=== PATIENT | male | born 1995 | race Caucasian/White ===

== ENCOUNTER 2017-12-15 09:16 | Emergency (ER) | payer OTHER ==
[~2017-12-15] VITALS: Ht 175.3 cm; Wt 61.5 kg
[~2017-12-15 09:16] MED LIST: ACETAMINOPHEN-1 EAC1 PO; ACETAMINOPHEN500 MG PO; CEPHALEXIN500 MG PO; CIPRO500 MG PO; CLINDAMYCIN HC150 MG PO; CLINDAMYCIN HC300 MG PO; IBUPROFEN200 M1 PO; IBUPROFEN400 MG PO; KEFLEX500 MG PO; LEVAQUIN500 MG PO; LEVAQUIN750 MG PO; NAPROSYN500 MG PO; NORCO 5-325 TA1 EACH PO; ONDANSETRON ODT4 MG PO; OXYCODONE-ACET1 EAC1 PO; PERCOCET 5-3251 EACH PO; TYLENOL325 MG PO; ZOFRAN ODT8 MG PO
--- OUTSIDE RECORDS SUMMARY | 2017-12-15 10:17 | XMS | Clinical Summary ---
Demographics + + + | Address | [address] | | | [place] [address] | + + + | Home Phone | | + + + | Preferred Language | Unknown | + + + | Marital Status | Single | + + + | Shinto Affiliation | CHR | + + + | Race | White | + + + | Ethnic Group | Not or | + + + Author + + + | Author | [facility] | + + + | Organization | [facility] | + + + | Address | Unknown | + + + | Phone | Unavailable | + + + Support +------+ + + + +-------+ | Name | Relationship | Address | Phone | +------+ + + + +-------+ ECON | [address] | | [place] | [address] | +------+ + + + +-------+ Care Team Providers + +------+ + | Care Pediatric Immunologist Name | Role | Phone | + +------+ + | No Pcp Per Patient | PP | Unavailable | + +------+ + Source Comments KELSEY is fully live on both [facility] Ambulatory and [facility] InPatient.[facility] Allergies + + + + + + | Active Allergy | Reactions | Severity | Noted | Comments | | | | | Date | | + + + + + + | Amoxicillin | Rash | | 12/18/19 | | | | | | 05 | | + + + + + + | Latex | Hives, Pruritus | | 04/07/20 | | | | | | 11 | | + + + + + + | Morphine | Hives, Edema | | 04/07/20 | | | | | | 11 | | + + + + + + Current Medications + + + +---------+------+------+-------+ | Prescription | Sig. | Disp. | Refills | Star | End | Statu | | | | | | t | Date | s | | | | | | Date | | | + + + +---------+------+------+-------+ | ibuprofen 200 mg | Take 1 Tab by mouth | | | 05/3 | | Activ | | Oral Tablet | every six hours as | | | 020 | | e | | | needed. | | | 12 | | | + + + +---------+------+------+-------+ | ibuprofen 600 mg | Take 1 Tab by mouth | 30 Tab | 0 | 05/3 | | Activ | | Oral Tablet | every eight hours as | | | 0/20 | | e | | | needed for moderate | | | 12 | | | | | pain. Take with | | | | | | | | food and a full | | | | | | | | glass of water. | | | | | | + + + +---------+------+------+-------+ | oxyCODONE, | Take 1 Tab by mouth | 14 Tab | 0 | 05/3 | | Activ | | immediate release, 5 | every six hours as | | | 0/20 | | e | | mg Oral Tablet | needed for severe | | | 12 | | | | | pain. | | | | | | + + + +---------+------+------+-------+ | | Take 1 Tab by mouth | 10 Tab | 0 | 05/3 | | Activ | | trimethoprim-sulfame | two times daily. | | | 0/20 | | e | | thoxazole 160-800 mg | | | | 12 | | | | Oral Tablet | | | | | | | + + + +---------+------+------+-------+ | DIAPER,BRIEF, | 1 Units by Does not | 192 | 11 | 02/2 | | Activ | | ADULT,DISPOSABLE | apply route. Please | Units | | 8/20 | | e | | MiscIndications: | provide pull-up | | | 13 | | | | Spina bifida without | continence diaper, | | | | | | | mention of | small men's size for | | | | | | | hydrocephalus, | management of | | | | | | | lumbar region, | neurogenic bladder, | | | | | | | Neurogenic bladder, | bowel (596.54, | | | | | | | NOS, Neurogenic | 564.81). | | | | | | | bowel | | | | | | | + + + +---------+------+------+-------+ | CATHETER | | 150 | 11 | 12/18 | | Activ | | MiscIndications: | | Each | | 07/05 | | e | | Spina bifida without | | | | 13 | | | | mention of | | | | | | | | hydrocephalus, | | | | | | | | lumbar region, | | | | | | | | Neurogenic bladder, | | | | | | | | NOS | | | | | | | + + + +---------+------+------+-------+ | DIAPER,BRIEF, | 1 Units by Does not | 192 | 11 | 12/18 | | Activ | | ADULT,DISPOSABLE | apply route. Please | Units | | 07/05 | | e | | MiscIndications: | provide pull-up | | | 13 | | | | Spina bifida without | continence diaper, | | | | | | | mention of | small men's size for | | | | | | | hydrocephalus, | management of | | | | | | | lumbar region, | neurogenic bladder, | | | | | | | Neurogenic bladder, | bowel (596.54, | | | | | | | NOS, Neurogenic | 564.81). | | | | | | | bowel | | | | | | | + + + +---------+------+------+-------+ | cephALEXin | Take 2 capsules by | 84 | 0 | 04/0 | | Activ | | (KEFLEX) 500 mg oral | mouth every eight | capsule | | 9/20 | | e | | capsule | hours for 14 days. | | | 14 | | | | | Take all pills. | | | | | | + + + +---------+------+------+-------+ Active Problems + + + | Problem | Noted Date | + + + | History of migraine headaches | 04/07/2011 | + + + | Abnormal gait | 10/09/2010 | + + + | Tethering of spinal cord (HCC) | 10/02/2010 | + + + | Menopausal syndrome | 01/23/2010 | + + + + + | Overview: Parents | | from sibling | | ICD10 | + + + + + | Leg Length Discrepancy, right | 09/12/2009 | + + + | Pes Cavus, right | 06/06/2009 | + + + | Decubitus ulcer of heel | 06/06/2009 | + + + | Contracture of ankle and foot joint | 05/05/2008 | + + + | Monoparesis (HCC) | 05/05/2008 | + + + | Scoliosis | 05/03/2008 | + + + + + | Overview: dextrosc | + + + + + | Visual impairment | 05/03/2008 | + + + + + | Overview: Difficulty tracking upward and to the right noted | | on exam-07-20 | + + + + + | Spina bifida of lumbar region (HCC) | 1995 | + + + + + | Overview: Lipomyelomeningocele- repaired 3-, 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 | + + + + + | Delayed milestones | 1995 | + + + + + | Overview: Slow academic process. - well below grade level in | | all areas. | + + + + + | Lipoma of other specified sites | 1995 | + + + Resolved Problems + + + + | Problem | Noted | Resolved | | | Date | Date | + + + + | Paraparesis (HCC) | 05/05/20 | | | | 08 | 8 | + + + + | Equinus deformity of foot, acquired | 04/21/20 | | | | 07 | 9 | + + + + Family History + + +------+ + | Medical History | Relation | Name | Comments | + + +------+ + | Non-contributory | | | No other known family history of NTD | + + +------+ + + +------+--------+ + | Relation | Name | Status | Comments | + +------+--------+ + Social History + +-------+ +--------+------+ | Tobacco Use | Types | Packs/Day | Years | Date | | | | | Used | | + +-------+ +--------+------+ | Passive Smoke | | | | | | Exposure - Never | | | | | | Smoker | | | | | + +-------+ +--------+------+ + +---+---+---+ | Smokeless Tobacco: | | | | | Current User | | | | + +---+---+---+ + + | Comments: parents smoke outside the house. | + + + + +---------+ + | Alcohol Use | Drinks/We | oz/Week | Comments | | | ek | | | + + +---------+ + | No | | | | + + +---------+ + + + + | Sex Assigned at | Date Recorded | | | | + + + | Not on file | | + + + Last Filed Vital Signs + + + + | Vital Sign | Reading | Time Taken | + + + + | Blood Pressure | 136/72 | 06/03/2012 3:54 PM PDT | + + + + | Pulse | 58 | 06/03/2012 3:54 PM PDT | + + + + | Temperature | 36.3 C (97.4 F) | 06/03/2012 3:54 PM PDT | + + + + | Respiratory Rate | 20 | 04/14/2012 8:00 PM PDT | + + + + | Oxygen Saturation | 97% | 04/14/2012 8:00 PM PDT | + + + + | Inhaled Oxygen | - | - | | Concentration | | | + + + + | Weight | 54.3 kg (119 lb 11.4 | 06/03/2012 3:54 PM PDT | | | oz) | | + + + + | Height | 171.1 cm (5' 7.36") | 06/03/2012 3:54 PM PDT | + + + + | Body Mass Index | 18.55 | 06/03/2012 3:54 PM PDT | + + + + Plan of Treatment + + + + + | Health Maintenance | Due Date | Last Done | Comments | + + + + + | INFLUENZA VACCINE | | | | | (FLU SHOT) | 7 | | | + + + + + Results Not on filefrom Last 3 Months
--- OUTSIDE RECORDS SUMMARY | 2017-12-15 10:17 | XMS | Clinical Summary ---
Demographics + + + | Address | [address] | | | [place] [address] | + + + | Home Phone | | + + + | Preferred Language | Unknown | + + + | Marital Status | Single | + + + | Taoism Affiliation | CHR | + + + [...] [address] | | [place] | [address] | +------+ + + + +-------+ Care Team Providers + +------+ + | Care Director Medical Writing Name | Role | Phone | + +------+ + | No Pcp Per Patient | PP | Unavailable | + +------+ + Source Comments KELSEY is fully live on both [facility] Amb[facility] and [facility] InPatient.[facility] Allergies + + + + + + [...] Lipomyelomeningocele- repaired 3-, 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
[2017-12-15] MEDS ORDERED: MACROBID 100 M100 MG PO (11:01)
[2018-01-05] MEDS ORDERED: CEPHALEXIN500 MG PO (23:25)
[2018-01-05] MEDS ORDERED: TRAMADOL HCL50 MG PO (23:25)
== END 2017-12-15 11:12 | disposition home or self-care (01) ==
LOC: ED 09:16
DX: R45.851 Suicidal ideations (principal); N39.0 Urinary tract infection, site not specified; F17.200 Nicotine dependence, unspecified, uncomplicated
CPT/HCPCS: 80053; 80176; 81001; 84443; 85025; 87077; 87088; 87186; 99284; G0480

== ENCOUNTER 2018-05-04 19:11 | Emergency (ER) | payer OTHER ==
[~2018-05-04] VITALS: Ht 180.3 cm; Wt 61.2 kg
[~2018-05-04 19:11] MED LIST changes: +MACROBID 100 M100 MG PO; +TRAMADOL HCL50 MG PO
[2018-05-04] MEDS ORDERED: KEFLEX500 MG PO (23:11)
== END 2018-05-04 23:40 | disposition home or self-care (01) ==
LOC: ED 19:11
DX: N39.0 Urinary tract infection, site not specified (principal); F17.200 Nicotine dependence, unspecified, uncomplicated; Z88.0 Allergy status to penicillin; Z88.5 Allergy status to narcotic agent; Z91.040 Latex allergy status; Z88.1 Allergy status to other antibiotic agents
CPT/HCPCS: 74177; 80053; 81001; 83690; 85025; 85610; 85730; 96361; 96374; 96375; 99284; J1170; J2405; J7030; Q9967

== ENCOUNTER 2019-10-26 16:30 | Emergency (ER) | payer OTHER ==
[~2019-10-26] VITALS: Ht 180.3 cm; Wt 65.8 kg
--- OUTSIDE RECORDS SUMMARY | ~2019-10-26 | XMS | Encounter Summary ---
Demographics + + + | Address | [address] | | | [place] [address] | + + + | Home Phone | | + + + | Preferred Language | Unknown | + + + | Marital Status | Single | + + + | Baptist Affiliation | CHR | + + + | Race | White | + + + | Ethnic Group | Not or | + + + Author + + + | Author | [facility] | + + + | Organization | [facility] | + + + | Address | Unknown | + + + | Phone | Unavailable | + + + Support + + + + + | Name | Relationship | Address | Phone | + + + + + | Sarahi Orozco | ECON | [address] | | | | | [place] | | | | | [address] | | + + + + + Care Team Providers + +------+ + | Care Flume Tender Name | Role | Phone | + +------+ + | Dajuan Jerome MD | PCP | | + +------+ + Reason for Visit + + + | Reason | Comments | + + + | Spina bifida | | + + + Encounter Details +--------+---------+ + + + | Date | Type | Department | Care Team | Description | +--------+---------+ + + + | 05/03/ | Office | [facility] at [facility] 7th | [place], | Spina Bifida without | | 2007 | Visit | Floor [address] | Neli, EXTRUSION UTILITY WORKER [address] | Mention of | | | | St Mailcode: [facility] | [address] [facility] | Hydrocephalus, | | | | [facility] [place], [place] | [address] [place], [place] | Lumbar Region; | | | | [address] | [address] | Delayed Milestones | | | | [phone] | | | +--------+---------+ + + + Social History + +-------+ +--------+------+ | Tobacco Use | Types | Packs/Day | Years | Date | | | | | Used | | + +-------+ +--------+------+ | Never Assessed | | | | | + +-------+ +--------+------+ + + + | Sex Assigned at | Date Recorded | | | | + + + | Not on file | | + + + + + + + | Job Start Date | Occupation | Industry | + + + + | Not on file | Not on file | Not on file | + + + + + + + + | Travel History | Travel Start | Travel End | + + + + + + | No recent travel history available. | + + documented as of this encounter Progress Neli Kumar - 05/03/2008 10:31 AM [facility] Social Work Note - [facility] Pete, 12 years of age, comes [facility] with his father Yamil and his broth fish Coleman. This is a return visit for Pete, he has a diagnostic list that includes a repair ed lipomyelomeningocele, neurogenic bowel and bladder. Pete lives in [place] with his parents and 10 year old brother Jared. Pete's dad works outside of the family home driving a milk truck, mother (Nicky) works for [employer] . Pete reports that his favorite leisure activities involve playing baseball and soccer w ith his brother. He reports that he has a dirt bike that he enjoys riding and working on. When weather allows, he prefers to be outside and physically active. He is currently on a b aseball team and in a [employer] troop. He has some nice responsibilities at home that includ es washing dishes, taking garbage out and doing some laundry chores. Pete is a 6th grader at [employer] where he is on an IEP and receives academic support in a learning center in math, social studies, science, writing and reading. He is in the resource room m ost of each day, he is mainstreamed for PE, music, library and reading time. He has a bathr oom to use and to store his incontinence supplies. Next fall he will transition to a mid e school, Yamil reports that there has already been an IEP meeting held for transition plann ing. A further review of community resources reveals that Gabriel receives primary health care at the [facility], medical insurance is through [employer] through Nicky's employer. Yamil was candid in his discussion of family finances, insurance does not cover pull ups and the expense is hard for this family to meet. I will look into the Family Suppo rt Program for funding for pull ups for Pete, he is currently using 2 to 4 of the GoodNig ht style (extra large) each day. Raising gas & food prices is also hitting this family hard , Yamil reports that they do have free food pantries in [facility] and Nicky uses them regularly. Family income is too high for food stamp eligibility. These are issues that so cia work might monitor during future visits to clinic for Pete. NELI ROBISON [facility] Social Work Department [facility] phone: [phone] Addendum: 05/05/08, I called [employer] and described what Pete currently using for incontinen ce wear, they will send 3 samples of 2 different sizes of puul up for him to try. I called mom and told her they were coming & asked he to call me back oif one worked for them, I can then place a request in the Family Support Program to pay for the pull ups. documented in this enc ounter Plan of Treatment Not on filedocumented as of this encounter Visit Diagnoses + + | Diagnosis | + + | Spina bifida without mention of hydrocephalus, lumbar region | + + | Delayed milestones | + + documented in this encounter"
--- OUTSIDE RECORDS SUMMARY | ~2019-10-26 | XMS | Encounter Summary ---
Demographics + + + | Address | [address] | | | [place] [address] | + + + | Home Phone | | + + + | Preferred Language | Unknown | + + + | Marital Status | Single | + + + | Jew Affiliation | CHR | + + + | Race | White | + + + | Ethnic Group | Not or | + + + Author + + + | Author | [facility] | + + + | Organization | [facility] | + + + | Address | Unknown | + + + | Phone | Unavailable | + + + Support + + + + + | Name | Relationship | Address | Phone | + + + + + | Sarahi Orozco | ECON | [address] | | | | | [place] | | | | | [address] | | + + + + + Care Team Providers + +------+ + | Care Fuel Cell Battery Technician Name | Role | Phone | + +------+ + | Dajuan Jerome MD | PCP | | + +------+ + Encounter Details +--------+ + + + + | Date | Type | Department | Care Team | Description | +--------+ + + + + | 02/03/ | Procedure - | Digestive Health | Record, Operation | Operative Report | | 1996 | | [place] [facility] [address] | | | | | Transcribed | Nasir Tineo | | | | | | Mailcode: Center | | | | | | [facility] | | | | | | [facility]aling, [address] | | | | | | [place], [place] | | | | | | [address] | | | | | | [phone] | | | +--------+ + + + + Social History + +-------+ [...] + + documented as of this encounter Plan of Treatment Not on filedocumented as of this encounter Procedures + +--------+ + + + | Procedure Name | Priori | Date/Time | Associated Diagnosis | Comments | | | ty | | | | + +--------+ + + + | OPERATION RECORD | | 02/03/1997 | | Results for this | | | | 12:00 AM | | procedure are in the | | | | [facility] | | results section. | + +--------+ + + + documented in this encounter Results OPERATION RECORD (02/03/1997 12:00 AM [facility]) + + | Procedure Note | + + | 02/03/1997 12:00 AM [facility] | | [facility] | | [address], [place] [address] | | [facility] | | | | OPERATION RECORD | | | | Med Rec No.: [id number] Date: 02/03/97 | | | | Name: Pete Orozco Luz | | | | | | ATTENDING SURGEON: Dave Malik M.D. | | Roofing Laborer, | | Urology | | | | CROWNING INSPECTOR(S): Ba Dixon M.D. | | Resident, Urology | | | | PREOPERATIVE DIAGNOSIS(ES): History of urinary tract infection; | | uncircumcised. | | | | POSTOPERATIVE DIAGNOSIS(ES): Same. | | | | OPERATION(S) PERFORMED: Circumcision. | | | | ANESTHESIA: General with penile block at conclusion of | | procedure. 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 He had it closed | | and has | | had no difficulties associated with that. He has, however, had a urinary | | tract infection. He carries no postvoid residual. He has had a normal | | voiding cystourethrogram and a normal ultrasound. Because of his urinary | | tract infection and the fact that he still has his foreskin, he is now taken | | to the Operating Room for circumcision. | | | | FINDINGS: Non-phimotic foreskin, excised without | | difficulty. | | | | SPECIMEN(S) REMOVED: None. | | | | PROCEDURE: The patient was taken to the Operating Room, | | identified, and general anesthesia was | | administered. He was placed | | in a supine position, and his abdomen and genitalia were prepped and draped | | in the usual sterile fashion. | | A circumferential incision was made in the shaft skin at the level of the | | tidwell. The foreskin was then retracted, and another circumferential | | incision was made just proximal to the coronal sulcus. The ring of foreskin | | was then excised. Electrocautery was used to achieve hemostasis, and the | | two skin edges were approximated with interrupted 5-0 chromic sutures. The | | two edges of the frenulum were closed with a pair of interrupted 5-0 | | chromics. 0.5% plain Marcaine was used to perform a penile block at the | | base of the penis. 1 cc was infiltrated at the 10 o'clock and 2 o'clock | | positions. Bacitracin ointment was applied to the incision line. | | | | The patient tolerated the procedure well, and after being extubated he was | | returned to the Post Anesthesia Care Unit in stable condition. The | | estimated blood loss was less than 20 cc. No complications were noted. | | King was present and actively participated in the procedure. | | | | | | | | | | Ba Dixon M.D. | | Resident, Urology | | Dave Malik M.D. | | Roofing Laborer, | | Urology | | | | | | | | W/cjs | | | | A | | | | cc: | | | + + documented in this encounter Visit Diagnoses Not on filedocumented in this encounter"
--- OUTSIDE RECORDS SUMMARY | ~2019-10-26 | XMS | Encounter Summary ---
Demographics + + + | Address | [address] | | | [place] [address] | + + + | Home Phone | | + + + | Preferred Language | Unknown | + + + | Marital Status | Single | + + + | Congregation Affiliation | CHR | + + + | Race | White | + + + | Ethnic Group | Not or | + + + Author + + + | Author | [facility] | + + + | Organization | [facility] | + + + | Address | Unknown | + + + | Phone | Unavailable | + + + Support + + + + + | Name | Relationship | Address | Phone | + + + + + | Sarahi Orozco | ECON | [address] | | | | | [place] | | | | | [address] | | + + + + + Care Team Providers + +------+ + | [facility] [employer] Specialist Name | Role | Phone | + +------+ + PCP | Unavailable | + +------+ + Encounter Details +--------+ + + + + | Date | Type | Department | Care Team | Description | +--------+ + + + + | 02/15/ | Results | [facility] | Dave Malik MD | | | 1995 | Only | Floor [address] | [address] | | | | | [address] Mailcode: [facility] | Marit[facility] Fer[facility] [place], | | | | | [facility] [place], [place] | [place] [address] | | | | | [address] | [phone] | | | | | [phone] | | | +--------+ + + + [...] | + +--------+ + + + | US BLADDER | Routin | 05/02/1996 | | Results for this | | | e | 2:50 PM | | procedure are in the | | | | PDT | | results section. | + +--------+ + + + | CYSTOGRAM, VOIDING | Routin | 02/16/1996 | | Results for this | | | e | 9:30 AM | | procedure are in the | | | | PST | | results section. | + +--------+ + + + | US KIDNEY BILATERAL | Routin | 02/16/1996 | | Results for this | | | e | 8:42 AM | | procedure are in the | | | | PST | | results section. | + +--------+ + + + | US BLADDER | Routin | 02/16/1996 | | Results for this | | | e | 8:42 AM | | procedure are in the | | | | PST | | results section. | + +--------+ + + + documented in this encounter Results US BLADDER (05/02/1996 2:50 PM PDT) + + + + + + | Component | Value | Ref Range | Performed | Pathologist | | | | | At | Signature | + + + + + + | US BLADDER | Radiologist 1: | | | | | | MIGUEL KONG, | | | | | | ADAMA RAMIREZ. | | | | | | | | | | | | | | | | | | [birth year] | | | | | | ULTRASOUND OF THE | | | | | | BLADDER: 05-02-96. | | | | | | DICTATED: 05-02-96. | | | | | | Comparison is made with | | | | | | 02-16-96. FINDINGS: | | | | | | Both kidneys are | | | | | | normal in echotexture. | | | | | | The right | | | | | | measures5.2x3.0x3.0 cm | | | | | | with a volume of 24.4 cc | | | | | | and left 5.1x3.2x2.7 cm | | | | | | with avolume of 23 cc. | | | | | | These volumes are | | | | | | close to the 50th | | | | | | percentile forthe | | | | | | patient's weight. | | | | | | There is no | | | | | | hydronephrosis or | | | | | | hydroureter oneither | | | | | | side. The bladder was | | | | | | incompletely distended | | | | | | with a volume of 11 | | | | | | cc.Considering the | | | | | | degree of bladder | | | | | | distension, the bladder | | | | | | wall appearswithin | | | | | | normal limits. | | | | | | IMPRESSION: 1. Normal | | | | | | renal and bladder | | | | | | ultrasounds. 2. The | | | | | | minimal dilatation of | | | | | | the left renal pelvis | | | | | | seen on theprevious of | | | | | | 02-16-96 is no longer | | | | | | appreciated. END OF | | | | | | IMPRESSION: | | | | + + + + + + + + | Specimen | + + | | + + + +---------+ + + | Performing | Address | City/State/Zipcode | Phone Number | | Organization | | | | + +---------+ + + | [place] [facility] | | | | | [facility] | | | | + +---------+ + + CYSTOGRAM, VOIDING (02/16/1996 9:30 AM PST) + + + + + + | Component | Value | Ref Range | Performed | Pathologist | | | | | At | Signature | + + + + + + | CYSTOGRAM, | Radiologist 1: | | | | | VOIDING | MIGUEL KONG, | | | | | | M.DIon-Radiologist 2: | | | | | | ANTIONETTE RPINCE, | | | | | | ADAMA RAMIREZ | | | | | | | | | | | | 01 | | | | | | 27 60 32 CYSTOGRAM, | | | | | | VOIDIN02-16-96 AT | | | | | | 0850 HOURS | | | | | | | | | | | | Dictated: | | | | | | 02-16-96 PROCEDURE: | | | | | | The patient was | | | | | | catheterized in the | | | | | | [facility]. | | | | | | Thebladder was filled | | | | | | with 50 cc of Renografin | | | | | | retrograde. FINDINGS: | | | | | | There is no | | | | | | ureterocele or other | | | | | | filling defect in | | | | | | thebladder. The | | | | | | bladder is of normal | | | | | | configuration. With | | | | | | filling andvoiding, | | | | | | there is no evidence of | | | | | | reflux. The posterior | | | | | | urethra isnormal. | | | | | | There is mild | | | | | | prominence to the | | | | | | bulbous portion of the | | | | | | urethrawhich may | | | | | | represent a diverticulum | | | | | | or normal variant. | | | | | | The patientemptied | | | | | | incompletely with a | | | | | | moderate sized postvoid | | | | | | residual. IMPRESSION: | | | | | | 1. No evidence of | | | | | | reflux. 2. Moderate | | | | | | sized postvoid residual. | | | | | | 3. Prominent bulbous | | | | | | urethra representing | | | | | | either a normal variant | | | | | | ormild dilatation. END | | | | | | OF IMPRESSION: | | | | + + + + + + + + | Specimen | + + | | + + + +---------+ + + | Performing | Address | City/State/Zipcode | Phone Number | | Organization | | | | + +---------+ + + | [facility] DEPARTMENT OF | | | | | RADIOLOGY | | | | + +---------+ + + US BLADDER (02/16/1996 8:42 AM PST) + + + + + + | Component | Value | Ref Range | Performed | Pathologist | | | | | At | Signature | + + + + + + | US BLADDER | Radiologist 1: | | | | | | MIGUEL KONG, | | | | | | M.DIon-Radiologist 2: | | | | | | ANTIONETTE PRINCE, | | | | | | ADAMA RAMIREZ | | | | | | | | | | | | | | | | | | [birth year] KIDNEY | | | | | | AND BLADDER ULTRASOUND: | | | | | | 02-16-96 at 0842 hours | | | | | | Dictated: 02-16-96 | | | | | | PARENCHYMAL | | | | | | CHARACTERISTICS | | | | | | RIGHT | | | | | | | | | | | | LEFT | | | | | | | | | | | | | | | | | | _ Echo texture | | | | | | Normal | | | | | | | | | | | | Normal | | | | | | Configuration | | | | | | Normal | | | | | | Normal | | | | | | Dimension (cm) | | | | | | 4.8 x 2.7 | | | | | | x 2.4 5.0 x | | | | | | 2.6 x 2.2 Volume (cc) | | | | | | | | | | | | 16 | | | | | | 14 COLLECTING | | | | | | SYSTEMS: | | | | | | RIGHT | | | | | | | | | | | | LEFT | | | | | | | | | | | | | | | | | | ___ Grade | | | | | | | | | | | | Normal | | | | | | Normal PELVIS | | | | | | Dimension | | | | | | Normal | | | | | | Normal | | | | | | Intra/Extra Renal | | | | | | Normal | | | | | | Normal | | | | | | URETER | | | | | | Dimension | | | | | | Normal | | | | | | Normal | | | | | | Cortical Thickness | | | | | | Upper/Mid/Lower | | | | | | Normal | | | | | | Normal | | | | | | BLADDER: | | | | | | | | | | | | | | | | | | Volume: | | | | | | | | | | | | 3.2 x 3.1 x 2.9 equals | | | | | | 15 cc. Post Void | | | | | | Volume (cc): Shape: | | | | | | | | | | | | Normal Wall | | | | | | Thickness: | | | | | | Normal Wall | | | | | | Character: | | | | | | Normal | | | | | | Ureterocele: | | | | | | None COMMENTS: | | | | | | Minimal dilatation of | | | | | | left renal pelvis. | | | | | | IMPRESSION: There is | | | | | | minimal dilatation of | | | | | | the left renal | | | | | | collecting system | | | | | | oninitial evaluation. | | | | | | This is not present on | | | | | | examination 20 | | | | | | minuteslater. At the | | | | | | time of the second | | | | | | examination the bladder | | | | | | volume wasslightly | | | | | | smaller. This | | | | | | dilatation is from | | | | | | either a full bladder | | | | | | orperhaps intermittent | | | | | | reflux. The renal echo | | | | | | texture is isoechoic | | | | | | withthe liver | | | | | | bilaterally which is | | | | | | normal for age. END OF | | | | | | IMPRESSION: | | | | + + + + + + + + | Specimen | + + | | + + + +---------+ + + | Performing | Address | City/State/Zipcode | Phone Number | | Organization | | | | + +---------+ + + | [facility] DEPARTMENT OF | | | | | RADIOLOGY | | | | + +---------+ + + US KIDNEY BILATERAL (02/16/1996 8:42 AM PST) + + + + + + | Component | Value | Ref Range | Performed | Pathologist | | | | | At | Signature | + + + + + + | US KIDNEY | Radiologist 1: | | | | | BILATERAL | MIGUEL KONG, | | | | | | Morris-Radiologist 2: | | | | | | ANTIONETTE PRINCE, | | | | | | ADAMA RAMIREZ | | | | | | | | | | | | | | | | | | [id number] KIDNEY | | | | | | AND BLADDER ULTRASOUND: | | | | | | 4-2-96 at 0842 hours | | | | | | Dictated: 4-2-96 | | | | | | PARENCHYMAL | | | | | | CHARACTERISTICS | | | | | | RIGHT | | | | | | | | | | | | LEFT | | | | | | | | | | | | | | | | | | _ Echo texture | | | | | | Normal | | | | | | | | | | | | Normal | | | | | | Configuration | | | | | | Normal | | | | | | Normal | | | | | | Dimension (cm) | | | | | | 4.8 x 2.7 | | | | | | x 2.4 5.0 x | | | | | | 2.6 x 2.2 Volume (cc) | | | | | | | | | | | | 16 | | | | | | 14 COLLECTING | | | | | | SYSTEMS: | | | | | | RIGHT | | | | | | | | | | | | LEFT | | | | | | | | | | | | | | | | | | ___ Grade | | | | | | | | | | | | Normal | | | | | | Normal PELVIS | | | | | | Dimension | | | | | | Normal | | | | | | Normal | | | | | | Intra/Extra Renal | | | | | | Normal | | | | | | Normal | | | | | | URETER | | | | | | Dimension | | | | | | Normal | | | | | | Normal | | | | | | Cortical Thickness | | | | | | Upper/Mid/Lower | | | | | | Normal | | | | | | Normal | | | | | | BLADDER: | | | | | | | | | | | | | | | | | | Volume: | | | | | | | | | | | | 3.2 x 3.1 x 2.9 equals | | | | | | 15 cc. Post Void | | | | | | Volume (cc): Shape: | | | | | | | | | | | | Normal Wall | | | | | | Thickness: | | | | | | Normal Wall | | | | | | Character: | | | | | | Normal | | | | | | Ureterocele: | | | | | | None COMMENTS: | | | | | | Minimal dilatation of | | | | | | left renal pelvis. | | | | | | IMPRESSION: There is | | | | | | minimal dilatation of | | | | | | the left renal | | | | | | collecting system | | | | | | oninitial evaluation. | | | | | | This is not present on | | | | | | examination 20 | | | | | | minuteslater. At the | | | | | | time of the second | | | | | | examination the bladder | | | | | | volume wasslightly | | | | | | smaller. This | | | | | | dilatation is from | | | | | | either a full bladder | | | | | | orperhaps intermittent | | | | | | reflux. The renal echo | | | | | | texture is isoechoic | | | | | | withthe liver | | | | | | bilaterally which is | | | | | | normal for age. END OF | | | | | | IMPRESSION: | | | | + + + + + + + + | Specimen | + + | | + + + +---------+ + + | Performing | Address | City/State/Zipcode | Phone Number | | Organization | | | | + +---------+ + + | [facility] | | | | | RADIOLOGY | | | | + +---------+ + + documented in this encounter Visit Diagnoses Not on filedocumented in this encounter"
--- OUTSIDE RECORDS SUMMARY | ~2019-10-26 | XMS | Encounter Summary ---
Demographics + + + | Address | [address] | | | [place] [address] | + + + | Home Phone | | + + + | Preferred Language | Unknown | + + + | Marital Status | Single | + + + | Confucianism Affiliation | CHR | + + + | Race | White | + + + | Ethnic Group | Not or | + + + Author + + + | Author | [facility] | + + + | Organization | [facility] | + + + | Address | Unknown | + + + | Phone | Unavailable | + + + Support + + + + + | Name | Relationship | Address | Phone | + + + + + | Sarahi Orozco | ECON | [address] | | | | | [place] | | | | | [phone] | | + + + + + Care Team Providers + +------+ + | Care Respiratory Care Program Director Name | Role | Phone | + +------+ + PCP | Unavailable | + +------+ + Encounter Details +--------+ + + + + | Date | Type | Department | Care Team | Description | +--------+ + + + + | 01/04/ | Office | [facility] | Consult, Cd[facility] | Progress Note | | 2002 | Visit-Trans | | | | | | cribed | | | | +--------+ + + + [...] + documented as of this encounter Progress Notes Fredo, Garment Form Assembler In - 05/26/2006 1:08 AM PDTCLINIC DATE: 01/04/2003 CLINIC: [facility] DISCIPLINE: ORTHOPEDICS ADDENDUM: Pete did have spine films done. These reveal an eight-degree right curve between T3 and L1. He is Risser 0. There are abnormalities in the lumbosacral spine, with what appears to be partial sacralization of the right side of L4 to S1, which is probably the cause for the mild pelvic obliquity seen on the films and on clinical examination. Reyna Buckley M.D. 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 He returns for a full team evaluation in the company of his mother, Nicky Duron, and a family friend. CHIEF CONCERN: Over the last year, there have been intermittent concerns about Pete's lower extremities and whether or not he is developing signs and symptoms of spinal cord tethering. His mother continues to have some concerns about his right lower extremity. DATABASE REVIEW/HEALTH CARE MAINTENANCE: Primary care continues with Dr. Umm Kaufman in [place], [place]. General health is reported to have been good throughout the last year. He has not been hospitalized for any reason overnight. He has had two minor accidents: one a fall backwards from the toilet on which he was standing. For some time after he complained of pain with walking, but this did resolve entirely. A second incident was a fall from a trampoline. At that time, he bruised the fatty portion in the area of his repaired lipomyelomeningocele. This has also healed. Pete is RAST negative and has never had a reaction to exposure to Latex. He does have a history of a rash reaction to amoxicillin and should be considered allergic to amoxicillin. Immunizations are up-to-date and he receives routine dental care from Dr. Mcgee. MEDICATIONS: Ditropan only at 5 mg b.i.d. REVIEW OF SYSTEMS: Except as pertains to the neurological and neuromuscular consequences of his congenital lipomyelomeningocele, this review is negative. NUTRITION: There is a history of consistent growth and good nutritional status. No concerns are identified with regard to Pete and food at today's visit. SOCIAL: Pete lives at home with his parents and two brothers in [place], [place]. He attends first grade and reports that school is difficult for him. PHYSICAL EXAMINATION: Today's weight is 22.2 kg (50th percentile). Standing height is 120 cm (just less than the 50th percentile). Head circumference is 51.5 cm (at the 50th percentile). Blood pressure is 105/56 and heart rate is 107. GENERAL: Pete is alert and active and fully cooperative with today's examination. His head is normocephalic. There is no shunt and no history of hydrocephalus. His eyes are clear. Pupils are equal, round, and reactive to light and accommodation. Red reflexes are bilaterally symmetric. Fundal exam reveals crisp vasculature. Ears, nose, and throat are normal in appearance. Nares are patent. Palate is intact and elevates symmetrically. Teeth and gums are clean and in good condition. Tympanic membranes are both pearly michaud. There is no lymphadenopathy. LUNGS: Clear to auscultation in all sorensen. CARDIAC: Regular rate and rhythm without murmur. ABDOMEN: Soft without distension. There are no masses and no hepatosplenomegaly. There may be a moderate amount of stool palpable in the left lower quadrant. There are well-healed surgical scars. There is a fatty lipoma to the right of his lower lumbar surgical repair. There is only a small amount of residual bruising from the fall from the trampoline. His diaper is well soaked with urine. UROGENITAL: Deferred today. NEUROMUSCULOSKELETAL: Pete sits without outside support and with good balance. His back appears clinically straight. On closer inspection, there is noted a mild dextroscoliosis in the lumbar region. Upper extremity range of motion is full without spasticity and without asymmetry. Cranial nerves III-XII are grossly intact. Deep tendon reflexes are 2+ and symmetrical including patellar, Achilles responses are equivocal. Examination of lower extremities finds hip and knee range of motion to be intact without flexion contractures. There is some asymmetry in the pelvis with pelvic obliquity. Muscle mass in lower extremities appears to be symmetric with moderate bulk. What is remarkable on examination is the arch of the right foot is more marked than the left foot. In addition, the right foot positioned in varus and is quite stiff when attempting to manipulate to neutral. He is fully sensate throughout his lower extremities. He is able to walk on his toes and heels, to jump, to balance on each foot for several seconds. In gait, he does continue to demonstrate malpositioning of the right foot with the lateral border in turning in varus. Strength overall is good. He completed [id number], rapid alternating movement, and sequential finger touching quite well today. NEUROSURGICAL: Pete has had periodic complaints of leg and back pain over the last several years. Generally these complaints resolved spontaneously. There have been increasing concerns during the last year and he underwent a spinal MRI in May of last year. Results were reassuring. IMPRESSION: Today there are signs of increasing right lower extremity deformity and additional concerns about spinal cord tethering are raised. It is recommended that Pete obtain another spinal MRI and spinal x-ray as soon as possible. The spinal x-ray was obtained this afternoon and degree of scoliosis has actually lessened by the radiologist's report from 12 degrees to 8 degrees. There was not time for MRI imaging today. Pete will return in the near future for consideration of untethering surgery should signs and symptoms continue to progress. NEUROGENIC BLADDER: Pete's early urological profile was excellent. He did not require catheterization and had had only one urinary tract infection in his lifetime, which was attributed to the presence of his foreskin. He underwent a circumcision shortly thereafter, in 1996. It was not until May 2000 that Pete's bladder began to demonstrate signs of neurogenic complications. A clean intermittent catheterization program was initiated at that time. There have been questions about compliance with the four hour schedule of catheterization and also some concern that Pete was expected to be independent with this program at an early age. Urology recommendations in May 2002 included the family being involved with Pete's program, making certain that his timing was accurate and that he was performing the procedure itself appropriately. In November 2001, he had been noted to have a new mild grade 2 hydronephrosis and was begun on Ditropan 5 cc twice daily. He continues on this dose today. Follow-up ultrasounds have been normal without evidence of hydronephrosis. Today's renal ultrasound is normal as well. RECOMMENDATIONS: Pete is to continue with his current regimen. Please refer to report of Dr. Danny Dhaliwal for additional information. NEUROGENIC BOWEL: Ptee does indeed have a neurogenic bowel without warning sensation of impending bowel movement. His typical pattern is to have 2-3 stools in his diaper each day. The stool volume is often small, although he will have more bulky stools at least once daily. There are some incidents of constipation at which time an enema is given. His mother believes the last time he needed an enema was three months ago. Pete takes no supplemental fiber and gets fiber only from the foods that he eats. There is no one time each day when he is most likely to have a bowel movement. RECOMMENDATIONS: I believe Pete would benefit from a habit-training program. It is suggested that the family select the time of day that works best for Pete and the family. Pete will have a time reserved for sitting on the toilet, a Dulcolax suppository will be administered each day at that time or a half-hour prior to that time in the hope that a more full, complete bowel emptying will occur. It is hoped that this more complete emptying will diminish the number of interval small stools that go to his diaper. Planning for continence for Pete as he progresses through the school years is an important part of his social integration and this is stressed to Nicky today. It is recommended that she use a Dulcolax suppository (5 mg) each day for at least two weeks in an effort to establish a daily bowel habit. ORTHOPEDICS: Pete has historically been stable in this area with full function and only minor deformity in the right lower extremity. Today's exam is alarming due to a measurable change in his right foot and ankle in the last three months. Today's recommendations are for additional workup to rule out spinal cord tethering and surgery should tethering be diagnosed. Please refer to report of Dr. Reyna Buckley for additional findings and recommendations. PSYCHOEDUCATIONAL: Pete has participated in Early Intervention services. He did attend [employer] and has special education evaluations. He was evaluated in February 2001, and overall findings were a low average range of function. His Full Scale score was 89. There was no significant discrepancy between his Verbal and Performance. He does have some difficulty with first grade by report. Reading, language, alphabet and numbers are the topics he identified as part of his curriculum. It is recommended that school reports be requested for review at the time of his next [facility]. SUPPLIES/MEDICATIONS: On interview with Nicky today, it is learned that Pete's prescription for Ditropan ran out last October. Nicky did not contact either Dr. Kaufman or this clinic for an updated prescription. She is encouraged today to contact her primary health care physician for any updated prescriptions that are needed. The same is true for any catheterization supplies that she needs. PLAN FOR FOLLOW-UP: Pete is now on the schedule for return as soon as possible for an MRI of his spine to rule out spinal cord tethering. Any additional comparison studies will be obtained at that time. His next full [facility] date will be determined after results of this current assessment are known. Nicky is encouraged to contact the clinic for any questions or concerns that arise in the interim. Dennise Solares, RN, MS, CPNP Pediatric Nurse Practitioner CA:[id number] C: 01/17/2003 rac cc: Primary care physician Family [id number] signed by Fredo, Garment Form Assembler In at 05/26/2006 1:08 AM Barak huddleston, Garment Form Assembler In - 05/21/2006 3:11 AM PDTCLINIC DATE: 01/04/2003 CLINIC NAME: [facility] DISCIPLINE: SOCIAL WORK Pete, 7 years of age, comes to clinic today with his mother, Nicky. This is a return visit for Pete. He has been followed in our clinic for his needs related to a repaired lumbosacral lipomyelomeningocele and has had some very mild orthopedic needs, as well as neurogenic bowel and bladder issues. He continues to live in [place] with his parents and two brothers. Brother Jared is 5 years of age, and brother Dave is 11 (Dave is on medication for Attention-Deficit/Hyperactivity Disorder). This is a family that struggles financially and Pete's mother may have some cognitive and memory challenges. It appears that there has been some poor follow-up regarding medication and this psychosocial rehabilitation counselor is very available to help monitor these issues. Currently, Pete's father is working outside the home as a cable maintainer and Nicky is home multimedia designer but reports she is looking for work. 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 Nicky reports that teachers are reporting that he is making little progress learning to read, has some language delays, and they are doing some academic testing of him at this time. He does do his own catheterization, although an aide watches and makes sure that he is thorough. He keeps supplies in a bathroom at the school that is available only for Pete as well as another student that has incontinence supplies. He was able to identify a number of play activities that he enjoys, most all of those are out-of-door activities such as soccer and football. The reader is referred to Pediatrics and Neurosurgery reports for concerns regarding possible spinal cord tethering. Further review of community resources reveals that Pete's family has reapplied for Supplemental Security income on his behalf (this was denied in the past). Dr. Umm Kaufman is his primary health care provider and medical coverage is through the [facility] is the managed care organization. This psychosocial rehabilitation counselor remains very available if needed. Neli Robison LCSW Social Work [id number] signed by Fredo, Garment Form Assembler In at 05/21/2006 3:11 AM Barak huddleston, Garment Form Assembler In - 05/21/2006 3:11 AM PDTCLINIC DATE: 01/04/2003 CLINIC NAME: [facility] DISCIPLINE: PEDIATRIC NEUROSURGERY Pete and his mother return to clinic today for their follow-up. This young child has a history of lipomyelomeningocele that was repaired in 1995 shortly after . He had some complaints of low back pain in January of 2002 and has been watched since that time for evidence of tethered cord. According to mother, he does have problems with leg pain, especially across the lower legs bilaterally. She noticed that he is not running and playing as much as he has in the past because of the pain. He also can describe his legs falling asleep or a needles and pins sensation in his legs periodically. She has not noted any change in bowel or bladder function. Finally, Dr. 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 He has increased toe-curling on the right as well as increased arching on the right. Today in the office, Pete is awake, alert, appropriate, and not cooperative. His pupils are equal, round, and reactive to light and his extraocular movements appear intact. His face is symmetrical and his tongue protrudes in the midline. Motor strength in the upper extremities is 5/5 throughout. Motor strength in the lower extremities appears to be 5/5 and he is able to perform heel and toe walking well, although he does exhibit curling toes with an inward rotation of his right lower extremity and rising up on his ankle is not as easily done as it is on the left. I was unable to elicit deep tendon reflexes in the lower extremities. A young child with history of lipomyelomeningocele and complaints and findings suggestive of possible tethered cord. Dr. Soha Nettles reviewed the magnetic resonance imaging (MRI) scan and since it was done in May of 2002 she feels that a new scan is warranted. We will schedule him into [facility] in the near future with a MRI scan of the lumbar spine to evaluate for possible tethered cord. This was discussed with mother and she wishes to proceed. Brooke Soto R.N., M.S.N., A.R.N.P. Nurse Practitioner SL/x36 [id number] signed by Fredo, Garment Form Assembler In at 05/21/2006 3:11 AM Barak huddleston, Garment Form Assembler In - 05/21/2006 3:11 AM GLADYS DATE: 01/04/2003 CLINIC NAME: [facility] DISCIPLINE: ORTHOPEDICS DIAGNOSES: 1. Lumbosacral lipomyelomeningocele. 2. Scoliosis. 3. Right cavovarus foot deformity. HISTORY: This is a 7-year-old male here for routine full clinic follow-up. His mother is concerned about the increasing right foot deformity, which she says she noticed has worsened over the past month. Pete complains of tingling feelings in his right foot. He occasionally has bilateral lower leg pain, which seems to be more frequent than it was when he was last seen here last summer. He occasionally has back pain, but this has not changed. With activity, he also has right foot pain, which he indicates is on the medial aspect of his foot. PHYSICAL EXAMINATION: Standing, he has slight pelvic obliquity. Right lower extremity appears to be smaller circumference than the left. Right foot has the appearance of being smaller than the left. Gait is remarkable now for fixed hindfoot varus on the right, fixed clawing of the toes on the right foot, and supinated forefoot. In the past, this was primarily dynamic, but today, it is fixed. Sitting, he has rigid cavovarus on the right, and contractures of the toe flexors. I cannot detect any isolated weakness or change in his strength of his right foot, compared to last summer, but the rigid appearance of his foot has certainly worsened. Left lower extremity appears normal. Standing AP x-rays of his spine are ordered today, but have not been done, and will be deferred until the same time as obtaining the MRI of the spine. IMPRESSION: Pete appears to have worsening of contractures on his right lower extremity, with some mild increased symptoms, which may be attributed to tethered cord. PLAN: Discussed my concerns with neurosurgery, with recommendation for evaluation for tethering, while at the same time obtaining a standing x-ray of his spine for follow-up of scoliosis. He has had a 12-degree curve in the past. I would like to see him back in approximately three months, to reevaluate his foot. We may need to order an AFO, or possibly be able to get by with a supramalleolar AFO for his right foot alignment. Reyna Buckley M.D. RM:[id number] signed by Fredo, Garment Form Assembler In at 05/21/2006 3:11 AM PDTInt flaquito, Garment Form Assembler In - 05/21/2006 3:11 AM PDTCLINIC DATE: 01/04/2003 CLINIC: [facility] DISCIPLINE: PEDIATRIC UROLOGY SUBJECTIVE: Pete is a 7-year-old male with history of neurogenic bladder secondary to lumbosacral lipomyelomeningocele. This was repaired in January of 1996. He has a neurogenic bladder and has had only a single urinary tract infection in his life which occurred as an infant. He is supposed to be catheterizing every four hours with an #8 Jordanian catheter and in the past has done this without parents' involvement. His mother reports that recently they ran out of catheters and have not been catheterizing for several days now. Also they ran out of Ditropan so he has not been receiving that medication either. The family reports that he is minimally damp between catheterizations when catheterizing appropriately and taking his Ditropan. He does have fecal accidents once or twice a day. On a visit a year ago he was noted to have new mild grade II hydronephrosis and was started on Ditropan at 5 cc twice a day. Follow-up ultrasound at the visit six months later showed no evidence of hydronephrosis. At his visit last April there was concern about a possible tethered cord due to lower extremity weakness and gait abnormality; however, he then underwent a magnetic resonance imaging scan, and reconsultation with pediatric neurosurgery found no concerns for tethered cord. OBJECTIVE: A healthy, happy appearing young boy in no acute distress. He is not obese. Weight is 22.2 kg. Blood pressure 105/56. Heart rate 107. Abdomen was soft, non-tender, no masses or organomegaly. Bladder was not palpable. Genitourinary examination revealed Masoud stage I circumcised phallus without lesions, normal meatus. Both testicles are descended and normal to palpation without hernia, hydrocele, varicocele or tumor. Anus had decreased tone. He was catheterized today with a #10 Jordanian catheter without difficulty. This obtained approximately 100 cc of urine. No skin breakdown, lesions or rash on his bottom. Ultrasound today shows normal kidneys. The right 7.2, left 7.1 cm in length, with symmetric volumes at 57 cc each. No evidence of hydronephrosis, no hydroureter. Bladder was trabeculated with 100 cc of pre-catheterization volume. ASSESSMENT: 1. Neurogenic bladder. 2. Neurogenic bowel. 3. Resolution of previously noted left hydronephrosis. 4. Problems with catheterization compliance. PLAN: 1. Increase catheter size to #10 Jordanian and catheterize every four hours. 2. Restart Ditropan at 5 mg twice a day. 3. I again instructed the family about the importance of being involved with Pete's catheterization to make sure that it is being done appropriately and on a timely fashion. We discussed the potential side effects of renal function deterioration and end-stage renal disease if catheterization is neglected. We again went over not treating asymptomatic urinary tract colonizations as outlined in the previous note from June 01, 2002. 4. He is otherwise doing well. I plan to see him back in six months with a follow-up ultrasound. Danny Dhaliwal M.D. Clinical Chemical Instrumentation Officer, Pediatric Urology [id number] CC: [facility]MM KAUFMAN MD [address] [facility] [place] [address] [id number] signed by Interface, Garment Form Assembler In at 05/21/2006 3:11 AM PDTBalta huddleston, Garment Form Assembler In - 05/21/2006 3:11 AM PDTCLINIC DATE: 01/04/2003 CLINIC NAME: [facility] DISCIPLINE: PHYSICAL THERAPY Pete attended clinic today accompanied by his mother. He is a boy of 7-years 1-month of age who has lumbosacral lipomyelomeningocele. He has long had asymmetry with weakness in his anterior compartment muscles on the right. Today his mother reports that he has further in-turning of his right foot. Pete was awake, alert, and responsive for me. He has trouble participating for valid formal manual muscle testing, but he did comply with all my requests for functional demonstration of strength. Musculoskeletal examination reveals that he now has a rigid caval varus foot. He has long had postural attitude of caval varus, but it has been correctable to and beyond neutral, and even in a fashion that was normally supple. Today he is reducible to and beyond neutral for his varus components, but I could not reduce his cavus foot. He also is displaying clawing of all of his toes. Functionally, he was able to walk, run, hop on both feet, and hop on each foot sequentially. However, he was only willing to do this three times on the right foot, whereas a year ago he was able to do it almost indefinitely. He did skip, but did not ever do the skipping maneuver on the right foot. He was able to walk on his heels and on his tiptoes, and on the lateral borders of his feet, but was unable to walk on the medial borders of his feet. He indicated subjective perception of instability at the right foot when he tried to walk on the lateral borders of his feet. Neuromotor exam was benign for any changes in his resting muscle tone. In fact, I felt his resting muscle tone to be normal to passive movement throughout and equivalent and symmetric in all of his limbs. His toes were unequivocally down going on the left, but showed very little movement, although it was down going on the right. I could not detect any sensory loss whether to light touch, deep pressure, proprioception, or kinesthesia. He did not display any adventitious movements with the right lower limb. Pete did give me the visual impression of having a leg length discrepancy, which I have never appreciated before. I measured and found equal leg length measurements and then determined that he is subtly hiking his pelvis on the right side. The reader is referred to a report from Orthopedics and Neurosurgery from the same date for further discussion about possibility of tethering with Pete. I discussed my findings with them and with mother. My assessment was that I could not detect any neurologic signs underlying the progression and was inclined to consider this a progression of long-standing muscle imbalance. However, in either case, I will plan to reevaluate Pete upon request or at his next scheduled full team appointment with the [facility]. Raul Zamora Physical Therapist [id number] signed by Interface, Garment Form Assembler In at 05/21/2006 3:11 AM [facility] umented in this encounter Plan of Treatment Not on filedocumented as of this encounter Visit Diagnoses Not on filedocumented in this encounter"
--- OUTSIDE RECORDS SUMMARY | ~2019-10-26 | XMS | Encounter Summary ---
Demographics + + + | Address | [address] | | | [place] [address] | + + + | Home Phone | | + + + | Preferred Language | Unknown | + + + | Marital Status | Single | + + + | Hindu Affiliation | CHR | + + + | Race | White | + + + | Ethnic Group | Not or | + + + Author + + + | Author | [facility] | + + + | Organization | [facility] | + + + | Address | Unknown | + + + | Phone | Unavailable | + + + Support + + + + + | Name | Relationship | Address | Phone | + + + + + | Sarahi Orozco | ECON | [address] | | | | | [place] | | | | | [address] | | + + + + + Care Team Providers + +------+ + | Care Occupational Hygienist Name | Role | Phone | + +------+ + | Umm Kaufman MD | PCP | | + +------+ + Encounter Details +--------+ + + + + | Date | Type | Department | Care Team | Description | +--------+ + + + + | 01/13/ | Math And Science Division Chair | [facility] | Shiraz Segal, | Lipomyelomeningocele | | 2012 | | Floor [address] | [address] | (Primary Dx); | | | | St Mailcode: [facility] | [place], [place] | Neurogenic bladder, | | | | [facility] [place] | [address] | NOS; Neurogenic | | | | [address] | [phone] | bowel | | | | [phone] | | | +--------+ + + + [...] + +---------+ + | Alcohol Use | Drinks/Week | oz/Week | Comments | + + +---------+ + | No [...] + | Diagnosis | + + | Lipomyelomeningocele - Primary Spina bifida without mention of hydrocephalus, lumbar | | region | + + | Neurogenic bladder, NOS | + + | Neurogenic bowel | + + documented in this encounter"
--- OUTSIDE RECORDS SUMMARY | ~2019-10-26 | XMS | Encounter Summary ---
Demographics + + + | Address | [address] | | | [place] [address] | + + + | Home Phone | | + + + | Preferred Language | Unknown | + + + | Marital Status | Single | + + + | Mormonism Affiliation | CHR | + + + | Race | White | + + + | Ethnic Group | Not or | + + + Author + + + | Author | [facility] | + + + | Organization | [facility] | + + + | Address | Unknown | + + + | Phone | Unavailable | + + + Support + + + + + | Name | Relationship | Address | Phone | + + + + + | Sarahi Orozco | ECON | [address] | | | | | [place] | | | | | [address] | | + + + + + Care Team Providers + +------+ + | Care Children'S Tutor Nursery Name | Role | Phone | + +------+ + PCP | Unavailable | + +------+ + Encounter Details +--------+ + + + + | Date | Type | Department | Care Team | Description | +--------+ + + + + | 07/02/ | Office | [facility] | Consult, [facility] | Progress Note | | 2005 | Visit-Trans | | | | | [...] documented as of this encounter Progress Notes Interface, Reed Dipper In - 07/16/2005 5:02 AM PDT [id number] [facility] Date: 07/02/2005 Clinic Name: [facility] Diagnosis: Lumbosacral lipomyelomeningocele. History: This is a 9-year-old male here today with his father for routine full clinic followup. 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 In February 2004, he was noted to have an increase in right foot deformity, with fixed hindfoot varus, clawing of the toes, supinated forefoot and ankle equinus. He was not braceable at that point. Therefore, he was referred to Dr. Cobb for surgical correction. In December 2004, Dr. Cobb performed right plantar fasciotomy, intrinsic muscle stripping, anterior tibialis tendon transfer to the dorsum of the midfoot and lengthening of the flexor hallucis longus and flexor digitorum longus tendons. Since the cast was removed, he has been in a new solid ankle AFO which he wears virtually learning designer. Father reports that Pete is very happy with this brace, and both Pete and his father are happy with the appearance of his foot. Pete also has had scoliosis noted on previous x-rays, maximum of 12 degrees in 2001 and down to 8 degrees in 2002. He reports occasional discomfort in his back when he lies on something too hard. He has, what he states is, growing pains in his left calf, and pain in the right lower leg which father reports seems to be a complaint after he has been very active. Father says that Pete complains of this pain a couple of times a week, starting after he got out of the cast following his foot and ankle surgery. Father is especially concerned, but things seem to be from muscle. Physical Examination: On exam, Pete indicates the area of the anterior tibialis muscle, and I suspect it is related to the tendon transfer. On exam, right lower extremity is visibly smaller than the left. There is very slight leg length difference. There is slight rotation of the pelvis, with posterior rotation on the right side. Hips have full unrestricted range of motion. Sitting, he appears to have right lumbar lordosis, but this is not borne out on imaging studies. He has full flexion and extension of both knees. Left lower extremity appears normal in all respects. On the right, he still has fixed clawing of his toes and ankle dorsiflexion to neutral. However, the severe cavus which was present a year ago is much less. He was able to stand with both heels down, although he cannot really walk well on his right heel elevating all of his toes. He runs fairly well. There is still a mild component of supination, but overall, he looks much much better. The brace fits well, although there is a bit of lateral bulging at the ankle, but he seems to be comfortable in it, and it is giving him good support. Diagnostic Data: He had a standing AP x-ray of the spine today which shows a completely straight spine with no evidence of scoliosis. Impression: He is doing much better. I think his right leg pain is muscular in origin. If it worsens, then I recommend getting x-rays of his lower leg to rule out stress fracture, but his clinical symptoms are inconsistent with that diagnosis. Plan: Follow up next routine full clinic appointment. Reyna Buckley M.D. / SAL[facility]OR [id number] / [id number] / [id number] / Electronically signed by Reyna Buckley 07-15-2005 11:48:42 AM documented i n this encounter Plan of Treatment Not on filedocumented as of this encounter Visit Diagnoses Not on filedocumented in this encounter"
--- OUTSIDE RECORDS SUMMARY | ~2019-10-26 | XMS | Encounter Summary ---
Demographics + + + | Address | [address] | | | [place] [address] | + + + | Home Phone | | + + + | Preferred Language | Unknown | + + + | Marital Status | Single | + + + | Spiritism Affiliation | CHR | + + + | Race | White | + + + | Ethnic Group | Not or | + + + Author + + + | Author | [facility] | + + + | Organization | [facility] | + + + | Address | Unknown | + + + | Phone | Unavailable | + + + Support + + + + + | Name | Relationship | Address | Phone | + + + + + | Sarahi Orozco | ECON | [address] | | | | | [place] | | | | | [address] | | + + + + + Care Team Providers + +------+ + | Care Comfort Station Supervisor Name | Role | Phone | + +------+ + | Dajuan Jerome MD | PCP | | + +------+ + Encounter Details +--------+---------+ + + + | Date | Type | Department | Care Team | Description | +--------+---------+ + + + | 11/15/ | Office | [facility] | Bhavna Verduzco, | Neurogenic bladder, | | 2008 | Visit | Urology [address] | PNP [address] | NOS; | | | | [place] | [address] | Lipomyelomeningocele | | | | [place] | [place], [place] | ; Unspecified | | | | [place], [place] | [address] | urinary incontinence | | | | [address] | [phone] | | | | | [phone] | | | +--------+---------+ + + + Social History + +-------+ +--------+------+ | Tobacco Use | Types | Packs/Day | Years | Date | | | | | Used | | + +-------+ +--------+------+ | Never Smoker | | | | | + +-------+ +--------+------+ + + +---------+ + | Alcohol Use [...] documented as of this encounter Progress Notes Bhavna Verduzco PNP - 11/29/2009 9:26 AM PST Addended by: BHAVNA VERDUZCO NP on: 0 Modules accepted: Orders Bhavna Murphy PNP - 11/15/2009 8:49 AM PSTUrodynamics Examination Indications: Pete Orozco is a 13 y.o. male with a history of ge: 13 years old lumbosacral lipomyelomeningocele with neurogenic bladder. He is on CIC with 10 fr catheter 1-2 times pe r day as he refuses to cath more often. He has tried anticholinergics in the past including Oxytrol patch but was not successful. MILTON demonstrated mild left pelvocaliectasis that resol vivienne with cathing. He leaks intermittently through the day. He presents today for UDS. Procedures: 1. Complex cystometrogram 2. Electromyography of urethral sphincter 3. Voiding pressure study 4. Intraabdominal pressure monitoring 5. Voiding cystourethrogram 6. Injection of contrast for cystogram Procedure: At 1435 (time), prior to the beginning of the procedure, the team paused to verify the jalen ent s identity, the procedure to be performed (in accordance with the consent,) and the co rrect side/site. The patient was positioned appropriately. All relevant images and results w ere properly labeled and displayed. We addressed antibiotic prophylaxis and fluids for irrig ation as applicable to this patient. Any safety precautions were addressed. The following te am members were present during the team pause ALE Smith and RAKAN Black. Following informed consent, the patient's urethral meatus was prepped with Betadine and the lubricated urodynamics catheter was inserted. The post-void residual was measured. The EMG pads were placed appropriately, and the rectal pressure transducer was inserted into the rec desi. Infusion of dilute contrast was begun and infused at a rate of 5-20 ml/min per protocol . Continuous calibrated electronic pressure monitoring of the bladder, abdomen, and detrusor were recorded. The electromyography activity of the pelvic floor musculature was also cont inuously recorded. Fluoroscopy was used to image the bladder throughout the procedure. Once the filling phas e was completed and leak point pressures determined, the catheters and EMG pads were removed . The patient tolerated the procedure well, and there were no complications. Results: 1. Bladder capacity 450 ml 2. Trabeculated oblong bladder wall 3. Bladder neck slightly peaked open at rest 4. No VUR 5. No post cath residual 6. Areflexic bladder 7. Poor compliance 8. No DLPP 9. VLPP 55 cm of H2O at end filling Okay bladder capacity with poor compliance, highly trabeculated, does not leak until <40 cm of H2O Recommendations: CIC at least 5 times per day Anticholinergic Dr. Douglas was available, if needed, for the above mentioned procedure. documented in this encounter Plan of Treatment Not on filedocumented as of this encounter Procedures + +--------+ + + + | Procedure Name | Priori | Date/Time | Associated Diagnosis | Comments | | | ty | | | | + +--------+ + + + | DC | Routin | 11/15/2009 | Neurogenic | Results for this | | URETHROCYSTOGRAM+VOI | e | | bladder, NOS | procedure are in the | | DING | | | Lipomyelomeningocele | results section. | | | | | Unspecified | | | | | | urinary incontinence | | + +--------+ + + + | DC INTRAABDOMINAL | Routin | 11/15/2009 | Neurogenic | Results for this | | PRESSURE TEST | e | | bladder, NOS | procedure are in the | | | | | Lipomyelomeningocele | results section. | | | | | Unspecified | | | | | | urinary incontinence | | + +--------+ + + + | DC URINE VOIDING | Routin | 11/15/2009 | Neurogenic | Results for this | | PRESSURE STUDY | e | | bladder, NOS | procedure are in the | | | | | Lipomyelomeningocele | results section. | | | | | Unspecified | | | | | | urinary incontinence | | + +--------+ + + + | DC ANAL/URINARY | Routin | 11/15/2009 | Neurogenic | Results for this | | MUSCLE STUDY | e | | bladder, NOS | procedure are in the | | | | | Lipomyelomeningocele | results section. | | | | | Unspecified | | | | | | urinary incontinence | | + +--------+ + + + | DC COMPLEX | Routin | 11/15/2009 | Neurogenic | Results for this | | CYSTOMETROGRAM | e | | bladder, NOS | procedure are in the | | | | | Lipomyelomeningocele | results section. | | | | | Unspecified | | | | | | urinary incontinence | | + +--------+ + + + | DC INJECTION FOR | Routin | 11/15/2009 | Neurogenic | Results for this | | BLADDER X-RAY | e | | bladder, NOS | procedure are in the | | | | | Lipomyelomeningocele | results section. | | | | | Unspecified | | | | | | urinary incontinence | | + +--------+ + + + documented in this encounter Results DC INJECTION FOR BLADDER X-RAY (11/15/2009) + + + | Narrative | Performed At | + + + | See progress note | | + + + DC ANAL/URINARY MUSCLE STUDY (11/15/2009) + + + | Narrative | Performed At | + + + | See progress note | | + + + DC URINE VOIDING PRESSURE STUDY (11/15/2009) + + + | Narrative | Performed At | + + + | See progress note | | + + + DC INTRAABDOMINAL PRESSURE TEST (11/15/2009) + + + | Narrative | Performed At | + + + | See progress note | | + + + DC COMPLEX CYSTOMETROGRAM (11/15/2009) + + + | Narrative | Performed At | + + + | See progress note | | + + + DC URETHROCYSTOGRAM+VOIDING (11/15/2009) + + + | Narrative | Performed At | + + + | See progress note | | + + + documented in this encounter Visit Diagnoses + + | Diagnosis | + + | Neurogenic bladder, NOS | + + | Lipomyelomeningocele Spina bifida without mention of hydrocephalus, lumbar region | + + | Unspecified urinary incontinence | + + documented in this encounter"
--- OUTSIDE RECORDS SUMMARY | ~2019-10-26 | XMS | Encounter Summary ---
Demographics + + + | Address | [address] | | | [place] [address] | + + + | Home Phone | | + + + | Preferred Language | Unknown | + + + | Marital Status | Single | + + + | Mosque Affiliation | CHR | + + + | Race | White | + + + | Ethnic Group | Not or | + + + Author + + + | Author | [facility] | + + + | Organization | [facility] | + + + | Address | Unknown | + + + | Phone | Unavailable | + + + Support + + + + + | Name | Relationship | Address | Phone | + + + + + | Sarahi Orozco | ECON | [address] | | | | | [place] | | | | | [address] | | + + + + + Care Team Providers + +------+ + | Care Clinical Trial Associate Name | Role | Phone | + +------+ + | Dajuan Jerome MD | PCP | | + +------+ + Reason for Visit Consultation (Routine) +--------+--------+ + + + + | Status | Reason | Specialty | Diagnoses / | Referred By | Referred To | | | | | Procedures | Contact | Contact | +--------+--------+ + + + + | Closed | | [facility] Spina | Diagnoses | [place] | Spina | | | | Bifida | Spina | Dajuan Arguelles MD | Bifida [address] | | | | | bifida | [place] | [facility] | | | | | without | COUNTY | Mailcode: | | | | | mention of | HEALTH DEPT | [facility] | | | | | hydrocephalu | [address] [place] [address] | [place], [place] | | | | | s, lumbar | [place], | [address] | | | | | region | [place] [address] | Phone: | | | | | Neurogenic | Phone: | [phone] | | | | | bladder, NOS | [phone] | Fax: | | | | | Procedures | Fax: | [phone] | | | | | SB SPECIAL | [phone] | | | | | | MM, EA | | | +--------+--------+ + + + + Encounter Details +--------+---------+ + + + | Date | Type | Department | Care Team | Description | +--------+---------+ + + + | 01/16/ | Office | [facility] | Justice Douglas, | Spina bifida without | | 2009 | Visit | Urology [address] | [address] | mention of | | | | [place] | [address] | hydrocephalus, | | | | [place] | [place], [place] | lumbar region; | | | | [place], [place] | [address] | Neurogenic bladder, | | | | [address] | [phone] | NOS | | | | [phone] | | | +--------+---------+ + + + [...] documented as of this encounter Progress Notes Justice Douglas MD - 01/16/2010 8:25 PM PSTFormatting of this note might be different fro m the original. Pediatric Urology Clinic Note Patient: Pete Rendon Pam [id number] Date of Visit: 01/16/2010 Attending Provider: Naty Douglas MD History of Present Illness: 14 yo with MMC and NGB and bowel. He comes in today for f/u. He had a nl u/s in May 2009 but was not cathing regularly. He had a UDS study showing trab elculated bladder with compliance changes. He had increased his cathing scheduled. He stat es that he is cathing 5 times a day (am, 2 times at school, dinnertime, and before bed) but his mother indicates that he is only using 2 boxes of catheters. He denies problems cathing (with the exception of the "homemade" cath he tried earlier this year). No UTIs. He state s that he rarely leaks urine between caths but he wears diaper for bowel and bladder acciden ts. He has been taking 5 mg of ditropan xl and states that this has helped him a little. Vikki arguelles has frequent bowel accidents. Past Medical History: Past Medical History Diagnosis Date Neurogenic bladder Neurogenic bowel Spina bifida without mention of hydrocephalus, lumbar region 1995 Lipomyelomeningocele- repaired , second untethering 02-16 Neurogenic bladder, NOS 1995 Inconsistent CIC Neurogenic bowel 1995 Chronic constipation, incontinent in past. Delayed milestones 1995 Slow academic process. - well below grade level in all areas. Visual impairment 05/03/2008 Difficulty tracking upward and to the right noted on exam-9-04 Past Surgical History: Past Surgical History Procedure Date Pr release tethered spinal cord,lumbr 02/20/2003 First repair, release of lipomyelomeningocele 01/1996 Right ankle/foot orthopedic surgery 12/2004 DR. LUNA COTTRELL Right ankle/foot complex orthopedic surgery 10/26/07 DR. MERARY AYALA ([facility]) Right ankle/foot orthopedic surgery 06/2009 DR. MERARY AYALA ([facility]) Family History Problem Relation Non-contributory No other known family history of NTD Current Medication List Name Sig [place] [facility] [place]Non-Drug; Combo Route) route. OXYBUTYNIN CHLORIDE SR 10 MG 24 HR TAB Take 1 Tab by mouth once daily. OXYBUTYNIN CHLORIDE SR 5 MG 24 HR TAB Take 1 Tab by mouth once daily. Allergies: Allergies Allergen Reactions Amoxicillin Rash Social History: History Social History Narrative Pete lives with his family (parents Yamil and Nicky and younger brother, Jared). Pete 's older brother, Dave, lives with his aunt in [place], [place]. Pete is the middle child. Nathan paul live in [place], [place] where he attends school. Review of Systems: General: negative. Respiratory: negative. Gastrointestinal: constipation and fecal incontinence. Genitourinary: As above. Physical Exam: General: Well developed, well nourished. There were no vitals taken for this visit. Abdomen: Soft, Non-distended, Non-tender. Normal bowel sounds. No palpable masses or stoo l. Liver and Spleen not palpable. No costovertebral angle tenderness. No inguinal hernias . Ext: Rt AFO Results Reviewed: Impression: MMC with NBG Persistent incontinence on CIC Bowel incontinence Encounter Diagnoses Code Name Primary? Qualifier 741.93 Spina bifida without mention of hydrocephalus, lumbar region Comment: Lipomyelomeningocele- repaired , second untethering 02-16 Plan: CATHETER 596.54 Neurogenic bladder, NOS Comment: Inconsistent CIC Plan: CATHETER Plan: Discussed the importance of CIC. He was given a script for catheters to use 5 times a day (150 total). I increased his Ditropan to 10 mg. He will f/u in 6 months with a renal u/s J. Christos Douglas MD, FAAP, FACS talent sourcer Pediatric Urology docume nted in this encounter Plan of Treatment Not on filedocumented as of this encounter Visit Diagnoses + + | Diagnosis | + + | Spina bifida without mention of hydrocephalus, lumbar region | + + | Neurogenic bladder, NOS | + + documented in this encounter
--- OUTSIDE RECORDS SUMMARY | ~2019-10-26 | XMS | Encounter Summary ---
Demographics + + + | Address | [address] | | | [place] [address] | + + + | Home Phone | | + + + | Preferred Language | Unknown | + + + | Marital Status | Single | + + + | Caodaism Affiliation | CHR | + + + | Race | White | + + + | Ethnic Group | Not or | + + + Author + + + | Author | [facility] | + + + | Organization | [facility] | + + + | Address | Unknown | + + + | Phone | Unavailable | + + + Support + + + + + | Name | Relationship | Address | Phone | + + + + + | Sarahi Orozco | ECON | [address] | | | | | [place] | | | | | [address] | | + + + + + Care Team Providers + +------+ + | Care Pin Machine Tender Name | Role | Phone | + +------+ + PCP | Unavailable | + +------+ + Encounter Details +--------+ + + + + | Date | Type | Department | Care Team | Description | +--------+ + + + + | 01/14/ | Office | [facility] | Note, Orthopedics | Progress Note | | 2005 | Visit-Trans | | Clinic | | | | cribed | | [...] as of this encounter Progress Notes Interface, Wood Mechanist In - 06/15/2005 1:30 AM PDT [id number] [facility] Date: 01/14/2005 [facility] The patient is an 8-year-old male, who is approximately 1 month out for soft tissue lesions, pretty extensive of the right foot. He has an overall diagnosis of lipomeningocele and came in with an equinus-type deformity of his right foot. Mother had apparently called the clinic several weeks ago to tell us there was a problem with his cast, but we had a very difficult time getting a hold of her to have them bring Pete in early. They did come for the scheduled followup today, and it appears as if Pete's cast has been very wet, probably for sometime and had a fair bit of mud and other stuff. It looks like overall he has not been watched very carefully to keep this dry. The fortunate and good news is that he does not appear to have any skin infection or wound infection at this point in time. His skin across the bottom of his foot is pretty macerated and it has obviously been wet for sometime. We were able to get him out of his current cast, which had a pretty strong odor with it and get him cleaned up a little bit. The plan was to mold him for AFOs and then put him back into a cast for a couple of weeks but due to the condition of the skin, it would be pretty impossible at this point to do safely. Instead, we are going to leave Pete out of his cast today. Theresa was able to mold him, and he will come back I believe on January 31, 2005, for setting of his AFOs. We did ask mother keep an eye on the skin condition pretty carefully and let us know if there are any problems with any of his wounds. As stated above, they are pretty dry and intact anywhere right now, but due to the fact that it looks like this cast and his foot had been wet for sometime, we want to make sure that he continues to heal well. They seemed to have an understanding of the plan, and we will see them back in a couple of weeks to fit Pete with his AFO. They were carefully instructed to call the clinic with any problems or complications. Queta Lebron P.A.-C. / SALVADOR [id number] / [id number] / [id number] / Electronically signed by Queta Lebron 02-07-2005 01:59:40 PM documented i n this encounter Plan of Treatment Not on filedocumented as of this encounter Visit Diagnoses Not on filedocumented in this encounter"
--- OUTSIDE RECORDS SUMMARY | ~2019-10-26 | XMS | Encounter Summary ---
Demographics + + + | Address | [address] | | | [place] [address] | + + + | Home Phone | | + + + | Preferred Language | Unknown | + + + | Marital Status | Single | + + + | Temple Affiliation | CHR | + + + | Race | White | + + + | Ethnic Group | Not or | + + + Author + + + | Author | [facility] | + + + | Organization | [facility] | + + + | Address | Unknown | + + + | Phone | Unavailable | + + + Support + + + + + | Name | Relationship | Address | Phone | + + + + + | Sarahi Orozco | ECON | [address] | | | | | [place] | | | | | [address] | | + + + + + Care Team Providers + +------+ + | Care University Intern Name | Role | Phone | + +------+ + | No Pcp Per Patient | PCP | Unavailable | + +------+ + Encounter Details +--------+ + + + + | Date | Type | Department | Care Team | Description | +--------+ + + + + | 12/09/ | Ancillary | Registration [address] | | | | 2007 | Registratio | [facility] | | | | | n | [address] Mailcode: [id number] | | | | | | [place], [place] | | | | | | [address] | | | | | | [phone] | | | +--------+ + + + [...]
--- OUTSIDE RECORDS SUMMARY | ~2019-10-26 | XMS | Encounter Summary ---
Demographics + + + | Address | [address] | | | [place] [address] | + + + | Home Phone [...] Author + + + | Author | [facility] | + + + | Organization | [facility] | + + + | Address | Unknown | + + + | Phone | Unavailable | + + + Support + + + + + | Name | Relationship | Address | Phone | + + + + + | Sarahi Orozco | ECON | [address] | | | | | [place] | | | | | [address] | | + + + + + Care Team Providers + +------+ + | Care Client Representative Name | Role | Phone | + +------+ + | No Pcp Per Patient | PCP | Unavailable | + +------+ + Encounter Details +--------+ + + + + | Date | Type | Department | Care Team | Description | +--------+ + + + + | 10/05/ | Ancillary | Registration [address] | | | | 2006 | Registratio | [facility] | | | | | n | Rd Mailcode: [id number] | | | | | | [place], [place] | | | | | | [address] | | | | | | [phone] | | | +--------+ + + + [...]
--- OUTSIDE RECORDS SUMMARY | ~2019-10-26 | XMS | Encounter Summary ---
Demographics + + + | Address | [address] | | | [place] [address] | + + + | Home Phone | | + + + | Preferred Language | Unknown | + + + | Marital Status | Single | + + + | Presybeterian Affiliation | CHR | + + + | Race | White | + + + | Ethnic Group | Not or | + + + Author + + + | Author | [facility] | + + + | Organization | [facility] | + + + | Address | Unknown | + + + | Phone | Unavailable | + + + Support + + + + + | Name | Relationship | Address | Phone | + + + + + | Sarahi Orozco | ECON | [address] | | | | | [place] | | | | | [address] | | + + + + + Care Team Providers + +------+ + | Care Shape Hand Name | Role | Phone | + +------+ + | Dajuan Jerome MD | PCP | | + +------+ + Reason for Visit + + + | Reason | Comments | + + + | Social work | | | consultation | | + + + Encounter Details +--------+ + + + + | Date | Type | Department | Care Team | Description | +--------+ + + + + | 01/10/ | Telephone | [facility] | [place], | Social work | | 2008 | | [address] | Neli, RAILWAY YARD ASSISTANT [address] | consultation | | | | St Mailcode: [facility] | [address] | | | | | [place], [place] | [address] [employer], [place] | | | | | [address] | [address] | | | | | [phone] | | | +--------+ + + + [...]
--- OUTSIDE RECORDS SUMMARY | ~2019-10-26 | XMS | Encounter Summary ---
Demographics + + + | Address | [address] | | | [place] [address] | + + + | Home Phone | | + + + | Preferred Language | Unknown | + + + | Marital Status | Single | + + + | Sikh Affiliation | CHR | + + + [...] [place] | | | | | [address] | | + + + + + Care Team Providers + +------+ + | Care Film Tests Checker Name | Role | Phone | + +------+ + | Dajuan Jerome MD | PCP | | + +------+ + Encounter Details +--------+ + + + + | Date | Type | Department | Care Team | Description | +--------+ + + + + | 02/07/ | Office | General Internal | Note, Outpatient | Progress Note | | 1995 | Visit-Trans | Medicine 5 | Clinic | | | | victor hugo | Ashley Acevedo | | | | | | Mailcode: [id number] | | | | | | Outpatient Clinic | | | | | | [facility], [address] | | | | | | [place], [place] | | | | | | [address] | | | | | | [phone] | | | +--------+ + + + [...] as of this encounter Progress Notes Interface, Charge Histotechnologist In - 02/15/2007 8:49 AM PDT CLINIC DATE: 02/08/96 NEUROSURGERY CLINIC SUBJECTIVE: 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 OBJECTIVE: Examination today is notable for diminished toe flexion on the right as compared to the left, particularly with plantar stimulation. The left Achilles reflex is present, the right I was not so sure about. An MR scan of the spine today confirms the clinical diagnosis of lipomyelomeningocele. Pete's lesion is terminal in type. It is more developed on the right side than the left side, and one of the lumbosacral nerve roots on the right side seems to be involved with the lipoma. IMPRESSION: Lipomyelomeningocele. PLAN: Pete is booked for surgery tomorrow. I counselled his parents today. I showed them the MR scan. We discussed the rationale for surgery. I described the operation, and we discussed the risks of surgery, including anesthetic problems, wound infection, wound dehiscence, nerve injury and . Questions were solicited and answered. No guarantees were extended. Pete's parents have signed a permit. Shiraz Vance Jr., M.D. Hand Crown Pouncer, Neurosurgery P/constantino cc: GEOFF NG MD [address] [place] [address] [place] [phone] documented in this encounter Plan of Treatment Not on filedocumented as of this encounter Visit Diagnoses Not on filedocumented in this encounter"
--- OUTSIDE RECORDS SUMMARY | ~2019-10-26 | XMS | Encounter Summary ---
Demographics + + + | Address | [address] | | | [place] [address] | + + + | Home Phone | | + + + | Preferred Language | Unknown | + + + | Marital Status | Single | + + + | Amish Affiliation | CHR | + + + | Race | White | + + + | Ethnic Group | Not or | + + + Author + + + | Author | [facility] | + + + | Organization | [facility] | + + + | Address | Unknown | + + + | Phone | Unavailable | + + + Support + + + + + | Name | Relationship | Address | Phone | + + + + + | Sarahi Orozco | ECON | [address] | | | | | [place] | | | | | [address] | | + + + + + Care Team Providers + +------+ + | Care Chip Applying Machine Tender Name | Role | Phone | + +------+ + | Dajuan Jerome MD | PCP | | + +------+ + Reason for Visit + + + | Reason | Comments | + + + | Refill Request | | + + + | Erroneous Encounter | | | - Disregard | | + + + Encounter Details +--------+--------+ + + + | Date | Type | Department | Care Team | Description | +--------+--------+ + + + | 05/03/ | Refill | [facility] | Robert Johnson MD | Refill Request; | | 2009 | | Floor [address] | [address] | Erroneous Encounter | | | | St Mailcode: [facility] | [place], [place] | - Disregard | | | | [facility] [place], [place] | [address] | | | | | [address] | [phone] | | | | | [phone] | | | +--------+--------+ + + + Social History + +-------+ [...] Neurogenic bladder, NOS | + + | ERRONEOUS ENCOUNTER - NO DIAGNOSIS | + + documented in this encounter"
--- OUTSIDE RECORDS SUMMARY | ~2019-10-26 | XMS | Encounter Summary ---
Demographics + + + | Address | [address] | | | [place] [address] | + + + | Home Phone | | + + + | Preferred Language | Unknown | + + + | Marital Status | Single | + + + | Evangelical Affiliation | CHR | + + + | Race | White | + + + | Ethnic Group | Not or | + + + Author + + + | Author | [facility] | + + + | Organization | [facility] | + + + | Address | Unknown | + + + | Phone | Unavailable | + + + Support + + + + + | Name | Relationship | Address | Phone | + + + + + | Sarahi Orozco | ECON | [address] | | | | | [place] | | | | | [address] | | + + + + + Care Team Providers + +------+ + | Care Fly Setter Name | Role | Phone | + +------+ + | Dajuan Jerome MD | PCP | | + +------+ + Encounter Details +--------+ + + + + | Date | Type | Department | Care Team | Description | +--------+ + + + + | 04/19/ | Office | [facility] | Report, Outpatient | Progress Note | | 1996 | Visit-Trans | & Rehabilitation | Consultation | | | | cribed | [address] | | | | | | [address] Mailcode: | | | | | | [id number] | | | | | | [place], | | | | | | [place] [address] | | | | | | [phone] | | | +--------+ + + + [...] as of this encounter Progress Notes Interface, Regulator Assembler In - 01/11/2007 2:25 AM PST CLINIC DATE: 04/19/97 CLINIC NAME: [facility] DISCIPLINE: OCCUPATIONAL THERAPY Pete is a 16-month 1-day-old male seen by Occupational Therapy for a baseline assessment of his cognitive development using the Heriberto Scales of Infant Development, second edition, mental scale. Pete is followed in the [facility] for a diagnosis of lumbosacral lipomyelomeningocele. He is followed in [place] in the Early Intervention Program by Nellie Gibson, physical therapist. BEHAVIORAL OBSERVATIONS AND TEST RESULTS: Pete sat at a table with his mother for most test items. He was observed to make very few verbalizations, and his mother reports that he will say "mama" and "daddy" fairly consistently. He was able to build a two-cube tower and place pegs into a pegboard. He demonstrated an interest in coloring, primarily holding a crayon in his hand and scribbling. He was able to place a nome into a formboard. He did not imitate any words and did not point to pictures in a book. Pete is able to sit independently and is able to walk independently. During this assessment, no significant asymmetry was observed in his upper extremities. During this evaluation, he appeared to reach and grasp toys with his right hand more than his left. On the mental scale of the Heriberto Scales of Infant Development, second edition, Pete obtained a raw score of 102 which translates into a mental development index of 98 9 and an age equivalency of 16 months. As previously mentioned, he showed a preference for more manipulative types of activities rather than activities that required looking at pictures and talking. His current cognitive development appears to be within the average range for his age. Pete's fine motor development was found to be at the 16-month level, as tested by the [facility] Developmental Fine Motor Evaluation. He uses a neat pincer grasp in order to pepper picker small pellet-sized objects and was able to place them into a bottle upon command. He grasps blocks using a radiodigital grasp and was able to tower three. He is able to throw a ball from a standing position and maintain his balance. He demonstrates an interest in books and will turn several pages at a time. IMPRESSION: Pete demonstrates fine motor and early cognitive skills that are within normal limits. He should be seen by Occupational Therapy in this clinic according to clinic protocol. If there are any questions or concerns regarding this report, please feel free to contact this therapist at [phone]. John Sierra Occupational Therapist DAMIAN/nicol A nterface, Regulator Assembler In - 01/11/2007 2:25 AM PST CLINIC DATE: 04/19/97 CLINIC: [facility] DISCIPLINE: SOCIAL WORK Pete, 1 year, 4 months of age, comes to clinic today with his mom, Oliverio Saunders, as well as maternal. This is a return visit for Pete. He has been followed here during his young life for his needs related to his repaired lumbosacral lipomeningocele, neurogenic bowel and bladder issues, as well as very mild motor issues. He is ambulating independently and certainly eagerly exploring the clinic environment. His mom serves as a fairly good loom fixer apprentice on his behalf. It is nice that her mom is here for her support. Pete lives in [place] with his mom and his 6-year-old half-brother, Dave. Nicky reports that she is currently in very early . This child she is carrying will be a full sibling to Pete. She reports that she and Pete's father are currently and he is living in [place]. She is unsure what the future holds for their marriage. She is currently home full-time with the kids and looking for work. She receives some financial assistance through [facility] and has [facility] coverage for herself and her children. She reports she also receives some child support. She has applied for SSI on Pete's behalf in the past and, thus far, has been denied but plans to appeal. Managed care for [facility] provides medical coverage and the managed care program is called the [facility]. Dr. Umm aKufman continues as Pete's primary care physician. Pete is being monitored to some degree through the local Early Intervention office. Nicky reports that there was a recent [employer] meeting held, but she was not clear if there was any ongoing service plan. Our reports will go to that agency. There are no social work activities planned, although social work remains available as needed. Neli Robison LCSW Winding Operator Vitor nterface, Regulator Assembler In - 01/11/2007 2:[address] [facility] CLINIC DATE: 04/19/97 CLINIC NAME: [facility] DISCIPLINE: PEDIATRIC UROLOGY Pete is a 89-vacon-uye boy with a lumbosacral lipomyelomeningocele. He has had renal ultrasound and voiding cystourethrograms performed in the past. These demonstrated that he has decent bladder emptying and no vesicoureteral reflux. He had a urinary tract infection in , and because he was uncircumcised this prompted circumcision which was performed in . He is due for a repeat ultrasound but this has not been performed. OBJECTIVE: Pete is ambulating around the room and is quite happy. The abdomen is soft and nontender. There are no palpable masses and the bladder is not palpably distended. GENITOURINARY: He has a normal-appearing circumcised phallus which has healed nicely. His testicles are palpable and present within the scrotum bilaterally. He has good anal sphincter tone and an intact bulbocavernosus reflex. Urinalysis today is biochemically and microscopically normal. IMPRESSION: Lumbosacral lipomyelomeningocele with no evidence of significant bladder involvement. PLAN: Follow up in six months with renal and bladder ultrasound at that time. It is not inconceivable that Pete could develop voiding dysfunction in the future. At this time, however, there is no evidence of significant bladder dysfunction. The patient was seen and examined with Dr. Malik today. Ba Dixon M.D. Resident, Urology Dave Malik M.D. Director Of Personnel, Urology TMW:vitaliy nterface, Regulator Assembler In - 01/11/2007 2:25 AM PST CLINIC DATE: 04/19/97 CLINIC NAME: [facility] DISCIPLINE: PHYSICAL THERAPY Pete attended clinic today accompanied by his mother and his grandmother. He is a boy of 16 months of age who has a diagnosis of lumbosacral myelomeningocele with essentially intact neuromotor functioning. There have been equivocal observations about right-sided weakness, but to date asymmetry has been subtle. He came to clinic today due for a full team reevaluation, but prompted in particular by observation of his Early Intervention physical therapist that he is tending to show more lateral curvature of his spine with convexity to the right. The mother reports that she has also observed this once it was pointed out by Krista Gibson P.T., who is the providing Early Intervention Physical Therapist. She and the grandmother also observe that he tends to walk on the lateral borders of his feet with intoeing. They observe that he appears to have better use with his left upper extremity, but that he spontaneously uses both upper extremities equivalently and does not ever appear to neglect to use his right upper extremity. Pete was awake, alert, spontaneously active and interactive throughout my evaluative session with him. Musculoskeletal exam was significant for bilateral mild metatarsus adductus that bilaterally is correctable to and beyond neutral. His range of motion, alignment and joint integrity elsewhere in both lower extremities and both upper extremities are intact and appropriate for age. Most significantly, in his spine he displays a straight spine clinically with full excursions for spinal flexion, extension, lateral curvature left and right, and rotation left and right. There is no evidence of structural asymmetry. He does not display any paravertebral prominence or rib humping anteriorly or posteriorly. I did observe him displaying a tendency to trunk shortening on the left side, but this is not obligatory and both spontaneously and with facilitation he displays active trunk shortening to the right. He does display a slight tendency to plantar flex his toes more readily and in more sustained fashion on the right, but active dorsiflexion is readily available spontaneously and with facilitation. His mother and his grandmother report that he does display better organized responses with the left upper extremity than the right upper extremity, although I observed equivalent spontaneous use with each upper extremity today. I do refer the reader to Occupational Therapy report from the same date for further details of upper extremity organized function and symmetry in particular. In the course of this evaluation, there were no clinical signs indicative of motor involvement revealing spinal cord tethering. That is, he did not display any long track signs, exaggeration of deep tendon reflexes, or exaggerated resting muscle tone, and he continues to display essentially normal movement patterns and no verifiable focal strength deficits affecting either lower extremity. Pete is walking independently, and the family reports that he began doing so at 15 months of age. He is a fluent, independent and safe walker. He is also able to squat and rise and move through the gross motor developmental sequence from recumbency up through standing and walking. He also displays spontaneous stair walking, as well as backwards crawling. I also incidentally observed him participating in dressing and undressing, and in imitating a variety of play behaviors. Pete is continuing to display only mild asymmetry in the use of his extremities, none of which appears to be obligatory. It is not clear whether, or to what extent, this represents threat to him structurally, but I discussed with the mother and grandmother my findings and the need to monitor his status carefully and to raise questions with the [facility] so that they can be addressed thoroughly. I will plan to reevaluate Pete at his next scheduled full team clinic appointment, and will address his functional neuromotor, as well as musculoskeletal status with continued close attention to the subtle asymmetry that he has been showing. He appears to be well-served with regard to his developmental and physical therapy needs by his inclusion on the Early Intervention program. I will be available to address questions related to this report at . Raul Zamora Physical Therapist WF:vitaliy nterface, Regulator Assembler In - 01/11/2007 2:25 AM PST CLINIC DATE: 04/19/97 CLINIC NAME: [facility] DISCIPLINE: PEDIATRIC NEUROSURGERY Pete has lipomyelomeningocele. He is now 16 months of age. He has been walking for at least a month. The mother has no particular concerns for me today. EXAMINATION: Pete looks well. The left foot is slightly smaller than the right foot. The left lower limb is about 15 mm shorter than the right. The leg circumference is equal. Gross and fine movements seem normal. Deep tendon reflexes are present in the lower limbs. Pete's gait looks fairly normal to me. IMPRESSION: Lipomyelomeningocele. Pete seems stable from a neurosurgical standpoint. PLAN: Routine follow up through this clinic. Shiraz Vance Jr. M.D.,F.A.A.P. Director Of Personnel, Neurosurgery and Pediatrics CULLENP:vitaliy nterface, Regulator Assembler In - 01/11/2007 2:25 AM PST CLINIC DATE: 04/19/97 CLINIC NAME: [facility] DISCIPLINE: ORTHOPEDICS Pete returns for long-term follow-up care on his lipomeningocele. Parents have not particularly noticed any major problems. There has been some question about his spine recently. PHYSICAL EXAMINATION: Physical exam shows that he is now walking fairly normally. He is motoring about the room without any difficulty today. He is able to heel and toe walk without any difficulties. His spine is straight but flexible. IMPRESSION: I think Pete is generally getting along well. I am encouraged that he is gaining more and more motor ability to get around. I do not have any concern about his spine at present. We will plan on recheck at the next full evaluation. Gilbert Romero M.D. Speech Language Pathology Assistant, Orthopedics and Rehabilitation ANAMARIA:julius nterface, Regulator Assembler In - 01/11/2007 2:25 AM PST CLINIC DATE: 04/19/97 CLINIC NAME: [facility] DISCIPLINE: PEDIATRIC AUDIOLOGY GENERAL COMMENTS: This [id number] infant is seen today through [facility]. A request was made for auditory assessment. His mother reports that he has been pulling at his ears recently. In general, however, she believes Pete to be relatively responsive to auditory stimuli; albeit, occasionally she has to raise her voice to get his attention. CONDITION OF HEARING: Pete was tested initially using informal pediatric screening methods. For narrow band high frequency signals centered between 3,000 and 6,000 hertz, his responses at around 30 decibels SPL were consistent across several trials with good sound localization on the horizontal plane. More formally using visually reinforced audiometrics, he was evaluated with the assistance of his mother and grandmother. He conditioned well. For speech stimuli, his responses were 15 decibels HL with good sound source localization. Finally, for narrow band of energy centered at 6,000 hertz, he responded well down to a level of 30 decibels HL, again with good localization. Middle ears were assessed using both otoscopy and tympanometry. Under otoscopic exam, there was considerable waxy debris in the canals. Canals are patent. Eardrums were observed. They have normal color and landmarks with no evidence of drainage or infection. Tympanometrics confirm normal middle ear pressure bilaterally with intact eardrums and hence good eustachian tube function. Finally, the ipsilateral reflex was elicited bilaterally at 2,000 and 4,000 hertz at a presentation level of 90 decibels HL. DIAGNOSTIC IMPRESSION: Normal hearing in both ears based upon minimum response levels and localization behaviors; normal middle ear function. COMMENTS AND RECOMMENDATIONS: It appears that Pete presently has hearing levels quite adequate for communicative and cognitive needs. These findings were shared both with the child's family and with the clinic team. Presently there are no specific ear or hearing related concerns and no specific recommendations for follow-up. We can provide future audiologically related services on a request basis. Sami Francois, Ph.D. Law Firm Consultant ROP:julius documented in this encounter Plan of Treatment Not on filedocumented as of this encounter Visit Diagnoses Not on filedocumented in this encounter
--- OUTSIDE RECORDS SUMMARY | ~2019-10-26 | XMS | Encounter Summary ---
Demographics + + + | Address | [address] | | | [place] [address] | + + + | Home Phone | | + + + | Preferred Language | Unknown | + + + | Marital Status | Single | + + + | Yazdanism Affiliation | CHR | + + + | Race | White | + + + | Ethnic Group | Not or | + + + Author + + + | Organization | Unknown | + + + | Address | Unknown | + + + | Phone | Unavailable | + + + Support + + + + + | Name | Relationship | Address | Phone | + + + + + | Sarahi Orozco | ECON | [address] | | | | | [place] | | | | | [address] | | + + + + + Care Team Providers + +------+ + | Care Manager Electronic Name | Role | Phone | + +------+ + PCP | Unavailable | + +------+ + Encounter Details +--------+ + + + + | Date | Type | Department | Care Team | Description | +--------+ + + + + | 02/20/ | Procedure - | | Record, Operation | Operative Report | | 2003 | | | | | | | Transcribed | | | | +--------+ + + [...] + + | OPERATION RECORD | | 02/20/2003 | | Results for this | | | | | | procedure are in the | | | | | | results section. | + +--------+ + + + documented in this encounter Results OPERATION RECORD (02/20/2003) + + | Transcriptions | + + | Interface, Property Management Assistant In - 05/30/2006 3:07 AM PDT | | [facility] [address] | | [place], [place] [address] | | [facility] RECORDMed Rec No.: | | [id number] Date: 02/20/2003Name: Pete Orozco SURGEON: | | Soha Nettles M.D.TERRITORY SALES REPRESENTATIVE: Luis Klein | | MorrisPREOPERATIVE DIAGNOSIS:Tethered cord and lipomyelomeningocele.POSTOPERATIVE | | DIAGNOSIS:Tethered cord and lipomyelomeningocele.OPERATIONS PERFORMED:1. Complex cord | | untethering.2. Microdissection under microscope.3. 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 Hepresents with rest of right leg weakness. He is therefore taken back | | for aredo complex spinal cord untethering.PROCEDURE:The patient was properly identified | | and brought to the operating room. Heunderwent general endotracheal anesthesia without | | difficulty. He wasturned prone on jelly rolls. EMG and SSEP electrodes were attached | | andmonitored by Dr. Lazo of neurology.The patient's back was prepped and draped in a | | sterile fashion. Anincision was made midline. Dissection was taken down with | | monopolarelectrocautery. At the brazilin of the incision, the most inferior | | spinousprocess and lamina were palpated. Monopolar subperiosteal dissection wastaken | | down along the spinous process and lamina. The underlying ligamentwas intact and was | | elevated and removed with curved curettes and twoKerrison punch. The underlying dura | | was intact and appeared normal, butmore distally filleted out into a large homogenous | | scarred region.Next, the microscope was brought into the field and microdissection | | began.The dura was opened with a 15 blade. A Bancroft was passed over the dura.The dural | | opening was extended inferiorly. It ran to a thick region ofarachnoid granulation and | | scar. Using a Rhoton 6 and 8, as well asmicroscissors, the arachnoid adhesions were | | removed at the most serratialend. This revealed a significant amount of scarring of the | | dorsal andventral nerve roots.The left dorsal roots were somewhat more superior than | | the patient's rightdorsal roots. Using monopolar electrical stimulation, the ventral | | rootswere identified with motor response, both by EMG and by movement of theleg. The | | dorsal roots were quite scarred into the lipomyelomeningocele.Next, very careful | | dissection was conducted on both sides in an attempt topreserve as much of the dorsal | | roots as possible. These were severelyadhered into the scar. Dissection was conducted | | with microscissors, Mayos,and 6 and 8 Rhotons.Hemostasis was obtained with bipolar | | electrocautery. Nearly all of thedorsal roots were preserved. We believe that a left | | and right upper lumbardorsal root was partially transected in the process of dissection. | | All ofthe ventral roots appeared intact with the arachnoid adhesions and theventral | | roots were released.After an extensive amount of dissection we reached the caudal | | portion ofthe conus. We were able to circumscribe the scarred conus. The | | underlyingsacral roots were easily identified as they exited the foramina. | | Monopolarstimulation was used to identify the sphincter roots. These werestimulated | | bilaterally and appeared intact. Once this dissection wascomplete, the area was | | irrigated with saline and hemostasis was obtainedwith bipolar.There was a nice membrane | | of leonora on the inferior and lateral surface of thelipomyelomeningocele. More dorsally | | there was much scarring. A 6-0 suturewas used to reapproximate the leonora to reduce the | | chance of scarring over thescar bed. Next, a Duragen piece was cut to the size of the | | dural opening.The dura was closed with 5-0 suture. There was excellent | | watertightclosure. Fibrin glue was then injected over the dura. The lumbar fasciawas | | closed with 0 Vicryl. The skin was closed in inverted interrupted 3-0Vicryl in a | | running 5-0 Monocryl. Dressing was applied after the skin wasglued. The patient was | | extubated and taken to the Postanesthesia Care Unitin good condition. SSEPs were done | | at the end of the case, which werereportedly unchanged.ATTENDING SURGEON | | ATTESTATION:Pursuant to Federal Medicare requirements, I certify that Dr. Nettles | | waspresent for the entire case.Luis Klein M.D. Soha Nettles, | | MorrisNEREIDA:[id number]: 02/20/2003T: 02/21/[id number] | | | |Next, the microscope was brought into the field and microdissection began. | |The dura was opened with a 15 blade. A Bancroft was passed over the dura. | |The dural opening was extended inferiorly. It ran to a thick region of | |arachnoid granulation and scar. Using a Rhoton 6 and 8, as well as | |microscissors, the arachnoid adhesions were removed at the most serratial | |end. This revealed a significant amount of scarring of the dorsal and | |ventral nerve roots. | | | |The left dorsal roots were somewhat more superior than the patient's right | |dorsal roots. Using monopolar electrical stimulation, the ventral roots | |were identified with motor response, both by EMG and by movement of the | |leg. The dorsal roots were quite scarred into the lipomyelomeningocele. | |Next, very careful dissection was conducted on both sides in an attempt to | |preserve as much of the dorsal roots as possible. These were severely | |adhered into the scar. Dissection was conducted with microscissors, Josh, | |and 6 and 8 Rhotons. | | | |Hemostasis was obtained with bipolar electrocautery. Nearly all of the | |dorsal roots were preserved. We believe that a left and right upper lumbar | |dorsal root was partially transected in the process of dissection. All of | |the ventral roots appeared intact with the arachnoid adhesions and the | |ventral roots were released. | | | |After an extensive amount of dissection we reached the caudal portion of | |the conus. We were able to circumscribe the scarred conus. The underlying | |sacral roots were easily identified as they exited the foramina. Monopolar | |stimulation was used to identify the sphincter roots. These were | |stimulated bilaterally and appeared intact. Once this dissection was | |complete, the area was irrigated with saline and hemostasis was obtained | |with bipolar. | | | |There was a nice membrane of leonora on the inferior and lateral surface of the | |lipomyelomeningocele. More dorsally there was much scarring. A 6-0 suture | |was used to reapproximate the leonora to reduce the chance of scarring over the | |scar bed. Next, a Duragen piece was cut to the size of the dural opening. | |The dura was closed with 5-0 suture. There was excellent watertight | |closure. Fibrin glue was then injected over the dura. The lumbar fascia | |was closed with 0 Vicryl. The skin was closed in inverted interrupted 3-0 | |Vicryl in a running 5-0 Monocryl. Dressing was applied after the skin was | |glued. The patient was extubated and taken to the Postanesthesia Care Unit | |in good condition. SSEPs were done at the end of the case, which were | |reportedly unchanged. | | | |ATTENDING SURGEON ATTESTATION: | |Pursuant to Federal Medicare requirements, I certify that Dr. Nettles was | |present for the entire case. | | | | | | | |Luis Klein M.D. Soha Nettles M.D. | | | |NEREIDA:[id number] | | | | | |[phone] | + + documented in this encounter Visit Diagnoses Not on filedocumented in this encounter"
--- OUTSIDE RECORDS SUMMARY | ~2019-10-26 | XMS | Encounter Summary ---
Demographics + + + | Address | [address] | | | [place] [address] | + + + | Home Phone | | + + + | Preferred Language | Unknown | + + + | Marital Status | Unknown | + + + | Sikhism Affiliation | Unknown | + + + | Race | Unknown | + + + | Ethnic Group | Unknown | + + + Author + + + | Author | [facility] | | | and [place] | + + + | Organization | [facility] | | | and [place] | + + + | Address | Unknown | + + + | Phone | Unavailable | + + + Support + + +---------+ + | Name | Relationship | Address | Phone | + + +---------+ + | Andressa Cosme | ECON | Unknown | | + + +---------+ + | Yamil Orozco | ECON | Unknown | | + + +---------+ + Care Team Providers + +------+ + | Care Electrical And Instrument Technician Name | Role | Phone | + +------+ + PCP | Unavailable | + +------+ + Encounter Details +--------+ + + + + | Date | Type | Department | Care Team | Description | +--------+ + + + + | 12/19/ | Hospital | [facility] | Earl Chaney MD | | | 2019 - | Encounter | [facility] | [address] | | | | | CARE FLOOR [address] | [place] [address] | | | 12/20/ | | [address] | [phone] | | | 2018 | | [place], [place] | | | | | | [address] | | | | | | [phone] | | | +--------+ + + + + Social History + +-------+ +--------+------+ | Tobacco Use | Types | Packs/Day | Years | Date | | | | | Used | | + +-------+ +--------+------+ | Current Every Day | | 0.5 | | | | Smoker | | [...] + + documented as of this encounter Last Filed Vital Signs + + + + + | Vital Sign | Reading | Time Taken | Comments | + + + + + | Blood Pressure | 149/70 | 12/20/2018 11:28 AM | | | | | PST | | + + + + + | Pulse | 92 | 12/20/2018 11:28 AM | | | | | PST | | + + + + + | Temperature | 36.7 C (98 F) | 12/20/2018 11:28 AM | | | | | PST | | + + + + + | Respiratory Rate | 16 | 12/20/2018 11:28 AM | | | | | PST | | + + + + + | Oxygen Saturation | - | - | | + + + + + | Inhaled Oxygen | - | - | | | Concentration | | | | + + + + + | Weight | 66.1 kg (145 lb 12.8 | 12/20/2018 11:28 AM | | | | oz) | PST | | + + + + + | Height | 172.7 cm (5' 8") | 12/20/2018 11:28 AM | | | | | PST | | + + + + + | Body Mass Index | 22.17 | 12/20/2018 11:28 AM | | | | | PST | | + + + + + documented in this encounter Discharge Summaries Ijeoma Gallardo MD - 12/20/2018 11:16 AM PSTFormatting of this note might be different f rom the original. Discharge Summaries by Ijeoma Gallardo MD at 12/20/18 1116 Author: Ijeoma Gallardo MD Service: Hospitalist Author Type: Physician Filed: 12/20/181118 Date of Service: 12/20/181115 Status: Signed Merchandise Collector: Ijeoma Gallardo MD (Physician) [facility] Service: Hospitalist Physician Discharge Summary Pt: Pete Orozco AGE/SEX: 23 y.o. male ROOM: [address] [place] [address] PCP: Brooke Dickson : 1995 Admit date: 2018 Discharge date and time: 12/20/2018 11:17 AM Admitting Physician: Earl Chaney MD Discharge Physician: Ijeoma Gallardo MD Consults: Dr. Carvajal Primary Discharge Diagnoses: Principal Problem: Dental abscess Active Problems: Sepsis (HCC) Resolved Problems: * No resolved hospital problems. * Secondary Discharge Diagnoses: NIll Discharged Condition: stable Significant Diagnostic Studies/Procedures: Procedure(s) (LRB): INCISION & DRAINAGE (Right) DENTAL - EXTRACTIONS - TEETH (Bilateral) Procedure(s): Removal teeth #'s 1(si), 6(si), 8(si), 15 (sx), 16(si), 17(si), 18(si), 19 r oot tips (sx), incision and drainage of right canine space abscess HPI and Hospital Course: 23 y.o. male with no significant past medial history who presented with right facial pain f or [address] finding consistent with facial cellulitis and dental abscess with sepsis. H e was started on clindamycin.he is SP Removal teeth #'s 1(si), 6(si), 8(si), 15 (sx), 16(si), 17(si), 18(si), 19 root tips (sx), incision and drainage of right canine space abscess. On antibiotics and will follow up with oral surgery.I DEON Carvajal on the day of dischar ge. Follow Up Labs/Imaging and Monitoring: PCP Discharge Vitals: Vitals: 12/19/18 2326 12/20/18 0340 12/20/18 0533 12/20/18 0917 BP: 99/52 108/59 123/69 BP Location: Left upper arm Left upper arm Left upper arm Pulse: 68 91 92 Resp: 16 16 16 Temp: 96.9 F (36.1 C) 96.8 F (36 C) 98 F (36.7 C) TempSrc: Axillary Axillary Axillary SpO2: 97% 96% 98% Weight: 66.1 kg (145 lb 12.8 oz) Height: Discharge Exam: Constitutional: Alert and oriented to person, place, and time. Slight right-sided facial sw elling Cardiovascular: Normal rate, regular rhythm, normal heart sounds with S1 and S2 and intact distal pulses. Exam reveals no gallop and no friction rub. No murmur heard. Pulmonary/Chest: Effort normal and breath sounds normal. No stridor. No respiratory distres s. no wheezes. no rales. exhibits no tenderness. Abdominal: Soft. Bowel sounds are normal. exhibits no distension and no mass. There is no t enderness. There is no rebound and no guarding. Musculoskeletal: Normal range of motion.exhibits no tenderness. exhibits no edema. Neurological: Alert and oriented to person, place, and time. Skin: Skin is warm and dry. No rash noted. No erythema. No pallor. Psychiatric: Has a normal mood and affect. Behavior is normal. Judgment normal. Not suicida l LABS: Recent Labs Lab 12/20/18 0425 12/19/18 0200 WBC 13.27* 14.17* HGB 12.0* 13.3 HCT 35.4* 39.1 PLT 203 208 NEUTOPHILPCT 75.94 75.16 MONOPCT 7.47 9.01 Recent Labs Lab 12/20/18 0425 12/19/18 0200 NA 140 143 K 4.1 4.0 CL 107 109 CO2 25 26 BUN 11 11 CREATININE 0.5* 0.72 PROT -- 6.6 BILITOT -- 0.6 ALT -- 14 AST -- 14 Recent Labs Lab 12/20/18 0425 12/19/18 0200 MG 2.0 1.7 Results Procedure Component Value Units Date/Time Fungus culture [[id number]] Collected: 12/19/18 133 Specimen: Body Fluid from Body Fluid Updated: 12/19/18 1743 Anaerobic Culture W/Gram Stain [[id number]] Collected: 12/19/18 133 Specimen: Body Fluid from Body Fluid Updated: 12/19/18 140 Specimen Description OTHER GRAM STAIN 1+ GRAM STAIN WBC'S SEEN CULTURE PENDING Disposition: Home Patient Instructions: Medication List START taking these medications clindamycin 300 MG capsule QTY: 20 capsule Refills: 0 Commonly known as: CLEOCIN Take 1 capsule by mouth every 6 (six) hours for 5 days. oxyCODONE-acetaminophen 5-325 MG per tablet QTY: 30 tablet Refills: 0 Commonly known as: PERCOCET Take 1 tablet by mouth every 6 (six) hours as needed for Pain. Where to Get Your Medications You can get these medications from any pharmacy Bring a paper prescription for each of these medications clindamycin 300 MG capsule oxyCODONE-acetaminophen 5-325 MG per tablet Activity: activity as tolerated Diet: soft diet Wound Care: as directed Discharge medications reconciliation was completed by myself. I carefully reviewed all the medications with the patient. All the dosages was confirmed with the patient to the best o f patient's knowledge. I resumed most of his home medication after talking to the patient. I informed the patien t that, If you are not taking any of those medicines or if you think that dose is not righ t please talk to the primary care doctor for adjustment of doses and medications. Please jimenez e all the medication to your PCP and show him what medication you are taking so that he can adjust your medications if needed. Follow-Up: [facility] [address] [address] In 1 week Cory Tamayo DDS [address] [facility] [address] In 1 week Discharge took more than 35 minutes, to include final examination, discussion of admission, and preparation of prescriptions, instructions for ongoing care, follow up and dictation of summary. Signed: IJEOMA GALLARDO MD 12/20/2018 11:17 AM Dictation software, Certain, used which may contain error for similar sounding words even af ter review. Personal communication requested for any clarification. Portions of this chart may have been copied from previous notes for continuity of care purp ose documented in this encounter Medications at Time of Discharge + + + +---------+ + + | Medication | Sig | Dispensed | Refills | Start | End Date | | | | | | Date | | + + + +---------+ + + | | Take 1 tablet by | 30 | 0 | 12/20/19 | | | oxyCODONE-acetaminop | mouth every 6 (six) | tablet | | 19 | | | hen (PERCOCET) 5-325 | hours as needed for | | | | | | mg per tablet | Pain. | | | | | + + + +---------+ + + documented as of this encounter Progress Notes Conversion Transaction, Provider Unknown - 12/20/2018 11:50 AM PSTFormatting of this note m ight be different from the original. Case Management by Porsha Barker RN at 12/20/18 1150 Author: Porsha Barker RN Service: (none) Author Type: Registered Nurse Filed: 12/20/18 1201 Date of Service: 12/20/181149 Status: Signed Merchandise Collector: Porsha Barker RN (Registered Nurse) Pt has no CM needs at time of discharge. Disposition: home Transportation: family to transport via private vehicle Patient and family in agreement with discharge plan Medicare important message (Given or N/A): N/A Porsha Barker RN onver diaz Transaction, Provider Unknown - 12/20/2018 11:49 AM PST Nurse Progress Note by Janine Kolb RN at 12/20/18 114 Author: Janine Kolb RN Service: (none) Author Type: Registered Nurse Filed: 12/20/18 114 Date of Service: 12/20/181148 Status: Signed Merchandise Collector: Janine Kolb RN (Registered Nurse) Reviewed discharge information with pt. Iv was discontinued. Paper prescriptions given. No questions or concerns voiced at this time. Significant other will be driving pt home. onver diaz Transaction, Provider Unknown - 12/20/2018 7:11 AM PST Nurse Progress Note by Abdulkadir Tolentino RN at 12/20/18710 Author: Abdulkadir Tolentino RN Service: (none) Author Type: Registered Nurse Filed: 12/20/18713 Date of Service: 12/20/18710 Status: Signed Merchandise Collector: Abdulkadir Tolentino RN (Registered Nurse) End of shift note VSS. Hourly rounding remained uneventful thru the day. No other acute changes from previous assessment. 24 hour chart check complete onver diaz Transaction, Provider Unknown - 2018 5:42 PM PST Nurse Progress Note by Pablo Ta at 12/19/181741 Author: Pablo Ta Service: (none) Author Type: Law Enforcement Director Filed: 12/19/181744 Date of Service: 12/19/181741 Status: Signed Merchandise Collector: Pablo Ta (Law Enforcement Director) Surgical I&D this afternoon with KENY BOOTH. Post op vital signs stable. Pain controlled wit h IV Toradol and Dilaudid. IV abx continued. No current needs. Will continue to monitor. End of shift review complete. Pablo Ta RN onver diaz Transaction, Provider Unknown - 2018 8:02 AM PST Case Management by ALFRED Guadalupe at 12/19/18801 Author: ALFRED Guadalupe Service: (none) Author Type: Acrylic Fabricator Filed: 12/19/18802 Date of Service: 12/19/18801 Status: Signed Merchandise Collector: ALFRED Guadalupe (Acrylic Fabricator) CM met with pt for discharge planning. Pt is 23 years old and lives with his significant ot her in a 1-level home. Pt is independent with his mobility. Pt denied any difficulty obtaini ng his medications and had no resource concerns at this time. CM will continue to follow as needed. 12/19/18800 Discharge Planning Evaluation Admitting Diagnosis Facial Cellulitis Readmission No Living Arrangements Spouse/significant other Support Systems Spouse/significant other Type of Residence Private residence Bathrooms on 1st Floor 1-Full Independent with ADL's Yes Independent with Mobility Yes Home Care Services No Caregiver after Discharge Yes Caregiver Name Andressa Cosme Relationship to Patient significant other Phone number [phone] Mental Status Oriented Anticipated Discharge Plan Post Acute Care Needs None at this time Resources Financial concerns No Transportation issues No Patient/Family concerns No Prescription Plan Yes Anticipated Disposition Facility Type Home Medicare Important Message (ESTUARDO) Not applicable Met with: Patient and discussed discharge planning, Pt is a 23 y.o., male Patient's PCP is: Brooke Dickson Patient's insurance: Medicaid Coverage concerns: None Medication coverage/concerns: None Community resources utilized / needed: None Assistance in transportation: Not needed. Identification of any specific education / training: None Barriers to Discharge / Alternative housing needed: None Anticipated DCP: Home onver diaz Transaction, Provider Unknown - 2018 5:20 AM PST Nurse Progress Note by Abdulkadir Tolentino RN at 12/19/18 70 Author: Abdulkadir Tolentino RN Service: (none) Author Type: Registered Nurse Filed: 1826 Date of Service: 12/19/18519 Status: Signed Merchandise Collector: Abdulkadir Tolentino RN (Registered Nurse) End of shift note Pt admitted in AM from [facility]. S. 24 hour chart check complete onver diaz Transaction, Provider Unknown - 2018 4:31 AM PST Pharmacy Note by Julianna Faustin RPH at 12/19/18430 Author: Julianna Faustin RPH Service: Pharmacy Author Type: Pharmacist Filed: 12/19/18430 Date of Service: 12/19/18430 Status: Signed Merchandise Collector: Julianna Faustin RPH (Pharmacist) Clinical Pharmacy Note: Renal Monitoring Height: 172.7 cm Weight: 65.8 kg Serum creatinine: 0.72 mg/dL 12/19/18199 Estimated creatinine clearance: 148.5 mL/min Pharmacy dosing for renal function per Dr. Chaney. Currently there are no medications needing to be adjusted. Pharmacy will continue to monito r for changes in medication orders and in renal function and adjust accordingly. Flor LORA 2018 4:31 AM docume nted in this encounter Plan of Treatment Not on filedocumented as of this encounter Procedures + +--------+ + + + | Procedure Name | Priori | Date/Time | Associated Diagnosis | Comments | | | ty | | | | + +--------+ + + + | EXTERNAL LAB: CBC | Routin | 12/20/2018 | | Results for this | | | e | 4:25 AM | | procedure are in the | | | | PST | | results section. | + +--------+ + + + | MAGNESIUM | Routin | 12/20/2018 | | Results for this | | | e | 4:25 AM | | procedure are in the | | | | PST | | results section. | + +--------+ + + + | BASIC METABOLIC | Routin | 12/20/2018 | | Results for this | | PANEL | e | 4:25 AM | | procedure are in the | | | | PST | | results section. | + +--------+ + + + | CULTURE, FUNGUS | Timed | 2018 | | Results for this | | | | 1:33 PM | | procedure are in the | | | | PST | | results section. | + +--------+ + + + | CULTURE, ANAEROBIC | Timed | 2018 | | Results for this | | | | 1:33 PM | | procedure are in the | | | | PST | | results section. | + +--------+ + + + | EXTERNAL LAB: CBC | Routin | 2018 | | Results for this | | | e | 2:00 AM | | procedure are in the | | | | PST | | results section. | + +--------+ + + + | PHOSPHORUS | Routin | 2018 | | Results for this | | | e | 2:00 AM | | procedure are in the | | | | PST | | results section. | + +--------+ + + + | MAGNESIUM | Routin | 2018 | | Results for this | | | e | 2:00 AM | | procedure are in the | | | | PST | | results section. | + +--------+ + + + | LACTIC ACID | Routin | 2018 | | Results for this | | | e | 2:00 AM | | procedure are in the | | | | PST | | results section. | + +--------+ + + + | COMPREHENSIVE | Routin | 2018 | | Results for this | | METABOLIC PANEL | e | 2:00 AM | | procedure are in the | | | | PST | | results section. | + +--------+ + + + documented in this encounter Results External Lab: CBC (12/20/2018 4:25 AM PST) + + + + + + | Component | Value | Ref Range | Performed | Pathologist | | | | | At | Signature | + + + + + + | WBC | 13.27 (H) | 3.80 - 11.00 | EXTERNAL | | | | | K/uL | LAB | | + + + + + + | RED CELL | 3.89 (L) | 4.20 - 5.70 | EXTERNAL | | | COUNT | | M/uL | LAB | | + + + + + + | Hgb | 12.0 (L) | 13.2 - 17.0 | EXTERNAL | | | | | g/dL | LAB | | + + + + + + | Hematocrit, | 35.4 (L) | 39.0 - 50.0 % | EXTERNAL | | | POC | | | LAB | | + + + + + + | MCV | 90.9 | 80.0 - 100.0 fl | EXTERNAL | | | | | | LAB | | + + + + + + | MCH | 30.8 | 27.0 - 34.0 pg | EXTERNAL | | | | | | LAB | | + + + + + + | MCHC | 34.0 | 32.0 - 35.5 | EXTERNAL | | | | | g/dL | LAB | | + + + + + + | RDW-CV | 38.1 | 37 - 53 fl | EXTERNAL | | | | | | LAB | | + + + + + + | Platelet | 203 | 150 - 400 K/uL | EXTERNAL | | | Count | | | LAB | | | Plasma | | | | | + + + + + + | MPV | 10.0 | fl | EXTERNAL | | | | | | LAB | | + + + + + + | Differentia | AUTOMATED | | EXTERNAL | | | l Type | | | LAB | | + + + + + + | % Segmented | 75.94 | % | EXTERNAL | | | | | | LAB | | | Neutrophils | | | | | + + + + + + | % | 16.07 | % | EXTERNAL | | | Lymphocytes | | | LAB | | + + + + + + | % Monocytes | 7.47 | % | EXTERNAL | | | | | | LAB | | + + + + + + | % | 0.09 | % | EXTERNAL | | | Eosinophils | | | LAB | | + + + + + + | % Basophils | 0.43 | % | EXTERNAL | | | | | | LAB | | + + + + + + | Absolute | 10.07 (H) | 1.90 - 7.40 | EXTERNAL | | | Segmented | | K/uL | LAB | | | Neutrophils | | | | | + + + + + + | Absolute | 2.13 | 1.00 - 3.90 | EXTERNAL | | | Lymphocytes | | K/uL | LAB | | + + + + + + | Absolute | 0.99 (H) | 0.00 - 0.80 | EXTERNAL | | | Monocytes | | K/uL | LAB | | + + + + + + | Absolute | 0.01 | 0.00 - 0.50 | EXTERNAL | | | Eosinophils | | K/uL | LAB | | + + + + + + | Absolute | 0.06Comment: Testing | 0.00 - 0.10 | EXTERNAL | | | Basophils | performed at [facility], [address] | LAB | | | | [address], | | | | | | [place] [address] | | | | + + + + + + + + | Specimen | + + | Blood specimen | | (specimen) | + + + +---------+ + + | Performing | Address | City/State/Zipcode | Phone Number | | Organization | | | | + +---------+ + + | EXTERNAL LAB | | | | + +---------+ + + Magnesium (12/20/2018 4:25 AM PST) + + + + + + | Component | Value | Ref Range | Performed | Pathologist | | | | | At | Signature | + + + + + + | Magnesium | 2.0Comment: Testing | 1.7 - 2.4 mg/dL | EXTERNAL | | | | performed at [facility], [address] | | LAB | | | | [address], | | | | | | [place] [address] | | | | + + + + + + + + | Specimen | + + | Blood specimen | | (specimen) | + + + +---------+ + + | Performing | Address | City/State/Zipcode | Phone Number | | Organization | | | | + +---------+ + + | EXTERNAL LAB | | | | + +---------+ + + Basic Metabolic Panel (12/20/2018 4:25 AM PST) + + + + + + | Component | Value | Ref Range | Performed | Pathologist | | | | | At | Signature | + + + + + + | Na | 140 | 135 - 145 | EXTERNAL | | | | | mmol/L | LAB | | + + + + + + | K | 4.1 | 3.5 - 4.9 | EXTERNAL | | | | | mmol/L | LAB | | + + + + + + | Cl | 107 | 99 - 109 mmol/L | EXTERNAL | | | | | | LAB | | + + + + + + | CO2 | 25 | 23 - 32 mmol/L | EXTERNAL | | | | | | LAB | | + + + + + + | Anion Gap | 12 | 5 - 20 mmol/L | EXTERNAL | | | | | | LAB | | + + + + + + | Glucose, | 93 | 65 - 99 mg/dL | EXTERNAL | | | Fasting | | | LAB | | + + + + + + | BUN | 11 | 8 - 25 mg/dL | EXTERNAL | | | | | | LAB | | + + + + + + | Creatinine | 0.5 (L) | 0.70 - 1.30 | EXTERNAL | | | | | mg/dL | LAB | | + + + + + + | BUN/Creatin | 22 | | EXTERNAL | | | ine Ratio | | | LAB | | + + + + + + | Calcium | 8.3 (L) | 8.5 - 10.5 | EXTERNAL | | | | | mg/dL | LAB | | + + + + + + | Estimated | >60Comment: GFR <60: | mL/min/1.73m2 | EXTERNAL | | | GFR | CHRONIC KIDNEY DISEASE, | | LAB | | | | IF FOUND OVER A 3 MONTH | | | | | | PERIOD.GFR <15: KIDNEY | | | | | | FAILURE.FOR | | | | | | AMERICANS, MULTIPLY THE | | | | | | CALCULATED GFR BY | | | | | | 1.210.This eGFR is | | | | | | calculated using the | | | | | | MDRD IDMS traceable | | | | | | equation.Testing | | | | | | performed at [facility], [address] | | | | | | [facility], | | | | | | [place] [address] | | | | + + + + + + + + | Specimen | + + | Blood specimen | | (specimen) | + + + +---------+ + + | Performing | Address | City/State/Zipcode | Phone Number | | Organization | | | | + +---------+ + + | EXTERNAL LAB | | | | + +---------+ + + Culture, Fungus (2018 1:33 PM PST) + + | Specimen | + + | Body fluid sample | | (specimen) | + + + + + | Narrative | Performed At | + + + | Specimen Description OTHER CULTURE | EXTERNAL LAB | | NO FUNGUS ISOLATED | | + + + + +---------+ + + | Performing | Address | City/State/Zipcode | Phone Number | | Organization | | | | + +---------+ + + | EXTERNAL LAB | | | | + +---------+ + + Culture, Anaerobic (2018 1:33 PM PST) + + | Specimen | + + | Body fluid sample | | (specimen) | + + + + + | Narrative | Performed At | + + + | Specimen Description OTHER GRAM STAIN | EXTERNAL LAB | | 1+ | | | WBC'S SEEN | | | NO ORGANISMS SEEN CULTURE | | | 2+ | | | NORMAL UPPER RESPIRATORY DANIELLE | | | NO FURTHER WORKUP | | + + + + +---------+ + + | Performing | Address | City/State/Zipcode | Phone Number | | Organization | | | | + +---------+ + + | EXTERNAL LAB | | | | + +---------+ + + External Lab: CBC (2018 2:00 AM PST) + + + + + + | Component | Value | Ref Range | Performed | Pathologist | | | | | At | Signature | + + + + + + | WBC | 14.17 (H) | 3.80 - 11.00 | EXTERNAL | | | | | K/uL | LAB | | + + + + + + | RED CELL | 4.32 | 4.20 - 5.70 | EXTERNAL | | | COUNT | | M/uL | LAB | | + + + + + + | Hgb | 13.3 | 13.2 - 17.0 | EXTERNAL | | | | | g/dL | LAB | | + + + + + + | Hematocrit, | 39.1 | 39.0 - 50.0 % | EXTERNAL | | | POC | | | LAB | | + + + + + + | MCV | 90.5 | 80.0 - 100.0 fl | EXTERNAL | | | | | | LAB | | + + + + + + | MCH | 30.8 | 27.0 - 34.0 pg | EXTERNAL | | | | | | LAB | | + + + + + + | MCHC | 34.0 | 32.0 - 35.5 | EXTERNAL | | | | | g/dL | LAB | | + + + + + + | RDW-CV | 39.4 | 37 - 53 fl | EXTERNAL | | | | | | LAB | | + + + + + + | Platelet | 208 | 150 - 400 K/uL | EXTERNAL | | | Count | | | LAB | | | Plasma | | | | | + + + + + + | MPV | 9.6 | fl | EXTERNAL | | | | | | LAB | | + + + + + + | Differentia | AUTOMATED | | EXTERNAL | | | l Type | | | LAB | | + + + + + + | % Segmented | 75.16 | % | EXTERNAL | | | | | | LAB | | | Neutrophils | | | | | + + + + + + | % | 15.12 | % | EXTERNAL | | | Lymphocytes | | | LAB | | + + + + + + | % Monocytes | 9.01 | % | EXTERNAL | | | | | | LAB | | + + + + + + | % | 0.21 | % | EXTERNAL | | | Eosinophils | | | LAB | | + + + + + + | % Basophils | 0.50 | % | EXTERNAL | | | | | | LAB | | + + + + + + | Absolute | 10.66 (H) | 1.90 - 7.40 | EXTERNAL | | | Segmented | | K/uL | LAB | | | Neutrophils | | | | | + + + + + + | Absolute | 2.14 | 1.00 - 3.90 | EXTERNAL | | | Lymphocytes | | K/uL | LAB | | + + + + + + | Absolute | 1.28 (H) | 0.00 - 0.80 | EXTERNAL | | | Monocytes | | K/uL | LAB | | + + + + + + | Absolute | 0.03 | 0.00 - 0.50 | EXTERNAL | | | Eosinophils | | K/uL | LAB | | + + + + + + | Absolute | 0.07Comment: Testing | 0.00 - 0.10 | EXTERNAL | | | Basophils | performed at [facility];[address] | [address] | LAB | | | | [address];[place] | | | | | | [address] | | | | + + + + + + + + | Specimen | + + | Blood specimen | | (specimen) | + + + +---------+ + + | Performing | Address | City/State/Zipcode | Phone Number | | Organization | | | | + +---------+ + + | EXTERNAL LAB | | | | + +---------+ + + Phosphorus (2018 2:00 AM PST) + + + + + + | Component | Value | Ref Range | Performed | Pathologist | | | | | At | Signature | + + + + + + | PHOSPHORUS | 3.2Comment: Testing | 2.3 - 4.8 mg/dL | EXTERNAL | | | | performed at [facility];[address] | | LAB | | | | [address];[place], [place] | | | | | | [address] | | | | + + + + + + + + | Specimen | + + | Blood specimen | | (specimen) | + + + +---------+ + + | Performing | Address | City/State/Zipcode | Phone Number | | Organization | | | | + +---------+ + + | EXTERNAL LAB | | | | + +---------+ + + Magnesium (2018 2:00 AM PST) + + + + + + | Component | Value | Ref Range | Performed | Pathologist | | | | | At | Signature | + + + + + + | Magnesium | 1.7Comment: Testing | 1.7 - 2.4 mg/dL | EXTERNAL | | | | performed at [facility];[address] | | LAB | | | | [address];[place] | | | | | | [address] | | | | + + + + + + + + | Specimen | + + | Blood specimen | | (specimen) | + + + +---------+ + + | Performing | Address | City/State/Zipcode | Phone Number | | Organization | | | | + +---------+ + + | EXTERNAL LAB | | | | + +---------+ + + Lactic Acid (2018 2:00 AM PST) + + + + + + | Component | Value | Ref Range | Performed | Pathologist | | | | | At | Signature | + + + + + + | Lactate | 1.0Comment: Testing | 0.4 - 2.0 | EXTERNAL | | | | performed at [facility];888 | mmol/L | LAB | | | | [address];[place], [place] | | | | | | [address] | | | | + + + + + + + + | Specimen | + + | Blood specimen | | (specimen) | + + + +---------+ + + | Performing | Address | City/State/Zipcode | Phone Number | | Organization | | | | + +---------+ + + | EXTERNAL LAB | | | | + +---------+ + + Comprehensive Metabolic Panel (2018 2:00 AM PST) + + + + + + | Component | Value | Ref Range | Performed | Pathologist | | | | | At | Signature | + + + + + + | Na | 143 | 135 - 145 | EXTERNAL | | | | | mmol/L | LAB | | + + + + + + | K | 4.0 | 3.5 - 4.9 | EXTERNAL | | | | | mmol/L | LAB | | + + + + + + | Cl | 109 | 99 - 109 mmol/L | EXTERNAL | | | | | | LAB | | + + + + + + | CO2 | 26 | 23 - 32 mmol/L | EXTERNAL | | | | | | LAB | | + + + + + + | Anion Gap | 12 | 5 - 20 mmol/L | EXTERNAL | | | | | | LAB | | + + + + + + | Glucose, | 109 (H) | 65 - 99 mg/dL | EXTERNAL | | | Fasting | | | LAB | | + + + + + + | BUN | 11 | 8 - 25 mg/dL | EXTERNAL | | | | | | LAB | | + + + + + + | Creatinine | 0.72 | 0.70 - 1.30 | EXTERNAL | | | | | mg/dL | LAB | | + + + + + + | BUN/Creatin | 15 | | EXTERNAL | | | ine Ratio | | | LAB | | + + + + + + | Calcium | 8.2 (L) | 8.5 - 10.5 | EXTERNAL | | | | | mg/dL | LAB | | + + + + + + | Protein, | 6.6 | 6.3 - 8.2 g/dL | EXTERNAL | | | Total | | | LAB | | + + + + + + | Albumin | 4.4 | 3.6 - 5.0 g/dL | EXTERNAL | | | | | | LAB | | + + + + + + | Globulin | 2.2 | 1.3 - 4.9 g/dL | EXTERNAL | | | | | | LAB | | + + + + + + | A/G Ratio | 2.0 | 1.0 - 2.4 | EXTERNAL | | | | | | LAB | | + + + + + + | Bilirubin | 0.6 | 0.1 - 1.5 mg/dL | EXTERNAL | | | Total | | | LAB | | + + + + + + | ALP, | 65 | 35 - 115 U/L | EXTERNAL | | | External | | | LAB | | + + + + + + | AST | 14 | 10 - 45 U/L | EXTERNAL | | | | | | LAB | | + + + + + + | ALT | 14 | 10 - 65 U/L | EXTERNAL | | | | | | LAB | | + + + + + + | Estimated | >60Comment: GFR <60: | mL/min/1.73m2 | EXTERNAL | | | GFR | CHRONIC KIDNEY DISEASE, | | LAB | | | | IF FOUND OVER A 3 MONTH | | | | | | PERIOD.GFR <15: KIDNEY | | | | | | FAILURE.FOR | | | | | | AMERICANS, MULTIPLY THE | | | | | | CALCULATED GFR BY | | | | | | 1.210.This eGFR is | | | | | | calculated using the | | | | | | MDRD IDMS traceable | | | | | | equation.Testing | | | | | | performed at [facility];88 | | | | | | [facility];[place], [place] | | | | | | [address] | | | | + + + + + + + + | Specimen | + + | Blood specimen | | (specimen) | + + + +---------+ + + | Performing | Address | City/State/Zipcode | Phone Number | | Organization | | | | + +---------+ + + | EXTERNAL LAB | | | | + +---------+ + + documented in this encounter Visit Diagnoses Not on filedocumented in this encounter
--- OUTSIDE RECORDS SUMMARY | ~2019-10-26 | XMS | Encounter Summary ---
Demographics + + + | Address | [address] | | | [place] [address] | + + + | Home Phone | | + + + | Preferred Language | Unknown | + + + | Marital Status | Single | + + + | Sabianism Affiliation | CHR | + + + | Race | White | + + + | Ethnic Group | Not or | + + + Author + + + | Author | [facility] | + + + | Organization | [facility] | + + + | Address | Unknown | + + + | Phone | Unavailable | + + + Support + + + + + | Name | Relationship | Address | Phone | + + + + + | Sarahi Orozco | ECON | [address] | | | | | [place] | | | | | [address] | | + + + + + Care Team Providers + +------+ + | Care Stave Log Ripsaw Operator Name | Role | Phone | + +------+ + | Dajuan Jerome MD | PCP | | + +------+ + Encounter Details +--------+ + + + + | Date | Type | Department | Care Team | Description | +--------+ + + + + | 04/08/ | Load Mixer | [facility] | Sergo Valenzuela | Neurogenic Bladder, | | 2006 | | Floor [address] | MD Jos [address] | NOS; Spina Bifida | | | | St Mailcode: [facility] | Nasir Tineo [place], | without Mention of | | | | [facility] [place], [place] | [place] [address] | Hydrocephalus, | | | | [address] | [phone] | Lumbar Region | | | | [phone] | | | +--------+ + + + [...] Neurogenic bladder, NOS | + + | 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
--- OUTSIDE RECORDS SUMMARY | ~2019-10-26 | XMS | Encounter Summary ---
Demographics + + + | Address | [address] | | | [place] [address] | + + + | Home Phone | | + + + | Preferred Language | Unknown | + + + | Marital Status | Single | + + + | Holiness Affiliation | CHR | + + + | Race | White | + + + | Ethnic Group | Not or | + + + Author + + + | Author | [facility] | + + + | Organization | [facility] | + + + | Address | Unknown | + + + | Phone | Unavailable | + + + Support + + + + + | Name | Relationship | Address | Phone | + + + + + | Sarahi Orozco | ECON | [address] | | | | | [place] | | | | | [address] | | + + + + + Care Team Providers + +------+ + | Care Clinical Pharmacy Specialist Name | Role | Phone | + +------+ + | No Pcp Per Patient | PCP | Unavailable | + +------+ + Encounter Details +--------+ + + + + | Date | Type | Department | Care Team | Description | +--------+ + + + + | 08/10/ | Ancillary | Registration [id number] | Robert Johnson MD | | | 2005 | Registratio | [facility] | [address] | | | | [address] | [address] Mailcode: [id number] | [place], [place] | | | | | [place], [place] | [address] | | | | | [address] | [phone] | | | | | [phone] | | | +--------+ + + + [...]
--- OUTSIDE RECORDS SUMMARY | ~2019-10-26 | XMS | Encounter Summary ---
Demographics + + + | Address | [address] | | | [place] [address] | + + + | Home Phone | | + + + | Preferred Language | Unknown | + + + | Marital Status | Single | + + + | Latter-Day Affiliation | CHR | + + + | Race | White | + + + | Ethnic Group | Not or | + + + Author + + + | Author | [facility] | + + + | Organization | [facility] | + + + | Address | Unknown | + + + | Phone | Unavailable | + + + Support + + + + + | Name | Relationship | Address | Phone | + + + + + | Sarahi Orozco | ECON | [address] | | | | | [place] | | | | | [address] | | + + + + + Care Team Providers + +------+ + | Care Supervisor Ovens Name | Role | Phone | + +------+ + | Dajuan Jerome MD | PCP | | + +------+ + Encounter Details +--------+ + + + + | Date | Type | Department | Care Team | Description | +--------+ + + + + | 01/16/ | Hospital | Radiology at [facility] | | | | 2009 | Encounter | [address] [facility] | | | | | | Mailcode: [address] | | | | | | [place] | | | | | | [place], [place] | | | | | | [address] | | | | | | [phone] | | | +--------+ + + + [...] | + +--------+ + + + | X-RAY SCOLI SPINE | Routin | 01/16/2010 | | Results for this | | ENTIRE 36 1 VIEW | e | 3:45 PM | Lipomyelomeningocele | procedure are in the | | | | PST | Leg Length | results section. | | | | | Discrepancy, right | | | | | | Scoliosis | | + +--------+ + + + documented in this encounter Results X-RAY SCOLI SPINE ENTIRE 36 1 VIEW (01/16/2010 3:45 PM PST) + + + + + + | Component | Value | Ref Range | Performed | Pathologist | | | | | At | Signature | + + + + + + | SCOLI SPINE | AP spine radiograph: | | | | | ENTIRE 36 | 01/16/10. Comparison: | | | | | 1 VIEW | 07/02/05. History: | | | | | | Scoliosis. Impression: | | | | | | Lumbosacral | | | | | | dysraphism again noted. | | | | | | Upper | | | | | | thoraciclevocurvature | | | | | | measures 6.6 degrees. | | | | | | Thoracolumbar | | | | | | dextrocurvaturemeasures | | | | | | 7.2 degrees. Mild | | | | | | cephalad tilt of left | | | | | | hemipelvis.Femoral heads | | | | | | well contained by | | | | | | acetabula. Risser | | | | | | stage 2. I have | | | | | | personally viewed this | | | | | | procedure/exam and | | | | | | reviewed this report. | | | | | | Author: IVÁN Chris | | | | | | Morris KOVACSReviewer: | | | | | | IVÁN KOVACS, | | | | | | Morris STATUS FINAL / Dr. 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
--- OUTSIDE RECORDS SUMMARY | ~2019-10-26 | XMS | Encounter Summary ---
Demographics + + + | Address | [address] | | | [place] [address] | + + + | Home Phone | | + + + | Preferred Language | Unknown | + + + | Marital Status | Single | + + + | Church Affiliation | CHR | + + + | Race | White | + + + | Ethnic Group | Not or | + + + Author + + + | Author | [facility] | + + + | Organization | [facility] | + + + | Address | Unknown | + + + | Phone | Unavailable | + + + Support + + + + + | Name | Relationship | Address | Phone | + + + + + | Sarahi Orozco | ECON | [address] | | | | | [place] | | | | | [address] | | + + + + + Care Team Providers + +------+ + | Care Home Performance Consultant Name | Role | Phone | + [...] Description | +--------+---------+ + + + | 12/18/ | Office | [facility] 7[facility] | Robert Johnson MD | Lipomyelomeningocele | | 2010 | Visit | Floor [address] | [address] | ; Neurogenic | | | | St Mailcode: [facility] | [place], [place] | bladder, NOS; | | | | [facility] [place], [place] | [address] | Neurogenic bowel; | | | | [address] | [phone] | Scoliosis; Leg | | | | [phone] | | Length Discrepancy, | | | | | | right; Abnormal | | | | | | gait; Tethering of | | | | | | spinal cord (HCC); | | | | | | Pes Cavus, right; | | | | | | Monoparesis (HCC); | | | | | | Migraine headache | +--------+---------+ + + + Social History [...] + + + | Blood Pressure | 120/76 | 12/18/2010 10:07 AM | | | | | PST | | + + + + + | Pulse | 84 | 12/18/2010 10:07 AM | | | | | PST | | + + + + + | Temperature | - | - | | + + + + + | Respiratory Rate | - | - | | + + + + + | Oxygen Saturation | - | - | | + + + + + | Inhaled Oxygen | - | - | | | Concentration | | | | + + + + + | Weight | 56.6 kg (124 lb 12.5 | 12/18/2010 10:07 AM | | | | oz) | PST | | + + + + + | Height | 170 cm (5' 6.93") | 12/18/2010 10:07 AM | | | | | PST | | + + + + + | Body Mass Index | 19.58 | 12/18/2010 10:07 AM | | | | | PST | | + + + + + documented in this encounter Progress Notes Robert Johnson MD - 12/18/2010 11:34 AM BARRYI saw this patient with Dr. Burgos. I was pres ent for history, physical exam, planning and decision making as well as coordinating of care . I agree with Dr. Burgos's note, impressions and recommendations. 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 RECOMMENDATIONS: -We will obtain Urodynamics before Neurosurgery apt. -Referral to Neurosurgery pending results of Urodynamics. -Today to be seen by PT & Urology. -When this is all resolved he will be requesting referral back to Dr. Loera for placement of cecostomy for bowel continence. -For the Migraine headaches we Rx Topamax, as per the Neurologist. This can be assumed by his PCP hereafter. -Continue Orthopedics as per Dr. Canterll at [facility]. Foot surgery pending. -If nothing is needed at this time regarding tethering of the spinal cord, we will have him back in 3-6 months for Pediatrics & PT to monitor signs of spinal cord tethering. -We will schedule him back in one year for full team evaluation of this complex condition f or potential complications. -I spent 60 minutes in direct encounter with this patient, >50% counseling and/or coordinat ion of care. Robert Johnson MD Lj Souza Md - 12/18/2010 10:44 AM SAHIL JOHNSON MD 12/17/10 [facility] Developmental Pediatric[facility] Chief Complaint: A 14-year-old with headaches, progressive scoliosis, and progressive clums iness; rule out spinal cord tethering. Primary Provider: Umm Kaufman ([place], [place]) History of Present Illness: Pete still is having back pain, which is exacerbated by walking and skateboarding. He p oints to right paracentral lumbar spine. He states it has a needle-like quality, lasting for minutes at a time. He tries to adjust position until it stops. With regard to gait, he has more difficulty with stairs, but usually catches himself (no re ported falls). He has to walk more this year and this is more difficult. He states that he can run, and he states his sense of balance has improved since his last visit. His father notes that his posture is different (trunk tilted towards right). It is stable since his September 2010 appointment. He is still having migraines about 2 times weekly that resolve with sleep. He has missed " quite a few" days of school (~10 times). School absence has limited academic performance. 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 No specific new symptoms except as above. Orthopedics: He is in the midst of puberty growth spurt. Scoliosis x-ray, as above, did nacho w upper thoracic levoscoliosis 6 degrees, and thoracolumbar dextro curvature 7 degrees with tilt of the left hemipelvis. Repeated x-rays in 09/25 showed "thoracic levocurvature and lum bar dextrocurvature are unchanged and measure 6 and 7 degrees, respectively." He does have a right leg length discrepancy, shorter in the tibial segment by 2.5 cm. He wears an AFO, new ly constructed at [employer]. Anticipated right foot surgery with Dr. Cantrell to help alleviate pressure sores on plantar surface of right foot under 1st metatarsal head. Neurogenic Bladder: Urodynamics last October. Showed poor bladder compliance, highly trabe culated, did not leak until greater than 40 cm water pressure. He does his own clean intermi ttent catheterizations 5 times per day (has been in charge of self-catheterization since [facility] ). Anticholinergic was prescribed and now he is taking Ditropan XL 5 mg once daily. Currently being treated for a UTI (10 day course). This was his first ever infection. It w as heralded by "kidney pain" but no dysuria. Symptoms for 6 days before went to PCP. He javier f caths every 4 hours and has some leakage. He usually does not have a urinary urge. Family Situation: The parents are and . He has now been living with his b rother and father in [place], [place] for approximately 1 year. School: He is a freshman. Although he does have an IEP, he is not getting good grades, and the biggest barrier is frequent school absences (secondary to migraine, and more recently fr om UTI-related pain). Formal cognitive evaluation was in 2000, showed full-scale IQ of 89 wi thout a significant split; repeated in second grade showing executive function, spatial and memory scores ranging from 72 to 86, W[employer]MO in 2005 at school showed processing speed 80, full -scale IQ 70. Now participates in support in the learning center for some subjects. Physical Examination: Ht 170 cm (5' 6.93") (50 %ile), Wt 56.6 kg (124 lbs 12.5 oz) (51 %ile), Weight for age(%) 51.28%, BMI for age(%) 46.33%, Length for age(%) 50.37%, Head circumference 57 cm (22.44") , BP 120/76, Pulse 84, BMI 19.58 kg/(m^2). General Appearance: A well adolescent male with only somatic variation being a shortened ri ght distal lower extremity with diminished calf musculature and a smaller right foot. Alert, oriented, appropriate, cooperative, and conversant. HEENT: Normocephalic. Neck: Supple. Shanti st and Back: There is a well-healed midline surgical scar over the lumbosacral region withou t hirsutism, drainage, discoloration, or paresthesia; mild scoliosis when he bends forward, with a slight hump in the right lumbar region. Lungs: Clear to auscultation. Heart: Regular rhythm and physiologic sounds. Abdomen: No organomegaly, masses, tenderness, or guarding. Ge nital and Rectal: Deferred, and he is wearing continence devices. Skin: No lower extremity d iscoloration, edema, or temperature abnormality. Single healing abrasion over head of R firs t metatarsal. Orthopedics: The right calf and foot are obviously hypoplastic (from knee dist ally), and the right distal lower extremity tibial segment is 2.5 cm shorter; the pelvis is tilted down on the right. Decreased range of motion right ankle (~20-30 degrees, secondary t o prior fixation?) Neurological: MS: alert, oriented, normal speech, registration/recall 3/3, follows commands easily Cranial nerves: 2 through 12 are intact. Bilateral sharp optic discs and visual acuity 20/2 0 OU. Motor: Decreased bulk especially in right calf and right gluteals. Normal tone. 5/5 stren gth in bilateral upper extremities and left lower extremity. 4+ strength in right hip exten diaz. DTR: 2+ in biceps, BR, and patella. Areflexic in right Achilles, trace to 1+ in left Achil les; mute plantar reflex on right and flexor on left. Sensory:Vibratory sensation is intact, but slightly diminished at the right great toe. Loree larly, position sense is intact at both great toes. General light sensation and cold temp is spotty to absent distal to right ankle. Light and cold sensation preserved in other distal extremities Coordination: no dysmetria or ataxia, normal fine finger movements; reaches for support with toe stand and heel stand. Can balance on left foot but not on right Gait: casual gait is independent. Cannot toe or heel walk. (Please see separate PT note from today which shows improved proprioceptive and coordinatio n skills relative to examination 3 months ago). ULTRASOUND OF THE KIDNEYS AND BLADDER, 10/02/10 COMPARISON: 06/06/2008 The bladder wall is trabeculated, with debris seen in the bladder lumen. The estimated bladder volume at the beginning of the examination was 117 cc. The patient did void at the conclusion of the study. The postvoid volume measures approximately 3 cc. There is a possible posterolateral left bladder diverticulum, measuring up to 8 mm in diameter. No distal ureterectasis. The right kidney is normal in size, cortical echogenicity, and corticomedullary differentiation. The right kidney measures 9.1 x 4.2 x 5.2 cm, 104 cc in volume. There is no focal abnormality or pelvocaliectasis. The left kidney is normal in size, cortical echogenicity, and corticomedullary differentiation. The left kidney measures 9.7 x 3.7 x 5.1 cm, 95 cc in volume. There is mild left pelvocaliectasis, with the left renal pelvis measuring up to 6 mm in diameter; the left renal pelvis decreases to 3 mm in diameter after voiding. IMPRESSION: 1. Sonographically normal right kidney. 2. Mild left renal pelvocaliectasis, which resolves on voiding. 3. Trabeculated, neurogenic bladder with debris. Recommend correlation with urinalysis. SCOLI SPINE ENTIRE 36 1 VIEW: Exam: SPINE, ENTIRE 36" AP, 1 VIEW 10/03/10 09:26:00 Comparison: 01/16/2010 Impression: Thoracic levocurvature and lumbar dextrocurvature are unchanged and measure 6 and 7 degrees, respectively. There is cephalad tilt of the left hemipelvis. 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 5) Migraine Headaches [346.90] 6) Leg Length Discrepancy, right [736.81E] 7) Pes Cavus, right [754.71B] 8) Urinary tract infection The culmination of findings of urinary tract infection, back pain, mild monoparesis, and qu estion of proprioception/gait changes has raised the concern for a tethered cord. Given the findings on our examination as well as those of the physical therapists, we will proceed wi urodynamic studies with a plan to pursue neuroimaging if these indicate progressive bladd er dysfunction. RECOMMENDATIONS: 1) urodynamic studies 2) consider MRI total spine and brain if urodynamic studies indicate progressive dysfunctio n; subsequent referral to Dr. Deng 3) initiate topiramate 15 mg qhs for migraine prophylaxis; if inadequate response after 1 m onth, would increase dose to 30 mg qhs; will defer ongoing med management to PCP (could alte rnatively be seen by pediatric neurology for refractory migraine. 4) f/u with Dr. Cantrell for further orthopedic care to prevent ongoing pressure sores of righ t plantar surface 5) discussed routine foot inspections with family to prevent infections in presence of decr eased sensation -I spent 45 minutes in direct encounter with this patient, >50% counseling and/or coordinat ion of care. This patient was seen by and reviewed with Dr. Robert Johnson, Developmental Metal Template Maker, wh o agrees with the above assessment and plan. 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
--- OUTSIDE RECORDS SUMMARY | ~2019-10-26 | XMS | Encounter Summary ---
Demographics + + + | Address | [address] | | | [place] [address] | + + + | Home Phone | | + + + | Preferred Language | Unknown | + + + | Marital Status | Single | + + + | Bahai Affiliation | CHR | + + + | Race | White | + + + | Ethnic Group | Not or | + + + Author + + + | Author | [facility] | + + + | Organization | [facility] | + + + | Address | Unknown | + + + | Phone | Unavailable | + + + Support + + + + + | Name | Relationship | Address | Phone | + + + + + | Sarahi Orozco | ECON | [address] | | | | | [place] | | | | | [address] | | + + + + + Care Team Providers + +------+ + | Care Regulatory Leader Name | Role | Phone | + +------+ + | Dajuan Jerome MD | PCP | | + +------+ + Encounter Details +--------+ + + + + | Date | Type | Department | Care Team | Description | +--------+ + + + + | 07/30/ | Results | [facility]rology [facility]idents | Sergo Valenzuela | | | 2005 | Only | [address] | MD Jos [address] | | | | | [address] Mailcode: [address] | Nasir Tineo [place], | | | | | Physician's | [place] [address] | | | | | [address] | [phone] | | | | | [place], [place] | | | | | | [address] | | | | | | [phone] | | | +--------+ + + + [...]
--- OUTSIDE RECORDS SUMMARY | ~2019-10-26 | XMS | Encounter Summary ---
Demographics + + + | Address | [address] | | | [place] [address] | + + + | Home Phone | | + + + | Preferred Language | Unknown | + + + | Marital Status | Single | + + + | Voodoo Affiliation | CHR | + + + | Race | White | + + + | Ethnic Group | Not or | + + + Author + + + | Author | [facility] | + + + | Organization | [facility] | + + + | Address | Unknown | + + + | Phone | Unavailable | + + + Support + + + + + | Name | Relationship | Address | Phone | + + + + + | Sarahi Orozco | ECON | [address] | | | | | [place] | | | | | [address] | | + + + + + Care Team Providers + +------+ + | Care Lost Charge Card Clerk Name | Role | Phone | + +------+ + PCP | Unavailable | + +------+ + Encounter Details +--------+ + + + + | Date | Type | Department | Care Team | Description | +--------+ + + + + | 01/04/ | Results | [facility] 7th | Dave Malik MD | | | 2002 | Only | Floor [address] | [address] | | | | | St Mailcode: [facility] | Maritza Ferreira [place], | | | | | [facility] [place], [place] | [place] [address] | | | | | [address] | [phone] | | | | | [phone] | | | +--------+ + + + [...] | US KIDNEY BILATERAL | Routin | 01/04/2003 | | Results for this | | LTD | e | 11:56 AM | | procedure are in the | | | | PST | | results section. | + +--------+ + + + documented in this encounter Results US KIDNEY BILATERAL (01/04/2003 11:56 AM PST) + + + + + + | Component | Value | Ref Range | Performed | Pathologist | | | | | At | Signature | + + + + + + | US KIDNEY | Radiologist 1: FERMÍN, | | | | | COMPLETE | IVÁN ChrisRENAL | | | | | | ULTRASOUND: 01/04/2003 | | | | | | Dictated: | | | | | | 01/04/2003 COMPARISON: | | | | | | 05/04/2002. CLINICAL | | | | | | HISTORY: Neurogenic | | | | | | bladder. Spina bifida. | | | | | | FINDINGS: Multiple | | | | | | sonographic images of | | | | | | the kidneys and bladder | | | | | | weregenerated. The | | | | | | right kidney measures | | | | | | 7.2 cm x 4.4 x 3.5 cm | | | | | | and has avolume of 57 cc | | | | | | which is normal for the | | | | | | patient's weight of | | | | | | 23kilograms. The left | | | | | | kidney measures 7.1 cm x | | | | | | 4.1 cm x 3.8 cm and | | | | | | alsohas a volume of 57 | | | | | | cc, normal for the | | | | | | patient's weight. | | | | | | Parenchymalechogenicit | | | | | | y is normal. No | | | | | | stones, cysts, or masses | | | | | | are seen. | | | | | | Nohydronephrosis or | | | | | | hydroureter is | | | | | | identified. The bladder | | | | | | is trabeculated with an | | | | | | irregular margin. It | | | | | | cc prior to | | | | | | voiding and 92 cc after | | | | | | voiding with a large | | | | | | postvoidresidual. | | | | | | Debris is present | | | | | | within the urine. | | | | | | IMPRESSION: Normal | | | | | | sonographic appearance | | | | | | of kidneys without | | | | | | hydronephrosis | | | | | | orhydroureter. | | | | | | Trabeculated bladder | | | | | | with large postvoid | | | | | | residual anddebris. | | | | | | Findings were sent in | | | | | | writing to Dr. Malik at | | | | | | the time of thestudy. | | | | | | END OF IMPRESSION: | | | | + [...]
--- OUTSIDE RECORDS SUMMARY | ~2019-10-26 | XMS | Encounter Summary ---
Demographics + + + | Address | [address] | | | [place] [address] | + + + | Home Phone | | + + + | Preferred Language | Unknown | + + + | Marital Status | Single | + + + | Orthodox Affiliation | CHR | + + + [...] [place] | | | | | [address] | | + + + + + Care Team Providers + +------+ + | Care Garbage Worker Name | Role | Phone | + +------+ + PCP | Unavailable | + +------+ + Encounter Details +--------+ + + + + | Date | Type | Department | Care Team | Description | +--------+ + + + + | 04/10/ | Discharge | | Summary, Discharge | D/C Summary ODDS | | 2003 | Summary-Tra | | | | | | nscribed | | | | +--------+ + + [...] + + documented as of this encounter Discharge Summaries Interface, Instrumentation Engineer In - 05/30/2006 3:07 AM PDT [place] [address] [address] [facility] MEDICAL SUMMARY OF HOSPITALIZATION Med Rec No: [id number] Admission Date: 02/20/2003 Name: Pete Orozco Discharge Date: 02/23/2003 ATTENDING PHYSICIAN: Soha Nettles M.D. REFERRING PHYSICIAN: Marlyn Ng M.D. PRINCIPAL FINAL DIAGNOSIS: Tethered spinal cord. PRINCIPAL PROCEDURE: Complex untethering of spinal cord. ADDITIONAL PROCEDURES: 1. Child life. 2. Physical therapy and occupational therapy. REASON FOR ADMISSION AND HOSPITAL COURSE: The patient was having lower extremity weakness and difficulty weightbearing from a symptomatic spinal cord tethering. The patient was taken to the operating room on February 20, 2003 for complex untethering of his spinal cord. The patient's postoperative course was uncomplicated. CONDITION ON DISCHARGE: Good. PATIENT TO BE READMITTED: The patient is not to be readmitted. DISPOSITION: Home with outpatient physical therapy. MEDICATIONS: 1. Tylenol with codeine. 2. Ditropan 5 mg p.o. b.i.d. 3. Colace. DISCHARGE INSTRUCTIONS: DIET: Normal diet. ACTIVITY: Limited with no lifting and per physical therapy recommendations. FOLLOWUP: The patient is to follow up with the neurosurgery clinic in one week with Dr. Nettles. Morris Clifton M.D. RS:[id number] cc: GEOFF NG MD [address] [place] [address] [address] [place] [address] [id number] signed by Interface, Instrumentation Engineer In at 05/30/2006 3:07 AM PDTdoc umented in this encounter Plan of Treatment Not on filedocumented as of this encounter Visit Diagnoses Not on filedocumented in this encounter"
--- OUTSIDE RECORDS SUMMARY | ~2019-10-26 | XMS | Encounter Summary ---
Demographics + + + | Address | [address] | | | [place] [address] | + + + | Home Phone | | + + + | Preferred Language | Unknown | + + + | Marital Status | Single | + + + | Yazidi Affiliation | CHR | + + + | Race | White | + + + | Ethnic Group | Not or | + + + Author + + + | Author | [facility] | + + + | Organization | [facility] | + + + | Address | Unknown | + + + | Phone | Unavailable | + + + Support + + + + + | Name | Relationship | Address | Phone | + + + + + | Sarahi Orozco | ECON | [address] | | | | | [place] | | | | | [address] | | + + + + + Care Team Providers + +------+ + | Care Production Worker Name | Role | Phone | + +------+ + | Dajuan Jerome MD | PCP | | + +------+ + Encounter Details +--------+ + + + + | Date | Type | Department | Care Team | Description | +--------+ + + + + | 04/08/ | Supervisor [employer] | [facility] 7th | Sergo Valenzuela | Neurogenic Bladder, | | 2006 | | [address] | MD Jos [address] | NOS; Spina Bifida | | | | St Mailcode: [facility] | Nasir Tineo [place], | without Mention of | | | | [facility] [place], [place] | [place] [address] | Hydrocephalus, | | | | [address] | [phone] | Lumbar Region | | | | [phone] | | | +--------+ + + + [...]
--- OUTSIDE RECORDS SUMMARY | ~2019-10-26 | XMS | Encounter Summary ---
Demographics + + + | Address | [address] | | | [place] [address] | + + + | Home Phone | | + + + | Preferred Language | Unknown | + + + | Marital Status | Single | + + + | Mormon Affiliation | CHR | + + + [...] [place] | | | | | [address] | | + + + + + Care Team Providers + +------+ + | Care Cash Processor Name | Role | Phone | + +------+ + PCP | Unavailable | + +------+ + Encounter Details +--------+ + + + + | Date | Type | Department | Care Team | Description | +--------+ + + + + | 06/21/ | Office | [facility] | Consult, [...] as of this encounter Progress Notes Interface, Narrative Writer In - 05/09/2006 1:03 AM PDTCLINIC DATE: 06/21/2003 CLINIC NAME: [facility] DISCIPLINE: PEDIATRIC NURSE PRACTITIONER BACKGROUND: Pete is a [id number] male with 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 He attends [employer] [facility] in the company his mother, Nicky Duron. Chief concern: Pete is scheduled today for urology and orthotics follow-up. It became evident that review of his current bowel program was indicated. Nicky and Pete were both present for review and bowel program planning. Time of encounter with this recorder was 15 to 20 minutes. RECENT DATABASE REVIEW: Pete was last here for a full team spina bifida clinic in December 2002. Since that time he has undergone spinal cord untethering surgery and has returned for several neurosurgical postoperative follow-ups. General health has been otherwise good. NEUROGENIC BOWEL: Gabriel has a long history of problems with neurogenic bowel habits. He continues to have a pattern of two to three stools to a diaper on a daily basis. Stool volume is generally small, although there may be one larger, more bulky, stool each day. He takes no supplemental fiber and gets whatever fiber is in the food that he eats. There has been no change to his bowel program since he was here in December and Nicky does not recall the recommendations made at that time. Pete reports that he does have a sensation of needing to have a bowel movement but, immediately after that, the stool is in his diaper. RECOMMENDATIONS: Today's recommendations are essentially unchanged from those made in December. Pete would benefit from a habit training program. It is stressed to Nicky today that a certain time each day be set aside for purposes of Pete's bowel training program. It is suggested that magazines, coloring books, other entertaining items be available for Pete during the 20 minutes or so that he will be seated at the toilet. In addition, it is essential that he have a foot stool so that there is foot support. It is also to his benefit to plan the time for one-half hour or so after a meal, either breakfast or dinner, each day for a minimum of two weeks. Pete is to have administered or learn to administer to himself a Doculax suppository (5 mg). This can be done 20 or 30 minutes after a meal. 15 or 20 minutes after that, Pete is to sit on the toilet, occupy himself blowing bubbles, reading, or coloring. The purpose of the suppository is to promote full evacuation of his colon and it is hoped that this will prevent the series of smaller stools that do occur into his diaper throughout the rest of the day. In addition, it is recommended that daily Daquan-Fiber be added to his food intake. This can be dissolved in water or juice. It is suggested that he take lta-qui-r-half teaspoons in the morning and again in the evening. Nicky is given an instructive handout to take home, which specifically explains the process of a habit-training program. Nicky and Pete both expressed an understanding of the current plan. PLAN FOR FOLLOW-UP: Nicky is encouraged to call me with questions or concerns that arise during the course of this training program. The frequency of Doculax suppository use can be gradually decreased after the two week to four week training period. It is hoped that this program will allow Pete to attend school this fall and be continent of stool. Dennise Solares, RN, MS, CPNP. 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 He was last seen here in December. At that time, he was restarted on oxybutynin 5 mg twice a day and re-taught intermittent catheterization. The patient returns today for further evaluation. Since last seen, he has been participating in his own cath program particularly at school. He is cathed by his mother on three to four other occasions during the day. He is largely dry between catheterizations. His mother did have some questions about his bowel program. On physical examination today, his abdomen is soft and nontender. I had him catheterize himself in front of me. He easily inserted the catheter and obtained 100 cc of urine. A urinalysis demonstrated it to be positive for leukocyte esterase and nitrite, but he is asymptomatic. ASSESSMENT: The patient is doing well on his present CIC program. I reviewed it again with the family. They will return to see us on a routine basis. I refilled their prescriptions. Dave Malik M.D., F.A.A.P. [id number] signed by Interface, Narrative Writer In at 05/09/2006 1:03 AM [facility] umented in this encounter Plan of Treatment Not on filedocumented as of this encounter Visit Diagnoses Not on filedocumented in this encounter"
--- OUTSIDE RECORDS SUMMARY | ~2019-10-26 | XMS | Encounter Summary ---
Demographics + + + | Address | [address] | | | [place] [address] | + + + | Home Phone [...] [place] | | | | | [address] | | + + + + + Care Team Providers + +------+ + | Care Endo Tech Name | Role | Phone | + +------+ + | No Pcp Per Patient | PCP | Unavailable | + +------+ + Encounter Details +--------+ + + + + | Date | Type | Department | Care Team | Description | +--------+ + + + + | 03/06/ | Ancillary | LAB CORE [address] | | | | 2014 | Orders | [address] | | | | | | [place], [place] | | | | | | [address] | | | | | | [phone] | | | +--------+ + + + [...] | + +--------+ + + + | CBC AND AUTO DIFF | Routin | 03/06/2015 | Other | Results for this | | | e | 8:20 AM | postoperative | procedure are in the | | | | PDT | infection [ICD-9-CM] | results section. | + +--------+ + + + | CBC, WITH | Routin | 03/06/2015 | Other | Results for this | | DIFFERENTIAL | e | 8:20 AM | postoperative | procedure are in the | | | | PDT | infection [ICD-9-CM] | results section. | + +--------+ + + + | C-REACTIVE PROTEIN | Routin | 03/06/2015 | Other | Results for this | | | e | 8:20 AM | postoperative | procedure are in the | | | | PDT | infection [ICD-9-CM] | results section. | + +--------+ + + + | SEDIMENTATION RATE | Routin | 03/06/2015 | Other | Results for this | | | e | 8:20 AM | postoperative | procedure are in the | | | | PDT | infection [ICD-9-CM] | results section. | + +--------+ + + + documented in this encounter Results CBC AND AUTO DIFF (03/06/2015 8:20 AM PDT) + + + + + + | Component | Value | Ref Range | Performed | Pathologist | | | | | At | Signature | + + + + + + | WHITE CELL | 17.75 (H) | 4.40 - 11.00 | [facility] | | | COUNT | | K/cu mm | LABORATORY | | | | | | SERVICES, | | | | | | CORE | | + + + + + + | RED CELL | 4.03 (L) | 4.50 - 6.00 | [facility] | | | COUNT | | M/cu mm | LABORATORY | | | | | | SERVICES, | | | | | | CORE | | + + + + + + | HEMOGLOBIN | 12.1 (L) | 13.5 - 17.5 | [facility] | | | | | g/dL | LABORATORY | | | | | | SERVICES, | | | | | | CORE | | + + + + + + | HEMATOCRIT | 35.7 (L) | 41.0 - 53.0 % | [facility] | | | | | | LABORATORY | | | | | | SERVICES, | | | | | | CORE | | + + + + + + | MCV | 88.6 | 80.0 - 96.0 fL | [facility] | | | | | | LABORATORY | | | | | | SERVICES, | | | | | | CORE | | + + + + + + | MCHC | 33.9 | 33.0 - 35.5 | [facility] | | | | | g/dL | LABORATORY | | | | | | SERVICES, | | | | | | CORE | | + + + + + + | RDW SD | 36.7 | 35.1 - 46.3 fL | [facility] | | | | | | LABORATORY | | | | | | SERVICES, | | | | | | CORE | | + + + + + + | PLATELET | 238 | 150 - 400 K/cu | [facility] | | | COUNT | | mm | LABORATORY | | | | | | SERVICES, | | | | | | CORE | | + + + + + + | MPV | 11.7 | 9.7 - 12.3 fL | [facility] | | | | | | LABORATORY | | | | | | SERVICES, | | | | | | CORE | | + + + + + + | NRBC% | 0.0 | 0.0 - 0.3 % | [facility] | | | | | | LABORATORY | | | | | | SERVICES, | | | | | | CORE | | + + + + + + | NRBC# | 0.00 | 0.00 - 0.02 | [facility] | | | | | K/cu mm | LABORATORY | | | | | | SERVICES, | | | | | | CORE | | + + + + + + | NEUTROPHIL | 86.3 (H) | 50.0 - 70.0 % | [facility] | | | % | | | LABORATORY | | | | | | SERVICES, | | | | | | CORE | | + + + + + + | LYMPHOCYTE | 6.7 (L) | 18.0 - 42.0 % | [facility] | | | % | | | LABORATORY | | | | | | SERVICES, | | | | | | CORE | | + + + + + + | MONOCYTE % | 6.2 | 3.5 - 9.0 % | [facility] | | | | | | LABORATORY | | | | | | SERVICES, | | | | | | CORE | | + + + + + + | EOS % | 0.1 (L) | 1.0 - 3.0 % | [facility] | | | | | | LABORATORY | | | | | | SERVICES, | | | | | | CORE | | + + + + + + | BASO % | 0.1 | 0.0 - 2.0 % | [facility] | | | | | | LABORATORY | | | | | | SERVICES, | | | | | | CORE | | + + + + + + | IG% | 0.6Comment: Immature | 0.0 - 0.6 % | [facility] | | | | Granulocytes (IG) | | LABORATORY | | | | include metamyelocytes, | | SERVICES, | | | | myelocytes and | | CORE | | | | promyelocytes. Bands | | | | | | are not included in the | | | | | | IG count. Bands are | | | | | | included in the | | | | | | neutrophil count. | | | | + + + + + + | NEUTROPHIL | 15.34 (H) | 1.80 - 7.70 | [facility] | | | # | | K/cu mm | LABORATORY | | | | | | SERVICES, | | | | | | CORE | | + + + + + + | LYMPHOCYTE | 1.19 | 1.00 - 4.80 | [facility] | | | # | | K/cu mm | LABORATORY | | | | | | SERVICES, | | | | | | CORE | | + + + + + + | MONOCYTE # | 1.10 (H) | 0.10 - 0.90 | [facility] | | | | | K/cu mm | LABORATORY | | | | | | SERVICES, | | | | | | CORE | | + + + + + + | EOS # | 0.01 | 0.00 - 0.50 | [facility] | | | | | K/cu mm | LABORATORY | | | | | | SERVICES, | | | | | | CORE | | + + + + + + | BASO # | 0.01 | 0.00 - 0.10 | [facility] | | | | | K/cu mm | LABORATORY | | | | | | SERVICES, | | | | | | CORE | | + + + + + + | IG# | 0.10 (H) | 0.00 - 0.03 | [facility] | | | | | K/cu mm | LABORATORY | | | | | | SERVICES, | | | | | | CORE | | + + + + + + + + | Specimen | + + | Blood - Blood | + + + + + | Narrative | Performed At | + + + | Immature Granulocytes (IG) include metamyelocytes, myelocytes | [facility] | | and promyelocytes. Bands are not included in the IG count. Bands are | LABORATORY | | included in the neutrophil count. | SERVICES, CORE | + + + + + + + + | Performing | Address | City/State/Zipcode | Phone Number | | Organization | | | | + + + + + | [facility] | [address] | [place] [address] | | | SERVICES, CORE | [address] | | | + + + + + SEDIMENTATION RATE (03/06/2015 8:20 AM PDT) + +--------+ + + + | Component | Value | Ref Range | Performed | Pathologist | | | | | At | Signature | + +--------+ + + + | SEDIMENTATI | 28 (H) | 0 - 15 mm/hr | [facility] | | | ON RATE | | | LABORATORY | | | | | | SERVICES, | | | | | | CORE | | + +--------+ + + + + + | Specimen | + + | Blood - Blood | + + + + + + + | Performing | Address | City/State/Zipcode | Phone Number | | Organization | | | | + + + + + | [facility] | [address] | [place] [address] | | | SERVICES, CORE | [address] | | | + + + + + C-REACTIVE PROTEIN (03/06/2015 8:20 AM PDT) + + + + + + | Component | Value | Ref Range | Performed | Pathologist | | | | | At | Signature | + + + + + + | C-REACTIVE | 94.0 (H) | <10.0 mg/L | [facility] | | | PROTEIN | | | LABORATORY | | | | | | SERVICES, | | | | | | CORE | | + + + + + + + + | Specimen | + + | Blood - Blood | + + + + + | Narrative | Performed At | + + + | New method, new reference range and new reporting units as of | [facility] | | 04/19/2014. | LABORATORY | | | [facility] | + + + + + + + + | Performing | Address | City/State/Zipcode | Phone Number | | Organization | | | | + + + + + | [facility] | [address] | [place] [address] | | | [facility] | [address] | | | + + + + + documented in this encounter Visit Diagnoses + + | Diagnosis | + + | Other postoperative infection | + + documented in this encounter"
--- OUTSIDE RECORDS SUMMARY | ~2019-10-26 | XMS | Encounter Summary ---
Demographics + + + | Address | [address] | | | [place] [address] | + + + | Home Phone | | + + + | Preferred Language | Unknown | + + + | Marital Status | Single | + + + | Muslim Affiliation | CHR | + + + | Race | White | + + + | Ethnic Group | Not or | + + + Author + + + | Author | [facility] | + + + | Organization | [facility] | + + + | Address | Unknown | + + + | Phone | Unavailable | + + + Support + + + + + | Name | Relationship | Address | Phone | + + + + + | Sarahi Orozco | ECON | [address] | | | | | [place] | | | | | [address] | | + + + + + Care Team Providers + +------+ + | Care Asbestos Textile Supervisor Name | Role | Phone | + +------+ + PCP | Unavailable | + +------+ + Encounter Details +--------+ + + + + | Date | Type | Department | Care Team | Description | +--------+ + + + + | 03/06/ | Office | [facility] | Consult, [facility] | Progress Note | | 2003 | Visit-Trans | | | | | [...] as of this encounter Progress Notes Interface, Nailing Machine Feeder In - 06/14/2005 7:10 PM PDTClinic Date: 03/06/2004 Clinic Name [facility] Discipline Physical Therapy Pete attended the clinic today accompanied by his father and his grandmother. He is a boy of [age] years of ago who has lumbosacral lipomyelomeningocele with essentially intact neuromotor functioning except that pertaining to his right foot. That is, he has weakness of his anterior and lateral compartment muscles on the right foot. Pete had progression of deformity with the right foot and had spinal cord untethering done in February 2003. This resulted in improved alignment and reduction of the progressive cloacal deformity but did not address the progressive equinovarus deformity. He was thereafter fitted with supramalleolar orthoses (SMOs) but has not continued to wear these because of difficulty with skin tolerance. Pete also revealed a healing wound on the dorsal aspect of the fifth toe on the left foot that resulted from blistering with shoe wear but its depth was so remarkable as to underline the role of his impaired sensation on that side. He does have sensation but is impaired so that skin impingement is not painful enough for him to take note of and remove the impingement. I tried to impress upon him the importance of monitoring his skin. 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 He has at best passive reduction to neutral dorsiflexion but is in varus orientation with his calcaneus and has varus inversion through the length of his foot. He has diminished callus formation at his heel and markedly enhanced callus formation under his metatarsal heads laterally. This does reveal his pattern of weightbearing where he is primarily on the anterior aspect of the sole and laterally at that. This does appear to be simple progression of his muscle imbalance rather than new evidence of neurogenic deformity. That is, this deformity was preexisting but is progressing. I understood that Dr. Buckley of orthopedics referred him to Dr. Cobb for consideration for orthopedic intervention. I applauded this. Otherwise Pete displays normal activation of his musculature throughout both lower limbs and with good functional performance. He was understandably reluctant to perform some dynamic upright activities in the gym but showed apparently good organization to do so. He reported that he was unable to skip but cited the mechanical difficulty of his right foot as the reason for this. I will plan to evaluate Pete anew at his next scheduled full team appointment at the clinic. Raul Zamora Physical Therapist [id number] signed by Interface, Nailing Machine Feeder In at 06/14/2005 7:10 PM PDTdoc umented in this encounter Plan of Treatment Not on filedocumented as of this encounter Visit Diagnoses Not on filedocumented in this encounter"
--- OUTSIDE RECORDS SUMMARY | ~2019-10-26 | XMS | Encounter Summary ---
Demographics + + + | Address | [address] | | | [place] [address] | + + + | Home Phone [...] [place] | | | | | [address] | | + + + + + Care Team Providers + +------+ + | Care Heater Planer Operator Name | Role | Phone | + +------+ + PCP | Unavailable | + +------+ + Encounter Details +--------+ + + + + | Date | Type | Department | Care Team | Description | +--------+ + + + + | 12/03/ | Results | [facility] | Madhav Cobb MD | | | 2004 | Only | & Rehabilitation | [address] | | | | | [address] | [address] | | | | | Loop Mailcode: | [place], [place] | | | | | [id number] Physician's | [phone] | | | | | [place], | [phone] | | | | | [place] [address] | | | | | | [phone] | | | +--------+ + + + [...] + +--------+ + + + | X-RAY FOOT 2 VIEWS | Routin | 12/03/2004 | | Results for this | | RIGHT | e | 9:24 AM | | procedure are in the | | | | PST | | results section. | + +--------+ + + + documented in this encounter Results FOOT 2 VIEWS RIGHT (12/03/2004 9:24 AM PST) + + + + + + | Component | Value | Ref Range | Performed | Pathologist | | | | | At | Signature | + + + + + + | FOOT 2 | Radiologist 1: FERMÍN, | | | | | VIEWS RIGHT | IVÁN ChrisAP and | | | | | | lateral radiographs of | | | | | | the right foot: 12/03/04. | | | | | | Comparison: None. 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 Findings: On | | | | | | these standing | | | | | | radiographs, the heal is | | | | | | elevated offof the | | | | | | floor, and there is | | | | | | plantar flexion of the | | | | | | ankle. Hindfootvarus | | | | | | and calcaneal equinus | | | | | | are present. 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 | | | | | | Hammertoe deformityis | | | | | | also present. | | | | + + + + + + + + | Specimen | + + | | + + + +---------+ + + | Performing | Address | City/State/Zipcode | Phone Number | | Organization | | | | + +---------+ + + | [facility] DEPARTMENT OF | | | | | RADIOLOGY | | | | + +---------+ + + documented in this encounter Visit Diagnoses Not on filedocumented in this encounter"
--- OUTSIDE RECORDS SUMMARY | ~2019-10-26 | XMS | Encounter Summary ---
Demographics + + + | Address | [address] | | | [place] [address] | + + + | Home Phone [...] Author + + + | Author | [facility] | + + + | Organization | [facility] | + + + | Address | Unknown | + + + | Phone | Unavailable | + + + Support + + + + + | Name | Relationship | Address | Phone | + + + + + | Sarahi Orozco | ECON | [address] | | | | | [place] | | | | | [address] | | + + + + + Care Team Providers + +------+ + | Care Front Desk Worker Name | Role | Phone | + +------+ + | Umm Kaufman MD | PCP | | + +------+ + Encounter Details +--------+ + + + + | Date | Type | Department | Care Team | Description | +--------+ + + + + | 04/14/ | Hospital | Radiology at [facility] | | | | 2011 | Encounter | [address] [facility] [facility] | | | | | | Mailcode: [address] | | | | | | [place] | | | | | | [place] | | | | | | [address] | | | | | | [phone] | | | +--------+ + + + [...] + + documented as of this encounter Medications at Time of Discharge + + + +---------+ + + | Medication | Sig | Dispensed | Refills | Start | End Date | | | | | | Date | | + + + +---------+ + + | ibuprofen 200 mg | Take 1 Tab by mouth | | 0 | 05/30/20 | | | Oral Tablet | every six hours as | | | 12 | | | | needed. | | | | | + + + +---------+ + + documented as of this encounter Plan of Treatment Not on filedocumented as of this encounter Procedures + +--------+ + + + | Procedure Name | Priori | Date/Time | Associated Diagnosis | Comments | | | ty | | | | + +--------+ + + + | US KIDNEY & BLADDER | Routin | 04/14/2012 | Neurogenic | Results for this | | | e | 2:43 PM | bladder, NOS | procedure are in the | | | | PDT | Lipomyelomeningocele | results section. | | | | | Neurogenic bowel | | + +--------+ + + + documented in this encounter Results KIDNEY & BLADDER (04/14/2012 2:43 PM PDT) + + + + + + | Component | Value | Ref Range | Performed | Pathologist | | | | | At | Signature | + + + + + + | US KIDNEY & | ULTRASOUND OF THE | | | | | BLADDER | KIDNEYS AND | | | | | | BLADDER,04/14/12HISTORY: | | | | | | Rule out hydronephrosis; | | | | | | status post bladder | | | | | | augmentation inAugust | | | | | | 2010 COMPARISON: | | | | | | 10/02/10 | | | | | | TECHNIQUE:Real-time | | | | | | ultrasound of the | | | | | | kidneys and bladder was | | | | | | performed. FINDINGS:The | | | | | | bladder wall is lobular | | | | | | in contour consistent | | | | | | with prioraugmentation, | | | | | | with debris seen in the | | | | | | bladder lumen. The | | | | | | estimatedbladder volume | | | | | | at the beginning of the | | | | | | examination was 120 cc. | | | | | | Thepatient did | | | | | | catheterize at the | | | | | | conclusion of the study. | | | | | | The postcatheterization | | | | | | volume measures | | | | | | approximately 4 cc. The | | | | | | right kidney is normal | | | | | | in size, cortical | | | | | | echogenicity, | | | | | | andcorticomedullary | | | | | | differentiation. The | | | | | | right kidney measures | | | | | | 9.4 x4.3 x 5.1 cm, 109 | | | | | | cc in volume. There is | | | | | | no focal abnormality | | | | | | orpelvocaliectasis. The | | | | | | left kidney is normal in | | | | | | size, cortical | | | | | | echogenicity, | | | | | | andcorticomedullary | | | | | | differentiation. The | | | | | | left kidney measures 9.3 | | | | | | x 4.4x 4.6 cm,100 cc in | | | | | | volume. There is no | | | | | | left pelviectasis. | | | | | | Bilateral renal lengths | | | | | | measure between the | | | | | | fifth and | | | | | | 50thpercentiles for age. | | | | | | IMPRESSION: 1. Normal | | | | | | kidneys.2. Status | | | | | | post bladder | | | | | | augmentation. | | | | | | Persistent bladder | | | | | | debris. Attending | | | | | | Radiologists: Arline | | | | | | Morris CarAuthor: | | | | | | Arline Car M.D. I | | | | | | have personally viewed | | | | | | this procedure/exam, | | | | | | reviewed this report,and | | | | | | made changes to it | | | | | | where appropriate. 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
--- OUTSIDE RECORDS SUMMARY | ~2019-10-26 | XMS | Encounter Summary ---
Demographics + + + | Address | [address] | | | [place] [address] | + + + | Home Phone | | + + + | Preferred Language | Unknown | + + + | Marital Status | Single | + + + | Pentec[employer]al Affiliation | CHR | + + + [...] [place] | | | | | [address] | | + + + + + Care Team Providers + +------+ + | Care Mash Grinder Name | Role | Phone | + +------+ + | Dajuan Jerome MD | PCP | | + +------+ + Encounter Details +--------+ + + + + | Date | Type | Department | Care Team | Description | +--------+ + + + + | 05/21/ | Transcribed | | Dictation, Other | Transcribed | | 2000 | | | | | +--------+ + + [...] as of this encounter Progress Notes Interface, Tire Builder Operator In - 01/01/2007 6:[address] [facility] [address], [place], [place] [address] May 20, 2000 [facility] [address] [facility] [place] [address] RE: Pete Orozco MR# [id number] Dear Umm: We saw [age]- [age]-old Pete Orozco [facility] for a routine visit. I last saw him in January,. Things have apparently been medically stable, except for recurrence of complaints about back or leg discomfort. LIPOMYELOMENINGOCELE: He still has full function. The parents report asymmetry in his gait, limb size, and sensation. However, on examination today, he has the ability to run quite well. Muscle mass is symmetrical. Foot size is symmetrical. In fact, today I find that his Babinski signs are symmetrical, as are the deep tendon reflexes (in the past I have reported slightly better on the left, and magnetic resonance imaging apparently reports diminished routes on the right). As before, the lipomatous mass is slightly to the midline on the right; there is a well-healed, midline surgical scar from the upper lumbar through the sacral region. There is no paresthesia, discoloration, or drainage; there is a "step" sign in the mid lumbar region. ORTHOPEDICS: The parents have reported asymmetry in muscle mass and limb size, but these are not confirmed on measurements today. Specifically, leg length is identical (51 cm), and calf at the widest circumference and thigh 7 cm above the knee cap are identical measurements; also foot size. A week ago he had an episode in which he awakened at night with pain and was unable to walk. This persisted for about a day and then resolved spontaneously. There was a similar history about a year ago. However, since function looks perfectly normal today, we will just observe. NEUROGENIC BLADDER: Toilet training has been attempted now for about two years without success. Today, his renal ultrasound is quite normal. It is, therefore, time to provide a continence mechanism for this boy. Clean, intermittent catheterization is, therefore, taught and commenced. NEUROGENIC BOWEL: As above, continence has been unsuccessful. We will therefore give him a schedule program. We will sit him on the commode every evening after supper for a maximum of twenty minutes. He is wearing Pull-Ups, and our goal is to change him over to regular underwear. We will have him back in three months to evaluate bowel and bladder programming. We will probably have to add additional medication to stimulate bowel movements at the scheduled time. DEVELOPMENT: He is evaluated today by the physical therapist. He has been riding a bicycle without training wheels since approximately [age] years of age! Formal testing today places his landmarks at over [age] years age, so he is actually advanced in gross motor function. FAMILY SITUATION: Essentially unchanged. Intact. One older and one younger brother. The family relocated back to the [facility] from [place] last year. PHYSICAL EXAMINATION: VITAL SIGNS: Weight 16.2 kg (50th percentile and parallel). Length 102.3 cm (25th percentile and parallel). Head circumference 50.0 cm (25th percentile and parallel). Blood pressure 104/51. Pulse 111. GENERAL: Totally well-appearing, male with no somatic anomalies. Upon examination, the lipomatous mass over the back is visible. HEENT: He is normocephalic. Extraocular movements are full. Pupils are equal, round, and reactive to light and accommodation, and red reflexes are symmetrical. There is no nystagmus or strabismus; fundi are benign bilaterally. Tympanic membranes, normal landmarks and mobility bilaterally. No significant oral lesions. CHEST/BACK: Chest and back are without deformity except for the "step" sign and lipoma, as described above. LUNGS: Lungs are clear. HEART: Regular rhythm and physiologic sounds. ABDOMEN: No organomegaly or mass. GENITALIA: Normal male, testes distended bilaterally. No hernia or hydrocele; uncircumcised. Pulses are normal. Lymphatics are normal. SKIN: No significant lesions. ORTHOPEDICS: No contractures or deformities. NEUROLOGIC: Cranial nerves III, IV, , VII, IX through XII are intact. Deep tendon reflexes are 2+ and symmetrical throughout, though I am unable to elicit them at the ankles (normal finding). Babinski signs are down-turning bilaterally. Normal gait, strength, tone. DISCUSSION: Things are medically stable. His renal ultrasound also remains stable. He has had another episode of leg and back pain and apparent weakness, but it resolved within 24 hours. Our only option is to monitor these and to refer for further evaluation if an episode is persistent or confirmed severe. It is time to start continence programs. Clean, intermittent catheterization is taught today. Bowel timing evacuation is commenced. We should see them in three months to see how things are going. I hope this is helpful to you, Umm, in your care of this child and family. Please call if we can offer any additional clarification, liaison, or coordination. Robert Johnson M.D. Developmental Physician Credentialing Specialist [id number] C: 05/26/2000/rafael documented in this encounter Plan of Treatment Not on filedocumented as of this encounter Visit Diagnoses Not on filedocumented in this encounter
--- OUTSIDE RECORDS SUMMARY | ~2019-10-26 | XMS | Encounter Summary ---
Demographics + + + | Address | [address] | | | [place] [address] | + + + | Home Phone | | + + + | Preferred Language | Unknown | + + + | Marital Status | Single | + + + | Oriental Orthodox Affiliation | CHR | + + [...] [place] | | | | | [address] | | + + + + + Care Team Providers + +------+ + | Care Dynamiter Name | Role | Phone | + +------+ + | Umm Kaufman MD | PCP | | + +------+ + Reason for Visit + + + | Reason | Comments | + + + | Infection Of Skin | R toe infection | + + + Encounter Details +--------+ + + + + | Date | Type | Department | Care Team | Description | +--------+ + + + + | 04/14/ | Emergency | [facility] Emergency | [place], | | | 2011 | | Department [address] | [address] [facility] | | | | | [address] | [address] | | | | | [facility] | [place], [place] | | | | | [place], [place] | [address] | | | | | [address] | [phone] | | | | | [phone] | | | +--------+ + + + [...] + + + | Blood Pressure | 92/51 | 04/14/2012 8:00 PM | | | | | PDT | | + + + + + | Pulse | 68 | 04/14/2012 8:00 PM | | | | | PDT | | + + + + + | Temperature | 36.4 C (97.5 F) | 04/14/2012 4:39 PM | | | | | PDT | | + + + + + | Respiratory Rate | 20 | 04/14/2012 8:00 PM | | | | | PDT | | + + + + + | Oxygen Saturation | 97% | 04/14/2012 8:00 PM | | | | | PDT | | + + + + + | Inhaled Oxygen | - | - | | | Concentration | | | | + + + + + | Weight | 55 kg (121 lb 4.1 | 04/14/2012 4:39 PM | | | | oz) | PDT | | + + + + + | Height | 173.5 cm (5' 8.31") | 04/14/2012 4:39 PM | | | | | PDT | | + + + + + | Body Mass Index | 18.27 | 04/14/2012 4:39 PM | | | | | PDT | | + + + + + documented in this encounter Discharge Instructions Instructions Trixie Velez MD - 04/14/2012Formatting of this note might be different fro m the original. Thank you for coming to the Emergency Department today. Please read the attached informatio n about your condition and instructions regarding follow-up. It is important to follow up wi th a primary care provider in order to review how you are doing after today's visit as well as to review any tests that were done or medications that were started in the emergency depa rtment. Please go to the nearest ED immediately if you develop any of the symptoms listed be low or for any other symptoms that concern you. Please do not hesitate to ask if you do not understand these instructions or need any more information. We hope you feel better soon! Cellulitis: After Your Visit to the Emergency Room Your Care Instructions Cellulitis is a skin infection that can spread to other tissues in the body. It can lead to a serious infection of the blood. It is important to follow instructions for home treatment and follow-up care so that you recover completely. Even though you have been released from the emergency room, you still need to watch for any problems. The doctor carefully checked you. But sometimes problems can develop later. If yo u have new symptoms, or if your symptoms do not get better, return to the emergency room or call your doctor right away. A visit to the emergency room is only one step in your treatment. Even if you feel better, you still need to do what your doctor recommends, such as going to all suggested follow-up a ppointments and taking medicines exactly as directed. This will help you recover and help pr event future problems. How can you care for yourself at home? You may need antibiotics that you take through a tube in your arm (IV) at home. Your doc tor will tell you how to use this medicine. If you are taking antibiotic pills, take them as directed. Do not stop taking them just because you feel better. You need to take the full course of antibiotics. Prop up the infected area on pillows to reduce pain and swelling. Try to keep the area a melissa the level of your heart as much as you can. Keep the skin clean and dry. Change your bandages as your doctor has told you. Take pain medicines exactly as directed. If the doctor gave you a prescription medicine for pain, take it as prescribed. If you are not taking a prescription pain medicine, ask your doctor if you can take an o [id number] medicine. If your doctor told you to use support stockings, wear them as directed. This will help prevent swelling. Get plenty of rest. Follow up with your doctor to make sure that the infection is gone. When should you call for help? Call 911 if: You passed out (lost consciousness). You have other symptoms that you think are a medical emergency. Return to the emergency room now if: You are dizzy or lightheaded, or you feel like you may faint. You have signs that the infection is getting worse, such as: Increased pain, swelling, warmth, or redness. New or increasing red streaks leading from the skin infection. New or increasing pus draining from the skin infection. A new or higher fever. Call your doctor today if: You have problems with your medicine. Where can you learn more? To learn more about "Cellulitis: After Your Visit to the Emergency Room", log into your [employer] account at [email or web address]. You can enter E813 in the [employer]" se arch box. Not on [employer]? Review the [employer] section of your After Visit Summary for directions on ho w to sign up. [id number] [employer]2. Care instructions adapted under license by [facility]. This care instruction is for use with your licensed healthWheego Electric Cars e professional. If you have questions about a medical condition or this instruction, always ask your healthcare professional. [employer] disclaims any warranty or liabili ty for your use of this information. Content Version: 9.3.29324; Last Revised: September 08, 2011 documented in this encounter Medications at Time [...] + + +---------+ + + | ibuprofen 600 mg | Take 1 Tab by mouth | 30 Tab | 0 | 05/30/20 | | | Oral Tablet | every eight hours as | | | 12 | | | | needed for moderate | | | | | | | pain. Take with | | | | | | | food and a full | | | | | | | glass of water. | | | | | + + + +---------+ + + | oxyCODONE, | Take 1 Tab by mouth | 14 Tab | 0 | /30/20 | | | immediate release, 5 | every six hours as | | | 12 | | | mg Oral Tablet | needed for severe | | | | | | | pain. | | | | | + + + +---------+ + + | | Take 1 Tab by mouth | 10 Tab | 0 | 05/30/20 | | | trimethoprim-sulfame | two times daily. | | | 12 | | | thoxazole 160-800 mg | | | | | | | Oral Tablet | | | | | | + + + +---------+ + + documented as of this encounter Plan of Treatment Not on filedocumented as of this encounter Procedures + +--------+ + + + | Procedure Name | Priori | Date/Time | Associated Diagnosis | Comments | | | ty | | | | + +--------+ + + + | X-RAY FOOT 3 VIEWS | Urgent | 04/14/2012 | | Results for this | | RIGHT | | 5:47 PM | | procedure are in the | | | | PDT | | results section. | + +--------+ + + + | DIFFERENTIAL | Urgent | 04/14/2012 | | Results for this | | | | 4:56 PM | | procedure are in the | | | | PDT | | results section. | + +--------+ + + + | CBC, WITH | Urgent | 04/14/2012 | | Results for this | | DIFFERENTIAL | | 4:56 PM | | procedure are in the | | | | PDT | | results section. | + +--------+ + + + | COMPLETE METABOLIC | Urgent | 04/14/2012 | | Results for this | | SET | | 4:56 PM | | procedure are in the | | (NA,K,CL,CO2,BUN,CRE | | PDT | | results section. | | AT,GLUC,CA,AST,ALT,B | | | | | | GLENYS TOTAL,ALK | | | | | | PHOS,ALB,PROT TOTAL) | | | | | + +--------+ + + + | C-REACTIVE PROTEIN | Urgent | 04/14/2012 | | Results for this | | | | 4:56 PM | | procedure are in the | | | | PDT | | results section. | + +--------+ + + + | SEDIMENTATION RATE | Urgent | 04/14/2012 | | Results for this | | | | 4:56 PM | | procedure are in the | | | | PDT | | results section. | + +--------+ + + + documented in this encounter Results X-RAY FOOT 3 VIEWS RIGHT (04/14/2012 5:47 PM PDT) + + + + + + | Component | Value | Ref Range | Performed | Pathologist | | | | | At | Signature | + + + + + + | FOOT 3 | EXAM: Three views right | | | | | VIEWS RIGHT | foot HISTORY: | | | | | | 16-year-old patient with | | | | | | spina bifida and acute | | | | | | footswelling. History | | | | | | of L4 to L5 diminished | | | | | | sensory level | | | | | | andnonambulatory. | | | | | | COMPARISON: None | | | | | | FINDINGS: There is soft | | | | | | tissue swelling | | | | | | involving the region of | | | | | | themetatarsal phalangeal | | | | | | portion of the foot, | | | | | | particularly at the | | | | | | baseof the thumb. No | | | | | | subcutaneous air seen. | | | | | | No radiopaque foreign | | | | | | body. There is chronic | | | | | | subluxation of the fifth | | | | | | metatarsal | | | | | | phalangealjoint. | | | | | | Medial to the first | | | | | | MTP joint, there is a | | | | | | 3-mm density | | | | | | whichappears well | | | | | | corticated and a chronic | | | | | | finding. There is | | | | | | sclerosisand cortical | | | | | | collapse of the | | | | | | navicular bone which is | | | | | | also most likelya | | | | | | chronic finding. | | | | | | Diffuse and | | | | | | periarticular osteopenia | | | | | | as well asthe first MCP | | | | | | joint hallux valgus | | | | | | deformity noted. | | | | | | IMPRESSION:1. Severe | | | | | | soft tissue swelling as | | | | | | described above. No | | | | | | echographicevidence for | | | | | | gas in the soft tissues | | | | | | over radiopaque foreign | | | | | | body. 2. Chronic fifth | | | | | | MTP subluxation. 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 Fusion of | | | | | | proximal and | | | | | | midphalangeal joints are | | | | | | also chronic finding. | | | | | | Attending Radiologists: | | | | | | CHELSI TERRY M.D.Author: | | | | | | CHELSI TERRY M.D. I | | | | | | have personally viewed | | | | | | this procedure/exam, | | | | | | reviewed this report,and | | | | | | made changes to it | | | | | | where appropriate. | | | | | | Final/Electronically | | | | | | lester / CHELSI BANDARJEFF | | | | | | 04/14/2012 20:16 PM | | | | + + + + + + + + | Specimen | + + | | + + + +---------+ + + | Performing | Address | City/State/Zipcode | Phone Number | | Organization | | | | + +---------+ + + | [facility] DEPARTMENT OF | | | | | RADIOLOGY | | | | + +---------+ + + DIFFERENTIAL (04/14/2012 4:56 PM PDT) + +-------+ + + + | Component | Value | Ref Range | Performed | Pathologist | | | | | At | Signature | + +-------+ + + + | NEUTROPHIL | 62 | 41 - 76 % | [facility] | | | % | | | DEPARTMENT | | | | | | OF | | | | | | PATHOLOGY | | + +-------+ + + + | LYMPHOCYTE | 29 | 7 - 41 % | [facility] | | | % | | | DEPARTMENT | | | | | | OF | | | | | | PATHOLOGY | | + +-------+ + + + | MONOCYTE % | 7 | 3 - 13 % | [facility] | | | | | | DEPARTMENT | | | | | | OF | | | | | | PATHOLOGY | | + +-------+ + + + | EOS % | 2 | <7 % | [facility] | | | | | | DEPARTMENT | | | | | | OF | | | | | | PATHOLOGY | | + +-------+ + + + | BASO % | 0 | <3 % | [facility] | | | | | | DEPARTMENT | | | | | | OF | | | | | | PATHOLOGY | | + +-------+ + + + | NEUTROPHIL | 5.1 | 2.8 - 11.1 K/cu | [facility] | | | # | | mm | DEPARTMENT | | | | | | OF | | | | | | PATHOLOGY | | + +-------+ + + + | LYMPHOCYTE | 2.4 | 0.4 - 3.2 K/cu | [facility] | | | # | | mm | DEPARTMENT | | | | | | OF | | | | | | PATHOLOGY | | + +-------+ + + + | MONOCYTE # | 0.6 | 0.3 - 1.3 K/cu | [facility] | | | | | mm | DEPARTMENT | | | | | | OF | | | | | | PATHOLOGY | | + +-------+ + + + | EOS # | 0.2 | <0.4 K/cu mm | [facility] | | | | | | DEPARTMENT | | | | | | OF | | | | | | PATHOLOGY | | + +-------+ + + + | BASO # | 0.0 | <0.3 | [facility] | | | | | | DEPARTMENT | | | | | | OF | | | | | | PATHOLOGY | | + +-------+ + + + + + | Specimen | + + | | + + + + + + + | Performing | Address | City/State/Zipcode | Phone Number | | Organization | | | | + + + + + | [facility] DEPARTMENT [facility] | [address] | [place] [address] | | | PATHOLOGY | [address] | | | + + + + + COMPLETE METABOLIC SET (NA,K,CL,CO2,BUN,CREAT,GLUC,CA,AST,ALT,BILI TOTAL,ALK PHOS,ALB,PROT TOTAL) (04/14/2012 4:56 PM PDT) + +-------+ + + + | Component | Value | Ref Range | Performed | Pathologist | | | | | At | Signature | + +-------+ + + + | GLUCOSE, | 92 | 60 - 99 mg/dL | [facility] | | | PLASMA | | | DEPARTMENT | | | (LAB) | | | OF | | | | | | PATHOLOGY | | + +-------+ + + + | BUN, PLASMA | 16 | 6 - 20 mg/dL | [facility] | | | (LAB) | | | DEPARTMENT | | | | | | OF | | | | | | PATHOLOGY | | + +-------+ + + + | CREATININE | 0.60 | 0.46 - 0.81 | [facility] | | | PLASMA | | mg/dL | DEPARTMENT | | | (LAB) | | | OF | | | | | | PATHOLOGY | | + +-------+ + + + | TOTAL | 6.7 | 6.1 - 7.9 g/dL | [facility] | | | PROTEIN, | | | DEPARTMENT | | | PLASMA | | | OF | | | (LAB) | | | PATHOLOGY | | + +-------+ + + + | ALBUMIN, | 3.6 | 3.5 - 4.7 g/dL | [facility] | | | PLASMA | | | DEPARTMENT | | | (LAB) | | | OF | | | | | | PATHOLOGY | | + +-------+ + + + | CALCIUM, | 9.1 | 8.6 - 10.2 | [facility] | | | PLASMA | | mg/dL | DEPARTMENT | | | (LAB) | | | OF | | | | | | PATHOLOGY | | + +-------+ + + + | BILIRUBIN | 0.4 | 0.3 - 1.2 mg/dL | [facility] | | | TOTAL | | | DEPARTMENT | | | | | | OF | | | | | | PATHOLOGY | | + +-------+ + + + | ALK PHOS | 119 | 55 - 220 U/L | [facility] | | | | | | DEPARTMENT | | | | | | OF | | | | | | PATHOLOGY | | + +-------+ + + + | AST(SGOT) | 16 | 15 - 41 U/L | [facility] | | | | | | DEPARTMENT | | | | | | OF | | | | | | PATHOLOGY | | + +-------+ + + + | SODIUM, | 139 | 134 - 143 | [facility] | | | PLASMA | | mmol/L | DEPARTMENT | | | (LAB) | | | OF | | | | | | PATHOLOGY | | + +-------+ + + + | POTASSIUM, | 3.8 | 3.4 - 5.0 | [facility] | | | PLASMA | | mmol/L | DEPARTMENT | | | (LAB) | | | OF | | | | | | PATHOLOGY | | + +-------+ + + + | CHLORIDE, | 104 | 97 - 108 mmol/L | [facility] | | | PLASMA | | | DEPARTMENT | | | (LAB) | | | OF | | | | | | PATHOLOGY | | + +-------+ + + + | TOTAL CO2, | 29 | 22 - 29 mmol/L | [facility] | | | PLASMA | | | DEPARTMENT | | | (LAB) | | | OF | | | | | | PATHOLOGY | | + +-------+ + + + | ALT (SGPT) | 13 | 13 - 48 U/L | [facility] | | | | | | DEPARTMENT | | | | | | OF | | | | | | PATHOLOGY | | + +-------+ + + + | ANION GAP | 6 | 4 - 11 mmol/L | [facility] | | | | | | DEPARTMENT | | | | | | OF | | | | | | PATHOLOGY | | + +-------+ + + + | ANION | 7 | 4 - 11 mmol/L | [facility] | | | GAP(ALB | | | DEPARTMENT | | | CORRECTED) | | | OF | | | | | | PATHOLOGY | | + +-------+ + + + + + | Specimen | + + | Blood - Blood | + + + + + + + | Performing | Address | City/State/Zipcode | Phone Number | | Organization | | | | + + + + + | [facility] | [address] | [place] [address] | | | PATHOLOGY | [address] | | | + + + + + C-REACT PRTN (FOR INFLAMMATION) (04/14/2012 4:56 PM PDT) + +---------+ + + + | Component | Value | Ref Range | Performed | Pathologist | | | | | At | Signature | + +---------+ + + + | C-REACTIVE | 1.3 (H) | <0.6 mg/dl | [facility] | | | PROTEIN | | | REGIONAL | | | | | | LABORATORY | | + +---------+ + + + + + | Specimen | + + | Blood - Blood | + + + + + | Narrative | Performed At | + + + | [facility]) | [facility] | | [facility] [address] | REGIONAL | | [place] [address] | LABORATORY | + + + + + + + + | Performing | Address | City/State/Zipcode | Phone Number | | Organization | | | | + + + + + | [facility] | [address] | [place] [address] | | | LABORATORY | | | | + + + + + SEDIMENTATION RATE (04/14/2012 4:56 PM PDT) + +-------+ + + + | Component | Value | Ref Range | Performed | Pathologist | | | | | At | Signature | + +-------+ + + + | SEDIMENTATI | 11 | <16 mm/hr | [facility] | | | ON RATE | | | DEPARTMENT | | | | | | OF | | | | | | PATHOLOGY | | + +-------+ + + + + + | Specimen | + + | Blood - Blood | + + + + + + + | Performing | Address | City/State/Zipcode | Phone Number | | Organization | | | | + + + + + | [facility] DEPARTMENT OF | [address] | [place] [address] | | | PATHOLOGY | [address] | | | + + + + + CBC, WITH DIFFERENTIAL (04/14/2012 4:56 PM PDT) + + + + + + | Component | Value | Ref Range | Performed | Pathologist | | | | | At | Signature | + + + + + + | WHITE CELL | 8.2 | 4.9 - 15.5 K/cu | [facility] | | | COUNT | | mm | DEPARTMENT | | | | | | OF | | | | | | PATHOLOGY | | + + + + + + | RED CELL | 4.49 (L) | 4.50 - 5.30 | [facility] | | | COUNT | | M/cu mm | DEPARTMENT | | | | | | OF | | | | | | PATHOLOGY | | + + + + + + | HEMOGLOBIN | 13.6 | 13.0 - 16.0 | [facility] | | | | | g/dL | DEPARTMENT | | | | | | OF | | | | | | PATHOLOGY | | + + + + + + | HEMATOCRIT | 40.1 | 37.0 - 49.0 % | [facility] | | | | | | DEPARTMENT | | | | | | OF | | | | | | PATHOLOGY | | + + + + + + | MCV | 89.4 | 80.0 - 96.0 fL | [facility] | | | | | | DEPARTMENT | | | | | | OF | | | | | | PATHOLOGY | | + + + + + + | MCHC | 33.8 | 33.4 - 35.5 | [facility] | | | | | g/dL | DEPARTMENT | | | | | | OF | | | | | | PATHOLOGY | | + + + + + + | RDW | 12.9 | 11.5 - 15.0 % | [facility] | | | | | | DEPARTMENT | | | | | | OF | | | | | | PATHOLOGY | | + + + + + + | PLATELET | 280 | 150 - 400 K/cu | [facility] | | | COUNT | | mm | DEPARTMENT | | | | | | OF | | | | | | PATHOLOGY | | + + + + + + + + | Specimen | + + | Blood - Blood | + + + + + + + | Performing | Address | City/State/Zipcode | Phone Number | | Organization | | | | + + + + + | [facility] DEPARTMENT | [address] | [place] [address] | | | PATHOLOGY | [address] | | | + + + + + documented in this encounter Visit Diagnoses + + | Diagnosis | + + | Cellulitis of foot Cellulitis and abscess of foot, except toes | + + documented in this encounter Administered Medications + +---------+ +------+--------+------+ | Medication Order | MAR | Action | Dose | Rate | Site | | | Action | Date | | | | + +---------+ +------+--------+------+ | HYDROmorphone (aka DILAUDID) | New Bag | 04/14/20 | 1 mg | mL/hr | | | injection 0.5-1 mg 0.5-1 mg, | | 12 8:02 | | | | | intravenous, EVERY 30 MINUTES | | PM PDT | | | | | NEEDED, 3 doses, Starting Wed | | | | | | | 04/14/12 at 1752, Until Wed | | | | | | | 04/14/12 at 2002, moderate pain | | | | | | + +---------+ +------+--------+------+ +---------+ +------+--------+---+ | New Bag | 04/14/20 | 1 mg | mL/hr | | | | 12 6:55 | | | | | | PM PDT | | | | +---------+ +------+--------+---+ | New Bag | 04/14/20 | 1 mg | mL/hr | | | | 12 6:12 | | | | | | PM PDT | | | | +---------+ +------+--------+---+ +---+---+ | | | +---+---+ + +-------+ +------+---+---+ | ondansetron ODT (aka ZOFRAN | Given | 04/14/20 | 4 mg | | | | ODT) tablet 4 mg 4 mg, oral, | | 12 5:18 | | | | | ONCE, 1 dose, 04/14/12 at 1730 | | PM PDT | | | | + +-------+ +------+---+---+ +---+---+ | | | +---+---+ + +-------+ +------+---+---+ | ondansetron ODT (aka ZOFRAN | Given | 04/14/20 | 4 mg | | | | ODT) tablet 4 mg 4 mg, oral, | | 12 6:36 | | | | | ONCE, 1 dose, 04/14/12 at 1900 | | PM PDT | | | | + +-------+ +------+---+---+ +---+---+ | | | +---+---+ + +-------+ +-------+---+---+ | oxyCODONE immediate release | Given | 04/14/20 | 10 mg | | | | (aka ROXICODONE) tablet 10 mg 10 | | 12 5:19 | | | | | mg, oral, ONCE, 1 dose, Wed | | PM PDT | | | | | 04/14/12 at 1730 | | | | | | + +-------+ +-------+---+---+ +---+---+ | | | +---+---+ documented in this encounter
--- OUTSIDE RECORDS SUMMARY | ~2019-10-26 | XMS | Encounter Summary ---
Demographics + + + | Address | [address] | | | [place] [address] | + + + | Home Phone | | + + + | Preferred Language | Unknown | + + + | Marital Status | Single | + + + | Quaker Affiliation | CHR | + + + [...] [place] | | | | | [address] | | + + + + + Care Team Providers + +------+ + | Care Photo Retoucher Name | Role | Phone | + [...] | 05/03/ | Refill | [facility] | Robert Johnson MD | Refill Request; | | 2009 | | Floor [address] | [address] | Erroneous Encounter | | | | St Mailcode: [facility] | [place], [place] | - Disregard | | | | [facility] [place], [place] | [address] | | | | | [address] | [phone] | | | | | [phone] | | | +--------+--------+ + + + [...]
--- OUTSIDE RECORDS SUMMARY | ~2019-10-26 | XMS | Encounter Summary ---
Demographics + + + | Address | [address] | | | [place] [address] | + + + | Home Phone | | + + + | Preferred Language | Unknown | + + + | Marital Status | Single | + + + | Confucianist Affiliation | CHR | + + + | Race | White | + + + | Ethnic Group | Not or | + + + Author + + + | Author | [facility] | + + + | Organization | [facility] | + + + | Address | Unknown | + + + | Phone | Unavailable | + + + Support + + + + + | Name | Relationship | Address | Phone | + + + + + | Sarahi Orozco | ECON | [address] | | | | | [place] | | | | | [address] | | + + + + + Care Team Providers + +------+ + | Care Casting Carrier Name | Role | Phone | + +------+ + | Dajuan [place] MD | PCP | | + +------+ + Reason for Visit + + + | Reason | Comments | + + + | Follow-up visit | | + + + Encounter Details +--------+---------+ + + + | Date | Type | Department | Care Team | Description | +--------+---------+ + + + | 04/21/ | Office | [facility] at [facility] 7th | [place], | Spina Bifida without | | 2006 | Visit | Floor [address] | Neli, [employer] [address] | Mention of | | | | St Mailcode: [facility] | [address] | Hydrocephalus, | | | | [facility] [place] | Rd [place], [place] | Lumbar Region | | | | [address] | [address] | (Primary Dx) | | | | [phone] | | | +--------+---------+ + + + [...] documented as of this encounter Progress Notes Neli Robison - 04/21/2007 3:43 PM [facility] Social Work Note Pete, 11 years of age, [facility] with his mother, brother Jared and fr iend of mother. This is a return visit for Pete, but he has not been seen for nearly 2 y ears because of loss of health insurance. He has a diagnostic list that includes a repaired lipomyelomeningocele, neurogenic bowel and bladder. He has had headaches for the past severa l months and I had been working with this family during that time trying to help them identi fy alternative coverage. Pete's mother Nicky now has health insurance through her employ er ([email or web address] ). Nicky hasn't inquired whether the insurance will cover the cos t of catheters, I suggested that she do so. Nicky is not sure how well this new insurance p casey will cover specialty medical care, she has a $40 co-pay for today's visit. It will be i mportant for social work to monitor this issue with this family. Pete lives in [place] (15 miles outside of [place]) with his parents and 9 year old brother Jared. Pete has a 16 year old brother Dave who is currently living with an aunt in [place]. Pete's dad works outside of the family home driving a milk truck, Nicky works for [employer]. Pete reports that his favorite leisure activities involves playing w ith friends and riding bikes. 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 He reports that his favorite subject is PE, easiest subject is PE and hardest subject i s math. He is able to store his incontinence supplies in a staff bathroom. Next fall he wi ll transition to a middle school (Nicky thinks that name of the school is [employer] and Nicky reports that there has been a transition meeting, plans for academic support a s well as a location for storage for incontinence supplies have been made. There are no recommendations beyond the above suggestions about health insurance. Social w ork remains available as needed. Neli Robison [facility] Ph. [phone] signed by Neli Robison at 04/21/2007 3:43 PM PDTdocume nted in this encounter Plan of Treatment Not on filedocumented as of this encounter Visit Diagnoses + + | Diagnosis | + + | Spina bifida without mention of hydrocephalus, lumbar region - Primary | + + documented in this encounter"
--- OUTSIDE RECORDS SUMMARY | ~2019-10-26 | XMS | Encounter Summary ---
Demographics + + + | Address | [address] | | | [place] [address] | + + + | Home Phone | | + + + | Preferred Language | Unknown | + + + | Marital Status | Single | + + + | Religion Affiliation | CHR | + + + | Race | White | + + + | Ethnic Group | Not or | + + + Author + + + | Author | [facility] | + + + | Organization | [facility] | + + + | Address | Unknown | + + + | Phone | Unavailable | + + + Support + + + + + | Name | Relationship | Address | Phone | + + + + + | Sarahi Orozco | ECON | [address] | | | | | [place] | | | | | [address] | | + + + + + Care Team Providers + +------+ + | Care Manager Financial Name | Role | Phone | + [...] [address] | | | | | | [place], [place] | | | | | | [address] | | | | | | [phone] | | | +--------+ + + + [...] + +--------+ + + + | CULTURE, TISSUE | Routin | 03/06/2015 | Pressure ulcer, | Results for this | | | e | 1:42 PM | other site(097.) | procedure are in the | | | | PDT | [ICD-9-CM] | results section. | + +--------+ + + + | CULTURE, TISSUE | Routin | 03/06/2015 | Pressure ulcer, | Results for this | | | e | 1:42 PM | other site(707.75) | procedure are in the | | | | PDT | [ICD-9-CM] | results section. | + +--------+ + + + documented in this encounter Results CULTURE, TISSUE (03/06/2015 1:42 PM PDT) + + + + + + | Component | Value | Ref Range | Performed | Pathologist | | | | | At | Signature | + + + + + + | CULTURE | Streptococcus pyogenes | | [facility] | | | RESULT | (group a) (A) | | [facility] | | | | | | [place] | | + + + + + + | CULTURE | Fusobacterium | | [facility] - | | | RESULT | necrophorum (A) | | [facility] | | | | | | [place] | | + + + + + + | CULTURE | Prevotella species (A) | | [facility] - | | | RESULT | | | [facility] | | | | | | [place] | | + + + + + + | CULTURE | Prevotella bivia (A) | | [facility] - | | | RESULT | | | [facility] | | | | | | [place] | | + + + + + + + + | Specimen | + + | Tissue | + + + + + | Narrative | Performed At | + + + | Culture Report: Rare Streptococcus pyogenes, Group A Refer to | [facility] - | | culture collected 03/06/2015 1:42 PM site #1 for susceptibilities 1+ | [facility] - | | Fusobacterium necrophorum 1+ Prevotella species 1+ Prevotella | [place] | | bivia Gram Stain: No squamous epithelial cells No | | | polymorphonuclear cells No organisms seen | | + + + + + + + + | Performing | Address | City/State/Zipcode | Phone Number | | Organization | | | | + + + + + | [facility] | [address] | [place] [address] | | | [place] | | | | + + + + + CULTURE, TISSUE (03/06/2015 1:42 PM PDT) + + + + + + | Component | Value | Ref Range | Performed | Pathologist | | | | | At | Signature | + + + + + + | CULTURE | Streptococcus pyogenes | | [facility] - | | | RESULT | (group a) (A) | | [facility] | | | | | | [place] | | + + + + + + + + | Specimen | + + | Tissue | + + + + + | Narrative | Performed At | + + + | Culture Report: 1+ Streptococcus pyogenes, Group A No anaerobic | [facility] - | | organisms isolated. Gram Stain: No squamous epithelial cells | [facility] - | | Many polymorphonuclear cells Moderate Gram positive cocci . | [place] | + + + + + +--------+ + | Organism | Antibiotic | Method | Susceptibility | + + +--------+ + | Streptococcus | Clindamycin | | Sensitive | | pyogenes (Group A) | | | | + + +--------+ + | Streptococcus | Erythromycin | | Sensitive | | pyogenes (Group A) | | | | + + +--------+ + + + | Comment: These | | organisms are | | routinely | | susceptible to | | penicillins and | | cephalosporins. | + + + + + + + | Performing | Address | City/State/Zipcode | Phone Number | | Organization | | | | + + + + + | [facility] | [address] | [place] [address] | | | [place] | | | | + + + + + documented in this encounter Visit Diagnoses + + | Diagnosis | + + | Pressure ulcer, other site(707.09) Pressure ulcer, other site | + + documented in this encounter"
--- OUTSIDE RECORDS SUMMARY | ~2019-10-26 | XMS | Encounter Summary ---
Demographics + + + | Address | [address] | | | [place] [address] | + + + | Home Phone | | + + + | Preferred Language | Unknown | + + + | Marital Status | Single | + + + | Sikhism Affiliation | CHR | + + + [...] [address] | | | | | [place] | | | | | [address] | | + + + + + Care Team Providers + +------+ + | Care Pacu Nurse Name | Role | Phone | + [...] | | Bifida | Spina | Dajuan Hinson MD | Bifida 707 | | | | | bifida | [place] | [facility] | | | | | without | [place] | Mailcode: | | | | | mention of | HEALTH DEPT | [facility] | | | | | hydrocephalu | [address] [place] [address] | [place], [place] | | | | | s, lumbar | [place], | [address] | | | | | region | [place] [address] | Phone: | | | | | Neurogenic | Phone: | [phone] | | | | | bladder, [facility] | [phone] | Fax: | | | | | Procedures | Fax: | [phone] | | | | | [place] | [phone] | | | | | | US,RETROPERI | | | | | | | T, | | | | | | | B-SCAN/REAL | | | | | | | TIME,COMPLET | | | | | | | E annual sb | | | | | | | team eval | | | | | | | CA,WF,LY,EA | | | | | | | (W/[place]) | | | +--------+--------+ + + + + Encounter Details +--------+---------+ + + + | Date | Type | Department | Care Team | Description | +--------+---------+ + + + | 05/03/ | Office | [facility] at [facility] 7th | Liliane Aldana, | Spina Bifida without | | 2007 | Visit | Floor [address] | PNP [address] | Mention of | | | | St Mailcode: [facility] | [address] | Hydrocephalus, | | | | [facility] [place] | [place], [place] | Lumbar Region | | | | [address] | [address] | (Primary Dx) | | | | [phone] | [phone] | | | | | | | | +--------+---------+ + + + [...] documented as of this encounter Progress Notes Liliane Aldana - 05/03/2008 9:10 AM Taylor was seen for a neurosurgical evaluation i n the [facility] on May 03, 2008. He was accompanied to the visit by his father. SUBJECTIVE: Pete is a 12-year-old boy with a lumbosacral level lipomyelomeningocele. He had his init ial repair in January 1996, and a tether release in February 2003. He has a deformity of his right lower extremity a nd foot and has undergone tendon transfer and flexor releases in December 2004. Pete continues to have headaches approximately once every 2 weeks. They typically occur at the end of the day. They are "behind his eyes"(unchanged), and they can be bilateral or u nilateral. They come on suddenly with no aura. He has vomited a few times over the years wit h "really bad ones", but if he takes ibuprofen early and sleeps they go away. He is sensitiv e to light and noise with the headaches. Mother and her 2 sisters suffer from migraines. Father states that Pete had his eyes checked at [facility] about 2 years ago, and does n ot need glasses. There has not been an opthalmology exam. Headaches are not related to position of his neck or body. He does not wake with them. He d enies any difficulty with swallowing, choking, or gagging. He does not snore. There has been no change is position or strength of extremities. He denies any neck, back, or extremity pain. He reports no changes in bowel or bladder function. Continues to [facility] q4hr during the day/le aking. No UTI's. Bowel, he denies accidents. OBJECTIVE: Pt. is alert, oriented and in NAD. He makes eye contact and answers questions appropriately . PERRL, Full EOMI with good upgaze and no nystagmus. Facial features and movements are symmetrical. Tongue is midline, Palate rises with phonati on. Neck is supple, Full ROM. Bilateral full strength symmetrical shoulder shrug. No pronator drift. No dysmetria. Finger to nose is intact. Abdomen is soft and non-tender, non-distended. UE 5/5, DTR 2+, negative Terry. LE 5/5 hip flex/extension. Patellar DTR 1+ , Able to plantar 1/5, dorsi 1/5 Able to wiggle toes well. RLE 5/5 flex/extension. There is decreased muscle tone and bulk to the calf. Patellar DTR 1 /4. Foot is with deformity and claw toes. No dorsiflex/plantar flex. ASSESSMENT/PLAN: Pete's headaches continue to sound migrainous on history. He is not complaining of symto matic chiari currently. I reccommended follow up with PCP for headache evaluation and manage ment. Opthalomolgy is strongly encouraged as well to assess for papilledama. Pete is currently showing no sign of spinal cord retethering. He is followed at [facility] orthopedics.I reviewed the signs and symptoms with his father and asked her to call up if they should occur. Otherwise, Pete will be seen routinely in the [facility]. Liliane VINSON documented in this encou nter Plan of Treatment Not on filedocumented as of this encounter Visit Diagnoses + + | Diagnosis | + + | Spina bifida without mention of hydrocephalus, lumbar region - Primary | + + documented in this encounter
--- OUTSIDE RECORDS SUMMARY | ~2019-10-26 | XMS | Encounter Summary ---
Demographics + + + | Address | [address] | | | [place] [address] | + + + | Home Phone | | + + + | Preferred Language | Unknown | + + + | Marital Status | Single | + + + | Protestant Affiliation | CHR | + + + | Race | White | + + + | Ethnic Group | Not or | + + + Author + + + | Author | [facility] | + + + | Organization | [facility] | + + + | Address | Unknown | + + + | Phone | Unavailable | + + + Support + + + + + | Name | Relationship | Address | Phone | + + + + + | Sarahi Orozco | ECON | [address] | | | | | [place] | | | | | [address] | | + + + + + Care Team Providers + +------+ + | Care Analytical Laboratory Technician Name | Role | Phone | + +------+ + | Dajuan Jerome MD | PCP | | + +------+ + Reason for Visit + + + | Reason | Comments | + + + | Evaluation AND/OR | | | management - new | | | patient | | + + + Consultation (Routine) +--------+--------+ + + + + | Status | Reason | Specialty | Diagnoses / | Referred By | Referred To | | | | | Procedures | Contact | Contact | +--------+--------+ + + + + | Closed | | [facility] Spina | Diagnoses | Betelmaskmarielos, | Cdr Spina | | | | Bifida | Spina | Dajuan Hinson MD | Bifida [address] | | | | | bifida | [place] | [address] [facility] | | | | | without | COUNTY | Mailcode: | | | | | mention of | HEALTH DEPT | [facility] | | | | | hydrocephalu | [address] | [place], [place] | | | | | s, lumbar | [place], | [address] | | | | | region | [place] [address] | Phone: | | | | | Neurogenic | Phone: | [phone] | | | | | bladder, NOS | [phone] | Fax: | | | | | Procedures | Fax: | [phone] | | | | | [place] | [phone] | | | | | | [place],RETROPERI [...] + + | 05/03/ | Office | [facility] at [facility] 7th | Cy Hutson | Spina Bifida without | | 2007 | Visit | Floor [address] | Jr., PT [address] | Mention of | | | | St Mailcode: [facility] | [facility] | Hydrocephalus, | | | | [place], [place] | [place] [address] | Lumbar Region; | | | | [address] | | Equinus Deformity of | | | | [phone] | | Foot, Acquired; | | | | | | Contracture of Ankle | | | | | | and Foot Joint; | | | | | | Monoparesis (HCC) | +--------+---------+ + + + Social History [...] documented as of this encounter Progress Notes Cy Hutson Jr. - 05/08/2008 12:22 PM PDTPHYSICAL THERAPY ADDENDUM [facility] SPINA BIFIDA PROGRAM DATE: 95 PRIMARY CARE PHYSICIAN: Dajuan Jerome MD In my Physical Therapy (PT) report of 05/03/08 I stated that Pete, in ... "December 2004 , ... underwent a right plantar fasciotomy with stripping of the intrinsic musculature and a n anterior tibialis tendon transferred to the dorsum of the midfoot along with lengthening o f flexor hallucis longus and the flexor digitorum longus." Actually Gabriel had complex surgery in December of 2004, but the foot continued to show pro gressive deformity of the right foot. Therefore in 10/22 he had surgery at [facility] with Yehuda Cantrell MD, [facility] Orthopedist, performing the surgery. This consisted of: osteot rose of the medial cuneiform and first metatarsal, with iliac bone grafting; extensor halluci s longus (EHL) tenotomy and tenodesis of the EHL to the Extensor Hallucis Brevis (ECB); ten otomy of the fifth extensor tendon; fusion of the interphalangeal (IP) joint of the great to e; and, release of the plantar fascia. IDALMIS HUTSON, PT, PCS Physical Therapist [facility] Cy Bach Jr. - 05/03/2008 8:47 AM PDTPHYSICAL THERAPY EVALUATION [facility] SPINA BIFIDA PROGRAM DATE: 95 PRIMARY CARE PHYSICIAN: Dajuan Jerome MD REASON FOR VISIT: Annual evaluation for management consultation, per guidelines for care a ccording to the Spina Bifida Association. BACKGROUND AND DIAGNOSES: Pete attended clinic today, accompanied by his father Pete is [age] years of age and has lumbosacral lipomyelomeningocele with isolated subtle motor deficits affecting the right foot. At his right foot Pete had developed fixed hindfoot varus deformity with forefoot supin ation and clawing of his toes. In December 2004, he underwent a right plantar fasciotomy wit h stripping of the intrinsic musculature and an anterior tibialis tendon transferred to the dorsum of the midfoot along with lengthening of flexor hallucis longus and the flexor digito rum longus. FAMILY AND PATIENT CONCERNS: Pete and his father reported that they are quite pleased wi th the surgical outcome at his right foot. They both reported no adverse interval changes. Nathan paul report that the right foot wounds are much improved, though they had been present for a very long time. They report that the dorsal strap of his Ankle Foot Orthosis (AFO) is frayin g; father indicated that he would try to go [facility] today to have this fixed. 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 Otherwise, upon further inquiry there was no pain reported and none eviden t. The soreness at the shoulder is focal, limited to the muscle belly of the pectoralis major muscle and not involving the glenohumeral joint or any other associated tissue in any marin r. SERVICES: Gabriel attends [facility] in [place] for orthopedic and orthotic manageme nt. He is not enrolled in any other services. GENERAL OBSERVATIONS AND BEHAVIOR: Pete was awake alert and pleasantly responsive. He to lerates physical examination quite well and complies with requests for activity such as gait and advanced dynamic upright activities. I was able to make an accurate assessment of his s tatus. MUSCULOSKELETAL EXAMINATION: Gabriel has a very nicely aligned right foot though there is st ill diminished ankle flexibility. I measured less than 5 of movement past neutral into eit her plantarflexion and into dorsiflexion, but is foot is in very good position for orthotic management and good control in gait on flat and level surfaces. The metatarsal pad area is h ypertrophic across the plantar surface of the whole foot, and this is where he has two heali ng wounds, under the first and fifth metatarsal heads. They are both almost fully healed. B oth he and his father allege that they were much more significant earlier. I measured a 2 cm leg length discrepancy: ASIS to heel (1 cm., ASIS to medial malleolus) w ith the right leg being shorter. The discrepancy appears to be in the tibial component. His spine is straight in the frontal plane, and showed normal curves and contours in the sagitta l plane. His spine was fully flexible for all excursions, in all segments.And elsewhere Neelam solorio's musculoskeletal examination was entirely benign and normal for age. His range of motio n, alignment and joint integrity were all intact and normal for age. Aside from his midline surgical repair scar there were no anomalous structures. NEUROMOTOR EXAMINATION: Pete has monoparesis in the form of distal weakness in his right lower limb. I did not repeat manual muscle testing. Otherwise his neuromotor examination too was essentially benign and normal for age. His re sting muscle tone is normal throughout, symmetrically and equivalently so in his trunk and a ll four limbs. His reflex integration is complete. There were no long tract signs. He displa ys no abnormal posturing, or any abnormal or adventitious movements. His muscle activation i n his preserved musculature was normal with isolated movement control appropriate for age. A side form the ankle and foot weakness I did not discern any other focal or generalized weakn ess. Instead strength seemed normal in his execution of functionally in his gait and in his performance of advanced dynamic upright activities. There was no tremor or dysmetria or any other cerebellar signs. POSTURAL CONTROL: All of Pete's postural control mechanisms were intact and his balance was functionally effective and appropriate for age. His head righting and accompanying trunc al responses were normal in appearance. Balancing, equilibrium and protective propping were all intact, normal in expression and timing, and functionally effective. Falling was not rep orted as a significant concern. SKIN INTEGRITY: Kandaces skin integrity is intact throughout. His sensation is impaired by his own telling in his right foot but is intact elsewhere. He reports that the mybtoy-wh-f- shoe sensation is much worse (and typically so) with the left foot, suggesting sensory impai rment and consequent skin risk with the right foot. I emphasized this to Pete and his fat her. EQUIPMENT: Pete has a Solid Ankle AFO that fits him well. It is structurally intact and in good repair except for the fraying of the dorsal strap across his ankle. He has been inst ructed to wear the AFO for all of his waking hours. He cannot fit his baseball cleats over t he devices GAIT: Kandaces gait is essentially normal, except for subtle drop-off at end-stance on the right. He runs fast and well, and can perform all manner of advanced dynamic upright activi ties except for those requiring the strong activation of his right ankle-foot musculature. Vikki hinson plays sports competitively. INSTRUCTION: I emphasized that careful and frequent skin inspection is necessary. He has a baseball double header tomorrow and I emphasized the need to check his skin at least between games. ASSESSMENT: Pete is stable with respect to his musculoskeletal system and neuromotor fun ctioning. He has a much better aligned foot, and a well-fitting AFO, though it is in need of some minor strap repair. Pete has significant risk for right foot skin breakdown, given his impaired sensation a nd his activity level. RECOMMENDATIONS: I did not make specific recommendations for PT or related referral. I did recommend return PT Evaluation in this clinic. Because of Pete's status and the risk for adverse change related to the underlying diagnoses I will plan to evaluate him again at the next scheduled full team appointment with the Spina Bifida Program. At that visit I will mart n to repeat manual muscle testing (MMT) for his entire right lower limb. Pete and his father appeared to appreciate these assessments and recommendations. It was a pleasure seeing Pete and his father again today. I will be available to address questions related to this report at [phone]. IDALMIS HUTSON PT, PCS Physical Therapist [facility] documented in this e ncounter Plan of Treatment + + +--------+ + + | Name | Type | Priori | Associated Diagnoses | Order Schedule | | | | ty | | | + + +--------+ + + | [place] [facility] | Procedures | Routin | Spina Bifida | Ordered: 05/05/2008 | | EVALUATION | | e | without Mention of | | | | | | Hydrocephalus, | | | | | | Lumbar Region | | | | | | Equinus Deformity of | | | | | | Foot, Acquired | | | | | | Contracture of Ankle | | | | | | and Foot Joint | | | | | | Monoparesis (HCC) | | + + +--------+ + + documented as of this encounter Visit Diagnoses + + | Diagnosis | + + | Spina bifida without mention of hydrocephalus, lumbar region | + + | Equinus deformity of foot, acquired | + + | Contracture of ankle and foot joint | + + | Monoparesis (HCC) Unspecified monoplegia | + + documented in this encounter
--- OUTSIDE RECORDS SUMMARY | ~2019-10-26 | XMS | Encounter Summary ---
Demographics + + + | Address | [address] | | | [place] [address] | + + + | Home Phone [...] + + + | Author | [facility] | + + + | Organization | [facility] | + + + | Address | Unknown | + + + | Phone | Unavailable | + + + Support + + + + + | Name | Relationship | Address | Phone | + + + + + | Sarahi Orozco | ECON | [address] | | | | | [place] | | | | | [address] | | + + + + + Care Team Providers + +------+ + | Care Moisture Conditioner Operator Name | Role | Phone | + +------+ + PCP | Unavailable | + +------+ + Encounter Details +--------+ + + + + | Date | Type | Department | Care Team | Description | +--------+ + + + + | 07/02/ | Office | [facility] 7th | Marcio, | | | 2004 | Visit-ECX | Floor [address] | MD Reyna [address] | | | | | St Mailcode: [facility] | [facility] | | | | | [facility] [place], [place] | [place], [place] | | | | | [address] | [id number] | | | | | [phone] | | | +--------+ + + + [...] + + + | Blood Pressure | 113/69 | 07/02/2005 1:18 PM | | | | | PDT | | + + + + + | Pulse | 109 | 07/02/2005 1:18 PM | | | | | PDT [...] + + + + | Weight | 28.5 kg (62 lb 13.3 | 07/02/2005 1:18 PM | | | | oz) | PDT | | + + + + + | Height | 134.3 cm (4' 4.87") | 07/02/2005 1:18 PM | | | | | PDT | | + + + + + | Body Mass Index | 15.8 | 07/02/2005 1:18 PM | | | | | PDT | | + + + + + documented in this encounter Plan of Treatment Not on filedocumented as of this encounter Visit Diagnoses Not on filedocumented in this encounter
--- OUTSIDE RECORDS SUMMARY | ~2019-10-26 | XMS | Encounter Summary ---
Demographics + + + | Address | [address] | | | [place] [address] | + + + | Home Phone [...] + + + | Author | [facility] | + + + | Organization | [facility] | + + + | Address | Unknown | + + + | Phone | Unavailable | + + + Support + + + + + | Name | Relationship | Address | Phone | + + + + + | Sarahi Orozco | ECON | [address] | | | | | [place] | | | | | [address] | | + + + + + Care Team Providers + +------+ + | Care Classifications Officer Cc/Cm Name | Role | Phone | + [...] as of this encounter Progress Notes Interface, Site Leasing Agent In - 06/15/2005 1:30 AM PDT [id number] PAM GALAN [facility] Date: 01/14/2005 Pediatric [...] or complications. Queta Lebron P.A.-C. / SALV[place]OR [id number] / [id number] / [id number] / Electronically signed by Queta Lebron 02-07-2005 01:59:40 PM documented i n this encounter Plan of Treatment Not on filedocumented as of this encounter Visit Diagnoses Not on filedocumented in this encounter"
--- OUTSIDE RECORDS SUMMARY | ~2019-10-26 | XMS | Encounter Summary ---
Demographics + + + | Address | [address] | | | [place] [address] | + + + | Home Phone | | + + + | Preferred Language | Unknown | + + + | Marital Status | Single | + + + | Christian Affiliation | CHR | + + + | Race | White | + + + | Ethnic Group | Not or | + + + Author + + + | Author | [facility] | + + + | Organization | [facility] | + + + | Address | Unknown | + + + | Phone | Unavailable | + + + Support + + + + + | Name | Relationship | Address | Phone | + + + + + | Sarahi Orozco | ECON | [address] | | | | | [place] | | | | | [address] | | + + + + + Care Team Providers + +------+ + | Care Proof Inspector Name | Role | Phone | + +------+ + | Dajuan Jerome MD | PCP | | + +------+ + Encounter Details +--------+ + + + + | Date | Type | Department | Care Team | Description | +--------+ + + + + | 08/18/ | Office | [facility] | Report, Outpatient | Progress Note | | 1995 | Visit-Trans | & Rehabilitation | Consultation | | | | cribed | [address] | | | | | | [address] Mailcode: | | | | | | [id number] | | | | | | [place], | | | | | | [place] [address] | | | | | | [phone] | | | +--------+ + + + [...] as of this encounter Progress Notes Interface, Air Hose Coupler In - 01/31/2007 2:48 PM PDT CLINIC DATE: 08/18/96 CLINIC NAME: [facility] BIFIDA [facility] DISCIPLINE: PHYSICAL THERAPY Pete attended clinic today accompanied by both of his parents. 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 At earlier clinic visits there were also descriptions of asymmetry of use with relatively more active use of the left side than the right side, even in the upper extremities. I evaluated Pete today in the company of Nellie Gibson P.T., who is the providing physical therapist through the Early Intervention system. The frequency and intensity of EI service with Pete has not yet been determined as the IFSP is still pending. Pete was awake, alert, and interactive throughout the course of this morning's evaluation. He nicely and readily from his parents for purposes of evaluation. I believe I was able to make an accurate assessment of his status. Musculoskeletal exam of Pete was unremarkable. His range of motion, alignment, and joint integrity are all intact and appropriate for age. Neuromotor exam of Pete was also essentially normal. His resting muscle tone is normal to passive movement and notably symmetric and equivalent throughout. There was no asymmetry of reflex integration, which appears to be normal for his age. There is no evidence of focal weakness in either lower extremity; previously there had been equivocal description of weakness at his right ankle. Indeed today he displayed ready and symmetric postural strategies at his ankles and feet in supported standing. That included dorsiflexion, dorsiflexion with eversion, and vigorous plantar flexion in response to postural disruptions. Pete tends to use a creeping pattern for forward locomotion, and when he does so he always leads with his left lower extremity; that is, he does not readily use a pattern of flexion and extension with the right lower extremity. However, this movement pattern can be facilitated, and when it is the pattern of movement appears normal both in excursion and display of strength. Evoked postural control responses including hip abduction with knee extension can be done in suspending sitting, and these appear to be symmetric when evoked. He sits well when placed, but is not yet fluently able to control transition into and out of sitting. However, he participates normally when facilitated through the movement up to sitting and back to recumbency or into 4-point. He also pulls to stand and when standing at furniture can "cruise". I did not assess him developmentally with a standardized instrument, but from his wide repertoire of spontaneously displayed movement he appears to be functioning at age with respect both to his gross motor and his fine motor development. He reaches for, grasps, manipulates, and releases toys; and exchanges them from one hand to the other. He displays vigorous visual regard of objects in his hands and also displays appropriate mouthing of some of them. Pete then is a boy of 8 months of age who appears to be developing normally with respect to gross motor, fine motor, and postural control development. He does still display very mild suggestion of asymmetry, but this appears to be more of a vestige of earlier asymmetry and possibly the persistence of motor habit than an obligatory neuromotor response. He appears to be appropriately served with respect to his potential therapy and developmental needs by his inclusion in the Early Intervention program. I did not make any specific recommendations regarding additional or different therapeutic services. I will plan to re-evaluate Pete at his next scheduled appointment at the [facility] in [place]. At that time I will review his developmental motor progress and attend again in particular to his history of the mild asymmetry. Raul Zamora Physical Therapist LUC/jose a P nterface, Air Hose Coupler In - 01/31/2007 2:48 PM PDT CLINIC DATE: 08/18/96 CLINIC NAME: [facility] BIFIDA CLINIC [facility] DISCIPLINE: SOCIAL WORK Pete is seven months old, and he is seen for the first time in our [facility] in [place]. The spina bifida was totally unexpected prior to , and the parents have been dealing with the diagnosis, asking questions, getting information, etc. They have also been able to meet another set of parents who have a child with spina bifida. Dr. Umm Shaikh is the child's care mgr. Pete has actually been making some nice progress in his development. The parents still have many questions for the team regarding prognosis; and during the clinic evaluation today, they were able to get some questions answered. They found the team approach to the clinic today to be very helpful. The parents are 25 and 24 years old. This is the first child for them together, but Mother has a child from a previous marriage, age five. The family do have some support in the [place] area, although neither of them grew up in [place]. They are not sure whether they will remain living in [facility] or return to the [facility]. They like the services in [place] and are very appreciative of the help given from the Early Intervention program. We will continue to follow this youngster for evaluations in our clinic, both [facility] and in [place]. Mariposa Kitchen L.C.S.W. Lottery Clerk NELLIE/minnie documented in this encounter Plan of Treatment Not on filedocumented as of this encounter Visit Diagnoses Not on filedocumented in this encounter
--- OUTSIDE RECORDS SUMMARY | ~2019-10-26 | XMS | Encounter Summary ---
Demographics + + + | Address | [address] | | | [place] [address] | + + + | Home Phone | | + + + | Preferred Language | Unknown | + + + | Marital Status | Single | + + + | Tenriism Affiliation | CHR | + + + | Race | White | + + + | Ethnic Group | Not or | + + + Author + + + | Author | [facility] | + + + | Organization | [facility] | + + + | Address | Unknown | + + + | Phone | Unavailable | + + + Support + + + + + | Name | Relationship | Address | Phone | + + + + + | Sarahi Orozco | ECON | [address] | | | | | [place] | | | | | [address] | | + + + + + Care Team Providers + +------+ + | Care Recording Studio Set Up Worker Name | Role | Phone | + +------+ + | No Pcp Per Patient | PCP | Unavailable | + +------+ + Encounter Details +--------+ + + + + | Date | Type | Department | Care Team | Description | +--------+ + + + + | 04/21/ | Ancillary | Registration [id number] | Robert Johnson MD | | | 2006 | Registratio | [facility] | [address] | | | | [address] | [address] Mailcode: [id number] | [place], [place] | | | | | [place], [place] | [address] | | | | | [address] | [phone] | | | | | [phone] | | | +--------+ + + + [...] US KIDNEY & BLADDER | Routin | 04/21/2007 | | Results for this | | | e | 10:22 AM | | procedure are in the | | | | PDT | | results section. | + +--------+ + + + documented in this encounter Results US KIDNEY & BLADDER (04/21/2007 10:22 AM PDT) + + + + + + | Component | Value | Ref Range | Performed | Pathologist | | | | | At | Signature | + + + + + + | US KIDNEY & | Radiologist 1: THOM, | | | | | BLADDER | Morris MARTINULTRASOUND OF | | | | | | THE KIDNEYS AND | | | | | | BLADDER: HISTORY: | | | | | | Neurogenic bladder | | | | | | COMPARISON: 07/02/05 | | | | | | TECHNIQUE:Real-time | | | | | | ultrasound of the | | | | | | kidneys and bladder was | | | | | | performed. | | | | | | FINDINGS:Views of the | | | | | | pelvis demonstrate a | | | | | | normal urinary bladder. | | | | | | Thebladder wall | | | | | | thickness is normal | | | | | | without focal | | | | | | abnormality. | | | | | | Theestimated bladder | | | | | | volume at the beginning | | | | | | of the examination | | | | | | dqb391.7 cc. The | | | | | | patient catheterized the | | | | | | bladder at the | | | | | | conclusionof the study. | | | | | | The postvoid volume | | | | | | measures approximately | | | | | | 5.5 cc.There is no | | | | | | distal ureterectasis. | | | | | | The right kidney is | | | | | | normal in size, cortical | | | | | | echogenicity, | | | | | | andcorticomedullary | | | | | | differentiation. The | | | | | | right kidney measures 8 | | | | | | x4.5 x 4.5 cm, 84.5 cc | | | | | | in volume. There is no | | | | | | focal abnormality | | | | | | orhydronephrosis. The | | | | | | left kidney is normal in | | | | | | size, cortical | | | | | | echogenicity, | | | | | | andcorticomedullary | | | | | | differentiation. The | | | | | | left kidney measures 8.7 | | | | | | x3.8 x 4.5 cm, 77.7 cc | | | | | | in volume. There is no | | | | | | focal abnormality | | | | | | orhydronephrosis. Mild | | | | | | pre-catheterization | | | | | | pelviectasis noted onthe | | | | | | prior study is not seen | | | | | | currently.IMPRESSION: | | | | | | Normal ultrasound of the | | | | | | kidneys and bladder. A | | | | | | written report of the | | | | | | findings was sent with | | | | | | the patient tourology | | | | | | clinic immediately | | | | | | following the study. | | | | + + + + + + + + | Specimen | + + | | + + + +---------+ + + | Performing | Address | City/State/Zipcode | Phone Number | | Organization | | | | + +---------+ + + | [facility] DEPARTMENT OF | | | | | RADIOLOGY | | | | + +---------+ + + documented in this encounter Visit Diagnoses Not on filedocumented in this encounter"
--- OUTSIDE RECORDS SUMMARY | ~2019-10-26 | XMS | Encounter Summary ---
Demographics + + + | Address | [address] | | | [place] [address] | + + + | Home Phone [...] Author + + + | Author | [facility] | + + + | Organization | [facility] | + + + | Address | Unknown | + + + | Phone | Unavailable | + + + Support + + + + + | Name | Relationship | Address | Phone | + + + + + | Sarahi Orozco | ECON | [address] | | | | | [place] | | | | | [address] | | + + + + + Care Team Providers + +------+ + | Care Defence Force Senior Officer Name | Role | Phone | + [...] + + + | Closed | | Pediatric | Diagnoses | Alex, | Luz Maria, | | | | Surgery | Spina | MD Robert | Gabriel Love MD | | | | | bifida | [address] | | | | | | without | [address] | | | | | | mention of | [place], [place] | | | | | | hydrocephalu | [address] | | | | | | s, lumbar | Phone: | | | | | | region | [phone] | | | | | | Neurogenic | Fax: | | | | | | bladder, NOS | [phone] | | | | | | Neurogenic | | | | | | | bowel | | | | | | | Procedures | | | | | | | CONSULT TO | | | | | | | SURGERY - | | | | | | | PEDS | | | +--------+--------+ + + + + Encounter Details +--------+ + + + + | Date | Type | Department | Care Team | Description | +--------+ + + + + | 07/28/ | Hospital | Radiology at [facility] | | | | 2010 | Encounter | [address] | | | | | | Mailcode: [id number] | | | | | | [place] | | | | | | [place], [place] | | | | | | [address] | | | | | | [phone] | | | +--------+ + + + [...] | + +--------+ + + + | DIAGNOSTIC STUDIES | | 07/28/2011 | | Results for this | | | | 12:00 AM | | procedure are in the | | | | PDT | | results section. | + +--------+ + + + documented in this encounter Results DIAGNOSTIC STUDIES (07/28/2011 12:00 AM PDT) + + + | Narrative | Performed At | + + + | | | + + + + + | Transcriptions | + + | Dario Medina - 10/13/2011 11:25 AM PST | + + documented in this encounter Visit Diagnoses + + | Diagnosis | + + | Neurogenic bowel | + + documented in this encounter"
--- OUTSIDE RECORDS SUMMARY | ~2019-10-26 | XMS | Encounter Summary ---
Demographics + + + | Address | [address] | | | [place] [address] | + + + | Home Phone | | + + + | Preferred Language | Unknown | + + + | Marital Status | Single | + + + | Zoroastrian Affiliation | CHR | + + + | Race | White | + + + | Ethnic Group | Not or | + + + Author + + + | Author | [facility] | + + + | Organization | [facility] | + + + | Address | Unknown | + + + | Phone | Unavailable | + + + Support + + + + + | Name | Relationship | Address | Phone | + + + + + | Sarahi Orozco | ECON | [address] | | | | | [place] | | | | | [address] | | + + + + + Care Team Providers + +------+ + | Care Rn Perioperative Name | Role | Phone | + +------+ + PCP | Unavailable | + +------+ + Encounter Details +--------+ + + + + | Date | Type | Department | Care Team | Description | +--------+ + + + + | 03/06/ | Results | [facility] at [facility] | Dave Malik MD | | | 2003 | Only | Floor [address] | [address] | | | | | [address] Mailcode: [facility] | Maritza Ferreira [place], | | | | | [facility] [place], [place] | [place] [address] | | | | | [address] | [phone] | | | | | [phone] | | | +--------+ + + + [...] | US KIDNEY BILATERAL | Routin | 03/06/2004 | | Results for this | | LTD | e | 11:00 AM | | procedure are in the | | | | PDT | | results section. | + +--------+ + + + documented in this encounter Results US KIDNEY BILATERAL (03/06/2004 11:00 AM PDT) + + + + + + | Component | Value | Ref Range | Performed | Pathologist | | | | | At | Signature | + + + + + + | US KIDNEY | Radiologist 1: FERMÍN | | | | | COMPLETE | IVÁN Chris-Radiologist | | | | | | 2: IVÁN KOVACS | | | | | | Matias.RENAL ULTRASOUND: | | | | | | 03/06/2004 Dictated | | | | | | 03/06/2004 COMPARISON: | | | | | | 01/04/2003. | | | | | | INDICATION: Patient | | | | | | with spina bifida and | | | | | | neurogenic bladder. | | | | | | FINDINGS: The kidneys | | | | | | are normal in size, | | | | | | shape, and | | | | | | echogenicity.The right | | | | | | kidney measures 7.6 x | | | | | | 3.5 x 3.4 cm with a | | | | | | volume of 48 cc.The left | | | | | | kidney measures 7.5 x | | | | | | 3.3 x 3.8 cm, with a | | | | | | volume of 49 cc.There | | | | | | are no masses or calculi | | | | | | in either kidney. | | | | | | There is | | | | | | nohydronephrosis. The | | | | | | kidneys are normal in | | | | | | size for the | | | | | | patient'sweight of 24 | | | | | | kg. The bladder appears | | | | | | trabeculated. The | | | | | | prevoid volume is 65 cc. | | | | | | Thepost cath volume | | | | | | is less than 1 cc. | | | | | | IMPRESSION: 1. | | | | | | Trabeculated bladder, | | | | | | consistent with | | | | | | neurogenic bladder. 2. | | | | | | Otherwise normal renal | | | | | | ultrasound. END OF | | | | | | IMPRESSION: | | | | + + + + + + + + | Specimen | + + | | + + + +---------+ + + | Performing | Address | City/State[facility] | Phone Number | | Organization | | | | + +---------+ + + | [facility] DEPARTMENT | | | | | RADIOLOGY | | | | + +---------+ + + documented in this encounter Visit Diagnoses Not on filedocumented in this encounter"
--- OUTSIDE RECORDS SUMMARY | ~2019-10-26 | XMS | Encounter Summary ---
Demographics + + + | Address | [address] | | | [place] [address] | + + + | Home Phone | | + + + | Preferred Language | Unknown | + + + | Marital Status | Single | + + + | Episcopal Affiliation | CHR | + + + [...] [place] | | | | | [address] | | + + + + + Care Team Providers + +------+ + | Care Director Of Advertising Sales Name | Role | Phone | + +------+ + PCP | Unavailable | + +------+ + Encounter Details +--------+ + + + + | Date | Type | Department | Care Team | Description | +--------+ + + + + | 06/01/ | Office | [facility] | Consult, [facility] | Progress Note | | 2001 | Visit-Trans | | | | | [...] as of this encounter Progress Notes Interface, Website Developer In - 07/10/2006 3:09 AM PDTCLINIC DATE: 06/01/2002 CLINIC NAME: [facility] DISCIPLINE: NEUROSURGERY SUBJECTIVE: Pete is a 6-year-old male with a 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 He has been followed routinely in the [facility] since that time. Recently, Pete has been having complaints of low back pain and also pain in the lateral aspect of the left leg just below the fibular head. He describes this pain as occurring occasionally and also associated with numbness over the left lateral thigh. This has been ongoing for the past several months. In addition, he also had a recent urinary tract infection but has had no changes in his urologic function. He continues to be self-catheterized. He has had no evidence of increased frequency. His lower extremity function has also remained stable. He has excellent use of his legs, and he does not require any particular orthosis for ambulation. PHYSICAL EXAMINATION GENERAL: Pete is awake, alert, and appropriately interactive. He readily follows commands. EXTREMITIES: In the lower extremities, he has no discrepancy in leg length, foot length, or calf circumference. He is able to toe walk without difficulty and heel walk without difficulty. There is no significant lateralizing signs notable. DIAGNOSTIC DATA: He underwent an MRI scan at [facility] on May 31, 2002. This reveals the expected postoperative changes associated with the lipomyelomeningocele with tethering at the surgical site. There is a small amount of fat seen dorsally along the cord. There appears to be a very small terminal syrinx as well. In summary, Pete has been complaining of back and leg pain; however, upon questioning today, he denies any back or leg pain at present. He was also fully evaluated by Physical Therapy today who feel that his function of the lower extremities has not changed at all since his last examination 3 months ago. We will be setting Pete for some urologic testing and assuming that that remains normal. I would continue to follow him conservatively. I would like to see him again in 6 months. Certainly, should he have any further complaints of back pain or any changes his neurologic function, then we would see him sooner and consider a spinal cord untethering. Soha Nettles M.D. Police Lieutenant Patrol of Pediatric Neurosurgery [place] [id number] / [id number] / [id number] / Tdocumented in this encounter Plan of Treatment Not on filedocumented as of this encounter Visit Diagnoses Not on filedocumented in this encounter"
--- OUTSIDE RECORDS SUMMARY | ~2019-10-26 | XMS | Encounter Summary ---
Demographics + + + | Address | [address] | | | [place] [address] | + + + | Home Phone [...] Author + + + | Author | [facility] | + + + | Organization | [facility] | + + + | Address | Unknown | + + + | Phone | Unavailable | + + + Support + + + + + | Name | Relationship | Address | Phone | + + + + + | Sarahi Orozco | ECON | [address] | | | | | [place] | | | | | [address] | | + + + + + Care Team Providers + +------+ + | Care Cardiopulmonary Technician Name | Role | Phone | + +------+ + | Dajuan Jerome MD | PCP | | + +------+ + Encounter Details +--------+ + + + + | Date | Type | Department | Care Team | Description | +--------+ + + + + | 12/19/ | DELETED | Preoperative | Consult, | ANESTHESIA/SEDATION | | 2004 | TRANSCRIPTI | Medicine Clinic at | Anesthesia [address] | | | | ON | [facility] 4th Floor [address] [facility] | | | | | [facility] | [place], [place] | | | | | Mailcode: [facility] | [address] | | | | | [facility] | | | | | | and Healing, | | | | | | [facility] 1,4th Floor | | | | | | [place], [place] | | | | | | [address] | | | | | | [phone] | | | +--------+ + + + [...] | + +--------+ + + + | ANESTHESIA/SEDATION | | 2004 | | Results for this | | | | 10:07 AM | | procedure are in the | | | | PST | | results section. | + +--------+ + + + documented in this encounter Visit Diagnoses Not on filedocumented in this encounter"
--- OUTSIDE RECORDS SUMMARY | ~2019-10-26 | XMS | Encounter Summary ---
Demographics + + + | Address | [address] | | | [place] [address] | + + + | Home Phone | | + + + | Preferred Language | Unknown | + + + | Marital Status | Single | + + + | Methodist Affiliation | CHR | + + + [...] [place] | | | | | [address] | | + + + + + Care Team Providers + +------+ + | Care Metal Alloy Scientist Name | Role | Phone | + +------+ + | No Pcp Per Patient | PCP | Unavailable | + +------+ + Encounter Details +--------+ + + + + | Date | Type | Department | Care Team | Description | +--------+ + + + + | 03/09/ | Ancillary | LAB CORE [address] | | | | 2014 | Orders | [address] | | | | | | [place], [place] | | | | | | [address] | | | | | | [phone] | | | +--------+ + + + [...] | + +--------+ + + + | RAINBOW HOLD TUBE - | Routin | 03/09/2015 | Pressure ulcer, | | | RED TOP | e | 2:20 PM | unspecified | | | | | PDT | site(707.00) | | | | | | [ICD-9-CM] | | + +--------+ + + + | CBC AND AUTO DIFF | Routin | 03/09/2015 | Pressure ulcer, | Results for this | | | e | 2:20 PM | unspecified | procedure are in the | | | | PDT | site(707.00) | results section. | | | | | [ICD-9-CM] | | + +--------+ + + + | CBC, WITH | Routin | 03/09/2015 | Pressure ulcer, | Results for this | | DIFFERENTIAL | e | 2:20 PM | unspecified | procedure are in the | | | | PDT | site(707.00) | results section. | | | | | [ICD-9-CM] | | + +--------+ + + + | COMPLETE METABOLIC | Routin | 03/09/2015 | Pressure ulcer, | Results for this | | SET | e | 2:20 PM | unspecified | procedure are in the | | (NA,K,CL,CO2,BUN,CRE | | PDT | site(707.00) | results section. | | AT,GLUC,CA,AST,ALT,B | | | [ICD-9-CM] | | | GLENYS TOTAL,ALK | | | | | | PHOS,ALB,PROT TOTAL) | | | | | + +--------+ + + + | C-REACTIVE PROTEIN | Routin | 03/09/2015 | Pressure ulcer, | Results for this | | | e | 2:20 PM | unspecified | procedure are in the | | | | PDT | site(707.00) | results section. | | | | | [ICD-9-CM] | | + +--------+ + + + | SEDIMENTATION RATE | Routin | 03/09/2015 | Pressure ulcer, | Results for this | | | e | 2:20 PM | unspecified | procedure are in the | | | | PDT | site(707.00) | results section. | | | | | [ICD-9-CM] | | + +--------+ + + + documented in this encounter Results CBC AND AUTO DIFF (03/09/2015 2:20 PM PDT) + + + + + + | Component | Value | Ref Range | Performed | Pathologist | | | | | At | Signature | + + + + + + | WHITE CELL | 7.31 | 4.40 - 11.00 | [facility] | | | COUNT | | K/cu mm | LABORATORY | | | | | | SERVICES, | | | | | | CORE | | + + + + + + | RED CELL | 4.22 (L) | 4.50 - 6.00 | [facility] | | | COUNT | | M/cu mm | LABORATORY | | | | | | SERVICES, | | | | | | CORE | | + + + + + + | HEMOGLOBIN | 12.8 (L) | 13.5 - 17.5 | [facility] | | | | | g/dL | LABORATORY | | | | | | SERVICES, | | | | | | CORE | | + + + + + + | HEMATOCRIT | 37.3 (L) | 41.0 - 53.0 % | [facility] | | | | | | LABORATORY | | | | | | SERVICES, | | | | | | CORE | | + + + + + + | MCV | 88.4 | 80.0 - 96.0 fL | [facility] | | | | | | LABORATORY | | | | | | SERVICES, | | | | | | CORE | | + + + + + + | MCHC | 34.3 | 33.0 - 35.5 | [facility] | | | | | g/dL | LABORATORY | | | | | | SERVICES, | | | | | | CORE | | + + + + + + | RDW SD | 36.2 | 35.1 - 46.3 fL | [facility] | | | | | | LABORATORY | | | | | | SERVICES, | | | | | | CORE | | + + + + + + | PLATELET | 326 | 150 - 400 K/cu | [facility] | | | COUNT | | mm | LABORATORY | | | | | | SERVICES, | | | | | | CORE | | + + + + + + | MPV | 11.0 | 9.7 - 12.3 fL | [facility] [...] + + + + | NEUTROPHIL | 46.4 (L) | 50.0 - 70.0 % | [facility] | | | % | | | LABORATORY | | | | | | SERVICES, | | | | | | CORE | | + + + + + + | LYMPHOCYTE | 41.6 | 18.0 - 42.0 % | [facility] | | | % | | | LABORATORY | | | | | | SERVICES, | | | | | | CORE | | + + + + + + | MONOCYTE % | 9.0 | 3.5 - 9.0 % | [facility] | | | | | | LABORATORY | | | | | | SERVICES, | | | | | | CORE | | + + + + + + | EOS % | 2.2 | 1.0 - 3.0 % | [facility] | | | | | | LABORATORY | | | | | | SERVICES, | | | | | | CORE | | + + + + + + | BASO % | 0.3 | 0.0 - 2.0 % | [facility] | | | | | | LABORATORY | | | | | | SERVICES, | | | | | | CORE | | + + + + + + | IG% | 0.5Comment: Immature | 0.0 - 0.6 % | [...] + + + + | NEUTROPHIL | 3.39 | 1.80 - 7.70 | [facility] | | | # | | K/cu mm | LABORATORY | | | | | | SERVICES, | | | | | | CORE | | + + + + + + | LYMPHOCYTE | 3.04 | 1.00 - 4.80 | [facility] | | | # | | K/cu mm | LABORATORY | | | | | | SERVICES, | | | | | | CORE | | + + + + + + | MONOCYTE # | 0.66 | 0.10 - 0.90 | [facility] | | | | | K/cu mm | LABORATORY | | | | | | SERVICES, | | | | | | CORE | | + + + + + + | EOS # | 0.16 | 0.00 - 0.50 | [facility] | | | | | K/cu mm | LABORATORY | | | | | | SERVICES, | | | | | | CORE | | + + + + + + | BASO # | 0.02 | 0.00 - 0.10 | [facility] | | | | | K/cu mm | LABORATORY | | | | | | SERVICES, | | | | | | CORE | | + + + + + + | IG# | 0.04 (H) | 0.00 - 0.03 | [facility] [...] | + + + + + | [facility] | [address] | [place] [address] | | | SERVICES, CORE | [address] | | | + + + + + RAINBOW HOLD TUBE - RED TOP (03/09/2015 2:20 PM PDT) + + | Specimen | + + | Blood - Blood | + + + + + + + | Performing | Address | City/State/Zipcode | Phone Number | | Organization | | | | + + + + + | [facility] | [address] | [place] [address] | | | SERVICES, CORE | [address] | | | + + + + + C-REACTIVE PROTEIN (03/09/2015 2:20 PM PDT) + + + + + + | Component | Value | Ref Range | Performed | Pathologist | | | | | At | Signature | + + + + + + | C-REACTIVE | 12.4 (H) | <10.0 mg/L | [facility] | [...] and new reporting units as of | [facility] | | 04/19/2014. | LABORATORY | | | SERVICES, CORE | + + + + + + + + | Performing | Address | City/State/Zipcode | Phone Number | | Organization | | | | + + + + + | [facility] | [address] | [place] [address] | | | SERVICES, CORE | [address] | | | + + + + + SEDIMENTATION RATE (03/09/2015 2:20 PM PDT) + +--------+ + + + | Component | Value | Ref Range | Performed | Pathologist | | | | | At | Signature | + +--------+ + + + | SEDIMENTATI | 26 (H) | 0 - 15 mm/hr | [...] | + + + + + | [facility] | [address] | [place] [address] | | | SERVICES, CORE | [address] | | | + + + + + COMPLETE METABOLIC SET (NA,K,CL,CO2,BUN,CREAT,GLUC,CA,AST,ALT,BILI TOTAL,ALK PHOS,ALB,PROT TOTAL) (03/09/2015 2:20 PM PDT) + +---------+ + + + | Component | Value | Ref Range | Performed | Pathologist | | | | | At | Signature | + +---------+ + + + | GLUCOSE, | 91 | 60 - 99 mg/dL | [facility] | | | PLASMA | | | LABORATORY | | | (LAB) | | | SERVICES, | | | | | | CORE | | + +---------+ + + + | BUN, PLASMA | 16 | 6 - 20 mg/dL | [facility] | | | (LAB) | | | LABORATORY | | | | | | SERVICES, | | | | | | CORE | | + +---------+ + + + | CREATININE | 0.71 | 0.70 - 1.30 | [facility] | | | PLASMA | | mg/dL | LABORATORY | | | (LAB) | | | SERVICES, | | | | | | CORE | | + +---------+ + + + | EGFR | >60 | >60 mL/min | [facility] | | | - | | | LABORATORY | | | [place] | | | SERVICES, | | | | | | CORE | | + +---------+ + + + | EGFR NON | >60 | >60 mL/min | [facility] | | | -EDGARDO | | | LABORATORY | | | RICAN | | | SERVICES, | | | | | | CORE | | + +---------+ + + + | SODIUM, | 141 | 136 - 145 | [facility] | | | PLASMA | | mmol/L | LABORATORY | | | (LAB) | | | SERVICES, | | | | | | CORE | | + +---------+ + + + | POTASSIUM, | 3.5 | 3.4 - 5.0 | [facility] | | | PLASMA | | mmol/L | LABORATORY | | | (LAB) | | | SERVICES, | | | | | | CORE | | + +---------+ + + + | CHLORIDE, | 106 | 97 - 108 mmol/L | [facility] | | | PLASMA | | | LABORATORY | | | (LAB) | | | SERVICES, | | | | | | CORE | | + +---------+ + + + | TOTAL CO2, | 29 | 21 - 32 mmol/L | [facility] | | | PLASMA | | | LABORATORY | | | (LAB) | | | SERVICES, | | | | | | CORE | | + +---------+ + + + | CALCIUM, | 8.9 | 8.6 - 10.2 | [facility] | | | PLASMA | | mg/dL | LABORATORY | | | (LAB) | | | SERVICES, | | | | | | CORE | | + +---------+ + + + | BILIRUBIN | 0.2 (L) | 0.3 - 1.2 mg/dL | [facility] | | | TOTAL | | | LABORATORY | | | | | | SERVICES, | | | | | | CORE | | + +---------+ + + + | TOTAL | 6.7 | 6.4 - 8.2 g/dL | [facility] | | | PROTEIN, | | | LABORATORY | | | PLASMA | | | SERVICES, | | | (LAB) | | | CORE | | + +---------+ + + + | ALBUMIN, | 3.0 (L) | 3.5 - 4.7 g/dL | [facility] | | | PLASMA | | | LABORATORY | | | (LAB) | | | SERVICES, | | | | | | CORE | | + +---------+ + + + | ALK PHOS | 71 | 53 - 128 U/L | [facility] | | | | | | LABORATORY | | | | | | SERVICES, | | | | | | CORE | | + +---------+ + + + | AST(SGOT) | 10 | <=41 U/L | [facility] | | | | | | LABORATORY | | | | | | SERVICES, | | | | | | CORE | | + +---------+ + + + | ALT (SGPT) | 16 | <=60 U/L | [facility] | | | | | | LABORATORY | | | | | | SERVICES, | | | | | | CORE | | + +---------+ + + + | ANION | 8 | 4 - 11 mmol/L | [facility] | | | GAP(ALB | | | LABORATORY | | | CORRECTED) | | | SERVICES, | | | | | | CORE | | + +---------+ + + + | POTASSIUM | No Hemo | | [facility] | | | CMNT | | | LABORATORY | | | | | | SERVICES, | | | | | | CORE | | + +---------+ + + + | BILI T CMNT | No Hemo | | [facility] | | | | | | LABORATORY | | | | | | SERVICES, | | | | | | CORE | | + +---------+ + + + | AST CMNT | No Hemo | | [facility] | | | | | | LABORATORY | | | | | | SERVICES, | | | | | | CORE | | + +---------+ + + + | ANION GAP | 6 | mmol/L | [facility] | | | | | | LABORATORY | | | | | | SERVICES, | | | | | | CORE | | + +---------+ + + + + + | Specimen | + + | Blood - Blood | + + + + + | Narrative | Performed At | + + + | GFR is estimated using the MDRD equation recommended by the | [facility] | | National Kidney Disease Education Program. Estimated GFR | LABORATORY | | Interpretive Information: <60 mL/min/1.73 sq m | SERVICES, CORE | | Chronic Kidney Disease <15 mL/min/1.73 sq m | | | Kidney Failure Estimated GFR greater that 60 mL/min/1.73 sq m is of | | | limited clinical value. The MDRD equation is not valid in the | | | following situations: - Patients under 18 years of age - Severe | | | malnutrition or obesity - Vegetarian diet - Rapidly changing kidney | | | function | | + + + + + + + + | Performing | Address | City/State/Zipcode | Phone Number | | Organization | | | | + + + + + | [facility] | [address] | [place] [address] | | | SERVICES, CORE | [address] | | | + + + + + documented in this encounter Visit Diagnoses + + | Diagnosis | + + | Pressure ulcer, unspecified site(707.00) Pressure ulcer, unspecified site | + + documented in this encounter"
--- OUTSIDE RECORDS SUMMARY | ~2019-10-26 | XMS | Encounter Summary ---
Demographics + + + | Address | [address] | | | [place] [address] | + + + | Home Phone | | + + + | Preferred Language | Unknown | + + + | Marital Status | Single | + + + | Gnosticist Affiliation | CHR | + + + | Race | White | + + + | Ethnic Group | Not or | + + + Author + + + | Author | [facility] | + + + | Organization | [facility] | + + + | Address | Unknown | + + + | Phone | Unavailable | + + + Support + + + + + | Name | Relationship | Address | Phone | + + + + + | Sarahi Orozco | ECON | [address] | | | | | [place] | | | | | [address] | | + + + + + Care Team Providers + +------+ + | Care Circle Shear Operator Name | Role | Phone | + +------+ + PCP | Unavailable | + +------+ + Encounter Details +--------+ + + + + | Date | Type | Department | Care Team | Description | +--------+ + + + + | 11/01/ | Document-Sc | UNKNOWN DEPARTMENT | Unknown . | | | 2013 | anned | [address] | | | | | | [address] | | | | | | [place], [place] | | | | | | [address] | | | +--------+ + + + [...] + + | DIAGNOSTIC STUDIES | | 11/15/2009 | | Results for this | | | | 12:00 AM | | procedure are in the | | | | PST | | results section. | + +--------+ + + + documented in this encounter Results DIAGNOSTIC STUDIES (11/15/2009 12:00 AM PST) + + + | Narrative | Performed At | + + + | | | | | | + + + + + | Procedure Note | + + | Dario Medina - 11/01/2014 3:41 PM PST | + + documented in this encounter Visit Diagnoses Not on filedocumented in this encounter"
--- OUTSIDE RECORDS SUMMARY | ~2019-10-26 | XMS | Encounter Summary ---
Demographics + + + | Address | [address] | | | [place] [address] | + + + | Home Phone | | + + + | Preferred Language | Unknown | + + + | Marital Status | Single | + + + | Jainism Affiliation | CHR | + + + | Race | White | + + + | Ethnic Group | Not or | + + + Author + + + | Author | [facility] | + + + | Organization | [facility] | + + + | Address | Unknown | + + + | Phone | Unavailable | + + + Support + + + + + | Name | Relationship | Address | Phone | + + + + + | Sarahi Orozco | ECON | [address] | | | | | [place] | | | | | [address] | | + + + + + Care Team Providers + +------+ + | Care Water Filterer Helper Name | Role | Phone | + +------+ + | Umm Kaufman MD | PCP | | + +------+ + Encounter Details +--------+ + + + + | Date | Type | Department | Care Team | Description | +--------+ + + + + | 07/16/ | Telephone | Pediatric Surgery | Laurel Leal, | | | 2010 | | at [facility] [address] | [address] | | | | | Lacy Smith Mailcode: | | | | | | [address] | | | | | | [place], [place] | | | | | | [address] | | | | | | [phone] | | | +--------+ + + + [...]
--- OUTSIDE RECORDS SUMMARY | ~2019-10-26 | XMS | Encounter Summary ---
Demographics + + + | Address | [address] | | | [place] [address] | + + + | Home Phone [...] + + + | Author | [facility] | + + + | Organization | [facility] | + + + | Address | Unknown | + + + | Phone | Unavailable | + + + Support + + + + + | Name | Relationship | Address | Phone | + + + + + | Sarahi Orozco | ECON | [address] | | | | | [place] | | | | | [address] | | + + + + + Care Team Providers + +------+ + | Care Child Custody Evaluator Name | Role | Phone | + +------+ + PCP | Unavailable | + +------+ + Encounter Details +--------+ + + + + | Date | Type | Department | Care Team | Description | +--------+ + + + + | 03/21/ | Results | [facility] at [facility] | Dave Malik MD | | | 1997 | Only | Floor [address] | [address] | | | | | [address] Mailcode: [facility] | Maritza Ferreira [place], | | | | | [facility] [place], [place] | [place] [address] | | | | | [address] | [phone] | | | | | [phone] | | | +--------+ + + + [...] | US KIDNEY BILATERAL | Routin | 03/21/1998 | | Results for this | | | e | 5:00 PM | | procedure are in the | | | | PDT | | results section. | + +--------+ + + + documented in this encounter Results US KIDNEY BILATERAL (03/21/1998 5:00 PM PDT) + + + + + + | Component | Value | Ref Range | Performed | Pathologist | | | | | At | Signature | + + + + + + | US KIDNEY | Radiologist 1: | | | | | BILATERAL | CHE PLUMMER, | | | | | | M.D.-Radiologist 2: | | | | | | CHE PLUMMER, | | | | | | M.D.BILATERAL RENAL | | | | | | ULTRASOUND: 03/21/98 | | | | | | Dictated: 03/21/98 | | | | | | COMPARISON FILMS: | | | | | | Comparison is made | | | | | | with 02/16/96. FINDINGS: | | | | | | The right kidney | | | | | | measures approximately | | | | | | 6.3 x 2.9 x 3.2 cm,with | | | | | | a calculated volume of | | | | | | approximately 30 cc. | | | | | | This is | | | | | | atapproximately the 50th | | | | | | percentile for the | | | | | | patient's weight. The | | | | | | leftkidney measures | | | | | | approximately 6.2 x 3.2 | | | | | | x 3.4 cm, with an | | | | | | estimatedvolume of | | | | | | approximately 35 cc. | | | | | | This also is | | | | | | approximately at the | | | | | | 50thpercentile for the | | | | | | patient's weight. The | | | | | | kidneys are normal | | | | | | inechotexture and | | | | | | configuration. The | | | | | | collecting systems are | | | | | | mildlyprominent | | | | | | bilaterally. The right | | | | | | pelvis measures | | | | | | approximately 0.5cm, and | | | | | | the left measures | | | | | | approximately 0.3 cm. | | | | | | The ureters are | | | | | | notvisualized. The | | | | | | cortical thickness is | | | | | | within normal | | | | | | limitsbilaterally. The | | | | | | bladder measures | | | | | | approximately 5.3 x 3.5 | | | | | | x 7.5 cm, with | | | | | | anestimated volume of 72 | | | | | | cc. The bladder | | | | | | shape, wall thickness, | | | | | | andwall character are | | | | | | within normal limits. | | | | | | There is no evidence | | | | | | ofureterocele. As the | | | | | | patient was unable to | | | | | | void, no postvoid study | | | | | | wasperformed. | | | | | | IMPRESSION: Mildly | | | | | | prominent renal pelves | | | | | | bilaterally without | | | | | | interval changefrom the | | | | | | prior study. The study | | | | | | is otherwise within | | | | | | normal limits. END OF | | | | | | IMPRESSION: | | | | + + + + + + + + | Specimen | + + | | + + + +---------+ + + | Performing | Address | City/State/Zipcode | Phone Number | | Organization | | | | + +---------+ + + | [facility] DEPARTMENT OF | | | | | RADIOLOGY | | | | + +---------+ + + documented in this encounter Visit Diagnoses Not on filedocumented in this encounter"
--- OUTSIDE RECORDS SUMMARY | ~2019-10-26 | XMS | Encounter Summary ---
Demographics + + + | Address | [address] | | | [place] [address] | + + + | Home Phone | | + + + | Preferred Language | Unknown | + + + | Marital Status | Single | + + + | Mu-Ism Affiliation | CHR | + + + | Race | White | + + + | Ethnic Group | Not or | + + + Author + + + | Author | [facility] | + + + | Organization | [facility] | + + + | Address | Unknown | + + + | Phone | Unavailable | + + + Support + + + + + | Name | Relationship | Address | Phone | + + + + + | Sarahi Orozco | ECON | [address] | | | | | [place] | | | | | [address] | | + + + + + Care Team Providers + +------+ + | Care Systems Mechanic Name | Role | Phone | + [...] | | | bifida | [place] | [facility] | | | | | without | COUNTY | Mailcode: | | | | | mention of | HEALTH DEPT | [facility] | | | | | hydrocephalu | [address] [place] [address] | [place], [place] | | | | | s, lumbar | [place], | [address] | | | | | region | [place] [address] | Phone: | | | | | Neurogenic | Phone: | [phone] | | | | | bladder, NOS | [phone] | Fax: | | | | | Procedures | Fax: | [phone] | | | | | [place] | [phone] | | | | | | US,RETROPERI | | | | | | | T, | | | | | | | B-SCAN/REAL | | | | | | | TIME,COMPLET | | | | | | | E [place] | | | | | | | OCCUPATIONAL | | | | | | | THERAPY | | | | | | | EVALUATION | | | | | | | annual sb | | | | | | | eval MM, | | | | | | | WF, EA ([place]) | | | | | | | + OT added | | | | | | | on97 | | | +--------+--------+ + + + + Encounter Details +--------+---------+ + + + | Date | Type | Department | Care Team | Description | +--------+---------+ + + + | 06/06/ | Office | [facility] at [facility] 7th | Anita Lopez, | Spina Bifida without | | 2008 | Visit | Floor [address] | PNP [address] [facility] | Mention of | | | | St Mailcode: [facility] | [address] | Hydrocephalus, | | | | [facility] [place], [place] | [place], [place] | Lumbar Region; | | | | [address] | [address] | Neurogenic Bladder, | | | | [phone] | [phone] | NOS | | | | | [...] documented as of this encounter Progress Notes Jacoby Jackson MD - 06/06/2009 3:29 PM PDT [facility] Urology Ambulatory Treatment Record Pete Orozco is here today for routine urologic follow-up. 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 OXYBUTYNIN CHLORIDE 5 MG ORAL TAB 1 tablet TID Sodium Fluoride 0.25 (0.55) mg Oral CHEW None Entered Physical Exam: Vitals: There were no vitals taken for this visit. Abdomen: soft, non-tender : circumcised phallus, meatus orthotopic, testes descended bilateral. No breakdown Back: well healed surgical scar. Skin: draining sinus over right foot Radiology (include date): Urodynamics: None [facility]: No [facility] Renal/bladder ultrasound (06/06/09): The kidneys are normal in location, morphology, and ech ogenicity. The right kidney measures 8.9 x 4.2 x 4.4 cm and has a volume of 85 ml. The lef t kidney measures 9.5 x 4.1 x 4.5 cm and has a volume of 91 ml. Renal volumes are normal fo r the patient's weight of 46 kg. No stones, cysts, or masses are seen. A small amount of l eft renal pelvocaliceal fluid is present which resolves on postcatheterization images. There is no right pelvocaliectasis, and no ureterectasis is see n on either side. The bladder wall is thickened and trabeculated, as previously seen. The bladder also conta ins layering debris. Pre-catheterization bladder volume measures 237 ml. Post-catheterization bladder volume measures 30 ml. 1. Small amount of left renal pelvocaliceal fluid which resolves on postcatheterization im ages. This may be physiologic, although vesicoureteral reflux cannot be excluded by ultraso und. Otherwise unremarkable appearance of kidneys. 2. Neurogenic bladder with debris. Laboratory (include date): Lab Results Component Value Date/Time URINECOLORPOC yellow 06/06/09 3:32 PM URINEAPPEARANCEPOC sl. cloudy 06/06/09 3:32 PM URINELEPOC mod 06/06/09 3:32 PM URINENITRITEPOC neg 06/06/09 3:32 PM URINEUROBILIPOC 0.2 06/06/09 3:32 PM URINEPROTEINPOC trace 06/06/09 3:32 PM URINEPHPOC 6.5 06/06/09 3:32 PM URINEBLOODPOC trace 06/06/09 3:32 PM URINESPECGRAVPOC 1.025 06/06/09 3:32 PM URINEKETONESPOC neg 06/06/09 3:32 PM URINEBILIPOC neg 06/06/09 3:32 PM URINEGLUCOSEPOC neg 06/06/09 3:32 PM Assessment: Code Name 741.93 Spina Bifida without Mention of Hydrocephalus, Lumbar Region 596.54 Neurogenic Bladder, NOS Plan: -Renal ultrasound today re-assuring. The trace fluid in the left pelvis is not new and res olves with voiding. -I again stressed the importance of CIC 4-5x per day. 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 He would like to try a 12F catheter. I told him to call for a prescription if this works better for him. -His ditropan use is intermittent. We will try the Oxytrol patch (twice weekly) in an atte mpt to improve compliance and reduce side effects. -RTC in 3 months to re-assess. If he is still leaking with the oxytrol patch, we will sche dule him for UDS. documented in this enc ounter Plan of Treatment Not on filedocumented as of this encounter Visit Diagnoses + + | Diagnosis | + + | Spina bifida without mention of hydrocephalus, lumbar region | + + | Neurogenic bladder, NOS | + + documented in this encounter"
--- OUTSIDE RECORDS SUMMARY | ~2019-10-26 | XMS | Encounter Summary ---
Demographics + + + | Address | [address] | | | [place] [address] | + + + | Home Phone [...] [place] | | | | | [address] | | + + + + + Care Team Providers + +------+ + | Care Leaded Glass Installer Name | Role | Phone | + +------+ + | Dajuan Jerome MD | PCP | | + +------+ + Reason for Visit + + + | Reason | Comments | + + + | Return Patient | | + + + | Spina bifida | | + + + Consultation (Routine) +--------+--------+ + + + + | Status | Reason | Specialty | Diagnoses / | Referred By | Referred To | | | | | Procedures | Contact | Contact | +--------+--------+ + + + + | Closed | | [facility] Spina | Diagnoses | Betlinski, | Cdr Spina | | | | Bifida | Spina | Dajuan Arguelles MD | Bifida 707 | | | | | bifida | [place] | [facility] | | | | | without | COUNTY | Mailcode: | | | | | mention of | HEALTH DEPT | [facility] | | | | | hydrocephalu | [address] | [place], [place] | | | | | s, lumbar | [place], | [address] | | | | | region | [place] [address] | Phone: | | | | | Neurogenic | Phone: | [phone] | | | | | bladder, NOS | [phone] | Fax: | | | | | Procedures | Fax: | [phone] | | | | | NM | [phone] | | | | | | US,RETROPERI | | | | | | | T, | | | | | | | B-SCAN/REAL | | | | | | | TIME,COMPLET | | | | | | | E NM | | | | | | | [...] Description | +--------+---------+ + + + | 09/12/ | Office | [facility] | Robert Johnson MD | Lipomyelomeningocele | | 2008 | Visit | [address] | [address] | ; Neurogenic | | | | St Mailcode: [facility] | [place], [place] | Bladder, NOS; | | | | [place], [place] | [address] | Neurogenic Bowel; | | | | [address] | [phone] | Pes Cavus, right; | | | | [phone] | | Decubitus Ulcer of | | | | | | Heel; Leg Length | | | | | | Discrepancy, right; | | | | | | Adjustment Disorder | | | | | | with Academic | | | | | | Inhibition | +--------+---------+ + + + Social History [...] + + + | Blood Pressure | 111/69 | 09/12/2009 10:35 AM | | | | | PDT | | + + + + + | Pulse | 54 | 09/12/2009 10:35 AM | | | | | PDT | [...] + + + + | Weight | 48.2 kg (106 lb 4.2 | 09/12/2009 10:35 AM | with cast. | | | oz) | PDT | | + + + + + | Height | 164.7 cm (5' 4.84") | 09/12/2009 10:35 AM | with cast. | | | | PDT | | + + + + + | Body Mass Index | 17.77 | 09/12/2009 10:35 AM | | | | | PDT | | + + + + + documented in this encounter Progress Notes Robert Johnson MD - 09/12/2009 12:43 PM PDT[facility] Tin Container Straightener Chief Complaint: A 13-year-old returns to [facility] Clinic for followup on complex prob lems. Primary Provider: Dajuan Jerome MD, [facility] [address], [place] [address]. HPI: We last saw Pete for a full evaluation on June 11, 2009. We had him return early to address decubitus ulcer of the foot, bowel and bladder continence, and a PT evaluation, w hich could not be provided at the last visit. He is accompanied today by mother. Lipomyelomeningocele: Essentially stable. Normal function on the left. On the right, raman sotelo is intact down to the knee, and the right calf and foot are hypoplastic. He had unte thering surgery for the second time in 2002. Orthopedics: He had a third foot surgery as scheduled since we saw him last time. This wa s addressed for wedge-shaping and pinning of the hammertoe. The mother is pleased with the outcome as seen during two cast changes; he is wearing a cast still, after surgery in late 2008. Mother notes that the hammertoe is now resolved, and the 5th toe has been fused in a good positioning. Decubitus Ulcers: On that same right foot, he had decubitus ulcers on the plantar surface, under the MP joint, both under the metatarsal heads of the 1st and 5th toes. Mother report s that when the casts were off on the last 2 occasions, she noted that these were improving. Improvement would probably be from repositioning of the pes cavus deformity of the foot wi th pressure taken off the two points. I will assume therefore that these will continue to i mprove and be maintained with a good constructed AFO after the final cast is finished early next month. Neurogenic Bladder: Though arrangements have been made and it is covered on his Individual ized Educational Plan (IEP), to provide time and space and facilities, Pete admits that eliseo arguelles is not cathing at all at school this year. He does have time during the hour for lunch, a nd can use the faculty bathroom, where he has a cupboard with stored equipment. He, therefo re, is only cathing, at most, first thing in the morning, after school, and bedtime. He req uires one, preferably two more episodes per day. I, therefore, implore him to do one additi onal cathing as does the Pediatric Urology nurse practitioner. He requests a specifically r eward for doing so, a piece of candy; we negotiate that he provide himself that reward for 1 week after restarting this procedure at school time. Urinalysis today reveals protein 30, trace blood, otherwise entirely negative with specific gravity 1.010. Last renal ultrasound was at the last visit. Neurogenic Bowel: He has not carried out the recommended regularity of sitting on the comm ode every day. I recommend this be done in the evening at bath time. I also recommend that he take 1-2 tablespoons of added fiber in the form of Benefiber, dissolved in liquid once d aily at the same time. This could be done either at breakfast or in the evening. Hopefully , this will assist his bowel continence. In the meantime, he continues to wear pull-ups; and hopefully, these can be covered by [facility] his current insurance through mother's work or his application to [facility], which mother fee ls he would be eligible for. [place]/Education: At the last visit, he had additional testing, which revealed visua l motor integration standard score at 7 years 6 months levels; visual perceptual skills at 1 1-1/2 years skills, and motor coordination at 12 years 2 months skills (average for age) in the then 13-year-old boy. Physical Exam: Wt=48.2 ikg (45%), L=164.7 cm, 65%; BMI=25%, Head circ=56.0 cm (75%). OK=054/69, P=54. G eneral appearance: alert, oriented, cooperative, appropriate. A 13-year-old male, no somati c variations; no distress or discomfort; mucous membranes are pink and moist, skin and hair are of normal texture and turgor. Conversation is appropriate and on subject. He is approp riately understanding of his condition. HEENT: Normocephalic. EOM's are full and symmetri elizabeth, and fundoscopy reveals normal disk cupping on the left; would not remain still for exam ination on the right. The neck is supple. Chest and Back: There is a well-healed midline s urgical scar over the lumbosacral region without hirsutism, drainage, or paresthesia; the in tergluteal crease is asymmetrical to the left, and there is a slight bulge in the right glut eus area from an apparent subcutaneous lipoma. The abdomen is without organomegaly, masses, tenderness, or guarding. Orthopedics: There is a cast in place on the right foot, toes pi nk and warm. Neurological: Cranial nerves 2 through 12 are intact. Normal function in the upper extremities. DTRs are 2+ and symmetrical throughout. 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 Otherwise he should attend every day. -Urology will schedule him for Urodynamics to evaluate true bladder function; has never bee n done. R/o high tone vs. low tone leaking. -We strongly recommend he do urinary catheterization at noon at school. He will reward him self with a piece of candy once daily for a week. Total catheterization at least 4x/day, pr eferably 5. -We again recommend and discussed that he sit on the commode every day at same time, e.g., evening bath time. Regularity is the most important step toward bowel social continence. -We again recommend adding daily fiber to his diet, which could be 1-2 Tbsp Benefiber disso lved in liquid daily at same time, e.g., q HS. -I recommend counseling to help his adjustment. I will raise his case at the [facility] 09/21/09. Hopefully there is a therapist counselor in the [facility] who can help him with cognitive therapy for a few sessions. -I spent 30 minutes in direct encounter with this patient, >50% counseling about coping and self-care and/or coordination of care. -Return in 6 months for next full team evaluation and review. Robert Johnson MD docu mented in this encounter Plan of Treatment Not on filedocumented as of this encounter Procedures + +--------+ + + + | Procedure Name | Priori | Date/Time | Associated Diagnosis | Comments | | | ty | | | | + +--------+ + + + | UA 10 DIP POC | Routin | 09/12/2009 | Neurogenic | Results for this | | | e | 2:13 PM | Bladder, NOS | procedure are in the | | | | PDT | Neurogenic Bowel | results section. | + +--------+ + + + documented in this encounter Results UA DIPSTICK ONLY W/O MICRO, POC (09/12/2009 2:13 PM PDT) + + + + + + | Component | Value | Ref Range | Performed | Pathologist | | | | | At | Signature | + + + + + + | COLOR (UA | yellow | | [facility] | | | DIP), POC | | | OF CARE | | | | | | TESTS | | + + + + + + | APPEARANCE | turbid | | [facility] | | | (UA DIP), | | | OF CARE | | | POC | | | TESTS | | + + + + + + | LEUKOCYTES | large | Negative | [facility] | | | (UA DIP), | | | OF CARE | | | POC | | | TESTS | | + + + + + + | NITRITES | negative | Negative | [facility] | | | (UA DIP), | | | OF CARE | | | POC | | | TESTS | | + + + + + + | UROBILINOGE | 0.2 | 0.2 HEATHER | [facility] | | | N (UA DIP), | | UNITS | OF CARE | | | POC | | | TESTS | | + + + + + + | PROTEIN (UA | 30 | Negative to | [facility] | | | DIP), POC | | Trace mg/dL | OF CARE | | | | | | TESTS | | + + + + + + | PH (UA | 7.5 | 5 - 8 | [facility] | | | DIP), POC | | | OF CARE | | | | | | TESTS | | + + + + + + | BLOOD (UA | trace | Negative | [facility] | | | DIP), POC | | | OF CARE | | | | | | TESTS | | + + + + + + | SPECIFIC | 1.010 | 1.005 - 1.03 | [facility] | | | GRAVITY (UA | | | OF CARE | | | DIP), POC | | | TESTS | | + + + + + + | KETONES (UA | negative | Negative mg/dL | [facility] | | | DIP), POC | | | OF CARE | | | | | | TESTS | | + + + + + + | BILIRUBIN | negative | Negative | [facility] | | | (UA DIP), | | | OF CARE | | | POC | | | TESTS | | + + + + + + | GLUCOSE (UA | negative | Negative to | [facility] | | | DIP), POC | | Trace mg/dL | OF CARE | | | | | | TESTS | | + + + + + + + + | Specimen | + + | Urine | + + + + + + + | Performing | Address | City/State/Zipcode | Phone Number | | Organization | | | | + + + + + | [facility] | [address] | [place], [place] | | | [facility] | [address] | [address] | | | TESTS | | | | + + + + + | [facility] | [address] | [place], [place] | | | TESTS | [facility] | [address] | | + + + + + documented in this encounter Visit Diagnoses + + | Diagnosis | + + | Lipomyelomeningocele Spina bifida without mention of hydrocephalus, lumbar region | + + | Neurogenic bladder, NOS | + + | Neurogenic bowel | + + | Pes Cavus, right Talipes cavus | + + | Decubitus ulcer of heel Pressure ulcer, heel | + + | Leg Length Discrepancy, right Unequal leg length (acquired) | + + | Adjustment disorder with academic inhibition Specific academic or work inhibition as | | adjustment reaction | + + documented in this encounter
--- OUTSIDE RECORDS SUMMARY | ~2019-10-26 | XMS | Encounter Summary ---
Demographics + + + | Address | [address] | | | [place] [address] | + + + | Home Phone | | + + + | Preferred Language | Unknown | + + + | Marital Status | Single | + + + | Druze Affiliation | CHR | + + + | Race | White | + + + | Ethnic Group | Not or | + + + Author + + + | Author | [facility] | + + + | Organization | [facility] | + + + | Address | Unknown | + + + | Phone | Unavailable | + + + Support + + + + + | Name | Relationship | Address | Phone | + + + + + | Sarahi Orozco | ECON | [address] | | | | | [place] | | | | | [address] | | + + + + + Care Team Providers + +------+ + | Care Dry Ice Maker Name | Role | Phone | + [...] W | | | | ON | [facility] 4th Floor [address] [facility] | | | | | [facility] | [place], [place] | | | | | Mailcode: [facility] | [address] | | | | | [facility] | | | | | | and Healing, | | | | | | [facility] 1,4th Floor | | | | | | [place], [place] | | | | | | [address] | | | | | | [phone] | | | +--------+ + + + [...]
--- OUTSIDE RECORDS SUMMARY | ~2019-10-26 | XMS | Encounter Summary ---
Demographics + + + | Address | [address] | | | [place] [address] | + + + | Home Phone | | + + + | Preferred Language | Unknown | + + + | Marital Status | Single | + + + | Rastafarian Affiliation | CHR | + + + [...] [place] | | | | | [address] | | + + + + + Care Team Providers + +------+ + | Care Call Manager Name | Role | Phone | + +------+ + | Umm Kaufman MD | PCP | | + +------+ + Encounter Details +--------+ + + + + | Date | Type | Department | Care Team | Description | +--------+ + + + + | 01/29/ | Resaw Tailer | [facility] 7th | Ngoc Fish PNP | Lipomyelomeningocele | | 2011 | | Floor [address] | [address] | (Primary Dx) | | | | St Mailcode: [facility] | [place], [place] | | | | | [facility] [place], [place] | [address] | | | | | [address] | [phone] | | | | | [phone] | | | +--------+ + + + [...] lumbar | | region | + + documented in this encounter"
--- OUTSIDE RECORDS SUMMARY | ~2019-10-26 | XMS | Encounter Summary ---
Demographics + + + | Address | [address] | | | [place] [address] | + + + | Home Phone [...] Author + + + | Author | [facility] | + + + | Organization | [facility] | + + + | Address | Unknown | + + + | Phone | Unavailable | + + + Support + + + + + | Name | Relationship | Address | Phone | + + + + + | Sarahi Orozco | ECON | [address] | | | | | [place] | | | | | [address] | | + + + + + Care Team Providers + +------+ + | Care Middleware Developer Name | Role | Phone | + +------+ + PCP | Unavailable | + +------+ + Encounter Details +--------+ + + + + | Date | Type | Department | Care Team | Description | +--------+ + + + + | 08/12/ | [facility] | [facility] | Letter, [facility] | Letters | | 2004 | scribed | | | | +--------+ + + [...] as of this encounter Progress Notes Interface, Medicine Worker In - 06/15/2005 7:41 AM PDT [id number] 07/31/2004 08/12/2004 [id number] PAM Escobar [facility] [address] [place] [address] August 12, 2004 Abdulkadir George M.D. [facility] [address] [place] [address] RE: Pete Orozco MR# [id number] George: We care for this 8-year-old boy in the spina bifida program. Recently, he had an evaluation by the psychologist, focusing on school difficulties. The psychologist noted difficulties with visual tracking upward and to the right. Review of our previous notes also brings up the observation that the patient himself stated at our last appointment in February that he is having difficulty seeing the board. Of course, he may have simple visual focusing difficulty. 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 Every person with spina bifida should have an annual evaluation by an tin can feeder to monitor cupping as a sign of increased intracranial pressure or [employer] SALES REPRESENTATIVE shunt failure. I therefore strongly recommend referral to an tin can feeder as soon as possible and annual followup. We would even ask that notes be forwarded to our records. Thank you for your consideration of this matter. Sincerely, Robert Johnson M.D. Developmental Foot Doctor, Director, Spina Bifida Program [id number] cc: WENDY MEDINA [address] [facility] [address] documented i n this encounter Plan of Treatment Not on filedocumented as of this encounter Visit Diagnoses Not on filedocumented in this encounter"
--- OUTSIDE RECORDS SUMMARY | ~2019-10-26 | XMS | Encounter Summary ---
Demographics + + + | Address | [address] | | | [place] [address] | + + + | Home Phone [...] + + + | Author | [facility] | + + + | Organization | [facility] | + + + | Address | Unknown | + + + | Phone | Unavailable | + + + Support + + + + + | Name | Relationship | Address | Phone | + + + + + | Sarahi Orozco | ECON | [address] | | | | | [place] | | | | | [address] | | + + + + + Care Team Providers + +------+ + | Care Heel Scorer Name | Role | Phone | + +------+ + PCP | Unavailable | + +------+ + Encounter Details +--------+ + + + + | Date | Type | Department | Care Team | Description | +--------+ + + + + | 01/08/ | Abstract | [facility] 7th | Nereyda Solares PNP | | | 2005 | | Floor [address] | [address] | | | | | St Mailcode: [address], | | | | | [facility] [place], [place] | [place] [address] | | | | | [address] | [phone] | | | | | [phone] | | | +--------+ + + + [...]
--- OUTSIDE RECORDS SUMMARY | ~2019-10-26 | XMS | Encounter Summary ---
Demographics + + + | Address | [address] | | | [place] [address] | + + + | Home Phone | | + + + | Preferred Language | Unknown | + + + | Marital Status | Single | + + + | Yarsanism Affiliation | CHR | + + + [...] [place] | | | | | [address] | | + + + + + Care Team Providers + +------+ + | Care Sash Clamp Operator Name | Role | Phone | [...] Consultation | | | | cribed | [address] | | | | | | Loop Mailcode: | | | | | | [id number] [facility] | | | | | | [place], | | | | | | [place] [address] | | | | | | [phone] | | | +--------+ + + + [...] as of this encounter Progress Notes Interface, Plastic Manager In - 01/31/2007 2:48 PM PDT CLINIC DATE: 08/18/96 CLINIC NAME: [facility] NEXT STEPS DISCIPLINE: PHYSICAL THERAPY ePte attended clinic today accompanied by both of [...] appointment at the [facility] in [place]. At that time I will review his developmental motor progress and attend again in particular to his history of the mild asymmetry. Raul Zamora Physical Therapist LUC/jose a P nterface, Plastic Manager In - 01/31/2007 2:48 PM PDT CLINIC DATE: 08/18/96 CLINIC NAME: [facility] STEPS DISCIPLINE: SOCIAL WORK Pete is seven months old, and he is seen for the first time in our [facility] in [place]. The spina bifida was totally unexpected prior to , and the parents have been dealing with the diagnosis, asking questions, getting information, etc. They have also been able to meet another set of parents who have a child with spina bifida. Dr. Umm Shaikh is the child's bindery machine setter/set up operator. Pete has actually been making some nice [...] family do have some support in the [place] area, although neither of them grew up in [place]. They are not sure whether they will remain living in [facility] or return to the [facility]. They like the services in [place] and are very appreciative of the help given from the Early Intervention program. We will continue to follow this youngster for evaluations in our clinic, both at the [facility] and in [place]. Mariposa Kitchen L.C.S.W. Shredder Operator NELLIE/minnie documented in this encounter Plan of Treatment Not on filedocumented as of this encounter Visit Diagnoses Not on filedocumented in this encounter
--- OUTSIDE RECORDS SUMMARY | ~2019-10-26 | XMS | Encounter Summary ---
Demographics + + + | Address | [address] | | | [place] [address] | + + + | Home Phone | | + + + | Preferred Language | Unknown | + + + | Marital Status | Single | + + + | Samaritan Affiliation | CHR | + + + [...] [place] | | | | | [address] | | + + + + + Care Team Providers + +------+ + | Care Acid Patroller Name | Role | Phone | + [...] | | bifida | [place] | [address] | | | | | without | COUNTY | Mailcode: | | | | | mention of | HEALTH DEPT | [facility] | | | | | hydrocephalu | [address] | [place], [place] | | | | | s, lumbar | [place], | [address] | | | | | region | [place] [address] | Phone: | | | | | Neurogenic | Phone: | [phone] | | | | | bladder, NOS | [phone] | Fax: | | | | | Procedures | Fax: | [phone] | | | | | DC | [phone] | | | | | | US,RETROPERI | | | | | | | T, | | | | | | | B-SCAN/REAL | | | | | | | TIME,COMPLET | | | | | | | E DC | | | | | | | [...] + + | 09/12/ | Office | [facility] at [facility] 7th | Cy Hutson | Lipomyelomeningocele | | 2008 | Visit | Floor [address] | , PT [address] [facility] | ; Monoparesis (HCC); | | | | St Mailcode: [facility] | [address] | Contracture of | | | | [facility], [place] | [place] [address] | Ankle and Foot | | | | [address] | | Joint; Pes Cavus, | | | | [phone] | | right; Leg Length | | | | | | Discrepancy, right | +--------+---------+ + + + Social History [...] of this encounter Progress Notes Cy Hutson Jr., PT - 09/12/2009 9:37 AM PDTFormatting of this note might be differen t from the original. PHYSICAL THERAPY EVALUATION [facility] SPINA BIFIDA PROGRAM DATE OF SERVICE: 09/12/2009 DATE: 1995 AGE: 13 year 8 month PRIMARY CARE PHYSICIAN: Dajuan JEROME REASON FOR VISIT: Return evaluation for management consultation, per guidelines for care a ccording to the Spina Bifida Association. BACKGROUND AND DIAGNOSES: Pete attended clinic today for evaluation. His mother and a f amily friend accompanied him. My Last Clinic Visit (LCV) with him was 05/03/08. Pete is 13 year 8 month of age. 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 At his right foot Pete had developed fixed hindfoot varus deformity with forefoot supin ation and clawing of his toes. In December 2004, he underwent a right plantar fasciotomy wit h stripping of the intrinsic musculature and an anterior tibialis tendon transferred to the dorsum of the midfoot along with lengthening of flexor hallucis longus and the flexor digito rum longus. On 07/10/09 he underwent another surgical procedure correcting the right foot. Records wer e not available to me but mother described lengthening of the tendoachilles, reduction of th e high arch, and release of the fifth toe's tendons. She reports that the Surgeon (Merary mancilla MD) reported that he was pleased with the reduction obtained from the surgical procedu reIon Freeman's full medical and surgical history is as follows: Patient Active Problem List Diagnoses Code Lipomyelomeningocele 741.93 NEUROGENIC BLADDER, NOS 596.54 NEUROGENIC BOWEL 564.81 DELAYED MILESTONES 783.42 LIPOMA OF OTHER SPECIFIED SITES 214.8 Scoliosis 737.30D Visual Impairment 368.9V Contracture of Ankle and Foot Joint 718.47 Monoparesis 344.5A Pes Cavus, right 754.71B Decubitus Ulcer of Heel 707.07C Past Medical History Diagnosis Date Neurogenic Bladder Neurogenic Bowel 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 Delayed Milestones 1995 Slow academic process. - well below grade level in all areas. Visual Impairment 05/03/2008 Difficulty tracking upward and to the right noted on exam-9-04 Past Surgical History Procedure Date Pr release tethered spinal cord,lumbr 02/20/2003 First repair, release of lipomyelomeningocele 01/1996 Right ankle/foot orthopedic surgery 12/2004 DR. LUNA COTTRELL Right ankel/foot complex orthopedic surgery 10/26/07 DR. MERARY AYALA ([facility]) FAMILY AND PATIENT CONCERNS: Pete reported no adverse interval changes. Mother corrobora rupert this. He is eager to get the cast off, and is expecting that change soon. REPORT OF PAIN: Upon inquiry there was no pain reported and none evident. SERVICES: Pete is not currently involved in any Physical Therapy (PT) services. He is en rolled at [facility] in [place] for orthopedic care and orthotic management. GENERAL OBSERVATIONS AND BEHAVIOR: Pete was awake alert and pleasantly responsive. He chi s a right short leg cast (SLC) in place; the SLC is configured so he can walk on it. He tole rates physical examination quite well and complies with requests for activity such as gait. I was able to make an accurate assessment of his status. MUSCULOSKELETAL EXAMINATION: Pete has a 2 cm leg length discrepancy that I measured at h is LCV, with the right leg being shorter. The discrepancy appeared to be in the tibial compo nent. I could not remeasure that today. Pete's right foot and ankle are inaccessible, being casted. But the foot, grossly appea rs to be in essentially neutral plantigrade position. Elsewhere his musculoskeletal examination is entirely benign and normal for age. His rang e of motion, alignment and joint integrity are intact and normal for age. Vinny[ite the LLD a nd previous report of a dextroscoliosis his spine appears straight in the frontal plane to c linical viewing, with normal curves and contours in the sagittal plane. His spine is fully f lexible for all excursions, in all segments. Aside from his midline surgical repair scar the re are no anomalous structures. NEUROMOTOR EXAMINATION: Pete has monoparesis in the form of distal weakness in his right lower limb. I could not repeat manual muscle testing. Otherwise his neuromotor examination is essentially benign and normal for age. His resting muscle tone in his preserved musculature is normal throughout, symmetrically and equivalent ly so in his trunk and limbs. His reflex integration is complete. There are no long tract si gns. He displays no abnormal posturing, or any abnormal or adventitious movements. His muscl e activation in his preserved musculature is normal with isolated movement control appropria te for age. Aside from his paraplegia there is no focal or generalized weakness. Instead str ength in these muscles is normal. There is no tremor or dysmetria or any other cerebellar si gns. POSTURAL CONTROL: All of Pete's postural control mechanisms are intact and his balance i s functionally effective and appropriate for age. Falling is not a concern. SKIN INTEGRITY: Pete has had a chronic wound under the metatarsal pads of his right foot . These were not accessible for my viewing today, because of the SLC. Mother reported that the wound looked better at the time of last cast change. His sensation is impaired by his own report in his right foot but is intact elsewhere. He reports that the hulzba-yq-i-shoe sensation is much worse (and typically so) with the left f oot, verifying the sensory impairment in the left foot and the consequent skin integrity thr eat. DEVELOPMENTAL EXAMINATION: I did not conduct a formal developmental assessment of Pete' s gross motor development using a standardized instrument. Pete is enjoying essentially n ormal gross motor development. FUNCTIONAL LEVEL: FUNCTIONAL LEVEL LEFT RIGHT Thoracic (no active lower limb movement) High-Lumbar (hip flexion present) Mid-Lumbar (knee extension present) Low-Lumbar (ankle dorsiflexion present) Sacral (plantarflexion present) * (on the left Pete has intact and normal function, so cannot be described as being at one of these motors) Gross Motor Functional Classification System (GMFCS) Level I: Walks without restrictions; limitations in more advanced gross motor skills. Level II: Walks without assistive devices; limitations walking outdoors and in the communi ty. Level III: Walks with assistive mobility devices; limitations walking outdoors and in the community. Level IV: Self-mobility with limitations; children use wheeled mobility. Level V: Self-mobility is severely limited even with the use of assistive technology On the GMFCS Pete functions at Level I EQUIPMENT: Pete will be getting a new right Ankle Foot Orthosis (AFO) from [facility] in [place] after the final cast removal. GAIT: Pete's gait is essentially normal, except for subtle drop-off at end-stance on the right. This is magnified today by the presence of the cast. Typically he runs fast and well , and can perform all manner of advanced dynamic upright activities except for those requiri ng the strong activation of his right ankle-foot musculature. He plays sports competitively. INSTRUCTION: I reviewed symptomatic spinal cord tethering and gave him the handout. I outli armani how monitoring his status for such adverse change is a major component of the clinic vis its and how he can assume a more active role in the monitoring. ASSESSMENT: Pete stable with respect to his musculoskeletal system and neuromotor functi oning. RECOMMENDATIONS: I did not make specific recommendations for PT or related referral. I did recommend return PT Evaluation in this clinic. Because of Pete's status and the r isk for adverse change related to the underlying diagnoses I will plan to evaluate him again at the next scheduled full team appointment with the Spina Bifida Program. Pete and his mother appeared to appreciate these assessments and recommendations. It was a pleasure seeing Pete and his mother again today. I welcome questions related to this report at [phone]. IDALMIS HUTSON PT, PCS Physical Therapist Pediatric Clinical Specialist [facility] [phone] [email or web address] documented in this encounter Plan of Treatment + + +--------+ + + | Name | Type | Priori | Associated Diagnoses | Order Schedule | | | | ty | | | + + +--------+ + + | DC PHYS THERAPY | Procedures | Routin | | Ordered: 09/13/2009 | | EVALUATION | | e | Lipomyelomeningocele | | | | | | Monoparesis (HCC) | | | | | | Contracture of | | | | | | Ankle and Foot Joint | | | | | | Pes Cavus, right | | | | | | Leg Length | | | | | | Discrepancy, right | | + + +--------+ + + documented as of this encounter Visit Diagnoses + + | Diagnosis | + + | Lipomyelomeningocele Spina bifida without mention of hydrocephalus, lumbar region | + + | Monoparesis (HCC) Unspecified monoplegia | + + | Contracture of ankle and foot joint | + + | Pes Cavus, right Talipes cavus | + + | Leg Length Discrepancy, right Unequal leg length (acquired) | + + documented in this encounter"
--- OUTSIDE RECORDS SUMMARY | ~2019-10-26 | XMS | Encounter Summary ---
Demographics + + + | Address | [address] | | | [place] [address] | + + + | Home Phone [...] [place] | | | | | [address] | | + + + + + Care Team Providers + +------+ + | Care Computer Education Professor Name | Role | Phone | + +------+ + PCP | Unavailable | + +------+ + Encounter Details +--------+ + + + + | Date | Type | Department | Care Team | Description | +--------+ + + + + | // | Orders Only | | Record, Operation | | | 2005 | | | | | +--------+ + [...] + + | OPERATION RECORD | | 12/18/2004 | | Results for this | | | | | | procedure are in the | | | | | | results section. | + +--------+ + + + documented in this encounter Results OPERATION RECORD (12/18/2004) + + | Transcriptions | + + | Interface, Etl Database Developer In - 11/05/2005 5:19 AM PST | | [id number] | | [id number] PAM Escobar | | | | Date: 12/18/2004 | | | | Attending Surgeon: Madhav Cobb M.D. | | | | Telephone Triage Nurse(s): Jessica Strange M.D. | | Juan Miguel Peralta, MS-IV | | | | Preoperative Diagnosis(es): | | Lipomyelomeningocele with right equinocavovarus foot deformity and clawtoe | | deformity. | | | | Postoperative Diagnosis(es): | | Lipomyelomeningocele with right equinocavovarus foot deformity and clawtoe | | deformity. | | | | Procedures Performed: | | A right plantar fasciotomy; a right Steindler stripping of the intrinsic | | musculature; right anterior tibialis tendon transfer to the dorsum of the | | midfoot; and flexor hallucis longus and flexor digitorum longus tendon | | lengthening. | | | | Anesthesia: | | | | Complications: | | | | Specimens: | | | | Indications: | | This is an almost 9-year-old young man with a history of | | lipomyelomeningocele with the above-mentioned deformity and basically | | walking on the base of the fifth metatarsal of his foot with callus | | formation. He was referred from the [facility]. He was non | | longer braceable. Recommendations were for the soft tissue procedures as | | mentioned above. I spoke with father about this. I considered performing | | a calcaneal osteotomy, but when I reviewed the amount of surgery that I was | | going to do, I felt it was more appropriate to just do the soft tissue | | surgery for now as I was worried about there being too much surgery and | | swelling postoperatively if we did all of it. I explained this to father, | | and I explained to him that all likely he will to have come back and | | perform a calcaneal osteotomy at a later date. Risks, goals, and benefits | | have been described to father, and written consent was obtained. I was | | present for his preoperative visit yesterday as well. | | | | Procedure: | | The patient was brought to the operating room and placed under general | | anesthesia with endotracheal intubation. Right lower extremity was prepped | | and draped with Betadine scrub and paint. We used a tourniquet about the | | right lower extremity at 250 mmHg for 109 minutes. He received IV Ancef | | prophylaxis prior to inflating the tourniquet. Our first incision was | | medioplantar. We made a 2.5-cm incision longitudinally. We identified | | directly with visualization of the plantar fascia and divided it with a | | Rasheed scissors. Care was taken to clean off the tissues above and below to | | avoid injuring any of the nerves. Underneath this, we had a nice | | visualization now of the intrinsic origin, and using knife as well as | | periosteal elevator, we were able to completely clean the calcaneal | | tubercle of the origin of the intrinsic musculature of the calcaneus. Once | | this was performed, we irrigated out this wound and closed it with Vicryl | | suture and Monocryl suture for skin. We repeated the same type of closure | | at all incisions. We then turned our attention to the medial side of the | | foot. A second incision was made along the plantar border of the midfoot. | | This allowed us to access both the anterior tibialis tendon which was | | dissected free, and an Ethibond suture was placed in this in a [place] | | fashion. We then brought our dissection underneath the foot. In the | | plantar aspect, we identified the plantar branches of the nerves. These | | were spared, even though he has spotty sensation, he does have some | | sensation to his foot, and we took care to avoid injuring these nerves. We | | then proceeded to identify the flexor knot of David. Both the flexor | | hallucis longus and the flexor digitorum longus were both tight, and we | | transected these sharply rather than step lengthening them. We then had | | toes that were much more relaxed, although still kept a cock-up type | | deformity. We then turned our attention to the anterior tibialis tendon. | | We made a small incision over the crest of the tibia, brought our tendon up | | through this incision, and then, subcutaneously brought it down to the | | dorsum of the foot over the level of approximately the middle cuneiform. A | | drill hole was made in the middle cuneiform followed by curettes to aid in | | passage of our tendon. A secondary drill hole was made. A smaller drill | | hole was made to allow passage of one suture into different tunnels and the | | first. We passed both suture ends, one through one tunnel and one through | | the second tunnel into the plantar aspect of the foot, directly visualizing | | this, we passed it through the Micah needle, and then, we passed our tendon | | into place and held it there until we performed our tendo Achilles | | lengthening. Our attention was turned to the tendo Achilles area. A | | 2-step incision was made, a small incision was made medial, distal over the | | calcaneal insertion of the tendon, half the tendon was identified and | | divided sharply. A second incision was made posterior and proximal. We | | tethered the tendon until we had release of the Achilles tendon, so that | | now it pulled along its own fibers, and we now we were able to get the | | calcaneus in a neutral position. The forefoot still had some residual | | equinus because of the cavus, but it was much better and in much more | | plantar grade position. We then held the foot in a good position and | | transferred our anterior tibialis tendon and tightened in its place, | | putting on knot in the bottom part of the midfoot. We had good hold of the | | tendon in this manner. We then irrigated out all the wounds, and they were | | closed in a layered fashion while holding our foot in a good position so | | that we did not stress the transfer. After all the wounds were closed, | | Steri-Strips were placed. A sterile Webril was used. We let down the | | tourniquet, put things up nicely. We then turned our attention placing in | | a well-molded short leg cast which was split on the lateral side to allow | | for swelling. There were no complications to the procedure. Estimated | | blood loss was minimal, and the patient will be reversed from anesthesia | | and brought to the recovery room. Postoperatively, this young man will be | | given crutches or a walker. He can be weightbearing on this foot and on | | the cast as tolerated when he is ready. I would like to see this young man | | back in clinic in 4 weeks. At that time, the cast needs to be removed. He | | needs to be molded for an AFO. We will put him back into a cast for 2 | | weeks and then deliver the AFO for him. We will follow him in the future, | | and if he needs a calcaneal osteotomy, we will perform this at a later | | time. | | | | | | | | | | Madhav Cobb M.D. | | | | RJT / HS | | [id number] / [id number] / [id number] / | | | | | | | | | | | | Electronically signed by Madhav Cobb 01-30-2005 04:00:39 PM | + + documented in this encounter Visit Diagnoses Not on filedocumented in this encounter"
--- OUTSIDE RECORDS SUMMARY | ~2019-10-26 | XMS | Encounter Summary ---
Demographics + + + | Address | [address] | | | [place] [address] | + + + | Home Phone | | + + + | Preferred Language | Unknown | + + + | Marital Status | Single | + + + | Mandaeism Affiliation | CHR | + + + [...] [place] | | | | | [address] | | + + + + + Care Team Providers + +------+ + | Care Hoop Punch And Coiler Operator Name | Role | Phone | + +------+ + | Dajuan Jerome MD | PCP | | + +------+ + Encounter Details +--------+ + + + + | Date | Type | Department | Care Team | Description | +--------+ + + + + | 02/28/ | Office | General Internal | Note, Outpatient | Progress Note | | 1995 | Visit-Trans | Medicine 5 | Clinic | | | | [facility] | [facility] | | | | | | Mailcode: [id number] | | | | | | Outpatient Clinic | | | | | | [facility], [address] | | | | | | [place], [place] | | | | | | [address] | | | | | | [phone] | | | +--------+ + + + [...] as of this encounter Progress Notes Interface, Security Auditor In - 01/22/2007 7:15 AM [facility] CLIN[facility] DATE: 02/29/96 PEDIATRIC NEUROSURGERY CLINIC: Pete underwent repair of his lipomyelomeningocele about three weeks ago. He returns for routine follow-up today. Mother has been concerned about decreased motion in the left upper limb as compared to the right, but otherwise she has no concerns. EXAMINATION: Pete has fairly symmetrical gross and fine movements of his upper limbs. I did not detect any gross asymmetry in several minutes of observation today. The Gena's reflex is symmetrical. The spinal wound has healed very nicely. Pete has spontaneous toe flexion and ankle plantarflexion. The Achilles reflexes are present. There is good perineal tone, and the anal wink is present on one side at least. IMPRESSION: Lipomyelomeningocele. Pete seems to be doing quite well from a neurosurgical standpoint. I do not quite know what to make of Mother's observation about the left upper limb. PLAN: I will see Pete in [facility]ifida [facility]. We will examine his upper limbs when he returns for follow-up in that setting as well. No further investigation will be undertaken at this time. Pete also has follow-up with Dr. Dave Malik regarding his bladder function. Shiraz Vance Jr., M.D., F.A.A.P. Template Storage Clerk, Neurosurgery and Pediatrics PATRICK:juarez documented in this encounter Plan of Treatment Not on filedocumented as of this encounter Visit Diagnoses Not on filedocumented in this encounter"
--- OUTSIDE RECORDS SUMMARY | ~2019-10-26 | XMS | Encounter Summary ---
Demographics + + + | Address | [address] | | | [place] [address] | + + + | Home Phone [...] [place] | | | | | [address] | | + + + + + Care Team Providers + +------+ + | Care Application Processor Name | Role | Phone | + +------+ + | Dajuan Jerome MD | PCP | | + +------+ + Encounter Details +--------+ + + + + | Date | Type | Department | Care Team | Description | +--------+ + + + + | 06/06/ | Hospital | Radiology at [facility] | | | | 2008 | Encounter | [address] | | | | | | Mailcode: [address] | | | | | | [place] | | | | | | [place], [place] | | | | | | [address] | | | | | | [phone] | | | +--------+ + + + [...] US KIDNEY & BLADDER | Routin | 06/06/2009 | Spina Bifida | Results for this | | | e | 10:16 AM | without Mention of | procedure are in the | | | | PDT | Hydrocephalus, | results section. | | | | | Lumbar Region | | | | | | Neurogenic Bladder, | | | | | | NOS | | + +--------+ + + + documented in this encounter Results US KIDNEY & BLADDER (06/06/2009 10:16 AM PDT) + + + + + + | Component | Value | Ref Range | Performed | Pathologist | | | | | At | Signature | + + + + + + | US KIDNEY & | Renal and Bladder | | | | | BLADDER | Ultrasound: | | | | | | 06/06/09.Comparison: | | | | | | 05/03/08.Clinical | | | | | | History: Evaluate for | | | | | | hydronephrosis. | | | | | | Patient with | | | | | | spinabifida.Findings: | | | | | | The kidneys are normal | | | | | | in location, | | | | | | morphology, | | | | | | andechogenicity. The | | | | | | right kidney measures | | | | | | 8.9 x 4.2 x 4.4 cm and | | | | | | has avolume of 85 ml. | | | | | | The left kidney | | | | | | measures 9.5 x 4.1 x 4.5 | | | | | | cm and hasa volume of | | | | | | 91 ml. Renal volumes | | | | | | are normal for the | | | | | | patient's weightof 46 | | | | | | kg. No stones, cysts, | | | | | | or masses are seen. A | | | | | | small amount ofleft | | | | | | renal pelvocaliceal | | | | | | fluid is present which | | | | | | resolves | | | | | | onpostcatheterization | | | | | | images. There is no | | | | | | right pelvocaliectasis, | | | | | | andno ureterectasis is | | | | | | seen on either side.The | | | | | | bladder wall is | | | | | | thickened and | | | | | | trabeculated, as | | | | | | previously seen.The | | | | | | bladder also contains | | | | | | layering debris. | | | | | | Pre-catheterizationbla | | | | | | dder volume measures 237 | | | | | | ml. | | | | | | Post-catheterization | | | | | | bladder volumemeasures | | | | | | 30 ml.IMPRESSION:1. | | | | | | Small amount of left | | | | | | renal pelvocaliceal | | | | | | fluid which resolves | | | | | | onpostcatheterization | | | | | | images. This may be | | | | | | physiologic, | | | | | | althoughvesicoureteral | | | | | | reflux cannot be | | | | | | excluded by ultrasound. | | | | | | Otherwiseunremarkable | | | | | | appearance of kidneys.2. | | | | | | Neurogenic bladder | | | | | | with debris.END | | | | | | IMPRESSIONI have | | | | | | personally viewed this | | | | | | procedure/exam and | | | | | | reviewed this | | | | | | report.Author: ROSAMARIA | | | | | | Morris GARCIAReviewer: | | | | | | IVÁN KOVACS, | | | | | | MorrisSTATUS FINAL / | | | | | | IVÁN Chris | | | | | | KIERSTENUS PENDING | | | | | | FINAL APPROVAL / | | | | | | ROSAMARIA BROWN | | | | | | PRELIMINARY - UNSIGNED / | | | | | | Dr. ROSAMARIA GARCIA | | | | + + + + + + + + | Specimen | + + | | + + + +---------+ + + | Performing | Address | City/State/Zipcode | Phone Number | | Organization | | | | + +---------+ + + | [facility] DEPARTMENT OF | | | | | RADIOLOGY | | | | + +---------+ + + documented in this encounter Visit Diagnoses + + | Diagnosis | + + | Spina bifida without mention of hydrocephalus, lumbar region | + + | Neurogenic bladder, NOS | + + documented in this encounter"
--- OUTSIDE RECORDS SUMMARY | ~2019-10-26 | XMS | Encounter Summary ---
Demographics + + + | Address | [address] | | | [place] [address] | + + + | Home Phone [...] Author + + + | Author | [facility] | + + + | Organization | [facility] | + + + | Address | Unknown | + + + | Phone | Unavailable | + + + Support + + + + + | Name | Relationship | Address | Phone | + + + + + | Sarahi Orozco | ECON | [address] | | | | | [place] | | | | | [address] | | + + + + + Care Team Providers + +------+ + | Care Director Of Acquisition Marketing Name | Role | Phone | + +------+ + PCP | Unavailable | + +------+ + Encounter Details +--------+ + + + + | Date | Type | Department | Care Team | Description | +--------+ + + + + | 05/03/ | Office | [facility] | Consult, [...] as of this encounter Progress Notes Interface, Marketing Support Coordinator In - 06/09/2006 1:03 AM PDTCLINIC DATE: 05/03/2003 CLINIC NAME: SPINA BIFIDA CLINIC DISCIPLINE: ORTHOPEDICS DIAGNOSES: 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 HISTORY OF PRESENT ILLNESS: Pete Orozco is a [id number] male, who is here today for follow-up of his right foot. He was noted in December to have a progressive rigid cavovarus deformity, with claw-toes on the right foot. He subsequently has undergone a complex de-tethering procedure, in February. His mother reported that he has been working with the physical therapist, and that she has noticed considerable improvement in his right lower extremity strength. The foot remains somewhat tight, and he continues to have some difficulty with balance on the right foot. PHYSICAL EXAMINATION: On examination, he still has a somewhat rigid cavovarus deformity, but it is more flexible than what it was in December. I can passively correct the varus to neutral. The cavus persists, but is less striking than what it was in December. He still has claw-toes, but these are passively stretchable to neutral. He has more obvious dynamic supination, and problems with varus when he is ambulating. This increases when he goes from walking to running. He is able to balance on his right foot, but this is more difficult than on the left. IMPRESSION: Some improvement in the cavovarus foot deformity following de-tethering; however, it still is causing a functional problem. I recommended that we fit him with a supramalleolar ankle-foot orthosis, which will allow freedom of ankle movement, but hopefully will support and control his hindfoot and midfoot. He does have ankle dorsiflexion of about five degrees, and good plantar flexion, and I would like to allow him to make the best use of this. He was given a prescription, and the mother was given instructions to contact her crts in [place], to find out which vendor provides orthotics for [facility] patients. I will see Pete when he returns for his next routine full clinic appointment, or sooner if needed. Reyna Buckley M.D. [id number] signed by Interface, Marketing Support Coordinator In at 06/09/2006 1:03 AM PDTdoc umented in this encounter Plan of Treatment Not on filedocumented as of this encounter Visit Diagnoses Not on filedocumented in this encounter"
--- OUTSIDE RECORDS SUMMARY | ~2019-10-26 | XMS | Encounter Summary ---
Demographics + + + | Address | [address] | | | [place] [address] | + + + | Home Phone [...] Author + + + | Author | [facility] | + + + | Organization | [facility] | + + + | Address | Unknown | + + + | Phone | Unavailable | + + + Support + + + + + | Name | Relationship | Address | Phone | + + + + + | Sarahi Orozco | ECON | [address] | | | | | [place] | | | | | [address] | | + + + + + Care Team Providers + +------+ + | Care Qa Auditor Name | Role | Phone | + +------+ + | Umm Kaufman MD | PCP | | + +------+ + Encounter Details +--------+ + + + + | Date | Type | Department | Care Team | Description | +--------+ + + + + | 12/22/ | Documentati | [facility] 7th | Nereyda Solares PNP | | | 2010 | on | Floor [address] | [address] | | | | | St Mailcode: [facility] [address] [place], | | | | | [facility] [place], [place] | [place] [address] | | | | | [address] | [phone] | | | | | [phone] | | | +--------+ + + + [...]
--- OUTSIDE RECORDS SUMMARY | ~2019-10-26 | XMS | Encounter Summary ---
Demographics + + + | Address | [address] | | | [place] [address] | + + + | Home Phone [...] [place] | | | | | [address] | | + + + + + Care Team Providers + +------+ + | Care Quality Control Checker Name | Role | Phone | + +------+ + | Umm Kaufman MD | PCP | | + +------+ + Reason for Visit + + + | Reason | Comments | + + + | Neurogenic bladder | Neurogenic bowel/Lipomyelomeningocele | + + + | Follow-up visit | | + + + Consultation (Routine) +--------+--------+ + + + + | Status | Reason | Specialty | Diagnoses / | Referred By | Referred To | | | | | Procedures | Contact | Contact | +--------+--------+ + + + + | Closed | | [facility] Spina | Diagnoses | [facility], | Cdr Spina | | | | Bifida | Neurogenic | Umm Salcedo MD | Bifida [address] | | | | | bladder, NOS | PEDS | [address] | | | | | Neurogenic | SPECIALISTS | Mailcode: | | | | | bowel | OF [place] | [facility] | | | | | Procedures | [address] | [place], [place] | | | | | [address] | [address] | [address] | | | | | PATIENT | [address] | Phone: | | | | | [address], | [place], | [phone] | | | | | [place] | [place] [address] | Fax: | | | | | | Phone: | [phone] | | | | | | [phone] | | | | | | | Fax: | | | | | | | [phone] | | +--------+--------+ + + + + Encounter Details +--------+---------+ + + + | Date | Type | Department | Care Team | Description | +--------+---------+ + + + | 04/07/ | Office | Urology -Pediatric | Justice Douglas, | Neurogenic bladder, | | 2010 | Visit | [address] | [address] [facility] | NOS; | | | | Mailcode: [address] | [address] | Lipomyelomeningocele | | | | [place] | [place], [place] | ; Neurogenic bowel | | | | [place], [place] | [address] | | | | | [address] | [phone] | | | | | [phone] | | | +--------+---------+ + + + [...] + + + | Blood Pressure | 130/71 | 04/07/2011 1:14 PM | | | | | PDT | | + + + + + | Pulse | 74 | 04/07/2011 1:14 PM | | | | | PDT [...] + + + + | Weight | 57.9 kg (127 lb 10.3 | 04/07/2011 1:14 PM | | | | oz) | PDT | | + + + + + | Height | 173.7 cm (5' 8.39") | 04/07/2011 1:14 PM | | | | | PDT | | + + + + + | Body Mass Index | 19.19 | 04/07/2011 1:14 PM | | | | | PDT | | + + + + + documented in this encounter Progress Notes Priscilla Eng RN - 04/07/2011 3:21 PM PDTIn basket sent to Dr. Loera's surgery schedule r re: coordinated surgery. Await dates then will call the family. Justice Maddox MD - 04/07/2011 2:32 PM PDT Pediatric Urology Clinic Note Patient: Pete Orozco [id number] Date of Visit: 04/07/2011 Attending Provider: Naty Douglas MD Patient presents with: Neurogenic bladder - Neurogenic bowel/Lipomyelomeningocele Follow-up visit History of Present Illness: Pete Orozco is a 15 y.o. Male with a [facility] who has NGB d ysfunction Recent UDS Results: 1. Bladder capacity 330 ml - he cathed 400 ml at start of study but stopped due to high pre ssures 2. Highly trabeculated, oblong bladder wall 3. Bladder neck open at rest 4. No VUR 5. No post cath residual 6. Areflexic bladder 7. Poor compliance 8. DLPP >40 cm of H2O at end filling 9. VLPP >40 cm of H2O at end filling - Wears pullups. Changes in am (wet every night), changes during the day. Probably wet mo re than dry. - Caths with 14 fr. At am, afternoon, before bed.- Caths through penis and denies difficult y passing catheter - Not Ditropan regularly. - UTI hospitalized a few months ago. - No fever? But not sure. - No AFOs - NO M[employer]ER shunt. - No Prior abdominal surgeries. - He continues to have occasional bowel accidents. Dr Johnson has counseled them on a Chaitanya t tube and he was supposed to see Dr. Loera about this. Father and Gabriel were under the impression that he was having surgery tomorrow by Dr. Abdullahi preston and myself (who he hasn't seen the pt and his office reported that they called and cancel led his outpt eval for Chait tube due to the being unavailable). His apt was set up to day to evaluate him for possible bladder augmentation. They clearly misunderstood the purpo se of the visit and significance of the procedures. Past Medical History: Past Medical History Diagnosis [...] upward and to the right noted on exam-07-20 Lipomyelomeningocele Past Surgical History: Past Surgical History Procedure Date Pr release tethered spinal cord,lumbr 02/20/2003 First repair, release of lipomyelomeningocele 01/1996 Right ankle/foot orthopedic surgery 12/2004 DR. LUNA COTTRELL Right ankle/foot complex orthopedic surgery 10/26/07 DR. MERARY [facility]YALA ([facility]) Right ankle/foot orthopedic surgery 06/2009 DR. MERARY AYALA ([facility]) Recent Foot surgery at [facility]- Has soft boot and using crutches currently. Family History Problem Relation Non-contributory No other known family history of NTD Current Medication List Name Sig CATHETER 1 Units by Intravesical route. Self-Cath Straight Tip 14 fr, 16 inches for for int ermittent catheterization program to manage neurogenic bladder (596.54). Do this 5 times anand ly. from 10/02/2010 DIAPER,BRIEF, ADULT,DISPOSABLE 1 Units by Does not apply route. Please provide pull-up cont inence diaper, small men's size for management of neurogenic bladder, bowel (596.54, 564.81) . OXYBUTYNIN CHLORIDE 5 MG TAB Take 5 mg by mouth three times daily. Allergies: Allergies Allergen Reactions Amoxicillin Rash Morphine Hives and Swelling Latex Hives and Itching Social History: History Social History Narrative Pete and his younger brother, Jared, now live with their father, Yamil, in [place], [place] . Last year he lived with his mother, Nicky, in [place], [place]. His parents in 2008. Pete has an older brother, Dave. Pete is a 9th-grade student (). Review of Systems: General: negative. Physical Exam: General: Well developed, well nourished. Ht 173.7 cm (5' 8.39") (62 %ile), Wt 57.9 kg (127 lbs 10.3 oz) (50 %ile), Weight for age(%) 50.45%, BMI for age(%) 36.80%, Length for age(%) 62.42%, BP 130/71, Pulse 74, BMI 19.19 kg/(m^2). Abdomen: Soft, Non-distended, Non-tender. No scars except over Rt ASIS from bone graft doe vest Back: Well healed lower lumbar scar. Results Reviewed: ULTRASOUND OF THE KIDNEYS AND BLADDER, 10/02/10 14:38:37 HISTORY: Rule out hydronephrosis COMPARISON: 06/06/2008 PATIENT'S WEIGHT: 53.6 kg TECHNIQUE: Real-time ultrasound of the kidneys and bladder was performed. FINDINGS: The bladder wall is trabeculated, with debris [...] bladder with debris. Recommend correlation with urinalysis. I have personally viewed this procedure/exam and reviewed this report. Author: MELODY BERRY MD Reviewer: MARIO TOMAS M.D. STATUS FINAL / Dr. MARIO TOMAS Severely trabeculated and oblong bladder from VUDS 01/17/2011 Impression: NGB Incontinence High intravesical pressures with small capacity and poor compliance. Poor compliance with bladder regiment. 1. Neurogenic bladder, NOS (596.54) 2. Lipomyelomeningocele (741.93) 3. Neurogenic bowel (564.81) Plan: I apologized to the family for the misunderstanding about the surgery date. He doesn 't have a surgery date scheduled. His bladder is high risk and not going to reverse with medical therapy and CIC. He needs a bladder augmentation. He is starting to show upper tract deterioration - We discussed the procedure in detail including but not limited to bowel complication, muc us and need for irrigation, perforation and risk of , chronic bacteruria. - They would like to proceed. - Schedule Cystoscopy, Lap Assisted Bladder Augmentation with Lap Chait- Coordinate with Dr. Loera. - He would like to prep with 3 days of Mag Citrate with 2 days clear liquids. - Admit the day before the procedure for completion of bowel prep - Doesn't need PICC or air bed. - We discussed cecostomy and the use of irrigations. The timing for evacuation of BMs. (4 5-60 minutes) - Cysto to check his urethra. Family came from [facility] and was unhappy about not being scheduled for surgery and more s o by their appointment with Dr. Loear being cancelled at the last minute (his office claims they were notified but father denies getting the message). If Dr. Loera cannot eval and operate on him when he returns I told his father that I could place the cecostomy tube at the time. We will contact Dr. Loera's oysterman and see if we can coordinate a procedure this summer. 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
--- OUTSIDE RECORDS SUMMARY | ~2019-10-26 | XMS | Encounter Summary ---
Demographics + + + | Address | [address] | | | [place] [address] | + + + | Home Phone | | + + + | Preferred Language | Unknown | + + + | Marital Status | Single | + + + | Restorationist Affiliation | CHR | + + + [...] [place] | | | | | [address] | | + + + + + Care Team Providers + +------+ + | Care Radiotelegraphist Name | Role | Phone | + +------+ + PCP | Unavailable | + +------+ + Encounter Details +--------+ + + + + | Date | Type | Department | Care Team | Description | +--------+ + + + + | 07/31/ | Office | [facility] | Consult, [...] as of this encounter Progress Notes Interface, Manager Visual In - 06/15/2005 7:41 AM PDT [id number] 07/31/2004 07/31/2004 [id number] [facility] DATE: 07/31/2004 CLINIC NAME: [facility] DISCIPLINE: PSYCHOLOGY REFERRAL AND UPDATED BACKGROUND INFORMATION: Pete Orozco, now 8 years 7 months old, returns for a brief psychological evaluation as per protocol for the [facility]. 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 Pete did undergo spinal cord detethering in February 2003. He was accompanied to the clinic today by his mother, Nicky Chapa, his siblings and extended family members. Information provided below was gathered via review of available records as well as standardized testing. Pete continues to live at home with his parents in [place], [place]. Family history is significant for a half-brother diagnosed with Attention Deficit Hyperactivity Disorder (ADHD). Pete's primary care physician continues to be Dr. Umm Kaufman. 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 He is eligible for special education services under the handicapping condition of Specific Learning Disability. A note from his school dated February 2004 suggests that Pete lacks motivation in the classroom and wants help with everything. He is falling further and further behind his age mates and is spending approximately 50% of his day in the resource room. Today, Ms. Chapa is seeking information that may help better understand why Pete is having academic difficulties. PROCEDURES USED: NEPSY: A developmental neuropsychological assessment; Behavior Assessment System for Children - Parent Rating Scales (BASC); record review; report writing. Total time for this evaluation was two hours. PREVIOUS EVALUATIONS: I had the opportunity to evaluate Pete initially in February 2001. At that time, using the WPPSI-R, he obtained a Verbal IQ score of 91, Performance IQ score of 89, and Full scale IQ score of 89. Scores on the BASC at that time yielded a Behavior Symptom Index T score of 48, Externalizing Problem T score of 46, and Internalizing Problem T score of 53. All of these scores were solidly within the average range. Pete also participated in the WISC-III in February 2003 through his local school district. At that time, he obtained a Verbal IQ score of 90, Performance IQ score of 91, and Full scale IQ score of 90. These results are very consistent with those obtained in February 2001, suggesting that Pete's intellectual skills are stable, and fall at the lower end of the average range. BEHAVIORAL OBSERVATIONS: Pete presented as a petite, dark haired boy who was casually dressed. He easily from his mother and accompanied me into an evaluation room. Pete was able to sit independently at a small table throughout the evaluation. Despite this, he was restless and fidgety. Pete had variable attention and concentration. As the evaluation progressed, he began to ask more and more frequently when he would be finished. Despite this, he was easily brought back to task and was never noncompliant. Pete worked quickly at times, and required some encouragement to slow down and think about his answer. Pete also had difficulty visually scanning, and frequently neglected to search in the upper right quadrant of his visual field. He could do this if he was asked to slow down and look at everything. TEST RESULTS: Neuropsychological Skills: Pete participated in the NEPSY. This instrument yields standard scores in five domains. Each of these domain scores has a mean of 100 and standard deviation of 15. Today, Pete obtained an Attention/Executive Functioning domain score of 72, which falls within the borderline range of ability, suggesting delays in skill development in this area. Pete also obtained a Sensory Motor domain score of 77, also within the borderline range of ability. His Language domain score of 82, Visual Spatial domain score of 88, and Memory domain score of 86 fell within the low average range. These scores are not necessarily discrepant from his overall measured intelligence. Subtest analysis suggests that Pete was able to perform within the average to high average range on a test of visual recognition memory, a test of auditory attention, a test of visual spatial processing, and a test of motor abilities. In contrast, he struggled with tests of visual scanning, visual motor precision, working memory, and overall cognitive flexibility and processing. Behavioral Adjustment: Ms. Chapa, Pete's mother, completed the BASC. This questionnaire yields information in several different behavioral domains, and allows for comparison with a normative sample. Today, Pete obtained a Behavioral Symptom Index T score of 66, which falls within the clinically at risk range. He also obtained an Externalizing Problem Composite T score of 72, within the clinically significant range, an Internalizing Problem Composite T score of 66, within the at risk range, and an Adaptive Skills Composite T score of 30, within the clinically significant range. These scores are much higher than those obtained three years ago when Gabriel was just entering school, suggesting increased concern on his mother's part across multiple areas. Clinically significant elevations were noted on the subscales of conduct problems and adaptability, with at risk elevations on multiple subscales including hyperactivity, aggression, withdrawal, depression, attention problems, and social skills. It is not known whether these scores indicate true changes in Pete's behavior or only changes in his mother's perception of his behavior and her concern for him. CONCLUSIONS AND RECOMMENDATIONS: Pete Orozco, now 8 years 7 months old, was seen today for an updated psychological evaluation as per protocol for the cochlear implant program. Rather than administering yet another standardized intelligence test for Pete (he has had two tests which were very consistent), I sought to attempt to further understand why he is having difficulty in the classroom. Results from a standard neuropsychological instrument suggest a wide scatter in skill development, with a clear pattern of strength and weakness areas. Informal observation of Pete as well as subtest analysis suggests that, in general, Pete has great difficulty with executive functioning skills, including cognitive flexibility, sequencing, sustained attention, and working memory. He struggles when information is presented in one modality, and he is asked to then respond to that information in a different modality. Again, Pete has many executive functioning deficits, suggesting that there are difficulties with higher order processing skills. Executive functioning deficits provide one explanation for Pete's difficulty with motivation and getting tasks started in the classroom. He may also lack the sequencing skills to know how to begin an activity, and the sustained attention to work until an assignment is completed. At present, Pete's executive functioning deficits should be thought of as part of his learning disability. In light of the above information, the following recommendations are made: 1) I spoke with Dr. Johnson regarding Pete's apparent right upper quadrant visual neglect, and he will make a referral to [facility] to make sure there are no vision concerns for Pete. Certainly, visual difficulties would have impacted Pete's performance today and would also impact his school success as well. 2) Pete would benefit from continued special education services at school. The handicapping condition of Specific Learning Disability is very appropriate. It will be important to remember that Kandaces learning disability cuts across all activities and influences his behavior presentation as well as his academic work. 3) Additional information about executive functioning deficits can be found on internet websites devoted to Nonverbal Learning Disabilities (see www.nlda.org for appropriate links). While Pete does have many features of a NLD, he does not have enough to warrant the diagnosis at this point. 4) Educational strategies that may improve Pete's motivation at school can be found in a book by Kathy Isaac called The Sourcebook for Children with NLD. 5) Pete may benefit from a trial of stimulant medication to address his difficulties with sustained attention, sequencing, and working memory. Ms. Duron should discuss this possibility with Dr. Kaufman. Stimulant medication is sometimes very effective for improving executive functioning skills, which are often seen in individuals diagnosed with Attention Deficit Hyperactivity Disorder, which may also be an appropriate diagnosis for Pete in the future, but not until his ophthamological status has been evaluated. 6) I will check on Pete's medical and educational status in approximately 6 months and make a decision at that time whether further psychological evaluation is warranted. Thank you for the opportunity to see Pete again. He truly was a delightful and engaging child. If there are questions about this report, or additional information is needed, please do not hesitate to contact me at [phone]. Huber Diehl, Ph.D. Psychologist [id number] P C: 08/12/2004 [email or web address] [id number] CC: Robert Johnson [facility] Developmental Route Supervisor documented i n this encounter Plan of Treatment Not on filedocumented as of this encounter Visit Diagnoses Not on filedocumented in this encounter"
--- OUTSIDE RECORDS SUMMARY | ~2019-10-26 | XMS | Encounter Summary ---
Demographics + + + | Address | [address] | | | [place] [address] | + + + | Home Phone [...] + + + | Author | [facility] | + + + | Organization | [facility] | + + + | Address | Unknown | + + + | Phone | Unavailable | + + + Support + + + + + | Name | Relationship | Address | Phone | + + + + + | Sarahi Orozco | ECON | [address] | | | | | [place] | | | | | [address] | | + + + + + Care Team Providers + +------+ + | Care Rate And Cost Analyst Name | Role | Phone | + +------+ + | Dajuan Jerome MD | PCP | | + +------+ + Encounter Details +--------+ + + + + | Date | Type | Department | Care Team | Description | +--------+ + + + + | 02/14/ | Transcribed | [facility] at | Dictation, Other | Transcribed | | 1995 | | [facility] [address] | | | | | | Ashley Acevedo | | | | | | Mailcode: [id number] [facility] | | | | | | [place] | | | | | | [facility] | | | | | | [place] [id number] | | | | | | [phone] | | | +--------+ + + + [...] as of this encounter Progress Notes Interface, Chief Supply Chain Officer In - 01/22/2007 7:15 AM PST [address] [address] or February 12 1996 GEOFF KAUFMAN MD [address] [place] [address] RE:Pete Orozco MR#:[id number] : 89 [address] Kaufman: Pete was discharged from [facility] on 02-14-96, five days after the repair of his lipomyelomeningocele. Pete's postoperative course was quite uncomplicated. His Lockett catheter was discontinued on the third postoperative day, and subsequently he voided with low post-void residuals. At the time of discharge, his wound was healing without sign of infection. There was mild weakness of toe flexion and ankle plantar flexion on the right side, perhaps very slightly worse than before surgery. I think it is quite likely he will return to his baseline. Pete is booked for a renal ultrasound today as an outpatient here in [place], and subsequently his family will be returning to [place]. I shall see Pete in about two weeks to check on the healing of his wound. In the longer term, we shall follow Pete in [facility]. Pete's care has been a great pleasure. Do not hesitate to contact me if I can assist you in any other way. Very best regards, Shiraz Vance Jr., M.D., F.A.A.P. Recreation Facility Manager, Neurosurgery and Pediatrics PATRICK/giuseppe P cc: Robert Johnson M.D. Recreation Facility Manager, Pediatrics documented in this encounter Plan of Treatment Not on filedocumented as of this encounter Visit Diagnoses Not on filedocumented in this encounter"
--- OUTSIDE RECORDS SUMMARY | ~2019-10-26 | XMS | Encounter Summary ---
Demographics + + + | Address | [address] | | | [place] [address] | + + + | Home Phone [...] + + + | Author | [facility] | + + + | Organization | [facility] | + + + | Address | Unknown | + + + | Phone | Unavailable | + + + Support + + + + + | Name | Relationship | Address | Phone | + + + + + | Sarahi Orozco | ECON | [address] | | | | | [place] | | | | | [address] | | + + + + + Care Team Providers + +------+ + | Care Echocardiograph Technician Name | Role | Phone | + +------+ + | Dajuan Jerome MD | PCP | | + +------+ + Reason for Visit + + + | Reason | Comments | + + + | Spina bifida | Scheduled team follow up. | + + + Consultation (Routine) +--------+--------+ + + + + | Status | Reason | Specialty | Diagnoses / | Referred By | Referred To | | | | | Procedures | Contact | Contact | +--------+--------+ + + + + | Closed | | [facility] Spina | Diagnoses | Queenie, | Cdr Spina | | | | Bifida | Spina | Dajuan Hinson MD | Bifida [address] | | | | | bifida | [place] | [facility] [address] | | | | | without | COUNTY | Mailcode: | | | | | mention of | HEALTH DEPT | [facility] | | | | | hydrocephalu | [address] | [place], [place] | | | | | s, lumbar | [place], | [address] | | | | | region | [place] [address] | Phone: | | | | | Neurogenic | Phone: | [phone] | | | | | bladder, NOS | [phone] | Fax: | | | | | Procedures | Fax: | [phone] | | | | | SB SPECIAL | [phone] | | | | | | MM, EA | | | +--------+--------+ + + + + Encounter Details +--------+---------+ + + + | Date | Type | Department | Care Team | Description | +--------+---------+ + + + | 01/16/ | Office | [facility] at [facility] 7th | Nereyda Solares PNP | Lipomyelomeningocele | | 2009 | Visit | Floor [address] | [address] | (Primary Dx); Leg | | | | St Mailcode: [facility] | Maritza Ferreira [place], | Length Discrepancy, | | | | [facility] [place] | [place] [address] | right; Scoliosis; | | | | [address] | [phone] | Change of life; | | | | [phone] | | Neurogenic bladder, | | | | | | NOS; Neurogenic | | | | | | bowel; Monoparesis | | | | | | ([facility]) | +--------+---------+ + + + Social History [...] + + + | Blood Pressure | 130/82 | 01/16/2010 12:55 PM | | | | | PST | | + + + + + | Pulse | 91 | 01/16/2010 12:55 PM | | | | | PST | [...] + + + + | Weight | 53.6 kg (118 lb 2.7 | 01/16/2010 12:55 PM | | | | oz) | PST | | + + + + + | Height | 165.4 cm (5' 5.12") | 01/16/2010 12:55 PM | | | | | PST | | + + + + + | Body Mass Index | 19.59 | 01/16/2010 12:55 PM | | | | | PST | | + + + + + documented in this encounter Progress Notes Nereyda Solares PNP - 01/17/2010 3:07 PM PST SPINA BIFIDA STAFFING SUMMARY Pete is a 14 y.o. male here for a follow-up in [facility] Bifida Clinic. His last full team visit was in August 2009. He is accompanied today by his mother, Nicky. Chief Concerns: No significant concerns identified on interview, however, there are always ongoing concerns about stool and bladder incontinence. 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 Past Medical History Diagnosis Date Neurogenic bladder [...] ankle/foot complex orthopedic surgery 10/26/07 DR. MERARY CANTRELL [place] [place] Right ankle/foot orthopedic surgery 06/2009 DR. MERARY CANTRELL [place] [place] History Social History Narrative Pete lives with his mother, Nicky, in [place], [place]. Last year (2008) his parents divor anuja and Pete's younger brother, Jared now lives with his father, Yamil, in [place], [place]. Pete's older brother, Dave, has returned to [place] from [place], [place], where he was l iving with an aunt. Pete is an 8th-grade student ([phone]). Current outpatient prescriptions: Catheter Misc, by Misc.(Non-Drug; Combo Route) route., Di sp: 150 Each, Rfl: 11 oxybutynin CR (DITROPAN XL) 10 mg Oral Tab,Sust Rel Osmotic Push 24hr, Take 1 Tab by mouth once daily., Disp: 30 Tab, Rfl: 11 ALLERGIES: Amoxicillin (rash). No history of reaction to Latex. Latex precautions are obser vivienne. INTERVAL HEALTH: Excellent without significant illness, accident or injury. LIPOMYELOMENINGOCELE: Initial repair 1995. Secondary untethering surgery 02/2003. MRIs obtained 05/17 and 01/16. Partial radiology reports below MR CERVICAL, THORACIC & LUMBAR SPINE WO CONTRAST: 05/31/2002 FINDINGS: There is congenital and postoperative distortion of the distal spinal cord consis tent with patient's history of repaired lipomyelomeningocele. The cord splits at approximate ly the L2-3 level with nerve roots extending into a large distal lipoma. A small amount of fluid is also seen within the cord at the L2-3 level. Bony spinal dysraphism is seen at L4, L5, and sacrum. The vertebral body heights, disc spaces and alignments are maintained. The cervical medulla ry junction is normal, and there is no evidence of Chiari malformation. The cervical and tho racic cord signal and morphology are normal. IMPRESSION: Findings consistent with previous lipomyelomeningocele repair with residual abnormalities a s described. Lumbar spine MRI obtained 01/16 just before Pete underwent spinal cord untethering surger y found no significant interval change of L4 to upper sacrum spinal dysraphism. Findings wer e reported to be consistent with prior lipomyelomeningocele repair with low lying cord tissu e to the L5-S1 level. There was persistent cystic dilation of the distal spinal cord startin g at L3 typical of a myelocystocele. No post surgical secondary untethering study obtained. No interval concerns about recurrenc e of spinal cord tetheirng. Bowel and bladder function unchanged. Pete denies back or leg pain, numbness or tingling of lower extremities. Strength is unchanged. CHIARI BRAIN STEM FUNCTION: Asymptomatic. No Chiari malformation was seen on imaging. SYRINX OF SPINAL CORD: Current Symptoms: None. NEUROGENIC BLADDER: Yes Surgical Alterations: None. History: Inconsistent adherence to program of CIC and Ditropan. Onset of hydronephrosis not ed on renal ultrasound in 2001 that had resolved on follow-up ultrasound later that year. Ul trasounds have been normal subsequently. Current Treatment: Clean intermittent catheterization: yes size: 14 Wolof. He is prescrib ed 5 mg Ditropan XL once daily. He tells me is is taking that . He is to catheterize every 4 hours; previously he refused to cath at school. Today he reports he is cathing at school an d caths 3-4 times per day. He continues to leak between caths during the day and overnight. Self: Yes. Last UTI was before his circumcision years ago. Current Symptoms: None Current pattern of bladder continence: TABLE OF BLADDER INCONTINENCE Continence or Dryness DRY DRY DAMP DAMP SOAKED SOAKED Without intervention With Intervention Without intervention With Intervention Without Inte rvention With Intervention Always Dry Monthly Incontinence Weekly Incontinence Daily Incontinence XX XX DEFINITION: BLADDER CONTINENCE: Dry, with or without interventions, during the day. INTERVENTION: Means treatment, procedure, and/or medication. Examples include clean intermi ttent catherization (CIC), Oxybutynin. Imaging: US KIDNEY & BLADDER: Renal and Bladder Ultrasound: 06/06/09. Comparison: 05/03/08. Clinical History: Evaluate for hydronephrosis. Patient with spina bifida. Findings: The kidneys are normal in location, morphology, and echogenicity. The right kidney measures 8.9 x 4.2 x 4.4 cm and has a volume of 85 ml. The left kidney measures 9.5 x 4.1 x 4.5 cm and has a volume of 91 ml. Renal volumes are normal for the patient's weight of 46 kg. No stones, cysts, or masses are seen. A small amount of left renal pelvocaliceal fluid is present which resolves on postcatheterization images. There is no right pelvocaliectasis, and no ureterectasis is seen on either side. The bladder wall is thickened and trabeculated, as previously seen. The bladder also contains layering debris. Pre-catheterization bladder volume measures 237 ml. Post-catheterization bladder volume measures 30 ml. IMPRESSION: 1. Small amount of left renal pelvocaliceal fluid which resolves on postcatheterization images. This may be physiologic, although vesicoureteral reflux cannot be excluded by ultrasound. Otherwise unremarkable appearance of kidneys. 2. Neurogenic bladder with debris. Urodynamic Study 11/15/2009 "Results: 1. Bladder capacity 450 ml 2. Trabeculated [...] CIC at least 5 times per day Anticholinergic" NEUROGENIC BOWEL: yes Current Treatment: No formal bowel program is practiced. Report stools are Type V on Bristo l Stool Form Scale (quite loose). Current Symptoms: Daily accidents Patterns of Evacuation: Frequency once or twice daily. TABLE OF BOWEL INCONTINENCE Continence Aware Uses Toiliet Aware Uses Toiliet Schedule or Remind to Use Toilet Schedule or Remind to Use Toilet Not Aware Evacuated in Diaper Not Aware Evacuated in Diaper Without intervention With intervention Without intervention With intervention Without intervention With intervention Always Incontinent Monthly Incontinence Weekly Incontinence Daily Incontinence XXX Never Incontinent DEFINITION: NOT AWARE means not able to reach the commode and evacuate without soiling. Has neither sen sation of fullness, urge to evacuate, or sense of full diaper or excrement in underwaer or d iaper. Not Aware Without interventin means no bowel program, no treatment, no medication, an d hence no continence. ORTHOPEDICS: Care established at [facility]. Spine films first showed mild scoliosis then none (11/17, 12/19 & 06/20). Slight pelvic obliqu ity. R lower limb and foot smaller than L w/2 cm leg length discrepancy. Right foot deformit ies. Complex surgery 12/21 (Luna Cottrell MD at [facility]), however, right foot deformitie s continued to progress. Underwent osteotomy of medial cuneiform & 1st metatarsal w/iliac cr est bone grafting; EHL tenotomy & tenodesis of EHL to EHB; tenotomy of 5th extensor tendon; fusion of IPJ of great toe & plantar fascia release right side 10/22 (Merary Cantrell MD) . Returned for removal of metal from right foot 12/24. Underwent another procedure 06/24 w as in a cast 08/24. Ankle/foot appeared well aligned. Imaging: SCOLI SPINE ENTIRE 36 1 VIEW: AP spine radiograph: 01/16/10. Comparison: 07/02/05. History: Scoliosis. "Impression: Lumbosacral dysraphism again noted. Upper thoracic levocurvature measures 6.6 degrees. Thoracolumbar dextrocurvature measures 7.2 degrees. Mild cephalad tilt of left hemipelvis. Femoral heads well contained by acetabula. Risser stage 2." NEUROMOTOR & MOBILITY: Isolated subtle motor deficits affecting R foot. Weakness of anterio r and lateral compartment muscles on the R. Musculature of R calf diminished when compared t o L and R foot smaller. Stable. Wearing new AFO on right foot from [employer]. Gait: normal ex cept for subtle drop-off at end-stance on the right. He plays competitive sports. SKIN/ INTEGUMENT: History of recurrent wounds under metatarsal heads that heal slowly. We w ere unable to assess at his last visit in August because he was casted. He has risk for burton akdown due to dimnished sensation on the plantar surface of both feet. Pete is active thr oughout the day and plays baseball. 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 HEADACHES: History of periodic headaches, likely migraines. He reports headaches have not b een a problem this last year, occuring perhaps once every 2-3 weeks. He takes 400 mg of ibup rofen with good results. His mother and aunts have migraine history. OPHTHALMOLOGY: We have encouraged baseline evaluation. Optometry screening exam at [facility], negative for visual acuity problems. ROS: Except as stated above the rest of the review of systems is entirely negative. EDUCATION/INDEPENDENCE: History: OT evaluation WNL; in found mild delay in fine motor skills. Did partici iverson in [employer] and [employer]. Formal cognitive eval 02/14: Verbal 91, Performance 89, Full Scale 89- low average. Returned 07/20 for 2nd evaluation using NEPSY tool w/5 domains. Attention/E xecutive Function-72, Sensory motor 77, Language 82, Visual Spatial 88, Memory 86. It was th ought he might benefit from stimulant medication. WISC-IV testing @school 2005: Verbal compr ehension 75, Perceptual Reasoning 79, Working Memory 65, Processing speed 80, Full scale 70. 8th grade student: Slow academic progress - well below grade level in all areas. Learning C enter support for Reading, Writing, Math. OT eval 2005 @school: low abilities in spatial rel ationships, copying & figure ground. Recommended keyboarding. Pete's mother reports he is not doing that well in school this year. PHYSICAL EXAM: Ht 165.4 cm (5' 5.12") (55 %ile), Wt 53.6 kg (118 lbs 2.7 oz) (58 %ile), Weight for age(%) 58.38%, BMI for age(%) 56.02%, Length for age(%) 54.78%, Head circumference 55.5 cm (21.8 5"), BP 130/82, Pulse 91. General appearance: Pete is brightly alert and in no apparent distress. He is fully griddle cook perative with today's interview and exam. HEENT: Normocephalic. EOMs are full. PERRLA. Red reflexes are symmetrical. No nystagmus or strabismus. No significant oral lesions. The neck is supple. Chest and back: well healed linear surgical scar in lumbar region, without pilo thesia, drainage, hirsutism, or discoloration. Lungs are clear. Heart: Regular rhythm and p hysiologic sounds. Abdomen: No organomegaly or masses, tenderness or guarding. Genitalia: D eferred to Urology. Pulses normal. Lymphatics normal. Skin: Intact overall. On the plantar s urface of right foot the skin is intact with one mobile callus at the medial metatarsal head . Orthopedics: Spine appears straight in frontal plane when sitting. When standing pelvic ob liquity is more pronounced than at previous visits (left side higher) and he appears to have noticeable scoliosis curvature with trunk leaning to the right. Lower limbs with normal devan nt alignment. Right ankle and foot well aligned and neutral orientation overall. Neuromotor: With exception of right ankle and foot the upper and lower extremity range of motion is wit hout restriction or spasticity. Full strength to confrontation noted except for weakness of muscle groups about the ankle and foot. At the right ankle there is limited range into both dorsiflexion and plantar flexion. Right calf is smaller than left. Neurological: Oriented, a ge appropriate conversation and behavior. Cranial nerves 2-12 intact. DTRs 2+ and symmetri c in upper extremities. Negative Terry bilaterally. Patellar DTRs 1+ bilaterally. Left Ach illes slight response, no response on right. Gait is smooth without abductor lurch. SPINA BIFIDA TEAM IMPRESSIONS AND RECOMMENDATIONS: Neurosurgical: No interval concerns. Stable. Opthalmology: No apparent visual concerns by report. We encourage dilated fundal exam with an senior executive assistant, locally or here at [facility]. Dr. Jerome to make referral. Neurogenic Bladder: Generally stable, however, he needs to catheterize more frequently. Dr. Douglas increased Ditropan XL to 10 mg once daily. Catheters were prescribed (150 per month) . He is to return in 6 months for renal ultrasound and urology follow up. Neurogenic Bowel: Incontinence an ongoing problem. Pete appeared to be interested in the benefits of a Chait cecostomy procedure. I gave him the booklet and review at length the wa y it works and how the appliance would appear on his abdomen. I encouraged him to take chewa ble fiber daily to improve stool consistency. He is to call me if he would like to discuss t his further with Dr. Loera, pediatric surgeon. Orthopedic: Well-aligned right foot and ankle status post recent surgery. X-ray findings in dicate mild scoliosis curvature although clinically it appears pronounced. This does documen t a progression since his last film that found no scoliosis. He is to return to [facility] for further assessment of his back and review of R AFO (as recommended by team physical therapi Robinson haque). Neuromotor & Mobility: Excellent motor skills & strength. Stable. Psychoeducational: School performance more than likely affected by significant changes in f amily structure. We encourage him to consider counseling locally. Today's finding, interpretations, and recommendations were shared with Nicky and Pete araiza understand and concur. Pete was seen by available Spina Bifida Team members including P ediatric Nurse Practitioner, , Physical Therapy and Urology. I spent 60 minutes with Pete and Nicky of which more than 50% was spent in care [facility]. FOLLOW UP: Full team with renal ultrasound in 6 months. KAREL Matthews Pediatric Nurse Practitioner Spina Bifida Program PH: [phone] Email: [email or web address] documented in this enco unter Plan of Treatment Not on filedocumented as of this encounter Results X-RAY SCOLI SPINE ENTIRE [...] + + | Performing | Address | City/State[facility] | Phone Number | | Organization | | | | + +---------+ + + | [facility] DEPARTMENT OF | | | | | RADIOLOGY | | | | + +---------+ + + documented in this encounter Visit Diagnoses + + | Diagnosis | + + | Lipomyelomeningocele - Primary Spina bifida without mention of hydrocephalus, lumbar | | region | + + | Leg Length Discrepancy, right Unequal leg length (acquired) | + + | Scoliosis Scoliosis (and kyphoscoliosis), idiopathic | + + | Change of life Symptomatic menopausal or female climacteric states | + + | Neurogenic bladder, NOS | + + | Neurogenic bowel | + + | Monoparesis (HCC) Unspecified monoplegia | + + documented in this encounter
--- OUTSIDE RECORDS SUMMARY | ~2019-10-26 | XMS | Encounter Summary ---
Demographics + + + | Address | [address] | | | [place] [address] | + + + | Home Phone [...] [place] | | | | | [address] | | + + + + + Care Team Providers + +------+ + | Care Brand Marketing Manager Name | Role | Phone | + +------+ + | Umm Kaufman MD | PCP | | + +------+ + Reason for Visit + + + | Reason | Comments | + + + | Follow-up visit | s/p glenn carlos sur06/26/11 | + + + Consultation (Routine) +--------+--------+ + + + + | Status | Reason | Specialty | Diagnoses / | Referred By | Referred To | | | | | Procedures | Contact | Contact | +--------+--------+ + + + + | Closed | | Pediatric | Diagnoses | Mergopals, | Luz Maria, | | | | Surgery | Spina | MD Robert | Gabriel Love MD | | | | | bifida | [address] | | | | | | without | [address] | | | | | | mention of | [place], [place] | | | | | | hydrocephalu | [address] | | | | | | s, lumbar | Phone: | | | | | | region | [phone] | | | | | | Neurogenic | Fax: | | | | | | bladder, NOS | [phone] | | | | | | Neurogenic [...] Description | +--------+---------+ + + + | 06/03/ | Office | Pediatric Surgery | Laurel Leal, | Neurogenic bowel | | 2011 | Visit | at [facility] [address] | [address] | (Primary Dx) | | | | [place] Mailcode: | | | | | | [address] | | | | | | [place], [place] | | | | | | [address] | | | | | | [phone] | | | +--------+---------+ + + + [...] Pressure | 136/72 | 06/03/2012 3:54 PM | | | | | PDT | | + + + + + | Pulse | 58 | 06/03/2012 3:54 PM | | | | | PDT | | + + + + + | Temperature | 36.3 C (97.4 F) | 06/03/2012 3:54 PM | | | | | PDT [...] (119 lb 11.4 | 06/03/2012 3:54 PM | | | | oz) | PDT | | + + + + + | Height | 171.1 cm (5' 7.36") | 06/03/2012 3:54 PM | | | | | PDT | | + + + + + | Body Mass Index | 18.55 | 06/03/2012 3:54 PM | | | | | PDT | | + + + + + documented in this encounter Progress Notes Laurel Leal RN,[facility] - 06/03/2012 4:29 PM PDT Pete Orozco is a 16 y.o. male who presents to Pediatric Surgery Clinic with his fat her and step mother to discuss his cecostomy irrigations. Pete received a cecostomy tube approximately 1 year ago in conjunction with his bladder augmentation. Pete has never b een compliant with the irrigations. He splits his time between two households, and neither set of parents has been successful in getting him to do his irrigations. Gabriel states that particularly since his augmentation, he is more able to sense when he needs to have a bowel movement and he is able to stay mostly clean. He reports that he has soiled his undercloth es "maybe once a week". He does complain that the tube is messy. It drains, sometimes bleed s, and it keeps him from roughhousing with his friends. He would like it out. His father i s willing to try to do what is medically necessary for Pete, but that if he does not have to do these irrigations, both he and Pete's mother would support Pete's desire to hav e the tube removed. Patient Active Problem List Diagnoses Lipomyelomeningocele Neurogenic Bladder, NOS Neurogenic Bowel Delayed Milestones LIPOMA OF OTHER SPECIFIED SITES Scoliosis Visual Impairment Contracture of Ankle and Foot Joint Monoparesis Pes Cavus, right Decubitus Ulcer of Heel Leg Length Discrepancy, right Change of life Tethering of spinal cord Abnormal gait History of migraine headaches Past Surgical History Procedure Date Pr release tethered spinal cord,lumbr 02/20/2003 First repair, release of lipomyelomeningocele 01/1996 Right ankle/foot orthopedic surgery 12/2004 DR. LUNA COTTRELL Right ankle/foot complex orthopedic surgery 10/26/07 DR. MERARY AYALA ([facility]) Right ankle/foot orthopedic surgery 06/2009 DR. MERARY AYALA ([facility]) Cystoscopy and bladder augmentation (ileocystoplasty with 30 cm of small bowel) 011 Laparoscopic chait cecostomy tube placement 06/26/2011 BP Readings from Last 1 Encounters: 06/03/12 136/72 Pulse Readings from Last 1 Encounters: 06/03/12 58 Resp Readings from Last 1 Encounters: 04/14/12 20 Wt Readings from Last 1 Encounters: 06/03/12 54.3 kg (119 lb 11.4 oz) Temp Readings from Last 1 Encounters: 06/03/12 36.3 C (97.4 F) Oral Pain= 0 ROS: negative except as noted above. Exam: General: NAD, Nontoxic Abd: soft and rounded. + palpable stool in left colon. Assessment: Pete Orozco is a 16 y.o. Male with lipomyelomeningocele with an unwante d cecostomy tube. Pete is an ambulatory, active young man who has never really embraced the prescribed bow el management plan with the cecostomy tube. He demonstrated little motivation during our ini tial teaching last year and has never been compliant due to the time requirements. Pete is able to self-administer a suppository, enema and is happy enough with his current way of life with occasional accidents. The parents are supportive of removing tube and eliminating this source of conflict with their son. Plan: 1. Cecostomy tube removed today by complete extraction of tube (after versed 10 mg or al for anxiolysis). Dressing applied. Tolerated well 2. Discussed dietary management of constipation and importance of avoiding extreme constipa tion- handout provided. 3. Expect spontaneous closure of cecostomy site in 2-3 days, contact office if leakage cont inues documented in thi s encounter Plan of Treatment Not on filedocumented as of this encounter Visit Diagnoses + + | Diagnosis | + + | Neurogenic bowel - Primary | + + documented in this encounter
--- OUTSIDE RECORDS SUMMARY | ~2019-10-26 | XMS | Encounter Summary ---
Demographics + + + | Address | [address] | | | [place] [address] | + + + | Home Phone [...] [place] | | | | | [address] | | + + + + + Care Team Providers + +------+ + | Care High School Football Coach Name | Role | Phone | + [...] | | bifida | [place] | [address] | | | | | without | [place] | Mailcode: | | | | | mention of | HEALTH DEPT | [facility] | | | | | hydrocephalu | [address] | [place], [place] | | | | | s, lumbar | [place], | [address] | | | | | region | [place] [address] | Phone: | | | | | Neurogenic | Phone: | [phone] | | | | | bladder, NOS | [phone] | Fax: | | | | | Procedures | Fax: | [phone] | | | | | [place] | [phone] | | | | | | US,RETROPERI | | | | | | | T, | | | | | | | B-SCAN/REAL | | | | | | | TIME,COMPLET | | | | | | | E overdue | | | | | | | annual SB | | | | | | | Team eval | | | | | | | for ongoing | | | | | | | continuity | | | | | | | of specialty | | | | | | | care: Peds | | | | | | | (Alex), | | | | | | | Urol (Nicolas | | | | | | | or | | | | | | | John) + | | | | | | | renal/bladde | | | | | | | r | | | | | | | ultra-sound, | | | | | | | NSG-PNP | | | | | | | (Katya), PT | | | | | | | eval | | | +--------+--------+ + + + + Encounter Details +--------+---------+ + + + | Date | Type | Department | Care Team | Description | +--------+---------+ + + + | 04/21/ | Office | PS[facility]IATRIC at [facility] | Robert Johnson MD | Spina Bifida without | | 2006 | Visit | Floor [address] | [address] [facility] | Mention of | | | | St Mailcode: PSYCHIATRIC | [place], [place] | Hydrocephalus, | | | | [facility], [place] | [address] | Unspecified Region | | | | [address] | [phone] | (Primary Dx); | | | | [phone] | | Neurogenic Bladder, | | | | | | NOS | +--------+---------+ + + + Social History [...] + + + | Blood Pressure | 102/62 | 04/21/2007 2:46 PM | | | | | PDT | | + + + + + | Pulse | 95 | 04/21/2007 2:46 PM | | | | | PDT [...] + + + + | Weight | 32.9 kg (72 lb 8.5 | 04/21/2007 2:46 PM | | | | oz) | PDT | | + + + + + | Height | 144.2 cm (4' 8.77") | 04/21/2007 2:46 PM | | | | | PDT | | + + + + + | Body Mass Index | 15.82 | 04/21/2007 2:46 PM | | | | | PDT | | + + + + + documented in this encounter Progress Notes Robert Johnson - 04/21/2007 9:42 AM PDT Pete is a 11 y.o. male here for a follow-up in Sp[facility] Bifida Clinic . Concerns today are stool incontinence and headaches. 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 INTERVAL HEALTH: generally healthy. Mother reports good school progress. 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 his Sensory level is unchanged Change in function since last exam:changes in ambulation with more contracture of right miles t such that he now walks on the ball of the right foot, inducing 2 pressure sores. No other change of function. CHIARI BRAIN STEM FUNCTION: Current symptoms: Patient reports no signs or Sx, and this is not expected with this condition. SYRINX OF SPINAL CORD: Current Symptoms: Patient reports no change hand strength TETHERING: no change bowel pattern, urinary pattern, skin sensation and urinary infections dryness/continence. However, the right foot deforimty is worse, as described above--probabl y orthopedic only. NEUROGENIC BLADDER: yes Surgical Alterations: none. Current Treatment: Clean intermittent catheterization: yes size: 12 Self: yes , without supervisiosn but by schedule at school and reminders at home. He is no t particpating often at home and would like to skip it and go out and play. Last UTI was before his circumcision years ago. Current Symptoms: none. Generally dry with above protocol. Current pattern of bladder continence: TABLE OF BLADDER INCONTINENCE Continence or Dryness DRY DRY DAMP DAMP SOAKED SOAKED Without intervention With Intervention Without intervention With Intervention Without Inte rvention With Intervention Always Dry X Monthly Incontinence Weekly Incontinence Daily Incontinence DEFINITION: BLADDER CONTINENCE: Dry, with or without interventions, during the day. INTERVENTION: Means treatment, procedure, and/or medication. Examples include clean intermi ttent catherization (CIC), Oxybutynin. NEUROGENIC BOWEL: yes Current Treatment: sits on comode as part of AM care, and again after dinner. Current Symptoms: accidents Patterns of Evacuation: TABLE OF BOWEL INCONTINENCE Continence Aware Uses Toiliet Aware Uses Toiliet Schedule or Remind to Use Toilet Schedule or Remind to Use Toilet Not Aware Evacuated in Diaper Not Aware Evacuated in Diaper Without intervention With intervention Without intervention With intervention Without intervention With intervention Always Incontinent Monthly Incontinence Weekly Incontinence X Daily Incontinence Never Incontinent DEFINITION: NOT AWARE means not able to reach the commode and evacuate without soiling. Has neither sen sation of fullness, urge to evacuate, or sense of full diaper or excrement in underwaer or d iaper. Not Aware Without interventin means no bowel program, no treatment, no medication, an d hence no continence. ORTHOPEDICS: Current Symptoms: Spine: non sypmtomatic Surgical Scar : withoutparasthesia Hips: ROM normal Knees ROM:normal Ankle ROM: normal on left; on the right there eis equinous defomrity with dorsiflexed toes, can bring heel to the floor. Has two pressure sores plantar surface right foot. Surgeries: previous surgery right foot, but has gotten worse again. SKIN/ INTEGUMENT Current Symptoms:Color normal ROS: except as stated above the rest of the review of systems is entirely negative. ALLERGIES: Allergies Allergen Reactions Amoxicillin DELETE EDUCATION/INDEPENDENCE: Resource room for math, otherwise mainistreamed. Mother reports re port card As and Bs.. PHYSICAL EXAM: Wt. 32.9Kg. Height 144.2 cm. HC53cm. BMI 15.8kg/m. BP1-2/62. General ap pearance: pink mucous membranes, without clubbing. HEENT: Normocephalic. EOMs are full. PE RRLA. Red reflexes are symmetrical. No nystagmus or strabismus. Fundi are benign with normal cupping bilaterally. TMs have normal landmarks and mobility. No significant oral lesions. T he neck is supple without mass or deviation except for the APPLICATION SECURITY SPECIALIST shunt to the left side. Chest and back: well healed linear surgical scar in lumbar region, without parasthesia, drainage, hirsutism, or discoloration. Lungs are clear. Heart: Regular rhythm and physiologic sounds. Abdomen: No organomegaly or masses, tenderness or guarding. Genitalia: Deferred to Urology . Pulses normal. Lymphatics normal. Skin: no significant lesions, 2 decubitus ulcers bottom right foot. Orthopedics: fully functional except lower right extremity with thin calf, equi nus deformity of foot with toes dorsiflexed and immobile. Neurological: Oriented, age approp riate conversation and behavior. Cranial nerves 2-12 intact. Normal function in the upper extremities. Sensory and motor level is unchanged, intact fully on left, and L4 on right. Strength across the knees is full on left, diminished on the right in the quadriceps and in the hamstsrings. DTRs in the knees are 0/4 on right, 3/4 on the left.. 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 Pressure sore right foot, from deformity. RECOMMENDATIONS: 1. Add polyethylene glycol 1 cap full (17 gm) to iquid once daily, preferably evening. Sit on comode as per current AM care schedule. 2. I have completed medical referral portion of application for services at [facility] and given the family instructions to complete and deliver the form to [facility]. 3. Clinic nurse will elizabeth the fmaiy in 2 weeks to check on efficay of improved bowel program . 4. We refer him back to his PCP to treat the Migraine headaches as per usual protocols. 5. Continue CIC. 6. Consultaiton today by Neurosurgery, urology, PT, social work. 7. Return in one year for next routine full exam. Note that this patient is at risk of com plications at any time incuding change in bowel or bladder function, renal failure, pressure sores, orthopedic exacerbation, spinal cord tethering, etc. Today's finding, interpretations, and recommendations were shared with the parents who unde rstand and concur. Pete Escobar was seen by full Spina Bifida Team including Cecilio meehan (Environmental Services Manager) or Peditric Nurse Practitioner, Nursing, Social Work, Physical T herapy, Urology, Neurosurgery. Robert Johnson MD Environmental Services Manager Spina Bifida Program PH: [phone] Email: [email or web address] do cumented in this encounter Plan of Treatment Not on filedocumented as of this encounter Procedures + +--------+ + + + | Procedure Name | Priori | Date/Time | Associated Diagnosis | Comments | | | ty | | | | + +--------+ + + + | UA 10 DIP POC | Routin | 04/21/2007 | Spina Bifida | Results for this | | | e | 10:15 AM | without Mention of | procedure are in the | | | | PDT | Hydrocephalus, | results section. | | | | | Unspecified Region | | | | | | Neurogenic Bladder, | | | | | | NOS | | + +--------+ + + + documented in this encounter Results UA ZAC ONLY, POC (04/21/2007 10:15 AM PDT) + +--------+ + + + | Component | Value | Ref Range | Performed | Pathologist | | | | | At | Signature | + +--------+ + + + | COLOR(UR) | yellow | | [facility] | | | | | | OF CARE | | | | | | TESTS | | + +--------+ + + + | APPEARANCE | cloudy | | [facility] | | | | | | OF CARE | | | | | | TESTS | | + +--------+ + + + | LEUKOCYTE | neg | Negative | [facility] | | | ESTERASE | | | OF CARE | | | | | | TESTS | | + +--------+ + + + | NITRITES | neg | Negative | [facility] | | | | | | OF CARE | | | | | | TESTS | | + +--------+ + + + | UROBILINOGE | neg | 0.2 - 1 HEATHER | [facility] | | | N | | UNITS | OF CARE | | | | | | TESTS | | + +--------+ + + + | PROTEIN(LAB | neg | mg/dL | [facility] | | | ) | | | OF CARE | | | | | | TESTS | | + +--------+ + + + | PH(UR) | 5.0 | 5 - 8.5 | [facility] | | | | | | OF CARE | | | | | | TESTS | | + +--------+ + + + | BLOOD | neg | Negative | [facility] | | | | | | OF CARE | | | | | | TESTS | | + +--------+ + + + | SPECIFIC | 1.010 | 1.004 - 1.03 | [facility] | | | GRAVITY | | | OF CARE | | | | | | TESTS | | + +--------+ + + + | KETONES | neg | Negative mg/dL | [facility] | | | | | | OF CARE | | | | | | TESTS | | + +--------+ + + + | BILIRUBIN | neg | Negative | [facility] | | | | | | OF CARE | | | | | | TESTS | | + +--------+ + + + | GLUCOSE(UR) | neg | Negative mg/dL | [facility] | | | | | | OF CARE | | | | | | TESTS | | + +--------+ + + + + + | Specimen | + + | Urine | + + + + + + + | Performing | Address | City/State/Zipcode | Phone Number | | Organization | | | | + + + + + | [facility] | [address] | [place], [place] | | | [place] | [address] | [address] | | | TESTS | | | | + + + + + | [facility] | [address] | [place], [place] | | | TESTS | [address] | [address] | | + + + + + documented in this encounter Visit Diagnoses + + | Diagnosis | + + | Spina bifida without mention of hydrocephalus, unspecified region - Primary | + + | Neurogenic bladder, NOS | + + documented in this encounter
--- OUTSIDE RECORDS SUMMARY | ~2019-10-26 | XMS | Encounter Summary ---
Demographics + + + | Address | [address] | | | [place] [address] | + + + | Home Phone [...] [place] | | | | | [address] | | + + + + + Care Team Providers + +------+ + | Care Crude Oil Treater Name | Role | Phone | + [...] | | [facility] Spina | Diagnoses | Efraín Kaufman Spina | | | | Bifida | Spina | Umm Salcedo MD | Bifida [address] | | | | | bifida | PEDS | [address] | | | | | without | SPECIALISTS | Mailcode: | | | | | mention of | OF [place] | [facility] | | | | | hydrocephalu | [address] | [place], [place] | | | | | s, lumbar | [address] | [address] | | | | | region | [address] | Phone: | | | | | Procedures | [place], | [phone] | | | | | [place] | [place] [address] | Fax: | | | | | PATIENT | Phone: | [phone] | | | | | LEVEL [facility] | [phone] | | | | | | PHYS THERAPY | Fax: | | | | | | EVALUATION | [phone] | | | | | | [place] | | | | | | | OCCUPATIONAL | | | | | | | THERAPY | | | | | | | EVALUATION | | | | | | | [place] | | | | | | | US,RETROPERI | | | | | | | T, | | | | | | | B-SCAN/REAL | | | | | | | TIME,COMPLET | | | | | | | E CB, WF, | | | | | | | JA, KI | | | +--------+--------+ + + + + Encounter Details +--------+---------+ + + + | Date | Type | Department | Care Team | Description | +--------+---------+ + + + | 04/14/ | Office | Urology -Pediatric | Justice Douglas, | Neurogenic bladder, | | 2011 | Visit | [address] | [address] [facility] | NOS; | | | | Mailcode: [facility]W[address] | [address] | Lipomyelomeningocele | | | | [place] | [place], [place] | ; Neurogenic bowel | | | | [place], [place] | [address] | | | | | [address] | [phone] | | | | | [phone] | | | +--------+---------+ + + + [...] + + + | Blood Pressure | 119/67 | 04/14/2012 1:14 PM | | | | | PDT | | + + + + + | Pulse | 77 | 04/14/2012 1:14 PM | | | | | [...] + + + + | Weight | 54.7 kg (120 lb 9.5 | 04/14/2012 1:14 PM | | | | oz) | PDT | | + + + + + | Height | 170.5 cm (5' 7.13") | 04/14/2012 1:14 PM | | | | | PDT | | + + + + + | Body Mass Index | 18.82 | 04/14/2012 1:14 PM | | | | | PDT | | + + + + + documented in this encounter Patient Instructions Patient Instructions Justice Douglas MD - 04/14/2012 4:19 PM PDTGarchikis needs to catheter ize at least 4 times a day Continue to irrigate the bladder daily. He can stay off the Ditropan If he ever has severe abdominal pain he needs to be evaluated for a possible bladder ruptur e (risk about 2-3 % in patients who have had a bladder augmentation like Pete). If he decides he doesn't want the chait tube you need to contact pediatric surgery to have the tube removed call [phone] and ask to speak with one of the pediatric surgery nurses about this. documented in this encounter Progress Notes Justice Douglas MD - 04/14/2012 3:08 PM PDTFormatting of this note might be different fro m the original. Pediatric Urology Clinic Note Patient: Pete Orozco [id number] Date of Visit: 04/14/2012 Attending Provider: Naty Douglas MD History of Present Illness: Pete Orozco is a 16 y.o. male who comes in for fu - Had bladder augmentation last year. Last seen when the SP tube was removed. - Catheterizing 3-4 times. Depends on what he is doing. - Caths am, once at school, dinner time, and before bed -Sometimes skips the bedtime cath. - Urine control has been ok. It is better than before the surgery. - Wears pullup - Occasional stool accidents - Has urine accidents occasionally. About once every 2 weeks. -No Problems passing the catheters. No UTIs. Irrigates in the evenings- uses catheter tipped syrige. Uses saline solution. Goes in and out 2-3 times. Not using Chait. Threw away the connector. Only used the chait a couple of times. Is having some bleeding from the tube. Also has some pain and the tube catches on things. He is afraid it will hurt if the tube i s removed. Feels that his sense of needing to have a bm is better since the surgery. BMs about every other day. Urologic Problems Neurogenic Bladder, NOS [596.54] Comment: Inconsistent CIC Past Medical History: Past Medical History Diagnosis [...] upward and to the right noted on exam-9 Lipomyelomeningocele Past Surgical History: Past Surgical History Procedure Date Pr release tethered spinal cord,lumbr 02/20/2003 First repair, release of lipomyelomeningocele 01/1996 Right ankle/foot orthopedic surgery 12/2004 DR. LUNA COTTRELL Right ankle/foot complex orthopedic surgery 10/26/07 DR. MERARY AYALA ([facility]) Right ankle/foot orthopedic surgery 06/2009 DR. MERARY AYALA ([facility]) Cystoscopy and bladder augmentation (ileocystoplasty with 30 cm of small bowel) 011 Laparoscopic chait cecostomy tube placement 06/26/2011 Current Medication List Name Sig CATHETER 1 [...] of neurogenic bladder, bowel (596.54, 564.81) . IBUPROFEN 200 MG TAB Take 1 Tab by mouth every six hours as needed. IBUPROFEN 600 MG TAB Take 1 Tab by mouth every eight hours as needed for moderate pain. Conrad e with food and a full glass of water. OXYCODONE 5 MG TAB Take 1 Tab by mouth every six hours as needed for severe pain. SULFAMETHOXAZOLE-TRIMETHOPRIM 800 MG-160 MG TAB Take 1 Tab by mouth two times daily. Allergies: Allergies Allergen Reactions Amoxicillin Rash Latex Hives and Itching Morphine Hives and Swelling Family/Social Hx: Here with his Aunt. Living in [facility] with mother. Review of Systems: General: negative. Musculoskeletal: Foot pain with possible infection. Gastrointestinal: As above Genitourinary: As above Physical Exam: General: alert, cooperative and no distress Ht 170.5 cm (5' 7.13") (31 %ile), Wt 54.7 kg (120 lbs 9.5 oz) (21 %ile), Weight for age(%) 21.18%, BMI for age(%) 20.92%, Length for age(%) 30.91%, BP 119/67, Pulse 77, BMI 18.82 k g/(m^2). Abdominal: Soft. Well healed midline scar. Nl umbilicus. The Chait is in the RLQ. Some granulation tissue at site. Wearing Pull up. Results Reviewed: US KIDNEY & BLADDER: ULTRASOUND OF THE KIDNEYS AND BLADDER,04/14/12 HISTORY: Rule out hydronephrosis; status post bladder augmentation in June 2011 COMPARISON: 10/02/10 TECHNIQUE: Real-time ultrasound of the kidneys and bladder was performed. FINDINGS: The bladder wall is lobular in contour consistent with prior augmentation, with debris seen in the bladder lumen. The estimated bladder volume at the beginning of the examination was 120 cc. The patient did catheterize at the conclusion of the study. The post catheterization volume measures approximately 4 cc. The right kidney is normal in size, cortical echogenicity, and corticomedullary differentiation. The right kidney measures 9.4 x 4.3 x 5.1 cm, 109 cc in volume. There is no focal abnormality or pelvocaliectasis. The left kidney is normal in size, cortical echogenicity, and corticomedullary differentiation. The left kidney measures 9.3 x 4.4 x 4.6 cm,100 cc in volume. There is no left pelviectasis. Bilateral renal lengths measure between the fifth and 50th percentiles for age. IMPRESSION: 1. Normal kidneys. 2. Status post bladder augmentation. Persistent bladder debris. Attending Radiologists: Arline Car M.D. Author: Arline Car M.D. I have personally viewed this procedure/exam, reviewed this report, and made changes to it where appropriate. Final/Electronically signed / Arline Car 04/14/2012 14:52 PM Urine showed Nitr and LE Impression: [facility] S/p Bladder augmentation using ileum 1. Neurogenic bladder, NOS 2. Lipomyelomeningocele 3. Neurogenic bowel Plan: Doing ok from the standpoint. Needs to cath 4-5 times per day Discussed risk of perforation Continue to irrigate to avoid stone formation FU 1 yr with renal us. BMP next year. AVS mailed to mother with instructions. Given # for Ped Surg if wants to have Chait removed. Naty Douglas MD, FAAP, FACS manager sign Pediatric Urology documented in this e ncounter Plan of Treatment Not on filedocumented as of this encounter Procedures + +--------+ + + + | Procedure Name | Priori | Date/Time | Associated Diagnosis | Comments | | | ty | | | | + +--------+ + + + | UA 10 DIP POC | Routin | 04/14/2012 | | Results for this | | | e | 1:16 PM | | procedure are in the | | | | PDT | | results section. | + +--------+ + + + documented in this encounter Results UA DIPSTICK 10 DIP W/O MICRO, POC (04/14/2012 1:16 PM PDT) + + + + + + | Component | Value | Ref Range | Performed | Pathologist | | | | | At | Signature | + + + + + + | COLOR (UA | dark yellow | | [facility] | | | DIP), POC | | | [facility] | | | | | | [facility] | | | | | | OF CARE | | | | | | TESTS | | + + + + + + | APPEARANCE | cloudy | | [facility] - | | | (UA DIP), | | | [facility] | | | POC | | | [facility] | | | | | | OF CARE | | | | | | TESTS | | + + + + + + | LEUKOCYTES | mod | Negative | [facility] - | | | (UA DIP), | | | [facility] | | | POC | | | [facility] | | | | | | OF CARE | | | | | | TESTS | | + + + + + + | NITRITES | pos | Negative | [facility] - | | | (UA DIP), | | | [facility] | | | POC | | | [facility] | | | | | | OF CARE | | | | | | TESTS | | + + + + + + | UROBILINOGE | 0.2 | 0.2 HEATHER | [facility] - | | | N (UA DIP), | | UNITS | [facility] | | | POC | | | [facility] | | | | | | OF CARE | | | | | | TESTS | | + + + + + + | PROTEIN (UA | trace | Negative to | [facility] - | | | DIP), POC | | Trace | [facility] | | | | | | [facility] | | | | | | OF CARE | | | | | | TESTS | | + + + + + + | PH (UA | 6.5 | 5 - 8 | [facility] | | | DIP), POC | | | [facility] | | | | | | [facility] | | | | | | OF CARE | | | | | | TESTS | | + + + + + + | BLOOD (UA | large | Negative | [facility] - | | | DIP), POC | | | [facility] | | | | | | [facility] | | | | | | OF CARE | | | | | | TESTS | | + + + + + + | SPECIFIC | 1.020 | 1.005 - 1.03 | [facility] | | | GRAVITY (UA | | | [facility] | | | DIP), POC | | | [facility] | | | | | | OF CARE | | | | | | TESTS | | + + + + + + | KETONES (UA | neg | Negative | [facility] - | | | DIP), POC | | | [facility] | | | | | | [facility] | | | | | | OF CARE | | | | | | TESTS | | + + + + + + | BILIRUBIN | neg | Negative | [facility] - | | | (UA DIP), | | | [facility] | | | POC | | | [facility] | | | | | | OF CARE | | | | | | TESTS | | + + + + + + | GLUCOSE (UA | neg | Negative to | [facility] - | | | DIP), POC | | Trace mg/dL | [facility] | | | | | | [facility] | | | | | | OF [...] DRAPER | [address] | [place], [place] | | | [facility] | [address] | [address] | | | TESTS | | | | + + + + + documented in this encounter Visit Diagnoses + + | Diagnosis | + + | Neurogenic bladder, NOS | + + | Lipomyelomeningocele Spina bifida without mention of hydrocephalus, lumbar region | + + | Neurogenic bowel | + + documented in this encounter
--- OUTSIDE RECORDS SUMMARY | ~2019-10-26 | XMS | Encounter Summary ---
Demographics + + + | Address | [address] | | | [place] [address] | + + + | Home Phone | | + + + | Preferred Language | Unknown | + + + | Marital Status | Single | + + + | Buddhism Affiliation | CHR | + + + | Race | White | + + + | Ethnic Group | Not or | + + + Author + + + | Author | [facility] | + + + | Organization | [facility] | + + + | Address | Unknown | + + + | Phone | Unavailable | + + + Support + + + + + | Name | Relationship | Address | Phone | + + + + + | Sarahi Orozco | ECON | [address] | | | | | [place] | | | | | [address] | | + + + + + Care Team Providers + +------+ + | Care Field Recorder Name | Role | Phone | + [...] Clinic | | | | | | [facility], [address] | | | | | | [place], [place] | | | | | | [address] | | | | | | [phone] | | | +--------+ + + + [...] as of this encounter Progress Notes Interface, [employer] In - 02/15/2007 8:49 AM PDT CLINIC [...] signed a permit. Shiraz Vance Jr., M.D. Therapist'S Assistant, Neurosurgery P/constantino cc: GEOFF NG MD [address] [place] [address] [place] [phone] documented in this encounter Plan of Treatment Not on filedocumented as of this encounter Visit Diagnoses Not on filedocumented in this encounter"
--- OUTSIDE RECORDS SUMMARY | ~2019-10-26 | XMS | Encounter Summary ---
Demographics + + + | Address | [address] | | | [place] [address] | + + + | Home Phone [...] [place] | | | | | [address] | | + + + + + Care Team Providers + +------+ + | Care Long Term Care Pharmacist Name | Role | Phone | + +------+ + | Dajuan Jerome MD | PCP | | + +------+ + Encounter Details +--------+ + + + + | Date | Type | Department | Care Team | Description | +--------+ + + + + | 01/16/ | Transcribed | | Dictation, Other | Transcribed | | 1998 | | | | | +--------+ + [...] as of this encounter Progress Notes Interface, Contracts Advisor In - 01/01/2007 6:29 AM [facility] [address], [place], [place] [address] January 16, 1999 SARAH SOLARES MD [address], [place] [address] RE: ADAMA OROZCO MR#: [id number] Solares: We are sharing another patient! I have been following Adama since . He came in today for a routine visit in [facility]. I last saw him in March 1998. Things have been medically stable except for back pain at night. Health maintenance: He is not yet involved in Early Intervention services but may get involved in [employer]. 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 However, he runs and walks well and gets on his toes spontaneously. On exam today, deep tendon reflexes are 2/4 on the left, 1/4 on the right; as before Babinski's are full on the left and absent on the right. The lesion over the back is well healed and there is a midline surgical scar from the upper lumbar through the sacral region; no paresthesia, discoloration or pseudism, or drainage. There is a lipomatous mass over the sacral region; there is "step sign" at the midlumbar region (?L3?). Orthopedics: I had previously reported difference in foot size but I do not see it today. Development: He is evaluated today by Occupational Therapy. His developmental landmarks at today's testing would suggest a Standard Score of at least 80. Neurogenic bowel and bladder: No constipation. He is showing some signs of readiness for toilet training. This has been dragging on for many months, but there are some signs of sensation and control. For example, he will take off his diaper for changing, and micturate volitionally; at other times he is wet without control. He has not had a urinary tract infection since infancy. He has a good stream. Renal ultrasound today shows essentially normal kidneys bilaterally, with perhaps a hint of hydronephrosis on the left. He spontaneously peed into a cup and that is clear on urinalysis, according to a Urologist. I do not think we should do anymore at this time with regards to evaluating urologic status, but rather give him continued opportunity to spontaneously gain bowel and bladder control. Back pain: He has had now two to four weeks of almost nightly lower back discomfort. It awakens him, and sometimes he cries. It is relieved by massaging. Analgesics have never been tried. There is no apparent loss of any functions, as described above. Sometimes this discomfort has happened during the day. This is reviewed with Dr. Vance. We agreed to see him again soon. If his symptoms persist or exacerbate, then further evaluation, such as urodynamics and/or MRI, would be indicated. Physical Examination: Weight 14.2 kg (50th percentile), height 92.7 cm (25th percentile), head circumference 50 cm (50th percentile). Blood pressure 105/60, pulse 133. GENERAL APPEARANCE: Well male, no somatic abnormalities. HEENT: Normocephalic. Extraocular movements are full. Pupils are equal, round, and reactive to light and accommodation, red reflexes are symmetrical, no nystagmus or strabismus; cupping is normal bilaterally. Tympanic membranes are normal landmarks bilaterally. No significant oral lesions. No neck masses. The spine is straight with a well-healed midline scar, as described above. LUNGS: Clear. HEART: Regular rhythm and physiologic sounds. ABDOMEN: No organomegaly or masses. Genital and rectal exams are deferred. Pulses are normal. Lymphatics are normal. SKIN: No significant lesions. ORTHOPEDICS: No contractures or deformities. NEUROLOGIC EXAMINATION: As described above. Discussion: Except for the persistent back pain, things are stable. The back pain may be a sign of spinal cord tethering so it needs to be monitored closely. We should have him back in three months, and if these symptoms persists, then urodynamics should be performed. MRI might also be considered. He is also receiving Early Intervention services, but these may have to be reactivated as they have moved now into your area. Everything else is stable. Next full examination in six months. It was good to see him again. Please call if I can offer any additional assistance in clarification, liaison, or coordination. Sincerely, Robert Johnson M.D. Back End Developer, Pediatrics Developmental Peditrician RASHARD/anna documented in this encounter Plan of Treatment Not on filedocumented as of this encounter Visit Diagnoses Not on filedocumented in this encounter
--- OUTSIDE RECORDS SUMMARY | ~2019-10-26 | XMS | Encounter Summary ---
Demographics + + + | Address | [address] | | | [place] [address] | + + + | Home Phone [...] Author + + + | Author | [facility] | + + + | Organization | [facility] | + + + | Address | Unknown | + + + | Phone | Unavailable | + + + Support + + + + + | Name | Relationship | Address | Phone | + + + + + | Sarahi Orozco | ECON | [address] | | | | | [place] | | | | | [address] | | + + + + + Care Team Providers + +------+ + | Care Supervisor Inspecting Name | Role | Phone | + +------+ + | Dajuan Jerome MD | PCP | | + +------+ + Encounter Details +--------+ + + + + | Date | Type | Department | Care Team | Description | +--------+ + + + + | 06/01/ | Office | [facility] | Report, Outpatient | Progress Note | | 2001 | Visit-Trans | | Consultation | | | | cribed | | [...] as of this encounter Progress Notes Interface, Auto Body Repairer In - 07/10/2006 3:09 AM PDTCLINIC DATE: 06/01/2002 CLINIC NAME: [facility] DISCIPLINE: PHYSICAL THERAPY Pete attended clinic today accompanied by both of his parents. 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 He had specific right lower limb weakness discerned at his last clinic visit in April of this year, which was of greater magnitude than had been seen previously. We had recommended return to clinic in a few months, but he came earlier because of a recent episode in which he had numbness and apparent functional weakness affecting him distally in his left lower limb. I evaluated Pete today with Ngoc Weeks, physical therapy corporate intern, who did some of Pete's examination. Physical examination of Pete today was unchanged from his examination in April of this year. That is, he continues to show weakness of his anterior compartment muscles in the right lower limb, but he had normal functioning throughout his left lower limb. His gait and his functional performance in advanced dynamic upright activities were unchanged today compared to that visit of May 04, 2002. Pete's status today was unchanged from his previous clinic visit, and I conveyed this to neurosurgery. He does have weakness that is different from what was described several years ago, but it does not appear to be progressing rapidly and does not appear to have had any discernible effects in his left lower limb. The episode described was inexplicable by findings today. I will plan to reevaluate Pete at his next scheduled full team appointment with the [facility] or sooner upon request. 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 This was repaired in January of 1996. He has a neurogenic bladder and has had only a single urinary tract infection in his life, which occurred as an infant. There was concern earlier this month when the child was staying with his aunt about a possible urinary tract infection. He complained of dysuria and was seen by a doctor in [place] who obtained a urinalysis that grew some bacteria. He was given a course of cephalexin. The child apparently took a few capsules but did not like the capsule dissolving in his mouth and stopped taking the medication. He has been asymptomatic since that time. His supposed to catheterize every four hours with an 8 K[place] catheter, and he apparently does this himself without parents' involvement. It is unclear whether or not he is truly catheterizing, although he states that he is. He is only damp in between catheterizations and Depends, according to the family, but does have fecal accidents once or twice per day. At his visit on 11/17/2001, he was noted to have a new mild grade II hydronephrosis and was started on Ditropan at 5 cc twice per day. A follow-up ultrasound sound at his visit one month ago showed no evidence of hydronephrosis. At his last visit one month ago, there was concern about possible neurogenic bladder due to concerns about lower extremity weakness and gait abnormality. Since then, Pete has undergone a magnetic resonance imaging (MRI) scan, and re-consultation today with the Pediatric Neurosurgery Service reveals no concerns about a possible tethered cord. A catheterization log was brought in today that shows he is catheterizing three to four times per day and obtaining amounts from 3 cc to 300 cc. Most volumes average around 100 cc. ASSESSMENT: 1) Neurogenic bladder. 2) Neurogenic bowel 3) Resolution of previously noted left hydronephrosis. 4) Questionable compliance with catheterization. PLAN: 1) Continue Ditropan, 5 mg twice per day. 2) Continue intermittent catheterization four to five times per day. I again discussed the important of the family being involved with Pete's intermittent catheterization, making sure that he is doing it as we have discussed. I also reminded them of the potential for renal failure and the consequences of that if they are not compliant with catheterization. 3) Questionable recent urinary tract infection. I am not sure if this asymptomatic colonization with some minor penile irritation or if he truly had a symptomatic cystitis. It is unusual that we should have such complete resolution of symptoms without apparently taking any medication. 4) If he is otherwise doing well, I will plan to see him back in six months with an ultrasound and serum chemistries. Danny Dhaliwal M.D. Electrician'S Helper Clinical Professor Pediatric Urology DBL/x36 cc: Morris Forbes [place] [id number] signed by Interface, Auto Body Repairer In at 07/10/2006 3:[address] [facility] umented in this encounter Plan of Treatment Not on filedocumented as of this encounter Visit Diagnoses Not on filedocumented in this encounter"
--- OUTSIDE RECORDS SUMMARY | ~2019-10-26 | XMS | Encounter Summary ---
Demographics + + + | Address | [address] | | | [place] [address] | + + + | Home Phone | | + + + | Preferred Language | Unknown | + + + | Marital Status | Single | + + + | Zoroastrianism Affiliation | CHR | + + + | Race | White | + + + | Ethnic Group | Not or | + + + Author + + + | Author | [facility] | + + + | Organization | [facility] | + + + | Address | Unknown | + + + | Phone | Unavailable | + + + Support + + + + + | Name | Relationship | Address | Phone | + + + + + | Sarahi Orozco | ECON | [address] | | | | | [place] | | | | | [address] | | + + + + + Care Team Providers + +------+ + | Care Rug Designer Name | Role | Phone | + +------+ + | No Pcp Per Patient | PCP | Unavailable | + +------+ + Encounter Details +--------+ + + + + | Date | Type | Department | Care Team | Description | +--------+ + + + + | 02/22/ | Pharmacy | Outpatient Retail | | | | 2013 | Visit | [facility] | | | | | | [address] | | | | | | [place], [place] | | | | | | [address] | | | | | | [phone] | | | +--------+ + + + [...]
--- OUTSIDE RECORDS SUMMARY | ~2019-10-26 | XMS | Encounter Summary ---
Demographics + + + | Address | [address] | | | [place] [address] | + + + | Home Phone [...] Author + + + | Author | [facility] | + + + | Organization | [facility] | + + + | Address | Unknown | + + + | Phone | Unavailable | + + + Support + + + + + | Name | Relationship | Address | Phone | + + + + + | Sarahi Orozco | ECON | [address] | | | | | [place] | | | | | [address] | | + + + + + Care Team Providers + +------+ + | Care Welding Lead Burner Name | Role | Phone | + +------+ + | Dajuan Jerome MD | PCP | | + +------+ + Reason for Visit + + + | Reason | Comments | + + + | Spina bifida | | + + + | Hematuria | | + + + Encounter Details +--------+ + + + + | Date | Type | Department | Care Team | Description | +--------+ + + + + | 10/15/ | Telephone | [facility] at [facility] | Robert Johnson MD | Spina bifida; | | 2008 | | Floor [address] | [address] | Hematuria | | | | St Mailcode: [facility] | [place], [place] | | | | | [facility], [place] | [address] | | | | | [address] | [phone] | | | | | [phone] | | | +--------+ + + + [...] Neurogenic bladder, NOS | + + | UTI (urinary tract infection) Urinary tract infection, site not specified | + + documented in this encounter"
--- OUTSIDE RECORDS SUMMARY | ~2019-10-26 | XMS | Encounter Summary ---
Demographics + + + | Address | [address] | | | [place] [address] | + + + | Home Phone [...] [place] | | | | | [address] | | + + + + + Care Team Providers + +------+ + | Care Dietetics Teacher Name | Role | Phone | + +------+ + | Umm Kaufman MD | PCP | | + +------+ + Reason for Referral Consultation (Routine) +--------+--------+ + + + + [...] | | | | mention of | [place], [place] | | | | | | hydrocephalu | [address] | | | | | | s, lumbar | Phone: | | | | | | region | [phone] | | | | | | Neurogenic | Fax: | | | | | | bladder, NOS | [phone] | | | | | | Neurogenic [...] | +--------+ + + + + | 01/21/ | Straightener | [facility] at [facility] | Robert Johnson MD | Lipomyelomeningocele | | 2010 | | Floor [address] | [address] | ; Neurogenic | | | | St Mailcode: [facility] | [place], [place] | bladder, NOS; | | | | [facility] [place] | [address] | Neurogenic bowel | | | | [address] | [phone] | | | | | [phone] | | | +--------+ + + + [...]
--- OUTSIDE RECORDS SUMMARY | ~2019-10-26 | XMS | Encounter Summary ---
Demographics + + + | Address | [address] | | | [place] [address] | + + + | Home Phone | | + + + | Preferred Language | Unknown | + + + | Marital Status | Single | + + + | Adventism Affiliation | CHR | + + + | Race | White | + + + | Ethnic Group | Not or | + + + Author + + + | Author | [facility] | + + + | Organization | [facility] | + + + | Address | Unknown | + + + | Phone | Unavailable | + + + Support + + + + + | Name | Relationship | Address | Phone | + + + + + | Sarahi Orozco | ECON | [address] | | | | | [place] | | | | | [address] | | + + + + + Care Team Providers + +------+ + | Care Sanitation Worker Cleaning Equipment Name | Role | Phone | + +------+ + | Dajuan Jerome MD | PCP | | + +------+ + Reason for Referral Office Visit - E/M Services (Routine) +--------+--------+ + + + + | Status | Reason | Specialty | Diagnoses / | Referred By | Referred To | | | | | Procedures | Contact | Contact | +--------+--------+ + + + + | Closed | | [facility] Spina | Diagnoses | John, | Cdr Spina | | | | Bifida | Spina | RAKAN [place] | Bifida [address] | | | | | bifida | [address] | [place] | | | | | without | Cyril | Mailcode: | | | | | mention of | [address] | [facility] | | | | | hydrocephalu | [place], [place] | [place], [place] | | | | | s, lumbar | [address] | [address] | | | | | region | Phone: | Phone: | | | | | Neurogenic | [phone] | [phone] | | | | | bladder, NOS | Fax: | Fax: | | | | | Neurogenic | [phone] | [phone] | | | | | bowel | | | | | | | Procedures | | | | | | | X-RAY | | | | | | | CYSTOGRAM, | | | | | | | VOID | | | | | | | W/HYDRODYN | | | | | | | W/URETHRCYST | | | | | | | & INJECTION | | | | | | | CO COMPLEX | | | | | | | | | | | | | | CYSTOMETROGR | | | | | | | AM CO | | | | | | | ELECTRO-UROF | | | | | | | LOWMETRY, | | | | | | | FIRST CO | | | | | | | ANAL/URINARY | | | | | | | MUSCLE | | | | | | | STUDY CO | | | | | | | INTRAABDOMIN | | | | | | | AL PRESSURE | | | | | | | TEST CO | | | | | | | URETHROCYSTO | | | | | | | GRAM+VOIDING | | | | | | | CO | | | | | | | INJECTION | | | | | | | FOR BLADDER | | | | | | | X-RAY CO | | | | | | | URINE | | | | | | | VOIDING | | | | | | | PRESSURE | | | | | | | STUDY | | | | | | | urodynamic | | | | | | | testing | | | +--------+--------+ + + + + Reason for Visit Office Visit - E/M Services (Routine) +--------+--------+ + + + + | Status | Reason | Specialty | Diagnoses / | Referred By | Referred To | | | | | Procedures | Contact | Contact | +--------+--------+ + + + + | Closed | | [facility] Spina | Diagnoses | John, | Cdr Spina | | | | Bifida | Spina | RAKAN Fisher | Bifida [address] | | | | | bifida | [address] | [address] | | | | | without | [place] | Mailcode: | | | | | mention of | [address] | [facility] | | | | | hydrocephalu | [place], [place] | [place], [place] | | | | | s, lumbar | [address] | [address] | | | | | region | Phone: | Phone: | | | | | Neurogenic | [phone] | [phone] | | | | | bladder, NOS | Fax: | Fax: | | | | | Neurogenic | [phone] | [phone] | | | | | bowel | | | | | | | Procedures | | | | | | | X-RAY | | | | | | | CYSTOGRAM, | | | | | | | VOID | | | | | | | W/HYDRODYN | | | | | | | W/URETHRCYST | | | | | | | & INJECTION | | | | | | | CO COMPLEX | | | | | | | | | | | | | | CYSTOMETROGR | | | | | | | AM CO | | | | | | | ELECTRO-UROF | | | | | | | LOWMETRY, | | | | | | | FIRST CO | | | | | | | ANAL/URINARY | | | | | | | MUSCLE | | | | | | | STUDY CO | | | | | | | INTRAABDOMIN | | | | | | | AL PRESSURE | | | | | | | TEST CO | | | | | | | URETHROCYSTO | | | | | | | GRAM+VOIDING | | | | | | | CO | | | | | | | INJECTION | | | | | | | FOR BLADDER | | | | | | | X-RAY CO | | | | | | | URINE | | | | | | | VOIDING | | | | | | | PRESSURE | | | | | | | STUDY | | | | | | | urodynamic | | | | | | | testing | | | +--------+--------+ + + + + Encounter Details +--------+ + + + + | Date | Type | Department | Care Team | Description | +--------+ + + + + | 11/15/ | Hospital | Radiology at [facility] | | | | 2008 | Encounter | [address] | | | | | | Mailcode: [address] | | | | | | [place] | | | | | | [place], [place] | | | | | | [address] | | | | | | [phone] | | | +--------+ + + + [...] as of this encounter Plan of Treatment + +---------+--------+ + + | Name | Type | Priori | Associated Diagnoses | Date/Time | | | | ty | | | + +---------+--------+ + + | X-RAY CYSTOGRAM, | Imaging | Routin | | 11/15/2009 3:30 PM | | VOID W/HYDRODYN | | e | Lipomyelomeningocele | PST | | W/URETHRCYST & | | | Neurogenic | | | INJECTION | | | bladder, NOS | | | | | | Neurogenic bowel | | + +---------+--------+ + + + +---------+--------+ + + | Name | Type | Priori | Associated Diagnoses | Order Schedule | | | | ty | | | + +---------+--------+ + + | X-RAY CYSTOGRAM, | Imaging | Routin | | 1 Occurrences | | VOID W/HYDRODYN | | e | Lipomyelomeningocele | starting 11/15/2009 | | W/URETHRCYST & | | | Neurogenic | | | INJECTION | | | bladder, NOS | | | | | | Neurogenic bowel | | + +---------+--------+ + + documented as of this encounter Visit Diagnoses + + | Diagnosis | + + | Lipomyelomeningocele Spina bifida without mention of hydrocephalus, lumbar region | + + | Neurogenic bladder, NOS | + + | Neurogenic bowel | + + documented in this encounter"
--- OUTSIDE RECORDS SUMMARY | ~2019-10-26 | XMS | Encounter Summary ---
Demographics + + + | Address | [address] | | | [place] [address] | + + + | Home Phone | | + + + | Preferred Language | Unknown | + + + | Marital Status | Single | + + + | Synagogue Affiliation | CHR | + + + [...] [place] | | | | | [address] | | + + + + + Care Team Providers + +------+ + | Care Training Engineer Name | Role | Phone | + +------+ + PCP | Unavailable | + +------+ + Encounter Details +--------+ + + + + | Date | Type | Department | Care Team | Description | +--------+ + + + + | 06/26/ | Results | [facility] at [facility] | Dave Malik MD | | | 2004 | Only | Floor [address] | [address] | | | | | St Mailcode: [facility] | Mar[address]za Ferreira [place], | | | | | [facility] [place], [place] | [place] [address] | | | | | [address] | [phone] | | | | | [phone] | | | +--------+ + + + [...] US KIDNEY & BLADDER | Routin | 07/02/2005 | | Results for this | | | e | 10:17 AM | | procedure are in the | | | | PDT | | results section. | + +--------+ + + + documented in this encounter Results US KIDNEY AND BLADDER (07/02/2005 10:17 AM PDT) + + + + + + | Component | Value | Ref Range | Performed | Pathologist | | | | | At | Signature | + + + + + + | US KIDNEY & | Radiologist 1: ROSMERY, | | | | | BLADDER | Morris ALTAMIRANORenal | | | | | | Ultrasound: 07/02/05. | | | | | | Comparison: 03/06/04. | | | | | | Clinical History: | | | | | | Neurogenic bladder. | | | | | | Findings: The kidneys | | | | | | are normal in location, | | | | | | morphology, | | | | | | andechogenicity. The | | | | | | right kidney measures | | | | | | 7.7 cm x 3.9 cm x 4.3 | | | | | | cmand has a volume of | | | | | | 66.9 cc. The left | | | | | | kidney measures 7.7 cm | | | | | | x3.7 cm x 3.9 cm and has | | | | | | a volume of 58 cc. | | | | | | Renal volumes | | | | | | arenormal for the | | | | | | patient's weight of 32 | | | | | | kg, with interval | | | | | | growth.No stones, cysts, | | | | | | or masses are seen. | | | | | | There is mild | | | | | | pelviectasismeasuring 8 | | | | | | mm in AP diameter, of | | | | | | the left kidney, which | | | | | | resultspost void. The | | | | | | bladder is trabeculated, | | | | | | as before. Pre-Cath | | | | | | bladder volumemeasures | | | | | | 199 cc. Post-Cath | | | | | | bladder volume measures | | | | | | 2.5 cc. IMPRESSION: 1. | | | | | | Mild left renal | | | | | | pelviectasis, which | | | | | | resolves | | | | | | postcatheterization. | | | | | | Otherwise normal | | | | | | kidneys. 2. | | | | | | Trabeculated bladder | | | | | | consistent with | | | | | | neurogenic bladder END | | | | | | IMPRESSION | | | | + + + + + + + + | Specimen | + + | | + + + +---------+ + + | Performing | Address | City/State/Zipcode | Phone Number | | Organization | | | | + +---------+ + + | [facility] DEPARTMENT OF | | | | | RADIOLOGY | | | | + +---------+ + + documented in this encounter Visit Diagnoses Not on filedocumented in this encounter"
--- OUTSIDE RECORDS SUMMARY | ~2019-10-26 | XMS | Encounter Summary ---
Demographics + + + | Address | [address] | | | [place] [address] | + + + | Home Phone [...] [place] | | | | | [address] | | + + + + + Care Team Providers + +------+ + | Care Domestic Helper Name | Role | Phone | [...] as of this encounter Progress Notes Interface, Glass Embosser In - 07/03/2005 5:02 AM PDT [id number] P[facility] G[facility]AN [facility] Date: 07/02/2005 Clinic Name: [facility] Discipline: Orthopedic. Diagnosis: Lipomyelomeningocele. History: This is a 9-year-old male here today with his father for routine full clinic followup. He has lumbosacral lipomyelomeningocele; he is ambulatory with an AFO on his right foot. At his last visit to our clinic in February 2004, he was noted to have significant deformity of his right foot in the form of fixed hindfoot varus, ankle equinus, and clawing of the toes. He was not braceable at that time. He was referred to Dr. Cobb who performed right plantar fasciotomy, intrinsic stripping and anterior tibialis tendon transfer along with flexor hallucis longus and flexor digitorum longus lengthening in December 2004. He has been in an AFO since then. Reyna Buckley M.D. / SALVADOR [id number] / [id number] / [id number] / [id number] documented i n this encounter Plan of Treatment Not on filedocumented as of this encounter Visit Diagnoses Not on filedocumented in this encounter"
--- OUTSIDE RECORDS SUMMARY | ~2019-10-26 | XMS | Encounter Summary ---
Demographics + + + | Address | [address] | | | [place] [address] | + + + | Home Phone | | + + + | Preferred Language | Unknown | + + + | Marital Status | Single | + + + | Yarsani Affiliation | CHR | + + + [...] [place] | | | | | [address] | | + + + + + Care Team Providers + +------+ + | Care Sheriff'S Sergeant Name | Role | Phone | + +------+ + | Umm Kaufman MD | PCP | | + +------+ + Reason for Visit + + + | Reason | Comments | + + + | Occupational therapy | | + + + Consultation (Routine) +--------+--------+ + + + + | Status | Reason | Specialty | Diagnoses / | Referred By | Referred To | | | | | Procedures | Contact | Contact | +--------+--------+ + + + + | Closed | | [facility] Sp[facility] | Diagnoses | [place], | Cdr Spina | | | | Bifida | Spina | Umm L, MD | Bifida [address] | | | | | bifida | PEDS | [address] | | | | | without | SPECIALISTS | Mailcode: | | | | | mention of | OF [place] | [facility] | | | | | hydrocephalu | [address] | [place], [place] | | | | | s, lumbar | [address] | [address] | | | | | region | [address] | Phone: | | | | | Procedures | [place], | [phone] | | | | | [place] EST | [place] [address] | Fax: | | | | | PATIENT | Phone: | [phone] | | | | | LEVEL V MI | [phone] | | | | | | PHYS THERAPY | Fax: | | | | | | EVALUATION | [phone] | | | | | | MI | | | | | | | OCCUPATIONAL | | | | | | | THERAPY | | | | | | | EVALUATION | | | | | | | MI | | | | | | | US,RETROPERI | | | | | | | T, | | | | | | | B-SCAN/REAL | | | | | | | TIME,COMPLET | | | | | | | E CB, WF, | | | | | | | JA, CELESTINA | | | +--------+--------+ + + + + Encounter Details +--------+---------+ + + + | Date | Type | Department | Care Team | Description | +--------+---------+ + + + | 04/14/ | Office | [facility] | Yolis Hamilton, | Lipomyelomeningocele | | 2011 | Visit | Floor [address] | OT | ; Delayed | | | | St Mailcode: [facility] | | milestones; Visual | | | | [facility] [place], [place] | | impairment | | | | [address] | | | | | | [phone] | | | +--------+---------+ + + + [...] + + + | Blood Pressure | - | - | | + + + + + | Pulse | - | - | | + [...] 54.7 kg (120 lb 9.5 | 04/14/2012 1:03 PM | | | | oz) | PDT | | + + + + + | Height | 170.5 cm (5' 7.13") | 04/14/2012 1:03 PM | | | | | PDT | | + + + + + | Body Mass Index | 18.82 | 04/14/2012 1:03 PM | | | | | PDT | | + + + + + documented in this encounter Progress Notes Yolis Hamilton OT - 04/14/2012 2:17 PM PDTFormatting of this note might be different fr om the original. [facility] Spina Bifida Program Occupational Therapy Evaluation Report IDENTIFYING INFORMATION: Name: Pete Orozco Age: 16 year 3 month Date of Visit: 04/14/2012 Accompanied by: Aunt Language Spoken: Amharic is the language spoken in the home. PCP: Umm Kaufman MD, M.D. Referral Source: PCP REASON FOR REFERRAL: Pete was seen today by Occupational Therapy for a clinical evaluati on of fine motor, visual motor and perceptaual skill performance as well assessment of activ ities of daily living. Information was gathered via formal evaluation, chart review and ind ividual and family interview. PREVIOUS CLINICS: Pete was last seen for an Occupational Therapy evaluation through the [facility] on 06/14/09 with VMI standard score of 74, Visual Perception - 96, and Mo tor Coordination - 97. INDIVIDUAL/PARENTAL CONCERNS: No specific concerns reported, but Pete did mention that eliseo borges hand tends to stiffen up when he is writing or typing and that reading is very difficult for him. PERTINENT MEDICAL INFORMATION: Medical history was provided through chart review and caregi nancy interview. Gabriel's medical history is significant for lumbosacral lipomyelomeningocel e repaired and secondary untethering surgery 02/16. S/p complex orthopedic surgeries to right foot in 12/21 and 06/24. Pete presents with a medical history remarkable for: Patient Active Problem List Diagnoses Lipomyelomeningocele Neurogenic Bladder, NOS Neurogenic Bowel Delayed Milestones LIPOMA OF OTHER SPECIFIED SITES Scoliosis Visual Impairment Contracture of Ankle and Foot Joint Monoparesis Pes Cavus, right Decubitus Ulcer of Heel Leg Length Discrepancy, right Change of life Tethering of spinal cord Abnormal gait History of migraine headaches ALLERGIES: Amoxicillin; Latex; and Morphine PAIN ASSESSMENT: Pete did not exhibit or report pain and Pete's caregiver indicated t hat they do not believe he is in pain at this time. SOCIAL HISTORY: Pete lives at home with his mother, his mother's boyfriend, his sister a nd her son, 21 year old brother, and brother's fiance in [place], [place]. COMMUNITY SERVICES: Pete is in the 10th grade at [employer]. He reports he does not consistently go to school, but lately he has been sometimes going for half days. T here is an IEP in place, and it seems he is supposed to be getting services, but he was unsu re. In the past he has received special education for math, reading and spelling. He does not receive private therapies. EVALUATION: Behavior during today's assessment: Pete was very pleasant and cooperative. He attended well to all tasks presented. Sensory Processing: Appears to have a relatively normal ability to process sensory informat ion in his environment. Vision: No concerns. Neuromotor (muscle tone, ROM, strength): Full ROM of upper extremities with normal muscle tone and good strength for functional activities. Ambulates without any equipment. Trunk Control/Sitting Balance: Independent Handwriting: Observed to switch between using a right handed dynamic tripod grasp and a pura drupod grasp with occasional thumb wrap and applied very heavy pressure on the pencil. Abl e to sign name in cursive with nice legibility. Fair legibility with adequate sizing and spa cing when asked to make up a sentence about what he plans to do this summer. He had difficu lty coming up with sentences and had a difficult time correcting spelling errors. He wrote "I wunt to go fishing. Thin I wunt to go to my [place] house. Thin go [place] to the [place]." in attempt to write "I want to go fishing. Then I want to go to my grandma's house. Then go up to the [employer]." Formal Assessment: Maria Teresa Developmental Test of Visual-Motor Integration (VMI), 5th Ed. The Josephine VMI helps assess the extent to which individuals can integrate their visual and m otor abilities. The Short Format and Full Format tests present drawings of geometric forms arranged in order of increasing difficulty that the individual is asked to copy. This asses sment tool is used for children 2-18 years of age. The Short Format is often used with nat rey 2-8 years. The mean standard score on this scale is 100 and the standard deviation is 15- this means that a child developing in an average manner for his/her age would have a sta ndard score of between 85 & 115. A score of 70 or below may indicate significantly delayed visual perceptual and visual motor skills requiring intervention; a standard score of 70-85 indicates borderline fine and visual motor skills and may require intervention; a standard s core between 85 & 115 is in the low average to high average range. Age equivalency scores m ay be used as another approximate marker of visual perceptual and visual motor function. Scale Raw Score Standard Score Percentile Age Equivalent [facility] VMI 26 92 30th 12 years 3 months Visual Perception 27 93 32nd 12 years 8 months Motor Coordination 26 90 25th 10 years 8 months Clinical Observations: Pete scored within the average range on the Visual Motor Integrat ion subtest. He was able to copy basic shapes as well as shapes that contained multiple par ts and required a specific orientation in space. He scored within the average range on the V isual Perception subtest and was able to visually match complex shapes. He scored within th e average range on the Motor Coordination subtest. He was able to trace complex shapes and remain with the narrow lines. Impact on Functional Skills (self-care, feeding, play): Pete reports that he is independent with all self-care skills. He prepares meals for [facility] including Tv dinners and simple sandwiches or microwaveable meals. For fun he enjoys hanging out with his friends and riding his bike at the [employer] park. He reports that he does not like to go to school, but knows that he probably should since he would learn. SUMMARY AND IMPRESSIONS: Pete is a sweet 16 year old with spina bifida who is doing wel l with self-care and making nice progress in fine motor and visual motor skills, but demonst rates significant difficulties with completing school-related tasks such as writing and acad emic tasks. RECOMMENDATIONS: 1. Pete would benefit from an Occupational Therapy consult at school to address diffic ulties with handwriting tasks and written output. Please share reports from today's evaluat ion with professionals at school to best coordinate his care and support his learning. 2. To help with completing written work, Pete would benefit from practicing his keyboa rding and computer skills at home and at school. Pete may benefit from use of a keyboard to complete written work. He can use specific typing programs such as "Type to Learn" or t here is a typing course called "Obed's Online Typing Course" is one free resource online (h ttp://www.typing-lessons.org/) or www.[employer]ph[employer]. He may also benefit from software tae viveros Co:School Aide. Co:School Aide is a word prediction program that helps increase the written work production for the student struggling with sentence composition. Information about Co:write r can be found at http://www.CRAiLAR/products/korina/index.html 3. Pete should be encouraged to practice his writing skills for functional tasks such as for filling out forms, registering for sports teams, or sending cards. PLAN: Follow-up OT evaluation in 1 year with the [facility] Spina Bifida team. It was a pleasure working with Pete and his aunt today. The referral from Umm ford MD, M.D. was greatly appreciated. The results and recommendations from this evaluation we re discussed with the individual/family at the end of the session. [facility] recognizes that it is the responsibility of the parents and the school district's educational team to determine services and implement suggestions as appropriate. The information in this report may be u sed to help make these decisions. Please contact the occupational therapist named below at for questions or concerns regarding this evaluation. Yolis Hamilton MS, OTR/L [facility] Occupational Therapist documented in this encounter Plan of Treatment Not on filedocumented as of this encounter Procedures + +--------+ + + + | Procedure Name | Priori | Date/Time | Associated Diagnosis | Comments | | | ty | | | | + +--------+ + + + | MI OCCUPATIONAL | Routin | 05/06/2012 | | | | THERAPY EVALUATION | e | 5:54 PM | Lipomyelomeningocele | | | | | PDT | Delayed milestones | | | | | | Visual impairment | | + +--------+ + + + documented in this encounter Visit Diagnoses + + | Diagnosis | + + | Lipomyelomeningocele Spina bifida without mention of hydrocephalus, lumbar region | + + | Delayed milestones | + + | Visual impairment Unspecified visual loss | + + documented in this encounter
--- OUTSIDE RECORDS SUMMARY | ~2019-10-26 | XMS | Encounter Summary ---
Demographics + + + | Address | [address] | | | [place] [address] | + + + | Home Phone [...] [place] | | | | | [address] | | + + + + + Care Team Providers + +------+ + | Care Warper Tender Name | Role | Phone | + +------+ + PCP | Unavailable | + +------+ + Encounter Details +--------+ + + + + | Date | Type | Department | Care Team | Description | +--------+ + + + + | 03/19/ | Results | | [facility]ettles | | | 2003 | Only | | | | +--------+ + + [...] | + +--------+ + + + | MRI SPINE LUMBAR WO | Routin | 02/01/2003 | | Results for this | | CONT | e | 7:40 AM | | procedure are in the | | | | PST | | results section. | + +--------+ + + + documented in this encounter Results MRI SPINE LUMBAR WO CONT (02/01/2003 7:40 AM PST) + + + + + + | Component | Value | Ref Range | Performed | Pathologist | | | | | At | Signature | + + + + + + | MR LUMBAR | Radiologist 1: YASMEEN, | | | | | SPINE WO | Morris RICE-Radiologist | | | | | CONT | 2: DWAYNE ARANA M.D.MRI | | | | | | LUMBAR SPINE: | | | | | | 02/01/2003 Dictated | | | | | | 02/01/2003 COMPARISON: | | | | | | MRI lumbar spine | | | | | | 05/31/2002. TECHNIQUE: | | | | | | MRI of the lumbar | | | | | | spine:1. Sagittal T1 | | | | | | and T2.2. Axial T1 and | | | | | | T2. FINDINGS: Normal | | | | | | signal is seen within | | | | | | the vertebral bodies. | | | | | | Thereis spinal | | | | | | dysraphism involving | | | | | | L4-5 and the sacrum. | | | | | | There is | | | | | | normalalignment. The | | | | | | enlarged distal central | | | | | | canal is unchanged from | | | | | | theprevious examination. | | | | | | There is congenital and | | | | | | postoperative | | | | | | distortion of the distal | | | | | | spinalcord consistent | | | | | | with the history of | | | | | | repaired | | | | | | lipomyelomeningocele.The | | | | | | spinal cord is low | | | | | | lying and cord tissue is | | | | | | seen at the L5 | | | | | | level.There is central | | | | | | dilation of the spinal | | | | | | cord which begins at | | | | | | L3-4 andflares out | | | | | | extending inferiorly | | | | | | consistent with a | | | | | | myelocystocele. This is | | | | | | all unchanged since the | | | | | | previous examination. | | | | | | There is alipoma | | | | | | intimately associated | | | | | | with the right side of | | | | | | the | | | | | | distalplacode/myelocysto | | | | | | keturah. The lipoma exits | | | | | | through the upper | | | | | | sacralspinal dysraphism. | | | | | | IMPRESSION: No | | | | | | significant interval | | | | | | change of L4 to upper | | | | | | sacrum spinaldysraphism. | | | | | | Findings are consistent | | | | | | with prior | | | | | | lipomyelomeningocele | | | | | | repair withlow lying | | | | | | cord tissue to the L5-S1 | | | | | | level. There is | | | | | | persistentcystic | | | | | | dilation of the distal | | | | | | spinal cord starting at | | | | | | L3 typical ofa | | | | | | myelocystocele. END OF | | | | | | IMPRESSION: | | | | + + + + + + + + | Specimen | + + | | + + + +---------+ + + | Performing | Address | City/State/Zipcode | Phone Number | | Organization | | | | + +---------+ + + | [facility] DEPARTMENT | | | | | RADIOLOGY | | | | + +---------+ + + documented in this encounter Visit Diagnoses Not on filedocumented in this encounter"
--- OUTSIDE RECORDS SUMMARY | ~2019-10-26 | XMS | Encounter Summary ---
Demographics + + + | Address | [address] | | | [place] [address] | + + + | Home Phone [...] [place] | | | | | [address] | | + + + + + Care Team Providers + +------+ + | Care Package Sealer Machine Name | Role | Phone | + +------+ + | No Pcp Per Patient | PCP | Unavailable | + +------+ + Encounter Details +--------+ + + + + | Date | Type | Department | Care Team | Description | +--------+ + + + + | 08/05/ | Ancillary | Registration [id number] | Sergo Valenzuela | | | 2005 | Registratio | [facility] | MD Jos [address] Mailcode: [id number] | Nasir Tineo [place], | | | | | [place], [place] | [place] [address] | | | | | [address] | [phone] | | | | | [phone] | | | +--------+ + + + [...]
--- OUTSIDE RECORDS SUMMARY | ~2019-10-26 | XMS | Encounter Summary ---
Demographics + + + | Address | [address] | | | [place] [address] | + + + | Home Phone [...] [place] | | | | | [address] | | + + + + + Care Team Providers + +------+ + | Care Student Finance Specialist Name | Role | Phone | [...] | | + +---------+ + + | [facility] DEPARTMENT | | | | | RADIOLOGY | | | | + +---------+ + + documented in this encounter Visit Diagnoses Not on filedocumented in this encounter"
--- OUTSIDE RECORDS SUMMARY | ~2019-10-26 | XMS | Encounter Summary ---
Demographics + + + | Address | [address] | | | [place] [address] | + + + | Home Phone [...] [place] | | | | | [address] | | + + + + + Care Team Providers + +------+ + | Care Addiction Specialist Name | Role | Phone | [...] as of this encounter Progress Notes Interface, [employer] In - 06/14/2005 7:09 PM PDTClinic Date: 03/06/2004 Clinic Name Spina bifida Discipline Urology Subject: Pete is a 8-year 2-month-old male with a history of lumbosacral lipomyelomeningocele. He is followed for his neurogenic bladder and was last seen June 2003. Due to problems with insurance he has not been getting his Ditropan. He has been catheterized with a 10 Jamaican Catheter every four hours. He is leaking between catheterizations. In the past when taking Ditropan and on an intermittent catheterization program he was not having any significant leakage. Since last seen he has had no infections, he is on no daily antibiotics. He is having a bowel movement on a daily basis. He is back on an insurance plan now. The family is having no problems catheterizing him, he has had no blood in his urine. Allergies: No known drug allergies. Medications: No medications. Objective: Height 127 cm, weight 24.8 kg, blood pressure 95/64. General: Healthy appearing young boy, no acute distress, nontoxic. Abdomen is soft, nontender, no masses, no organomegaly. Bladder is not palpable. Genitourinary examination reveals normal circumcised phallus without lesions. Meatus is normal. Scrotum normal. Both testicles are fully descended and normal to palpation without hernias, hydroceles, varicoceles, nor tumors. Testicular appendages and vas deferens palpably normal. Anus with decreased tone. Some stool in the pull-up. No skin breakdown, lesions, nor rash. Ultrasound today shows normal size kidneys, right 48 and left 49 cc in volume. No hydronephrosis. Bladder held 65 cc per and was emptied post catheter. Assessment/Plan: Stable neurogenic bladder. He was restarted on Ditropan at 5 mg b.i.d. Prescription was written for t.i.d. so that if he is still leaking at the b.i.d. dose he may increase the dose to 5 mg t.i.d. If he is still having problems with leakage the family will call us. We plan to see him back in a year with a followup ultrasound or sooner if he has problems with infections, incontinence, or any other concerns. The patient was seen in conjunction with Dr. Bhavin Porter, a resident in urology. Danny Dhaliwal M.D., F.A.A.P. Clinical Retail Marketing Executive Pediatric Urology [id number] P [id number] cc: Morris Doshi [place]. P DTdocumented in this encounter Plan of Treatment Not on filedocumented as of this encounter Visit Diagnoses Not on filedocumented in this encounter"
--- OUTSIDE RECORDS SUMMARY | ~2019-10-26 | XMS | Encounter Summary ---
Demographics + + + | Address | [address] | | | [place] [address] | + + + | Home Phone | | + + + | Preferred Language | Unknown | + + + | Marital Status | Single | + + + | [employer] Affiliation | CHR | + + + [...] [place] | | | | | [id number] | | + + + + + Care Team Providers + +------+ + | Care Direct Service Professional Name | Role | Phone | + +------+ + | Dajuan Jerome MD | PCP | | + +------+ + Encounter Details +--------+ + + + + | Date | Type | Department | Care Team | Description | +--------+ + + + + | 05/20/ | Office | [facility] | Report, Outpatient | Progress Note | | 1999 | Visit-Trans | | Consultation | | [...] as of this encounter Progress Notes Interface, Weaver Apprentice In - 10/01/2006 5:02 AM PSTCLINIC DATE: 05/20/2000 CLINIC NAME: [facility] DISCIPLINE: PHYSICAL THERAPY Chronological Age: Hupt-uljaj-fqmu-months. Gross Motor Age-Equivalent: Iguqo-nobpc-71-months. Developmental Motor Quotient: 79. Standard Deviation: -1.4. INTRODUCTION: Pete returns to the [facility] as a routine recheck, with continued complaints of back pain and recent complaints of leg pain. 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 He has not needed services, and has seemed to function normally in gross motor abilities. BEHAVIOR: Pete was somewhat impulsive for testing today, but would cooperate with commands if a reward was promised. GROSS MOTOR AGE-EQUIVALENT: Pete was scored on the [place] Developmental Gross Motor Scale, a standardized test that compares him to typically developing children. The total raw score was 272 points, which is average for a child of 47 months, or just five months below Pete's chronological age. This is within normal limits. Pete can ride a bicycle without training wheels; he can walk forward and sideways on a six inch high balance beam; he can do consecutive somersaults, and broad jump 36 inches. Pete could stand six seconds on his right foot and four seconds on his left, and hop two consecutive hops on each foot. He alternated his feet without railings going up stairs, and alternated feet only when he could use railings going down stairs. Of great concern today was Pete's spine and posture. Although no spinal asymmetry or rotation was noted on the bend-over test, Pete stood with a low left shoulder and scapula, considerable lordosis, and winging of the scapulae bilaterally. Lordosis was present in all activities. The pelvis was level, as measured from the anterior superior iliac spines, and by observation. Leg examination was equivocal: in supine, when the heels were tractioned, the right knee and medial ankle malleolus were 0.5 inch longer than the left. But, in hook-lying, with the knees together, the left knee was higher. The left hip exhibited some pistoning, but the right did not. Pete had definite scapular winging in the wheelbarrow position, and, indeed, in all positions. LEG/BACK PAIN: I discussed "growing pains", which are normal and soothed by warm baths and Tylenol. I also discussed fatigue after a lot of activity, and possible spinal weakness due to asymmetry and structural instability. CONCLUSIONS: Pete is functioning within normal limits in gross motor abilities, with lordosis and scapular winging, and asymmetry of posture. RECOMMENDATIONS: Pete would benefit from back strengthening and abdominal strengthening exercises or games. An overhead ladder, wheelbarrow walking, and sit-ups (his father has been doing this for several years with him now). His activities should not be limited at the present time, but they should use common sense regarding heavy contact play. I am available at if there are any questions about this report. Kelly Chambers. Physical Therapist ECR:[id number] cc: PATIENT PARENTS PRIMARY CARE PHYSICIAN [id number] signed by Interface, Weaver Apprentice In at 10/01/2006 5:02 AM PSTInterf latoya, Weaver Apprentice In - 10/01/2006 5:02 AM PSTCLINIC DATE: 05/20/2000 CLINIC NAME: [facility] DISCIPLINE: NURSE PRACTITIONER Pete is a [age] year, five month old with medical history of lumbosacral lipomyelomeningocele repaired. He has secondary issues of neurogenic bowel and bladder. Pete is seen by the Nurse Practitioner today upon request of Dr. Ru Malik, Pediatric Urologist. The focus of this visit is teach the family clean intermittent catheterization. Pete is accompanied by both his parents and his brothers for today's evaluation. BRIEF OUTLINE OF RELEVANT HISTORY: Pete had early urologic studies which showed fairly good bladder emptying without evidence of reflux. He has had urinary tract infections which seemed related to being uncircumcised. He did have a circumcision in January of 1997, and has not had any documented infections since that time. His most recent renal ultrasound was in January of 1999, which showed normal upper tracts except for possible grade I hydronephrosis on the left. His parents have been working on toilet training efforts with him, but in spite of their efforts, Pete has been unsuccessful. The parents perceive that he does not have a sense of when he actually needs to void and is not able to control his urinary stream. Pete has stool patterns which vary from overly formed stools to periods of loose stools, which the parents describe as diarrhea. Apparently on ultrasound today, Pete was reported to have a very large distended bladder. Dr. Malik recommended that he be placed on a catheterizing program both for decompressing his bladder as well as to work towards providing him with a level of social continence. The parents are in agreement with this plan. General information regarding clean intermittent catheterization and a brief review of relevant anatomy was described to the family. They were given printed educational materials that they can reflect on upon arrival at home. They were allowed to handle a catheter so that they would be comfortable with it. They were given enough supplies of catheters, lubricants and measuring devices as well as a syringe to clean his catheters with, so that they will have no immediate problem obtaining supplies in the local community. They were also given prescriptions for #8 mentor catheters as well as water soluble lubricant. OBJECTIVE: Pete had absolutely no indication of recognition of my passing the catheter. The catheter passed easily and approximately 90 cc. of clear, yellow urine was obtained. Following my demonstration the mother was able to insert the catheter and successfully pass through the neck of the bladder opening and drains additional cc. of urine. She felt comfortable and Pete appeared to be confident with mother doing the procedure. PLANS FOR FOLLOW-UP: 1. The mother was asked to record catheterized urinary volumes and also to make notations about the amount of wetness present when she goes to catheterize Pete. These recorded volumes are to be faxed to the [facility] office in approximately two to three weeks for review by Dr. Malik. 2. The family is given information on washing and storing catheters. 3. The family is asked to call with any questions or problems that they are having regarding the catheterization procedure. 4. Pete should be seen back in [facility] in approximately three months for review of progress with the catheterizing program. The visits would be with Dr. Malik and with Nursing. On that visit some time should be allowed for Nursing to discuss more formal planning for bowel management. Landen Jj MO:[id number] signed by Interface, Weaver Apprentice In at 10/01/2006 5:02 AM PSTInterf latoya, Weaver Apprentice In - 10/01/2006 5:02 AM PSTCLINIC DATE: 05/20/2000 CLINIC NAME: [facility] DISCIPLINE: SOCIAL WORK Pete, [age] years and five months of age, comes to clinic today with his parents, Yamil Orozco and Nicky Duron, as well as his half-brother, Dave (nine years of age), and full sibling, Jared (two years of age). This is a return visit for Pete. He has been followed in our clinic throughout his young life for his needs related to repaired lumbosacral lipomyelomeningocele, neurogenic bowel and bladder issues, as well as some very mild orthopedic needs. He is currently living in [place] with his family. This family returned to [place] from [place], [place] last June. Nicky reports that she is currently home rice farmer with the children and that Yamil is working outside of the home as a assembler cards and announcements. There is extended family nearby in the [place] area. A review of community resources reveal that Pete's medical coverage is through the [facility], and the current managed care organization is [employer]. Primary medical care is provided through Umm Kaufman M.D. The family has applied for Social Security income but has not been found eligible. With the identification of neurogenic bowel and bladder problems and the need to begin a clean intermittent catheterization program, the family tries to re-apply for Social Security income. This social work assistant is unsure whether that diagnosis itself will make him eligible. Pete is not currently being followed through an Early Intervention program, but they have applied to have him placed in a Head Start program in the fall. There are no social work activities planned, although Social Work remains available as needed. Neli Robison L.C.S.W. Social Work Lecturer [id number] signed by Interface, Weaver Apprentice In at 10/01/2006 5:02 AM PSTInterf latoya, Weaver Apprentice In - 10/01/2006 5:02 AM PSTCLINIC DATE: 05/20/2000 CLINIC NAME: [facility] DISCIPLINE: ORTHOPEDICS Pete returns for continuing care of his spina bifida. His diagnosis is lumbosacral level lipomeningocele. The parents note that he appears to be a bit asymmetric and that his abdomen is a bit more prominent, off to the left side. He has always had a fair amount of extra lordosis that accentuates his abdominal prominence. His gait today shows he is walking quite evenly. He can run, jump and play without difficulty. He is able to toe-walk and heel-walk without difficulty, as well. He has full range of motion about the hips, knees and ankles. He has no flexion contracture of the hips. He is a bit stiff with the lumbar spine into lordosis. He does show that when he is left to his own devices, he tends to list a bit off to the right side. This gives his abdominal prominence a little bit more prominence on his left side. However, he is quite flexible and I am able to straighten him up in position without difficulties. For now, there is no intervention required for Pete. I have suggested to the parents that this is strictly a postural behavior that he has developed over time and needs no active intervention. I would suggest a recheck at our next full appointment. Gilbert Romero M.D. Civil Cad Designer, Orthopedics and Rehabilitation ANAMARIA:[id number] signed by Interface, Weaver Apprentice In at 10/01/2006 5:02 AM PSTInterf latoya, Weaver Apprentice In - 10/01/2006 5:02 AM PSTCLINIC DATE: 05/20/2000 CLINIC NAME: [facility] DISCIPLINE: UROLOGY Patient is a 7-ggov-vma-boy with a history of a lumbosacral lipomeningocele. He is followed here at the [facility]. He is not on intermittent catheterization. He has had no urinary tract infections. He has been noted to empty his bladder with valsalva, and his attempts to be toilet trained failed for control of both stool and urination. His prior voiding cystourethrogram identified a bladder, which failed to empty completely. Previous ultrasounds have shown no evidence of hydronephrosis. He presents today for continued evaluation. Physical examination today demonstrated a palpable bladder, with compression resulting in urine coming from a circumcised phallus. The patient's testes are bilateral descended and normal. An ultrasound was performed. This demonstrated interval growth of both kidneys, with no evidence of hydronephrosis. The patient attempted to empty the bladder and his post-void residual was 39 cc. ASSESSMENT: Pete does not appear to empty his bladder and has a neurogenic bladder as a result of his lumbosacral lipomeningocele. I discussed this with his family. We discussed the role of intermittent catheterization and bladder emptying to better obtain dryness. This will be taught to him by our nurses in the very near future. Dave Malik M.D. SS:[id number] signed by Interface, Weaver Apprentice In at 10/01/2006 5:02 AM PSTInterf latoya, Weaver Apprentice In - 10/01/2006 5:02 AM PSTCLINIC DATE: 05/20/2000 CLINIC NAME: [facility] DISCIPLINE: NEUROSURGERY SUBJECTIVE: I met Pete Orozco today in the [facility]. He is a child with lipomyelomeningocele. He has intermittently had back pain. He had one episode two weeks ago which was brief and completely self-limiting. His parents do not notice any trouble with him running, jumping, and keeping up with other kids. He has had bladder problems which were somewhat difficult to diagnose historically and were reviewed again by Dr. Malik today. His parents have not noticed any change in bladder functioning. He has had problems with his stream and wetness. Dr. Malik tells me here in clinic that he does appear to have neurologic-related bladder dysfunction, but this appears to have been longstanding, and there is no evidence of recent change. They are beginning an intermittent straight catheterization program for him at this visit. OBJECTIVE: Pete has full strength to confrontation and can wriggle and cross his toes. He can cross them slightly better on the left. His ankle reflexes are trace and perhaps worse on the right as before. His knee reflexes are symmetric. He walks well, normally, and on his toes. His untethering incision is flat and well-healed. He has no palpable pain in this area. He has good spine range of motion. PLAN: I have not recommended any other intervention or workup at this time. I would like to follow him closely and see him again in six months with a repeat MMT test to objectively evaluate and follow his muscle function in the lower extremities. I emphasized to his parents the signs and symptoms of cord re-tethering, so that if he presents with any of these, they can bring him back earlier. Js Dneg M.D., Ph.D. Civil Cad Designer, Pediatric Neurosurgery NS / HS [id number] / [id number] / [id number] / [id number] C:05/26/2000/rac documented in this encounter Plan of Treatment Not on filedocumented as of this encounter Visit Diagnoses Not on filedocumented in this encounter
--- OUTSIDE RECORDS SUMMARY | ~2019-10-26 | XMS | Encounter Summary ---
Demographics + + + | Address | [address] | | | [place] [address] | + + + | Home Phone [...] Author + + + | Author | [facility] | + + + | Organization | [facility] | + + + | Address | Unknown | + + + | Phone | Unavailable | + + + Support + + + + + | Name | Relationship | Address | Phone | + + + + + | Sarahi Orozco | ECON | [address] | | | | | [place] | | | | | [address] | | + + + + + Care Team Providers + +------+ + | Care Parachute Panel Joiner Name | Role | Phone | + +------+ + | Umm Kaufman MD | PCP | | + +------+ + Encounter Details +--------+ + + + + | Date | Type | Department | Care Team | Description | +--------+ + + + + | 06/24/ | Documentati | [facility] | Ngoc Fish PNP | | | 2011 | on | Floor [address] | [address] | | | | | St Mailcode: [facility] | [place], [place] | | | | | [facility] [place], [place] | [address] | | | | | [address] | [phone] | | | | | [phone] | | | +--------+ + + + [...]
--- OUTSIDE RECORDS SUMMARY | ~2019-10-26 | XMS | Encounter Summary ---
Demographics + + + | Address | [address] | | | [place] [address] | + + + | Home Phone | | + + + | Preferred Language | Unknown | + + + | Marital Status | Single | + + + | Scientologist Affiliation | CHR | + + + | Race | White | + + + | Ethnic Group | Not or | + + + Author + + + | Author | [facility] | + + + | Organization | [facility] | + + + | Address | Unknown | + + + | Phone | Unavailable | + + + Support + + + + + | Name | Relationship | Address | Phone | + + + + + | Sarahi Orozco | ECON | [address] | | | | | [place] | | | | | [address] | | + + + + + Care Team Providers + +------+ + | Care Home Health Physical Therapist Name | Role | Phone | + +------+ + | Dajuan Jerome MD | PCP | | + +------+ + Encounter Details +--------+ + + + + | Date | Type | Department | Care Team | Description | +--------+ + + + + | 11/18/ | Office | [facility] | Report, Outpatient | Progress Note | | 2000 | Visit-Trans | | Consultation | | [...] as of this encounter Progress Notes Interface, Window Trimmer Apprentice In - 09/19/2006 1:07 AM PSTCLINIC DATE: 11/18/2000 CLINIC NAME: [facility] DISCIPLINE: PHYSICAL THERAPY Gabriel attended clinic today accompanied by his mother. 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 He does apparently have some neurogenic bowel and bladder issues, however. I saw Gabriel today with particular attention to his strength because of episodes over the preceding year of complaints of back and leg pain and at least two episodes of him awakening at night with pain and reportedly being unable to move or bear weight through his lower extremities. Today mother reported that she does not see sustained loss of function or weakness affecting him, however. Gabriel was awake, alert, and pleasantly cooperative for me. I believe I was able to make an accurate assessment of his status. Examination of his musculoskeletal system reveals that he has full range of motion, normal alignment and good joint integrity throughout. There are no rotational deformities. His spine is clinically straight and fully flexible in all directions. However, he tends to stand with preferential weight shift to the right and thus typically displays compensatory curve for this. Because of his asymmetric appearance, I measured his leg lengths but could not measure a difference. Also remarkable about his posture is that he has a prominent belly and pseudo ringing of his scapulas and the swinging is frequently exaggerated when he does stressful activities such as weightbearing on his upper extremities. However, he does not display true weakness of any of his scapulohumeral or scapulotruncal muscles. Neuromotor exam of Gabriel was unremarkable. His resting muscle tone was normal to passive movement. His deep tendon reflexes were difficult to elicit but could be done so at his quadriceps tendon and his tendon Achilles bilaterally. His toes were downgoing to plantar stimulation. I could not discern any long tract signs. I performed manual muscle testing throughout both lower extremities and he displayed 5/5 strength in all of his muscles throughout both lower extremities from his hips through his feet. There was no asymmetry of function. Gabriel actually performed remarkably well in confrontational manual muscle testing for a boy under [age] years of age. Incidentally noted today is that Gabriel had a body wide skin rash that mother has brought to the attention of his nuclear operator. Gabriel complained of some itching in relation to this. Gabriel appears to be doing quite well and I will plan to reevaluate him at his next scheduled full team appointment with the [facility]. Raul Zamora Physical Therapist WF:[id number] signed by Interface, Window Trimmer Apprentice In at 09/19/2006 1:07 AM PSTInterf latoya, Window Trimmer Apprentice In - 09/19/2006 1:07 AM PSTCLINIC DATE: 11/18/2000 CLINIC NAME: [facility] DISCIPLINE: NURSING Pete Orozco comes into clinic today to see Urology and Neurosurgery, and also to be seen for some neurogenic bowel management. Pete appears well. He is active and playful. However, he has been having some difficulties with constipation and mother describes him as having frequent, often soft bowel movements several times per day. Currently she is using a Dulcolax suppository, which she is unable to retain. EXAMINATION: GENERAL: Alert, active, playful in the room. ABDOMEN: Soft, rounded with a large ropy mass at the left lower quadrant. Rectal exam has a large amount of dried, hard stool in the vault as well as some leaking of liquid stool around that. There is no rectal sphincter tone at this time. ASSESSMENT: Constipation with left lower quadrant rectal stool mass. PLAN: Fibercare 1 tablespoon per day mixed in 6-8 ounces of fluid. The order will be faxed to [facility]. We also discussed dietary measures of increasing fluid, fruits and vegetables. He is to use a Fleets enema daily for the next 2-3 days or until free of stool. He is also take 3/4 of a teaspoon of Senokot syrup daily for the next 3-4 days until clear of stool and then stop and use as needed, and continue with the Fibercare. Mother should call our office, [phone], if she has any questions or concerns. 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 He is ambulatory. He recently started intermittent catheterization. His mother catheterizes him with an 8 Korean catheter. They have had no difficulties in performance of the catheterization. This patient was seen in conjunction with the resident, Dr. Shoaib Pham. The remainder of the history and physical examination are recorded in his note. The salient physical findings were a slightly distended abdomen with increased bowel sounds. There is palpable stool in the left colonic gutter. Examination of his genitalia was unremarkable except for a mildly patulous anal sphincter. The recommendations for this patient at this time are a change in his bowel program. He will see our nurse in regards to that. We have also discussed teaching the child to begin participation in his own catheterization protocol. He will follow-up with us on a routine basis. Dave Malik M.D., F.A.A.P. ROSITAS:[id number] signed by Interface, Window Trimmer Apprentice In at 09/19/2006 1:07 AM PSTInterf latoya, Window Trimmer Apprentice In - 09/19/2006 1:07 AM PSTCLINIC DATE: 11/18/2000 CLINIC NAME: [facility] DISCIPLINE: PEDIATRIC UROLOGY SUBJECTIVE: Pete is nearly [age] years old. 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 Currently, he is being catheterized every four hours by his mother with an 8 Korean catheter. This was initiated in May 2000. He has not had any urinary tract infections since initiating catheterization. In addition, he has had no unusual fevers or illnesses. He is also taking Ditropan 4 cc p.o. b.i.d. During the last visit, the patient's mother had completed a voiding diary. He was voiding 1-6 ounces per void. His post-void residuals average 2 ounces. His average leakage was marked at either a level 1 or 2. Mother reports that this is not significantly different. He still is able to void and she catheterizes him after voiding for anywhere from 1-4 ounces. Again, she says that he is wet every day, but the wetness either a level 1 or 2. At his last visit, the patient was started on Dulcolax suppositories once every evening. Mother reports that he is able to hold these in roughly half the time. When he stools afterwards it sounds like he has a small amount of runny stool after evacuating the suppository. OBJECTIVE: On exam, he is a healthy-appearing pleasant male who is active and friendly. His abdomen is moderately distended. He is tympanitic to percussion. He has no palpable masses. The bladder is not palpable. His phallus is circumcised and of normal size, normal meatus. Testes are descended bilaterally measuring 1.5 cm bilaterally. He has moderate anal sphincter tone. The patient attempted to void by Valsalva but was not able to void. He is catheterized with an 8 Korean catheter for a total of 15 cc. Urinalysis biochemically showed a specific gravity of 1.010, pH of 6.5, positive for nitrites, otherwise negative. Microscopic analysis shows 0-3 white cells, no evidence of bacteria. The patient's last renal ultrasound showed a right kidney with a volume of 39 cc, and a left kidney also of 39 cc, both in the 50th percentile. He had a large post-void residual. There was no hydronephrosis or hydroureter. Previous voiding cystourethrogram showed no evidence of reflux. ASSESSMENT: A 5-year-old with a history of lipomyelomeningocele. He likely has an areflexic bladder with some degree of sphincter deficiency. His mother is right now satisfied with the degree of wetness. In addition, she is satisfied that he seems to be incontinent of stool every other day, which seems to be improving. PLAN: 1. Decrease Ditropan to 4 cc p.o. t.i.d. 2. They will be seen by the nurse specialist to discuss other options and treat his constipation, such as oral laxatives. 3. Continue catheterization. 4. Follow-up with Urology at the next scheduled [facility] Clinic appointment. Dr. Malik was present and participated in the history, physical examination and assessment. Curtis Pham M.D. Dave Malik M.D., F.A.A.P. CFK:[id number] signed by Interface, Window Trimmer Apprentice In at 09/19/2006 1:07 AM PSTInterf latoya, Window Trimmer Apprentice In - 09/19/2006 1:07 AM PSTCLINIC DATE: 11/18/2000 CLINIC NAME: [facility] DISCIPLINE: NEUROSURGERY Pete Orozco returned today in scheduled follow-up to the [facility] for repeat examination. There was a very mild concern about cord tethering over the summer, and we were almost completely reassured, but decided to schedule him for a six month follow-up instead of a one year follow-up. He continues to have a very occasional complaint of leg pain, as he has for quite some time now, which goes away with Tylenol and with his mother rubbing his legs. He runs around, and is not limited in his activities in any way, and he certainly does not have pain with activities. He has not had recent urinary tract infections or a change in his bladder function. His mother does not have concerns today. There are no differences from six months ago. On physical examination, Pete has full strength to confrontation, and can wiggle and cross his toes slightly better on the left, as before. His ankle reflexes are trace, barely perceptible on the right. His knee reflexes are symmetric. He walks beautifully on his heels and toes. His incision is flat and well-healed. He has no palpable pain. He has virtually 90 degree knee extension on the right with the hip flexed, and 85 degrees of knee extension on the left. His ankle dorsiflexion is excellent bilaterally. My impression is a lipomyelomeningocele, without any current problems. We will continue to see him in routine annual follow-up here. He did have a manual muscle test (MMT) today here in the clinic, which showed no change or loss in muscle strength. Js Deng M.D., Ph.D. Nursing Care Partner, Head, Division of Pediatric Neurosurgery NRS:[id number] signed by Interface, Window Trimmer Apprentice In at 09/19/2006 1:07 AM PSTdocume nted in this encounter Plan of Treatment Not on filedocumented as of this encounter Visit Diagnoses Not on filedocumented in this encounter"
--- OUTSIDE RECORDS SUMMARY | ~2019-10-26 | XMS | Encounter Summary ---
Demographics + + + | Address | [address] | | | [place] [address] | + + + | Home Phone [...] Author | [facility] | + + + | Organization | [facility] | + + + | Address | Unknown | + + + | Phone | Unavailable | + + + Support + + + + + | Name | Relationship | Address | Phone | + + + + + | Sarahi Orozco | ECON | [address] | | | | | [place] | | | | | [address] | | + + + + + Care Team Providers + +------+ + | Care Salvage Inspector Name | Role | Phone | [...] | | | | | hydrocephalu | [place] | | | | | s, lumbar | [address] | [address] | | | | | region | Phone: | Phone: | | | | | Neurogenic | [phone] | [phone] | | | | | bladder, NOS | Fax: | Fax: | | | | | Neurogenic | [phone] | [phone] | | | | | bowel | [...] | | | | | | | TX COMPLEX | | | | | | | | | | | | | | CYSTOMETROGR | | | | | | | AM TX | | | | | | | ELECTRO-UROF | | | | | | | LOWMETRY, | | | | | | | FIRST TX | | | | | | | ANAL/URINARY | | | | | | | MUSCLE | | | | | | | STUDY TX | | | | | | | INTRAABDOMIN | | | | | | | AL PRESSURE | | | | | | | TEST TX | | | | | | | URETHROCYSTO | | | | | | | GRAM+VOIDING | | | | | | | TX | | | | | | | INJECTION | | | | | | | FOR BLADDER | | | | | | | X-RAY TX | | | | | | | [...] bifida | [address] | [address] | | | | | without | [place] | Mailcode: | | | | | mention of | [address] | [facility] | | | | | hydrocephalu | [place] | | | | | s, lumbar | [address] | [address] | | | | | region | Phone: | Phone: | | | | | Neurogenic | [phone] | [phone] | | | | | bladder, NOS | Fax: | Fax: | | | | | Neurogenic | [phone] | [phone] | | | | | bowel | [...] | | | | | | | TX COMPLEX | | | | | | | | | | | | | | CYSTOMETROGR | | | | | | | AM TX | | | | | | | ELECTRO-UROF | | | | | | | LOWMETRY, | | | | | | | FIRST TX | | | | | | | ANAL/URINARY | | | | | | | MUSCLE | | | | | | | STUDY TX | | | | | | | INTRAABDOMIN | | | | | | | AL PRESSURE | | | | | | | TEST TX | | | | | | | URETHROCYSTO | | | | | | | GRAM+VOIDING | | | | | | | TX | | | | | | | INJECTION | | | | | | | FOR BLADDER | | | | | | | X-RAY TX | | | | | | | [...] | 11/15/ | Hospital | Radiology at [facility] | | | | 2008 | Encounter | [address] | | | | | | Mailcode: [id number] | | | | | | [place] | | | | | | [place], [place] | | | | | | [address] | | | | | | [phone] | | | +--------+ + + + [...]
--- OUTSIDE RECORDS SUMMARY | ~2019-10-26 | XMS | Clinical Summary ---
Demographics + + + | Address | [address] | | | [place] [address] | + + + | Home Phone | | + + + | Preferred Language | Unknown | + + + | Marital Status | Unknown | + + + | Lutheran Affiliation | Unknown | + + + | Race | Unknown | + + + | Ethnic Group | Unknown | + + + Author + + + | Author | [facility] | | | and [place] | + + + | Organization | [facility] | | | and [place] | + + + | Address | Unknown | + + + | Phone | Unavailable | + + + Support + + +---------+ + | Name | Relationship | Address | Phone | + + +---------+ + | Andressa Cosme | ECON | Unknown | | + + +---------+ + | Yamil Kenny ECON | Unknown | | + + +---------+ + Care Team Providers + +------+ + | Care Chair Mechanic Name | Role | Phone | + +------+ + | Brooke Dickson | PCP | | + +------+ + Allergies + + + + + + | Active Allergy | Reactions | Severity | Noted | Comments | | | | | Date | | + + + + + + | Amoxicillin | Rash | Medium | 11/23/19 | | | | | | 19 | | + + + + + + | Latex | Rash | Medium | 12/19/19 | No food related | | | | | 19 | allergies. | + + + + + + | Morphine | Rash | Medium | 12/19/19 | | | | | | 19 | | + + + + + + | Penicillins | Other (See Comments) | Medium | 12/19/19 | Red Man | | | | | 19 | | + + + + + + Medications + + + +---------+------+------+-------+ | Medication | Sig | Dispensed | Refills | Star | End | Statu | | | | | | t | Date | s | | | | | | Date | | | + + + +---------+------+------+-------+ | | Take 1 tablet by | 30 | 0 | 02/0 | | Activ | | oxyCODONE-acetaminop | mouth every 6 (six) | tablet | | 4/20 | | e | | hen (PERCOCET) 5-325 | hours as needed for | | | 19 | | | | mg per tablet | Pain. | | | | | | + + + +---------+------+------+-------+ Active Problems + + + | Problem | Noted Date | + + + | Dental abscess | 2018 | + + + | Sepsis | 2018 | + + + Social History + +-------+ [...] recent travel history available. | + + Last Filed Vital Signs + [...] | | + + + + + Plan of Treatment + + + + + | Health Maintenance | Due Date | Last Done | Comments | + + + + + | Vaccine: | | | | | Dtap/Tdap/Td (1 - | 5 | | | | Tdap) | | | | + + + + + | Vaccine: Influenza | | | | | (#1) | 9 | | | + + + + + Results Not on filefrom Last 3 Months
--- OUTSIDE RECORDS SUMMARY | ~2019-10-26 | XMS | Encounter Summary ---
Demographics + + + | Address | [address] | | | [place] [address] | + + + | Home Phone [...] Author + + + | Author | [facility] | + + + | Organization | [facility] | + + + | Address | Unknown | + + + | Phone | Unavailable | + + + Support + + + + + | Name | Relationship | Address | Phone | + + + + + | Sarahi Orozco | ECON | [address] | | | | | [place] | | | | | [address] | | + + + + + Care Team Providers + +------+ + | Care Tax Consultant Name | Role | Phone | [...] | | bifida | [place] | [address] | | | | | without | COUNTY | Mailcode: | | | | | mention of | HEALTH DEPT | [facility] | | | | | hydrocephalu | [address] | [place], [place] | | | | | s, lumbar | [place], | [address] | | | | | region | [place] [address] | Phone: | | | | | Neurogenic | Phone: | [phone] | | | | | bladder, NOS | [phone] | Fax: | | | | | Procedures | Fax: | [phone] | | | | | NE | [phone] | | | | | | US,RETROPERI | | | | | | | T, | | | | | | | B-SCAN/REAL | | | | | | | TIME,COMPLET | | | | | | | E NE | | | | | | | [...] + + | 09/12/ | Office | [facility] at [facility] | Cy Hutson | Lipomyelomeningocele | | 2008 | Visit | [address] | , PT [address] [facility] | ; Monoparesis (HCC); | | | | St Mailcode: [facility] | [address] | [employer] of | | | | [facility], [place] | [place] [address] | Ankle and Foot | | | | [address] | | Joint; Pes Cavus, | | | | [phone] | | right; Leg Length | | [...] t from the original. PHYSICAL THERAPY EVALUATION [facility] DATE OF SERVICE: [...] complex orthopedic surgery 10/26/07 DR. MERARY AYALA ([facility]) FAMILY AND PATIENT CONCERNS: Pete reported no adverse interval changes. Mother corrobora rupert this. He is eager to get the cast off, and is expecting that change soon. REPORT OF PAIN: Upon inquiry there was no pain reported and none evident. SERVICES: Pete is not currently involved in any Physical Therapy (PT) services. He is en rolled at [facility] in [place] for orthopedic care and orthotic management. GENERAL [...] is intact elsewhere. He reports that the kmqosj-pc-z-shoe sensation is much worse (and typically so) [...] new right Ankle Foot Orthosis (AFO) from [facility] in [place] after the final cast removal. GAIT: Pete's [...] welcome questions related to this report at [phone]. IDALMIS HUTSON PT, PCS Physical Therapist Pediatric Clinical Specialist [facility] [phone] [email or web address] documented in this encounter Plan of Treatment + + +--------+ + + | Name | Type | Priori | Associated Diagnoses | Order Schedule | | | | ty | | | + + +--------+ + + | [facility] PHYS THERAPY | Procedures | Routin | [...]
--- OUTSIDE RECORDS SUMMARY | ~2019-10-26 | XMS | Encounter Summary ---
Demographics + + + | Address | [address] | | | [place] [address] | + + + | Home Phone | | + + + | Preferred Language | Unknown | + + + | Marital Status | Single | + + + | Pentecostalism Affiliation | CHR | + + + | Race | White | + + + | Ethnic Group | Not or | + + + Author + + + | Author | [facility] | + + + | Organization | [facility] | + + + | Address | Unknown | + + + | Phone | Unavailable | + + + Support + + + + + | Name | Relationship | Address | Phone | + + + + + | Sarahi Orozco | ECON | [address] | | | | | [place] | | | | | [address] | | + + + + + Care Team Providers + +------+ + | Care Power Supply Engineer Name | Role | Phone | + +------+ + | Dajuan Jerome MD | PCP | | + +------+ + Encounter Details +--------+ + + + + | Date | Type | Department | Care Team | Description | +--------+ + + + + | 05/02/ | Office | General Internal | Note, Outpatient | Progress Note | | 1995 | Visit-Trans | Medicine 5 | Clinic | | | | victor hugo | Ashley Acevedo | | | | | | Mailcode: [id number] | | | | | | Outpatient Clinic | | | | | | [facility], [address] | | | | | | [place], [place] | | | | | | [address] | | | | | | [phone] | | | +--------+ + + + [...] as of this encounter Progress Notes Interface, Surfacing Machine Operator In - 02/10/2007 5:02 AM PDT CLINIC DATE: 05/02/96 PEDIATRIC NEUROLOGY CLINIC SUBJECTIVE: The patient is a [id number]-knz baby born with lipomeningocele who is referred by Dr. Vance for evaluation of possible neurogenic bladder. On his initial evaluation after his repair of his lipomeningocele, there was no evidence of (neurogenic) bladder and he returns today three months after that evaluation for an ultrasound evaluation of his kidneys and bladder. The parents report that he has had no urinary tract infections and has been doing well. They have no complaints currently. OBJECTIVE: GENERAL: Today the patient appears active and healthy in no acute distress. ABDOMEN: His abdomen is soft. GENITOURINARY: His penis is uncircumcised. His testicles are descended and palpably normal bilaterally. His anal tone is normal and there is a large fatty defect in the midline overlying the lower lumbar and sacral spine. There is some decreased motor function of the right lower extremity. DIAGNOSTIC DATA: LABS: Urinalysis was done today and was microscopically and biochemically normal. ULTRASOUND: On his ultrasound, he had the following dimensions: On the right 5.2 x 3.3 cm and on the left 5.1 x 3.2 x 2.7 cm. The volumes were 24.4 on the right and 23 on the left and both were close to the 50th percentile. The renal pelvis and ureters were both normal. The bladder volume was 11 cc. IMPRESSION: The patient is doing well despite his lipomeningocele. There is no evidence of neurogenic bladder and the patient has had no urinary tract infections. PLAN: The patient will follow-up in six months with a repeat renal ultrasound at that time. Darryl Cox M.D. Resident, Urology Dave Malik M.D. [employer] Fabricating Supervisor, Urology [place]/catalina documented in this encounter Plan of Treatment Not on filedocumented as of this encounter Visit Diagnoses Not on filedocumented in this encounter"
--- OUTSIDE RECORDS SUMMARY | ~2019-10-26 | XMS | Encounter Summary ---
Demographics + + + | Address | [address] | | | [place] [address] | + + + | Home Phone [...] [place] | | | | | [address] | | + + + + + Care Team Providers + +------+ + | Care Facilities Maintenance Manager Name | Role | Phone | + +------+ + | No Pcp Per Patient | PCP | Unavailable | + +------+ + Encounter Details +--------+ + + + + | Date | Type | Department | Care Team | Description | +--------+ + + + + | 03/08/ | Hospital | Vascular Access at | | | | 2014 | Encounter | [facility] [address] [facility] | | | | | | [facility] | | | | | | [facility] | | | | | | [place], [place] | | | | | | [address] | | | | | | [phone] | | | +--------+ + + + [...] + + + +---------+ + + | CATHETER | | 150 | 11 | 01/13/20 | | | MiscIndications: | | Each | | 13 | | | Spina bifida without | | | | | | | mention of | | | | | | | hydrocephalus, | | | | | | | lumbar region, | | | | | | | Neurogenic bladder, | | | | | | | NOS | | | | | | + + + +---------+ + + | cephALEXin | Take 2 capsules by | 84 | 0 | 02/23/20 | | | (KEFLEX) 500 mg oral | mouth every eight | capsule | | 14 | | | capsule | hours for 14 days. | | | | | | | Take all pills. | | | | | + + + +---------+ + + | DIAPER,BRIEF, | 1 Units by Does not | 192 | 11 | 01/13/20 | | | ADULT,DISPOSABLE | apply route. Please | Units | | 13 | | | MiscIndications: | provide pull-up | | | | | | Spina bifida without | continence diaper, | | | | | | mention of | small men's size for | | | | | | hydrocephalus, | management of | | | | | | lumbar region, | neurogenic bladder, | | | | | | Neurogenic bladder, | bowel (596.54, | | | | | | NOS, Neurogenic | 564.81). | | | | | | bowel | | | | | | + + + +---------+ + + | DIAPER,BRIEF, | 1 Units by Does not | 192 | 11 | 01/13/20 | | | ADULT,DISPOSABLE | apply route. Please | Units | | 13 | | | MiscIndications: | provide pull-up | | | | | | Spina bifida without | continence diaper, | | | | | | mention of | small men's size for | | | | | | hydrocephalus, | management of | | | | | | lumbar region, | neurogenic bladder, | | | | | | Neurogenic bladder, | bowel (596.54, | | | | | | NOS, Neurogenic | 564.81). | | | | | | bowel | | | | | | + [...] mouth | 14 Tab | 0 | 05/30/20 | | | immediate release, 5 | every six hours as | | | 12 | | | mg Oral Tablet | needed for severe | | | | | | | pain. | | | | | + + + +---------+ + + | | Take 1 Tab by mouth | 10 Tab | 0 | 04/14/20 | | | trimethoprim-sulfame | two times [...] | + +--------+ + + + | PROCEDURE NOTE | Routin | 12/20/2015 | | Results for this | | | e | 2:42 PM | | procedure are in the | | | | PST | | results section. | + +--------+ + + + documented in this encounter Results PROCEDURE NOTE (12/20/2015 2:42 PM PST)documented in this encounter Visit Diagnoses Not on filedocumented in this encounter"
--- OUTSIDE RECORDS SUMMARY | ~2019-10-26 | XMS | Encounter Summary ---
Demographics + + + | Address | [address] | | | [place] [address] | + + + | Home Phone | | + + + | Preferred Language | Unknown | + + + | Marital Status | Single | + + + | Orthodoxy Affiliation | CHR | + + + [...] | + + + + + | Sarhai Orozco | ECON | [address] | | | | | [place] | | | | | [address] | | + + + + + Care Team Providers + +------+ + | Care Stockbroker Name | Role | Phone | + +------+ + PCP | Unavailable | + +------+ + Encounter Details +--------+ + + + + | Date | Type | Department | Care Team | Description | +--------+ + + + + | 06/26/ | Results | [facility] 7th | Dave Malik MD | | | 2004 | Only | Floor [address] | [address] | | | | | St Mailcode: [facility] | Maritza Ferreira [place], | | | | | [facility] [place], [place] | [place] [address] | | | | | [address] | [phone] | | | | | [phone] | | | +--------+ + + + [...] | + +---------+ + + | [facility] DEPARTMENT OF | | | | | RADIOLOGY | | | | + +---------+ + + documented in this encounter Visit Diagnoses Not on filedocumented in this encounter"
--- OUTSIDE RECORDS SUMMARY | ~2019-10-26 | XMS | Encounter Summary ---
Demographics + + + | Address | [address] | | | [place] [address] | + + + | Home Phone [...] [place] | | | | | [address] | | + + + + + Care Team Providers + +------+ + | Care Medical Technologist Blood Bank Name | Role | Phone | + +------+ + | Dajuan Jerome MD | PCP | | + +------+ + Reason for Visit + + + | Reason | Comments | + + + | OT - Occupational | | | therapy | | + + + Encounter Details +--------+---------+ + + + | Date | Type | Department | Care Team | Description | +--------+---------+ + + + | 06/06/ | Office | [facility] 7th | Olena Grijalva, | Lipomyelomeningocele | | 2008 | Visit | [address] | OT [address] | (Primary Dx) | | | | St Mailcode: [facility] | [facility] | | | | | [place], [place] | [place] [address] | | | | | [address] | [phone] | | | | | [phone] | | | +--------+---------+ + + + [...] documented as of this encounter Progress Notes Olena Grijalva, OT - 06/06/2009 12:08 PM PDTFormatting of this note might be different fr om the original. [facility] Occupational Therapy Assessment Clinic/Program: Spina Bifida Therapist Name: Olena Grijalva, MS, OTR/L Background and History: Pete is a 13 year 5 month old who comes to [facility] B[facility]ida Clinic today for a full team e valuation. Pete was referred by Dajuan JEROME and was accompanied by his parents. Concerns/Subjective Statements: Parents reported no concerns with self-care or fine motor s kills. Previous Clinics: Spina Bifida 04/23, Followed at [facility] orthopedics Medical History: Medical history was provided through chart review and caregiver interview. 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 S/p complex orthopedic surgeries or R foot and a nkle deformity, most recently 12/24 now well aligned and ambulating without device. Social/Educational History: Lives in [place] with family. Going into 8th Grade. Current Services: Special education part of the day, working on math, reading, spelling. No OT services per family. Behavior during today's assessment: Very pleasant and cooperative. Attended well to tasks at the table. Followed verbal direc tions well. Pain Level: There were no signs or symptoms of pain reported or observed today. Neuromotor (muscle tone, ROM, strength): Good muscle tone and strength in BUE, full range of motion, no abnormal movement patterns o r asymmetries in UB. Ambulates without device. Trunk Control/Sitting Balance: Independent Handwriting: Right handed modified static tripod grasp with thumb wrapped around index and middle finger . Fair legibility and spacing with poor spelling and motor planning for letter formation. Reversals present and difficulty correcting. When told to make up and write a sentence he w rote "I whint to [employer]" in an attempt to write "I went to day school", and had a diffic ult time correcting errors although he knew where the errors were. Formal Assessment: GraceYordy Developmental Test of Visual-Motor Integration (VMI), 5th Ed. The [facility] VMI helps assess the extent to which individuals can integrate their visual and m otor abilities. The Short Format and Full Format tests present drawings of geometric forms arranged in order of increasing difficulty that the individual is asked to copy. This asses sment tool is used for children 2-18 years of age. The Short Format is often used with chil dren 2-8 years. The mean standard score on [...] Raw Score Standard Score Percentile Age Equivalent [facility] VMI 20 74 4 7 yr 6 mo Visual Perception 26 96 39 11 yr 5 mo Motor Coordination 27 97 42 12 yr 11 mo Clinical Observations: Pete's scores for the visual perception section and motor coordin ation sections were in the average range. He demonstrated good ability to visually scan and pick out matching shapes, and to use motor coordination to connect dots and draw shapes wit hin lines. However, on the visual motor integration section, where he had to use visual per ception and motor coordination together to look at a shape and then copy it down, his scores were in the 7 year 6 month range, or 4th percentile, showing significant difficulty in this area. This would also make sense considering his difficulty with handwriting or looking at letters and copying them down correctly without tracing or connecting dots. Impact on Functional Skills (self-care, feeding, play, milestones): Per patient and family report, Pete is independent with all self-care skills. He is ind ependent for dressing including buttons, zippers and ties. Also independent for eating, bat dominguez (although requires cues to initiate this activity), grooming, and toileting. Pete e njoys playing baseball and BMX biking. He reports he does not like school. Summary and Impressions: Pete is a sweet 13 year old with spina bifida who presents with deficits in visual motor skills and difficulty with written and school-related tasks. He is doing well with self-ca re. Recommendations: 1. Pete should continue to work on functional handwriting, for example, writing notes a round the house or labeling items. Encourage him to fill out forms, such as filling out a f orm for a library card or to register for baseball. Consider the kind of things he will hav e to write for social situations and/or jobs in the future. 2. Pete would benefit from increased practice keyboarding and using a computer as this will likely be his best way to produce written work for high school and college. This would be a faster way for him to write and also a way to get feedback with spelling. Try finding motivation for written work such as emails or texts to friends. For example, he could be a llowed to send an email each day as long as he spell checks or checks with parents first to make sure letters are correct. 3. Pete would benefit from an OT consult at school related to handwriting progression a nd compensatory strategies. 4. Follow up through [facility] Bifida Clinic as recommended per team, would benefit from OT ev aluation at that time based on current visual motor and school-related difficulties. I enjoyed meeting Pete and his family during today's evaluation. Results/recommendation s were reviewed and questions were answered. Individualized written/verbal information rega rding resouces and recommendations was provided. The [facility] recognizes that it is the respons ibility of the caregiver and the school district to determine eligibility for early interven tion and to make educational plans as appropriate. The information in this report may be us ed to help make these decisions. Should there be any additional questions or concerns or if further recommendations are needed, feel free to contact me by email at [email or web address] Olena Grijalva MS, OTR/L Occupational Therapist [facility] Jackson [email or web address] documented in this e ncounter Plan of Treatment + + +--------+ + + | Name | Type | Priori | Associated Diagnoses | Order Schedule | | | | ty | | | + + +--------+ + + | ND OCCUPATIONAL | Procedures | Routin | | Ordered: 06/14/2009 | | THERAPY EVALUATION | | e | Lipomyelomeningocele | | + + +--------+ + + documented as of this encounter Visit Diagnoses + + | Diagnosis | + + | Lipomyelomeningocele - Primary Spina bifida without mention of hydrocephalus, lumbar | | region | + + documented in this encounter
--- OUTSIDE RECORDS SUMMARY | ~2019-10-26 | XMS | Encounter Summary ---
Demographics + + + | Address | [address] | | | [place] [address] | + + + | Home Phone [...] [place] | | | | | [address] | | + + + + + Care Team Providers + +------+ + | Care Guide Cruise Name | Role | Phone | + [...] as of this encounter Progress Notes Interface, Tiger Machine Operator In - 08/09/2005 5:02 AM PDT [id number] [facility] Date: 07/02/2005 Clinic Name: [facility] SPINA BIFIDA Subjective: Pete was seen for a neurosurgical evaluation in the Sp[facility] Bifida Clinic on July 02, 2005. Pete is a 9-1/2-year-old boy with a lumbosacral level lipomyelomeningocele. He had his initial repair in January 1996, and a tether release in February 2003. He has had problems with deformity of his right lower extremity and foot and underwent tendon transfer and flexor releases in December of this year. He reports no ongoing neck, back, or leg pain. He has had no changes in bowel or bladder function and no numbness or tingling in his legs. Physical Examination: General: Pete was alert. He had rather vague answers to questions, and his father answered most of the questions. HEENT: His pupils were equal and reactive to light and accommodation. He had full extraocular movements without nystagmus. His facial movements were symmetric. His tongue and uvula were midline. Extremities: He had full strength in his upper extremities and in his left lower extremity. In his right lower extremity, his iliopsoas were 5, quads 5-, hamstrings 5-, dorsiflexors 4+, plantar flexors 4+, EHL 4. His deep tendon reflexes were 2+ in the upper extremities with negative Terry's bilaterally. They were 1+ in the left patella, 0 at the right patella, and 0 at bilateral Achilles. Forward bending test showed a scoliotic curve that was convex to the right. He also had a prominent spinous process at about L1, that was slightly tender to palpation. There was no erythema or skin discoloration indicating pressure problem at the site. Assessment and Plan: Pete is doing well since his tendon transfer and is showing no sign of spinal cord retethering. I reviewed the signs and symptoms with his father and asked him to call up if they should occur. Otherwise, Pete will be seen routinely in the Spina Bifida Clinic. Karoline MorrisNIonP. / [id number] / [id number] / [id number] / Electronically signed by Soha Alfaro 08-08-2005 07:59:33 AM documented i n this encounter Plan of Treatment Not on filedocumented as of this encounter Visit Diagnoses Not on filedocumented in this encounter"
--- OUTSIDE RECORDS SUMMARY | ~2019-10-26 | XMS | Encounter Summary ---
Demographics + + + | Address | [address] | | | [place] [address] | + + + | Home Phone | | + + + | Preferred Language | Unknown | + + + | Marital Status | Single | + + + | Alevism Affiliation | CHR | + + + [...] [place] | | | | | [address] | | + + + + + Care Team Providers + +------+ + | Care Business Solution Analyst Name | Role | Phone | + +------+ + | Dajuan Jerome MD | PCP | | + +------+ + Encounter Details +--------+ + + + + | Date | Type | Department | Care Team | Description | +--------+ + + + + | 11/17/ | Transcribed | | Dictation, Other | Transcribed | | 2001 | | | | | +--------+ + [...] as of this encounter Progress Notes Interface, Jigmaker In - 08/03/2006 3:07 AM [facility] [place] [address] [place], [place] [address] or November 17, 2001 Umm Kaufman M.D. [address] [place] [address] RE: ADAMA OROZCO MR #: [id number] Dear Dr. Kaufman: It is a pleasure seeing 5-year-old Adama Orozco today in the [facility] Bifida Clinic for routine visit. Dr. Johnson had last seen him on May 20, 2000. Overall, he has been doing well since his last visit. He occasionally still has problems with back or leg discomfort, but this does not seem to be worsening or limiting his activity. It seems to be more at the end of the day. The other concern that father has is he is still incontinent for urine and stool as well as needing a scheduled intermittent catheterization. He needs manual disimpaction of the stool. Father does work on having scheduled toilet times; however, Adama has difficulty sensing when he needs to go and also making himself urinate or stool. Otherwise, he is running. He is active in kindergarten, doing well. Lipomyelomeningocele: He has fairly symmetric gait. He has no difference grossly in the limb size nor sensation nor strength. He is able to run quite well. He can climb without any difficulty. His muscle mass is symmetric in the calves as well as the feet size is symmetrical, may be slight decrease in musculature on the right dorsum of the foot. The DTRs of the patella are symmetric. His strength is 5/5 throughout. The Babinski signs are downgoing and symmetric. Lipomatous mass is to the right of the midline. There is a well-healed surgical scar in the upper lumbar through the sacral region. There is no paresthesias, discoloration, or drainage. There is a step sign in the lumbar region. The parents have not noticed any increase in size of the lipomatous mass. Orthopedics: As stated above, he is able to run without difficulty. He does not seem to have as much asymmetry in muscle mass and limb size. He does not have asymmetry in strength as noted on previous visits. On previous visits, right side was slightly less in terms of strength. Neurogenic bladder. He gets straight cath'd with an #8 Setswana every 4 hours during the daytime, and he does help his father with this lately. He is not at this time straight catheterizing himself. He is incontinent between those times and some times when he does not drink, he can go 2 hours without urinating. However, most of the times, his diapers are wet, and he is in pull-ups at this time. He had been on Ditropan in the past. He did not have any problems with this. They were unable to continue it for quite some time due to insurance issues. They were unable to afford to pay for the medication out of pocket. He has not had any history of urinary tract infections. Neurologic bowel: As stated above, he has been incontinent. He is on a scheduled stooling program. However, he has difficulty making a formed stool himself. They have increased his fiber in his diet. However, he is not taking any extra supplements at this time. His father describes his stools as soft, they are not hard. Of note, he does soil his underwear on a regular basis. The father often needs to manually disimpact him. He needs manual disimpaction almost daily. Not taking any stool softeners at this time. Development: He is doing quite well developmentally. He has had formal testing in the past showing an overall IQ of about 89. Gross motor function is developmentally appropriate at this time. FAMILY SITUATION: There is 1 younger brother and 1 older brother as well as the parents. They are currently living in the [facility]. Things seem to be going pretty well and both parents are consistent with [place]'s care. On physical exam, the height is 112 cm, arm span 117, weight is 18.9 kg, head circumference is 51.5. Heart rate is 123 and blood pressure is 112/65. He is in no acute distress. HEENT exam is notable for lipomatous lesions on his lips. Otherwise, normal HEENT exam. Cardiovascular, regular rate and rhythm. There is a soft systolic ejection murmur. It is vibratory in nature and consistent with a Still's murmur. His lungs are clear throughout. Abdomen is soft, nondistended, nontender to palpation. There are no masses noted. No enlarged bladder noted. : Circumcised male with testes descended bilaterally. There are no rashes noted. Extremities are warm and well perfused. Neurologic, he is alert and interactive. His cranial nerves 3 through 12 are intact and symmetric. He has 5/5 strength throughout including in the lower extremities. DTRs are 2+ and symmetrical at the patella. Babinski's are downturning bilaterally. He has a normal gait. He had a renal ultrasound today which was essentially normal. He had normal kidneys noted, significant hydronephrosis. His initial bladder volume was 112 cc with a postvoid residual of 11 cc. DISCUSSION: Overall, things are medically stable with Adama. However, there are a few issues which are remaining to be of challenge at this time. 1. He still has problems with bladder incontinence and often has wet pull ups most of the time. He has intermittent catheterization every 4 hours. We think that he would benefit from some urodynamic studies and possibly consider restarting the Ditropan. His last note that was from Urology in February 2001 noted that they had recommended that he take 4 cc p.o. t.i.d. at that time. We will discuss this with the urologist today and see if it will be worthwhile for him to restart the Ditropan. 2. He continues to have some soiling of his pull-ups during the day from stool. We feel that significantly increasing the fiber will help him have a more formed stool and hopefully will decrease the amount of soiling he has during the daytime. They will need to have scheduled toilet times as well as likely some help with disimpaction. We recommend FiberCon 1 tablespoon p.o. q.d. with an ounce of fluid. If he is unable to tolerate that or take that, then he can possibly try Metamucil wafers, 1 to 2 wafers per day. At this time, we will start with the FiberCon. 3. He will need to have some latex allergy testing today. So he will have a CAIT test for the latex allergy before they leave the clinic today. Thank you very much for having us see Adama Orozco today. It is always a pleasure to see him. He is doing quite well. Please feel free to call us if you have any additional questions or any clarifications and recommendations. Please refer to some of the letters from the urologist as well as the physical therapist and the social workers who have seen Adama today for more information. Sincerely, Kinjal Romero M.D. Resident in Pediatrics Robert Johnson M.D. Developmental Pediatrics JAT / [id number] / [id number] / [id number] / [id number] signed by Interface, Jigmaker In at 08/03/2006 3:07 AM PDTdoc umented in this encounter Plan of Treatment Not on filedocumented as of this encounter Visit Diagnoses Not on filedocumented in this encounter"
--- OUTSIDE RECORDS SUMMARY | ~2019-10-26 | XMS | Encounter Summary ---
Demographics + + + | Address | [address] | | | [place] [address] | + + + | Home Phone [...] [place] | | | | | [address] | | + + + + + Care Team Providers + +------+ + | Care Ruling Machine Feeder Name | Role | Phone | + [...] | 01/10/ | Telephone | [facility] 7th | [place], | Social work | | 2008 | | Floor [address] | Neli, BREAK OUT WORKER [address] | consultation | | | | St Mailcode: [facility] | [address] | | | | | [place], [place] | [address] [place], [place] | | | | | [address] | [address] | | | | | [phone] | | | +--------+ + + + [...]
--- OUTSIDE RECORDS SUMMARY | ~2019-10-26 | XMS | Encounter Summary ---
Demographics + + + | Address | [address] | | | [place] [address] | + + + | Home Phone | | + + + | Preferred Language | Unknown | + + + | Marital Status | Single | + + + | Rastafari Affiliation | CHR | + + + [...] [place] | | | | | [address] | | + + + + + Care Team Providers + +------+ + | Care Circular Ripsaw Operator Name | Role | Phone | + +------+ + | Dajuan Jerome MD | PCP | | + +------+ + Reason for Visit + + + | Reason | Comments | + + + | Spina bifida | Routine annual follow up | + + + Consultation (Routine) +--------+--------+ + + + + | Status | Reason | Specialty | Diagnoses / | Referred By | Referred To | | | | | Procedures | Contact | Contact | +--------+--------+ + + + + | Closed | | [facility] Spina | Diagnoses | Marcski, | Cdr Spina | | | | Bifida | Spina | Dajuan Hinson MD | Bifida 707 | | | | | bifida | [place] | [facility] | | | | | without | COUNTY | Mailcode: | | | | | mention of | HEALTH DEPT | [facility] | | | | | hydrocephalu | [address] | [place], [place] | | | | | s, lumbar | [place], | [address] | | | | | region | [place] [address] | Phone: | | | | | Neurogenic | Phone: | [phone] | | | | | bladder, NOS | [phone] | Fax: | | | | | Procedures | Fax: | [phone] | | | | | [place] | [phone] | | | | | | [place],RETROPERI [...] + + | 05/03/ | Office | [facility] at [facility] | Nereyda Solares PNP | Spina Bifida without | | 2007 | Visit | [address] | [address] | Mention of | | | | St Mailcode: [facility] | Maritza Ferreira [place], | Hydrocephalus, | | | | [facility] [place] | [place] [address] | Lumbar Region | | | | [address] | [phone] | (Primary Dx); | | | | [phone] | | Neurogenic Bladder, | | | | | | NOS; Neurogenic | | | | | | Bowel; Contracture | | | | | | of Ankle and Foot | | | | | | Joint | +--------+---------+ + + + Social History [...] + + + | Blood Pressure | 109/72 | 05/03/2008 9:16 AM | | | | | PDT | | + + + + + | Pulse | 105 | 05/03/2008 9:16 AM | | | | | PDT [...] + + + + | Weight | 39.8 kg (87 lb 11.9 | 05/03/2008 9:16 AM | | | | oz) | PDT | | + + + + + | Height | 152.1 cm (4' 11.88") | 05/03/2008 9:16 AM | | | | | PDT | | + + + + + | Body Mass Index | 17.2 | 05/03/2008 9:16 AM | | | | | PDT | | + + + + + documented in this encounter Progress Notes Nereyda Solares - 05/24/2008 2:55 PM PDTFormatting of this note might be different from the o joie. SPINA BIFIDA STAFFING SUMMARY Pete is a 12 y.o. male here for a follow-up in Spina Bifida Clinic. His last full team visit was one year ago. He is accompanied today by his father, Yamil. Chief Concerns: No significant concerns identified on interview, however, there are always ongoing concerns about stool and bladder incontinence and recurring headaches. 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 Past Medical History Diagnosis Date Neurogenic Bladder [...] and to the right noted on exam-07-20 Past Surgical History Procedure Date Pr release tethered spinal cord,lumbr 02/20/2003 First repair, release of lipomyelomeningocele 01/1996 Right ankle/foot orthopedic surgery 12/2004 DR. LUNA COTTRELL Right ankel/foot complex orthopedic surgery 10/26/07 DR. MERARY CANTRELL ([facility]) History Social History Narrative Pete lives with his family (parents Yamil and Nicky and younger brother, Jared). Pete 's older brother, Dave, lives with his aunt in [place], [place]. Pete is the middle child. Nathan paul live in [place], [place] where he attends school. Current outpatient prescriptions : Catheter Misc.(Non-Drug; Combo Route) Misc, Self-Cath St raight Tip 10 fr, 16 inches for CIC program for Neurogenic Bladder 596.54., Disp: 60, Rfl: 1 1 OXYBUTYNIN CHLORIDE 5 MG ORAL TAB, 1 tablet TID, Disp: , Rfl: Sodium Fluoride 0.25 (0.55) mg Oral CHEW, None Entered, Disp: , Rfl: ALLERGIES: Amoxicillin (rash). No history of reaction to Latex. Latex precautions are obser vivienne. INTERVAL HEALTH: Excellent without significant illness, accident or injury. He did have rig ht ankle/foot surgery last October at [facility]. LIPOMYELOMENINGOCELE: Initial repair 1995. Secondary untethering surgery [...] Current Treatment: Clean intermittent catheterization: yes size: 10 English. He is prescrib ed 5 mg oxybutynin 3 times daily but may take it just once a day or even may skip a day. He is to catheterize every 4 hours and reports doing better with that but he continues to leak between both during the day and overnight. Self: Yes. [...] Oxybutynin. Imaging: US KIDNEY & BLADDER: Renal Ultrasound: 05/03/08. Comparison: 04/21/07. Clinical History: Spina bifida. Findings: The kidneys are normal in location, morphology, and echogenicity. The right kidne y measures 8.3 cm x 4.9 cm x 4.5 cm and has a volume of 97 cc. The left kidney measures 8.7 cm x 4.7 cm x 3.9 cm and has a volume of 83.1 cc. Renal volumes are normal for the patient's weight of 40 kg. No stones, cysts, or masses are seen. There is no hydronephrosis or hydrou reter. The bladder is trabeculated, as previously noted. There is no evidence of debris. Pre -catheterization bladder volume measures 288 cc. There is no post catheterization residual. IMPRESSION: Normal renal ultrasound. NEUROGENIC BOWEL: yes Current Treatment: sits on comode as part of AM care, and again after dinner. Tried Miralax but reports it made stools too loose. No formal bowel program is practiced. Current Symptoms: Daily accidents Patterns of Evacuation: TABLE OF BOWEL [...] medication, an d hence no continence. ORTHOPEDICS: Mild dextroscoliosis noted on spine x-ray 11/17 that gradually diminished over time until straight spine without scoliosis seen 06/20. Spine is clinically straight. There i s slight pelvic obliquity. 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 He underwent a second complex surgery 10/[address] Cantrell at [facility] with good results and much improved alignment of his right foot. He and his father are quite pleased with the resu lts both functionally and aesthetically. NEUROMOTOR & MOBILITY: Subtle motor deficits affecting right foot. Strength is otherwise in tact. Right Solid Ankle AFO that fits him well but one of the straps needs to be replaced. H e plays baseball regularly (pitches) and should wear the AFO at all times when awake, karyn bustillos, he cannot fit his baseball shoe over the AFO. SKIN/ INTEGUMENT: Two healing wounds under metatarsal heads reported by our team physical t herapist. Not seen by this examiner. At risk for breakdown due to dimnished sensation planta r surface of both feet and sports participation. Pete is active throughout the day and pl ays baseball. 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 HEADACHES: History of periodic headaches, likely migraines. He reports a headache approxima tely every 10-14 days occurring in the late afternoon. Pain is frontal, behind the eyes. Ibu profen, taken once, is almost always effective. He has not experienced an increase in freque ncy or severity and does not have nausea, vomiting, double or blurred vision (reports one ev ent when he felt ill and vomited with headache). He is more light sensitive with headaches. His mother and aunts have migraine history. OPHTHALMOLOGY: We have encouraged baseline evaluation. Yamil reports an optometry screening exam at [facility], negative for visual acuity problems. ROS: Except as stated above the rest of the review of systems is entirely negative. EDUCATION/INDEPENDENCE: Father reports adequate school progress without need for remedial c lasses this summer. He completed the 6th grade this year. Resource room for math, otherwise mainstreamed. He will begin middle school in the fall. PHYSICAL EXAM: BP 109/72, Pulse 105, Ht 152.1 cm (5') (53 %ile), Wt 39.800 kg (87 lbs 11.9 oz) (37 %ile), Weight for age(%) 37.43%, BMI for age(%) 35.42%, Length for age(%) 53.17%. General appearance: pink mucous membranes, without clubbing. HEENT: Normocephalic. EOMs a re full. PERRLA. Red reflexes are symmetrical. No nystagmus or strabismus. Fundi are benign with normal cupping bilaterally. No significant oral lesions. The neck is supple. Chest and back: well healed linear surgical scar in lumbar region, without parasthesia, drainage, hirs utism, or discoloration. Lungs are clear. Heart: Regular rhythm and physiologic sounds. Abd omen: No organomegaly or masses, tenderness or guarding. Genitalia: Deferred to Urology. Pu lses normal. Lymphatics normal. Skin: Intact. Orthopedics: Spine straight. Mild pelvic obliq uity. Lower limbs with normal joint alignment. Right ankle and foot well aligned and neutral orientation overall. Neuromotor: With exception of right ankle and foot the upper and lower extremity range of motion is without restriction or spasticity. Full strength to confrontat ion noted except for weakness of right hip extensors and muscle groups about the ankle and f oot. At the right ankle there is limited range into both dorsiflexion and plantar flexion. R ight calf is smaller than left. Neurological: Oriented, age appropriate conversation and beh avior. Cranial nerves 2-12 intact. DTRs 2+ and symmetric in upper extremities. Negative Ho ffman bilaterally. Patellar DTRs 1+ bilaterally. Left Achilles slight response, no response on right. Gait is smooth without abductor lurch. The AFO provides good support for the right lower limb. SPINA BIFIDA TEAM IMPRESSIONS AND RECOMMENDATIONS: 1. Neurosurgical: No interval concerns. Stable. 2. Opthalmology: No apparent visual concerns by report. We encourage dilated fundal exam w ith an geophysical support specialist, locally or here at [facility]. Dr. Jerome to make referr al. 3. Neurogenic Bladder: Stable ultrasound today. We have again counseled Pete about takin g Ditropan and cathing on regular schedule. Prescriptions are updated for catheters, diapers and Ditropan. [facility] to order countdown timer watch through the Family Support Program. 4. Neurogenic Bowel: Incontinence an ongoing problem. We do encourage regular formal progra m. Pete is advised to take smaller dose of Miralax rather than discontinue its use. We chi ve reviewed the use of suppositories or enemas & Chait cecostomy. Pete is not ready to co nsider a surgery. 5. Orthopedic: Well-aligned right foot/ankle status post recent surgery. Continue [facility] care and management. 6. Neuromotor & Mobility: Excellent motor skills & strength. Question of weakness of right hip extensors today noted by this examiner only. Recheck next visit. 7. Psychoeducational: Ready for middle school. Enjoy the summer! 8. Headaches: Probable migraine headaches with positive family history. If they increase in severity, frequency go to Dr. Jerome for migraine work up and management. Today's finding, interpretations, and recommendations were shared with Ramiro wh o understand and concur. Pete was seen by full Spina Bifida Team including Pediatric Nurs e Practitioner, Social Work, Physical Therapy, Urology, Neurosurgery. Clinic time was 60 min utes of which more than 50% was spent in care counseling. FOLLOW UP: Full team with renal ultrasound in 1 year. KAREL Matthews Pediatric Nurse Practitioner Spina Bifida Program PH: [phone] Email: [email or web address] documented in this encounter Plan of Treatment Not on filedocumented as of this encounter Visit Diagnoses + + | Diagnosis | + + | Spina bifida without mention of hydrocephalus, lumbar region - Primary | + + | Neurogenic bladder, NOS | + + | Neurogenic bowel | + + | Contracture of ankle and foot joint | + + documented in this encounter
--- OUTSIDE RECORDS SUMMARY | ~2019-10-26 | XMS | Encounter Summary ---
Demographics + + + | Address | [address] | | | [place] [address] | + + + | Home Phone [...] [place] | | | | | [address] | | + + + + + Care Team Providers + +------+ + | Care Payable Processor Name | Role | Phone | + +------+ + PCP | Unavailable | + +------+ + Encounter Details +--------+ + + + + | Date | Type | Department | Care Team | Description | +--------+ + + + + | 03/21/ | Results | [facility] | Dave Malik MD | | | 1997 | Only | Floor [address] | [address] | | | | | St Mailcode: [facility] | Maritza Ferreira [place], | | | | | [facility] [place], [place] | [place] [address] | | | | | [address] | [phone] | | | | | [phone] | | | +--------+ + + + [...] + +---------+ + + | [facility] DEPARTMENT OF | | | | | RADIOLOGY | | | | + +---------+ + + documented in this encounter Visit Diagnoses Not on filedocumented in this encounter"
--- OUTSIDE RECORDS SUMMARY | ~2019-10-26 | XMS | Encounter Summary ---
Demographics + + + | Address | [address] | | | [place] [address] | + + + | Home Phone | | + + + | Preferred Language | Unknown | + + + | Marital Status | Single | + + + | Baptism Affiliation | CHR | + + + [...] [place] | | | | | [address] | | + + + + + Care Team Providers + +------+ + | Care Fish Salter Name | Role | Phone | + +------+ + | Dajuan Jerome MD | PCP | | + +------+ + Encounter Details +--------+ + + + + | Date | Type | Department | Care Team | Description | +--------+ + + + + | 03/03/ | Office | [facility] | Report, [...] as of this encounter Progress Notes Interface, Attorney General In - 09/12/2006 5:15 AM PDTCLINIC DATE: 03/03/2001 CLINIC NAME: [facility] DISCIPLINE: SPECIAL EDUCATION REFERRAL: Pete Orozco is a 5-year 2-month-old male accompanied to clinic today by his mother, Nicky Duron, to establish baseline psychometrics in Psychology and Education. 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 EDUCATIONAL SUMMARY: Pete was cooperative and appeared to attempt all test items administered during the hour-long testing session. His scores are felt to be a reliable and valid indication of his academic abilities at this time. Administered today were two assessment batteries for children. Both assessments provide standard scores which have a mean of 100 and a standard deviation of 15. Percentiles represent values that indicate the percent of the distribution that is equal to or below a particular score. The Duncan-Survey of Early Academic and Language Skills is an individually administered, nationally normed measure of children's vocabulary and pre-academic skills. On the Vocabulary Subtest the child identifies, by pointing or naming, pictures of objects or actions, and points to or names objects based on verbal descriptions and their attributes. On this subtest, Pete received a standard score of 89 and percentile of 23. On the Numbers, Letters and Words Subtests, the child points to or names numbers, letters, or words; counts, points to show knowledge of number concepts (e.g., "smallest," "half") and solves number problems. On this subtest, Pete received a standard score of 80 and a percentile of 9. Also completed today was the Duncan Assessment Battery for Children. On the Faces and Places Subtest, Pete received a standard score of 67 and a percentile of 1, indicating that his performance was better than only 1% of similarly-aged peers. This particular subtest measures a child's ability to name the fictional character, famous person, and well-known place pictured. Pete was able to identify Sherrill Macario, but not a number of other fairy tale, cartoon, or TV characters that in the opinion of this examiner are culturally dated. On the Arithmetic Subtest, Pete received a standard score of 84 and a percentile of 14. This subtest measured his ability to identify numbers, count, compute, and demonstrate understanding of mathematical concepts. Pete had 1-to-1 correspondence up to 7 as evidenced by his ability to count objects accurately to that number. Shown different numerals, he was able to identify several by name, but was unable to compare sets of objects for greater or lesser value. On the Riddles or Abstract Reasoning Subtest, Pete received a standard score of 91 and a percentile of 27. This was a relative strength for Pete, measuring his ability to infer the name of a concrete or abstract verbal concept when given several of its characteristics. Performance on Riddles is dependent to some extent on richness of early environment, cultural opportunities at home and being read to. On the Reading and Decoding Subtest, when shown letters and asked to name them, Pete received a standard score of 84 and percentile of 14, despite the fact that he was unable to correctly identify by naming the letters: A, T, D, N, E, m, p, s, r, or d. Pete received a Global Achievement Standard Score of 78 and a percentile of 8. It is felt that Pete's global score is depressed by his relatively weak performance on Faces and Places subtest. His standard scores on the K-SELS and the Academic and Riddles subtests of the K-ABC are more outbound call center representative of his academic and cognitive abilities. Informal assessment and interview with Ms. Duron informs that Pete is able to count to ten and identify by naming the numbers 1-10. He does not yet know the alphabet, but is able to write his name and identify by naming all the colors. Asked to draw a picture of himself, he produced a drawing of a recognizable smiling face. It is felt that Pete might benefit from a multisensory approach to learning letter/sound associations in which he says and hears the letter name while simultaneously tracing the letter. This could be done in a tray with colored sand, for example, or with fingerpaints, etc. Pete should continue participating in Head Start as well as any other special educational programs for which he might qualify as a child with a health impairment. The parents are encouraged to continue providing enrichment and language experiences, as well as play opportunities to socialize with other children. It was a pleasure working with Pete and his mother today. It is hopeful that his evaluation here today provides a baseline against which further academic growth can be measured. If there are questions about this report, please call my office at . Priscilla Cuello M.Ed. Drier Belt Conveyor KB:[id number] signed by Interface, Attorney General In at 09/12/2006 5:15 AM PDTInterf latoya, Attorney General In - 09/12/2006 5:15 AM PDTCLINIC DATE: 03/03/2001 CLINIC NAME: [facility] DISCIPLINE: PSYCHOLOGY REFERRAL AND BACKGROUND INFORMATION: Pete Orozco, now at the chronological age of 5-years 2-months, was seen today for his first psychological evaluation through the [facility], as per clinic protocol. 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 According to the chart, Pete does not have hydrocephalus. He is described as a child with "full motor functioning" with gross motor skills at or above age level. His primary care physician is Dr. Umm Miguel. Pete lives at home with his parents, Yamil Orozco and Nicky Duron, in [place], [place]. Also in the home is an older half-sibling, Dave, and a younger full sibling, Jared. According to Ms. Donovanell, Dave has been diagnosed with Attention-Deficit/Hyperactivity Disorder and receives special education services in the fourth grade. Pete is attending a Head Start Program this year, three days per week, and will begin kindergarten in the fall. Pete has never been eligible for Early Intervention or Lapping Machine Tender Special Education Services. Ms. Duron expressed few concerns for Pete at present. She notes that he seems happy all the time. He really loves to play and watch television. He has friends at school and one neighborhood boy who he plays with regularly. Her only concern is that Pete seems to cry easily when disciplined. PROCEDURES USED: Deann Preschool and Primary Scale of Intelligence, Revised; Behavior Assessment System for Children - Parent Rating Scales; record review and parent interview. Total time for this evaluation was two hours. BEHAVIORAL PRESENTATION: Pete presented in clinic today as an adorable, brown-haired child who was well dressed and groomed. Upon meeting this examiner, Pete made good eye contact and responded to my initiations. Throughout the evaluation, Pete was socially engaged. He was observed to have good joint attention and turn-taking skills. Pete was a little active and distractible throughout the standardized testing, yet this is not unusual for children his age. He was attentive and cooperative, completing all necessary items. No atypical behaviors were noted. Scores reported below should be considered valid indicators of current functioning levels. TEST RESULTS: Intellectual Functioning: The Deann Preschool and Primary Scale of Intelligence, Revised, provides three IQ scores, each with a mean of 100 and standard deviation of 15. Pete completed nine subtests due to time constraints. These tests have a mean of 10 and standard deviation of 3. Based on his performance today, Pete obtained a Verbal IQ score of 91 8, a Performance IQ of 89 7, and a Full-Scale IQ score of 89 5. Each of these scores falls at the lower end of the average range when compared to other children Pete's age. There is no significant discrepancy between his Verbal and Performance abilities as measured by this instrument. Subtest scores were as follows: VERBAL PERFORMANCE Information 7 Object Assembly 7 Comprehension 8 Geometric Design 5 Vocabulary 10 Block Design 7 Similarities 9 Mazes 10 Picture [id number] As can be seen from the above scores, Pete does show an interesting trend in his performance. Over time, he did better in both the verbal and nonverbal areas (subtest scores are listed in the order they were administered). I am unclear whether Pete's improvement over time was due to his being more comfortable with the session, or if, coincidentally, the subtests at the end of this intelligence test are actually strength areas for him. Behavioral Adjustment: Ms. Duron, Pete's mother, completed the Behavior Assessment System for Children. This paper and pencil instrument provides information in the areas of internalizing and externalizing behavioral difficulties, and allows for a comparison with a normative sample. Scores reported below have a mean of 50 and standard deviation of 10. A valid profile was produced for Pete. Based on his mother's responses, he obtained an Overall Behavioral Symptom Index T Score of 48, which falls within the Average range. Similarly, his Externalizing Problem Composite T Score of 46 and Internalizing Problem Composite T Score of 53 were also within the Average range. All clinical subscales were within the Average range. Pete's Adaptive Skill Composite T Score of 36 was within the At-Risk range. The subscales of Adaptability and Social Skills were also at risk. CONCLUSIONS AND RECOMMENDATIONS: Pete Orozco, now 5-years 3-oddbcq-gmo, was seen for a baseline assessment of his intellectual functioning as per protocol for the [facility]. At the present time, Pete is functioning within the Low Average range compared to age mates, without a significant discrepancy between Verbal and Performance abilities. His Full-Scale IQ measures out at 89 today. Behaviorally, Ms. Duron denies any concerns about internalizing or externalizing difficulties, yet there are some concerns about his adaptability. This was echoed by her report during interview that he seems to cry easily when disciplined. At the present time, I have no specific recommendations. Pete appears appropriately placed in Head Start, and should transition easily into a regular kindergarten classroom. His adaptability and emotionality should be closely monitored, yet no intervention appears appropriate at this time. If concerns increase, then referral to a local mental health provider would be warranted. Thank you for the opportunity to meet Pete and his mother today. If you have any questions about this report or would like additional information, please do not hesitate to contact me at . Huber Diehl, Ph.D. Psychologist DS:[id number] signed by Interface, Attorney General In at 09/12/2006 5:15 AM PDTdocume nted in this encounter Plan of Treatment Not on filedocumented as of this encounter Visit Diagnoses Not on filedocumented in this encounter
--- OUTSIDE RECORDS SUMMARY | ~2019-10-26 | XMS | Encounter Summary ---
Demographics + + + | Address | [address] | | | [place] [address] | + + + | Home Phone [...] [place] | | | | | [address] | | + + + + + Care Team Providers + +------+ + | Care Machine Hoop Maker Helper Name | Role | Phone | + +------+ + | Dajuan Jerome MD | PCP | | + +------+ + Encounter Details +--------+ + + + + | Date | Type | Department | Care Team | Description | +--------+ + + + + | 12/19/ | Documentati | Anesthesiology | Unknown . | | | 2004 | on | [address] | | | | | | [place], | | | | | | [place] [address] | | | +--------+ + + + [...] + + documented in this encounter Results ANESTHESIA/SEDATION (2004 10:07 AM PST) + + + | Narrative | Performed At | + + + | Ordered by an unspecified provider. | | + + + + + | Transcriptions | + + | 2004 10:07 AM [facility] Anesthesia PostOp Report | | | | Patient: ADAMA OROZCO J Med Rec: [id number] Bonilla M Bdate: 1995 | | Date/Time Data | | Entered Into [facility] | | Anesth PostOp | | Surgery Date [id number] 12/19/04 10:07 | | [id number] 02/21/03 09:46 | | Anesthesiologist BENIGNO KNUTSON 12/19/04 10:07 | | RAMON CARRANZA 02/21/03 09:46 | | Resident Anesthesiolog EDMUNDO TRACY 12/19/04 10:07 | | EBCKI GUZMAN 02/21/03 09:46 | | Complications | | None/None Reported YES 02/21/03 13:11 | | Outcomes Information | | Satisfied with care YES 02/21/03 13:11 | | Info obtained from FAMILY 02/21/03 13:11 | | Outcome of Anesthesia NO CHANGE IN HOSPITAL COURSE 02/21/03 13:11 | | | + + documented in this encounter Visit Diagnoses Not on filedocumented in this encounter"
--- OUTSIDE RECORDS SUMMARY | ~2019-10-26 | XMS | Encounter Summary ---
Demographics + + + | Address | [address] | | | [place] [address] | + + + | Home Phone | | + + + | Preferred Language | Unknown | + + + | Marital Status | Single | + + + | Uatsdin Affiliation | CHR | + + + [...] [place] | | | | | [address] | | + + + + + Care Team Providers + +------+ + | Care Lead Teacher Name | Role | Phone | + +------+ + PCP | Unavailable | + +------+ + Encounter Details +--------+ + + + + | Date | Type | Department | Care Team | Description | +--------+ + + + + | 02/01/ | Office | [facility] | Consult, [...] as of this encounter Progress Notes Interface, Distribution Engineer In - 05/26/2006 1:08 AM PDTCLINIC DATE: 02/01/2003 CLINIC: [facility] DISCIPLINE: PEDIATRIC NEUROSURGERY Pete is a 7-year-old boy who underwent repair of a lipomyelomeningocele shortly after . He was first seen in May with complaints of low back and leg pain. At that time his motor strength had not changed nor were there any noted abnormalities in his lower extremity function. Since that time Pete has continued to deteriorate. He is now having some weakness in the right lower extremity with new onset of high arching and toe curling on that side. He has also had some blisters that he had never had before. He continues to complain of low back and leg pain located specifically in the inner thigh region bilaterally. He also complains that his legs fall asleep. There have been no changes in his bowel and bladder function. On examination today Pete is awake, alert, and interactive. His cranial nerves are completely intact. Motor and sensory of the upper extremities was within normal limits. In the lower extremities he was notable for decreased plantar and dorsiflexion on the right. He was not able to toe walk as well on the right foot and had difficulty heel walking as well. Inspection of his feet reveal a high arch on the right foot and curling of the right toes. He also has a 0.5 cm discrepancy in foot length with the right foot being shorter. Calves are symmetric at 22.5 cm bilaterally. He underwent magnetic resonance imaging (MRI) today. Those films have not been reviewed as of yet. However, based on his deterioration in function as well as physical changes in the right lower extremity consistent with retethering of the spinal cord, I recommended a reexploration for untethering of the lipomyelomeningocele. I discussed with the father the risks of the surgery, specifically damage to the nerve roots and spinal cord resulting in lower extremity numbness, weakness, and complete loss of bowel and bladder control, cerebrospinal fluid leak, meningitis, hemorrhage, and . They have agreed to proceed and would like to proceed with surgery in the next coming weeks. Soha Nettles M.D. Holter Scanning Technician, Pediatric Neurosurgery SD/[id number] signed by Interface, Distribution Engineer In at 05/26/2006 1:08 AM [facility]ed in this encounter Plan of Treatment Not on filedocumented as of this encounter Visit Diagnoses Not on filedocumented in this encounter"
--- OUTSIDE RECORDS SUMMARY | ~2019-10-26 | XMS | Encounter Summary ---
Demographics + + + | Address | [address] | | | [place] [address] | + + + | Home Phone [...] + + + | Author | [facility] | + + + | Organization | [facility] | + + + | Address | Unknown | + + + | Phone | Unavailable | + + + Support + + + + + | Name | Relationship | Address | Phone | + + + + + | Sarahi Orozco | ECON | [address] | | | | | [place] | | | | | [address] | | + + + + + Care Team Providers + +------+ + | Care Prison Librarian Name | Role | Phone | + [...] as of this encounter Progress Notes Interface, Senior Core Java Developer In - 10/01/2006 5:02 AM PSTCLINIC DATE: 05/20/2000 CLINIC NAME: [facility] DISCIPLINE: PHYSICAL THERAPY Chronological Age: Odoi-jtzwp-tjms-months. Gross Motor Age-Equivalent: Wckrc-nbvmo-27-months. Developmental Motor Quotient: 79. Standard Deviation: -1.4. [...] MOTOR AGE-EQUIVALENT: Pete was scored on the [place] Developmental Gross Motor Scale, a standardized test [...] ECR:[id number] cc: PATIENT PARENTS PRIMARY CARE PHYSICIAN [id number] signed by Interface, Senior Core Java Developer In at 10/01/2006 5:02 AM PSTInterf latoya, Senior Core Java Developer In - 10/01/2006 5:02 AM PSTCLINIC DATE: [...] planning for bowel management. Landen Jj MO:[id number] signed by Interface, Senior Core Java Developer In at 10/01/2006 5:02 AM PSTInterf latoya, Senior Core Java Developer In - 10/01/2006 5:02 AM PSTCLINIC DATE: [...] orthopedic needs. He is currently living in [place] with his family. This family returned to [place] from [place], [place] last June. Nicky reports that she is currently home time study technician with the children and that Yamil is working outside of the home as a spray cementer. There is extended family nearby in the [place] area. A review of community resources reveal that Pete's medical coverage is through the [facility], and the current managed care organization is [employer]. Primary medical care is provided through Umm Kaufman M.D. The family has applied for Social Security income but has not been found eligible. With the identification of neurogenic bowel and bladder problems and the need to begin a clean intermittent catheterization program, the family tries to re-apply for Social Security income. This social service technician is unsure whether that diagnosis itself will make him eligible. Pete is not currently being followed through an Early Intervention program, but they have applied to have him placed in a Head Start program in the fall. There are no social work activities planned, although Social Work remains available as needed. Neli Robison L.C.S.W. Proof Coin Collector JUNE/[id number] signed by Interface, Senior Core Java Developer In at 10/01/2006 5:02 AM PSTInterf latoya, Senior Core Java Developer In - 10/01/2006 5:02 AM PSTCLINIC DATE: [...] our next full appointment. Gilbert Romero M.D. Surgical Clinical Reviewer, Orthopedics and Rehabilitation ANAMARIA:[id number] signed by Interface, Senior Core Java Developer In at 10/01/2006 5:02 AM PSTInterf latoya, Senior Core Java Developer In - 10/01/2006 5:02 AM PSTCLINIC DATE: 05/20/2000 CLINIC NAME: [facility] DISCIPLINE: UROLOGY Patient is a 2-wbao-ydm-boy with a history of a lumbosacral lipomeningocele. He is followed here at the [facility]. He is not on intermittent catheterization. He [...] very near future. Dave Malik M.D. SS:[id number] signed by Interface, Senior Core Java Developer In at 10/01/2006 5:02 AM PSTInterf latoya, Senior Core Java Developer In - 10/01/2006 5:02 AM PSTCLINIC DATE: [...] they can bring him back earlier. Js Deng M.D., Ph.D. Surgical Clinical Reviewer, Pediatric Neurosurgery NS / HS [id number] / [id number] / [id number] / [id number] C:05/26/2000/rac documented in this encounter Plan of Treatment Not on filedocumented as of this encounter Visit Diagnoses Not on filedocumented in this encounter
--- OUTSIDE RECORDS SUMMARY | ~2019-10-26 | XMS | Encounter Summary ---
Demographics + + + | Address | [address] | | | [place] [address] | + + + | Home Phone | | + + + | Preferred Language | Unknown | + + + | Marital Status | Single | + + + | Anabaptism Affiliation | CHR | + + + | Race | White | + + + | Ethnic Group | Not or | + + + Author + + + | Author | [facility] | + + + | Organization | [facility] | + + + | Address | Unknown | + + + | Phone | Unavailable | + + + Support + + + + + | Name | Relationship | Address | Phone | + + + + + | Sarahi Orozco | ECON | [address] | | | | | [place] | | | | | [address] | | + + + + + Care Team Providers + +------+ + | Care Shop Blacksmith Name | Role | Phone | + +------+ + PCP | Unavailable | + +------+ + Encounter Details +--------+ + + + + | Date | Type | Department | Care Team | Description | +--------+ + + + + | 11/17/ | Results | [facility] | Robert Johnson MD | | | 2001 | Only | Floor [address] | [address] | | | | | St Mailcode: [facility] | [place], [place] | | | | | [facility] [place], [place] | [address] | | | | | [address] | [phone] | | | | | [phone] | | | +--------+ + + + [...] | + +--------+ + + + | ALLERGEN-SPECIFIC | Routin | 11/17/2001 | | Results for this | | IGE ANTIBODY | e | 3:28 PM | | procedure are in the | | | | PST | | results section. | + +--------+ + + + documented in this encounter Results ALLERGEN-SPECIFIC IGE ANTIBODY (11/17/2001 3:28 PM PST) + + + + + + | Component | Value | Ref Range | Performed | Pathologist | | | | | At | Signature | + + + + + + | IGE SINGLE | Latex | | [facility] | | | ANTIGEN, | | | DEPARTMENT | | | SERUM | | | OF | | | | | | PATHOLOGY | | + + + + + + | ANTIGEN, | 0Comment: | Class | [facility] | | | IGE LEVEL | Antigen IgE Ranges: | | DEPARTMENT | | | | 0 = Absent | | OF | | | | or Undetectable | | PATHOLOGY | | | | 1+ = LOW | | | | | | 2+ = MODERATE | | | | | | 3+ = HIGH | | | | | | 4+ = VERY | | | | | | HIGH 5+ = | | | | | | VERY HIGH | | | | | | 6+ = VERY HIGH | | | | + + + + + + + + | Specimen | + + | | + + + + + + + | Performing | Address | City/State/Zipcode | Phone Number | | Organization | | | | + + + + + | [facility] | [facility] | [place] [address] | | | PATHOLOGY | [address] | | | + + + + + | [facility] | [address] [facility] | [place] [address] | | | PATHOLOGY | [address] | | | + + + + + documented in this encounter Visit Diagnoses Not on filedocumented in this encounter"
--- OUTSIDE RECORDS SUMMARY | ~2019-10-26 | XMS | Encounter Summary ---
Demographics + + + | Address | [address] | | | [place] [address] | + + + | Home Phone [...] [place] | | | | | [address] | | + + + + + Care Team Providers + +------+ + | Care Chief Of Police Name | Role | Phone | + +------+ + | Dajuan Jerome MD | PCP | | + +------+ + Encounter Details +--------+ + + + + | Date | Type | Department | Care Team | Description | +--------+ + + + + | 05/02/ | Transcribed | Allergy Clinic at | Dictation, Other | Transcribed | | 1995 | | [facility] [address] | | | | | | Ashley Acevedo | | | | | | Mailcode: OP34 [facility] | | | | | | Cyril Moon | | | | | | [facility] | | | | | | [place] [address] | | | | | | [phone] | | | +--------+ + + + [...] as of this encounter Progress Notes Interface, [place] Nurse In - 02/10/2007 5:02 AM PDT [address] [address] or May 02, 1996 UMM CHUA MD [address] [place] [place] [address] RE:ADAMA OROZCO MR#:[id number] Dear Umm: It was our pleasure to see Adama back. As you recall, he is a 4-month-old white male infant with a history of a lipomeningocele. He underwent repair by Dr. Shiraz Vance in January of 1996. At that time we evaluated him and he was noted to have a normal ultrasound of the kidneys and bladder. He underwent a voiding cystourethrogram which showed complete emptying of the bladder and no evidence of reflux. We felt at that point in time there was no evidence of involvement of his urinary tract as a consequence of his lipomeningocele. He returns today for further evaluation. Since last seen there has been no urinary tract infections. He has had no unexplained fevers. His parents have noted a voided stream. His diapers have always been wet and there have been no periods of dry diapers between changing. Physical examination today reveals an active in no acute distress. Abdominal exam is unremarkable. Examination of his spine shows a previous midline defect from the closure of his lipomeningocele. He does demonstrate positive anal tone. There is no urine leaking from his phallus. The bladder is not palpable. A renal bladder ultrasound was performed today. His kidneys measured 5.2 centimeters on the right, 5.1 centimeters on the left and were normal, near the 50th percentile for volume. There was no evidence of hydronephrosis noted. The bladder was holding 11 cc's of urine and the bladder wall thickness appeared to be normal. Again at this point in time we do not feel that Adama has had any significant urinary involvement due to his lipomeningocele but this will require continued surveillance. We have asked them to return to see us in approximately 4 to 6 months. Should authorization be necessary it would be appreciated. Thank you again for allowing us to participate in his care. Sincerely, Dave Malik M.D. Production Counter, Urology MICHAEL/krissy documented in this encounter Plan of Treatment Not on filedocumented as of this encounter Visit Diagnoses Not on filedocumented in this encounter"
--- OUTSIDE RECORDS SUMMARY | ~2019-10-26 | XMS | Encounter Summary ---
Demographics + + + | Address | [address] | | | [place] [address] | + + + | Home Phone | | + + + | Preferred Language | Unknown | + + + | Marital Status | Single | + + + | Judaism Affiliation | CHR | + + + [...] [place] | | | | | [address] | | + + + + + Care Team Providers + +------+ + | Care Supervisor Packing Room Name | Role | Phone | + +------+ + | Umm Kaufman MD | PCP | | + +------+ + Encounter Details +--------+ + + + + | Date | Type | Department | Care Team | Description | +--------+ + + + + | 01/29/ | Acquisition Advisor | [facility] | Ngoc Fish PNP | Lipomyelomeningocele | | 2011 | | Floor [address] | [address] | (Primary Dx) | | | | St Mailcode: [facility] | [place], [place] | | | | | [facility] [place], [place] | [address] | | | | | [address] | [phone] | | | | | [phone] | | | +--------+ + + + [...]
--- OUTSIDE RECORDS SUMMARY | ~2019-10-26 | XMS | Encounter Summary ---
Demographics + + + | Address | [address] | | | [place] [address] | + + + | Home Phone [...] [place] | | | | | [address] | | + + + + + Care Team Providers + +------+ + | Care Air Crew Supervisor Name | Role | Phone | + +------+ + | Umm Kaufman MD | PCP | | + +------+ + Reason for Referral Diagnostic Testing (Routine) +--------+--------+ + + + + | Status | Reason | Specialty | Diagnoses / | Referred By | Referred To | | | | | Procedures | Contact | Contact | +--------+--------+ + + + + | Closed | | Radiology | Diagnoses | John, | Rad General | | | | | Neurogenic | RAKAN Fisher | [address] | | | | | bladder, NOS | [address] | [address] | | | | | Neurogenic | Cyril | Mailcode: | | | | | bowel | Maritza Ferreira | [facility] | | | | | Lipoma of | [place], [place] | for Health | | | | | other | [address] | and Healing, | | | | | specified | Phone: | Building [address], | | | | | sites | [phone] | 3rd Floor | | | | | Procedures | Fax: | [place], [place] | | | | | X-RAY | [phone] | [address] | | | | | CYSTOGRAM, | | Phone: | | | | | VOID | | [phone] | | | | | W/HYDRODYN | | Fax: | | | | | W/URETHRCYST | | [phone] | | | | | & INJECTION | | | +--------+--------+ + + + + Reason for Visit Consultation (Routine) + +--------+ + + + + | Status | Reason | Specialty | Diagnoses / | Referred By | Referred To | | | | | Procedures | Contact | Contact | + +--------+ + + + + | Canceled | | [facility] Spina | Diagnoses | [place], | Cdr Spina | | | | Bifida | Spina | Umm Salcedo MD | Bifida [address] | | | | | bifida | PEDS | [facility] | | | | | without | SPECIALISTS | Mailcode: | | | | | mention of | OF [place] | [facility] | | | | | hydrocephalu | [address] | [place], [place] | | | | | s, lumbar | [address] | [address] | | | | | region | [address] | Phone: | | | | | Neurogenic | [place], | [phone] | | | | | bladder, NOS | [place] [address] | Fax: | | | | | Procedures | Phone: | [phone] | | | | | MM | [phone] | | | | | | | Fax: | | | | | | | [phone] | | + +--------+ + + + + Encounter Details +--------+---------+ + + + | Date | Type | Department | Care Team | Description | +--------+---------+ + + + | 12/18/ | Office | Urology -Pediatric | Justice Douglas, | Neurogenic bladder, | | 2010 | Visit | [address] | [address] [facility] | NOS; Neurogenic | | | | Mailcode: CDW[address] | [address] | bowel; Lipoma of | | | | [place] | [place], [place] | other specified | | | | [place], [place] | [address] | sites | | | | [address] | [phone] | | | | | [phone] | | | +--------+---------+ + + + [...] as of this encounter Progress Notes Bhavna Lopez PNP - 12/18/2010 2:02 PM PST Addended by: BHAVNA LOPEZ NP on: 12/18/2010 Modules accepted: Orders ustice Douglas MD - 12/18/2010 1:42 PM PST Pediatric Urology Clinic Note Patient: Pete Orozco [id number] Date of Visit: 12/18/2010 Attending Provider: Naty Douglas MD History of Present Illness: Pete Orozco is a 14 y.o. Male [facility] He come s in today for f/u. He was seen last year. He was working on cathing more frequently. He had a UDS study showing trabelculated bladder with compliance changes. He had increased his cathing scheduled. He states that he is cathing 5 times a day (am, 2 times at school, dinn ertime, and before bed) but his mother indicates that he is only using 2 boxes of catheters. He denies problems cathing and is using a 14 fr cath. He states that he leaks urine betw een caths but he wears diaper for bowel and bladder accidents. He wears pullups. They are w et at night and about 2 times per day. He was given 10 mg of ditropan xl at his last visit. He is being seen with LE changes that are worrisome for tethered cord. He did have a UTI characterized by back pain recently treated with abx with R Flank pain. Past Medical History: Past Medical History Diagnosis [...] the right noted on exam-07-20 Past Surgical History: Past Surgical History Procedure Date Pr release tethered spinal cord,lumbr 02/20/2003 First repair, release of lipomyelomeningocele 01/1996 Right ankle/foot orthopedic surgery 12/2004 DR. LUNA COTTRELL Right ankle/foot complex orthopedic surgery 10/26/07 DR. MERARY AYALA ([facility]) Right ankle/foot orthopedic surgery 06/2009 DR. MERARY AYALA ([facility]) Family History Problem Relation Age of Onset Non-contributory No other known family history of [...] bladder, bowel (596.54, 564.81) . OXYBUTYNIN CHLORIDE ER 10 MG 24 HR TAB Take 1 Tab by mouth once daily. Indications: Neuroge anya Bladder TOPIRAMATE 15 MG SPRINKLE CAP Take 1 Cap by mouth once daily in the evening. Allergies: Allergies Allergen Reactions Amoxicillin Rash Social History: History Social History Narrative Pete and his younger brother, Jared, now live with their father, Yamil, in [place], [place] . Last year he lived with his mother, Nicky, in [place], [place]. His parents in 2008. Pete has an older brother, Steven. Freeman is a 9th-grade student (2309-7949). Review of Systems: General: negative. Physical Exam: General: Well developed, well nourished. BP Readings from Last 1 Encounters: 12/18/2010 120/76 Pulse Readings from Last 1 Encounters: 12/18/2010 84 Resp Readings from Last 1 Encounters: No data found for Resp Wt Readings from Last 1 Encounters: 12/18/2010 56.6 kg (124 lb 12.5 oz) Temp Readings from Last 1 Encounters: No data found for Temp There is no height or weight on file to calculate BMI. Abdomen: Soft, Non-distended, Non-tender. Normal bowel sounds. No palpable masses or stoo l. Results Reviewed: US KIDNEY & BLADDER (no units) Date Value Low High Status 10/02/2010 Final Value: ULTRASOUND OF THE KIDNEYS AND BLADDER, 10/02/10 [...] M.D. STATUS FINAL / Dr. MARIO TOMAS US KIDNEY BILATERAL (no units) Date Value Low High Status 05/20/2000 Final Value: Radiologist 1: MIGUEL KONG M.D. ULTRASOUND KIDNEY BILATERAL: 05/20/00 Dictated 05/20/00 CLINICAL INFORMATION: The patient weighs approximately 16.6 kg. FINDINGS: The right kidneys is normal in echotexture. It measures 6.6 x 3 x 3.8 cm with a volume of 39.3 cc which is close to the 50th percentile using renal volume for weight. There is no hydronephrosis or hydroureter. The left kidney is normal in echotexture. It measures 6.7 x 3.1 x 3.6 cm with a volume of 39 cc which is close to the 50th percentile using renal volume for weight. No hydronephrosis or hydroureter. The bladder was approximately 45 cc. After voiding there was a residual of 39 cc, with a significant post void residual. IMPRESSION: 1. The upper tracts have remained normal. 2. Large post void residual. The patient does not self catheterize at this time. END OF IMPRESSION: US KIDNEY COMPLETE (no units) Date Value Low High Status 03/06/2004 Final Value: Radiologist 1: IVÁN KOVACS-Radiologist 2: IVÁN KOVACS. RENAL ULTRASOUND: 03/06/2004 Dictated 03/06/2004 COMPARISON: 01/04/2003. INDICATION: Patient with spina bifida and neurogenic bladder. FINDINGS: The kidneys are normal in size, shape, and echogenicity. The right kidney measures 7.6 x 3.5 x 3.4 cm with a volume of 48 cc. The left kidney measures 7.5 x 3.3 x 3.8 cm, with a volume of 49 cc. There are no masses or calculi in either kidney. There is no hydronephrosis. The kidneys are normal in size for the patient's weight of 24 kg. The bladder appears trabeculated. The prevoid volume is 65 cc. The post cath volume is less than 1 cc. IMPRESSION: 1. Trabeculated bladder, consistent with neurogenic bladder. 2. Otherwise normal renal ultrasound. END OF IMPRESSION: Impression: NGB Recent UTI Incontinence Possible Tethered cord 1. Neurogenic bladder, NOS (596.54) 2. Neurogenic bowel (564.81) 3. 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 - After UDS with review the results with Dr. Johnson and decide if further burdick for tethered cord needed - May benefit from Chait and possible UT reconstruction. Naty Douglas MD, FAAP, FACS assembler wet wash Pediatric Urology documented in this en counter Plan of Treatment + +---------+--------+ + + | Name | Type | Priori | Associated Diagnoses | Date/Time | | | | ty | | | + +---------+--------+ + + | X-RAY CYSTOGRAM, | Imaging | Routin | Neurogenic | 01/17/2011 1:40 PM | | VOID W/HYDRODYN | | e | bladder, NOS | PST | | W/URETHRCYST & | | | Neurogenic bowel | | | INJECTION | | | Lipoma of other | | | | | | specified sites | | + +---------+--------+ + + + +---------+--------+ + + | Name | Type | Priori | Associated Diagnoses | Order Schedule | | | | ty | | | + +---------+--------+ + + | X-RAY CYSTOGRAM, | Imaging | Routin | Neurogenic | Expected: | | VOID W/HYDRODYN | | e | bladder, NOS | 12/18/2010, Expires: | | W/URETHRCYST & | | | Neurogenic bowel | 01/16/2012 | | INJECTION | | | Lipoma of other | | | | | | specified sites | | + +---------+--------+ + + documented as of this encounter Visit Diagnoses + + | Diagnosis | + + | Neurogenic bladder, NOS | + + | Neurogenic bowel | + + | Lipoma of other specified sites | + + documented in this encounter"
--- OUTSIDE RECORDS SUMMARY | ~2019-10-26 | XMS | Encounter Summary ---
Demographics + + + | Address | [address] | | | [place] [address] | + + + | Home Phone [...] [place] | | | | | [address] | | + + + + + Care Team Providers + +------+ + | Care Security Tech Name | Role | Phone | + +------+ + | Dajuan Jerome MD | PCP | | + +------+ + Encounter Details +--------+ + + + + | Date | Type | Department | Care Team | Description | +--------+ + + + + | 10/02/ | Living Specialist | [facility] | Nereyda Solares PNP | Lipomyelomeningocele | | 2009 | | Floor [address] | [address] | ; Neurogenic | | | | St Mailcode: [facility] | Maritza Ferreira [place], | bladder, NOS; | | | | [facility] [place], [place] | [place] [address] | Neurogenic bowel | | | | [address] | [phone] | | | | | [phone] | | | +--------+ + + + [...]
--- OUTSIDE RECORDS SUMMARY | ~2019-10-26 | XMS | Encounter Summary ---
Demographics + + + | Address | [address] | | | [place] [address] | + + + | Home Phone | | + + + | Preferred Language | Unknown | + + + | Marital Status | Single | + + + | Hoahaoism Affiliation | CHR | + + + [...] [place] | | | | | [address] | | + + + + + Care Team Providers + +------+ + | Care Family Service Assistant Name | Role | Phone | + +------+ + | Dajuan Jerome MD | PCP | | + +------+ + Encounter Details +--------+ + + + + | Date | Type | Department | Care Team | Description | +--------+ + + + + | 05/01/ | Graphics Software Engineer | [facility] | Robert Johnson MD | Spina Bifida without | | 2008 | | Floor [address] | [address] | Mention of | | | | St Mailcode: [facility] | [place], [place] | Hydrocephalus, | | | | [facility] [place] | [address] | Lumbar Region; | | | | [address] | [phone] | Neurogenic Bladder, | | | | [phone] | | NOS | +--------+ + + + + Social [...] on filedocumented as of this encounter Results KIDNEY & BLADDER (06/06/2009 10:16 AM PDT) [...] Chris | | | | | | BOGDAN PENDING | | | | | | [...]
--- OUTSIDE RECORDS SUMMARY | ~2019-10-26 | XMS | Encounter Summary ---
Demographics + + + | Address | [address] | | | [place] [address] | + + + | Home Phone [...] [place] | | | | | [address] | | + + + + + Care Team Providers + +------+ + | Care Talent Acquisition Relationship Manager Name | Role | Phone | + +------+ + | Umm Kaufman MD | PCP | | + +------+ + Reason for Visit + + + | Reason | Comments | + + + | Post Op | cecostomy tube | + + + | Teaching | irrigations | + + + Consultation (Routine) +--------+--------+ [...] | | | | mention of | [place], [place] | | | | | | hydrocephalu | [address] | | | | | | s, lumbar | Phone: | | | | | | region | [phone] | | | | | | Neurogenic | Fax: | | | | | | bladder, NOS | [phone] | | | | | | Neurogenic [...] + + | 09/12/ | Office | Pediatric Surgery | Laurel Leal, | Neurogenic bowel | | 2010 | Visit | at [facility] [address] | RN,RUBENS | (Primary Dx) | | | | [place] Mailcode: | | | | | | [address] | | | | | | [place], [place] | | | | | | [address] | | | | | | [phone] | | | +--------+---------+ + + + [...] documented as of this encounter Progress Notes Laurel Leal RN,HANDTOOLS REPAIRER - 07/28/2011 2:13 PM PDT Pete Orozco is a 15 y.o. male underwent Chait cecostomy tube placement (medium) on 06/26/[address] Loera in conjunction with a bladder augmentation. The patient is here t brandon for fluoro exam to confirm tube placement, removal of bolsters, and complete patient/ca regiver teaching. Gabriel reports he has been doing well at home. Two of the three bolsters h ave fallen out. Pete states that he usually has a BM every two days and that he sometime s has accidents. He states that his parents wanted him to get the cecostomy tube; it was no t his idea. He is here today with his uncle. The patient's underlying conditions include: Patient Active Problem Listd Diagnoses Lipomyelomeningocele Neurogenic Bladder, NOS Neurogenic Bowel Delayed Milestones LIPOMA OF OTHER SPECIFIED SITES Scoliosis Visual Impairment Contracture of Ankle and Foot Joint Monoparesis Pes Cavus, right Decubitus Ulcer of Heel Leg Length Discrepancy, right Change of life Tethering of spinal cord Abnormal gait History of migraine headaches Past Medical History Diagnosis Date Neurogenic bladder [...] right noted on exam-07-20 Lipomyelomeningocele Past Surgical History Procedure Date Pr release tethered spinal cord,lumbr 02/20/2003 First repair, release of lipomyelomeningocele 01/1996 Right ankle/foot orthopedic surgery 12/2004 DR. LUNA COTTRELL Right ankle/foot complex orthopedic surgery 10/26/07 DR. MERARY AYALA ([facility]) Right ankle/foot orthopedic surgery 06/2009 DR. MERARY AYALA ([facility]) Cystoscopy and bladder augmentation (ileocystoplasty with 30 cm of small bowel) 011 Laparoscopic chait cecostomy tube placement 06/26/2011 Allergies Allergen Reactions Amoxicillin Rash Latex Hives and Itching Morphine Hives and Swelling Current Outpatient Prescriptions on File Prior to Visit Medication Sig Dispense Refill CATHETER Misc 1 Units by Intravesical route. Self-Cath Straight Tip 14 fr, 16 inches fo r for intermittent catheterization program to manage neurogenic bladder (596.54). Do this 5 times daily. from 10/02/2010 150 Each 11 DIAPER,BRIEF, ADULT,DISPOSABLE Misc 1 Units by Does not apply route. Please provide pul l-up continence diaper, small men's size for management of neurogenic bladder, bowel (596.54 , 564.81). 192 Units 11 oxybutynin 5 mg Oral Tablet Take 1 Tab by mouth three times daily as needed. oxyCODONE, immediate release, 5 mg Oral Tablet Take 1-2 Tabs by mouth every six hours a s needed for severe pain. 20 Tab 0 polyethylene glycol 17 gram/dose Oral Powder Take 17 g by mouth once daily. 255 g 4 trimethoprim-sulfamethoxazole 80-400 mg Oral Tablet Take 1 Tab by mouth once daily. Beg in taking once you have completed the prescription of ciprofloxacin. 90 Tab 3 Review of Systems: Negative except as noted above Physical Exam: General: Abdomen: soft and rounded. Chait tube is intact to RLQ. One bolster intact. Small amount o f mucoid drainage. No erythema, induration or tenderness Surrounding skin: clear Chait tube: appropriate fit Assessment: 1. Chait tube with appropriate cecal placement, no leaks. (per fluoro exam) 2. Patient teaching today. Pete does not seem to be highly motivated to perform these irrigations. He has agreed to do these every other day. Plan: 1. Remaining bolsters/fasteners removed from around chait tube 2. Begin initial irrigations tonight with 1000 ml saline. 3. Discussed strategies for troubleshooting accidents, with emphasis being on achieving day time/social continence 4. Written handout for irrigation technique, recipe for saline solution, obtaining supplies , and emergency placement of 10 Fr. Lockett catheter reviewed and patient/parents verbalizes u nderstanding of instructions. Opportunity to perform a practice irrigation with enteral feed ing set was provided. 5. Sent home with initial irrigation bag, and 10 fr. Lockett catheter for emergency use in e event of tube dislodgement. 6. Patient is to contact me in 2 weeks to report progress, or sooner if irrigations are jimenez ing longer than 1 hour, if the patient is having accidents, or there are problems with the C hait device/cecostomy site. Otherwise, they will call to schedule a return visit for re-asse ssment of regimen and elective tube change in 12-18 months. documented in thi s encounter Plan of Treatment Not on filedocumented as of this encounter Visit Diagnoses + + | Diagnosis | + + | Neurogenic bowel - Primary | + + documented in this encounter"
--- OUTSIDE RECORDS SUMMARY | ~2019-10-26 | XMS | Encounter Summary ---
Demographics + + + | Address | [address] | | | [place] [address] | + + + | Home Phone | | + + + | Preferred Language | Unknown | + + + | Marital Status | Single | + + + | Anabaptist Affiliation | CHR | + + + [...] [place] | | | | | [address] | | + + + + + Care Team Providers + +------+ + | Care Microsoft Infrastructure Consultant Name | Role | Phone | + +------+ + PCP | Unavailable | + +------+ + Encounter Details +--------+ + + + + | Date | Type | Department | Care Team | Description | +--------+ + + + + | 01/16/ | Results | [facility] 7th | Dave Malik MD | | | 1998 | Only | Floor [address] | [address] | | | | | St Mailcode: [facility] | Maritza Ferreira [place], | | | | | [facility] [place], [place] | [place] [address] | | | | | [address] | [phone] | | | | | [phone] | | | +--------+ + + + [...] | US KIDNEY BILATERAL | Routin | 01/16/1999 | | Results for this | | | e | 12:06 PM | | procedure are in the | | | | PST | | results section. | + +--------+ + + + | US BLADDER | Routin | 01/16/1999 | | Results for this | | | e | 12:06 PM | | procedure are in the | | | | PST | | results section. | + +--------+ + + + documented in this encounter Results US KIDNEY BILATERAL (01/16/1999 12:06 PM PST) + + + + + + | Component | Value | Ref Range | Performed | Pathologist | | | | | At | Signature | + + + + + + | US KIDNEY | Radiologist 1: KRISTI, | | | | | BILATERAL | ANTIONETTE Overton, | | | | | | MorrisULTRASOUND KIDNEY | | | | | | BILATERAL AND ULTRASOUND | | | | | | URINARY BLADDER POST | | | | | | VOIDRETENTION: 01/16/99 | | | | | | at 1206 hours | | | | | | Dictated 01/16/99 | | | | | | COMPARISON: Comparison | | | | | | is made with prior study | | | | | | of 03/21/98. FINDINGS: | | | | | | Both kidneys have a | | | | | | normal echotexture and | | | | | | configuration.The | | | | | | kidneys show no evidence | | | | | | of cysts or calculi. | | | | | | The right | | | | | | kidneymeasures 6.3 x 3 x | | | | | | 3 cm with a volume of | | | | | | 30 cc. This is | | | | | | slightlyunder the 50th | | | | | | percentile for the | | | | | | child's weight of 15 kg. | | | | | | The leftkidney | | | | | | measures 6.8 x 2.9 x 3.2 | | | | | | cm with a volume of 33 | | | | | | cc. This isalso just | | | | | | under the 50th | | | | | | percentile. There is 3 | | | | | | mm of pelviectasis | | | | | | ofthe left kidney with | | | | | | no calyceal dilatation. | | | | | | The urinary | | | | | | bladdermeasures 3.9 x | | | | | | 3.2 x 4.4 cm with a | | | | | | volume of 29 cc. There | | | | | | is no wallthickening, | | | | | | trabeculation, or | | | | | | ureterocele. No debris | | | | | | is seen. Thechild | | | | | | attempted to void but | | | | | | was unable. The post | | | | | | void bladder size | | | | | | isessentially unchanged. | | | | | | IMPRESSION: 1. | | | | | | Normal bilateral | | | | | | kidneys with a trace of | | | | | | left-sided | | | | | | hydronephrosis. 2. The | | | | | | child was unable to | | | | | | empty his bladder and | | | | | | had a slightlyincreased | | | | | | volume following | | | | | | attempted voiding. | | | | | | END [...] | + +---------+ + + US BLADDER (01/16/1999 12:06 PM PST) + + + + + + | Component | Value | Ref Range | Performed | Pathologist | | | | | At | Signature | + + + + + + | US BLADDER | Radiologist 1: KRISTI, | | | | | | JAMES AKBAR, | | | | | | ADAMA Escobar | | | | | | | | | | | | [birth year] THE | | | | | | FINDINGS AND | | | | | | INTERPRETATIONS OF | | | | | | THE:US BLADDER, ACC# | | | | | | [id number], DONE ON | | | | | | 16-JAN-99 AT 12:06HAVE | | | | | | BEEN REPORTED ON THE:US | | | | | | KIDNEYS, ACC# [id number], | | | | | | DONE ON 16-JAN-99 AT | | | | | | 12:06. | | | | + + + [...]
--- OUTSIDE RECORDS SUMMARY | ~2019-10-26 | XMS | Encounter Summary ---
Demographics + + + | Address | [address] | | | [place] [address] | + + + | Home Phone [...] + + + | Author | [facility] | + + + | Organization | [facility] | + + + | Address | Unknown | + + + | Phone | Unavailable | + + + Support + + + + + | Name | Relationship | Address | Phone | + + + + + | Sarahi Orozco | ECON | [address] | | | | | [place] | | | | | [address] | | + + + + + Care Team Providers + +------+ + | Care Consulting Database Administrator Name | Role | Phone | + +------+ + | Umm Kaufman MD | PCP | | + +------+ + Encounter Details +--------+ + + + + | Date | Type | Department | Care Team | Description | +--------+ + + + + | 07/01/ | Package Sorter | Pediatric Surgery | Sridevi Fonseca, | Neurogenic bowel | | 2010 | | at [address] | RN [address] | (Primary Dx) | | | | [place] Mailcode: | [address] | | | | | CDJulian Castillo | [facility] [place] | | | | | [place], [place] | [address] | | | | | [address] | | | | | | [phone] | | | +--------+ + + + [...] + +--------+ + + + | X-RAY ABD TUBE OR | Routin | 07/28/2011 | | Results for this | | CATH WILY FLUORO W | e | 2:38 PM | | procedure are in the | | CONTRAST | | PDT | | results section. | + +--------+ + + + documented in this encounter Results X-RAY ABD TUBE OR CATH EVAL FLUORO W CONTRAST (07/28/2011 2:38 PM PDT) + + + + + + | Component | Value | Ref Range | Performed | Pathologist | | | | | At | Signature | + + + + + + | ABD TUBE OR | CECOSTOMY TUBE | | | | | CATH EVAL | EVALUATION INDICATION: | | | | | FLUORO | Status post cecostomy | | | | | | tube placement. | | | | | | Evaluate prior touse. | | | | | | COMPARISON: None | | | | | | FINDINGS:Under | | | | | | fluoroscopic guidance, | | | | | | water-soluble contrast | | | | | | was injected viathe | | | | | | existing cecostomy tube. | | | | | | Contrast fills the | | | | | | cecum and | | | | | | ascendingcolon. Stool | | | | | | is outlined by the | | | | | | contrast. There are no | | | | | | signs ofextravasation of | | | | | | contrast to indicate | | | | | | leak. The patient | | | | | | tolerated theprocedure | | | | | | well. Total fluoroscopy | | | | | | time was 3 seconds, | | | | | | although due to the use | | | | | | ofpulsed fluoroscopy the | | | | | | actual exposure time | | | | | | was significantly | | | | | | less.Dose area product | | | | | | is 6.4 microGray meters | | | | | | squared. Fluoroscopy | | | | | | wasperformed by | | | | | | Abdulaziz, under the | | | | | | direct supervision of | | | | | | . | | | | | | IMPRESSION:Cecostomy | | | | | | tube appears well | | | | | | positioned without signs | | | | | | of extravasationof | | | | | | contrast to suggest | | | | | | leak. By my electronic | | | | | | signature below, I, | | | | | | Ena Gloria MD, was | | | | | | presentfor the entire | | | | | | procedure as described | | | | | | in this note. END OF | | | | | | IMPRESSION Attending | | | | | | Radiologists: Ena | | | | | | Morris GloriaAuthor: | | | | | | Juan Pablo Cintron, | | | | | | MMaryann I have personally | | | | | | viewed this | | | | | | procedure/exam, reviewed | | | | | | this report,and made | | | | | | changes to it where | | | | | | appropriate. | | | | | | Final/Electronically | | | | | | signed / Ena | | | | | | Faizan 07/28/2011 15:17 | | | | | | PM | | | | + + [...]
--- OUTSIDE RECORDS SUMMARY | ~2019-10-26 | XMS | Encounter Summary ---
Demographics + + + | Address | [address] | | | [place] [address] | + + + | Home Phone | | + + + | Preferred Language | Unknown | + + + | Marital Status | Single | + + + | Adventist Affiliation | CHR | + + + [...] [place] | | | | | [address] | | + + + + + Care Team Providers + +------+ + | Care Banquet Coordinator Name | Role | Phone | + +------+ + | Dajuan Jerome MD | PCP | | + +------+ + Encounter Details +--------+ + + + + | Date | Type | Department | Care Team | Description | +--------+ + + + + | 05/02/ | Transcribed | [facility] at | Dictation, Other | Transcribed | | 1995 | | [facility] [address] | | | | | | Ashley Acevedo | | | | | | Mailcode: OP34 [facility] | | | | | | [address] | | | | | | [facility] | | | | | | [place] [address] | | | | | | [phone] | | | +--------+ + + + [...] as of this encounter Progress Notes Interface, Mud Cleaner Operator In - 02/10/2007 5:02 AM PDT [address] [address] or May 02, 1996 UMM CHUA MD [address] [place] [address] RE:ADAMA OROZCO MR#:[id number] Dear Umm: It was [...] in his care. Sincerely, Dave Malik M.D. Marketing Technology Specialist, Urology MICHAEL/krissy documented in this encounter Plan of Treatment Not on filedocumented as of this encounter Visit Diagnoses Not on filedocumented in this encounter"
--- OUTSIDE RECORDS SUMMARY | ~2019-10-26 | XMS | Encounter Summary ---
Demographics + + + | Address | [address] | | | [place] [address] | + + + | Home Phone | | + + + | Preferred Language | Unknown | + + + | Marital Status | Single | + + + | Restoration Affiliation | CHR | + + + [...] [place] | | | | | [address] | | + + + + + Care Team Providers + +------+ + | Care Dirt Contractor Name | Role | Phone | + +------+ + PCP | Unavailable | + +------+ + Encounter Details +--------+ + + + + | Date | Type | Department | Care Team | Description | +--------+ + + + + | 02/20/ | Procedure - | | Documentation, | OP REPORT-TEACHING | | 2002 | | | Teaching Physician | | | | Transcribed | | [...] | + +--------+ + + + | TEACHING PHYSICIAN | | 02/20/2003 | | | + +--------+ + + + documented in this encounter Visit Diagnoses Not on filedocumented in this encounter"
--- OUTSIDE RECORDS SUMMARY | ~2019-10-26 | XMS | Encounter Summary ---
Demographics + + + | Address | [address] | | | [place] [address] | + + + | Home Phone | | + + + | Preferred Language | Unknown | + + + | Marital Status | Single | + + + | Congregational Affiliation | CHR | + + + | Race | White | + + + | Ethnic Group | Not or | + + + Author + + + | Author | [facility] | + + + | Organization | [facility] | + + + | Address | Unknown | + + + | Phone | Unavailable | + + + Support + + + + + | Name | Relationship | Address | Phone | + + + + + | Sarahi Orozco | ECON | [address] | | | | | [place] | | | | | [address] | | + + + + + Care Team Providers + +------+ + | Care Agent Telegrapher Name | Role | Phone | + [...] | | | | hydrocephalu | [address] | [place], [place] | | | | | s, lumbar | [place], | [address] | | | | | region | [place] [address] | Phone: | | | | | Neurogenic | Phone: | [phone] | | | | | bladder, NOS | [phone] | Fax: | | | | | Procedures | Fax: | [phone] | | | | | [place] | [phone] | | | | | | US,RETROPERI | | | | | | | T, | | | | | | | B-SCAN/REAL | | | | | | | TIME,COMPLET | | | | | | | E NC | | | | | | | [...] | 06/06/ | Office | [facility] | Robert Johnson MD | Lipomyelomeningocele | | 2008 | Visit | Floor [address] | [address] | ; Neurogenic | | | | St Mailcode: [facility] | [place], [place] | Bladder, NOS; | | | | [facility], [place] | [address] | Neurogenic Bowel; | | | | [address] | [phone] | Pes Cavus, right; | | | | [phone] | | Leg Length | | | | | | Inequality; | | | | | | Monoparesis (HCC); | | | | | | Decubitus Ulcer of | | | | | | Heel | +--------+---------+ + + + Social History [...] + + + | Blood Pressure | 118/68 | 06/06/2009 11:03 AM | | | | | PDT | | + + + + + | Pulse | 84 | 06/06/2009 11:03 AM | | | | | PDT [...] | 48.2 kg (106 lb 4.2 | 06/06/2009 11:03 AM | | | | oz) | PDT | | + + + + + | Height | 162.4 cm (5' 3.94") | 06/06/2009 11:03 AM | | | | | PDT | | + + + + + | Body Mass Index | 18.28 | 06/06/2009 11:03 AM | | | | | PDT | | + + + + + documented in this encounter Patient Instructions Patient Instructions Robert Johnson MD - 06/06/2009 4:32 PM PDTIMPRESSIONS: 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 -Return in 3 months for Pediatrics & Urology, to review urinary continence and implement mo re bowel continence. -We will address the bowel continence then. Will try regular timed evacuation, and added satya vallejo. Today we discussed cecostomy. -I have referred him to [facility] to Dr. Cantrell next week June 13 @ 2 p.m. -Meanwhile, I have wrapped the foot decubitus with 2x2 and bandage role, and recommended ch anging dressing daily. -Next full team evaluation and monitoring of this complication in one year. -I spent 60 minutes in direct encounter with this patient, >50% counseling and/or coordinat ion of care. 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 Primary Provider: Dajuan Jerome M.D., [facility], [address], [place], [place] [address]. HPI: Things have been stable over the last year. He is scheduled to have wedge surgery on the hammertoes on the right foot; he has chronic and now draining decubitus pressure sores on the same foot. Otherwise, things have been stable. 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 A years ago, the description repor t was of 2 healing wounds "under the first and fifth metatarsal heads, they are both almost fully healed, both he and his father alleged they were much more significant earlier." Thes e are persistent and unchanged again this year. He had untethering surgery for the second time in 2002. Neurogenic Bladder: He is providing his own clean intermittent catheterization. No UTIs i n several years. When he is traveling, he uses a sterile catheter each time. He leaks betw een catheterization and overnight. Previously, he had tried oxybutynin, but did not tolerate the side effects (perhaps he is a better candidate for the Oxytrol patch). Neurogenic Bowel: Essentially incontinent. MiraLax was prescribed 2 years ago, but he was not happy with results because it induced loose BMs. Recommendation was made to use a smal ler dose, but this was never carried out. He has never really ever had an effective contine nce program of any kind. Today, I strongly recommended 2 important complements of a successful bowel contents progra m: Sitting on the commode every day at the same time for regular evacuation; and the use of fiber added to the diet. I also feel that over the skilled nursing, he is a good candidate for cecostomy. However at this time, that is a lot to ask of this 13-year-old. Orthopedics: He previously was measured as having a 2 cm leg-length discrepancy (shorter o n the right). Today, I only got about 1 cm differential on the lower segment. He has had foot surgery 2 times in the past, and is scheduled again next month for the 3rd, for wedge shaping and pinning of the hammer toe. Skin: Decubitus pressure sores, chronic, as above. After bandaging, I referred him back t jose g [facility] for an appointment next week to consider how this potentially impacts his pendin g surgery. He has a right AFO which he claims to wear except when he is wearing shorts. When he plays baseball, he wears an elastic anklet. Education: Cognitive testing at school using the WISC-IV: Verbal comprehension 75, workin g memory 65, processing speed 80, and full scale 70. He is in [employer] Education [employer] in the resource room. Today, he had a testing by [employer]. Visual motor integration standard score at 7-years 6- geovanni h levels (with delays in writing and spelling); visual perception and motor coordination are within average range for age. [place]: Pete provided much of his own history today. In particular, he was able to provide history about bowel and bladder care. By his description of his imaginary ways o f bowel continence, he demonstrates understanding of anatomy and some sense of bowel functio n. By his lack of urinary tract infections, he demonstrates good technique for clean interm ittent catheterization. Review of Systems: Except as above, otherwise negative for all systems. Physical Examination: Weight 48.2 kg (50 percentile). Height 162.4 cm (60 percentile). B NJ 40 percentile. Head circumference 55.0 cm (55 percentile). Blood pressure 118/68, pulse 84. General Appearance: Pubescent male; obvious right monoparesis with thin rig ht calf and hypoplastic right foot, significantly smaller than the left. Alert, oriented, c ooperative, age appropriate, and demonstrating understanding of his condition; much of the q uestioning was directed directly to him. HEENT: Normocephalic. TMs have normal landmarks and mobility bilaterally. EOMS are full and symmetrical, without nystagmus or strabismus; f undi are benign with normal cupping bilaterally. No significant oral lesions, tongue and uv xiao are midline, and the palate lifts symmetrically. Neck: Supple. Chest and Back: There is a well-healed midline surgical scar over the lumbosacral region without hirsutism, disco loration, drainage, or paresthesia; there is a lipomatosis lump above the right buttock. Shayy ngs: Clear to auscultation. Heart: Regular rhythm and physiologic sounds. Abdomen: No o rganomegaly, masses, tenderness or guarding. Genitalia: Normal male, Masoud stage III, cir cumcised; testes descended bilaterally without hernia or hydrocele. Pulses are normal. Lym phatics are normal. Skin: The only significant lesions are the described chronic calluses/ decubitus lesions to the metatarsal heads on the first and fifth toes to the right; clear dr lee out of the thick callus formation under the fifth toe. Orthopedics: Full function d own to and including the right knee and totally on the left lower extremity; sufficient supp ort but moderate weakness over the right ankle; right pes cavus deformity with hammertoes. Neurological: Cranial nerves 2 through 12 are intact. Normal function in the upper extremi ties; normal function in the left lower extremity; on the right lower extremity, there are D TRs present at the knees, absent at the ankle. Plantar and dorsiflexion present at the righ t ankle but with some weakness. 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 (delayed; writing/spelling difficulties) -Visual Perceptual @ 11 yr. 5 month (average) -Motor coordination @ 12 year 2 months (average) RECOMMENDATIONS: -Continue Clean Intermittent Catheterization (CIC) -Add Oxytrol patch 3.9 mg per 72 hours, as per Urology. -Return in 3 months for Pediatrics & Urology, to review urinary continence and implement mo re bowel continence. -We will address the bowel continence then. Will try regular timed evacuation, and added satya vallejo. Today we discussed cecostomy. -I have referred him to [facility] to Dr. Cantrell next week June 13 @ 2 p.m. -Meanwhile, I have wrapped the foot decubitus with 2x2 and bandage role, and recommended ch anging dressing daily. -Next full team evaluation and monitoring of this complication in one year. -I spent 60 minutes in direct encounter with this patient, >50% counseling and/or coordinat ion of care. Robert Johnson MD docu mented in this encounter Plan of Treatment Not on filedocumented as of this encounter Procedures + +--------+ + + + | Procedure Name | Priori | Date/Time | Associated Diagnosis | Comments | | | ty | | | | + +--------+ + + + | UA 10 DIP POC | Routin | 06/06/2009 | | Results for this | | | e | 3:32 PM | | procedure are in the | | | | PDT | | results section. | + +--------+ + + + documented in this encounter Results UA DIPSTICK ONLY, POC (06/06/2009 3:32 PM PDT) + + + + + [...] + + + + | APPEARANCE | sl. cloudy | | [facility] | | | (UA DIP), | | | OF CARE | | | POC | | | TESTS | | + + + + + + | LEUKOCYTES | mod | Negative | [facility] | | | (UA DIP), | | | OF CARE | | | POC | | | TESTS | | + + + + + + | NITRITES | neg [...] (UA | trace | Negative to | [facility] | | | DIP), POC | | Trace mg/dL | OF CARE | | | | | | TESTS | | + + + + + + | PH (UA | 6.5 | 5 - 8 | [facility] | [...] + + + + | SPECIFIC | 1.025 | 1.005 - 1.03 | [facility] | | | GRAVITY (UA | | | OF CARE | | | DIP), POC | | | TESTS | | + + + + + + | KETONES (UA | neg | Negative mg/dL | [facility] [...] (UA | neg | Negative to | [facility] | | [...] DRAPER | [address] | [place], [place] | | | [facility] | [address] | [address] | | | TESTS | | | | + + + + + | [facility] | 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
--- OUTSIDE RECORDS SUMMARY | ~2019-10-26 | XMS | Encounter Summary ---
Demographics + + + | Address | [address] | | | [place] [address] | + + + | Home Phone [...] Author + + + | Author | [facility] | + + + | Organization | [facility] | + + + | Address | Unknown | + + + | Phone | Unavailable | + + + Support + + + + + | Name | Relationship | Address | Phone | + + + + + | Sarahi Orozco | ECON | [address] | | | | | [place] | | | | | [address] | | + + + + + Care Team Providers + +------+ + | Care Folder Operator Name | Role | Phone | + +------+ + | Umm Kaufman MD | PCP | | + +------+ + Encounter Details +--------+ + + + + | Date | Type | Department | Care Team | Description | +--------+ + + + + | 01/17/ | Document-Sc | UNKNOWN DEPARTMENT | Unknown . | | | 2010 | anned | [address] | | | | | | [address] | | | | | | [place] | | | | | | [address] | | | +--------+ + + + [...] + + | DIAGNOSTIC STUDIES | | 01/17/2011 | | Results for this | | | | 12:00 AM | | procedure are in the | | | | PST | | results section. | + +--------+ + + + documented in this encounter Results DIAGNOSTIC STUDIES (01/17/2011 12:00 AM PST) + + + | Narrative | Performed At | + + + | | | | | | + + + + + | Procedure Note | + + | Dario Medina - 12/28/2012 9:01 AM PST | + + documented in this encounter Visit Diagnoses Not on filedocumented in this encounter"
--- OUTSIDE RECORDS SUMMARY | ~2019-10-26 | XMS | Encounter Summary ---
Demographics + + + | Address | [address] | | | [place] [address] | + + + | Home Phone | | + + + | Preferred Language | Unknown | + + + | Marital Status | Single | + + + | Roman Catholic Affiliation | CHR | + + + [...] [place] | | | | | [address] | | + + + + + Care Team Providers + +------+ + | Care Director Of Accounts Receivable Name | Role | Phone | + [...] [address] | | | | | | [place], [place] | | | | | | [address] | | | +--------+ + + + [...]
--- OUTSIDE RECORDS SUMMARY | ~2019-10-26 | XMS | Encounter Summary ---
Demographics + + + | Address | [address] | | | [place] [address] | + + + | Home Phone | | + + + | Preferred Language | Unknown | + + + | Marital Status | Single | + + + | Moravian Affiliation | CHR | + + + | Race | White | + + + | Ethnic Group | Not or | + + + Author + + + | Author | [facility] | + + + | Organization | [facility] | + + + | Address | Unknown | + + + | Phone | Unavailable | + + + Support + + + + + | Name | Relationship | Address | Phone | + + + + + | Sarahi Orozco | ECON | [address] | | | | | [place] | | | | | [address] | | + + + + + Care Team Providers + +------+ + | Care Powder Worker Tnt Name | Role | Phone | + +------+ + | Dajuan Jerome MD | PCP | | + +------+ + Encounter Details +--------+ + + + + | Date | Type | Department | Care Team | Description | +--------+ + + + + | 01/17/ | Transcribed | Allergy Clinic at | Dictation, Other | Transcribed | | 1995 | | [facility] [address] | | | | | | Ashley Acevedo | | | | | | Mailcode: [id number] [facility] | | | | | | [place] Moon | | | | | | [facility] | | | | | | [place] [address] | | | | | | [phone] | | | +--------+ + + + [...] as of this encounter Progress Notes Interface, Help Desk Rep In - 02/15/2007 8:49 AM PDT [address] [address] [place] DIVISION OF PEDIATRIC NEUROLOGY [address] [place] [id number] , FAX: JANUARY 18, 1996 GEOFF NG MD [address] [place] [address] [place] [address] RE:ADAMA OROZCO MR#:[id number] DEAR DOCTOR HERNANDEZ: THANK YOU VERY MUCH FOR SENDING ADAMA AND HIS FAMILY DOWN TO SEE ME REGARDING ADAMA'S LIPOMYELOMENINGOCELE. HISTORY OF THE PRESENT ILLNESS: ADAMA IS ONLY ONE MONTH OLD. HE WAS THE PRODUCT OF AN UNREMARKABLE FULL-TERM . LABOR WAS INDUCED. THE DELIVERY WAS VAGINAL AND ADAMA HAD A CEPHALIC PRESENTATION. HE HAS BEEN WELL, BUT A SUBCUTANEOUS MASS OVER OF LUMBOSACRAL REGION WAS NOTED AT THE TIME OF . THE FAMILY BELIEVES THAT THIS MASS HAS BECOME SLIGHTLY LARGER, EXTENDING TO THE RIGHT SIDE OF THE LUMBOSACRAL JUNCTION. THE PARENTS SAY THE ADAMA URINATES WITH A STREAM. DEVELOPMENTAL HISTORY: ABOVE. PAST MEDICAL HISTORY: NEGATIVE. ADAMA HAS HAD NO OPERATIONS. HE TAKES NO MEDICATIONS ON A REGULAR BASIS. HE HAS NO RECOGNIZED ALLERGIES. SOCIAL HISTORY: ADAMA IS HIS FATHER'S FIRST CHILD BUT IS HIS MOTHER'S SECOND CHILD. EXAMINATION: THE WEIGHT IS 3.2 KG. ADAMA IS HEALTHY APPEARING AND WELL CARED FOR. THE HEAD HAS A NORMAL SHAPE. THE HEAD CIRCUMFERENCE IS 37 CM. THE ANTERIOR FONTANEL IS SLACK. TONE IS NORMAL ON THE UPPER LIMBS. THE JAZMÍN REFLEX IS SYMMETRICAL. THE PALMAR GRASP REFLEXES ARE SYMMETRICAL. THERE IS NO DEFORMITY OR ASYMMETRY IN THE LOWER LIMBS. THE PLANTAR GRASP REFLEX, HOWEVER, IS MUCH BETTER DEVELOPED IN THE LEFT FOOT THAN IN THE RIGHT. THE PATELLA REFLEXES ARE SYMMETRICAL. I HAD DIFFICULTY DETERMINING IF THE ACHILLES REFLEXES WERE PRESENT. TONE SEEMS NORMAL AND SPONTANEOUS KICKING MOVEMENTS SEEM NORMAL. THERE IS GOOD PERINEAL TONE. THE ANAL WINK IS PRESENT BILATERALLY. THE SACRUM FEELS NORMAL. AT THE LUMBOSACRAL JUNCTION THERE IS A HEMISPHERIC SUBCUTANEOUS MASS, PERHAPS 4 CM IN GREATEST DIAMETER, WITH AN OVERLYING STRAWBERRY NEVUS. THE MASS IS NOT TENDER. THERE MAY BE SLIGHTLY MORE FULLNESS ON THE RIGHT SIDE OF THE SPINE THAN ON THE LEFT. IMPRESSION: LIPOMYELOMENINGOCELE. PLAN: I EXPLAINED MY DIAGNOSIS TO ADAMA'S PARENTS. WE DISCUSSED IN BRIEF TERMS THE NATURAL HISTORY OF THIS CONDITION AND I RECOMMENDED SURGICAL CORRECTION IN INFANCY. ADAMA IS NOW BOOKED FOR AN MR SCAN OF THE THORACIC AND LUMBOSACRAL SPINE ON FEBRUARY 08, 1996. HE WILL UNDERGO REPAIR OF HIS LIPOMYELOMENINGOCELE ON THE FOLLOWING DAY. THANK YOU AGAIN FOR SENDING ADAMA DOWN TO SEE ME. I AM SURE THAT WE SHALL SPEAK ABOUT HIM SOON. VERY BEST REGARDS, NAVA CROUCH JR., Ludwig., F.A.A.P. BEAM SEALER, NEUROSURGERY AND PEDIATRICS Linda/WESLEY P CC: documented in this encounter Plan of Treatment Not on filedocumented as of this encounter Visit Diagnoses Not on filedocumented in this encounter"
--- OUTSIDE RECORDS SUMMARY | ~2019-10-26 | XMS | Encounter Summary ---
Demographics + + + | Address | [address] | | | [place] [address] | + + + | Home Phone [...] Author + + + | Author | [facility] | + + + | Organization | [facility] | + + + | Address | Unknown | + + + | Phone | Unavailable | + + + Support + + + + + | Name | Relationship | Address | Phone | + + + + + | Sarahi Orozco | ECON | [address] | | | | | [place] | | | | | [address] | | + + + + + Care Team Providers + +------+ + | Care Shipping Weigher Name | Role | Phone | + +------+ + PCP | Unavailable | + +------+ + Encounter Details +--------+ + + + + | Date | Type | Department | Care Team | Description | +--------+ + + + + | 06/26/ | Results | [facility] at [facility] 7th | [place], | | | 2004 | Only | [address] | MD Reyna [address] | | | | St Mailcode: [facility] | Melissa [facility] | | | | | [facility] [place], [place] | [place], [place] | | | | | [address] | [address] | | | | | [phone] | | | +--------+ + + + [...] | X-RAY SCOLI SPINE | Routin | 07/02/2005 | | Results for this | | ENTIRE 36 1 VIEW | e | 10:03 AM | | procedure are in the | | | | PDT | | results section. | + +--------+ + + + documented in this encounter Results SCOLI SPINE ENTIRE 36 1 VIEW (07/02/2005 10:03 AM PDT) + + + + + + | Component | Value | Ref Range | Performed | Pathologist | | | | | At | Signature | + + + + + + | [facility]I [facility] | Radiologist 1: ROSMERY, | | | | | ENTIRE 36 | Morris ALTAMIRANOEXAM: | | | | | 1 VIEW | Standing thoracic spine | | | | | | AP 07/02/05 Comparison: | | | | | | 01/04/03 History: Spina | | | | | | bifida Findings: There | | | | | | is lumbosacral spinal | | | | | | dysraphism. There is | | | | | | adecrease of mild | | | | | | thoracolumbar | | | | | | dextroscoliosis, | | | | | | measured from | | | | | | thesuperior endplate of | | | | | | T3 through the inferior | | | | | | endplate of the L1.This | | | | | | is unchanged compared | | | | | | with prior exam. | | | | + + + + + + + + | Specimen | + + | | + + + +---------+ + + | Performing | Address | City/State/Zipcode | Phone Number | | Organization | | | | + +---------+ + + | [facility] DEPARTMENT OF | | | | | RADIOLOGY | | | | + +---------+ + + documented in this encounter Visit Diagnoses Not on filedocumented in this encounter"
--- OUTSIDE RECORDS SUMMARY | ~2019-10-26 | XMS | Encounter Summary ---
Demographics + + + | Address | [address] | | | [place] [address] | + + + | Home Phone [...] Author + + + | Author | [facility] | + + + | Organization | [facility] | + + + | Address | Unknown | + + + | Phone | Unavailable | + + + Support + + + + + | Name | Relationship | Address | Phone | + + + + + | Sarahi Orozco | ECON | [address] | | | | | [place] | | | | | [address] | | + + + + + Care Team Providers + +------+ + | Care Electroplating Worker Name | Role | Phone | + +------+ + | Umm Kaufman MD | PCP | | + +------+ + Encounter Details +--------+ + + + + | Date | Type | Department | Care Team | Description | +--------+ + + + + | 12/18/ | Orders Only | [facility] at [facility] 7th | Lj Burgos, | | | 2010 | | Floor [address] | | | | | St Mailcode: [facility] | | | | | | [facility] [place] | | | | | | [address] | | | | | | [phone] | | | +--------+ + + + [...]
--- OUTSIDE RECORDS SUMMARY | ~2019-10-26 | XMS | Encounter Summary ---
Demographics + + + | Address | [address] | | | [place] [address] | + + + | Home Phone [...] + + + | Author | [facility] | + + + | Organization | [facility] | + + + | Address | Unknown | + + + | Phone | Unavailable | + + + Support + + + + + | Name | Relationship | Address | Phone | + + + + + | Sarahi Orozco | ECON | [address] | | | | | [place] | | | | | [address] | | + + + + + Care Team Providers + +------+ + | Care Press Technician Name | Role | Phone | + +------+ + | No Pcp Per Patient | PCP | Unavailable | + +------+ + Encounter Details +--------+ + + + + | Date | Type | Department | Care Team | Description | +--------+ + + + + | 04/21/ | Ancillary | Registration [id number] | | | | 2006 | Registratio | CHRISTINA [facility] | | | | | [address] | [address] Mailcode: [id number] | | | | | | [place], [place] | | | | | | [address] | | | | | | [phone] | | | +--------+ + + + [...]
--- OUTSIDE RECORDS SUMMARY | ~2019-10-26 | XMS | Clinical Summary ---
Demographics + + + | Address | [address] | | | [place] [address] | + + + | Home Phone | | + + + | Preferred Language | Unknown | + + + | Marital Status | Unknown | + + + | Zoroastrian Affiliation | Unknown | + + + | Race | Unknown | + + + | Ethnic Group | Unknown | + + + Author + + + | Author | [facility] (Historical as of | | | 07-02-19) | + + + | Organization | [facility] (Historical as of | | | 07-02-19) | + + + | Address | Unknown | + + + | Phone | Unavailable | + + + Support + + +---------+ + | Name | Relationship | Address | Phone | + + +---------+ + | Andressa Cosme | [place] | Unknown | | + + +---------+ + | Yamil Orozco | ECON | Unknown | | + + +---------+ + Care Team Providers + +------+ + | Care Television Antenna Installer Name | Role | Phone | + +------+ + | Brooke Dickson | PP | | + +------+ + Allergies + [...] + + + + | Penicillins | Red Man Syndrome | Medium | 12/19/19 | | | | | | 19 | | + + + + + + Current Medications + + +--------+---------+------+------+-------+ | Prescription | Sig. | Disp. | Refills | Star | End | Statu | | | | | | t | Date | s | | | | | | Date | | | + + +--------+---------+------+------+-------+ | | Take 1 tablet by | 30 | 0 | 02/0 | | Activ | | oxyCODONE-acetaminop | mouth every 6 (six) | tablet | | 4/20 | | e | | hen (PERCOCET) 5-325 | hours as needed for | | | 19 | | | | MG per tablet | Pain. | | | | | | + + +--------+---------+------+------+-------+ Active Problems + + + | Problem | Noted Date | + + + | Dental abscess | 2018 | + + + | Sepsis (HCC) | 2018 | + + + Social History + +-------+ +--------+------+ | Tobacco Use | Types | Packs/Day | Years | Date | | | | | Used | | + +-------+ +--------+------+ | Current Every Day | | 0.5 | 12 | | | Smoker | | | | | + +-------+ +--------+------+ + +---+---+---+ | Smokeless Tobacco: | | | | | Never Used | | | | + +---+---+---+ + + | Tobacco Cessation: Ready to Quit: No; Counseling Given: Yes | + + + + +---------+ + | Alcohol Use | Drinks/We | oz/Week | Comments | | | ek | | | + + +---------+ + | Yes | | | | + + +---------+ + + + + | Sex Assigned at | Date Recorded | | | | + + + | Not on file | | + + + Last Filed Vital Signs + + + + | Vital Sign | Reading | Time Taken | + + + + | Blood Pressure | 149/70 | 12/20/2018 11:21 AM PST | + + + + | Pulse | 92 | 12/20/2018 11:21 AM PST | + + + + | Temperature | 36.7 C (98 F) | 12/20/2018 11:21 AM PST | + + + + | Respiratory Rate | 16 | 12/20/2018 11:21 AM PST | + + + + | Oxygen Saturation | 98% | 12/20/2018 11:21 AM PST | + + + + | Inhaled Oxygen | - | - | | Concentration | | | + + + + | Weight | 66.1 kg (145 lb 12.8 | 12/20/2018 5:33 AM PST | | | oz) | | + + + + | Height | 172.7 cm (5' 8") | 2018 1:36 AM PST | + + + + | Body Mass Index | 22.17 | 12/20/2018 5:33 AM PST | + + + + Plan of Treatment + + + + + | Health Maintenance | Due Date | Last Done | Comments | + + + + + | Vaccine: Influenza | | 11/23/2018, 08/27/2017, | | | (#1) | 9 | 11/21/2010 | | + + + + + | Vaccine: | | 12/12/2012, 11/29/2008, | | | Dtap/Tdap/Td (5 - | 3 | 10/20/2000, Additional history | | | Td) | | exists | | + + + + + | Vaccine: | Completed | 11/23/2018 | | | Pneumococcal 19-64 | | | | | (PPSV23 only) Medium | | | | | Risk | | | | + + + + + Results Not on filefrom Last 3 Months Insurance + +--------+ +------+-------+ + | Payer | Benefi | Subscriber | Type | Phone | Address | | | t Plan | ID | | | | | | / | | | | | | | Group | | | | | + +--------+ +------+-------+ + | MEDICAID | [place] | [id number] | | | [address] | | | [place] | | | | [place] | | | [place] | | | | [address] | | | [employer] | | | | | + +--------+ +------+-------+ + + +--------+ +--------+ + + | Guarantor Name | Accoun | Relation to | Date | Phone | Billing Address | | | t Type | Patient | of | | | | | | | | | | + +--------+ +--------+ + + | ADAMA OROZCO | Person | Self [birth year] | Home: | [address] | | | al/Fam | | 1995 | [phone] [place] [address] | | | karolyn | | | [phone] | | + +--------+ +--------+ + +
--- OUTSIDE RECORDS SUMMARY | ~2019-10-26 | XMS | Encounter Summary ---
Demographics + + + | Address | [address] | | | [place] [address] | + + + | Home Phone [...] [place] | | | | | [address] | | + + + + + Care Team Providers + +------+ + | Care Senior Geologist Name | Role | Phone | + +------+ + | Dajuan Jerome MD | PCP | | + +------+ + Encounter Details +--------+ + + + + | Date | Type | Department | Care Team | Description | +--------+ + + + + | 05/04/ | Office | [facility] | Report, [...] as of this encounter Progress Notes Interface, [employer] Sprayer In - 07/14/2006 3:11 AM PDTCLINIC DATE: 05/04/2002 [facility]INIC NAME: [facility] DISCIPLINE: ORTHOPEDICS DIAGNOSIS: Lipomeningocele. HISTORY: This is a 6-year-old male who returns for follow-up of scoliosis films, which were done in November, as well as follow-up with urology. Scoliosis films done last visit demonstrate a 12 degree right convex lumbar curve. This appears to be primarily due to asymmetry in the sacral area. He does appear to have mild pelvic obliquity. Hips appear to be reduced and developing normally on this film. Parents report that Pete is complaining a little bit more of bilateral leg pain. This has been an ongoing complaint but seems to be more frequent lately. It seems to be worse after activities. He points to both knees as the site of his pain. Examination of his gait is remarkable today for what appears to be mostly dynamic supination of the right foot such that he is striking on the lateral border of the foot. This is causing more intoeing on the right than what he has previously demonstrated. Left alignment appears good. Parents report that he has always had some turning in of the right foot. 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 He also appears to have a strong dynamic component from over-pull of the anterior tibialis. Strength testing reveals weakness of the peroneals on the right, along with lesser toe extensors. Standing, he tends to curl his toes. He has difficulty rocking back on his heel on the right and has difficulty lifting his toes from the floor. Other than mild metatarsus adductus, there is no foot deformity in his foot. He has good ankle range of motion. I cannot elicit any clonus or spasticity in the anterior tibialis. Specific manual muscle testing will be done today also by Robinson Hutson, and I refer you to his note for further details. IMPRESSION: Mild scoliosis, not currently a concern. He may have some minor changes in his neuromotor examination and minor changes in his gait. RECOMMENDATIONS: The plan is to recheck him in three or four months, including manual muscle testing. Reyna Buckley M.D. FERNANDO/[id number] signed by Fredo, [employer] Sprayer In at 07/14/2006 3:11 AM Braak huddleston, [employer] Sprayer In - 07/14/2006 3:11 AM PDTCLINIC DATE: 05/04/2002 CLINIC NAME: [facility] DISCIPLINE: PEDIATRIC UROLOGY SUBJECTIVE: Pete is a 6-year-old male with history of neurogenic bladder, secondary to lumbosacral lipomeningocele. It was repaired in January 1996. He has neurogenic bladder and has had only UTI in his life, which occurred as an infant. He presently catheterizes every four hours with a #8-Albanian catheter. He does this himself without parents' involvement. He does wear a Depends, and the parents report changing three to four times a day. They state that he is only in the Depends for fecal incontinence, which happens once or twice a day, but he does have some dampness between catheterizations previously. At his visit on November 17, 2001, he was noted to have new mild grade II left hydronephrosis, and he was started on Ditropan 5 mg twice a day. He is back today for follow-up. Parents report no problems with catheterization, no interim infections. They do not seem to be too involved with his cathing at all, just state that he does it, although they do not observe him doing it. They state that his PullUps are often damp, but never wet. He is wet, however, overnight. At today's clinic, the physical therapist and orthopedic surgeon had concerns about new lower extremity weakness and gait abnormality and planned to perform an MRI, due to concerns about possible tethered cord. STUDIES: Renal ultrasound today shows right kidney 6.9, left kidney 7.1 cm; right kidney volume 60 cc, left, 40 cc. There is no evidence of hydronephrosis. Bladder is trabeculated with mild wall thickening, which is stable, compared to his prior ultrasounds. His pre-catheter volume was 97-cc post-catheter volume was 1-cc. ASSESSMENT: 1. Neurogenic bladder. 2. Neurogenic bowel. 3. Possible tethered cord. 4. Resolution of previously noted left hydronephrosis. PLAN: 1. Continue Ditropan 5 mg twice a day. 2. Continue intermittent catheterization q.4.h. 3. Tethered cord workup per Orthopedics and Neurosurgery. I do not believe urodynamics at this point will change the recommendations, nor will it change the management of his bladder, so I do not believe this is necessary at this time. 4. If he is otherwise doing well, we will plan to see him back in six months with another ultrasound and serum chemistries. Danny Dhlaiwal M.D. Pediatric Urology [id number] CC: [place] [id number] signed by Fredo, [employer] Sprayer In at 07/14/2006 3:11 AM Barak huddleston, [employer] Sprayer In - 07/14/2006 3:11 AM PDTCLINIC DATE: 05/04/2002 CLINIC NAME: [facility] DISCIPLINE: PHYSICAL THERAPY Pete attended clinic today accompanied by his parents and his brother. He is a boy of 6 years 4 months of age who has lumbosacral lipomeningocele. He has a history of slight functional weakness, affecting his right lower extremity, but this was difficult to specify with manual muscle testing, and at his last clinic visit, he appeared to have 5/5 strength through both lower extremities. At that time he displayed symmetric, good functional use of both lower limbs through a wide variety of dynamic upright weight-bearing activities. Today, I saw Pete with particular attention to whether he is losing strength in his right lower extremity. Physical examination today revealed that he has 4/5 strength in his long toe extensors but with particular weakness of these serving the lateral three toes; in these the strength appeared was less than 3/5. He also showed some weakness of his peroneal muscles on the right side that I assessed as 4/5. Elsewhere, he has 5/5 strength in all of his ankle and foot musculature. He appeared to display 5/5 strength in all other musculature through both lower extremities, though he himself reports that his left knee extensors are stronger than his right knee extensors. He in fact reports that his left lower limb is much stronger than his right lower limb. I could nor replicate this with manual muscle testing or by functional activities. 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 He displays slight toeing in on that side, but this too appears unchanged. Pete's gait was characterized by dynamic supination, evidently overpull of his tibialis anterior at the expense of his weak toe extensors and peroneal muscles. He was able to walk on tiptoes and on his heels, although he showed diminished toe rise with his lateral toes when doing so on the right side. He was able to walk on the lateral borders of his feet, and he was able to walk, but with difficulty, on the medial borders of his feet. When tiptoeing, he did not display descent of his heel on either side. He was able to run, gallop, and execute a partially organized skipping. He was able to hop sequentially on both feet, and he was able to hop sequentially on each foot independently, but on the right foot, at most, he did three hops. On the left foot, he was able to hop indefinitely. Pete displayed diminished deep tendon reflexes at the right quadriceps and the right tendoachilles, compared to the left side. His toes were downgoing bilaterally. Pete then is a boy of 6 years 4 months of age, who is displaying either new or more readily demonstrated weakness distally in his right lower limb. I did form the impression, however, that this is new weakness, and suggested that we re-evaluate him in the near future to see if there is any change in the status. I suggested reevaluation in two months. At that time, I will specifically re-evaluate the status of his strength in his right lower limb. ULI Zamora Physical Therapist [id number] C: 05/09/02 () [id number] signed by Interface, [employer] Spr[employer] In at 07/14/2006 3:11 AM PDTdoc umented in this encounter Plan of Treatment Not on filedocumented as of this encounter Visit Diagnoses Not on filedocumented in this encounter"
--- OUTSIDE RECORDS SUMMARY | ~2019-10-26 | XMS | Encounter Summary ---
Demographics + + + | Address | [address] | | | [place] [address] | + + + | Home Phone [...] + + + | Author | [facility] | + + + | Organization | [facility] | + + + | Address | Unknown | + + + | Phone | Unavailable | + + + Support + + + + + | Name | Relationship | Address | Phone | + + + + + | Sarahi Orozco | ECON | [address] | | | | | [place] | | | | | [address] | | + + + + + Care Team Providers + +------+ + | Care Radio Station Audio Engineer Name | Role | Phone | + +------+ + | Dajuan Jerome MD | PCP | | + +------+ + Encounter Details +--------+ + + + + | Date | Type | Department | Care Team | Description | +--------+ + + + + | 10/02/ | Inspector And Adjuster [employer] Head | [facility] 7th | Nereyda Solares PNP | Lipomyelomeningocele | | 2009 | | [address] | [address] | ; Neurogenic | | | | St Mailcode: [facility] | Maritza Ferreira [place], | bladder, NOS; | | | | [facility] [place], [place] | [place] [address] | Neurogenic bowel | | | | [address] | [phone] | | | | | [phone] | | | +--------+ + + + [...]
--- OUTSIDE RECORDS SUMMARY | ~2019-10-26 | XMS | Encounter Summary ---
Demographics + + + | Address | [address] | | | [place] [address] | + + + | Home Phone [...] Author + + + | Author | [facility] | + + + | Organization | [facility] | + + + | Address | Unknown | + + + | Phone | Unavailable | + + + Support + + + + + | Name | Relationship | Address | Phone | + + + + + | Sarahi Orozco | ECON | [address] | | | | | [place] | | | | | [address] | | + + + + + Care Team Providers + +------+ + | Care Cupola Operator Name | Role | Phone | + +------+ + | Dajuan Jerome MD | PCP | | + +------+ + Reason for Visit + + + | Reason | Comments | + + + | Annual health | | | maintenance | | | examination | | + + + Consultation (Routine) [...] | | | | hydrocephalu | [address] | [place], [place] | | | | | s, lumbar | [place], | [address] | | | | | region | [place] [address] | Phone: | | | | | Neurogenic | Phone: | [phone] | | | | | bladder, NOS | [phone] | Fax: | | | | | Procedures | Fax: | [phone] | | | | | [place] | [phone] | | | | | | [place],RETROPERI [...] | 04/21/ | Office | CDR at [facility] | Cy Hutson | Monoparesis ([facility]); | | 2006 | Visit | Floor [address] | Jr., PT [address] [facility] | Equinus Deformity of | | | | St Mailcode: [facility] | [address] | Foot, Acquired; | | | | [facility], [place] | [place] [address] | Spina Bifida without | | | | [address] | | Mention of | | | | [phone] | | Hydrocephalus, | | | | | | Lumbar Region; | | | | | | Lipoma of Other | | | | | | Specified Sites | +--------+---------+ + + + Social History [...] encounter Progress Notes Cy Hutson Jr. - 04/21/2007 12:17 PM PDTClinic Name: [facility] Discipline: Physical Therapy. Date of : [address] [facility] Physician: DAJUAN JEROME MD Pete attended clinic today, accompanied by his mother. 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 In December 2004 , he underwent a right plantar fasciotomy with stripping of the intrinsic musculature and an anterior tibialis tendon transferred to the dorsum of the midfoot along with lengthening of flexor hallucis longus and the flexor d igitorum longus. Gabriel has an Ankle-Foot Orthosis (AFO) post surgery, but it has been deemd poorly fitting and is undergoing modification. Mother told me it was bebeing done by the marine insurance claim examiner at [facility] although he is not yet enrolled there . Gabriel and his mother reported a main concern being the open wound on his right foot, there for several months. Upon bearing weight this causes him pain that he describes as five on a Zero to ten scale. He walks on tip tos as an antalgic maneuver. This wound is full thicknes s under a surface callus and has developed an abscess at least once that required lancing an d draining by his primary care physician. Otherwise Pete reports that he is doing well. He reports that the AFO, when in place hel ps his walking by keeping him better aligned. The AFO is reportedly hinged and was causing h im discomfort. He reported that that he feels steadier and more stable with the device on. Physical examination of Pete physical exam was n unremarkable for any change elsewhere. At his right foot he has a stiff foot with plantarflexion limited to neutral when his knee is in flexion and stiff in 3 degrees of plantarflexion when his knee is extended. He has tig htness of the dorsal muscles and the anterior compartment muscles as well, yielding an exagg erated metatarsal pad and concentrating his weight bearing there. This apparently contribute d to the development of his sore and interferes with healing. Elsewhere his range of motion and alignment are good. I measured a 2 cm leg length discrepancy: ASIS to heel (1 cm., ASIS to medial malleolus) with the right leg being shorter. The discepancy apears to be in the ti bial com-ponent. During physical exam I did not detect any long tract signs, change in underlying resting mu scle tone, or re-emergence of primitive relfeses that might suggest neurogenic change. His s trength is intact and normal in his left lower limb, and proximally in his right lower limb. Pete is undergoing progressive tightness of his right foot and ankle that reflects muscl e imbalance follwing his orthopedic surgery in 2004. I suggested enrolling in [facility] for orthotic managtement, orthopedic baseline ev aluation of his spine, and orthopedic re-evaluation of his right foot. I discussed my findi ngs and recommendations with Gabriel and his mother, and subsequently with Robert Johnson MD, Developmental Rubbing Bed Operator and [employer] of the Spina Bifida Program Otherwise Pete appears to be stable in his structure and function. Because of the risk f or adverse change I will plan to evaluate him again at the next scheduled full team appointm ent with the Sp[facility]ifida Program. IDALMIS HUTSON PT Physical Therapist [facility] documented in this e ncounter Plan of Treatment + + +--------+ + + | Name | Type | Priori | Associated Diagnoses | Order Schedule | | | | ty | | | + + +--------+ + + | [facility] | Procedures | Routin | Monoparesis (HCC) | Ordered: 04/21/2007 | | EVALUATION | | e | Equinus Deformity | | | | | | of Foot, Acquired | | | | | | Spina Bifida without | | | | | | Mention of | | | | | | Hydrocephalus, | | | | | | Lumbar Region | | | | | | Lipoma of Other | | | | | | Specified Sites | | + + +--------+ + + documented as of this encounter Visit Diagnoses + + | Diagnosis | + + | Monoparesis (HCC) Unspecified monoplegia | + + | Equinus deformity of foot, acquired | + + | Spina bifida without mention of hydrocephalus, lumbar region | + + | Lipoma of other specified sites | + + documented in this encounter"
--- OUTSIDE RECORDS SUMMARY | ~2019-10-26 | XMS | Encounter Summary ---
Demographics + + + | Address | [address] | | | [place] [address] | + + + | Home Phone | | + + + | Preferred Language | Unknown | + + + | Marital Status | Single | + + + | Jain Affiliation | CHR | + + + [...] [place] | | | | | [address] | | + + + + + Care Team Providers + +------+ + | Care Vice President Of Talent Acquisition Name | Role | Phone | + +------+ + | No Pcp Per Patient | PCP | Unavailable | + +------+ + Encounter Details +--------+ + + + + | Date | Type | Department | Care Team | Description | +--------+ + + + + | 11/04/ | Ancillary | LAB CORE [address] | | | | 2012 | Orders | [address] | | | | | | [place], [place] | | | | | | [address] | | | | | | [phone] | | | +--------+ + + + [...] + +--------+ + + + | CBC (HEMOGRAM) ONLY | Routin | 11/04/2013 | Spina bifida | Results for this | | | e | 7:20 PM | without mention of | procedure are in the | | | | PST | hydrocephalus, | results section. | | | | | lumbar region | | | | | | [ICD-9-CM] | | + +--------+ + + + | UA, DIPSTICK ONLY | Routin | 11/04/2013 | Spina bifida | Results for this | | | e | 7:20 PM | without mention of | procedure are in the | | | | PST | hydrocephalus, | results section. | | | | | lumbar region | | | | | | [ICD-9-CM] | | + +--------+ + + + | URINE, MICROSCOPIC | Routin | 11/04/2013 | Spina bifida | Results for this | | EXAM | e | 7:20 PM | without mention of | procedure are in the | | | | PST | hydrocephalus, | results section. | | | | | lumbar region | | | | | | [ICD-9-CM] | | + +--------+ + + + | C-REACTIVE PROTEIN | Routin | 11/04/2013 | Spina bifida | Results for this | | | e | 7:20 PM | without mention of | procedure are in the | | | | PST | hydrocephalus, | results section. | | | | | lumbar region | | | | | | [ICD-9-CM] | | + +--------+ + + + | CBC ONLY | Routin | 11/04/2013 | Spina bifida | Results for this | | | e | 7:20 PM | without mention of | procedure are in the | | | | PST | hydrocephalus, | results section. | | | | | lumbar region | | | | | | [ICD-9-CM] | | + +--------+ + + + | SEDIMENTATION RATE | Routin | 11/04/2013 | Spina bifida | Results for this | | | e | 7:20 PM | without mention of | procedure are in the | | | | PST | hydrocephalus, | results section. | | | | | lumbar region | | | | | | [ICD-9-CM] | | + +--------+ + + + | CULTURE, URINE BACTI | Routin | 11/04/2013 | Spina bifida | Results for this | | | e | 7:20 PM | without mention of | procedure are in the | | | | PST | hydrocephalus, | results section. | | | | | lumbar region | | | | | | [ICD-9-CM] | | + +--------+ + + + documented in this encounter Results CBC (HEMOGRAM) ONLY (11/04/2013 7:20 PM PST) + +-------+ + + + | Component | Value | Ref Range | Performed | Pathologist | | | | | At | Signature | + +-------+ + + + | WHITE CELL | 9.22 | 4.90 - 15.50 | [facility] | | | COUNT | | K/cu mm | LABORATORY | | | | | | SERVICES, | | | | | | CORE | | + +-------+ + + + | RED CELL | 4.75 | 4.50 - 5.30 | [facility] | | | COUNT | | M/cu mm | LABORATORY | | | | | | SERVICES, | | | | | | CORE | | + +-------+ + + + | HEMOGLOBIN | 14.3 | 13.0 - 16.0 | [facility] | | | | | g/dL | LABORATORY | | | | | | SERVICES, | | | | | | CORE | | + +-------+ + + + | HEMATOCRIT | 42.3 | 37.0 - 49.0 % | [facility] | | | | | | LABORATORY | | | | | | SERVICES, | | | | | | CORE | | + +-------+ + + + | MCV | 89.1 | 80.0 - 96.0 fL | [facility] | | | | | | LABORATORY | | | | | | SERVICES, | | | | | | CORE | | + +-------+ + + + | MCHC | 33.8 | 33.0 - 35.5 | [facility] | | | | | g/dL | LABORATORY | | | | | | SERVICES, | | | | | | CORE | | + +-------+ + + + | RDW SD | 37.1 | 35.1 - 46.3 fL | [facility] | | | | | | LABORATORY | | | | | | SERVICES, | | | | | | CORE | | + +-------+ + + + | PLATELET | 228 | 150 - 400 K/cu | [facility] | | | COUNT | | mm | LABORATORY | | | | | | SERVICES, | | | | | | CORE | | + +-------+ + + + | MPV | 11.5 | 9.7 - 12.3 fL | [facility] | | | | | | LABORATORY | | | | | | SERVICES, | | | | | | CORE | | + +-------+ + + + | NRBC% | 0.0 | 0.0 - 0.3 % | [facility] | | | | | | LABORATORY | | | | | | SERVICES, | | | | | | CORE | | + +-------+ + + + | NRBC# | 0.00 | 0.00 - 0.02 | [facility] | | | | | K/cu mm | LABORATORY | | | | | | SERVICES, | | | | | | CORE | | + +-------+ + + + + + | Specimen | + + | Blood - Blood | + + + + + | Narrative | Performed At | + + + | New methodology and reference ranges for some CBC/Differential | [facility] | | analytes in effect on 06/03/13. | LABORATORY | | | [address] | + + + + + + + + | Performing | Address | City/State/Zipcode | Phone Number | | Organization | | | | + + + + + | [facility] | [address] | [place] [address] | | | SERVICES, STEV[place] | [address] | | | + + + + + CULTURE, URINE BACTI (11/04/2013 7:20 PM PST) + + + + + + | Component | Value | Ref Range | Performed | Pathologist | | | | | At | Signature | + + + + + + | SPECIMEN | Urine | | [facility] | | | TYPE | | | [facility] - | | | | | | [place] | | + + + + + + | SOURCE BODY | Urine | | [facility] - | | | SITE | | | [facility] - | | | | | | [place] | | + + + + + + | CULTURE | C UrineSource: Urine | | [facility] - | | | RESULT | | | [facility] - | | | | Final CULTURE | | [place] | | | | RESULT:>100,000 cfu/ml | | | | | | Escherichia coli | | | | | | >100,000 cfu/ml | | | | | | Providencia species | | | | | | ORGANISM:............... | | | | | | ....Escherichia | | | | | | coliAmpicillin | | | | | | | | | | | | SCefazolin | | | | | | | | | | | | SCiprofloxacin | | | | | | SGentamicin | | | | | | | | | | | | SNitrofurantoin | | | | | | | | | | | | SPiperacillin/Tazobact | | | | | | am STobramycin | | | | | | | | | | | | STetracycline | | | | | | | | | | | | STrimethoprim/Sulfa | | | | | | S | | | | | | ORGANISM:............... | | | | | | ....Providencia | | | | | | speciesAmikacin | | | | | | | | | | | | SAmpicillin | | | | | | | | | | | | RCefazolin | | | | | | | | | | | | RCeftriaxone | | | | | | | | | | | | SCiprofloxacin | | | | | | SGentamicin | | | | | | | | | | | | RNitrofurantoin | | | | | | | | | | | | RPiperacillin/Tazobact | | | | | | am STobramycin | | | | | | | | | | | | RTetracycline | | | | | | | | | | | | RTrimethoprim/Sulfa | | | | | | S | | | | + + + + + + + + | Specimen | + + | Urine - Urine | + + + + + + + | Performing | Address | City/State/Zipcode | Phone Number | | Organization | | | | + + + + + | [facility] | [address] | [place] [address] | | | [place] | | | | + + + + + C-REACT PRTN (FOR INFLAMMATION) (11/04/2013 7:20 PM PST) + +-------+ + + + | Component | Value | Ref Range | Performed | Pathologist | | | | | At | Signature | + +-------+ + + + | C-REACTIVE | <0.5 | <=0.8 mg/dL | [facility] | | | PROTEIN | | | [facility] - | | | | | | [place] | | + +-------+ + + + + + | Specimen | + + | Blood - Blood | + + + + + + + | Performing | Address | City/State/Zipcode | Phone Number | | Organization | | | | + + + + + | [facility] | [address] | [place] [address] | | | [place] | | | | + + + + + SEDIMENTATION RATE (11/04/2013 7:20 PM PST) + +-------+ + + + | Component | Value | Ref Range | Performed | Pathologist | | | | | At | Signature | + +-------+ + + + | SEDIMENTATI | 3 | 0 - 15 mm/hr | [facility] | | | ON RATE | | | LABORATORY | | | | | | SERVICES, | | | | | | CORE | | + +-------+ + + + + + | Specimen | + + | Blood - Blood | + + + + + + + | Performing | Address | City/State/Zipcode | Phone Number | | Organization | | | | + + + + + | [facility] | [address] | [place] [address] | | | SERVICES, CORE | [address] | | | + + + + + UA, TIFFANYSTRAZ ONLY (11/04/2013 7:20 PM PST) + + + + + + | Component | Value | Ref Range | Performed | Pathologist | | | | | At | Signature | + + + + + + | COLOR(UR) | Nicky | | [facility] | | | | | | LABORATORY | | | | | | SERVICES, | | | | | | CORE | | + + + + + + | APPEARANCE | Mod. Cloudy | | [facility] | | | | | | LABORATORY | | | | | | SERVICES, | | | | | | CORE | | + + + + + + | GLUCOSE(UR) | Negative | Negative, 50.0 | [facility] | | | | | mg/dL | LABORATORY | | | | | | SERVICES, | | | | | | CORE | | + + + + + + | PROTEIN(LAB | 30.0 | Negative, 30.0 | [facility] | | | ) | | mg/dL | LABORATORY | | | | | | SERVICES, | | | | | | CORE | | + + + + + + | BILIRUBIN | Negative | Negative | [facility] | | | | | | LABORATORY | | | | | | SERVICES, | | | | | | CORE | | + + + + + + | UROBILINOGE | <2.0 | <2.0 mg/dL | [facility] | | | N | | | LABORATORY | | | | | | SERVICES, | | | | | | CORE | | + + + + + + | PH(UR) | 9.0 (H) | 5.0 - 8.0 | [facility] | | | | | | LABORATORY | | | | | | SERVICES, | | | | | | CORE | | + + + + + + | BLOOD | Small (A) | Negative | [facility] | | | | | | LABORATORY | | | | | | SERVICES, | | | | | | CORE | | + + + + + + | KETONES | Negative | Negative mg/dL | [facility] | | | | | | LABORATORY | | | | | | SERVICES, | | | | | | CORE | | + + + + + + | NITRITES | Negative | Negative | [facility] | | | | | | LABORATORY | | | | | | SERVICES, | | | | | | CORE | | + + + + + + | LEUKOCYTE | Large (A) | Negative | [facility] | | | ESTERASE | | | LABORATORY | | | | | | SERVICES, | | | | | | CORE | | + + + + + + | SPECIFIC | 1.011 | 1.005 - 1.030 | [facility] | | | GRAVITY | | | LABORATORY | | | | | | SERVICES, | | | | | | CORE | | + + + + + + + + | Specimen | + + | Urine - Urine | + + + + + + + | Performing | Address | City/State/Zipcode | Phone Number | | Organization | | | | + + + + + | [facility] | [address] | [place] [address] | | | SERVICES, CORE | [address] | | | + + + + + URINE, MICROSCOPIC EXAM (11/04/2013 7:20 PM PST) + +---------+ + + + | Component | Value | Ref Range | Performed | Pathologist | | | | | At | Signature | + +---------+ + + + | RED CELLS | 9 (H) | 0 - 3 /hpf | [facility] | | | | | | LABORATORY | | | | | | SERVICES, | | | | | | CORE | | + +---------+ + + + | WHITE CELLS | 75 (H) | 0 - 5 /hpf | [facility] | | | | | | LABORATORY | | | | | | SERVICES, | | | | | | CORE | | + +---------+ + + + | BACTERIA | Few (A) | None /hpf | [facility] | | | | | | LABORATORY | | | | | | SERVICES, | | | | | | CORE | | + +---------+ + + + | YEAST (LAB) | None | None /hpf | [facility] | | | | | | LABORATORY | | | | | | SERVICES, | | | | | | CORE | | + +---------+ + + + | SQUAMOUS | None | None /hpf | [facility] | | | EPITHELIAL | | | LABORATORY | | | | | | SERVICES, | | | | | | CORE | | + +---------+ + + + | MUCOUS | None | None /hpf | [facility] | | | | | | LABORATORY | | | | | | SERVICES, | | | | | | CORE | | + +---------+ + + + | TRICHOMONAS | None | None /hpf | [facility] | | | | | | LABORATORY | | | | | | SERVICES, | | | | | | CORE | | + +---------+ + + + | NON-SQUAMOU | None | None /hpf | [facility] | | | S EPITH | | | LABORATORY | | | | | | SERVICES, | | | | | | CORE | | + +---------+ + + + | HYALINE | 0 | 0 - 2 /lpf | [facility] | | | CASTS | | | LABORATORY | | | | | | SERVICES, | | | | | | CORE | | + +---------+ + + + | GRANULAR | 0 | 0 - 2 /lpf | [facility] | | | CASTS | | | LABORATORY | | | | | | SERVICES, | | | | | | CORE | | + +---------+ + + + | CELLULAR | 0 | <=0 /lpf | [facility] | | | CASTS | | | LABORATORY | | | | | | SERVICES, | | | | | | CORE | | + +---------+ + + + | TRIPLE P04 | Few (A) | None /hpf | [facility] | | | CRYSTALS | | | LABORATORY | | | | | | SERVICES, | | | | | | CORE | | + +---------+ + + + | CALCIUM | None | None /hpf | [facility] | | | OXALATE | | | LABORATORY | | | OLIVER | | | SERVICES, | | | | | | CORE | | + +---------+ + + + | URIC ACID | None | None /hpf | [facility] | | | CRYSTALS | | | LABORATORY | | | | | | SERVICES, | | | | | | CORE | | + +---------+ + + + | AMORPHOUS | None | None /hpf | [facility] | | | CRYSTALS | | | LABORATORY | | | | | | SERVICES, | | | | | | CORE | | + +---------+ + + + + + | Specimen | + + | Urine - Urine | + + + + + + + | Performing | Address | City/State/Zipcode | Phone Number | | Organization | | | | + + + + + | [facility] | [address] | [place] [address] | | | SERVICES, CORE | [address] | | | + + + + + documented in this encounter Visit Diagnoses + + | Diagnosis | + + | 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
--- OUTSIDE RECORDS SUMMARY | ~2019-10-26 | XMS | Encounter Summary ---
Demographics + + + | Address | [address] | | | [place] [address] | + + + | Home Phone | | + + + | Preferred Language | Unknown | + + + | Marital Status | Single | + + + | Restorationism Affiliation | CHR | + + + [...] [place] | | | | | [address] | | + + + + + Care Team Providers + +------+ + | Care Natural Resources Professor Name | Role | Phone | [...] Clinic | | | | | | [facility], [address] | | | | | | [place], [place] | | | | | | [address] | | | | | | [phone] | | | +--------+ + + + [...] of this encounter Progress Notes Interface, Senior Clinical Research Scientist In - 02/10/2007 5:02 AM PDT CLINIC DATE: 05/02/96 PEDIATRIC NEUROLOGY CLINIC SUBJECTIVE: The patient is a dptx-gpyex-heo 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 Resident, Urology Dave Malik M.D. Hhas, Urology [facility]/catalina documented in this encounter Plan of Treatment Not on filedocumented as of this encounter Visit Diagnoses Not on filedocumented in this encounter"
--- OUTSIDE RECORDS SUMMARY | ~2019-10-26 | XMS | Encounter Summary ---
Demographics + + + | Address | [address] | | | [place] [address] | + + + | Home Phone [...] [place] | | | | | [address] | | + + + + + Care Team Providers + +------+ + | Care Marketing Clerk Name | Role | Phone | [...] | Floor [address] | Neli, DIVISION COMMANDER [address] | Mention of | | | | St Mailcode: [facility] | [address] | Hydrocephalus, | | | | [facility] [place] | [address] [place], [place] | Lumbar Region | | | | [address] | [address] | (Primary Dx) | | | | [phone] | | | +--------+---------+ + + + [...] Notes Neli Robison - 04/21/2007 3:43 PM [facility] Social Work Note Pete, 11 years [...] has health insurance through her employ er ([employer] ). Nicky hasn't inquired whether the insurance will cover the cos t of catheters, I suggested that she do so. Nicky is not sure how well this new insurance p casey will cover specialty medical care, she has a $40 co-pay for today's visit. It will be i mportant for social work to monitor this issue with this family. Pete lives in [place] (15 miles outside of [place]) with his parents and 9 year old brother Jared. Pete has a 16 year old brother Dave who is currently living with an aunt in [place]. Pete's dad works outside of the family home driving a milk truck, Nicky works for [employer]. Pete reports that his favorite leisure activities involves playing w ith friends and riding bikes. 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 There are no recommendations beyond the above suggestions about health insurance. Social w ork remains available as needed. Neli Robison [facility] Ph. [phone] signed by Neli Robison at 04/21/2007 3:43 PM PDTdocume nted in this encounter Plan of Treatment Not on filedocumented as of this encounter Visit Diagnoses + + | Diagnosis | + + | Spina bifida without mention of hydrocephalus, lumbar region - Primary | + + documented in this encounter"
--- OUTSIDE RECORDS SUMMARY | ~2019-10-26 | XMS | Encounter Summary ---
Demographics + + + | Address | [address] | | | [place] [address] | + + + | Home Phone [...] [place] | | | | | [address] | | + + + + + Care Team Providers + +------+ + | Care Combination Man Name | Role | Phone | + [...] Rd | | | | | | [place], [place] | | | | | | [address] | | | | | | [phone] | | | +--------+ + + + [...] | + + + + + | [facility] | [address] | [place] [address] | | | SERVICES, CORE | [address] [...] [facility] | [address] | [place] [address] | | | SERVICES, CORE | [address] [...] | + + + + + | [facility] | [address] | [place] [address] | | | [address] | [address] | | | + + + + + documented in this encounter Visit Diagnoses + + | Diagnosis | + + | Other postoperative infection | + + documented in this encounter"
--- OUTSIDE RECORDS SUMMARY | ~2019-10-26 | XMS | Encounter Summary ---
Demographics + + + | Address | [address] | | | [place] [address] | + + + | Home Phone [...] [place] | | | | | [address] | | + + + + + Care Team Providers + +------+ + | Care Senior Executive Compensation Analyst Name | Role | Phone | [...] | | | | | hydrocephalu | [place] | | | | | s, lumbar | [address] | [address] | | | | | region | Phone: | Phone: | | | | | Neurogenic | [phone] | [phone] | | | | | bladder, NOS | Fax: | Fax: | | | | | Neurogenic | [phone] | [phone] | | | | | bowel | [...] | | | | | | | [place] COMPLEX | | | | | | | | | | | | | | CYSTOMETROGR | | | | | | | AM [place] | | | | | | | ELECTRO-UROF | | | | | | | LOWMETRY, | | | | | | | FIRST [place] | | | | | | | ANAL/URINARY | | | | | | | MUSCLE | | | | | | | STUDY WI | | | | | | | INTRAABDOMIN | | | | | | | AL PRESSURE | | | | | | | TEST WI | | | | | | | URETHROCYSTO | | | | | | | GRAM+VOIDING | | | | | | | WI | | | | | | | INJECTION | | | | | | | FOR BLADDER | | | | | | | X-RAY WI | | | | | | | URINE | | | | | | | VOIDING | | | | | | | PRESSURE | | | | | | | STUDY | | | | | | | urodynamic | | | | | | | testing | | | +--------+--------+ + + + + Reason for Visit Consultation (Routine) +--------+--------+ [...] | | | | | bifida | [place] | [facility] | | | | | without | COUNTY | Mailcode: | | | | | mention of | HEALTH DEPT | [facility] | | | | | hydrocephalu | [address] | [place], [place] | | | | | s, lumbar | [place], | [address] | | | | | region | [place] [address] | Phone: | | | | | Neurogenic | Phone: | [phone] | | | | | bladder, NOS | [phone] | Fax: | | | | | Procedures | Fax: | [phone] | | | | | [place] | [phone] | | | | | | US,RETROPERI | | | | | | | T, | | | | | | | B-SCAN/REAL | | | | | | | TIME,COMPLET | | | | | | | E WI | | | | | | | [...] + + | 09/12/ | Office | [facility] at [facility] | Anita Lopez, | Lipomyelomeningocele | | 2008 | Visit | Floor [address] | PNP [address] [facility] | ; Neurogenic | | | | Mailcode: [facility] | [address] | Bladder, NOS; | | | | [facility] [place] | [place] | Neurogenic Bowel | | | | [address] | [address] | | | | | [phone] | [phone] | | | | | | | [...] documented as of this encounter Progress Notes Anita Lopez, PNP - 09/12/2009 1:30 PM PDTFormatting of this note might be different f rom the original. [facility] Urology Ambulatory Treatment Record Pete Orozco is here today for routine urologic follow-up. History: Age: 13 years old Level of Lesion: lumbosacral lipomyelomeningocele Ambulatory Status: Full Catheterization Program: CIC with 10F cath 1-2 times daily. He is refusing to catheterize during school. Tried Oxytrol patch but it falls off his skin. 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 oxybutynin 3.9 mg/24 hr Transdermal Patch Semiweekly Apply 1 Patch to skin twice weekly (on Thursday and Thursday). Sodium Fluoride 0.25 (0.55) mg Oral CHEW None Entered Physical Exam: Vitals: BP 111/69, HR 54 Wt 48.2 kg Abdomen: soft, non-tender : Masoud IV, circumcised phallus, meatus orthotopic, testes descended bilateral. No break down Back: well healed surgical scar. Skin: draining sinus over right foot Radiology (include date): Urodynamics: None [facility]: No [facility] Renal/bladder ultrasound (06/06/09): The kidneys are normal in location, morphology, and echogenicity. The right kidney measures 8.9 x 4.2 x 4.4 cm and has a volume of 85 ml. The left kidney measures 9.5 x 4.1 x 4.5 cm a nd has a volume of 91 ml. Renal volumes are normal for the patient's weight of 46 kg. No sto umair, cysts, or masses are seen. A small amount of left renal pelvocaliceal fluid is present which resolves on postcatheterization images. There is no right pelvocaliectasis, and no ureterectasis is see n on either side. The bladder wall is thickened and trabeculated, as previously seen. The bladder also contai ns layering debris. Pre-catheterization bladder volume measures 237 ml. Post-catheterization bladder volume measures 30 ml. 1. Small amount of left renal pelvocaliceal fluid which resolves on postcatheterization octavio ges. This may be physiologic, although vesicoureteral reflux cannot be excluded by ultrasoun d. Otherwise unremarkable appearance of kidneys. 2. Neurogenic bladder with debris. Laboratory (include date): Component Latest Reference Range 09/12/2009 COLOR (UR) yellow APPEARANCE (UR) turbid LEUKOCYTE ESTERASE (UR) Low: Negative large NITRITES (UR) Low: Negative negative UROBILINOGEN (UR) Low: 0.2 HEATHER UNITS 0.2 PROTEIN (UR) Low: Negative to Trace mg/dL 30 PH (UR) 5 - 8 7.5 BLOOD (UR) Low: Negative trace SPECIFIC GRAVITY (UR) 1.005 - 1.03 1.010 KETONES (UR) Low: Negative mg/dL negative BILIRUBIN (UR) Low: Negative negative GLUCOSE(UR) Low: Negative to Trace mg/dL negative Assessment: Encounter Diagnoses Code Name Primary? Qualifier 741.93 Lipomyelomeningocele 596.54 Neurogenic Bladder, NOS 564.81 Neurogenic Bowel Plan: - He has never had UDS - should have baseline to evaluate bladder nelly given non-compliance. - catheterize at school. He and Dr. Johnson discussed a reward system (candy one piece a da y for one week as a reward). He should be cathing 4 times per day and he is not on anticholi nergics. documented i n this encounter Plan of Treatment + +---------+--------+ [...] CYSTOGRAM, | Imaging | Routin | | Expected: 10/24/2009 | | VOID W/HYDRODYN | | e | Lipomyelomeningocele | | | W/URETHRCYST & | | | Neurogenic | | | INJECTION | | | Bladder, NOS | | | | | | Neurogenic Bowel | | + +---------+--------+ + + documented as of this encounter Visit Diagnoses + + | Diagnosis | + + | Lipomyelomeningocele Spina bifida without mention of hydrocephalus, lumbar region | + + | Neurogenic bladder, NOS | + + | Neurogenic bowel | + + documented in this encounter"
--- OUTSIDE RECORDS SUMMARY | ~2019-10-26 | XMS | Encounter Summary ---
Demographics + + + | Address | [address] | | | [place] [address] | + + + | Home Phone [...] [place] | | | | | [address] | | + + + + + Care Team Providers + +------+ + | Care Sterile Proc Tech Name | Role | Phone | [...] as of this encounter Progress Notes Interface, Engraver Hand [employer]als In - 07/03/2005 5:02 AM PDT [id number] PAM GALAN Luz Clinic Date: 07/02/2005 Clinic Name: [facility] Discipline: Orthopedic. Diagnosis: Lipomyelomeningocele. [...] since then. Reyna Buckley M.D. / SALVADOR [id number] / [id number] / [id number] / [id number] documented i n this encounter Plan of Treatment Not on filedocumented as of this encounter Visit Diagnoses Not on filedocumented in this encounter"
--- OUTSIDE RECORDS SUMMARY | ~2019-10-26 | XMS | Encounter Summary ---
Demographics + + + | Address | [address] | | | [place] [address] | + + + | Home Phone [...] [place] | | | | | [address] | | + + + + + Care Team Providers + +------+ + | Care Planetarium Technician Name | Role | Phone | [...] [address] | | | | | | [place], [place] | | | | | | [address] | | | | | | [phone] | | | +--------+ + + + [...] [facility] | [address] | [place] [address] | | | SERVICES, STEVEN | ELISSA [...] + | [place] [facility] - | [address] | [place] [address] | | | [place] | | | [...] + | [place] [facility] - | [address] | [place] [address] | | | [place] | | | [...] [facility] | [address] | [place] [address] | | | SERVICES, CORE | ELISSA [...] [facility] | [address] | [place] [address] | | | SERVICES, CORE | ELISSA [...] + + + + + | [facility] | [address] | [place] [address] | | | SERVICES, CORE | [address] | | | + + + + + documented in this encounter Visit Diagnoses + + | Diagnosis | + + | 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
--- OUTSIDE RECORDS SUMMARY | ~2019-10-26 | XMS | Encounter Summary ---
Demographics + + + | Address | [address] | | | [place] [address] | + + + | Home Phone | | + + + | Preferred Language | Unknown | + + + | Marital Status | Single | + + + | Worship Affiliation | CHR | + + + [...] [place] | | | | | [address] | | + + + + + Care Team Providers + +------+ + | Care Volunteer Recruitment Coordinator Name | Role | Phone | + +------+ + | No Pcp Per Patient | PCP | Unavailable | + +------+ + Encounter Details +--------+ + + + + | Date | Type | Department | Care Team | Description | +--------+ + + + + | 12/27/ | Ancillary | Registration [id number] | | | | 2007 | Reg[address]ratio | [address] [facility] | | | | | [address] | [address] Mailcode: [id number] | | | | | | [place], [place] | | | | | | [address] | | | | | | [phone] | | | +--------+ + + + [...]
--- OUTSIDE RECORDS SUMMARY | ~2019-10-26 | XMS | Encounter Summary ---
Demographics + + + | Address | [address] | | | [place] [address] | + + + | Home Phone [...] [place] | | | | | [address] | | + + + + + Care Team Providers + +------+ + | Care Registered Physical Therapist Name | Role | Phone | + +------+ + PCP | Unavailable | + +------+ + Encounter Details +--------+ + + + + | Date | Type | Department | Care Team | Description | +--------+ + + + + | 11/17/ | Results | [facility] | Dave Malik MD | | | 2001 | Only | Floor [address] | [address] | | | | | [address] Mailcode: [facility] | Maritza Ferreira [place], | | | | | [facility] [place], [place] | [place] [address] | | | | | [address] | [phone] | | | | | [phone] | | | +--------+ + + + [...] | US KIDNEY BILATERAL | Routin | 11/17/2001 | | Results for this | | LTD | e | 8:47 AM | | procedure are in the | | | | PST | | results section. | + +--------+ + + + documented in this encounter Results US KIDNEY BILATERAL (11/17/2001 8:47 AM PST) + + + + + [...] KOVACS | | | | | | DotRENAL ULTRASOUND: | | | | | | 11/17/2001 Dictated | | | | | | 11/17/2000 COMPARISON: | | | | | | 05/20/2000. HISTORY: | | | | | | Spina bifida. | | | | | | PROCEDURE: | | | | | | Transcutaneous | | | | | | evaluation of the | | | | | | kidneys and bladder | | | | | | wasperformed utilizing a | | | | | | 5.5 MHz transducer. | | | | | | FINDINGS: The right | | | | | | renal echo texture is | | | | | | normal. The right | | | | | | kidneymeasures 7.4 x 3.9 | | | | | | x 3.4 cm with a volume | | | | | | of 52 cc (prior 39 | | | | | | cc).There is no | | | | | | hydronephrosis, mass, or | | | | | | calculi. The right | | | | | | abdominalureter is not | | | | | | visible. The left renal | | | | | | echo texture is normal. | | | | | | The left kidney | | | | | | measures 7.4 x4.3 x 4.6 | | | | | | cm with a volume of 77 | | | | | | cc (prior 39 cc). | | | | | | There is | | | | | | moderatetransient | | | | | | pelviectasis which may | | | | | | represent reflux. | | | | | | There is no renalmass | | | | | | or calculi. The left | | | | | | abdominal ureter is not | | | | | | visible. The prevoid | | | | | | bladder measures 9.4 x | | | | | | 3.8 x 5.9 cm with a | | | | | | volume of 112cc. The | | | | | | post-catheterization | | | | | | bladder has a residual | | | | | | volume of 11 cc. | | | | | | IMPRESSION: 1. | | | | | | Interval renal growth | | | | | | with volumes normal for | | | | | | age. 2. Transient left | | | | | | renal pelviectasis may | | | | | | represent reflux. | | | | | | There isno static | | | | | | hydronephrosis. A | | | | | | voiding cystourethrogram | | | | | | is recommended. 3. | | | | | | Large prevoid bladder | | | | | | with a volume of 112 cc | | | | | | and a postvoidresidual | | | | | | of 11 cc. END OF | | | | | | IMPRESSION: | | | | + + + + + + + + | Specimen | + + | | + + + +---------+ + + | Performing | Address | City/State/Zipcode | Phone Number | | Organization | | | | + +---------+ + + | [facility] DEPARTMENT OF | | | | | RADIOLOGY | | | | + +---------+ + + documented in this encounter Visit Diagnoses Not on filedocumented in this encounter"
--- OUTSIDE RECORDS SUMMARY | ~2019-10-26 | XMS | Encounter Summary ---
Demographics + + + | Address | [address] | | | [place] [address] | + + + | Home Phone [...] [place] | | | | | [address] | | + + + + + Care Team Providers + +------+ + | Care Vp Compliance Name | Role | Phone | + +------+ + | Dajuan Jerome MD | PCP | | + +------+ + Encounter Details +--------+ + + + + | Date | Type | Department | Care Team | Description | +--------+ + + + + | 10/19/ | Office | [facility] | Report, Outpatient | Progress Note | | 1995 | Visit-Trans | & Rehabilitation | Consultation | | | | cribed | [address] | | | | | | [address] Mailcode: | | | | | | [id number] Physician's | | | | | | [place], | | | | | | [place] [address] | | | | | | [phone] | | | +--------+ + + + [...] as of this encounter Progress Notes Interface, Care Technician In - 01/26/2007 3:12 AM PDT CLINIC DATE: 10/19/[birth year] CLINIC NAME: [facility] DISCIPLINE: PHYSICAL THERAPY Pete attended clinic today accompanied by both of his parents. He is a boy of ten months of age who has lumbosacral lipomyelomeningocele with no gus neuromotor deficit but earlier and consistent observations of asymmetry of function that has slowly resolved over time and with equivocal observations of weakness affecting his right ankle and foot. He also had shown preferential head-turning to the right but this too has resolved. Pete's parents both expressed great pleasure at his developmental progress in the gross motor as well as in other areas. They did not express any specific concerns about deficits or deficiencies in his gross motor functioning or development. They report that he had been receiving early intervention services but this is not apparently continuing, or is continuing only at a much diminished rate. Musculoskeletal examination revealed normal development, with intact range of motion, alignment, and joint integrity that also are intact and appropriate for age. Neuromotor exam was unremarkable. He notably is displaying symmetric of activation, coordination, and response with all four extremities. I observed Pete moving spontaneously and well in the exam room and observed him moving through the gross motor developmental sequence from recumbency up into sitting, then into four-point, and pulling to stand. He is not yet standing independently or letting go to take steps but is doing cruising laterally at furniture. He appears to be functioning at approximately an 11 month gross motor level which is appropriate for his chronologic age. I introduced symptomatology of spinal cord tethering to Pete's parents today for informational purposes and promised to review this subsequently at other clinic appointments. I emphasized that he is not showing any symptomatology now but that his risk for this will continue throughout life and that they are urged to contact this program if they detect any evidence of this. I will plan to reevaluate Pete at his next scheduled full team clinic appointment and at that time will review his neuromotor and musculoskeletal status, his developmental gross motor progress, and will review again symptomatology of spinal cord tethering with his parents. I will also inquire in the meantime about the status of early intervention services for Pete. Raul Zamora Physical Therapist LUC /areli P cc: nterface, Care Technician In - 01/26/2007 3:12 AM PDT CLINIC DATE: 10/19/96 CLINIC NAME: [facility] DISCIPLINE: PEDIATRIC UROLOGY Pete follows up today. He is a 10-my[age]ggn male with a history of lipomyelomeningocele of the lumbosacral level which was repaired in January 1996. He is currently doing well according to his parents without urinary tract problems. The patient did have a prior voiding cystourethrogram around the time of which showed no vesicoureteral reflux. The parents state that the patient has voided well in the time since he has been alive, and the patient did have an ultrasound in which showed grade I left hydronephrosis. Follow up ultrasound in showed both kidneys in the 50th percentile range without any hydronephrosis and only 11 cc within the bladder. The parents did bring up the desire to have the patient circumcised. This was delayed at the time of because of the patient's other medical problems. The patient underwent catheterization today. This shows a volume of 10 cc. The urinalysis shows 10-15 white blood cells; however, many bacteria are present. On exam, his abdomen is soft, nondistended, and nontender without masses. His testes are descended bilaterally without masses. His phallus is uncircumcised. IMPRESSION: 1. Acute urinary tract infection. 2. No evidence of retention. PLAN: 1. The patient will be treated with a seven day course of Septra. We will check the culture to make sure this is sensitive. 2. The patient will need an ultrasound examination in April. 3. The patient will follow up with his primary care physician for a urine recheck after his treatment with Septra. 4. The family will contact their insurance carrier and try to arrange for circumcision. We feel like this is medically indicated as the patient has a current acute urinary tract infection and circumcision may help to prevent this. The patient was seen, examined and discussed with Dr. Malik today. Tari Pettit M.D. Resident, Urology [place] Malik M.D. Leak Detector, Urology B:vitaliy nterface, Care Technician In - 01/26/2007 3:12 AM PDT CLINIC DATE: 10/19/96 CLINIC NAME: [facility] DISCIPLINE: SOCIAL WORK Pete, 10 months of age, comes to clinic today with his parents, Nicky Duron and Yamil Orozco. Pete has been followed in the clinic during his young life for his needs related to his repaired lumbosacral lipomeningocele. Thus far, he is being monitored for his other needs. He lives at home in [place] with his parents and 5-year-old half-brother. Nicky is currently working outside the home as a palliative care physician at a restaurant and Yamil is driving a truck for [employer]. When both of Pete's parents are at work, his maternal aunt provides direct support professional caregiver. Medical coverage is provided through the [facility]. The managed care program is [employer] [place]. Nicky reports that she thinks there will be private health insurance through [employer] next year and this social media job titles will monitor that. Pete was determined non-eligible for SSI and Nicky reports that he is not receiving any Early Intervention services, either. closer on is Dr. Umm Kaufman. There are no social work concerns or activities identified at this time, although this social media job titles remains available as needed. Neli Robison LCSW French Cord Binder JUNE/destiny A cc: nterface, Care Technician In - 01/26/2007 3:12 AM PDT CLINIC DATE: 10/19/96 CLINIC NAME: [facility] DISCIPLINE: NEUROSURGERY Pete is 10 months of age. He has lipomyelomeningocele. His lesion involved nerve roots on the right side. Pete has been well. He is pulling himself to stand. His parents feel that he is about ready to take some steps. EXAMINATION: Pete has a good-looking reciprocal crawl. Spontaneous toe flexion was noted bilaterally. There is no atrophy or deformity of the lower limbs. The feet are the same size and the legs have the same circumference. The patella and the Achilles reflexes were all present, although they were quit difficult to elicit. IMPRESSION: Lipomyelomeningocele. Pete seems stable from a neurosurgical standpoint. PLAN: Routine follow-up through this clinic. Shiraz Vance Jr., M.D. Leak Detector, Neurosurgery PATRICK/minnie nterface, Care Technician In - 01/26/2007 3:12 AM PDT CLINIC DATE: 10/19/96 CLINIC NAME: [facility] DISCIPLINE: ORTHOPEDICS Gabriel is a jkc-bqzai-ilm boy who is followed for his lipomeningocele. Mom notes that he is showing signs of normal development. He is currently cruising quite nicely. He shows possibly a bit of tendency towards weakness in the right gastrocnemius, but otherwise this is seeming to progress along quite well. Physical examination shows he has a full range of motion about the hips, knees and ankles. He is indeed cruising quite nicely. I am not able to detect any weakness in the lower extremity musculature today. IMPRESSION: Lipomeningocele patient doing well. PLAN: No intervention required at present. I have encouraged mom to include him in all normal activities as tolerated. We'll plan a recheck at his next full appointment. Gilbert Romero M.D. Automatic Driller And Reamer, Orthopedics and Rehabilitation ANAMARIA:ana nterface, Care Technician In - 01/26/2007 3:12 AM PDT CLINIC DATE: 10/19/96 CLINIC NAME: [facility] DISCIPLINE: NURSING Pete is a 72-qtveb[age]bjg male with a lumbosacral lipomyelomeningocele repaired . He is accompanied by both parents for todays full evaluation. HEALTH CARE MAINTENANCE: Pete receives his primary care from Dr. Kaufman in [place]. The parents report that his immunizations are up to date and that he has been essentially healthy except for two bouts with otitis. He is currently teething. He has no tooth eruption yet. NEUROGENIC BLADDER: Pete had a renal ultrasound and voiding cystourethrogram in . He has not had any urinary tract infections previously. However, his urine was found to be infected today and is sent for culture. He reportedly is able to void with a urinary stream and parents had questions today regarding the possibilities of having Pete circumcised. NEUROGENIC BOWEL: In the past Pete has had constipated stools. As he has progressed to solid foods in his diet, this has resolved. He currently is having loose to soft, formed stools approximately twice daily. The looser stools cause diaper rash which parents say they are able to control with the use of cornstarch. We discussed the importance of prevention of constipation and the downing issues of intervention with diet. He currently takes Enfamil with iron. He takes some baby foods including mashed potatoes, whole wheat toast and he will drink juices. DEVELOPMENTAL: Pete continues to receive physical therapy and occupational therapy services through Early Intervention. He has made large gains in development and today appears to be within normal limits developmentally. He is crawling and pulling to a stand. He is a very active, curious child. He has much vocalization and is saying single words (Da-Da, Mum and Dave). He is very social and does interactive play. SUMMARY: In general, Pete is doing very well. Developmentally he appears to be normal at this time and he should return for a full evaluation in six months. Annabelle Burnett R.N., B.S.N. Nurse Distribution Specialist AYAKA /antoni A cc: documented in this encounter Plan of Treatment Not on filedocumented as of this encounter Visit Diagnoses Not on filedocumented in this encounter"
--- OUTSIDE RECORDS SUMMARY | ~2019-10-26 | XMS | Encounter Summary ---
Demographics + + + | Address | [address] | | | [place] [address] | + + + | Home Phone [...] + + + | Author | [facility] | + + + | Organization | [facility] | + + + | Address | Unknown | + + + | Phone | Unavailable | + + + Support + + + + + | Name | Relationship | Address | Phone | + + + + + | Sarahi Orozco | ECON | [address] | | | | | [place] | | | | | [address] | | + + + + + Care Team Providers + +------+ + | Care Student Ministry Pastor Name | Role | Phone | + [...] | | | bifida | [place] | [facility] | | | | | without | COUNTY | Mailcode: | | | | | mention of | HEALTH DEPT | [facility] | | | | | hydrocephalu | [address] | [place], [place] | | | | | s, lumbar | [place], | [address] | | | | | region | [place] [address] | Phone: | | | | | Neurogenic | Phone: | [phone] | | | | | bladder, N[place] | [phone] | Fax: | | | | | Procedures | Fax: | [phone] | | | | | [place] | [phone] | | | | | | US,RETROPERI [...] + + | 04/21/ | Office | [facility] at [facility] | Liliane Aldana, | Spina Bifida without | | 2006 | Visit | Floor [address] | PNP [address] | Mention of | | | | St Mailcode: [facility] | [address] | Hydrocephalus, | | | | [place] | [place], [place] | Lumbar Region | | | | [address] | [address] | (Primary Dx) | | | | [phone] | [phone] | | | | | | | [...] this encounter Progress Notes Liliane Aldana - 04/22/2007 3:38 PM Taylor was seen for a neurosurgical evaluation i n the [facility] on April 21, 2007. He was accompanied to the visit by his mother. SUBJECTIVE: Pete is a 11-year-old boy with a lumbosacral level lipomyelomeningocele. He had his init ial repair in January 1996, and a tether release in February 2003. He has a deformity of his right lower extremity a nd foot and has undergone tendon transfer and flexor releases in December 2004. Pete has been having headaches consistently 2-3 times/week for approximately one year. T hey were less frequent over the summer. He describes them as frontal/behind his eyes, and th ey can be bilateral or unilateral. They come on suddenly with no aura. He does have emesis w ith the "really bad ones". Sleep makes the headaches resolve. He is sensitive to light and n oise with the headaches. Mother and her 2 sisters suffer from migraines. Motrin with inconsi stent effect. Headaches are not related to position of his neck or body. He does not wake with them. He d enies any difficulty with swallowing, choking, or gagging. He does not snore. There has been no change is position or strength of extremities. He states that he has back pain at school that resolves when he is at home. He reports no changes in bowel or bladder function and no numbness or tingling in his legs. He has not had a UTI in many years. OBJECTIVE: Pt. is alert, oriented and in NAD. He makes eye contact and answers questions appropriately . HC 53.5 cm (21.06") This places him on the xxpercentile following a xx curve. PERRL, Full EOMI with good upgaze and no nystagmus. Facial features and movements are symmetrical. Tongue is midline, Palate rises with phonati on. Neck is supple, Full ROM. Bilateral full strength symmetrical shoulder shrug. No pronator drift. Finger to nose is intact. Abdomen is soft and non-tender, non-distended. UE 5/5, DTR 2+, negative Terry, LLE 5/5 patellar DTR 1+ , RLE 5/5 iliopsoas/quad/hamstrin g. There is decreased muscle tone and bulk to the calf. Patellar DTR 0. Foot is with deformi ty and claw toes. No dorsiflex/plantar flex. ASSESSMENT/PLAN: Pete's headaches sound migrainous on history. He is not complaining of symtomatic chiari currently. I reccommended follow up with PCP for headache evaluation and management. Opthal omolgy is strongly encouraged as well to assess for papilledama. OFC has not markedly jumped . Pete is showing no sign of spinal cord retethering. He is being referred to [facility] for follow up.I reviewed the signs and symptoms with his mother and asked her to call up if the y should occur. Otherwise, Pete will be seen [...]
--- OUTSIDE RECORDS SUMMARY | ~2019-10-26 | XMS | Encounter Summary ---
Demographics + + + | Address | [address] | | | [place] [address] | + + + | Home Phone [...] | + + + + + | aSrahi Orozco | ECON | [address] | | | | | [place] | | | | | [address] | | + + + + + Care Team Providers + +------+ + | Care Sat Act Instructor Name | Role | Phone | + +------+ + PCP | Unavailable | + +------+ + Encounter Details +--------+ + + + + | Date | Type | Department | Care Team | Description | +--------+ + + + + | 12/03/ | Office | [facility] | Note, [...] Progress Notes Interface, Attorney General In - 06/15/2005 12:07 AM PDT [id number] 12/03/2004 12/03/2004 [id number] PAM LUNANathan Escobar CLINIC DATE: 12/03/2004 PEDIATRICS ORTHOPEDIC CLINIC NOTE CHIEF COMPLAINT: THE CHIEF COMPLAINT IS RIGHT FOOT DEFORMITY. HISTORY OF PRESENT ILLNESS: THIS IS A 8-YEAR-OLD YOUNG MALE WITH A HISTORY OF A LIPOMYELOMENIGOCELE . HE COMES TO VISIT US TODAY FROM [facility]. DR. KNUTSON SAW HIM BACK IN FEBRUARY AND SUGGESTED THAT HE SEE ME IN CONSULTATION IN REGARD TO THIS FOOT TO SEE IF OPERATIVE INTERVENTION WAS APPROPRIATE. THEY WERE ABLE TO FINALLY MAKE IT TO CLINIC TODAY. HE HAS A HISTORY OF _LIPOMYELOMENIGOCELE . HE HAS HAD ONE SURGERY DONE ON HIS SPINE WHEN HE WAS ABOUT A MONTH OLD AND A SECONDARY SURGERY DONE [address] SCHMIDT IN THE DEPARTMENT OF NEUROSURGERY TO DE TETHER HIS CORD. HIS MOM STATED THAT SHE FELT THAT HIS FOOT WAS LOOKING A LITTLE BIT BETTER FOR A BRIEF PERIOD OF TIME AFTER THE SECOND SURGERY BUT THAT SWIFTLY CHANGED AND HE HAS A PROGRESSIVE CAVOVARUS FOOT DEFORMITY. HE IS ABLE TO WALK INDEPENDENTLY BUT IS HAVING INCREASING DIFFICULTY OVER TIME. HE IS ABLE TO RUN WELL AND HIS MOM IS AFRAID THAT HE MIGHT FRACTURE HIS ANKLE DUE TO HOW SIGNIFICANT THE DEFORMITY IS. HE DID TRY BRACING FOR A SHORT PERIOD OF TIME BUT IT SOUNDS IF THE DEFORMITY WAS ALREADY FIXED AND THE BRACES WERE NOT HELPFUL. THEY SOUNDED IF THEY WERE A SUPRAMALLEOLAR AFOS. PAST MEDICAL HISTORY: THERE WERE NO SIGNIFICANT PROBLEMS WITH THE OR DELIVERY. HE WAS BORN VAGINALLY. HE IS THE THIRD CHILD TO HIS MOM AND LEFT THE HOSPITAL WITH HIS MOM. DEVELOPMENTAL HISTORY HE WAS ABLE TO WALK WITHOUT HOLDING ONTO OBJECTS AT [age] YEAR OF AGE. PAST SURGERIES ARE MENTIONED ABOVE. HE HAS HAD NO OTHER SURGERIES. HE TAKES A MEDICATION FOR HIS BLADDER. HIS MOM DOES NOT KNOW WHAT THE NAME OF IT IS. HE TAKES 1/2 MG ONCE A DAY. MEDICAL ALLERGIES: MEDICAL ALLERGIES INCLUDE AMOXICILLIN. HE HAS AN ITCH AND BREAKS OUT WITH RED SPOTS. SOCIAL HISTORY: HE IS IN THE THIRD GRADE IN SPECIAL EDUCATION. BOTH PARENTS LIVE WITH THE CHILD. BOTH PARENTS ARE INVOLVED IN HIS CARE. FAMILY HISTORY: FAMILY HISTORY IS NONCONTRIBUTORY. REVIEW OF SYSTEMS: REVIEW OF SYSTEMS SHOWS THAT HE HAS ISSUES WITH BOWEL MOVEMENTS AND URINATION SECONDARY TO HIS LEFT MYELOMENINGOCELE . HE CATHETERIZES Q 4 AND HIS MOM STATES THAT FOR A BOWEL PROGRAM, HE JUST SITS AND PUSHES FOR ABOUT 15 MINUTES OR SO, AND IS ABLE TO HAVE BOWEL MOVEMENTS. PHYSICAL EXAMINATION: PHYSICAL EXAMINATION SHOWS THAT ADAMA IS ALERT AND COOPERATIVE WITH THE EXAMINER AND IN NO ACUTE DISTRESS. HIS HEENT EXAM IS NORMOCEPHALIC. NO DYSMORPHIC FEATURES ARE NOTED. HIS SPINE EXAM SHOWS THAT IT IS RELATIVELY STRAIGHT. HE HAS A WELL-HEALED SCAR ON THE LUMBAR SPINE. HIS SHOULDERS ARE LEVEL. HIS PELVIS IS NOT LEVEL SECONDARY TO HIS EQUINUS DEFORMITIES OF HIS FOOT. LOWER EXTREMITY EXAM SHOWS THAT HE HAS FULL RANGE OF MOTION IN HIPS AND KNEES BILATERALLY. HIS LEFT ANKLE HAS A FULL RANGE OF MOTION. HE HAS FULL CONTROL OF HIS LEFT FOOT WITH DORSIFLEXION AND PLANTAR FLEXION INVERSION AND EVERSION. THE RIGHT FOOT ON OBSERVATION IS IN A SIGNIFICANTLY EQUINOCAVUS AND VARUS DEFORMITY. HE HAS ABOUT 15 TO 20 DEGREES OF FIXED EQUINUS. HE HAS A VERY LARGE CAVUS WITH A TIGHT PLANTAR FASCIA. HE HAS A VERY SIGNIFICANT DORSAL PROMINENCE OVER THE MIDFOOT LATERALLY. IT APPEARS THAT HE HAS A MIDFOOT BREAK IN THIS REGION. HE HAS CLAW TOES ON THE RIGHT WHICH ARE FLEXIBLE. HIS HEEL IS IN VARUS AND IS NOT EASILY CORRECTIBLE. ACCORDING TO DR. KNUTSON'S LAST NOTE HE DOES NOT CORRECT ON ENAMORADO BLOCK TEST. HE HAS NO ACTIVE FUNCTION IN HIS PERONEUS TERTIUS OR PERINEALS ON THE RIGHT FOOT BUT HE HAS AN ACTIVE 4/5 ANTERIOR TIBIA ON THAT RIGHT FOOT. HE HAS 5/5 QUADRICEPS AND HAMSTRINGS ON THE RIGHT SIDE WELL THE LEFT. AND AGAIN, HE HAS FULL STRENGTH AND FUNCTION OF THE LEFT FOOT. THE LEFT FOOT IS A PLANTAR GRADE FOOT. X-RAYS WERE ORDERED BUT HAVE NOT BEEN REVIEWED AT THE TIME OF THIS DICTATION. OVERALL IMPRESSION IS A RIGHT EQUINOCAVUS VARUS FOOT WHICH IS SIGNIFICANTLY STIFF. THIS IS NOT AMENABLE TO BRACE TREATMENT. HE HAS SIGNIFICANT CALLOSITY OVER HIS LATERAL PLANTAR ASPECT OF HIS FOOT. RECOMMENDATION: RECOMMENDATIONS WOULD BE FOLLOWS. HE WILL NEED A PLANTAR FASCIOTOMY AND STEINDLER STRIPPING TO HELP WITH THE MIDFOOT. HE WOULD BENEFIT FROM A SPLIT ANTERIOR TIB TENDON TRANSFER POSSIBLY A POSTERIOR TIBIALIS LENGTHENING, A FLEX DIGITORUM LONGUS LENGTHENING, AND A POSSIBLE CALCANEAL OSTEOTOMY TO LATERALIZE THE CALCANEUS, AND LIKELY A TENDO ACHILLES LENGTHENING. I TOLD HIS MOM THAT WE WOULD NEED TO CONSIDER DOING MULTIPLE SMALL SURGERIES TO HIS FOOT IN ORDER TO CORRECT THIS AND THAT BRACING WOULD NOT BE APPROPRIATE. SHE SHOWS A MODEST UNDERSTANDING OF ALL THIS. SHE DOES UNDERSTAND THAT SURGERY WOULD BE NECESSARY. SHE DOES NOT SEEM TO GRASP THE DETAILS. THE RECOMMENDATION WOULD BE FOR HIM TO OBTAIN THESE X-RAYS SO WE HAVE A BASELINE. I DO NOT PLAN ON DOING ANY OSTEOTOMIES AT HIS AGE OF 8. AND, I WOULD LIKE TO FILL OUT AN INTAKE SHEET WHICH HAS ALREADY BEEN DONE FOR THE SOFT TISSUE RELEASES ONLY. I EXPLAINED CAREFULLY TO HIS MOM AND ADAMA THAT I CANNOT MAKE HIS FOOT LIKE THE OTHER SIDE BUT JUST GET IT INTO A BETTER POSITION. I WOULD LIKE TO HAVE HIM FIT FOR A BRACE IN THE OPERATING ROOM AND THEN WE CAN DELIVER IT AFTER 6 WEEKS OF BEING IN A CAST. LUNA COTTRELL M.D. LUZ/MIGUEL ANGEL P C: 12/10/2004 [id number] CC: DR. EVE KNUTSON [facility] ELECTRONICALLY SIGNED BY LUNA COTTRELL 02-21-2005 10:32:42 AM documented i n this encounter Plan of Treatment Not on filedocumented as of this encounter Visit Diagnoses Not on filedocumented in this encounter"
--- OUTSIDE RECORDS SUMMARY | ~2019-10-26 | XMS | Encounter Summary ---
Demographics + + + | Address | [address] | | | [place] [address] | + + + | Home Phone [...] Author + + + | Author | [facility] | + + + | Organization | [facility] | + + + | Address | Unknown | + + + | Phone | Unavailable | + + + Support + + + + + | Name | Relationship | Address | Phone | + + + + + | Sarahi Orozco | ECON | [address] | | | | | [place] | | | | | [address] | | + + + + + Care Team Providers + +------+ + | Care Director Of Financial Aid Name | Role | Phone | + +------+ + | Dajuan Jerome MD | PCP | | + +------+ + Encounter Details +--------+ + + + + | Date | Type | Department | Care Team | Description | +--------+ + + + + | 05/03/ | Orders Only | [facility] at [facility] 7th | | | | 2009 | | Floor [address] | | | | | | St Mailcode: [facility] | | | | | | [facility] [place], [place] | | | | | | [address] | | | | | | [phone] | | | +--------+ + + + [...]
--- OUTSIDE RECORDS SUMMARY | ~2019-10-26 | XMS | Encounter Summary ---
Demographics + + + | Address | [address] | | | [place] [address] | + + + | Home Phone [...] [place] | | | | | [address] | | + + + + + Care Team Providers + +------+ + | Care Airplane Dispatcher Name | Role | Phone | + [...] as of this encounter Progress Notes Interface, Cooker Tender In - 07/14/2006 3:11 AM PDTCLINIC DATE: [...] manual muscle testing. Reyna Buckley M.D. FERNANDO/x88 [id number] signed by Fredo, Cooker Tender In at 07/14/2006 3:11 AM Barak huddleston, Cooker Tender In - 07/14/2006 3:11 AM PDTCLINIC DATE: 05/04/2002 CLINIC NAME: [facility] DISCIPLINE: PEDIATRIC UROLOGY SUBJECTIVE: Pete is a 6-year-old male with history of neurogenic bladder, secondary to lumbosacral lipomeningocele. It was repaired in January 1996. He has neurogenic bladder and has had only UTI in his life, which occurred as an infant. He presently catheterizes every four hours with a #8-British catheter. He does this himself without parents' [...] with another ultrasound and serum chemistries. Danny Dhaliwal M.D. Pediatric Urology DL:[id number] CC: Morris [place] [id number] signed by Fredo, Cooker Tender In at 07/14/2006 3:11 AM Barak huddleston, Cooker Tender In - 07/14/2006 3:11 AM PDTCLINIC DATE: [...] Zamora Physical Therapist WF:[id number] C: 05/09/02 () [id number] signed by Interface, Cooker Tender In at 07/14/2006 3:11 AM PDTdoc umented in this encounter Plan of Treatment Not on filedocumented as of this encounter Visit Diagnoses Not on filedocumented in this encounter"
--- OUTSIDE RECORDS SUMMARY | ~2019-10-26 | XMS | Encounter Summary ---
Demographics + + + | Address | [address] | | | [place] [address] | + + + | Home Phone [...] + + + | Author | [facility] | + + + | Organization | [facility] | + + + | Address | Unknown | + + + | Phone | Unavailable | + + + Support + + + + + | Name | Relationship | Address | Phone | + + + + + | Sarahi Orozco | ECON | [address] | | | | | [place] | | | | | [address] | | + + + + + Care Team Providers + +------+ + | Care Food Equipment Service Technician Name | Role | Phone | + +------+ + | No Pcp Per Patient | PCP | Unavailable | + +------+ + Encounter Details +--------+ + + + + | Date | Type | Department | Care Team | Description | +--------+ + + + + | 07/02/ | Ancillary | Registration [id number] | Robert Johnson MD | | | 2004 | Registratio | [facility] | [address] | | | | [address] | [address] Mailcode: RPB07 | [place], [place] | | | | | [place], [place] | [address] | | | | | [address] | [phone] | | | | | [phone] | | | +--------+ + + + [...]
--- OUTSIDE RECORDS SUMMARY | ~2019-10-26 | XMS | Encounter Summary ---
Demographics + + + | Address | [address] | | | [place] [address] | + + + | Home Phone [...] [place] | | | | | [address] | | + + + + + Care Team Providers + +------+ + | Care Funeral Service Apprentice Name | Role | Phone | + +------+ + | No Pcp Per Patient | PCP | Unavailable | + +------+ + Encounter Details +--------+ + + + + | Date | Type | Department | Care Team | Description | +--------+ + + + + | 02/17/ | Ancillary | LAB CORE [address] | | | | 2013 | Orders | [address] | | | | | | [place], [place] | | | | | | [address] | | | | | | [phone] | | | +--------+ + + + [...] + | CULTURE, TISSUE | Routin | 02/17/2014 | Cellulitis and | Results for this | | | e | 11:25 AM | abscess of foot, | procedure are in the | | | | PDT | except toes | results section. | | | | | [ICD-9-CM] | | + +--------+ + + + documented in this encounter Results CULTURE, TISSUE (02/17/2014 11:25 AM PDT) + + + + + + | Component | Value | Ref Range | Performed | Pathologist | | | | | At | Signature | + + + + + + | SPECIMEN | Tissue | | [facility] | | | TYPE | | | [facility] | | | | | | [place] | | + + + + + + | SOURCE BODY | Foot - right | | [facility] - | | | SITE | | | [facility] | | | | | | [place] | | + + + + + + | CULTURE | C TissueSource: Foot - | | [facility] - | | | RESULT | right | | [facility] - | | | | Final GRAM | | [place] | | | | STAIN:No squamous | | | | | | epithelial cells No | | | | | | polymorphonuclear cells | | | | | | No organisms seen | | | | | | CULTURE RESULT:Rare | | | | | | Coagulase negative | | | | | | Staphylococcus species | | | | | | Rare Corynebacterium | | | | | | species No anaerobic | | | | | | organisms isolated. | | | | | | ORGANISM:..............C | | | | | | oagulase negative | | | | | | Staphylococcus | | | | | | speciesCefazolin | | | | | | | | | | | | SClindamycin | | | | | | RErythromycin | | | | | | ROxacillin | | | | | | | | | | | | STrimethoprim/Sulfa | | | | | | STetracycline | | | | | | SVancomycin | | | | | | S | | | | + + + + + + + + | Specimen | + + | Tissue - Foot - | | right | + + + + + + + | Performing | Address | City/State/Zipcode | Phone Number | | Organization | | | | + + + + + | [facility] | [address] | [place] [address] | | | [employer] | | | | + + + + + documented in this encounter Visit Diagnoses + + | Diagnosis | + + | Cellulitis and abscess of foot, except toes | + + documented in this encounter"
--- OUTSIDE RECORDS SUMMARY | ~2019-10-26 | XMS | Encounter Summary ---
Demographics + + + | Address | [address] | | | [place] [address] | + + + | Home Phone [...] [place] | | | | | [address] | | + + + + + Care Team Providers + +------+ + | Care Bag Shop Worker Name | Role | Phone | [...] Operative Report | | 1996 | | [place] [facility] [address] | | | | | Transcribed | Nasir Tineo | | | | | | Mailcode: [facility] | | | [facility] | | | | | | [facility], [address] | | | | | | [place], [place] | | | | | | [address] | | | | | | [phone] | | | +--------+ + + + [...] are in the | | | | [facility] | | results section. | + +--------+ + + + documented in this encounter Results OPERATION RECORD (02/03/1997 12:00 AM [facility]) + + | Procedure Note | + + | 02/03/1997 12:00 AM [facility] | | [facility] | | [address], [place] [address] | | [facility] | | | | OPERATION RECORD | | | | Med Rec No.: [id number] Date: 02/03/97 | | | | Name: Pete Orozco Luz | | | | | | ATTENDING SURGEON: Dave Malik M.D. | | Roller Checker, | | Urology | | | | CREDIT RISK REVIEW OFFICER(S): Ba Dixon M.D. | | Resident, Urology | | | | PREOPERATIVE DIAGNOSIS(ES): History of urinary tract infection; | | uncircumcised. | | | | POSTOPERATIVE DIAGNOSIS(ES): Same. | | | | OPERATION(S) PERFORMED: Circumcision. | | | | ANESTHESIA: General with penile block at conclusion of | | procedure. | | | | INDICATIONS: This is a ovg-bthr-ock boy who was born with | | [...] | | Dave Malik M.D. | | Roller Checker, | | Urology | | | | | | | | W/cjs | | | | A | | | | cc: | | | + + documented in this encounter Visit Diagnoses Not on filedocumented in this encounter"
--- OUTSIDE RECORDS SUMMARY | ~2019-10-26 | XMS | Encounter Summary ---
Demographics + + + | Address | [address] | | | [place] [address] | + + + | Home Phone | | + + + | Preferred Language | Unknown | + + + | Marital Status | Single | + + + | Taoist Affiliation | CHR | + + + [...] [place] | | | | | [address] | | + + + + + Care Team Providers + +------+ + | Care Occupational Therapy Assistant Name | Role | Phone | + +------+ + | Dajuan Jerome MD | PCP | | + +------+ + Encounter Details +--------+ + + + + | Date | Type | Department | Care Team | Description | +--------+ + + + + | 10/02/ | Machine Paint Mixer | [facility] at [facility] 7th | Robert Johnson MD | Lipomyelomeningocele | | 2009 | | Floor [address] | [address] | ; Neurogenic | | | | St Mailcode: [facility] | [place], [place] | bladder, NOS | | | | [facility] [place] | [address] | | | | | [address] | [phone] | | | | | [phone] | | | +--------+ + + + [...] of this encounter Results KIDNEY & BLADDER (10/02/2010 3:11 PM PST) + + + + + + | Component | Value | Ref Range | Performed | Pathologist | | | | | At | Signature | + + + + + + | [facility] K[facility]NEY & | ULTRASOUND OF THE | | | | | BLADDER | KIDNEYS AND BLADDER, | | | | | | 10/02/10 14:38:37 | | | | | | HISTORY: Rule out | | | | | | hydronephrosis | | | | | | COMPARISON: 06/06/2008 | | | | | | PATIENT'S WEIGHT: 53.6 | | | | | | kg TECHNIQUE:Real-time | | | | | | ultrasound of the | | | | | | kidneys and bladder was | | | | | | performed. FINDINGS:The | | | | | | bladder wall is | | | | | | trabeculated, with | | | | | | debris seen in the | | | | | | bladderlumen. The | | | | | | estimated bladder volume | | | | | | at the beginning of | | | | | | theexamination was 117 | | | | | | cc. The patient did | | | | | | void at the conclusion | | | | | | ofthe study. The | | | | | | postvoid volume measures | | | | | | approximately 3 cc. | | | | | | There tad possible | | | | | | posterolateral left | | | | | | bladder diverticulum, | | | | | | measuring up to8 mm in | | | | | | diameter. No distal | | | | | | ureterectasis. The right | | | | | | kidney is normal in | | | | | | size, cortical | | | | | | echogenicity, | | | | | | andcorticomedullary | | | | | | differentiation. The | | | | | | right kidney measures | | | | | | 9.1 x4.2 x 5.2 cm, 104 | | | | | | cc [...] | | | | left kidney measures 9.7 | | | | | | x 3.7x 5.1 cm, 95 cc in | | | | | | volume. There is mild | | | | | | left pelvocaliectasis, | | | | | | withthe left renal | | | | | | pelvis measuring up to 6 | | | | | | mm in diameter; the | | | | | | leftrenal pelvis | | | | | | decreases to 3 mm in | | | | | | diameter after voiding. | | | | | | IMPRESSION: 1. | | | | | | Sonographically normal | | | | | | right kidney. 2. Mild | | | | | | left renal | | | | | | pelvocaliectasis, which | | | | | | resolves on voiding. 3. | | | | | | Trabeculated, | | | | | | neurogenic bladder with | | | | | | debris. | | | | | | Recommendcorrelation | | | | | | with urinalysis. I have | | | | | | personally viewed this | | | | | | procedure/exam and | | | | | | reviewed this report. | | | | | | Author: MELODY BERRY, | | | | | | MDReviewer: MARIO | | | | | | Morris TOMAS STATUS | | | | | | FINAL / Dr. 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
--- OUTSIDE RECORDS SUMMARY | ~2019-10-26 | XMS | Encounter Summary ---
Demographics + + + | Address | [address] | | | [place] [address] | + + + | Home Phone | | + + + | Preferred Language | Unknown | + + + | Marital Status | Single | + + + | Gnosticism Affiliation | CHR | + + + [...] [place] | | | | | [address] | | + + + + + Care Team Providers + +------+ + | Care Molder Machine Tender Name | Role | Phone | + +------+ + PCP | Unavailable | + +------+ + Encounter Details +--------+ + + + + | Date | Type | Department | Care Team | Description | +--------+ + + + + | 11/17/ | Results | [facility] at [facility] 7th | Robert Johnson MD | | | 2001 | Only | Floor [address] | [address] | | | | | St Mailcode: [facility] | [place], [place] | | | | | [facility] [place] | [address] | | | | | [address] | [phone] | | | | | [phone] | | | +--------+ + + + [...] | + + + + + | [facility] | [facility] | [place] [address] | | | PATHOLOGY | [address] | | | + + + + + | [facility] | [address] [facility] | [place] [address] | | | PATHOLOGY | [address] | | | + + + + + documented in this encounter Visit Diagnoses Not on filedocumented in this encounter"
--- OUTSIDE RECORDS SUMMARY | ~2019-10-26 | XMS | Encounter Summary ---
Demographics + + + | Address | [address] | | | [place] [address] | + + + | Home Phone [...] + + + | Author | [facility] | + + + | Organization | [facility] | + + + | Address | Unknown | + + + | Phone | Unavailable | + + + Support + + + + + | Name | Relationship | Address | Phone | + + + + + | Sarahi Orozco | ECON | [address] | | | | | [place] | | | | | [address] | | + + + + + Care Team Providers + +------+ + | Care Control Panel Tester Name | Role | Phone | + +------+ + | Dajuan Jerome MD | PCP | | + +------+ + Encounter Details +--------+ + + + + | Date | Type | Department | Care Team | Description | +--------+ + + + + | 08/18/ | Transcribed | Allergy Clinic at | Dictation, Other | Transcribed | | 1995 | | [facility] [address] | | | | | | Ashley Acevedo | | | | | | Mailcode: [id number] [facility] | | | | | | C[place] Moon | | | | | | [facility] | | | | | | [place] [address] | | | | | | [phone] | | | +--------+ + + + [...] as of this encounter Progress Notes Interface, Cafeteria Cook In - 01/31/2007 2:48 PM PDT [facility] [address], [place], [place] [address] August 18, 1996 [facility] NG MD [address] [place] [id number] RE:Pete Orozco MR#:[id number] Dear Umm: We saw [id number] Pete today in the [facility] in [place] with Kaleb Cuello M.D. We last saw him July 13 in [place] at the [facility] to check out the reported weakness on the right side. This was an opportunity to meet with [facility], Public Health, and other community agents and professionals. You will recall that his underlying diagnosis is lipomyelomeningocele. There is no hydrocephalus. He had a normal VCUG and renal ultrasound with small post-void residuals and therefore, to date, no evidence of neurogenic bowel or bladder. There was no obvious motor deficit. There has been continued improvement in use and ability on the right side. Family members have suggested that he is "left-handed". However, today we had an opportunity to observe his motor functions, both gross and fine, for an excellent examination. He still does not actively flex the right knee under in alternating and crawling movement. However, he does so very nicely when he turns to the right. He does get up on all four and rock and his use of his right hand appears to be symmetrical and full, that is, grasping for, transferring nicely, turning objects over with both hands and bringing to the midline of the mouth. We were basically quite pleased. Other developmental progress demonstrated today included standing nicely and bearing weight, including on his heels and his toes; spotting a large doll and crossing the room to play with it. With regard to bowel function, mother describes that it is now loosened up and he has no more signs of constipation. He is having bowel movements one to three times per day, and they are usually, in fact, loose. The family situation is pretty much the same. They are currently moving into a new residence. The major activities on physical examination today were the observation of his developmental and motor functions. He did appear happy and cheerful and really interacting very appropriately for his stated chronologic age. He obviously turned to sound and focused and interacted well with regards to vision, with normal tracking. The spine lesion is well healed. There are no significant skin lesions. There are no orthopedic deformities or contractures. The cranial nerves were grossly intact. He had normal strength and tone throughout. DISCUSSION: We had opportunity to answer questions from the parents as well as from community providers. Lipomyelomeningocele was reviewed and discussed, and the risk of tethering from residual lipomatous tissue was highlighted. Herein lies the reason for frequent monitoring, to be sure that he does not lose any function, and to intervene surgically if there are the first signs of loss of ability or function in the lower extremities. His right upper extremity function now appears quite normal. There is only a slight difference in the right lower extremity in that he does not actively flex his knee under him, though he can be directed to do so. He is currently receiving Early Intervention Services which includes PT every few weeks and quarterly OT evaluation. These are certainly adequate. He is due for a well-child check with you at nine months of age. He will see us in [place] in October and return for full check up at 12 months of age in December. The next full examination with this program will be a year from now, which will be an excellent opportunity to review his development and serve his needs. Thank you again for the opportunity to see Pete and his parents. Please feel free to call if we can offer any clarification, liaison, or coordination. Robert Johnson M.D. Acid Patroller, Pediatrics SHAYNE /ever A cc: [facility] documented in this encounter Plan of Treatment Not on filedocumented as of this encounter Visit Diagnoses Not on filedocumented in this encounter
--- OUTSIDE RECORDS SUMMARY | ~2019-10-26 | XMS | Encounter Summary ---
Demographics + + + | Address | [address] | | | [place] [address] | + + + | Home Phone | | + + + | Preferred Language | Unknown | + + + | Marital Status | Single | + + + | L[employer] Affiliation | CHR | + + + [...] [place] | | | | | [address] | | + + + + + Care Team Providers + +------+ + | Care Operating Room Rn Name | Role | Phone | + [...] as of this encounter Progress Notes Interface, Coverage Specialist In - 06/14/2005 7:10 PM PDTClinic Date: 03/06/2004 Clinic Name [facility]ida Clinic Discipline Pediatric Nurse Practitioner/Staffing Summary Pete is an 8-year-old male with medical history of lumbosacral lipomyelomeningocele. He returns for routine follow-up through [facility]'s spina bifida clinic in the company of his father, Yamil Orozco, and his grandmother. Chief Concern: Pete's father identifies his ongoing problems with his right foot and ankle as well as complaints of pain at his left knee as his chief concern for today's visit. Database Review/Healthcare Maintenance: Primary care continues with Dr. Kaufman in [place], [place]. Pete's last team evaluation was approximately one year ago. Allergies: None known. RAST testing has not yet been done. Latex precautions are generally observed. He has no history of reactions to contact with latex. He does not routinely see a dentist. Yamil does state he is scheduled to see one in the near future. He has not had an ophthalmology evaluation. His father does not recall a vision screening. Both Pete's father and mother do wear glasses to correct for visual acuity limitations. Pete states he sits near the back of the classroom. When asked if he can see the board well enough, he replies he doesn't see all that well. He also complains of headaches once in a while . His father states he has headaches approximately twice a month, for which he is given Tylenol. He is also given Tylenol for aches and pains, especially in his left knee, usually only twice weekly. Otherwise, general health has been good without significant accident, injury and no need for overnight hospitalization. Medications: None, except for Tylenol p.r.n. Review of Systems: A general review was negative except as discussed above and below. Pete has no difficulties with sleep. His appetite is excellent. Growth has been consistent without concern. Lumbosacral Myelomeningocele: Repaired in 1995. Pete had recurring complaints of leg and back pain beginning as early as March 1998. He did eventually undergo spinal cord detethering approximately one year ago, February 2003. Prior to that time, evaluation supported a wait and see management approach. Yamil states that there has been some improvement status post detethering surgery, but he does not see improvement in his right foot. Pete does point to the back of his knee when asked where his leg hurts. He denies shooting pains down his legs or recurring pain in his back. He is reported to be extremely active and able to keep up with his peers. His father states it is painful for him to watch him walking on his foot, because he walks on the lateral border. Other Neurosurgical: Pete does not have hydrocephalus. He does report periodic headaches and states he is sometimes nauseated when these headaches occur. There is some family history of migraine headaches. Neurogenic Bladder: Pete has been on a clean intermittent catheterization program for some time. Ditropan was added to his regimen more than a year ago. Other history includes a new onset Grade II hydronephrosis noted two years ago. This did resolve a few months later on repeat ultrasound. His most recent renal ultrasound was December 2002 and was without hydronephrosis. Today's renal ultrasound is also normal without hydronephrosis. Today his father reports he does continue on a catheterization regimen. He is able to self-catheterize. His parents do stand by available to assist as needed. Ditropan was discontinued late last summer when the family's [employer] coverage was lost due to an increase in their income. The increased income, however, did not provide health insurance. They have now requalified for the [employer]. He has not had urinary tract infections. Neurogenic Bowel: Pete's pattern is consistent with a neurogenic bowel. He does have at least two daily stools. Habit training was encouraged in December 2002 and these instructions were repeated in June 2003. At that time, Benefiber was recommended. Yamil reports Pete is essentially independent in managing his bowel program, but the habit training program was not formally followed. He cannot predict when his bowel movements will occur. He is, however, able to change himself when he needs to. He does not always recognize when the stool is in his diaper and does sometimes need to be reminded. Orthopedic: Baseline: Slight pelvic obliquity. Right lower limb and foot appear smaller than left. There is fixed hindfoot varus, fixed clawing of toes, and supinated forefoot all on the right. 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 After detethering surgery he returned for follow-up in April 2003 and SMO (supramalleolar orthosis) was prescribed for his right foot. He has had two scoliosis films, first in November 2001. This revealed 12 degrees of dextroscoliosis between T1 and L4. 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 The second scoliosis x-ray was obtained in December 2002 and measured 8 degrees of dextroscoliosis between T3 and L1. Neuromotor/Mobility: Baseline: Asymmetry with weakness of anterior compartment muscles on the right. His endurance for manual muscle strength testing was diminished at his last visit and it was noted that there was increased rigidity of his foot, consistent with progression of his known muscle imbalance. Psychoeducational: Baseline: Occupational therapy evaluation early in 1996 was within normal limits. A later follow-up evaluation found mild delay in developmental fine motor skills. A formal cognitive evaluation three years ago resulted in a full-scale IQ score of 89, in the low-average range. There was no significant discrepancy between verbal and performance scores. Pete participated in Early Intervention and [employer]. 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 It is a mixed first/second grade class. A report was received from his school just prior to clinic, stating his academic skills are at the beginning first grade level. He has been very slow to acquire new skills. His father concurs that this has been true. He states he believes the school is providing sufficient support for Pete. Social: Pete continues to live in [place] with his parents and two brothers. One is younger and one is older. Physical Examination: Weight 24.8 kg, at the 25th percentile. Stature 127.0 cm, between the 25th and 50th percentile. Heart rate 75. Blood pressure 95/64. Head circumference 51.5 cm. GENERAL: Pete is a friendly, sweet, and cooperative young man in no apparent distress. SKIN: Smooth, without rashes or lesions. There are well-healed surgical scars on his sacral spine. HEENT: Head is normocephalic. Eyes are clear. Pupils are equal, round, and reactive to light and accommodation. Extraocular movements are intact without nystagmus. Cover-uncover is negative. Red reflexes bilaterally symmetric. Fundal examination appears to be within normal limits. Ears, nose, and throat are normal in structure. Tympanic membranes are clear. Palate is intact. Uvula is midline. Palate rises symmetrically. Lymphadenopathy is not present. Cranial nerves 2-12 are grossly intact. Visual acuity is not assessed. Deep tendon reflexes 2+ in upper and lower extremities, 1+ at Achilles, although not well elicited on the right. Rapid alternating, sequential finger touching, and [id number]-[id number] are all performed well and smoothly. LUNGS: Clear to auscultation. HEART: Irregular rate due to sinus tachycardia. No murmur noted on auscultation. ABDOMEN: Soft and flat without hepatosplenomegaly. GENITOURINARY: Normal male circumcised. Soft stool is in diaper. MUSCULOSKELETAL: Upper extremity tone and range of motion is normal. Strength is full to confrontational testing. Hips and knees have full range of motion without deformity. The left foot and ankle appear to be normal in alignment and function. The right foot is as previously described with fixed hindfoot varus, fixed clawing of toes, and supinated forefoot. There is a palpable lower thoracic upper lumbar scoliosis curve to the right. There is asymmetry of pelvis when standing. Pete did demonstrate standing on his toes and somewhat on his heels. Please refer to report of physical therapist for more precise description of neuromuscular findings. Impression: Pete is an 8-year-old boy in general good health with some complications from his congenital lipomyelomeningocele. He and his family continue to manage the neurogenic bowel and bladder. Pete deserves praise for becoming proficient in self-catheterization. He is also making strides with regard to bowel management, although this area can be improved upon. The following recommendations are made: 1. Neurosurgical: Despite continued problems with his right foot deformity, today's examination and assessment do not suggest a neurosurgical etiology for these findings. He will return for routine follow-up through our spina bifida clinic. 2. Neurogenic Bladder: While Pete has done well with his catheterization, he does need to be taking Ditropan. He is provided a new prescription for catheters and Ditropan by the urologist. Today's ultrasound is normal without hydronephrosis. Yamil is carefully instructed to please contact this clinic should they run into difficulty again maintaining his medication regimen. We can always attempt to find gift funds to cover the cost of Ditropan should they no longer have insurance for this purpose. 3. Neurogenic Bowel: Again, the rationale for a habit training program with the use of Dulcolax suppositories is reviewed with Yamil. Pete is encouraged to consider this his responsibility. However, Yamil is reminded that it will take active parental involvement over at least two months to work out a training program that will result in a predictable stool pattern. He is told that ultimately it is a trial and error process, as each individual responds differently to the program. 4. Orthopedic: It is the consensus of the team that Pete's right foot deformity is not currently braceable. The SMO that was made for him never fit well. It always hurt and he has not worn it in some time. Pete will be referred to Dr. Madhva Cobb, pediatric orthopedist for consideration of right foot surgical correction. A follow-up scoliosis x-ray has also been ordered. If he does not obtain this x-ray today, we will see that he gets it on his return for orthopedic follow-up. 5. Psychoeducational: It has been three years since Pete's formal cognitive evaluation. Based on those results, one would not expect Pete to have significant difficulties with school. We will plan to schedule him for repeat cognitive evaluation some time this year to determine if there has been a change in his baseline performance. In addition, the IEP recently obtained for his chart will be reviewed for appropriateness of support. 6. Opthalmology: Pete should have a baseline ophthalmology evaluation. Visual acuity needs to be determined. Plan for Follow-up: We will schedule Pete for repeat psychometric evaluation sometime during this next year and prior to his next full-team evaluation. We will see him in follow-up for needs related to his foot deformity, per Dr. Cobb's recommendations. He will be scheduled for full-team evaluation in one year's time. We are available for assistance and consultation by telephone should any concerns arise in the interim. Dennise Solares R.N., M.S., C.P.N.P. Pediatric Nurse Practitioner RCA/[id number] A C: 03/13/2004 [facility] [id number] signed by Interface, Coverage Specialist In at 06/14/2005 7:10 PM PDTdoc umented in this encounter Plan of Treatment Not on filedocumented as of this encounter Visit Diagnoses Not on filedocumented in this encounter"
--- OUTSIDE RECORDS SUMMARY | ~2019-10-26 | XMS | Encounter Summary ---
Demographics + + + | Address | [address] | | | [place] [address] | + + + | Home Phone [...] [place] | | | | | [address] | | + + + + + Care Team Providers + +------+ + | Care Air Traffic Control Specialist Name | Role | Phone | + +------+ + | Umm Kaufman MD | PCP | | + +------+ + Reason for Visit AUTH/CERT +--------+--------+ + + + + | Status | Reason | Specialty | Diagnoses / | Referred By | Referred To | | | | | Procedures | Contact | Contact | +--------+--------+ + + + + | Closed | | Ped Acute | | | Dch 9s Pacs | | | | Care | | | 700 | | | | | | | Lacy [address] | | | | | | | [facility] | | | | | | | Mail Code: | | | | | | | DC9S | | | | | | | [place] | | | | | | | [address] | | | | | | | Phone: | | | | | | | [phone] | | | | | | | Fax: | | | | | | | [phone] | +--------+--------+ + + + + Encounter Details +--------+ + + + + | Date | Type | Department | Care Team | Description | +--------+ + + + + | 06/26/ | Hospital | [facility] [address] | Justice [place], | | | 2010 - | Encounter | [address] | [address] | | | | | [place], [place] | [address] | | | 07/03/ | | [address] | [place], [place] | | | 2010 | | [phone] | [address] | | | | | | [phone] | | | | | | | | +--------+ + [...] + + + | Blood Pressure | 126/81 | 07/03/2011 7:45 AM | | | | | PDT | | + + + + + | Pulse | 64 | 07/03/2011 7:45 AM | | | | | PDT | | + + + + + | Temperature | 36.6 C (97.9 F) | 07/03/2011 7:45 AM | | | | | PDT | | + + + + + | Respiratory Rate | 20 | 07/03/2011 7:45 AM | | | | | PDT | | + + + + + | Oxygen Saturation | 97% | 07/03/2011 4:58 AM | | | | | PDT | | + + + + + | Inhaled Oxygen | - | - | | | Concentration | | | | + + + + + | Weight | 56.2 kg (123 lb 14.4 | 06/26/2011 8:45 AM | | | | oz) | PDT | | + + + + + | Height | 172.7 cm (5' 8") | 06/26/2011 8:45 AM | | | | | PDT | | + + + + + | Body Mass Index | 18.84 | 06/26/2011 8:45 AM | | | | | PDT | | + + + + + documented in this encounter Discharge Summaries Lb Luo MD - 07/02/2011 3:42 PM PDT INPATIENT PHYSICIAN DISCHARGE SUMMARY Attending Physician: Justice Douglas MD PCP: primary care physician Admission Date: 06/26/2011 Discharge Date: 07/03/2011 Diagnoses Principal Final Diagnosis: 1. Neurogenic bladder Additional Diagnoses: Procedures 1. Cystoscopy, Laparoscopic chait tube placement, ileocystoplasty. Reason For Admission: Above procedure Hospital Course: 1. Pete was admitted for a bowel prep the day prior to surgery. He underwent the above procedure without complication. He did well after surgery and was able to walk on his own, eat a regular diet and take pain pills prior to discharge. His urine cultures growing Klebsi nesha and E coli, which were sensitive to cipro and he was sent home on a course of antibioti cs. He will start prophylactic antibiotics after he is done with the ciprofloxacin. He efren l also start on daily Miralax to help keep his bowels functioning regularly. Current Discharge Medication List START taking these medications Details ciprofloxacin 500 mg Oral Tablet Take 1 Tab by mouth two times daily for 6 days. Qty: 12 Tab, Refills: 0 oxyCODONE, immediate release, 5 mg Oral Tablet Take 1-2 Tabs by mouth every six hours as ne eded for severe pain. Qty: 50 Tab, Refills: 0 polyethylene glycol 17 gram/dose Oral Powder Take 17 g by mouth once daily. Qty: 119 g, Refills: 4 trimethoprim-sulfamethoxazole 80-400 mg Oral Tablet Take 1 Tab by mouth once daily. Begin t aking once you have completed the prescription of ciprofloxacin. Qty: 90 Tab, Refills: 4 CONTINUE these medications which have CHANGED or have new prescriptions Details oxybutynin 5 mg Oral Tablet Take 1 Tab by mouth three times daily as needed. CONTINUE these medications which have NOT CHANGED Details CATHETER Misc 1 Units by Intravesical route. Self-Cath Straight Tip 14 fr, 16 inches for fo r intermittent catheterization program to manage neurogenic bladder (596.54). Do this 5 time s daily. from 10/02/2010 Qty: 150 Each, Refills: 11 Associated Diagnoses: Spina bifida without mention of hydrocephalus, lumbar region; Neurog enic bladder, NOS DIAPER,BRIEF, ADULT,DISPOSABLE Misc 1 Units by Does not apply route. Please provide pull-up continence diaper, small men's size for management of neurogenic bladder, bowel (596.54, 56 4.81). Qty: 192 Units, Refills: 11 Associated Diagnoses: Spina bifida without mention of hydrocephalus, lumbar region; Neurog enic bladder, NOS; Neurogenic bowel Diet Regular - Adult Activity Restrictions: avoid lifting greater than 10 lbs for the next 3 weeks until your wound heals . Be sure to minimize rough housing as well until otherwise instructed by Dr. Douglas. Continue twice daily irrigation of both your Suprapubic tube and urethral catheter Washington catheter instructions: What is it? A Washington catheter is a thin rubber tube which is put into your bladder (organ th at holds urine). It is used to drain urine out of your body. A Washington catheter is also called an "indwelling catheter". After the catheter is inserted, its tiny tip can be inflated (sofia led) with sterile (clean) water to make a small balloon. The balloon holds the Washington in plac e and keeps it from slipping out of your bladder. A Washington catheter can stay in the bladder f or a short or long time. Daily Care: Follow these steps every day. These will help prevent a bladder or kidney infec tion and will keep you more comfortable. Always wash your hands before and after doing catheter care. Use soap and warm water. Keep your skin and catheter clean. Clean the skin around your catheter at least once each d ay. Clean your skin area and catheter after every bowel movement. Always keep your urine bag below the level of your bladder. This is at about the level of y our waist. Keeping the bag below this level will prevent urine from flowing back into your b ladder from the tubing and urine bag. Backflow of urine can cause an infection. Wear cotton underwear. This will allow good air flow and drying in your genital area. Drink plenty of liquids. Follow your caregiver's advice if you must change the amount of l iquid you drink. Try to drink enough liquid each day, and not just when you feel thirsty. Do not tug or pull on the tubing. This can cause bleeding and hurt your urethra. Do not iesha p on the tubing when walking. Hold the tubing curled in your hand with the urine bag below y our bladder when walking. You may also want to clip or pin the tubing to your clothing. Place the catheter tubing so it does not kink or loop. When getting into bed, hang the urin e bag beside the bed. Make sure the bag is below the level of your bladder. If you use movab le bed rails, do not hand the urine bag on the bed rail. Hang the bag on the frame of the be d instead. Caring for your Washington or leg drainage bag: Catheters are made to be closed drainage systems. This means that the path from the tip of the catheter inserted into the bladder, to the bag which catches urine, is closed. A closed system decreases the chance of getting an infection. It also decreases the chance of the cat heter breaking and urine spilling out. People with catheters and their caregivers should mariel id detaching parts of the catheter along the closed system unless it is necessary. Larger, sterile, drainable, two liter drainage bags or smaller sterile leg bags are used to collect your urine. To keep a closed system, these bags are connected directly to the constantin ter. If you use a leg bag to collect urine, a larger drainage bag may be attached at night w ith a special connector. Some plastic drainage bags should be changed every 5 to 7 days. Ask your caregiver how often your drainage bag should be changed. Drainage bags must be kept below the level of the bladder. This will allow gravity to help drain the urine, and will stop urine from flowing back into your bladder. Urine that flows b ack into your bladder increases your risk of an infection. Do not let the drainage bag rest on or touch the floor. The tubing that goes from your urethra to a leg bag should be secured to your thigh with special tape, a leg strap, or a drain tube stabilizer. Allow extra tubin g between the urethra and the point where the tubing is secured to your thigh. Emptying your Washington or leg drainage bag: A drainage bag should be emptied only when it is f ull enough that this is needed. Empty full-sized bags every eight hours, and smaller (leg) b ags every 3 to 4 hours, or when they are full. The following are steps to be used when empty ing your drainage bag: Place a large plastic or metal container on the floor next to you, or you may empty the uri ne into the toilet. Wash your hands with soap and water. Without touching its tip, remove the drain spout from its sleeve at the bottom of the urine bag. Open the slide valve on the spout. Let the urine flow out of the urine bag into the container or toilet. Do not let the draina ge tube touch anything. When the bag is empty, clean the end of the drain spout with water and tissue. Close the sl joanne valve and put the drain spout into its sleeve at the bottom of the urine bag. Wash your hands with soap and water. Write down how much urine was in your bag if caregivers have asked you to keep a record. Reconnecting your Washington or leg drainage bag: Wash your hands with soap and water. Use alcohol or another solution suggested by your caregiver to clean the catheter and drain age bag ends. Attach them back together. Wash your hands with soap and water. Fixing catheter problems: If your catheter is not draining: Check for kinks. See if the urine tubing is twisted or bent. See if you are lying on the catheter or tubing. Make sure the urine bag is below the level of your bladder (waist level). Irrigate (flush) the catheter if you have been taught how to irrigate catheters. If your catheter comes out or is leaking: Place a towel or waterproof pad under you to protect your furniture if your catheter leaks or comes out. Do not try to put the catheter back in unless you hav]e been taught how to ins ert a Washington catheter. Look for these signs of leaking: The level of urine in the bag has stopped rising, and no urine has drained from the cathete r in 6 to 8 hours. Your bed or clothes are wet with urine. Call your caregiver if: You cannot get your catheter to drain urine into the bag. Your catheter comes out or it is leaking. Your urine is thick and cloudy. Your urine has mucus, red specks, or blood in it. Urine wit h blood in it may appear pink or red. Your urine has a strong (bad) smell. No urine has drained from your catheter in 6 to 8 hours. You have pain or burning in your urethra, bladder, abdomen, or lower back. You have shaking chills or your temperature is over 101 F (38.3 C). Destination: Destination: Home Condition on Discharge Good Other Discharge Orders and Instructions Pt will follow up with Dr. Douglas in approx 3 weeks. Outstanding labs/studies: chait tube evaluation in one week Discharging Physician: LB LUO MD Attending Physician: Justice [place] MD documented in this en counter Discharge Instructions Instructions Sridevi Cerda - 07/03/2011Patient Education Materials: CareNothamlet rodas on caring for suprapubic catheter Additional Instructions: Reviewed with pt's mom how to irrigate both SP and washing[place] catheter. Reviewed signs and symptoms of urinary tract infections (fever, chills, abdominal or back pain, changes in urine) and when to call doctor. Discharge Nurse: Sridevi Cerda Date: 07/03/2011 Discharge Time: 8:44 AM documented in this encounter Medications at Time of Discharge + + + +---------+ + + | Medication | Sig | Dispensed | Refills | Start | End Date | | | | | | Date | | + + + +---------+ + + | ciprofloxacin 500 | Take 1 Tab by mouth | 11 Tab | 0 | 07/03/20 | | | mg Oral Tablet | two times daily for | | | 11 | 1 | | | 6 days. | | | | | + + + +---------+ + + documented as of this encounter Progress Notes Lb Luo MD - 07/02/2011 7:26 AM PDT UROLOGY INPATIENT PROGRESS NOTE: Author; LB LUO MD Attending Physician: Justice [place] MD Interval Hx: BM after fleets last night, abdominal pain improved. UOP mild decrease to 20-30cc/hr over past 2 hours, improved with irrigation. Nausea resolved, no fevers or chills. oob to [place]. david removed. Objective: Last Vitals: BP 118/64 | Pulse 49 | Temp 36.9 C (98.4 F) | RR 14 | Ht 172.7 cm (5' 8") | Wt 56.2 kg (123 lb 14.4 oz) | SpO2 100% | BMI 18.84 kg/(m^2) 24 Hour Vital Min/Max: Systolic (24hrs), Av mmHg, Min:115 mmHg, Max:131 mmHg Diastolic (24hrs), Av mmHg, Min:53 mmHg, Max:79 mmHg Pulse Av.9 Min: 46 Max: 75 Temp Av.7 C (98 F) Min: 36.4 C (97.6 F) Max: 36.9 C (98.4 F) Resp Av.7 Min: 8 Max: 21 SpO2 Av.4 % Min: 99 % Max: 100 % Intake/Output: Date 07/01/11 07 - 07/02/11 0659 07/02/11 07 - 07/03/11 0659 Shift 4533-5166 6088-2224 3442-1553 Daily Total 9696-7065 6796-5299 5207-7273 Daily Total I N T A K E P.O. 300 60 360 I.V. 10 398.1 753.23 1161.33 Other 30 30 120 180 Shift Total 340 488.1 873.23 1701.33 O U T P U T Urine 335 993 864 8320 I/O Urinary Drain Output (Urinary Cath Placement Suprapubic) 255 232 363 9094 I/O Urinary Drain Output (Urinary Cath Placement urethral [place]) 80 245 108 433 Drains 25 25 Wound Drain Output (Drains (wounds/surgical) DAVID) 25 25 Other Stool 2 2 Shift Total 360 753 400 6592 NET -20 -271.9 454.23 162.33 Physical Exam: General: Alert, no acute distress Respiratory: Lungs clear to auscultation bilaterally, symmetric Abdomen: Soft, nontender, nondistended, incision clean dry and intact, SP in place. +BS : Washington in place with clear urine occ mucous Extremities: Warm and well perfused, no edema Medications: acetaminophen (aka TYLENOL) suppository 650 mg, 650 mg, Rectal, Q6H PRN acetaminophen (aka TYLENOL) tablet 325-650 mg, 325-650 mg, Oral, Q4H PRN bisacodyl (aka DULCOLAX) suppository 1 0 mg, 10 mg, Rectal, DAILY PRN ciprofloxacin (aka CIPRO) tablet 500 mg, 500 mg, Oral, BID de xtrose 5%-NaCl 0.45%-KCl 20 mEq/L IV, , Intravenous, CONTINUOUS diphenhydrAMINE (aka BENADRY L) injection 12.5-25 mg, 12.5-25 mg, Intravenous, Q6H PRN ibuprofen (aka MOTRIN) tablet 600 mg, 600 mg, Oral, Q6H PRN lidocaine (aka LMX 4) 4 % cream , , Topical, PRN ondansetron (aka ZOFRAN) injection 4 mg, 4 mg, Intravenous, Q12H PRN oxybut ynin (aka DITROPAN) tablet 5 mg, 5 mg, Oral, TID PRN oxyCODONE immediate release (aka ROXICO DONE) tablet 5-10 mg, 5-10 mg, Oral, Q3H PRN polyethylene glycol (aka MIRALAX) powder 17 g, 17 g, Oral, DAILY promethazine (aka PHENERGAN) injection 6.25 mg, 6.25 mg, Intravenous, Q6H PRN Cultures: CULTURE RESULT (no units) Date Value Range Status 06/30/2011 Corrected Value: Urine Culture Source...............: Washington Cath Urine Culture: Final Report: No growth (< 1,000 col/ml) after 24 hours Final Report Resulted: 07/01/11 [facility] ([facility]) [facility] [address] [place] [address] Assessment and Plan: POD #5 s/p ileocystoplasty, chait tube - full liquids for now, will d/w staff options for regular diet today - cont ivf for now, follow up, enc po intake - teach pt and family tube irrigation and provide discharge supplies - oob tid to [place] today - anticipate d/c home once tolerating regular diet and bowel function normalized. - holding on chait irrigations until ok'd by Gen Surg (likely outpatient) MD Jacoby Simpson MD Resident - R[facility] Division of Urology Pager #[phone] Dave Mendiola MD - 07/01/2011 4:32 PM PDTI have reviewed and discussed with the patient their hospital cour se and present management. I have examined the patient and I have discussed with Dr. Luo the patients present problem and plan of treatment. We reviewed the assessment and plan an d I agree with the plan as outlined. I have reviewed the resident progress note, entered my findings, and agree with the above documentation. Lb Ramirez MD - 07/01/2011 8:17 AM PDT UROLOGY INPATIENT PROGRESS NOTE: Author; LB LUO MD Attending Physician: Justice [place] MD Interval Hx: oob again yesterday with flatus. No bm. ruben po, no n/v, f/c. Pain controlled with pills. Objective: Last Vitals: BP 111/70 | Pulse 51 | Temp 36.7 C (98.1 F) | RR 13 | Ht 172.7 cm (5' 8") | Wt 56.2 kg (123 lb 14.4 oz) | SpO2 98% | BMI 18.84 kg/(m^2) 24 Hour Vital Min/Max: Systolic (24hrs), Av mmHg, Min:111 mmHg, Max:137 mmHg Diastolic (24hrs), Av mmHg, Min:70 mmHg, Max:81 mmHg Pulse Av.8 Min: 51 Max: 88 Temp Av.7 C (98 F) Min: 36.6 C (97.9 F) Max: 36.7 C (98.1 F) Resp Av.2 Min: 12 Max: 16 SpO2 Av.2 % Min: 97 % Max: 100 % Intake/Output: Date 06/30/11 07 - 07/01/11 0659 07/01/11 07 - 07/02/11 0659 Shift 2088-3040 7504-3381 6663-1145 Daily Total 9890-2392 8184-5158 3358-0959 Daily Total I N T A K E P.O. 390 180 570 I.V. 1265 5 55 1325 Other 30 20 50 Shift Total 1685 988 44 4338 O U T P U T Urine 770 1934 122 7953 I/O Urinary Drain Output (Urinary Cath Placement Suprapubic) 700 6559 280 1441 I/O Urinary Drain Output (Urinary Cath Placement urethral [place]) 70 145 35 250 Drains 35 27 53 115 Wound Drain Output (Drains (wounds/surgical) ) 35 27 53 115 Shift Total 809 [id number] 926 0963 [facility] [phone] Physical Exam: General: Alert, no acute distress Respiratory: Lungs clear to auscultation bilaterally, symmetric Abdomen: Soft, nontender, mildly distended, incision clean dry and intact, +BS SP tube in place, DAVID ss : [place] in place with clear urine Extremities: Warm and well perfused, no edema Medications: acetaminophen (aka TYLENOL) suppository 650 mg, 650 mg, Rectal, Q6H PRN acetaminophen (aka TYLENOL) tablet 325-650 mg, 325-650 mg, Oral, Q4H PRN ciprofloxacin (aka CIPRO) tablet 500 m g, 500 mg, Oral, BID diphenhydrAMINE (aka BENADRYL) injection 12.5-25 mg, 12.5-25 mg, Intrav enous, Q6H PRN ibuprofen (aka MOTRIN) tablet 600 mg, 600 mg, Oral, Q6H PRN ketorolac (aka TO RADOL) injection 30 mg, 30 mg, Intravenous, Q6H PRN lidocaine (aka LMX 4) 4 % cream, , Topical, PRN ondansetron (aka ZOFRAN) injection 4 mg, 4 mg, Intravenous, Q12H PRN oxybutynin (aka DITROPAN) tablet 5 mg, 5 mg, Oral, TID PRN oxyCODO NE immediate release (aka ROXICODONE) tablet 5-10 mg, 5-10 mg, Oral, Q3H PRN polyethylene gl ycol (aka MIRALAX) powder 17 g, 17 g, Oral, DAILY promethazine (aka PHENERGAN) injection 6.2 5 mg, 6.25 mg, Intravenous, Q6H PRN Cultures: CULTURE RESULT (no units) Date Value Range Status 06/26/2011 Corrected Value: Urine Culture Source...............: Clean catch Culture: > 100,000 col/ml Klebsiella pneumoniae Final ID > 100,000 col/ml Enterococcus species Final ID K. pneumo ISABEL Ampicillin R S Amp/Sulbactam S Cefazolin S Ciprofloxacin S S Gentamicin S Nitrofurantoin R S Tetracycline R Tobramycin S Trimeth/Sulfa S Vancomycin S Final Report Resulted: 06/29/11 [facility] ([facility]) [facility] [place] [address] [place] [address] Assessment and Plan: POD #4 s/p ileocystoplasty, chait - SLIV - enc oob - cont miralax, prn enema, await bowel movement - cont cipro for total 10 days, then restart prophylaxis. Lb Luo MD eckler, Lb Qureshi MD - 06/30/2011 10:53 AM PDT . UROLOGY INPATIENT PROGRESS NOTE: Author; LB LUO MD Attending Physician: Justice Douglas MD Interval Hx: +flatus yesterday, oob to hallway. 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 No n/v, no f/c. ruben clears. Objective: Last Vitals: BP 121/65 | Pulse 80 | Temp 37 C (98.6 F) | RR 20 | Ht 172.7 cm (5' 8") | Wt 56.2 kg (123 lb 14.4 oz) | SpO2 98% | BMI 18.84 kg/(m^2) 24 Hour Vital Min/Max: Systolic (24hrs), Av mmHg, Min:91 mmHg, Max:121 mmHg Diastolic (24hrs), Av mmHg, Min:38 mmHg, Max:65 mmHg Pulse Av.3 Min: 57 Max: 83 Temp Av.7 C (98.1 F) Min: 36.6 C (97.8 F) Max: 37 C (98.6 F) Resp Av.2 Min: 9 Max: 20 SpO2 Av.3 % Min: 94 % Max: 99 % Intake/Output: Date 06/29/11699 - 06/30/1165806/30/11699 - 07/01/11658 Shift 7530-7204 8976-3366 0476-8782 Daily Total 3874-2754 5344-3164 6968-5596 Daily Total I N T A K E P.O. 330 390 720 30 30 I.V. 965 590.2 1555.2 960 960 Shift Total 1295 980.2 2275.2 990 990 O U T P U T Urine 590 4492 799 5432 270 270 I/O Urinary Drain Output (Urinary Cath Placement Suprapubic) 125 238 616 7940 250 250 I/O Urinary Drain Output (Urinary Cath Placement urethral [place]) 465 180 300 945 20 2 0 Drains 54 49 75 178 15 15 Wound Drain Output (Drains (wounds/surgical) DAVID) 54 49 75 178 15 15 Shift Total 644 7668 635 1995 285 285 NET 651 -123.8 -675 -147.8 706 265 Physical Exam: General: Alert, no acute distress Respiratory: Lungs clear to auscultation bilaterally, symmetric Abdomen: Soft, nontender, nondistended, incision clean dry and intact, SP and DAVID in place. : [place] in place with clear urine Extremities: Warm and well perfused, no edema Medications: acetaminophen (aka TYLENOL) suppository 650 mg, 650 mg, Rectal, Q6H PRN acetaminophen (aka TYLENOL) tablet 325-650 mg, 325-650 mg, Oral, Q4H PRN ceFAZolin (aka ANCEF) injection 1 g, 1 g, Intravenous, Q8H dextrose 5%-NaCl 0.45%-KCl 20 mEq/L IV infusion, 50 mL/hr, Intravenous, CONTINUOUS diphenhydrAMINE (aka BENADRYL) injection 12.5-25 mg, 12.5-25 mg, Intravenous, Q6 H PRN HYDROmorphone (aka DILAUDID) injection 0.2-0.5 mg, 0.2-0.5 mg, Intravenous, Q2H PRN HYDROmo rphone 25 mg in bacteriostatic NaCl 0.9% 50 mL TEAROOM HOST/HOSTESS infusion, , Intravenous, CONTINUOUS ibupr ofen (aka MOTRIN) tablet 600 mg, 600 mg, Oral, Q6H PRN ketorolac (aka TORADOL) injection 30 mg, 30 mg, Intravenous, Q6H PRN lidocaine (aka LMX 4) 4 % cream, , Topical, PRN ondansetron (aka ZOFRAN) injection 4 mg, 4 mg, Intravenous, Q12H PRN oxybutynin (aka DITROPAN) tablet 5 mg, 5 mg, Oral, TID PRN oxyCODONE immediate release (aka ROXICODONE) tablet 5-10 mg, 5-10 mg, Oral, Q3H PRN polyethylene glycol (aka MIRALAX) powder 17 g, 17 g, Oral, DAILY promethazine (aka PHENERGAN) injection 6.25 mg, 6.25 mg, Intravenou s, Q6H PRN ranitidine (aka ZANTAC) IV 50 mg, 50 mg, Intravenous, Q8H Labs: Chemistries: Last 72 Hours (or 3 results): Recent Labs Basename 06/28/11 0728 NA 137 K 4.2 CL 99 BICARB 31* BUN 4* CR 0.64 GLU 94 CA 8.5* MG -- PO4 -- Lab Results Lab Test Name Results Date/Time WBC 8.1 06/28/11 HB 13.3 06/28/11 HCT 38.0 06/28/11 PLT 203 06/28/11 MCV 88.7 06/28/11 RDW 12.6 06/28/11 No components found with this basename: inr Cultures: CULTURE RESULT (no units) Date Value Range Status 06/26/2011 Corrected Value: Urine Culture Source...............: Clean catch Culture: > 100,000 col/ml Klebsiella pneumoniae Final ID > 100,000 col/ml Enterococcus species Final ID K. pneumo ISABEL Ampicillin R S Amp/Sulbactam S Cefazolin S Ciprofloxacin S S Gentamicin S Nitrofurantoin R S Tetracycline R Tobramycin S Trimeth/Sulfa S Vancomycin S Final Report Resulted: 06/29/11 [facility] ([facility]) [facility] [place] [address] [place] [address] Assessment and Plan: POD #3 s/p augment cystoplasty with chait tube - start daily miralax - full liquid diet today - decrease IVF - enc oob activity - d/c DAVID drain - redraw urine cultures, then start cipro. Lb Luo MD Aditya Lacy MD - 06/29/2011 11:08 AM PDT UROLOGY DAILY PROGRESS NOTE SUBJECTIVE: ROSA overnight. Tolerating ice chips without nausea or vomiting. Passing small amounts of fl atus. No BM. OOB to halls. MEDICATIONS: Medications were reviewed, and a full list of active medications is available via [employer] unde r: Patient Chart -> Orders Piercer -> Orders -> Medications. PHYSICAL EXAM and DIAGNOSTIC DATA: Last Vitals: Ht 172.7 cm (5' 8") (54 %ile), Wt 56.2 kg (123 lbs 14.4 oz) (40 %ile), Weight for age(%) 39.72%, BMI for age(%) 28.94%, Length for age(%) 53.32%, BP 88/49, Pulse 85, T emperature 36.7 C (98.1 F), RR 9, SpO2 100%, BMI 18.84 kg/(m^2). 24 Hour Vital Min/Max: Temp Av.2 C (99 F) Min: 36.7 C (98.1 F) Max: 37.9 C (100.3 F) Pulse Av.1 Min: 66 Max: 131 Systolic (24hrs), Av mmHg, Min:88 mmHg, Max:146 mmHgDiastolic (24hrs), Av mmHg, Mi n:38 mmHg, Max:68 mmHgResp Av.4 Min: 9 Max: 14 SpO2 Av.7 % Min: 91 % Max: 100 % INs & OUTs: Intake/Output Summary (Last 24 hours) at 06/29/11 1108 Last data filed at 06/29/11 0900 Gross per 24 hour Intake 2631.15 ml Output 2050 ml Net 581.15 ml Suprapubic- 1600cc light red, no clots Urethral washington- 278cc light pink DAVID- 70cc serosang EXAM General: Well appearing, in no apparent distress Respiratory: CTA B. No W/R/R Cardiovascular: RRR Abdominal: Soft, non-tender, non-distended, lower midline incision C/D/I. Drain sites dres sed and intact Extremities: Moving all extremities DIAGNOSTIC DATA Chemistries: Last 72 Hours (or 3 results): Recent Labs Basename 06/28/11 0728 NA 137 K 4.2 CL 99 BICARB 31* BUN 4* CR 0.64 GLU 94 CA 8.5* MG -- PO4 -- CBC last 72 hours (or 3 results) Recent Labs Basename 06/28/11 0728 WBC 8.1 HB 13.3 HCT 38.0 PLT 203 ASSESSMENT & PLAN: POD# 2 s/p chait tube and augmentation ileocystoplasty. He has good catheter drainage and g ood uop. Drain is not concerning for bleeding. Plan: 1. Continue drains and tubes 2. OOB to hallways today 3. Con't TEAROOM HOST/HOSTESS for pain control 4. Would advance to sips of clears today, NTE 400cc per shift 5. Consider beginning low volume hand irrigation tomorrow, performed by urology team only. 6. Transition to cefazolin in AM. Last dose of ceftriaxone today. Jag Johnson MD Urology resident hato Benavides MD - 0 06/28/2011 7:48 AM PDT INPATIENT PROGRESS NOTE Attending Physician: CHATO BENAVIDES MD Events last 24: Post-operative day 1 from ileocystoplasy and laparoscopic chait tube placement. Subjective: Had pain at a 9 out of 10 over night. Had nausea but no emesis. Is hungry and t hirsty. Has not gotten out of bed or sat up. No flatus but he does feel his stomach "grumbli ng". No eructations either. Physical Exam: Last Vitals: BP 125/63 | Pulse 80 | Temp 37 C (98.6 F) | RR 13 | Ht 172.7 cm (5' 8") | Wt 56.2 kg (123 lb 14.4 oz) | SpO2 97% | BMI 18.84 kg/(m^2) 24 Hour Vital Min/Max: Systolic (24hrs), Av mmHg, Min:103 mmHg, Max:149 mmHg Diastolic (24hrs), Av mmHg, Min:40 mmHg, Max:99 mmHg Pulse Av.9 Min: 68 Max: 89 Temp Av.1 C (98.7 F) Min: 36.8 C (98.2 F) Max: 37.3 C (99.1 F) Resp Av.2 Min: 9 Max: 20 SpO2 Av.9 % Min: 95 % Max: 100 % Intake/Output Summary (Last 24 hours) at 06/28/11 0748 Last data filed at 06/28/11 0600 Gross per 24 hour Intake 3845 ml Output 2767 ml Net 1078 ml Drain: 26ml last 8 hours Uop : washington 210 last 8 hours and suprapubic tube 455 last 8 hrs. Light pink in both. No darrius ts. General appearance: in no apparent distress, oriented times 3, afebrile, cooperative and we ll hydrated. Chest::no tachypnea, retractions or cyanosis, extremities warm and well perfused. Abdominal exam: soft, no distension, tender to palpation mildly and incision is clean and i ntact. Drain sites are dressed and intact with no leakage. Genital exam reveals catheter in place and penis without swelling or edema. Labs: Pending. Procedure on 01/17/2011 Component Date Value COLOR (UA DIP), POC 01/17/2011 yellow APPEARANCE (UA DIP), POC 01/17/2011 sl cloudy LEUKOCYTES (UA DIP), POC 01/17/2011 neg NITRITES (UA DIP), POC 01/17/2011 neg UROBILINOGEN (UA DIP), P* 01/17/2011 0.2 PROTEIN (UA DIP), POC 01/17/2011 neg PH (UA DIP), POC 01/17/2011 6.0 BLOOD (UA DIP), POC 01/17/2011 neg SPECIFIC GRAVITY (UA DIP* 01/17/2011 1.020 KETONES (UA DIP), POC 01/17/2011 neg BILIRUBIN (UA DIP), POC 01/17/2011 neg GLUCOSE (UA DIP), POC 01/17/2011 neg Assessment and Plan: Post-operative day 1 from chait tube and augmentation ileocystoplasty. He has good catheter drainage and good uop. Drain is not concerning for bleeding. Plan: 1. Continue drains and tubes 2. Sit up in bed today and consider oob if possible today and if not tomorrow 3. Increase pain dose per TEAROOM HOST/HOSTESS press 4. Ice chips for diet 5. Follow up on labs. If okay then no need for recheck until Thursday at the earliest. 6. Would not start hand irrigation yet. CHATO BENAVIDES MD [place] [phone] [address] [facility] - 8:53 PM PDTI have seen and examined this patient and agree with the excellent resi dent note assessment and plan Ivis Valdez Md - 10/2011 8:53 PM PDT INPATIENT PEDIATRIC SURGERY PROGRESS NOTE 06/28/2011 Author: IVIS CHO MD Attending: Justice Douglas MD Pete Orozco is a 15 year old male, currently POD 1 s/p chait cecostomy placement a s well as bladder augmentation by Urology. Interval Hx: Patient reports mild, easily controlled pain diffusely in his abdomen. Has n ot passed gas or stool. Patient and patient's mother have no new complaints or concerns. PHYSICAL EXAM: Last entered Vitals Ht 172.7 cm (5' 8") (54 %ile), Wt 56.2 kg (123 lbs 14.4 oz) (40 %ile), Weight for age(%) 3 9.72%, BMI for age(%) 28.94%, Length for age(%) 53.32%, BP 125/63, Pulse 80, Temperature 3 7 C (98.6 F), RR 13, SpO2 97%, BMI 18.84 kg/(m^2). Vital Sign Range Temp Av.9 C (98.5 F) Min: 36.5 C (97.7 F) Max: 37.3 C (99.1 F) Pulse Av.6 Min: 49 Max: 89 Resp Av.6 Min: 9 Max: 20 Systolic (24hrs), Av mmHg, Min:93 mmHg, Max:149 mmHg Diastolic (24hrs), Av mmHg, Min:41 mmHg, Max:99 mmHg SpO2 Av.3 % Min: 95 % Max: 100 % I/O Summary Intake/Output Summary (Last 24 hours) at 06/27/112052 Last data filed at 06/27/11 1835 Gross per 24 hour Intake 6105 ml Output 1505 ml Net 4600 ml Detail Urine Output 1.52cc/kg/hr Tube output: 151 per DAVID General Appearance: NAD, AAOx3 Respiratory: CTA b/l, not using accessory muscles Cardiovascular: RRR, no murmurs Gastrointestinal: soft, non-tender, non-distended, chait site C/D/I Neurologic: grossly intact Extremities: warm and well perfused Medications Current Inpatient Medications Medication Dose Route Frequency acetaminophen (aka TYLENOL) suppository 650 mg 650 mg Rectal Q6H PRN acetaminophen (aka TYLENOL) tablet 325-650 mg 325-650 mg Oral Q4H PRN cefTRIAXone (aka ROCEPHIN) IV 2 g 2 g Intravenous Q24H dextrose 5%-NaCl 0.45%-KCl 20 mEq/L IV infusion 125 mL/hr Intravenous CONTINUOUS diphenhydrAMINE (aka BENADRYL) injection 12.5-25 mg 12.5-25 mg Intravenous Q6H PRN HYDROmorphone 25 mg in bacteriostatic NaCl 0.9% 50 mL TEAROOM HOST/HOSTESS infusion Intravenous CONTIN UOUS ibuprofen (aka ADVIL,MOTRIN) suspension 560 mg 560 mg Oral Q6H PRN ketorolac (aka TORADOL) injection 30 mg 30 mg Intravenous Q6H PRN lidocaine (aka LMX 4) 4 % cream Topical PRN ondansetron (aka ZOFRAN) injection 4 mg 4 mg Intravenous Q12H PRN oxybutynin (aka DITROPAN) tablet 5 mg 5 mg Oral TID PRN promethazine (aka PHENERGAN) injection 6.25 mg 6.25 mg Intravenous Q6H PRN ranitidine (aka ZANTAC) IV 50 mg 50 mg Intravenous Q8H LAB DATA: Lab Results Component Value Date WBC 6.5 06/26/2011 HB 15.3 06/26/2011 HCT 42.1 06/26/2011 PLT 232 06/26/2011 MCV 86.3 06/26/2011 RDW 12.9 06/26/2011 Lab Results Component Value Date NA 136 06/26/2011 K 4.2 06/26/2011 CL 102 06/26/2011 BICARB 27 06/26/2011 BUN 11 06/26/2011 CR 0.57 06/26/2011 GLU 91 06/26/2011 CA 9.3 06/26/2011 ASSESSMENT: Pete Orozco is a 15 y.o. on POD#1 s/p chait cecostomy. PLAN: * Patient recovering well * Advance diet and in-patient care as per urology * Keep dressing over chait * F/U with [facility], obtain an appointment in Pediatric Surgery and tube study for 1 wk from liliana pfeiffer ([phone]) * Pedatric Gen Surg signing off at this time Diagnostic data, case and plan discussed with the Pediatric Surgery Attending of the day. P casey subject to change pending clinical status. Ivis Cho MD General Surgery, R1 Pager: [phone] Date: June 27, 2011 Justice Maddox MD - 12:06 PM PDTPEDIATRIC UROLOGY OPERATIVE NOTE Patient: Pete Orozco CSN:[id number] Date: 06/27/2011 12:06 PM Attending Physician: Naty Douglas MD Assistants: Terrence Pardo MD, Lb Luo MD. Prior to the beginning of the procedure the team paused to verify the patient's identity, a s well as the procedure to be performed and the correct side/site. All equipment required w as ready and available. The patient was positioned appropriately. Preoperative Diagnosis: LipoMMC, Neurogenic bladder, High pressure poorly compliant bladder . Bowel and bladder incontinence Postoperative Diagnosis: Same Procedure Performed: Cystoscopy Bladder Augmentation (Ileocystoplasty with 30 cm small bowel) Anesthesia: General Estimated Blood Loss: minimal Specimens: None Complications: none Drains: none Disposition: To RR in satisfactory condition. Findings: Severely trabeculated NGB Naty Douglas MD, FAAP, FACS call or contact centre operator Pediatric Urology Courtney Anne, Ivis Hinson - 06/27/2011 7:13 AM PDT INPATIENT PEDIATRIC SURGERY PROGRESS NOTE 06/27/2011 Author: IVIS CHO MD Attending: Justice Douglas MD Pete Orozco is a 15 year 6 month old male, currently scheduled for chait cecostom y today. Interval Hx: Bowel prep completed as per urology recs. Consent for cecostomy obtained fro m mother. PHYSICAL EXAM: Last entered Vitals Ht 172.7 cm (5' 8") (54 %ile), Wt 56.2 kg (123 lbs 14.4 oz) (40 %ile), Weight for age(%) 3 9.72%, BMI for age(%) 28.94%, Length for age(%) 53.32%, BP 93/41, Pulse 66, Temperature 36 .6 C (97.9 F), RR 16, SpO2 99%, BMI 18.84 kg/(m^2). Vital Sign Range Temp Av.6 C (97.9 F) Min: 36.5 C (97.7 F) Max: 36.7 C (98.1 F) Pulse Av.2 Min: 49 Max: 66 Resp Av.7 Min: 16 Max: 18 Systolic (24hrs), Av mmHg, Min:93 mmHg, Max:139 mmHg Diastolic (24hrs), Av mmHg, Min:41 mmHg, Max:70 mmHg SpO2 Av.7 % Min: 99 % Max: 100 % I/O Summary Intake/Output Summary (Last 24 hours) at 06/27/11 0713 Last data filed at 06/27/11 0600 Gross per 24 hour Intake 15033 ml Output 975 ml Net 9557 ml General Appearance: NAD, AAOx3 Respiratory: CTA b/l Cardiovascular: RRR, no murmurs Gastrointestinal: soft, nt/nd Neurologic: grossly intact Medications Current Inpatient Medications Medication Dose Route Frequency cefTRIAXone (aka ROCEPHIN) IV 2 g 2 g Intravenous Q24H dextrose 5%-NaCl 0.45%-KCl 20 mEq/L IV infusion 125 mL/hr Intravenous CONTINUOUS diphenhydrAMINE (aka BENADRYL) injection 12.5-25 mg 12.5-25 mg Intravenous Q6H PRN LORazepam (aka ATIVAN) injection 0.5-1 mg 0.5-1 mg Intravenous Q6H PRN ondansetron (aka ZOFRAN) injection 4 mg 4 mg Intravenous Q12H PRN oxybutynin (aka DITROPAN) tablet 5 mg 5 mg Oral TID peg-electrolyte (aka GOLYTELY) liquid 25 mL/kg/hr Oral PRN promethazine (aka PHENERGAN) injection 6.25 mg 6.25 mg Intravenous Q6H PRN LAB DATA: Lab Results Component Value Date WBC 6.5 06/26/2011 HB 15.3 06/26/2011 HCT 42.1 06/26/2011 PLT 232 06/26/2011 MCV 86.3 06/26/2011 RDW 12.9 06/26/2011 Lab Results Component Value Date NA 136 06/26/2011 K 4.2 06/26/2011 CL 102 06/26/2011 BICARB 27 06/26/2011 BUN 11 06/26/2011 CR 0.57 06/26/2011 GLU 91 06/26/2011 CA 9.3 06/26/2011 ASSESSMENT/PLAN: Pete Orozco is a 15 y.o. boy with CP, neurogenic bowel and bladder who is scheduled for chait cecostomy today. Patient understands goals of the procedure, discussed risks and benefits with mother and answered all questions. Diagnostic data, case and plan discussed with the Pediatric Surgery Attending of the day. P casey subject to change pending clinical status. Ivis Cho MD General Surgery, R1 Pager: [phone] Date: June 27, 2011 documented in this encounter Plan of Treatment Not on filedocumented as of this encounter Procedures + +--------+ + + + | Procedure Name | Priori | Date/Time | Associated Diagnosis | Comments | | | ty | | | | + +--------+ + + + | PROCEDURE NOTE | Routin | 12/21/2015 | | Results for this | | | e | 5:50 AM | | procedure are in the | | | | PST | | results section. | + +--------+ + + + | OPERATION RECORD | | 07/06/2011 | | Results for this | | | | 4:07 PM | | procedure are in the | | | | PDT | | results section. | + +--------+ + + + | CULTURE, URINE BACTI | Urgent | 06/30/2011 | | Results for this | | | | 1:03 PM | | procedure are in the | | | | PDT | | results section. | + +--------+ + + + | BASIC METABOLIC SET | Routin | 06/28/2011 | | Results for this | | (NA, K, CL, TCO2, | e | 7:28 AM | | procedure are in the | | BUN, CR, GLU, CA) | | PDT | | results section. | + +--------+ + + + | CBC ONLY | Routin | 06/28/2011 | | Results for this | | | e | 7:28 AM | | procedure are in the | | | | PDT | | results section. | + +--------+ + + + | ANESTHESIA/SEDATION | | 06/27/2011 | | Results for this | | | | 12:00 AM | | procedure are in the | | | | PDT | | results section. | + +--------+ + + + | ANESTHESIA/SEDATION | | 06/27/2011 | | Results for this | | | | 12:00 AM | | procedure are in the | | | | PDT | | results section. | + +--------+ + + + | X-RAY ABD LTD | Routin | 06/26/2011 | | Results for this | | FEEDING TUBE EVAL | e | 1:59 PM | | procedure are in the | | | | PDT | | results section. | + +--------+ + + + | URINE SCREEN FOR | Routin | 06/26/2011 | | Results for this | | CULTURE | e | 11:40 AM | | procedure are in the | | | | PDT | | results section. | + +--------+ + + + | CULTURE, URINE BACTI | Routin | 06/26/2011 | | Results for this | | | e | 11:40 AM | | procedure are in the | | | | PDT | | results section. | + +--------+ + + + | TYPE AND SCREEN | Routin | 06/26/2011 | | Results for this | | | e | 10:49 AM | | procedure are in the | | | | PDT | | results section. | + +--------+ + + + | X-RAY ABDOMEN 1 VIEW | Routin | 06/26/2011 | | Results for this | | | e | 10:25 AM | | procedure are in the | | | | PDT | | results section. | + +--------+ + + + | BASIC METABOLIC SET | Routin | 06/26/2011 | | Results for this | | (NA, K, CL, TCO2, | e | 10:03 AM | | procedure are in the | | BUN, CR, GLU, CA) | | PDT | | results section. | + +--------+ + + + | CBC ONLY | Routin | 06/26/2011 | | Results for this | | | e | 10:03 AM | | procedure are in the | | | | PDT | | results section. | + +--------+ + + + documented in this encounter Results PROCEDURE NOTE (12/21/2015 5:50 AM PST) + + | Transcriptions | + + | Other, Faculty - 07/06/2011 11:33 AM PDT | + + OPERATION RECORD (07/06/2011 4:07 PM PDT) + + | Transcriptions | + + | Justice Douglas MD - 06/27/2011 9:13 PM PDT [id number] | | [id number] [id number] MCK[facility] Escobar | | [id number] Date: 06/27/2011 Attending Surgeon: Justice | | MD Misael Cage Clerk(s): Terrence Pardo MD | | Lb Luo M.D. Preoperative Diagnosis(es):Lipomyelomeningocele, | | neurogenic bladder dysfunction, high-pressure poorlycompliant trabeculated bladder, and | | bowel and bladder incontinence. Postoperative Diagnosis(es):Lipomyelomeningocele, | | neurogenic bladder dysfunction, high-pressure poorlycompliant trabeculated bladder, and | | bowel and bladder incontinence. Procedures Performed:Cystoscopy and bladder | | augmentation (ileocystoplasty with 30 cm of smallbowel). Anesthesia:General. | | Indications:This is a 15-year-old with severe bladder dysfunction. He has | | incontinencein a high-pressure bladder. His ultrasound is showing early changes | | ofhydronephrosis. He will undergo bladder augmentation. He also has bowelincontinence | | and will undergo a laparoscopic cecostomy tube placement byDr. Loera. Procedure:The | | patient was brought to the operating suite. After induction of generalanesthetic, he | | was positioned supine in the dorsal lithotomy position. Hisexternal genitalia were | | prepped and draped in the usual fashion. A14.5-Italian pediatric cystoscope was advanced | | through his urethra underdirect vision. The bladder was entered. The urethra was | | relativelyunremarkable, perhaps a bit tight on the scope in the bulbar region but | | nodefinite stricture. No false passages were noted. The bladder wasentered. There was | | severe dilation of the prostatic urethra. The trigoneon bladder base was severely | | trabeculated. The ureteral orifices werehorseshoe-shaped along the trigonal ridge. | | Severe trabeculations andcellules throughout the bladder. The scope was withdrawn. A | | 16-FrenchFoley catheter was placed. The bladder was irrigated several times with Leigh | | irrigant. The bladder was filled with 120 mL of irrigant and thenput to straight | | drainage. Following this, he was repositioned supine. Hisabdomen was shaved, prepped, | | and draped in the usual fashion. Dr. Loera began by performing his part of the | | procedure. It will bedictated separately. He placed a laparoscopic Chait tube. He | | closed theumbilical port site and the umbilical skin. At this point, I took over. The | | infraumbilical midline incision measuring about 8 cm was made. Theskin and subcutaneous | | tissues were divided. The fascia was identified. Weopened the fascia and dissected | | into the retroperitoneal space. Theperitoneum was opened. The Bookwalter retractor was | | placed. We visualizedthe cecum and the terminal ileum. Measuring 20 cm from the | | terminal ileum,we began to isolate a bowel segment and isolated a 30 cm segment of | | ileum.The windows were made in the mesentery, and the mesentery was divided withthe | | LigaSure. The bowel was divided with DANIS 60 staplers. A ylhtfchmocgrcy-ny-avpk | | anastomosis was then performed by opening the corners of thebowel and bringing the DANIS | | along the antimesenteric border. The chimney ofthe anastomosis was closed with a TA-55. | | The exposed mucosa wasfulgurated. The crotch of the anastomosis was secured with a | | Lembertsuture of 2-0 silk. Interrupted 2-0 silks were used to close themesenteric trap. | | The bowel segment was brought inferior. It was openedand irrigated copiously with | | irrigant. The bowel was detubularized andthen reconfigured into an inverted U. The | | medial portion was closed with arunning locking 2-0 Vicryl. The bladder was mobilized | | from the peritoneum,and a midline cystotomy was made. The bladder was opened anteriorly | | andposteriorly creating a very extensive cystotomy. The trigone wasvisualized, and we | | kept a safe distance from it posteriorly. At thispoint, the bladder-bowel anastomosis | | was performed beginning posteriorlywith running locking 2-0 Vicryl. A number 10 flat DAVID | | was brought throughthe left side of the bladder and secured with a 4-0 Vicryl | | pursestring.The anterior closure was then performed with running locking 2-0 Vicryl.Very | | small Maykel patches were closed on either side of the augment. Thebladder was copiously | | irrigated. The area was noted to be watertight. Nosignificant leaks. The abdomen was | | irrigated. A 19-Italian round DAVID wasbrought through the right lower quadrant and | | secured superior to where theSP tube was brought out through a separate stab incision. | | The tubes weresecured with nylon. The peritoneum was closed superiorly. The fascia | | wasclosed with a running 0 Maxon. Vicryl 4-0 was used to close thesubcuticular tissue. | | A running 5-0 Caprosyn was used to close the skin.Dermabond was applied over the | | abdominal incision and the umbilical andleft lower quadrant incisions. The drainage | | tubes were secured with drainsponges and Tegaderms. The fascia and incision were | | infiltrated with 10 mLof 0.25% bupivacaine just prior to skin closure. Justice Douglas, | | MAULIK / [id number] / [id number] / [id number] / T: 06/27/2011 | |dictated separately. He placed a laparoscopic Chait tube. He closed the | |umbilical port site and the umbilical skin. At this point, I took over. | | | | | |The infraumbilical midline incision measuring about 8 cm was made. The | |skin and subcutaneous tissues were divided. The fascia was identified. We | |opened the fascia and dissected into the retroperitoneal space. The | |peritoneum was opened. The Bookwalter retractor was placed. We visualized | |the cecum and the terminal ileum. Measuring 20 cm from the terminal ileum, | |we began to isolate a bowel segment and isolated a 30 cm segment of ileum. | |The windows were made in the mesentery, and the mesentery was divided with | |the LigaSure. The bowel was divided with DANIS 60 staplers. A functional | |hqnv-ah-ykgr anastomosis was then performed by opening the corners of the | |bowel and bringing the DANIS along the antimesenteric border. The chimney of | |the anastomosis was closed with a TA-55. The exposed mucosa was | |fulgurated. The crotch of the anastomosis was secured with a Lembert | |suture of 2-0 silk. Interrupted 2-0 silks were used to close the | |mesenteric trap. The bowel segment was brought inferior. It was opened | |and irrigated copiously with irrigant. The bowel was detubularized and | |then reconfigured into an inverted U. The medial portion was closed with a | |running locking 2-0 Vicryl. The bladder was mobilized from the peritoneum, | |and a midline cystotomy was made. The bladder was opened anteriorly and | |posteriorly creating a very extensive cystotomy. The trigone was | |visualized, and we kept a safe distance from it posteriorly. At this | |point, the bladder-bowel anastomosis was performed beginning posteriorly | |with running locking 2-0 Vicryl. A number 10 flat DAVID was brought through | |the left side of the bladder and secured with a 4-0 Vicryl pursestring. | |The anterior closure was then performed with running locking 2-0 Vicryl. | |Very small Maykel patches were closed on either side of the augment. The | |bladder was copiously irrigated. The area was noted to be watertight. No | |significant leaks. The abdomen was irrigated. A 19-Italian round DAVID was | |brought through the right lower quadrant and secured superior to where the | |SP tube was brought out through a separate stab incision. The tubes were | |secured with nylon. The peritoneum was closed superiorly. The fascia was | |closed with a running 0 Maxon. Vicryl 4-0 was used to close the | |subcuticular tissue. A running 5-0 Caprosyn was used to close the skin. | |Dermabond was applied over the abdominal incision and the umbilical and | |left lower quadrant incisions. The drainage tubes were secured with drain | |sponges and Tegaderms. The fascia and incision were infiltrated with 10 mL | |of 0.25% bupivacaine just prior to skin closure. | | | | | | | | | |Justice Douglas MD | |JA / HS | |[id number] / [id number] / [id number] / | | | | | | | | | | | | | | | | | | | | | + + | Gabriel Loera MD - 06/28/2011 8:23 AM PDT [id number] | | [id number] [facility] Esc[facility] | | [id number] Date: 06/26/2011 Attending Surgeon: Gabriel | | Morris Loera Cage Clerk(s): Preoperative Diagnosis(es):Spina bifida with bowel | | incontinence. Postoperative Diagnosis(es):Spina bifida with bowel incontinence. | | Postoperative Diagnosis(es):Laparoscopic Chait cecostomy tube placement. | | Anesthesia:General endotracheal. Indications:Pete Orozco is a 15-year-old male with a | | history of spina bifida andbowel incontinence. We discussed the risks and benefits of | | alaparoscopically placed Chait cecostomy tube with him. He understood theserisks and | | provided written informed consent. Procedure:The patient was taken the operating room | | and already had a cystoscopyperformed by the urology service. A separate timeout was | | performed for thececostomy tube. The patient was positioned on the table in the | | supineposition. He was prepped and draped in normal sterile fashion. A 5 mmscope was | | placed in the umbilicus using a semi open technique and a Steptrocar. The abdomen was | | insufflated and re-inspected the small bowel forany evidence of injury and there was | | none. The cecum was easilyidentified. Through a stab wound, a bowel grasper was placed | | in the leftlower quadrant and that was used to hold the cecum in place while we placed4 | | T-fasteners sequentially in a square pattern. In the middle of this, weplaced the | | cecostomy tube using a Seldinger technique and a dilator andsheath. The position of the | | cecostomy tube was confirmed by instilling airinto the cecum. We used a medium length | | cecostomy tube. There were noapparent complications. Estimated blood loss was less | | than 5 cc. Please note, I was present and scrubbed throughout the entire portion of | | mycase. At this point, the trocars were removed. The umbilical wound was closedand the | | patient was turned over to the urology service for his bladderaugmentation. Gabriel | | Ludwig Loera.ART / [id number] / [id number] / [id number] / T: 06/27/2011 | |Anesthesia: | |General endotracheal. | | | | | |Indications: | |Pete Orozco is a 15-year-old male with a history of spina bifida and | |bowel incontinence. We discussed the risks and benefits of a | |laparoscopically placed Chait cecostomy tube with him. He understood these | |risks and provided written informed consent. | | | | | |Procedure: | |The patient was taken the operating room and already had a cystoscopy | |performed by the urology service. A separate timeout was performed for the | |cecostomy tube. The patient was positioned on the table in the supine | |position. He was prepped and draped in normal sterile fashion. A 5 mm | |scope was placed in the umbilicus using a semi open technique and a Step | |trocar. The abdomen was insufflated and re-inspected the small bowel for | |any evidence of injury and there was none. The cecum was easily | |identified. Through a stab wound, a bowel grasper was placed in the left | |lower quadrant and that was used to hold the cecum in place while we placed | |4 T-fasteners sequentially in a square pattern. In the middle of this, we | |placed the cecostomy tube using a Seldinger technique and a dilator and | |sheath. The position of the cecostomy tube was confirmed by instilling air | |into the cecum. We used a medium length cecostomy tube. There were no | |apparent complications. Estimated blood loss was less than 5 cc. | | | | | |Please note, I was present and scrubbed throughout the entire portion of my | |case. | | | | | |At this point, the trocars were removed. The umbilical wound was closed | |and the patient was turned over to the urology service for his bladder | |augmentation. | | | | | | | | | |Gabriel Loera M.D. | |GZ / HS | |[id number] / [id number] / [id number] / | | | | | | | | | | | | | | | | | | | | | + + CULTURE, URINE BACTI (06/30/2011 1:03 PM PDT) + + + + + + | Component | Value | Ref Range | Performed | Pathologist | | | | | At | Signature | + + + + + + | SOURCE BODY | [facility] | | [facility] | | | SITE | | | REGIONAL | | | | | | LAB-MICRO | | + + + + + + | CULTURE | Urine Culture | | [facility] | | | RESULT | | | REGIONAL | | | | Source...............: | | LAB-MICRO | | | | [facility] | | | | | | Culture: Final | | | | | | Report: No growth (< | | | | | | 1,000 col/ml) after 24 | | | | | | hours Final | | | | | | Report Resulted: | | | | | | 07/01/11 | | | | | | [facility]) | | | | | | [place] | | | | | [facility] | | | | | | [address] [address] [facility] | | | | | | [place], [place] | | | | | | [address] | | | | + + + + + + + + | Specimen | + + | Urine - [facility] | + + + + + + + | Performing | Address | City/State/Zipcode | Phone Number | | Organization | | | | + + + + + | [facility] | [address] | [place] [address] | | | LAB-MICRO | | | | + + + + + BASIC METABOLIC SET (NA, K, CL, TCO2, BUN, CR, GLU, CA) (06/28/2011 7:28 AM PDT) + +---------+ + + + | Component | Value | Ref Range | Performed | Pathologist | | | | | At | Signature | + +---------+ + + + | GLUCOSE, | 94 | 60 - 99 mg/dL | [facility] | | | PLASMA | | | DEPARTMENT | | | (LAB) | | | OF | | | | | | PATHOLOGY | | + +---------+ + + + | BUN, PLASMA | 4 (L) | 6 - 20 mg/dL | [facility] | | | (LAB) | | | DEPARTMENT | | | | | | OF | | | | | | PATHOLOGY | | + +---------+ + + + | CREATININE | 0.64 | 0.46 - 0.81 | [facility] | | | PLASMA | | mg/dL | DEPARTMENT | | | (LAB) | | | OF | | | | | | PATHOLOGY | | + +---------+ + + + | SODIUM, | 137 | 134 - 143 | [facility] | | | PLASMA | | mmol/L | DEPARTMENT | | | (LAB) | | | OF | | | | | | PATHOLOGY | | + +---------+ + + + | POTASSIUM, | 4.2 | 3.4 - 5.0 | [facility] | | | PLASMA | | mmol/L | DEPARTMENT | | | (LAB) | | | OF | | | | | | PATHOLOGY | | + +---------+ + + + | CHLORIDE, | 99 | 97 - 108 mmol/L | [facility] | | | PLASMA | | | DEPARTMENT | | | (LAB) | | | OF | | | | | | PATHOLOGY | | + +---------+ + + + | TOTAL CO2, | 31 (H) | 22 - 29 mmol/L | [facility] | | | PLASMA | | | DEPARTMENT | | | (LAB) | | | OF | | | | | | PATHOLOGY | | + +---------+ + + + | CALCIUM, | 8.5 (L) | 8.6 - 10.2 | [facility] | | | PLASMA | | mg/dL | DEPARTMENT | | | (LAB) | | | OF | | | | | | PATHOLOGY | | + +---------+ + + + | ANION GAP | 7 | 4 - 11 mmol/L | [facility] | | | | | | DEPARTMENT | | | | | | OF | | | | | | PATHOLOGY | | + +---------+ + + + + + | Specimen | + + | Blood - Blood | + + + + + + + | Performing | Address | City/State/Zipcode | Phone Number | | Organization | | | | + + + + + | [facility] DEPARTMENT OF | [address] | [place] [address] | | | PATHOLOGY | [address] | | | + + + + + CBC ONLY (06/28/2011 7:28 AM PDT) + + + + + + | Component | Value | Ref Range | Performed | Pathologist | | | | | At | Signature | + + + + + + | WHITE CELL | 8.1 | 4.9 - 15.5 K/cu | [facility] | | | COUNT | | mm | DEPARTMENT | | | | | | OF | | | | | | PATHOLOGY | | + + + + + + | RED CELL | 4.29 (L) | 4.50 - 5.30 | [facility] | | | COUNT | | M/cu mm | DEPARTMENT | | | | | | OF | | | | | | PATHOLOGY | | + + + + + + | HEMOGLOBIN | 13.3 | 13.0 - 16.0 | [facility] | | | | | g/dL | DEPARTMENT | | | | | | OF | | | | | | PATHOLOGY | | + + + + + + | HEMATOCRIT | 38.0 | 37.0 - 49.0 % | [facility] | | | | | | DEPARTMENT | | | | | | OF | | | | | | PATHOLOGY | | + + + + + + | MCV | 88.7 | 80.0 - 96.0 fL | [facility] | | | | | | DEPARTMENT | | | | | | OF | | | | | | PATHOLOGY | | + + + + + + | MCHC | 35.0 | 33.4 - 35.5 | [facility] | | | | | g/dL | DEPARTMENT | | | | | | OF | | | | | | PATHOLOGY | | + + + + + + | RDW | 12.6 | 11.5 - 15.0 % | [facility] | | | | | | DEPARTMENT | | | | | | OF | | | | | | PATHOLOGY | | + + + + + + | PLATELET | 203 | 150 - 400 K/cu | [facility] [...] | + + + + + | [facility] | [address] | [place] [address] | | | PATHOLOGY | [address] | | | + + + + + ANESTHESIA/SEDATION (06/27/2011 12:00 AM PDT) + + + | Narrative | Performed At | + + + | | | + + + + + | Transcriptions | + + | Carol, Faculty - 06/27/2011 12:35 PM PDT | + + ANESTHESIA/SEDATION (06/27/2011 12:00 AM PDT) + + + | Narrative | Performed At | + + + | | | + + + + + | Transcriptions | + + | Other, Faculty - 06/27/2011 11:35 AM PDT | + + X-RAY ABD LTD FEEDING TUBE EVAL (06/26/2011 1:59 PM PDT) + + + + + + | Component | Value | Ref Range | Performed | Pathologist | | | | | At | Signature | + + + + + + | ABD LTD | Limited AP abdomen | | | | | FEEDING | radiograph for feeding | | | | | TUBE EVAL | tube evaluation: | | | | | | 06/26/11. Comparison: | | | | | | 06/26/11. History: | | | | | | Feeding tube | | | | | | placement. Impression: | | | | | | Enteric tube tip and | | | | | | sidehole overlie | | | | | | stomach.Otherwise little | | | | | | change. Attending | | | | | | Radiologists: Sridevi | | | | | | Dot Torres M.D.Author: | | | | | | Sridevi Torres, | | | | | | Morris I have personally | | | | | | viewed this | | | | | | procedure/exam, reviewed | | | | | | this report,and made | | | | | | changes to it where | | | | | | appropriate. | | | | | | Final/Electronically | | | | | | lester / Sridevi Chris | | | | | | Melissa 06/26/201114:05 | | | | | | PM | | | | + + + + + + + + | Specimen | + + | | + + + +---------+ + + | Performing | Address | City/State/Zipcode | Phone Number | | Organization | | | | + +---------+ + + | [facility] DEPARTMENT OF | | | | | RADIOLOGY | | | | + +---------+ + + CULTURE, URINE BACTI (06/26/2011 11:40 AM PDT) + + + + + + | Component | Value | Ref Range | Performed | Pathologist | | | | | At | Signature | + + + + + + | SOURCE BODY | Clean catch | | [facility] | | | SITE | | | REGIONAL | | | | | | LAB-MICRO | | + + + + + + | CULTURE | Urine Culture | | [facility] | | | RESULT | | | REGIONAL | | | | Source...............: | | LAB-MICRO | | | | Clean catch | | | | | | Culture: > | | | | | | 100,000 col/ml | | | | | | Klebsiella pneumoniae | | | | | | Final ID | | | | | | > 100,000 | | | | | | col/ml Enterococcus | | | | | | species | | | | | | Final ID | | | | | | K. | | | | | | pneumo ISABEL | | | | | | Ampicillin | | | | | | R S | | | | | | Amp/Sulbactam | | | | | | S Cefazolin | | | | | | S | | | | | | Ciprofloxacin | | | | | | S S | | | | | | Gentamicin | | | | | | S Nitrofurantoin | | | | | | R S | | | | | | Tetracycline | | | | | | R | | | | | | Tobramycin | | | | | | S Trimeth/Sulfa | | | | | | S Vancomycin | | | | | | | | | | | | S Final Report | | | | | | Resulted: | | | | | | 06/29/11 | | | | | | [facility] ([facility]) | | | | | | [place] | | | | | | [facility] [place] | | | | | | [address] | | | | | | [place], [place] | | | | | | [address] | | | | + + + + + + + + | Specimen | + + | | + + + + + + + | Performing | Address | City/State/Zipcode | Phone Number | | Organization | | | | + + + + + | [facility] | [address] | [place] [address] | | | LAB-MICRO | | | | + + + + + URINE SCREEN FOR CULTURE (06/26/2011 11:40 AM PDT) + + + + + + | Component | Value | Ref Range | Performed | Pathologist | | | | | At | Signature | + + + + + + | CULT, URINE | Positive for Nitrite | | [facility] | | | SCREEN | and/or Leukocyte | | DEPARTMENT | | | | Esterase.Specimen sent | | OF | | | | for culture. | | PATHOLOGY | | + + + + + + + + | Specimen | + + | Urine - Catheterized | + + + + + + + | Performing | Address | City/State/Zipcode | Phone Number | | Organization | | | | + + + + + | [facility] DEPARTMENT OF | [address] | [place] [address] | | | PATHOLOGY | [address] | | | + + + + + TYPE AND SCREEN (06/26/2011 10:49 AM PDT) + + + + + + | Component | Value | Ref Range | Performed | Pathologist | | | | | At | Signature | + + + + + + | ABO GROUP | A | | [facility] | | | | | | DEPARTMENT | | | | | | OF | | | | | | PATHOLOGY | | + + + + + + | RH TYPE | Positive | | [facility] | | | | | | DEPARTMENT | | | | | | OF | | | | | | PATHOLOGY | | + + + + + + | Antibody | Negative | | [facility] | | | Screen | | | DEPARTMENT | | | [...] DEPARTMENT OF | [address] | [place] [address] | | | PATHOLOGY | [address] | | | + + + + + X-RAY ABDOMEN 1 VIEW (06/26/2011 10:25 AM PDT) + + + + + + | Component | Value | Ref Range | Performed | Pathologist | | | | | At | Signature | + + + + + + | ABDOMEN, 1 | STUDY: ABDOMEN 1 VIEW | | | | | VIEW (KUB) | 06/26/11 10:25:00 | | | | | | COMPARISON: Spine entire | | | | | | survey 10/03/2010 | | | | | | HISTORY: Evaluate stool | | | | | | burden in preparation | | | | | | for surgery. FINDINGS: | | | | | | There is a | | | | | | small-moderate amount of | | | | | | stool within the | | | | | | colon.Gas-filled bowel | | | | | | is non-dilated, with no | | | | | | radiographic signs of | | | | | | bowelobstruction. | | | | | | Bowel gas is seen at | | | | | | least as far as the | | | | | | rectosigmoidjunction. | | | | | | There is no | | | | | | hepatosplenomegaly or | | | | | | abnormal soft | | | | | | tissuecalcification. | | | | | | Lumbosacral dysraphism | | | | | | is once again seen. A | | | | | | mildlumbar | | | | | | dextroscoliosis is | | | | | | present. There are no | | | | | | acute fractures.The hip | | | | | | joints are maintained. | | | | | | IMPRESSION: 1. | | | | | | Small-moderate amount | | | | | | of stool. 2. Grossly | | | | | | unchanged lumbosacral | | | | | | dysraphism with a mild | | | | | | lumbardextroscoliosis. | | | | | | Attending Radiologists: | | | | | | Sridevi Torres, | | | | | | MorrisAuthor: Iggy | | | | | | Morris Ramirez I have | | | | | | personally viewed this | | | | | | procedure/exam, reviewed | | | | | | this report,and made | | | | | | changes to it where | | | | | | appropriate. | | | | | | Final/Electronically | | | | | | signed / Sridevi Chris | | | | | | Melissa 06/26/201110:46 | | | | | | AM | | | | + + + + + + + + | Specimen | + + | | + + + +---------+ + + | Performing | Address | City/State[facility] | Phone Number | | Organization | | | | + +---------+ + + | [facility] DEPARTMENT OF | | | | | RADIOLOGY | | | | + +---------+ + + CBC ONLY (06/26/2011 10:03 AM PDT) + + + + + + | Component | Value | Ref Range | Performed | Pathologist | | | | | At | Signature | + + + + + + | WHITE CELL | 6.5 | 4.9 - 15.5 K/cu | [facility] | | | COUNT | | mm | DEPARTMENT | | | | | | OF | | | | | | PATHOLOGY | | + + + + + + | RED CELL | 4.87 | 4.50 - 5.30 | [facility] | | | COUNT | | M/cu mm | DEPARTMENT | | | | | | OF | | | | | | PATHOLOGY | | + + + + + + | HEMOGLOBIN | 15.3 | 13.0 - 16.0 | [facility] | | | | | g/dL | DEPARTMENT | | | | | | OF | | | | | | PATHOLOGY | | + + + + + + | HEMATOCRIT | 42.1 | 37.0 - 49.0 % | [facility] | | | | | | DEPARTMENT | | | | | | OF | | | | | | PATHOLOGY | | + + + + + + | MCV | 86.3 | 80.0 - 96.0 fL | [facility] | | | | | | DEPARTMENT | | | | | | OF | | | | | | PATHOLOGY | | + + + + + + | MCHC | 36.3 (H) | 33.4 - 35.5 | [facility] | [...] + + + + | PLATELET | 232 | 150 - 400 K/cu | [facility] [...] DEPARTMENT OF | [address] | [place] [address] | | | PATHOLOGY | [address] | | | + + + + + BASIC METABOLIC SET (NA, K, CL, TCO2, BUN, CR, GLU, CA) (06/26/2011 10:03 AM PDT) + +-------+ + + + | Component | Value | Ref Range | Performed | Pathologist | | | | | At | Signature | + +-------+ + + + | GLUCOSE, | 91 | 60 - 99 mg/dL | [facility] | | | PLASMA | | | DEPARTMENT | | | (LAB) | | | OF | | | | | | PATHOLOGY | | + +-------+ + + + | BUN, PLASMA | 11 | 6 - 20 mg/dL | [facility] | | | (LAB) | | | DEPARTMENT | | | | | | OF | | | | | | PATHOLOGY | | + +-------+ + + + | CREATININE | 0.57 | 0.46 - 0.81 | [facility] | | | PLASMA | | mg/dL | DEPARTMENT | | | (LAB) | | | OF | | | | | | PATHOLOGY | | + +-------+ + + + | SODIUM, | 136 | 134 - 143 | [facility] | | | PLASMA | | mmol/L | DEPARTMENT | | | (LAB) | | | OF | | | | | | PATHOLOGY | | + +-------+ + + + | POTASSIUM, | 4.2 | 3.4 - 5.0 | [facility] | | | PLASMA | | mmol/L | DEPARTMENT | | | (LAB) | | | OF | | | | | | PATHOLOGY | | + +-------+ + + + | CHLORIDE, | 102 | 97 - 108 mmol/L | [facility] | | | PLASMA | | | DEPARTMENT | | | (LAB) | | | OF | | | | | | PATHOLOGY | | + +-------+ + + + | TOTAL CO2, | 27 | 22 - 29 mmol/L | [facility] | | | PLASMA | | | DEPARTMENT | | | (LAB) | | | OF | | | | | | PATHOLOGY | | + +-------+ + + + | CALCIUM, | 9.3 | 8.6 - 10.2 | [facility] | | | PLASMA | | mg/dL | DEPARTMENT | | | (LAB) | | | OF | | | | | | PATHOLOGY | | + +-------+ + + + | ANION GAP | 7 | 4 - 11 mmol/L [...] | + + + + + | 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, lumbar region | + + | Neurogenic bladder, NOS | + + | Neurogenic bowel | + + documented in this encounter Administered Medications + +--------+ +--------+------+------+ | Medication Order | MAR | Action | Dose | Rate | Site | | | Action | Date | | | | + +--------+ +--------+------+------+ | acetaminophen (aka TYLENOL) | Given | 07/03/20 | 650 mg | | | | tablet 325-650 mg 325-650 mg, | | 11 1:37 | | | | | oral, EVERY 4 HOURS NEEDED, | | AM PDT | | | | | Starting 06/27/11 at 1406, | | | | | | | Until Melissa 07/03/11 at 1615, mild | | | | | | | pain, fever | | | | | | + +--------+ +--------+------+------+ +-------+ +--------+---+---+ | Given | 07/02/20 | 650 mg | | | | | 11 10:01 | | | | | | AM PDT | | | | +-------+ +--------+---+---+ | Given | 07/02/20 | 650 mg | | | | | 11 4:50 | | | | | | AM PDT | | | | +-------+ +--------+---+---+ +---+---+ | | | +---+---+ + +-------+ +-------+---+---+ | bisacodyl (aka DULCOLAX) | Given | 07/01/20 | 10 mg | | | | suppository 10 mg 10 mg, rectal, | | 11 10:23 | | | | | DAILY NEEDED, Starting Tue | | AM PDT | | | | | 07/01/11 at 0821, Until Melissa | | | | | | | 07/03/11 at 1615, constipation | | | | | | + +-------+ +-------+---+---+ +---+---+ | | | +---+---+ + +-------+ +-----+---+---+ | ceFAZolin (aka ANCEF) injection | Given | 06/30/20 | 1 g | | | | 1 g 1 g, intravenous, EVERY 8 | | 11 7:50 | | | | | HOURS, First dose on 06/30/11 | | AM PDT | | | | | at 0800, Until Discontinued | | | | | | + +-------+ +-----+---+---+ +---+---+ | | | +---+---+ + +-------+ +-----+---+---+ | cefTRIAXone (aka ROCEPHIN) IV 2 | Given | 06/29/20 | 2 g | | | | g 2 g, intravenous, EVERY 24 | | 11 11:54 | | | | | HOURS, First dose on Melissa 06/26/11 | | AM PDT | | | | | at 0930, Until Discontinued | | | | | | + +-------+ +-----+---+---+ +-------+ +-----+---+---+ | Given | 06/28/20 | 2 g | | | | | 11 1:07 | | | | | | PM PDT | | | | +-------+ +-----+---+---+ | Given | 06/26/20 | 2 g | | | | | 11 12:16 | | | | | | PM PDT | | | | +-------+ +-----+---+---+ +---+---+ | | | +---+---+ + +-------+ +--------+---+---+ | ciprofloxacin (aka CIPRO) | Given | 07/03/20 | 500 mg | | | | tablet 500 mg 500 mg, oral, | | 11 9:06 | | | | | TWICE DAILY, First dose on Mon | | AM PDT | | | | | 06/30/11 at 1200, Until | | | | | | | Discontinued | | | | | | + +-------+ +--------+---+---+ +-------+ +--------+---+---+ | Given | 07/02/20 | 500 mg | | | | | 11 9:38 | | | | | | PM PDT | | | | +-------+ +--------+---+---+ | Given | 07/02/20 | 500 mg | | | | | 11 10:00 | | | | | | AM PDT | | | | +-------+ +--------+---+---+ +---+---+ | | | +---+---+ + +---------+ +-------+-------+---+ | dextrose 5%-NaCl 0.45%-KCl 20 | New Bag | 06/28/20 | 125 | 125 | | | mEq/L IV infusion 125 mL/hr, | | 11 2:30 | mL/hr | mL/hr | | | intravenous, CONTINUOUS, Starting | | AM PDT | | | | | Melissa 06/26/11 at 0900, Until Sat | | | | | | | 06/28/11 at 0758 | | | | | | + +---------+ +-------+-------+---+ + + +-------+-------+---+ | New Bag | 06/27/20 | 125 | 125 | | | | 11 6:30 | mL/hr | mL/hr | | | | PM PDT | | | | + + +-------+-------+---+ | Rate/Dose Verify | 06/27/20 | 125 | 125 | | | | 11 2:41 | mL/hr | mL/hr | | | | PM PDT | | | | + + +-------+-------+---+ +---+---+ | | | +---+---+ + + + +-------+-------+---+ | dextrose 5%-NaCl 0.45%-KCl 20 | Rate/Dos | 06/29/20 | 100 | 100 | | | mEq/L IV infusion 100 mL/hr, | e Verify | 11 9:47 | mL/hr | mL/hr | | | intravenous, CONTINUOUS, Starting | | PM PDT | | | | | 06/28/11 at 0800, Until Mon | | | | | | | 06/30/11 at 0641 | | | | | | + + + +-------+-------+---+ + + +-------+-------+---+ | New Bag | 06/29/20 | 100 | 100 | | | | 11 11:55 | mL/hr | mL/hr | | | | AM PDT | | | | + + +-------+-------+---+ | Rate/Dose Verify | 06/29/20 | 100 | 100 | | | | 11 9:26 | mL/hr | mL/hr | | | | AM PDT | | | | + + +-------+-------+---+ +---+---+ | | | +---+---+ + + + + + +---+ | dextrose 5%-NaCl 0.45%-KCl 20 | Rate/Dos | 06/30/20 | 50 mL/hr | 50 mL/hr | | | mEq/L IV infusion 50 mL/hr, | e Change | 11 8:07 | | | | | intravenous, CONTINUOUS, Starting | | AM PDT | | | | | 06/30/11 at 0645, Until Tue | | | | | | | 07/01/11 at 0816 | | | | | | + + + + + +---+ +---+---+ | | | +---+---+ + +---------+ +---+ +---+ | dextrose 5%-NaCl 0.45%-KCl 20 | New Bag | 07/02/20 | | 90 mL/hr | | | mEq/L IV intravenous, | | 11 4:50 | | | | | CONTINUOUS, Starting Thu07/01/11 | | AM PDT | | | | | at 1730, Until Melissa 07/03/11 at | | | | | | | 1615 | | | | | | + +---------+ +---+ +---+ +---------+ +---+ +---+ | New Bag | 07/01/20 | | 90 mL/hr | | | | 11 5:45 | | | | | | PM PDT | | | | +---------+ +---+ +---+ +---+---+ | | | +---+---+ + +-------+ +-------+---+---+ | diphenhydrAMINE (aka BENADRYL) | Given | 06/30/20 | 25 mg | | | | injection 12.5-25 mg 12.5-25 mg, | | 11 10:15 | | | | | intravenous, EVERY 6 HOURS | | AM PDT | | | | | NEEDED, Starting Melissa 06/26/11 at | | | | | | | 2241, Until Thu07/03/11 at 1615, | | | | | | | itching, allergic reaction, | | | | | | | insomnia, nausea/vomiting | | | | | | + +-------+ +-------+---+---+ +-------+ +---------+---+---+ | Given | 06/29/20 | 12.5 mg | | | | | 11 2:39 | | | | | | PM PDT | | | | +-------+ +---------+---+---+ | Given | 06/29/20 | 12.5 mg | | | | | 11 11:55 | | | | | | AM PDT | | | | +-------+ +---------+---+---+ +---+---+ | | | +---+---+ + +-------+ +--------+---+---+ | erythromycin ethylsuccinate | Given | 06/27/20 | 860 mg | | | | (aka EES) suspension 860 mg 860 | | 11 3:55 | | | | | mg, oral, PREPROCEDURE PRN, 3 | | AM PDT | | | | | doses, Starting Melissa 06/26/11 at | | | | | | | 0857, Until Thu06/27/11 at 0355, | | | | | | | see admin instructions | | | | | | + +-------+ +--------+---+---+ +-------+ +--------+---+---+ | Given | 06/27/20 | 860 mg | | | | | 11 2:01 | | | | | | AM PDT | | | | +-------+ +--------+---+---+ | Given | 06/27/20 | 860 mg | | | | | 11 12:06 | | | | | | AM PDT | | | | +-------+ +--------+---+---+ +---+---+ | | | +---+---+ + +-------+ +--------+---+---+ | HYDROmorphone (aka DILAUDID) | Given | 06/27/20 | 0.1 mg | | | | injection 0.05-0.1 mg 0.05-0.1 | | 11 2:41 | | | | | mg, intravenous, ONCE, 1 dose, | | PM PDT | | | | | 06/27/11 at 1430 | | | | | | + +-------+ +--------+---+---+ +---+---+ | | | +---+---+ + +-------+ +--------+---+---+ | HYDROmorphone (aka DILAUDID) | Given | 06/27/20 | 0.2 mg | | | | injection 1 dose, Starting Fri | | 11 1:10 | | | | | 06/27/11 at 1207, Until Fri | | PM PDT | | | | | 06/27/11 at 1250 | | | | | | + +-------+ +--------+---+---+ +-------+ +--------+---+---+ | Given | 06/27/20 | 0.2 mg | | | | | 11 1:02 | | | | | | PM PDT | | | | +-------+ +--------+---+---+ | Given | 06/27/20 | 0.2 mg | | | | | 11 12:55 | | | | | | PM PDT | | | | +-------+ +--------+---+---+ +---+---+ | | | +---+---+ + + + +--------+--------+---+ | HYDROmorphone 25 mg in | Rate/Dos | 06/27/20 | 1.2 mg | mL/hr | | | bacteriostatic NaCl 0.9% 50 mL | e Verify | 11 7:35 | | | | | TEAROOM HOST/HOSTESS infusion intravenous, | | PM PDT | | | | | CONTINUOUS, Starting Thu06/27/11 | | | | | | | at 1415, Until 06/28/11 at | | | | | | | 0042 | | | | | | + + + +--------+--------+---+ +---------+ +--------+--------+---+ | New Bag | 06/27/20 | 0.2 mg | mL/hr | | | | 11 2:45 | | | | | | PM PDT | | | | +---------+ +--------+--------+---+ +---+---+ | | | +---+---+ + + + +--------+--------+---+ | HYDROmorphone 25 mg in | Rate/Dos | 06/28/20 | 0.3 mg | mL/hr | | | bacteriostatic NaCl 0.9% 50 mL | e Verify | 11 7:18 | | | | | TEAROOM HOST/HOSTESS infusion intravenous, | | AM PDT | | | | | CONTINUOUS, Starting 06/28/11 | | | | | | | at 0045, Until 06/28/11 at | | | | | | | 0758 | | | | | | + + + +--------+--------+---+ + + +--------+--------+---+ | Rate/Dose Verify | 06/28/20 | 0.3 mg | mL/hr | | | | 11 12:49 | | | | | | AM PDT | | | | + + +--------+--------+---+ | Bolus | 06/28/20 | 0.5 mg | mL/hr | | | | 11 12:48 | | | | | | AM PDT | | | | + + +--------+--------+---+ +---+---+ | | | +---+---+ + + + +----+--------+---+ | HYDROmorphone 25 mg in | Rate/Dos | 06/30/20 | mg | mL/hr | | | bacteriostatic NaCl 0.9% 50 mL | e Verify | 11 7:42 | | | | | TEAROOM HOST/HOSTESS infusion intravenous, | | AM PDT | | | | | CONTINUOUS, Starting 06/28/11 | | | | | | | at 0815, Until 07/01/11 at | | | | | | | 0816 | | | | | | + + + +----+--------+---+ + + +--------+--------+---+ | Rate/Dose Verify | 06/29/20 | 0.3 mg | mL/hr | | | | 11 7:22 | | | | | | PM PDT | | | | + + +--------+--------+---+ | New Bag | 06/29/20 | 0.3 mg | mL/hr | | | | 11 5:07 | | | | | | PM PDT | | | | + + +--------+--------+---+ +---+---+ | | | +---+---+ + +-------+ +--------+---+---+ | ibuprofen (aka MOTRIN) tablet | Given | 07/02/20 | 600 mg | | | | 600 mg 600 mg, oral, EVERY 6 | | 11 4:50 | | | | | HOURS NEEDED, Starting Mon | | AM PDT | | | | | 06/30/11 at 1017, Until Melissa | | | | | | | 07/03/11 at 1615, mild pain, fever | | | | | | + +-------+ +--------+---+---+ +-------+ +--------+---+---+ | Given | 07/01/20 | 600 mg | | | | | 11 10:16 | | | | | | PM PDT | | | | +-------+ +--------+---+---+ | Given | 07/01/20 | 600 mg | | | | | 11 4:03 | | | | | | PM PDT | | | | +-------+ +--------+---+---+ +---+---+ | | | +---+---+ + +-------+ +-------+---+---+ | ketorolac (aka TORADOL) | Given | 06/30/20 | 30 mg | | | | injection 30 mg 30 mg, | | 11 7:59 | | | | | intravenous, EVERY 6 HOURS | | AM PDT | | | | | NEEDED, Starting Thu06/27/11 at | | | | | | | 1406, Until Tu07/01/11 at 1456, | | | | | | | moderate pain | | | | | | + +-------+ +-------+---+---+ +-------+ +-------+---+---+ | Given | 06/29/20 | 30 mg | | | | | 11 3:04 | | | | | | PM PDT | | | | +-------+ +-------+---+---+ | Given | 06/29/20 | 30 mg | | | | | 11 9:27 | | | | | | AM PDT | | | | +-------+ +-------+---+---+ +---+---+ | | | +---+---+ + +-------+ +--------+---+---+ | LORazepam (aka ATIVAN) | Given | 06/26/20 | 0.5 mg | | | | injection 0.5-1 mg 0.5-1 mg, | | 11 10:23 | | | | | intravenous, EVERY 6 HOURS | | PM PDT | | | | | NEEDED, Starting Thu06/26/11 at | | | | | | | 1439, Until Thu06/27/11 at 1410, | | | | | | | anxiety, agitation | | | | | | + +-------+ +--------+---+---+ +---+---+ | | | +---+---+ + +-------+ + +---+---+ | neomycin (aka MYCIFRADIN) | Given | 06/27/20 | 1,000 mg | | | | tablet 1,000 mg 1,000 mg, oral, | | 11 3:55 | | | | | PREPROCEDURE PRN, 3 doses, | | AM PDT | | | | | Starting Melissa 06/26/11 at 1022, | | | | | | | Until Thu06/27/11 at 0355, see | | | | | | | admin instructions | | | | | | + +-------+ + +---+---+ +-------+ + +---+---+ | Given | 06/27/20 | 1,000 mg | | | | | 11 2:01 | | | | | | AM PDT | | | | +-------+ + +---+---+ | Given | 06/27/20 | 1,000 mg | | | | | 11 12:06 | | | | | | AM PDT | | | | +-------+ + +---+---+ +---+---+ | | | +---+---+ + +-------+ +------+---+---+ | ondansetron (aka ZOFRCHERRIE) | Given | 07/02/20 | 4 mg | | | | injection 4 mg 4 mg, | | 11 4:49 | | | | | intravenous, EVERY 12 HOURS | | AM PDT | | | | | NEEDED, Starting Melissa 06/26/11 at | | | | | | | 1324, Until Melissa 07/03/11 at 1615, | | | | | | | nausea/vomiting | | | | | | + +-------+ +------+---+---+ +-------+ +------+---+---+ | Given | 07/01/20 | 4 mg | | | | | 11 4:45 | | | | | | PM PDT | | | | +-------+ +------+---+---+ | Given | 06/30/20 | 4 mg | | | | | 11 6:01 | | | | | | AM PDT | | | | +-------+ +------+---+---+ +---+---+ | | | +---+---+ + +-------+ +------+---+---+ | oxybutynin (aka DITROPAN) | Given | 06/26/20 | 5 mg | | | | tablet 5 mg 5 mg, oral, THREE | | 11 9:58 | | | | | TIMES DAILY, First dose on Melissa | | PM PDT | | | | | 06/26/11 at 0900, Until | | | | | | | Discontinued | | | | | | + +-------+ +------+---+---+ +-------+ +------+---+---+ | Given | 06/26/20 | 5 mg | | | | | 11 5:15 | | | | | | PM PDT | | | | +-------+ +------+---+---+ | Given | 06/26/20 | 5 mg | | | | | 11 11:40 | | | | | | AM PDT | | | | +-------+ +------+---+---+ +---+---+ | | | +---+---+ + +-------+ +------+---+---+ | oxyCODONE immediate release | Given | 07/01/20 | 5 mg | | | | (aka ROXICODONE) tablet 5-10 mg | | 11 10:18 | | | | | 5-10 mg, oral, EVERY 3 HOURS | | PM PDT | | | | | NEEDED, Starting 06/30/11 at | | | | | | | 0640, Until Melissa 07/03/11 at 1615, | | | | | | | moderate pain, severe pain | | | | | | + +-------+ +------+---+---+ +-------+ +-------+---+---+ | Given | 07/01/20 | 10 mg | | | | | 11 2:09 | | | | | | PM PDT | | | | +-------+ +-------+---+---+ | Given | 07/01/20 | 10 mg | | | | | 11 9:17 | | | | | | AM PDT | | | | +-------+ +-------+---+---+ +---+---+ | | | +---+---+ + +-------+ +--------+-------+---+ | peg-electrolyte (aka OMARLY) | Given | 06/26/20 | 1,200 | 1200 | | | liquid 25 mL/kg/hr | | 11 8:00 | mL/hr | mL/hr | | | 57.9 kg (rounded to 1,447.5 | | PM PDT | | | | | mL/hr), oral, NEEDED, Starting | | | | | | | Melissa 06/26/11 at 0857, Until Fri | | | | | | | 06/27/11 at 1410, Until clear | | | | | | | stools | | | | | | + +-------+ +--------+-------+---+ +-------+ +--------+---------+---+ | Given | 06/26/20 | 1,200 | 1200 | | | | 11 3:15 | mL/hr | mL/hr | | | | PM PDT | | | | +-------+ +--------+---------+---+ | Given | 06/26/20 | 1,448 | 1447.5 | | | | 11 11:18 | mL/hr | mL/hr | | | | AM PDT | | | | +-------+ +--------+---------+---+ +---+---+ | | | +---+---+ + +-------+ +------+---+---+ | polyethylene glycol (aka | Given | 07/02/20 | 17 g | | | | MIRALAX) powder 17 g 17 g, oral, | | 11 10:00 | | | | | DAILY, First dose on 06/30/11 | | AM PDT | | | | | at 0900, Until Discontinued | | | | | | + +-------+ +------+---+---+ +-------+ +------+---+---+ | Given | 07/01/20 | 17 g | | | | | 11 9:17 | | | | | | AM PDT | | | | +-------+ +------+---+---+ | Given | 06/30/20 | 17 g | | | | | 11 10:13 | | | | | | AM PDT | | | | +-------+ +------+---+---+ +---+---+ | | | +---+---+ + +-------+ +---------+---+---+ | promethazine (aka PHENERGAN) | Given | 07/01/20 | 6.25 mg | | | | injection 6.25 mg 6.25 mg, | | 11 8:54 | | | | | intravenous, EVERY 6 HOURS | | PM PDT | | | | | NEEDED, Starting Melissa 06/26/11 at | | | | | | | 1325, Until Melissa 07/03/11 at 1615, | | | | | | | nausea/vomiting | | | | | | + +-------+ +---------+---+---+ +---+---+ | | | +---+---+ + +-------+ +-------+---+---+ | ranitidine (aka ZANTAC) IV 50 | Given | 06/28/20 | 50 mg | | | | mg 50 mg, intravenous, EVERY 8 | | 11 8:10 | | | | | HOURS, First dose on Thu06/27/11 | | AM PDT | | | | | at 1600, Until Discontinued | | | | | | + +-------+ +-------+---+---+ +-------+ +-------+---+---+ | Given | 06/27/20 | 50 mg | | | | | 11 11:53 | | | | | | PM PDT | | | | +-------+ +-------+---+---+ | Given | 06/27/20 | 50 mg | | | | | 11 4:22 | | | | | | PM PDT | | | | +-------+ +-------+---+---+ +---+---+ | | | +---+---+ + +-------+ +-------+---+---+ | ranitidine (aka ZANTAC) IV 50 | Given | 07/01/20 | 50 mg | | | | mg 50 mg, intravenous, EVERY 8 | | 11 2:33 | | | | | HOURS, First dose on 06/28/11 | | AM PDT | | | | | at 1600, Until Discontinued | | | | | | + +-------+ +-------+---+---+ +-------+ +-------+---+---+ | Given | 06/30/20 | 50 mg | | | | | 11 7:09 | | | | | | PM PDT | | | | +-------+ +-------+---+---+ | Given | 06/30/20 | 50 mg | | | | | 11 10:12 | | | | | | AM PDT | | | | +-------+ +-------+---+---+ +---+---+ | | | +---+---+ + +-------+ +--------+---+---+ | sodium phosphates (aka FLEET) | Given | 06/26/20 | 118 mL | | | | 19-7 gram/118 mL rectal enema 118 | | 11 12:31 | | | | | mL 118 mL, rectal, ONCE, 1 | | PM PDT | | | | | dose, [facility] 06/26/11 at 1000 | | | | | | + +-------+ +--------+---+---+ +---+---+ | | | +---+---+ + +-------+ +--------+---+---+ | sodium phosphates (joby OSEI) | Given | 07/01/20 | 118 mL | | | | 19-7 gram/118 mL rectal enema 118 | | 11 4:46 | | | | | mL 118 mL, rectal, ONCE, 1 | | PM PDT | | | | | dose, [facility] 07/01/11 at 1430 | | | | | | + +-------+ +--------+---+---+ +---+---+ | | | +---+---+ documented in this encounter
--- OUTSIDE RECORDS SUMMARY | ~2019-10-26 | XMS | Encounter Summary ---
Demographics + + + | Address | [address] | | | [place] [address] | + + + | Home Phone [...] Team Providers + +------+ + | Care Wildlife Officer Name | Role | Phone | + +------+ + | Dajuan Jerome MD | PCP | | + +------+ + Encounter Details +--------+ + + + + | Date | Type | Department | Care Team | Description | +--------+ + + + + | 07/13/ | Transcribed | Allergy Clinic at | Dictation, Other | Transcribed | | 1995 | | [facility] [address] | | | | | | Ashley Acevedo | | | | | | Mailcode: [id number] [facility] | | | | | | [place] | | | | | | [facility] | | | | | | [place] [address] | | | | | | [phone] | | | +--------+ + + + [...] as of this encounter Progress Notes Interface, Obgyn Specialist In - 02/03/2007 8:04 AM PDT [facility] [address], [place], [place] [address] July 13, 1996 [facility] NG MD [address] [place] [address] [place] [address] RE:Pete Orozco MR#:[id number] : [id number] Dear Umm, We saw aqr-uqjut-ltu Pete today in the [facility]. You will recall that you saw him just yesterday. We are doing evaluations of reported weakness on the right side. In retrospect, parents reported to me at the time of the first full evaluation April,, that therapists from [facility]) had found left-sided preference with right-sided weakness. They have continued to note the same. For example, father reports that Pete reaches for objects with his left hand, but transfers comfortably to the right. The right appears to him to be somewhat uncoordinated and a little weaker. You saw them yesterday and obtained plain x-rays which revealed normal orthopedics and no fractures. Pete was seen today by our physical and occupational therapists. Both noticed only slight weakness on the right compared to the left. Dr. Vance noted the same. I saw him too, and can compare with the next exam when I am there for [facility] on August 18. What I saw was normal posturing while asleep, perhaps slightly diminished tone. When awake, he eagerly reached for keys with his right hand, brought the left hand to the midline and played along. He did a push-up, and when grasping hands to pull up from supine position, (no head lag), to me I felt equal tone between both sides. There was normal posturing of the hand with the thumb out. We felt that there was no need to do any further evaluation, such as an MRI, today. That would be indicated only if there is increased differential. At this point, we are pleased that the parents raised these issues with us. We were glad to see him and to reassure them that we can barely see any difference at this time. The proper thing to do is to follow this and to go further if there is a bigger difference in function. I clarified to father that this is an age when the brain is growing and therefore there may be a change in tone and function. I don't expect the patient to stay the same, and all we can do is see what the final outcome is. However, all of us felt that in all likelihood this would progress to normalcy. We will see it again in early August in [facility] [place] for comparison. He is also due for a full Team check in October. Please feel free to call for any additional clarification, liaison, or coordination if this change is for the worse. Sincerely, Robert Johnson M.D. Foreign Language Interpreter, Pediatrics SHAYNE/sb A C: [birth year]/21/[birth year] lisa cc: THE PARENTS BELGICA SCHMIDT Claire Sandhu R.N. Inspector Integrated Circuits documented in this encounter Plan of Treatment Not on filedocumented as of this encounter Visit Diagnoses Not on filedocumented in this encounter"
--- OUTSIDE RECORDS SUMMARY | ~2019-10-26 | XMS | Encounter Summary ---
Demographics + + + | Address | [address] | | | [place] [address] | + + + | Home Phone [...] [place] | | | | | [address] | | + + + + + Care Team Providers + +------+ + | Care Dub Room Engineer Name | Role | Phone | + +------+ + | Dajuan Jerome MD | PCP | | + +------+ + Reason for Visit + + + | Reason | Comments | + + + | Support equipment | | + + + Encounter Details +--------+ + + + + | Date | Type | Department | Care Team | Description | +--------+ + + + + | 05/09/ | Telephone | [facility] 7th | [place], | Support equipment | | 2008 | | [address] | Neli, SEAM STAYER [address] | | | | | St Mailcode: [facility] | [address] | | | | | [facility] [place], [place] | Rd [place], [place] | | | | | [address] | [address] | | | | | [phone] | | | +--------+ + + + [...]
--- OUTSIDE RECORDS SUMMARY | ~2019-10-26 | XMS | Encounter Summary ---
Demographics + + + | Address | [address] | | | [place] [address] | + + + | Home Phone [...] [place] | | | | | [address] | | + + + + + Care Team Providers + +------+ + | Care Vending Machine Servicer Name | Role | Phone | + +------+ + | Dajuan Jerome MD | PCP | | + +------+ + Encounter Details +--------+ + + + + | Date | Type | Department | Care Team | Description | +--------+ + + + + | 04/19/ | Transcribed | Allergy Clinic at | Dictation, Other | Transcribed | | 1996 | | [facility] [address] | | | | | | Ashley Acevedo | | | | | | Mailcode: OP34 [facility] | | | | | | [place] | | | | | | [facility] | | | | | | [place] [address] | | | | | | [phone] | | | +--------+ + + + [...] of this encounter Progress Notes Interface, Cooker Syrup In - 01/11/2007 2:25 AM PST [facility] [address], [place], [place] [address] April 19, 1997 [facility] [address] [facility] [place] [address] RE:Pete Orozco MR#:[id number] : [id number] Dear Umm, Ypcmexq-jcelc-bwj Pete came back to [facility] today here in [place]. We last did a full evaluation in October. He was seen by Pediatric Urology in December, status post a urinary tract infection (UTI), probably secondary to prepuce, and circumcision was performed in day surgery in January. 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 Otherwise, he has full sensation. He began independent walking about a month ago. He now lila and recovers. ORTHOPEDICS: He has very minimal tibial bowing which is probably simply secondary to intrauterine position. 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 This position may result from weak musculature in the foot. However, it is not affecting his gait at all, and my estimation is that he probably does not need any intervention or assistance. A therapist through [facility] has asked a question about his spinal position. DEVELOPMENT: As reported previously, he was registered with [facility], but he was not eligible for services! He currently says claudine and mama properly, but no other words. However, he is able to make clear his intentions and wishes both by gesturing and by directing (grabs by the hand). I did parts of the Lorena II, and the Gardner, and he is definitely functioning at age levels on the Lorena, and above 12 months on the Gardner. He will also be evaluated today by occupational therapy (OT). NEUROGENIC BOWEL: Since he moved to a normal diet, problems of constipation resolved. It has been several months since this was an issue. He now has normal formed stools, at least one per day. BLADDER FUNCTION: As a , he had normal renal ultrasound and voiding cystourethrogram (VCUG); he had a repeat ultrasound two months later which was still normal. He has a good urinary stream. He had one urinary tract infection which was almost coincidentally discovered at the time of his last full exam in October. Circumcision was performed, both to remove a possible source of UTI, and because it was requested by the parents, but postponed at as we elected to observe and save any tissue that might otherwise become necessary. Anyway, he has healed nicely after the circumcision and has no urinary difficulties otherwise. PHYSICAL EXAMINATION: Weight 11.0 kg, height 81.0 cm, head circumference 47.5 cm (all now moved up to the 50th percentile). Blood pressure 96/58. GENERAL APPEARANCE: Well male, ambulatory. No somatic abnormalities. HEENT: Normocephalic. Extraocular movements full. Pupils equal, round, and reactive to light and accommodation. Red reflexes are symmetrical. No nystagmus or strabismus. Tympanic membranes are not well seen because of cerumen. No significant oral lesions, and he has six visible teeth. SPINE: The spine is straight to my exam, and he has a well-healed, almost midline, linear scar of about 2" over the lower lumbar and sacral regions, just to the right of midline, where the lipomatous mass is. (This asymmetry may be the source of the concern about scoliosis.) LUNGS: Clear. HEART: Regular rhythm and physiologic sounds. ABDOMEN: No organomegaly or masses. GENITALIA: Normal male, circumcised, testes descended bilaterally. No hernia or hydrocele. PULSES: Normal. LYMPHATICS: Normal. ORTHOPEDICS: No contractures or deformities. Hip motions are normal. SKIN: No significant lesions. NEUROLOGICAL: Cranial nerves III, IV, , VII, IX through XII are intact. Deep tendon reflexes are symmetrical in the upper extremities, 2 on the left knee, 1 on the right knee, absent from the right ankle. Babinskis are neutral bilaterally. As described above, there is slightly diminished tone, particularly to plantarflexion at the right. DISCUSSION: Things are medically stable. He has had one UTI which probably resulted from prepuce, which resolved quickly and he has since been circumcised. Stool pattern is normal. He is on a regular diet. He has been developing very nicely, and is certainly within normal range in all categories. He will be further evaluated today by OT. Records are not clear to me. Perhaps he had his last renal ultrasound in April 1996; a note in the records from December suggests there was a more "recent" renal ultrasound. He could not be scheduled today. I think it is perfectly appropriate to suggest that it be done again sometime in the next few months. They are in [place], with interpretation and films forwarded to Dr. Malik for his clinical review. You know, Umm, everything is going so normally, that perhaps we don't need to see him quite as often as we do other children. Perhaps if he is [facility] with Dr. Cuello there in [place] in six months, that will be adequate. If there are medical problems in the interim, the issue can be referred on to us. Otherwise, a full evaluation one year from now is probably adequate. Please feel free to call if I can offer any additional clarification, liaison, or coordination. Sincerely, Robert Johnson M.D. Die Repair, Pediatrics SHAYNE /josiane A cc: documented in this encounter Plan of Treatment Not on filedocumented as of this encounter Visit Diagnoses Not on filedocumented in this encounter
--- OUTSIDE RECORDS SUMMARY | ~2019-10-26 | XMS | Encounter Summary ---
Demographics + + + | Address | [address] | | | [place] [address] | + + + | Home Phone [...] Author | [facility] | + + + | Organization | [facility] | + + + | Address | Unknown | + + + | Phone | Unavailable | + + + Support + + + + + | Name | Relationship | Address | Phone | + + + + + | Sarahi Orozco | ECON | [address] | | | | | [place] | | | | | [address] | | + + + + + Care Team Providers + +------+ + | Care Car Shagger Name | Role | Phone | + +------+ + | Dajuan Jerome MD | PCP | | + +------+ + Encounter Details +--------+ + + + + | Date | Type | Department | Care Team | Description | +--------+ + + + + | 10/02/ | Hospital | Radiology at [facility] | | | | 2009 | Encounter | [address] [facility] | | | | | | Mailcode: [id number] | | | | | | [place] | | | | | | [place], [place] | | | | | | [address] | | | | | | [phone] | | | +--------+ + + + [...] US KIDNEY & BLADDER | Routin | 10/02/2010 | | Results for this | | | e | 3:11 PM | Lipomyelomeningocele | procedure are in the | | | | PST | Neurogenic | results section. 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
--- OUTSIDE RECORDS SUMMARY | ~2019-10-26 | XMS | Encounter Summary ---
Demographics + + + | Address | [address] | | | [place] [address] | + + + | Home Phone [...] [place] | | | | | [address] | | + + + + + Care Team Providers + +------+ + | Care Instrument Repairer Steam Plant Name | Role | Phone | + [...] [address] | | | | | | [place], [place] | | | | | | [address] | | | | | | [phone] | | | +--------+ + + + [...] + | [facility] - | [address] | [place] [address] | | | [place]K | | | | + + + + + documented in this encounter Visit Diagnoses + + | Diagnosis | + + | Cellulitis and abscess of foot, except toes | + + documented in this encounter"
--- OUTSIDE RECORDS SUMMARY | ~2019-10-26 | XMS | Encounter Summary ---
Demographics + + + | Address | [address] | | | [place] [address] | + + + | Home Phone [...] Author + + + | Author | [facility] | + + + | Organization | [facility] | + + + | Address | Unknown | + + + | Phone | Unavailable | + + + Support + + + + + | Name | Relationship | Address | Phone | + + + + + | Sarahi Orozco | ECON | [address] | | | | | [place] | | | | | [address] | | + + + + + Care Team Providers + +------+ + | Care Website Programmer Name | Role | Phone | + +------+ + | Dajuan Jerome MD | PCP | | + +------+ + Encounter Details +--------+ + + + + | Date | Type | Department | Care Team | Description | +--------+ + + + + | 02/15/ | Office | General Internal | Note, Outpatient | Progress Note | | 1995 | Visit-Trans | Medicine 5 | Clinic | | | | victor hugo | Ashley Acevedo | | | | | | Mailcode: [id number] | | | | | | Outpatient Clinic | | | | | | [facility], [address] | | | | | | [place], [place] | | | | | | [address] | | | | | | [phone] | | | +--------+ + + + [...] as of this encounter Progress Notes Interface, Dividend Deposit Entry Clerk In - 01/22/2007 7:15 AM PST CLINIC DATE: 02/16/96 PEDIATRIC UROLOGY CLINIC: PROBLEM LIST: Lipomyelomeningocele. HISTORY: Pete is a dxk-lyxad-hmf child who had a lipomyelomeningocele and recent surgery. He was seen as an inpatient for consultation for possible voiding dysfunction. Postoperatively he had his catheter removed and was noted to void. This was evaluated with intermittent catheterization. The volumes were less than 20 cc. As the result of his neurosurgical procedure and his basic anatomic irregularity, we decided that a full urologic evaluation would be indicated. The history for voiding is undocumented due to the child's age; however, he seems to wet his diaper with somewhat lower than normal frequency. He has no visualized urinary stream. For the remainder of his history, please see full consult note. LABORATORY DATA: 1. Urinalysis: pH 6.5, dip negative, micro negative. 2. Renal ultrasound (): There is minimal splitting in the left renal pelvis. The left kidney measures 5.0 x 2.6 x 2.2 (14 cc). The right kidney measures 4.8 x 2.7 x 2.4 (16 cc). There is minimal splitting in the left renal pelvis. Otherwise, there is no dilation. There is no ureteral dilation. The bladder volume is 15 cc with a normal shape. 3. Voiding cystourethrogram: There is prominence to the urethral bulb; but otherwise a normal study with no reflux and complete voiding. ASSESSMENT: 1. Lipomyelomeningocele. Pete has had recent surgery for this, and postoperatively he has voided well. His parents have been counseled on the possible difficulties with voiding given his anatomic situation. They seem to understand this and he will need follow up evaluation via the Urology Service in the future. The parents have been instructed to monitor his voiding frequency and pattern, and if there are other problems, including infection, they are to let us know. PLAN: 1. Follow up in clinic on three months with renal/bladder ultrasound. 2. Urine check if there are any problems. 3. Notify us if there are other difficulties. Rohan Winters M.D. Resident, Urology Dave Malik M.D. Medical Records Coder, Urology TWF:vitaliy documented in this encounter Plan of Treatment Not on filedocumented as of this encounter Visit Diagnoses Not on filedocumented in this encounter"
--- OUTSIDE RECORDS SUMMARY | ~2019-10-26 | XMS | Encounter Summary ---
Demographics + + + | Address | [address] | | | [place] [address] | + + + | Home Phone [...] [place] | | | | | [address] | | + + + + + Care Team Providers + +------+ + | Care Grounds Worker Name | Role | Phone | [...] | +--------+ + + + + | 04/29/ | Telephone | [facility] 7th | [place], | Social work | | 2006 | | Floor [address] | Neli, METAL ROOM DENTAL TECHNICIAN [address] | consultation | | | | St Mailcode: [facility] | [address] | | | | | [facility] [place], [place] | [address] [place], [place] | | | | | [address] | [address] | | | | | [phone] | | | +--------+ + + + [...]
--- OUTSIDE RECORDS SUMMARY | ~2019-10-26 | XMS | Encounter Summary ---
Demographics + + + | Address | [address] | | | [place] [address] | + + + | Home Phone [...] Author + + + | Author | [facility] | + + + | Organization | [facility] | + + + | Address | Unknown | + + + | Phone | Unavailable | + + + Support + + + + + | Name | Relationship | Address | Phone | + + + + + | Sarahi Orozco | ECON | [address] | | | | | [place] | | | | | [address] | | + + + + + Care Team Providers + +------+ + | Care Concrete Stone Finisher Name | Role | Phone | + [...] | | 2005 | Registratio | [facility] | [address] | | | | [address] | [address] Mailcode: [address] | [place], [place] | | | | | [place], [place] | [address] | | | | | [address] | [phone] | | | | | [phone] | | | +--------+ + + + [...]
--- OUTSIDE RECORDS SUMMARY | ~2019-10-26 | XMS | Encounter Summary ---
Demographics + + + | Address | [address] | | | [place] [address] | + + + | Home Phone | | + + + | Preferred Language | Unknown | + + + | Marital Status | Single | + + + | Episcopalian Affiliation | CHR | + + + [...] [place] | | | | | [address] | | + + + + + Care Team Providers + +------+ + | Care Cut Off Saw Operator Metal Name | Role | Phone | + [...] as of this encounter Progress Notes Interface, Teacher Associate In - 09/12/2006 5:15 AM PDTCLINIC DATE: 03/03/2001 CLINIC NAME: [facility] DISCIPLINE: SPECIAL EDUCATION REFERRAL: Pete Orozco is a 5-year 2-month-old male accompanied to clinic today by his mother, Nicky Duron, to establish baseline psychometrics in Psychology and Education. Pete lives in [place] where he attends a K-5 [employer] [...] Riddles subtests of the K-ABC are more airline security representative of his academic and cognitive abilities. [...] my office at . Priscilla Cuello M.Ed. Tonguer KB:[id number] signed by Interface, Teacher Associate In at 09/12/2006 5:15 AM PDTInterf latoya, Teacher Associate In - 09/12/2006 5:15 AM PDTCLINIC DATE: [...] parents, Yamil Orozco and Nicky Duron, in [place], [place]. Also in the home is an [...] never been eligible for Early Intervention or Senior Software Qa Engineer Special Education Services. Ms. Duron expressed few [...] Design 7 Similarities 9 Mazes 10 Picture [id number] As can be seen from the above [...] CONCLUSIONS AND RECOMMENDATIONS: Pete Orozco, now 5-years 6-rmpztk-gim, was seen for a baseline assessment of [...] at . Huber Diehl, Ph.D. Psychologist DS:[id number] signed by Interface, Teacher Associate In at 09/12/2006 5:15 AM PDTdocume nted in this encounter Plan of Treatment Not on filedocumented as of this encounter Visit Diagnoses Not on filedocumented in this encounter
--- OUTSIDE RECORDS SUMMARY | ~2019-10-26 | XMS | Encounter Summary ---
Demographics + + + | Address | [address] | | | [place] [address] | + + + | Home Phone [...] [place] | | | | | [address] | | + + + + + Care Team Providers + +------+ + | Care Guard Immigration Name | Role | Phone | + [...] as of this encounter Progress Notes Fredo, Nozzle And Sleeve Worker In - 05/26/2006 1:08 AM PDTCLINIC DATE: [...] on clinical examination. Reyna Buckley M.D. RM/X64 [id number] signed by Shyann Yoo In at 05/26/2006 1:08 AM Barak huddleston, Nozzle And Sleeve Worker In - 05/26/2006 1:08 AM PDTCLINIC DATE: [...] care continues with Dr. Umm Kaufman in [place], [place]. General health is reported to have [...] with his parents and two brothers in [place], [place]. He attends first grade and reports [...] varus. Strength overall is good. He completed ezljof-xgbs-btgrps, rapid alternating movement, and sequential finger touching [...] Danny Dhaliwal for additional information. NEUROGENIC BOWEL: Pete does indeed have a neurogenic bowel without [...] 01/17/2003 rac cc: Primary care physician Family [id number] signed by Fredo, Nozzle And Sleeve Worker In at 05/26/2006 1:08 AM Barak huddleston, Nozzle And Sleeve Worker In - 05/21/2006 3:11 AM PDTCLINIC DATE: [...] bladder issues. He continues to live in [place] with his parents and two brothers. Brother Jared is 5 years of age, and brother Dave is 11 (Dave is on medication for Attention-Deficit/Hyperactivity Disorder). This is a family that struggles financially and Pete's mother may have some cognitive and memory challenges. It appears that there has been some poor follow-up regarding medication and this high school social studies teacher is very available to help monitor these issues. Currently, Pete's father is working outside the home as a cable tower operator and Nicky is home marine chronometer assembler but reports she is looking for work. Pete is a first grader at [employer] where he reports his favorite subject [...] provider and medical coverage is through the [facility] is the managed care organization. This high school social studies teacher remains very available if needed. Neli Robison LCSW Social Work BD:[id number] signed by Fredo, Nozzle And Sleeve Worker In at 05/21/2006 3:11 AM Barak huddleston, Nozzle And Sleeve Worker In - 05/21/2006 3:11 AM PDTCLINIC DATE: [...] Soto R.N., M.S.N., A.R.N.P. Nurse Practitioner SL/x36 [id number] signed by Fredo, Nozzle And Sleeve Worker In at 05/21/2006 3:11 AM Barak huddleston, Nozzle And Sleeve Worker In - 05/21/2006 3:11 AM GLADYS DATE: [...] right foot alignment. Reyna Buckley M.D. RM:x49 [id number] signed by Fredo, Nozzle And Sleeve Worker In at 05/21/2006 3:11 AM PDTInt flaquito, Nozzle And Sleeve Worker In - 05/21/2006 3:11 AM PDTCLINIC DATE: [...] catheterizing every four hours with an #8 Mexican catheter and in the past has done [...] He was catheterized today with a #10 Mexican catheter without difficulty. This obtained approximately 100 [...] PLAN: 1. Increase catheter size to #10 Mexican and catheterize every four hours. 2. Restart [...] a follow-up ultrasound. Danny Dhaliwal M.D. Clinical Cloth Shearer, Pediatric Urology DBL/X64 CC: UMM KAUFMAN MD [address] [facility] [address] [place] [address] [id number] signed by Interface, Nozzle And Sleeve Worker In at 05/21/2006 3:11 AM PDTBalta huddleston, Nozzle And Sleeve Worker In - 05/21/2006 3:11 AM PDTCLINIC DATE: [...] Bifida Program. Raul Zamora Physical Therapist WF:[id number] signed by Interface, Nozzle And Sleeve Worker In at 05/21/2006 3:11 AM [facility] umented in this encounter Plan of Treatment Not on filedocumented as of this encounter Visit Diagnoses Not on filedocumented in this encounter"
--- OUTSIDE RECORDS SUMMARY | ~2019-10-26 | XMS | Encounter Summary ---
Demographics + + + | Address | [address] | | | [place] [address] | + + + | Home Phone [...] [place] | | | | | [address] | | + + + + + Care Team Providers + +------+ + | Care Motor Racer Name | Role | Phone | + +------+ + | Dajuan Jerome MD | PCP | | + +------+ + Encounter Details +--------+ + + + + | Date | Type | Department | Care Team | Description | +--------+ + + + + | 07/13/ | Office | [facility] | Report, Outpatient | Progress Note | | 1995 | Visit-Trans | & Rehabilitation | Consultation | | | | cribed | [address] | | | | | | [address] Mailcode: | | | | | | [id number] Physician's | | | | | | [place], | | | | | | [place] [address] | | | | | | [phone] | | | +--------+ + + + [...] as of this encounter Progress Notes Interface, Farmworker Fruit In - 02/05/2007 5:02 AM PDT CLINIC DATE: 07/13/96 CLINIC NAME: [facility] DISCIPLINE: NEUROSURGERY Pete is 6 months of age. He has lipomyelomeningocele. Roughly two weeks ago mother noticed, at the grandmother's suggestion, that Pete was not using his right upper limb so spontaneously as his left. When pressed the parents had a bit of difficulty offering examples, but they feel that Pete does not wave his right upper limb so much as his left, and they feel that the quantity of complex movement is less. They cannot site any particular activities that Pete can perform with his left but not with his right. He has no obvious discomfort. EXAMINATION: Head circumference today is 44.2 cm. The anterior fontanel is flat and slack. There is no asymmetry of facial movements. Ocular movements seem normal. I watched Pete for some minutes as he squirmed on the examining table, tickling him occasionally to keep him moving. There was a slight difference in the frequency and quantity of complex movements in the right upper limb. In particular I did not see him left his right hand above the level of his shoulders so often as he did on the left side. Tone is normal in both upper limbs and all deep tendon reflexes are resent. In the lower limbs the patellar reflexes are symmetrical. The left Achilles reflex is present, but I had difficulty eliciting the right. A spine wound has healed nicely. Pete had a MR scan of the spine shortly before his operation. On the meat pickler view the cervical spinal cord is imaged. It is normal. IMPRESSION: Lipomyelomeningocele; asymmetry of upper limb movement. The neurological findings are very subtle, and I suspect that there is no threatening explanation for them. PLAN: I recommended no further investigation at this time. I invited Pete's parents to call me if they felt his signs were changing. Pete will be examined once again in August, at the [facility] in [place]. If he seems to progress in any way in the asymmetry of his movements, we can initiate an investigation at that point. Shiraz Vance Jr., M.D., F.A.A.P. Shipping And Receiving Weigher, Neurosurgery and Pediatrics [facility] A cc: Godfrey Cuello M.D. [address] [place] [phone] nterface, Farmworker Fruit In - 02/03/2007 8:04 AM PDT CLINIC DATE: 07/13/96 CLINIC NAME: [facility]IC DISCIPLINE: OCCUPATIONAL THERAPY Pete, accompanied by his parents, was seen for an initial Occupational Therapy evaluation because of concerns expressed at his four-month evaluation about some right-sided weakness as a result of his lipomyelomeningocele. Today parents report he is not involved with the program, but plans are for him to begin Early Intervention next week. Mother notes that Pete enjoys playing with a variety of toys. She notes that he has an early left hand preference and has particularly noted that he moves his right arm less when he is in his "bouncer." Today Pete was very alert and cooperative, enjoying toys and people in his environment. He does show a left hand preference, with mild overflow fisting of the right, but readily utilizes the right upper extremity when toys are placed to the that side and with only very mild difference in the quality of movement. No performance difference is noted between the two extremities when he is scored on the [facility] Test of Fine Motor Developmental Skills, and fine motor skills are placed within normal limits performance today at the six-month level of skill. It is hoped that he can began an Early Intervention program as soon as possible to help monitor his development and encourage symmetrical use of his body. It would be appropriate to reevaluate his fine motor skills at [age] year of age. Kathy Simms M.S., OTR/L Occupational Therapist CHRSITINA /elias P cc: nterface, Farmworker Fruit In - 02/03/2007 8:04 AM PDT CLINIC DATE: 07/13/96 CLINIC NAME: [facility] DISCIPLINE: Pete Orozco is almost 7 months old. He is status post repair of the lipo myelomeningocele. He is here for a follow up at the [facility]. CHIEF COMPLAINT: The chief concern of this examination is his right upper extremity. His first examination in this clinic noted an asymmetry of movement in that his left side was moving better than his right side. His right lower extremity appeared to be moving slightly better than his right upper extremity. His parents report in this clinic that this still seems to be the case, and that when Pete is sitting in his seat, he appears to be moving the left arm much better than the right. They notice no difference in the left versus the right leg, with the exception of when he is placed in a standing position, he is weight-bearing on the lateral aspect of the right foot; whereas the left foot weight bears sole down. He very easily, and was easy to examine. This examination is meant to be indicative of his motor function at this point, and is not meant to be predictive of any future functioning. EXAMINATION: RANGE OF MOTION: Range of motion is full in all extremities. MUSCLE TONE: No resistance to passive motion noted. No clonus elicited. No adventitious movements were seen. I was unable to elicit deep tendon reflexes. MOVEMENT PATTERNS: When Pete is sitting, he requires some support. He is almost to the point of being able to sit independently. It was noted when he was sitting that he showed limited movement of his right upper extremity, both in terms of excursion and strength. He was moving the left upper extremity easily up beyond the shoulder, and the right upper extremity only to shoulder height. When this was examined more closely, he was able to reach completely up against gravity with the right upper extremity in response to a toy. He was seen to move both hands equally well. When he is in the supine position, he is able to reach up against gravity easily with both upper extremities. He is able to transfer objects from azek-mz-pjzs when they are held over his face. When he is placed in the prone position, he is able to bear weight equally well on the right and left side. He is able to shift his weight easily over the right upper extremity as well as over the left upper extremity. Both lower extremities are moving reciprocally, and he is almost to the point of coming up on his hands and knees. He is beginning to crawl on his stomach, but this is very difficult for him. He shows no asymmetries or weakness when he is prone. He is able to roll from supine to prone equally well to his left and to his right. There are no abnormalities or asymmetries in his rolling patterns. When he is pulled to sit, he shows good overall right upper extremity strength. When he is pulling his body up against my fingers, he shows a consistent abduction and retraction of the right shoulder girdle. When he is pulled to sit, this is not seen on the left, and this is reproducible. His grasp and his elbow flexion feel symmetric when doing this. With supported standing, he is weight-bearing on the lateral aspect of his right foot. This also happened consistently and was reproducible, regardless of how we started. MUSCLE STRENGTH: All muscles of the lower and upper extremities appear to be present. In the right distal lower extremity, the flexions and extensions of the ankles and toes at the everters and inverters of the ankle were all present to direct stimulation. Their appearance was spontaneous, and their excursion of movement was the same as on the left distal lower extremity. MUSCULOSKELETAL: There is a spinal asymmetry with a curve, with the convexity to his left, and the concavity to his right. This is in the mid- to lower lumbar region, and is noted when he is sitting and when he is standing. We discussed ways to manage this, including direct exercise for the right upper extremity, and to attempt to alter the weight-bearing pattern when he is in supported standing. ASSESSMENT/PLAN: The patient is an almost 7-month-old, who does show a slight difference in active movement of the right versus the left extremities. The differences in movement of his right upper extremity were not consistent, in that he showed decreased active motion of the right side at some times, and at other times showed full motion. He did not seem to be favoring the right side when he was prone or attempting to crawl. The right lower extremity showed a consistent lack of ability to stand with sole down. Whether or not this is due to any neurologic problem is unknown. I would recommend that he be followed, and he has already been referred to [facility]. Recommendations at this point are to have him reach actively with his right arm up against gravity, and to stimulate his right upper extremity movement as much as they can. They should also attempt to adjust the weight-bearing of the right leg so that he is standing sole-down. These recommendations will also be sent to the [facility] physical therapists so that they can be involved with this as well. He should return to this clinic per [facility] recommendations. Raul Keating Physical Therapist DO:nohelia cc: [facility] PHYSICAL THERAPY [place] [id number] documented in this encounter Plan of Treatment Not on filedocumented as of this encounter Visit Diagnoses Not on filedocumented in this encounter
--- OUTSIDE RECORDS SUMMARY | ~2019-10-26 | XMS | Encounter Summary ---
Demographics + + + | Address | [address] | | | [place] [address] | + + + | Home Phone [...] [place] | | | | | [address] | | + + + + + Care Team Providers + +------+ + | Care Welding Equipment Repairer Supervisor Name | Role | Phone | [...] | hydrocephalu | [address] | [place], [place] | | | | | s, lumbar | [address] | [address] | | | | | region | [address] | Phone: | | | | | Procedures | [place], | [phone] | | | | | [place] EST | [place] [address] | Fax: | | | | | PATIENT | Phone: | [phone] | | | | | LEVEL V [place] | [phone] | | | | | | PHYS THERAPY | Fax: | | | | | | EVALUATION | [phone] | | | | | | [place] [...] | 04/14/ | Office | [facility] at [facility] 7th | Ngoc Fish, PNP | Right foot infection | | 2011 | Visit | Floor [address] | [address] | (Primary Dx); | | | | St Mailcode: [facility] | [facility], [place] | Lipomyelomeningocele | | | | [facility] [place], [place] | [address] | ; Monoparesis (HCC) | | | | [address] | [phone] | | | | | [phone] | | | +--------+---------+ + + + [...] + documented in this encounter Progress Notes Ngoc Fish PNP - 04/14/2012 4:58 PM PDTS: called by PT to look at right inflamed area to base of big toe. Pt here with Aunt from [place] for annual Spina Bifida appt. Area i nflamed x5d, unsure how it happened. "feels like it's going to pop open." Hx decreased sensa tion to dorsal side of foot and no sensation to foot sole as hx Spina Bifida. O: 1/2 dollar sized reddened, painful to light touch area to area at the base of the right big toe. area is firm, swollen, without fluctuance. + guarding, +foot odor. Skin colored t o piano regulator colored callous to right ball of foot area. A: Right foot infection in Spina Bifida patient with L4 to diminished L5 sensory level. R/o fracture, foreign object, cellulitis, septic arthritis, osteomyelitis. P: Sent to ER via w/c with MA assistance and Aunt. Report called to Dr. Laguna at 1620. .. documented in this en counter Plan of Treatment Not on filedocumented as of this encounter Visit Diagnoses + + | Diagnosis | + + | Right foot infection - Primary Unspecified local infection of skin and subcutaneous | | tissue | + + | Lipomyelomeningocele Spina bifida without mention of hydrocephalus, lumbar region | + + | Monoparesis (HCC) Unspecified monoplegia | + + documented in this encounter
--- OUTSIDE RECORDS SUMMARY | ~2019-10-26 | XMS | Encounter Summary ---
Demographics + + + | Address | [address] | | | [place] [address] | + + + | Home Phone [...] [place] | | | | | [address] | | + + + + + Care Team Providers + +------+ + | Care Check Writer Salesperson Name | Role | Phone | + +------+ + | Dajuan Jerome MD | PCP | | + +------+ + Encounter Details +--------+ + + + + | Date | Type | Department | Care Team | Description | +--------+ + + + + | 02/08/ | Results | Registration [id number] | | | | 1995 | Only | [address] | | | | | | Jhon Mailcode: [id number] | | | | | | [place], [place] | | | | | | [address] | | | | | | [phone] | | | +--------+ + + + [...] | + +--------+ + + + | URINALYSIS TESTS | Routin | 02/12/1996 | | Results for this | | | e | 4:30 PM | | procedure are in the | | | | PST | | results section. | + +--------+ + + + | CBC TESTS 2 | Routin | 02/09/1996 | | Results for this | | | e | 6:00 PM | | procedure are in the | | | | PST | | results section. | + +--------+ + + + | SURGICAL PATHOLOGY | Routin | 02/09/1996 | | Results for this | | | e | | | procedure are in the | | | | | | results section. | + +--------+ + + + documented in this encounter Results URINALYSIS TESTS (02/12/1996 4:30 PM PST) + + + + + + | Component | Value | Ref Range | Performed | Pathologist | | | | | At | Signature | + + + + + + | COLOR(UR) | YELLOW | | | | + + + + + + | APPEARANCE | CLEAR | | | | + + + + + + | GLUCOSE(UR) | NEG | mg/dL | | | + + + + + + | BILIRUBIN | NEG | mg/dL | | | + + + + + + | KETONES | NEG | mg/dL | | | + + + + + + | SPECIFIC | 1.01 | mg/dL | | | | GRAVITY | | | | | + + + + + + | BLOOD | TRACE | mg/dL | | | + + + + + + | PH(UR) | 7.5 | mg/dL | | | + + + + + + | PROTEIN(LAB | NEG | mg/dL | | | | ) | | | | | + + + + + + | UROBILINOGE | 0.2 | HEATHER UNITS | | | | N | | | | | + + + + + + | NITRITES | NEG | HEATHER UNITS | | | + + + + + + | LEUKOCYTE | TRACE | HEATHER UNITS | | | | ESTERASE | | | | | + + + + + + | WHITE CELLS | 0-1 | /HPF | | | + + + + + + | RED CELLS | NONE | /HPF | | | + + + + + + | NON-SQUAMOU | NONE | /HPF | | | | S EPITH | | | | | + + + + + + | SQUAMOUS | NONE | /HPF | | | | EPITHELIAL | | | | | + + + + + + | BACTERIA | NONE | /HPF | | | + + + + + + | MUCOUS | NONE | /HPF | | | + + + + + + | HYALINE | NONE | /LPF | | | | CASTS | | | | | + + + + + + | GRANULAR | NONE | /LPF | | | | CASTS | | | | | + + + + + + | CELLULAR | NONE | /LPF | | | | CASTS | | | | | + + + + + + | REDUCING | NEG | /LPF | | | | SUB URINE | | | | | + + + + + + + + | Specimen | + + | | + + + + + + + | Performing | Address | City/State/Zipcode | Phone Number | | Organization | | | | + + + + + | [facility] | [address] | [place] [address] | | | PATHOLOGY | [address] | | | + + + + + CBC TESTS 2 (02/09/1996 6:00 PM PST) + + + + + + | Component | Value | Ref Range | Performed | Pathologist | | | | | At | Signature | + + + + + + | HEMATOCRIT | 34.7 | % | | | + + + + + + + + | Specimen | + + | | + + + + + + + | Performing | Address | City/State/Zipcode | Phone Number | | Organization | | | | + + + + + | [facility] | [address] | [place] [address] | | | PATHOLOGY | [address] | | | + + + + + SURGICAL PATHOLOGY (02/09/1996) + + + + + + | Component | Value | Ref Range | Performed | Pathologist | | | | | At | Signature | + + + + + + | SURGICAL | SOURCE OF SPECIMEN: SEE | | [facility] | | | PATHOLOGY | RESULTS | | DEPARTMENT | | | | Preliminary | | OF | | | | History:CLINICAL | | PATHOLOGY | | | | HISTORYThe patient is a | | | | | | seven week old male with | | | | | | lipomyelomeningocele. | | | | | | GROSS DESCRIPTIONA | | | | | | single specimen is | | | | | | received in formalin | | | | | | labeled filum terminale. | | | | | | Itconsists of a | | | | | | fragment of white-horan, | | | | | | soft tissue measuring | | | | | | 0.4 x 0.2 x0.2 cm. The | | | | | | tissue is wrapped and | | | | | | submitted in toto in a | | | | | | singlecassette. | | | | | | All tissue sections | | | | | | taken are submitted for | | | | | | microscopic | | | | | | evaluation.Dictated by: | | | | | | Davy Hadley M.D./peterson | | | | | | FINAL DIAGNOSISSPECIMEN | | | | | | LABELED FILUM TERMINALE: | | | | | | FRAGMENT OF ADMIXED | | | | | | DISORGANIZED | | | | | | MESENCHYMAL, PERIPHERAL, | | | | | | AND CENTRAL NEURAL | | | | | | TISSUES Case | | | | | | reviewed by: Scott | | | | | | Choco | | | | | | MorrisT:02/12/96:td | | | | | | My electronic signature | | | | | | indicates that I have | | | | | | personally reviewed | | | | | | alldiagnostic slides, | | | | | | the gross and/or | | | | | | microscopic portion of | | | | | | thisreport and | | | | | | formulated the final | | | | | | diagnosis. | | | | + + + + + + + + | Specimen | + + | Other | + + + + + + + | Performing | Address | City/State/Zipcode | Phone Number | | Organization | | | | + + + + + | [facility] | [address] | [place] [address] | | | PATHOLOGY | [address] | | | + + + + + documented in this encounter Visit Diagnoses Not on filedocumented in this encounter"
--- OUTSIDE RECORDS SUMMARY | ~2019-10-26 | XMS | Encounter Summary ---
Demographics + + + | Address | [address] | | | [place] [address] | + + + | Home Phone | | + + + | Preferred Language | Unknown | + + + | Marital Status | Single | + + + | Jehovah'S Witness Affiliation | CHR | + + + [...] [place] | | | | | [address] | | + + + + + Care Team Providers + +------+ + | Care Metal Roofer Name | Role | Phone | + [...] | | | | hydrocephalu | [address] | [place], [place] | | | | | s, lumbar | [place], | [address] | | | | | region | [place] [address] | Phone: | | | | | Neurogenic | Phone: | [phone] | | | | | bladder, NOS | [phone] | Fax: | | | | | Procedures | Fax: | [phone] | | | | | MS | [phone] | | | | | | US,RETROPERI [...] + + | 04/21/ | Office | [facility] at [facility] | Robert Johnson MD | Spina Bifida without | | 2006 | Visit | Floor [address] | [address] [facility] | Mention of | | | | St Mailcode: [facility] | [place], [place] | Hydrocephalus, | | | | [facility], [place] | [address] | Unspecified Region | | | | [address] | [phone] | (Primary Dx); | | | | [phone] | | Neurogenic Bladder, | | | [...] without mass or deviation except for the MINIBUS DRIVER shunt to the left side. Chest and [...] referral portion of application for services at [facility] for [place] and given the family instructions to complete and deliver the form to [employer]. 3. Clinic nurse will elizabeth the fmaiy [...] full Spina Bifida Team including Cecilio meehan (Edger Operator) or Peditric Nurse Practitioner, Nursing, Social Work, Physical T herapy, Urology, Neurosurgery. Robert Johnson MD Edger Operator Spina Bifida Program PH: [phone] Email: [email or web address] do cumented in this encounter Plan of [...] DRAPER | [address] | [place], [place] | | | [place], POINT OF CARE | [address] | [address] | | | TESTS | | | | + + + + + | [facility] | [address] | [place], [place] | | | TESTS | [address] | [address] | | + + + + + documented in this encounter Visit Diagnoses + + | Diagnosis | + + | Spina bifida without mention of hydrocephalus, unspecified region - Primary | + + | Neurogenic bladder, NOS | + + documented in this encounter
--- OUTSIDE RECORDS SUMMARY | ~2019-10-26 | XMS | Encounter Summary ---
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 3. Scoliosis. History: This is an 8 + 2 year old male here today with both parents for routine full clinic followup. He has a history of lipomyelomeningocele repaired shortly after . He underwent de-tethering in February of 2003. Presenting symptoms were leg and back pain, and increase in right cavovarus foot deformity which had become more rigid with rigid clawing of the toes on the right foot. Shortly after de-tethering, his right foot became slightly more flexible but did not correct. A supramalleolar AFO was prescribed and was made by [facility] in the [facility] area. Parents report that he has been unable to wear this because it requires him to have a shoe that is three sizes larger than he would normally wear and it has given him sores above his ankle. I have never seen the AFO and they did not bring it with them today. Dad reports that Pete developed a blister on the left little toe approximately one week ago from rubbing on his shoes. He has been treating this with local wound care and a band-aid, and has noted improvement. Dad is concerned that the right foot still remains a problem, and that Pete seems to be bearing more weight on the lateral aspect of his foot. He has quite a bit of difficulty running. He still complains of pain, but now it is mostly in the left lower extremity. Pete's father has also noted the appearance of slight increase in asymmetry in Pete's lower back and pelvis when he is sitting and standing. On exam, in standing he bears weight well on the left lower extremity, which has good alignment. However, the right foot has marked equinovarus and cavus, such that he is bearing weight on the extreme lateral aspect of his foot. His calcaneus does not contact the floor. Toes have slight clawing at rest but can be passively straightened. The entire right lower extremity is smaller than the left. Standing his iliac crest heights are fairly level, but he does appear to have some posterior rotation of the right side. Sitting, his spine appears straight in the cervical, thoracic and upper lumbar areas but he appears to have a small curve in the lumbar area, with slight pelvic obliquity. Films in the past have demonstrated 8-12 degrees of scoliosis. He has not had x-rays since January of 2003. Sitting, right foot rests in equinovarus, with mid foot cavus. Passively, his ankle dorsiflexes to -10. I cannot passively completely correct his hind food varus. It does not correct with block test. When asked to dorsiflex his ankle, he has weak dorsiflexion, primarily using his anterior tibialis and extensor hallices longus. The mid foot cavus is rigid and uncorrectible. Along with this is a mild component of more flexible forefoot varus. Toes rest in slight clawed positive but can be passively fully corrected. He has callous over the fifth metatarsal base. Impression: rigid right foot deformity, which I do not think is amenable to bracing. I would like to have him evaluated by Dr. Madhav Cobb for his opinion regarding surgical correction. In addition I would like to have Gabriel have a followup standing AP x-ray of his spine today if possible, if not when he returns to see Dr. Cobb. I will followup on his spine films, and plan to see him when he returns for his next full clinic appointment. Reyna Buckley M.D. [id number]/[id number] P [id number] cc: Madhav Cobb M.D. documented in this encounter Plan of Treatment Not on filedocumented as of this encounter Visit Diagnoses Not on filedocumented in this encounter"
--- OUTSIDE RECORDS SUMMARY | ~2019-10-26 | XMS | Encounter Summary ---
Demographics + + + | Address | [address] | | | [place] [address] | + + + | Home Phone | | + + + | Preferred Language | Unknown | + + + | Marital Status | Single | + + + | Christianity Affiliation | CHR | + + + [...] [place] | | | | | [address] | | + + + + + Care Team Providers + +------+ + | Care Animal Nutrition Teacher Name | Role | Phone | [...] [id number] | | | | | | [place], [place] | | | | | | [address] | | | | | | [phone] | | | +--------+ + + + [...] | + + + + + | [facility] | [address] | [place] [address] | | | PATHOLOGY | [address] [...] | + + + + + | [facility] | [address] | [place] [address] | | | PATHOLOGY | [address] [...] | + + + + + | [facility] | [address] | [place] [address] | | | PATHOLOGY | [address] | | | + + + + + documented in this encounter Visit Diagnoses Not on filedocumented in this encounter"
--- OUTSIDE RECORDS SUMMARY | ~2019-10-26 | XMS | Encounter Summary ---
Demographics + + + | Address | [address] | | | [place] [address] | + + + | Home Phone [...] [place] | | | | | [address] | | + + + + + Care Team Providers + +------+ + | Care Scagliola Mechanic Name | Role | Phone | + +------+ + | Dajuan Jerome MD | PCP | | + +------+ + Encounter Details +--------+ + + + + | Date | Type | Department | Care Team | Description | +--------+ + + + + | 03/21/ | Transcribed | Allergy Clinic at | Dictation, Other | Transcribed | | 1997 | | [facility] [address] | | | | | | [place] | | | | | | Mailcode: [id number] [facility] | | | | | | [place] | | | | | | [facility] | | | | | | [place] [address] | | | | | | [phone] | | | +--------+ + + + [...] as of this encounter Progress Notes Interface, Relationship Specialist In - 12/08/2006 3:03 AM PST [facility] [address], [place], [place] [address] January 1998 UMM NG MD [address] [place] [address] [place] [address] RE:Pete Orozco MR#:[id number] Dear Umm: We saw 2-year 3-month-old Pete back in Spina Bifida Clinic in [place] today. Our last full evaluation was in April. Don [facility] 21 September 1997. Things have been medically stable. Their only concern or complaint is about pain in the right lower leg after long walks. Lipomeningocele: The only deficit is weakness with plantar flexion at the right ankle, and slight diminished sensation on the sole of his feet. He walks and runs well, and even gets up on his toes spontaneously. Deep tendon reflexes are 2/4 on the left, 1/4 on the right; Babinski's are full on the left, absent on the right. Orthopedics: The right foot is about 1 cm shorter than the left. There is a slight pes planus on the right. Otherwise, there are no deformities. Development: His expressive language is minimal an unclear, however, it sounds as if he is combining two words together; he can make his wishes known via jargon and pointing. I went ahead and did Alejandro and Gardner Screens. He passes about half the items at the two-year level on the Gardner, and spontaneously names three of four animal pictures on the Alejandro (greater than 18-month landmark). His receptive language understanding seems to be complete for age. I therefore suspect he has a minimal expressive language delay. He might be eligible for Early Intervention and I recommend that he be evaluated for language delay at the [facility] (original plans after the last evaluation were that he not be referred to the ESD until age 3, in December 1998, and this should perhaps be more accurately worked up now rather than waiting). Neurogenic Bowel: No constipation problems. Bladder Function: Continues apparently normal. No urinary tract infections, good urinary stream. In retrospect, he has only had one urinary tract infection and this was before circumcision and was probably the result of a tight prepuce. The family is attempting toilet training. I think the best way to approach this is to continue in the normal fashion. If he is not toilet trained by age 3 years, then more extensive workup should be done, for example using urodynamics. Family Situation: A new baby sister was born in December and is now doing fine. The family is currently together and living in [place]. PHYSICAL EXAMINATION: Weight 12.8 kg, height 88.5 cm (50th percentile), head circumference 49.4 cm (50th percentile). Blood pressure 109/80. GENERAL APPEARANCE: Well, male child, appropriate for stated chronologic age. No somatic abnormalities. HEENT: Normocephalic. Tympanic membranes with normal landmarks and mobility. Extraocular movements are full. Pupils are equal and reactive to light and accommodation. Red reflexes are symmetrical, no nystagmus or strabismus. He has approximately 20 teeth and they are in good order; no oral lesions. The spine is straight and there is a well-healed lipomatous mass over the sacral spine, without tenderness, hirsutism, or paresthesia. The lungs are clear. HEART: Regular rhythm and physiologic sounds. ABDOMEN: No organomegaly or masses. GENITALIA: Normal male, circumcised, testes descended bilaterally, no hernia or hydrocele. Pulses are normal. Lymphatics are normal. SKIN: No significant lesions. ORTHOPEDICS: No contractures or deformities; slightly smaller right foot with slightly diminished strength on plantar flexion, as described above. Deep tendon reflexes and Babinski's are also described above. Discussion: Things have been medically stable. He is not receiving Early Intervention Services; I believe that his development is on track, except perhaps some mild expressive language delay. Toilet training is being offered in a relaxed fashion, but he does not seem to get it yet. He is due for a renal ultrasound and that will be done later today. If toilet training does not come by age 3 years, then more extensive evaluation can be carried out, and we can do urodynamics at that time. I therefore think we should see him again about nine months from now. I think we can reassure the father that any limited ability in distant ambulation, with resultant complaint of discomfort, results from the slightly diminished motor strength and function in the right lower extremity. Nothing necessary needs to be done about this as he is already wearing high top shoes and I do not think braces are indicated. Thank you for the opportunity to see them again. He will be seen today by the rest of the team. We will see him again in 9-12 months. Sincerely, Robert Johnson M.D. Technology Architect, Pediatrics RASHARD :vitaliy documented in this encounter Plan of Treatment Not on filedocumented as of this encounter Visit Diagnoses Not on filedocumented in this encounter"
--- OUTSIDE RECORDS SUMMARY | ~2019-10-26 | XMS | Encounter Summary ---
Demographics + + + | Address | [address] | | | [place] [address] | + + + | Home Phone | | + + + | Preferred Language | Unknown | + + + | Marital Status | Single | + + + | Sabianist Affiliation | CHR | + + + [...] [place] | | | | | [address] | | + + + + + Care Team Providers + +------+ + | Care Supervisor Car Installations Name | Role | Phone | + +------+ + PCP | Unavailable | + +------+ + Encounter Details +--------+ + + + + | Date | Type | Department | Care Team | Description | +--------+ + + + + | 03/06/ | Office | | Note, Outpatient | Progress Note | | 2003 | Visit-Trans | | Clinic | | [...] as of this encounter Progress Notes Interface, Die Stamping Press Operator In - 05/30/2006 3:07 AM PDTCLINIC DATE: 03/06/2003 PEDIATRIC NEUROSURGERY CLINIC SUBJECTIVE: Pete and his brother and father returned to clinic today for a postoperative check. This child recently underwent a release of tethered cord by Dr. Nettles. He is usually followed in Spina Bifida Clinic here at the [facility]. Since surgery according to father he has had no change in his urine dysfunction and has not demonstrated any bowel problems. Father is concerned, however, that the right foot seems to be turning in or he seems to be walking more on the lateral aspect of his ankle. He has not complained of any significant pain nor has father noted any fevers or signs of infection around the incision. PHYSICAL EXAMINATION GENERAL: Today in the office, Pete is awake, alert, pleasant and cooperative. HEENT: His pupils are equal and reactive to light, and his extraocular movements appear intact. His face is symmetrical and his tongue protrudes in the midline. NEUROLOGIC: Motor strength in the upper extremities appears to be 5/5. Motor strength in the lower extremities shows good heel and toe walking with perhaps a minimal decrease in height with the right foot compared to the left foot on heel walking. There is also a suggestion of EHL weakness on the right foot when compared to the left. Otherwise finally, there appears to be some rotation inward with the right foot when compared to the left foot. I cannot find this documented in the previous history and physicals or other exams. ASSESSMENT AND PLAN: In [facility], this is a young child who had recent detethering who has what appears to be a minimal right foot weakness. I will discuss this with Dr. Nettles, and we will see if he needs to come back for an MRI scan in the near future. Otherwise, I told father to watch for signs of infection or any increased weakness or change in lower extremity function and asked him to please call us. I will also get back in touch with father regarding Dr. Nettles's decision about seeing him in the near future. Father's cellphone is as his home phone is not currently working. Christin Garcia. / [id number] / [id number] / [id number] / Tdocumented in this encounter Plan of Treatment Not on filedocumented as of this encounter Visit Diagnoses Not on filedocumented in this encounter"
--- OUTSIDE RECORDS SUMMARY | ~2019-10-26 | XMS | Encounter Summary ---
Demographics + + + | Address | [address] | | | [place] [address] | + + + | Home Phone [...] [place] | | | | | [address] | | + + + + + Care Team Providers + +------+ + | Care Applications Support Analyst Name | Role | Phone | + +------+ + | Dajuan Jerome MD | PCP | | + +------+ + Encounter Details +--------+ + + + + | Date | Type | Department | Care Team | Description | +--------+ + + + + | 03/28/ | Transcribed | Allergy Clinic at | Dictation, Other | Transcribed | | 1997 | | [facility] [address] | | | | | | [place] | | | | | | Mailcode: [id number] [facility] | | | | | | [place] | | | | | | [facility] | | | | | | [place] [address] | | | | | | [phone] | | | +--------+ + + + [...] as of this encounter Progress Notes Interface, Sumo Wrestler In - 12/08/2006 3:03 AM PST [facility] [address], [place], [place] [address] March 29, 1998 UMM NG MD [address] [place] [address] [place] [address] RE:Pete Orozco MR#:[id number] Dear Umm: This letter is in follow-up to the note of our clinic visits of February 12, 1998, when we saw 2-year-old Pete. Later in the day Dr. Vance saw him, and the parents gave history of some apparent leg and back discomfort. He wanted to do close follow-up. We think that it would be very appropriate to have you see the family in early May. If the symptoms have resolved, then we can forget about it, and that is what we expect to happen. If the symptoms persist or are worse, then he should be referred back immediately to Dr. Vance for an MRI of the lower spine, looking for spinal cord tethering. We thought that it would be easier for the family to get this taken care of locally, in the likelihood that it will resolve. Thank you for taking care of this. Please call if I can offer any clarification, at [phone]. Sincerely, Robert Johnson M.D. Refrigeration Plant Operator, Pediatrics RASHARD:vitaliy documented in this encounter Plan of Treatment Not on filedocumented as of this encounter Visit Diagnoses Not on filedocumented in this encounter"
--- OUTSIDE RECORDS SUMMARY | ~2019-10-26 | XMS | Encounter Summary ---
Demographics + + + | Address | [address] | | | [place] [address] | + + + | Home Phone | | + + + | Preferred Language | Unknown | + + + | Marital Status | Single | + + + | Jewish Affiliation | CHR | + + + [...] [place] | | | | | [address] | | + + + + + Care Team Providers + +------+ + | Care Agriculturist Name | Role | Phone | + [...] | | | | mention of | [place], [place] | | | | | | hydrocephalu | [address] | | | | | | s, lumbar | Phone: | | | | | | region | [phone] | | | | | | Neurogenic | Fax: | | | | | | bladder, NOS | [phone] | | | | | | Neurogenic [...] | | 2011 | Visit | at [facility] [address] | [address] | (Primary Dx) | | | | [place] Mailcode: | | | | | | [address] | | | | | | [place], [place] | | | | | | [address] | | | | | | [phone] | | | +--------+---------+ + + + [...] in this encounter Progress Notes Laurel Leal RN,[facility] - 06/03/2012 4:29 PM PDT [...] complex orthopedic surgery 10/26/07 DR. MERARY AYALA ([facility]) Right ankle/foot orthopedic surgery 06/2009 DR. MERARY AYALA ([facility]) Cystoscopy and bladder augmentation (ileocystoplasty [...]
--- OUTSIDE RECORDS SUMMARY | ~2019-10-26 | XMS | Encounter Summary ---
Demographics + + + | Address | [address] | | | [place] [address] | + + + | Home Phone [...] + + + | Author | [facility] | + + + | Organization | [facility] | + + + | Address | Unknown | + + + | Phone | Unavailable | + + + Support + + + + + | Name | Relationship | Address | Phone | + + + + + | Sarahi Orozco | ECON | [address] | | | | | [place] | | | | | [address] | | + + + + + Care Team Providers + +------+ + | Care Salvager Helper Name | Role | Phone | + +------+ + | Umm Kaufman MD | PCP | | + +------+ + Encounter Details +--------+ + + + + | Date | Type | Department | Care Team | Description | +--------+ + + + + | 07/01/ | Weaving Machine Operator | Pediatric Surgery | Sridevi Fonseca, | Neurogenic bowel | | 2010 | | at [place] [address] | RN [address] | (Primary Dx) | | | | [place] Mailcode: | [address] | | | | | CDJulian Castillo | [facility] [place] | | | | | [place], [place] | [address] | | | | | [address] | | | | | | [phone] | | | +--------+ + + + [...]
--- OUTSIDE RECORDS SUMMARY | ~2019-10-26 | XMS | Encounter Summary ---
Demographics + + + | Address | [address] | | | [place] [address] | + + + | Home Phone [...] Author + + + | Author | [facility] | + + + | Organization | [facility] | + + + | Address | Unknown | + + + | Phone | Unavailable | + + + Support + + + + + | Name | Relationship | Address | Phone | + + + + + | Sarahi Orozco | ECON | [address] | | | | | [place] | | | | | [address] | | + + + + + Care Team Providers + +------+ + | Care Help Desk Representative Name | Role | Phone | + +------+ + | Umm Kaufman MD | PCP | | + +------+ + Encounter Details +--------+ + + + + | Date | Type | Department | Care Team | Description | +--------+ + + + + | 07/16/ | Telephone | Pediatric Surgery | Laurel Leal, | | | 2010 | | at [facility] [address] | [address] | | | | | [place] Mailcode: | | | | | | [address] | | | | | | [place], [place] | | | | | | [address] | | | | | | [phone] | | | +--------+ + + + [...]
--- OUTSIDE RECORDS SUMMARY | ~2019-10-26 | XMS | Encounter Summary ---
Demographics + + + | Address | [address] | | | [place] [address] | + + + | Home Phone [...] [place] | | | | | [address] | | + + + + + Care Team Providers + +------+ + | Care Patent Legal Assistant Name | Role | Phone | + +------+ + | Dajuan Jerome MD | PCP | | + +------+ + Encounter Details +--------+ + + + + | Date | Type | Department | Care Team | Description | +--------+ + + + + | 03/21/ | Office | [facility] | Report, Outpatient | Progress Note | | 1997 | Visit-Trans | & Rehabilitation | Consultation | | | | cribed | [address] | | | | | | [address] Mailcode: | | | | | | [id number] | | | | | | [place], | | | | | | [place] [address] | | | | | | [phone] | | | +--------+ + + + [...] as of this encounter Progress Notes Interface, Major Donor Coordinator In - 12/08/2006 3:03 AM PST CLINIC DATE: 03/21/98 CLINIC NAME: [facility] DISCIPLINE: SOCIAL WORK Pete, 2-years 3-months of age, comes to clinic today with his parents, Yamil Orozco and Nicky Duron. This is a return visit for Pete. He has been seen in our clinic a few times for his needs related to his repaired lumbosacral lipomyelomeningocele, possible neurogenic bowel and bladder issues. The family reports that he is starting to express a little interest in using a training potty and had questions about potty training at Pete's young age. Pete lives in [place] with his parents, 7-year-old half brother Dave, and 3-month-old full brother Jared. His parents are not yet , and at this time neither are employed but are both looking for employment. Income for this family is restricted to Yamil's unemployment payment. The family also receives [employer] and [facility] assistance. Pete's medical coverage is through the [facility] [place] [facility] [place] is the managed care program. The mother reports that she is interested in finding outside employment also, but is restricted by the fact that she does not have her GED or a drivers license. A review of community resources reveals that the family still considers Dr. Umm Kaufman as Pete's primary care physician. Pete has been followed on and off through [facility]. The family moved back and forth a bit between [place] and [place] in the winter months and lost contact with those agencies. Nicky reports that they will soon be reevaluating Pete as possibly being eligible for [employer] in the future. There are no social work activities other than to make sure that medical reports from today's visit get sent to Pete's primary care physician, the [facility], as well as Dr. Kaufman. This mental health social worker was able to obtain a message phone number as this family has no phone (Pete's maternal aunt Kiana at [phone]). There are no other social work activities planned, although social work remains available as needed. Neli Robison LCSW High Climber BD:vitaliy nterface, Major Donor Coordinator In - 12/08/2006 3:03 AM [facility] DATE: 03/21/98 CLINIC NAME: [facility] DISCIPLINE: ORTHOPEDICS Pete returns for continuing care on his lipomeningocele. Generally he has been functioning quite well. The parents have a concern that there may be a diminished function on his left side. Exam today shows that he has a symmetric gait. He is able to heel and toe walk with some encouragement. He appears to have similar strength to me and is not showing any weakness. I am not able to detect any calf weakness or diminished size as well. For present, I feel there is no need for any intervention on Pete. I have suggested that we stay with the current care plan. In addition, I do not feel that there is any need for interventional bracing or other treatment. We plan on recheck at his next full appointment. Gilbert Romero M.D. Knitting Machine Mechanic, Orthopedics and Rehabilitation KAV:vitaliy nterface, Major Donor Coordinator In - 12/08/2006 3:03 AM [facility] DATE: 03/21/98 CLINIC: [facility] DISCIPLINE: PHYSICAL THERAPY Pete attended the clinic today accompanied by both parents. He is a boy of 2 years, 3 months of age who has lumbosacral myelomeningocele with essentially intact neuromotor function except for subtle distal right lower extremity weakness. Today his parents report specific concern about the status of his right lower extremity, citing the apparent existence of some numbness, his complaint of pain in the extremity, and apparent exaggeration of weakness which has taken the form of more limping with onset of fatigue than they have previously observed. Pete was awake, alert and pleasantly cooperative throughout the course of my evaluation. He was spontaneously and vigorously active and displayed a wide variety of apparently age appropriate gross motor activities. These included running, jumping, walking, kicking a ball with either foot, and throwing a ball with directionality with either hand. He was able to demonstrate walking on his toes and heels, and in fact walked on his heels going backwards. He squats and arises and is able to stand on either foot independently more than one second. 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 He does not have such residual metatarsus adductus on the right. I did not measure a leg length discrepancy. He appears to have girth discrepancy with the right lower extremity smaller, but this was difficult to correlate with any functional strength testing. Pete's parents report he is not receiving Early Intervention or other services at this time. As a [id number] boy, he is apparently displaying good consolidation of his gross motor and postural control skills with subtle and equivocal distal right lower extremity weakness. I applauded the parents for discerning some apparent change affecting motor and sensory status in the right lower extremity and the reader is referred to Dr. Vance's note from this date regarding further assessment of this. I did not make any specific recommendations for physical therapy intervention at this time. I will plan to evaluate him at his next full team clinic appointment and will review his musculoskeletal status and functional neuromotor capabilities. In the meantime, I will be available to address questions related to this report at . Raul Zamora Physical Therapist WF:olivia nterface, Major Donor Coordinator In - 12/08/2006 3:03 AM [facility] DATE: 03/21/98 CL[facility]IC: [facility] DISCIPLINE: PEDIATRIC UROLOGY SUBJECTIVE: Pete is a 2 year, 3-month-old boy with a lumbosacral lipomyelomeningocele. Prior studies have demonstrated fairly good bladder emptying without evidence of vesicoureteral reflux. He had a urinary tract infection (UTI) in and subsequently underwent circumcision in . Since then he has had no UTI or unexplained fever. His parents state he voids on his own with a good caliber stream. He presently is undergoing potty-training but continues to wear diapers and voids into them most of the time. Attempts at arranging renal bladder ultrasound prior to clinic were made but were unsuccessful. He will therefore undergo renal bladder ultrasound today after he leaves the clinic. OBJECTIVE: Well appearing boy ambulating with ease. Abdomen soft, nontender, nondistended. Bladder is not palpable. There are no palpable flank masses. : Phallus circumcised and appears normal. Urethral meatus is located in normal glandular location and is patent. Testes and epididymes are palpable and descended bilaterally. Urine specimen obtained today is normal biochemically and microscopically. ASSESSMENT: Lumbosacral lipomyelomeningocele without obvious evidence of significant bladder involvement. PLAN: 1. He is scheduled to undergo renal bladder ultrasound after leaving clinic. This will be followed up. 2. Pete will otherwise continue with his current care which includes voiding on his own. 3. If the renal bladder ultrasound is normal he will follow-up with Pediatric Urology in the [facility] in one year. Josh Wayne M.D. Resident, Urology Dave Malik M.D., F.A.A.P. Professor, Surgery and Pediatrics JJ:olivia nterface, Major Donor Coordinator In - 12/08/2006 3:03 AM PST CLINIC DATE: 03/21/98 CLINIC: [facility] DISCIPLINE: PEDIATRIC NEUROSURGERY Pete is 2 years, 3 months of age. He has lipomyelomeningocele. Pete empties his bladder without catheterization and has had no infections. The past week he has had left leg pain with walking. He runs in normal fashion but father says his tolerance of distance has been diminished by leg pain. He has no back pain. PHYSICAL EXAMINATION: The spine wound is nicely healed. There is no limitation of straight leg raising. The popliteal angle is 0 on both sides. The legs have the same circumference. The left foot is slightly more narrow than the right. Patellar reflexes are brisk. Right Achilles' reflex is present, the left absent. His gait looks normal to me. IMPRESSION: Lipomyelomeningocele. I do not know what to make of the left leg pain. He has only had this symptom for one week. PLAN: I asked him to return in two months. If his leg pain resolves, his parents can cancel the appointment. Shiraz Vance Jr., M.D., F.A.A.P. Reinforced Ironworker, Neurosurgery and Pediatrics PATRICK:olivia documented in this encounter Plan of Treatment Not on filedocumented as of this encounter Visit Diagnoses Not on filedocumented in this encounter"
--- OUTSIDE RECORDS SUMMARY | ~2019-10-26 | XMS | Encounter Summary ---
Demographics + + + | Address | [address] | | | [place] [address] | + + + | Home Phone [...] [place] | | | | | [address] | | + + + + + Care Team Providers + +------+ + | Care Cobbler Mckay Name | Role | Phone | + +------+ + | No Pcp Per Patient | PCP | Unavailable | + +------+ + Encounter Details +--------+ + + + + | Date | Type | Department | Care Team | Description | +--------+ + + + + | 03/08/ | Hospital | Vascular Access at | | | | 2014 | Encounter | [facility] [address] | | | | | | [facility] | | | | | | [facility] | | | | | | [place], [place] | | | | | | [address] | | | | | | [phone] | | | +--------+ + + + [...]
--- OUTSIDE RECORDS SUMMARY | ~2019-10-26 | XMS | Encounter Summary ---
Demographics + + + | Address | [address] | | | [place] [address] | + + + | Home Phone [...] [place] | | | | | [address] | | + + + + + Care Team Providers + +------+ + | Care Accounting Representative Name | Role | Phone | + +------+ + | Dajuan Jerome MD | PCP | | + +------+ + Encounter Details +--------+ + + + + | Date | Type | Department | Care Team | Description | +--------+ + + + + | 02/14/ | Transcribed | Allergy Clinic at | Dictation, Other | Transcribed | | 1995 | | [facility] [address] | | | | | | [address] | | | | | | Mailcode: [address] [facility] | | | | | | [place] | | | | | | [facility] | | | | | | [place] [address] | | | | | | [phone] | | | +--------+ + + + [...] as of this encounter Progress Notes Interface, Relay Operator In - 01/22/2007 7:15 AM PST [address] [address] or February 12 1996 GEOFF KAUFMAN MD [address] [facility] [place] [address] RE:Pete Orozco MR#:[id number] : 89 [address] Kaufman: Pete was discharged from [facility] on 02-14-96, five days after the [...] ultrasound today as an outpatient here in [place], and subsequently his family will be returning to [place]. I shall see Pete in about two weeks to check on the healing of his wound. In the longer term, we shall follow Pete in [facility]. Pete's care has been a great pleasure. Do not hesitate to contact me if I can assist you in any other way. Very best regards, Shiraz Vance Jr., M.D., F.A.A.P. Mini Bar Attendant, Neurosurgery and Pediatrics PATRICK/giuseppe P cc: Robert Johnson M.D. Mini Bar Attendant, Pediatrics documented in this encounter Plan of Treatment Not on filedocumented as of this encounter Visit Diagnoses Not on filedocumented in this encounter"
--- OUTSIDE RECORDS SUMMARY | ~2019-10-26 | XMS | Encounter Summary ---
Demographics + + + | Address | [address] | | | [place] [address] | + + + | Home Phone [...] [place] | | | | | [address] | | + + + + + Care Team Providers + +------+ + | Care Blow Molding Machine Operator Name | Role | Phone | + +------+ + | Dajuan Jerome MD | PCP | | + +------+ + Encounter Details +--------+ + + + + | Date | Type | Department | Care Team | Description | +--------+ + + + + | 09/02/ | Office | [facility] | Report, [...] as of this encounter Progress Notes Interface, Metal Die Finisher In - 09/25/2006 5:04 AM PSTCLINIC DATE: 09/02/2000 CLINIC NAME: [facility] DISCIPLINE: PEDIATRIC UROLOGY SUBJECTIVE: Pete is a [age] year old male with myelomeningocele and neurogenic bowel and bladder. This is a urology specialty only visit. Pete has had problems with continuous urinary incontinence and fecal incontinence. Recent ultrasound showed no abnormality of the kidneys. He was begun on an intermittent catheterization program in May of 2000 using 8 Nigerian straight catheters every four hours. This has decreased his daytime wetting dramatically. However, he still has small amounts of urine in his diaper. He is fecally incontinent at least twice per day into the diaper, as well. When they first initiated doing catheterization, he developed a urinary tract infection (UTI, which was treated with oral antibiotics, and he has had no problems since that time. He does not catheterize overnight and in the morning his diaper is soaked. Review of his voiding logs (which is placed in his hospital chart) reveals voiding volumes of anywhere from one to six ounces. Average voided volume is roughly two ounces. He is then catheterized immediately after voiding for one, two, or four ounces on average, approximately two and one-half ounces. His day leakage is all marked out at either level 1 or 2. Urinalysis today is biochemically and microscopically normal. He is on no medications. ASSESSMENT: 1) Neurogenic bladder. 2) Neurogenic bowel. PLAN: 1) Continue intermittent catheterization every four hours with an 8 Nigerian catheter. 2) Add Ditropan, 4 cc PO BID. The risks and benefits of the medication were discussed including problems of constipation, heat intolerance, etc. 3) Dulcolax suppository Q PM after dinner following by placing the child on the toilet. Handouts on bowel care and bowel protocol were given to the family. 4) Follow-up at next scheduled full clinic for reevaluation. Danny Dhaliwal M.D. [id number] signed by Interface, Metal Die Finisher In at 09/25/2006 5:04 AM PSTdocume nted in this encounter Plan of Treatment Not on filedocumented as of this encounter Visit Diagnoses Not on filedocumented in this encounter"
--- OUTSIDE RECORDS SUMMARY | ~2019-10-26 | XMS | Encounter Summary ---
Demographics + + + | Address | [address] | | | [place] [address] | + + + | Home Phone [...] [place] | | | | | [address] | | + + + + + Care Team Providers + +------+ + | Care Procedure Rn Name | Role | Phone | [...] of this encounter Progress Notes Interface, Senior Front End Engineer In - 08/09/2005 5:02 AM PDT [id number] [facility] Date: 07/02/2005 Clinic Name: [facility] Subjective: Pete was seen for [...] the [facility]. Karoline MorrisNIonP. / [id number] / [id number] / [id number] / Electronically signed by Soha Alfaro 08-08-2005 07:59:33 AM documented i n this encounter Plan of Treatment Not on filedocumented as of this encounter Visit Diagnoses Not on filedocumented in this encounter"
--- OUTSIDE RECORDS SUMMARY | ~2019-10-26 | XMS | Encounter Summary ---
Demographics + + + | Address | [address] | | | [place] [address] | + + + | Home Phone [...] + + + | Author | [facility] | + + + | Organization | [facility] | + + [...] [place] | | | | | [address] | | + + + + + Care Team Providers + +------+ + | Care Heating Unit Mechanic Name | Role | Phone | [...] | | [facility] | Diagnoses | [facility], | Cdr Spina | | [...] | Procedures | [address] | [place], [place] | | | | | [place] | [address] | [address] | | | | | PATIENT | [address] | Phone: | | | | | L[address] MM, | [place], | [phone] | | | | | [place] | [place] [address] | Fax: | | | | | | Phone: | [phone] | | | | | | [phone] | | | | | | | Fax: | | | | | | | [phone] | | +--------+--------+ + + + + Encounter Details +--------+---------+ + + + | Date | Type | Department | Care Team | Description | +--------+---------+ + + + | 04/07/ | Office | Urology -Pediatric | Justice Douglas, | Neurogenic bladder, | | 2010 | Visit | [address] | [address] [facility] | NOS; | | | | Mailcode: [address] | [address] | Lipomyelomeningocele | | | | [place] | [place], [place] | ; Neurogenic bowel | | | | [place], [place] | [address] | | | | | [address] | [phone] | | | | | [phone] | | | +--------+---------+ + + + [...] Pediatric Urology Clinic Note Patient: Pete Orozco [id number] Date of Visit: 04/07/2011 Attending Provider: Naty Douglas MD Patient presents with: Neurogenic bladder - Neurogenic bowel/Lipomyelomeningocele Follow-up visit History of Present Illness: Pete Orozco is a 15 y.o. Male with a [facility] who has NGB d ysfunction Recent [...] not sure. - No AFOs - NO BORDER GUARD shunt. - No Prior abdominal surgeries. - [...] complex orthopedic surgery 10/26/07 DR. MERARY AYALA ([facility]) Right ankle/foot orthopedic surgery 06/2009 DR. MERARY AYALA ([facility]) Recent Foot surgery at [facility]- Has soft boot and using crutches currently. [...] now live with their father, Yamil, in [place], [place] . Last year he lived with his mother, Nicky, in [place], [place]. His parents in 2008. Pete has [...] to check his urethra. Family came from [facility] and was unhappy about not being scheduled for surgery and more s o by their appointment with Dr. Loera being cancelled at the last minute (his office claims they were notified but father denies getting the message). If Dr. Loera cannot eval and operate on him when he returns I told his father that I could place the cecostomy tube at the time. We will contact Dr. Loera's cylinder head assembler and see if we can coordinate a procedure this summer. 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
--- OUTSIDE RECORDS SUMMARY | ~2019-10-26 | XMS | Encounter Summary ---
Demographics + + + | Address | [address] | | | [place] [address] | + + + | Home Phone [...] [place] | | | | | [address] | | + + + + + Care Team Providers + +------+ + | Care Cigarette Carton Sealer Name | Role | Phone | + +------+ + | Umm Kaufman MD | PCP | | + +------+ + Reason for Visit + + + | Reason | Comments | + + + | Postoperative visit | surg. 06/26/2011 | + + + | Neurogenic bladder | Lipomyelomeningocele | + + + Encounter Details +--------+---------+ + + + | Date | Type | Department | Care Team | Description | +--------+---------+ + + + | 07/28/ | Office | Urology -Pediatric | Justice Douglas, | Neurogenic bladder, | | 2010 | Visit | [address] | [address] [facility] | NOS; | | | | Mailcode: CDW6 | [address] | Lipomyelomeningocele | | | | [place] | [place], [place] | ; Neurogenic bowel | | | | [place], [place] | [address] | | | | | [address] | [phone] | | | | | [phone] | | | +--------+---------+ + + + [...] + + + | Blood Pressure | 122/67 | 07/28/2011 11:02 AM | | | | | PDT | | + + + + + | Pulse | 86 | 07/28/2011 11:02 AM | | | | | PDT [...] | 53.6 kg (118 lb 2.7 | 07/28/2011 11:02 AM | | | | oz) | PDT | | + + + + + | Height | 170.8 cm (5' 7.24") | 07/28/2011 11:02 AM | | | | | PDT | | + + + + + | Body Mass Index | 18.37 | 07/28/2011 11:02 AM | | | | | PDT | | + + + + + documented in this encounter Patient Instructions Patient Instructions Priscilla Eng RN - 07/28/2011 11:32 AM PDT1) Catheterize every 3 bety rs during the day time via penis 2) Irrigate once daily with 30-60 ml .9% NaCl. Catheterize to empty bladder, then instill 60ml NaCl into bladder via catheter, pull back into syringe to remove the saline and mucous from bladder. 3) For night discomfort or fullness, catheterize If needed 4) Apply Bacitracin to end of penis 3 times per day. Call if redness/irritation persists o r worsens. Call for fever, abdominal pain, vomiting, or any other questions:. [phone] during clin ic hours 8:30-430 PM Mon through Thursday). After clinic hours call [phone] and ask for refrigeration mechanic helper pediatric urology resident. documented in this encounter Progress Notes Priscilla Eng RN - 07/28/2011 4:52 PM PDTPatient education: After Visit Summary given an d reviewed with Pete and his uncle . Understanding stated. No questions at this time. Additional staff support provided to the patient during this encounter included: Provided instructions to patient's uncle. Time spent educating patient during this encounter 10 minutes. Justice Maddox MD - 07/27/2011 8:03 PM PDT Pediatric Urology Clinic Note Patient: Pete Orozco [id number] Date of Visit: 07/28/2011 Attending Provider: Naty Douglas MD Patient presents with: Postoperative visit - surg. 06/26/2011 Neurogenic bladder - Lipomyelomeningocele History of Present Illness: Pete Orozco is a 15 y.o. male who has a bladder augment ation and Chait tube placed 1 month ago. Couldn't make several post op apts due to transpor tation problems. Past Medical History: Past Medical History Diagnosis [...] and to the right noted on exam-9-04 Lipomyelomeningocele Past Surgical History: Past Surgical History Procedure Date Pr release tethered spinal cord,lumbr 02/20/2003 First repair, release of lipomyelomeningocele 01/1996 Right ankle/foot orthopedic surgery 12/2004 DR. LUNA COTTRELL Right ankle/foot complex orthopedic surgery 10/26/07 DR. MERARY AYALA ([facility]) Right ankle/foot orthopedic surgery 06/2009 DR. MERARY AYALA ([facility]) Cystoscopy and bladder augmentation (ileocystoplasty with 30 cm of small bowel) 011 Laparoscopic chait cecostomy tube placement 06/26/2011 Family History Problem Relation Non-contributory No other [...] . OXYBUTYNIN CHLORIDE 5 MG TAB Take 1 Tab by mouth three times daily as needed. OXYCODONE 5 MG TAB Take 1-2 Tabs by mouth every six hours as needed for severe pain. POLYETHYLENE GLYCOL 3350 17 GRAM/DOSE ORAL POWDER Take 17 g by mouth once daily. SULFAMETHOXAZOLE-TRIMETHOPRIM 400 MG-80 MG TAB Take 1 Tab by mouth once daily. Begin taking once you have completed the prescription of ciprofloxacin. Allergies: Allergies Allergen Reactions Amoxicillin Rash Latex Hives and Itching Morphine Hives and Swelling Review of Systems: General: negative. Physical Exam: General: Well developed, well nourished. Ht 170.8 cm (5' 7.24") (42 %ile), Wt 53.6 kg (118 lbs 2.7 oz) (28 %ile), Weight for age(%) 27.91%, BMI for age(%) 21.11%, Length for age(%) 41.83%, BP 122/67, Pulse 86, BMI 18.37 k g/(m^2). Abdomen: Soft, Non-distended, Non-tender. Well healed scar. SP and Chait in place. : Lockett in place. Meatus with small erosion. Impression: NGB s/p Ileocystoplasty 1. Neurogenic bladder, NOS US KIDNEY & BLADDER 2. Lipomyelomeningocele US KIDNEY & BLADDER 3. Neurogenic bowel US KIDNEY & BLADDER Plan: -Remove SP tube -CIC every 3 hrs during the daytime - FU SB clinic with renal us in 6 months. - Irrigate bladder daily with saline. Naty Douglas MD, FAAP, FACS construction framer Pediatric Urology docume nted in this encounter Plan of Treatment Not on filedocumented as of this encounter Results US KIDNEY & BLADDER (04/14/2012 2:43 PM PDT) [...] | | | | | | augmentation inAugu | | | | | | 2010 [...] | | | | | lester / Arline Joceline | | | | | | 04/14/2012 [...]
--- OUTSIDE RECORDS SUMMARY | ~2019-10-26 | XMS | Encounter Summary ---
Demographics + + + | Address | [address] | | | [place] [address] | + + + | Home Phone [...] [place] | | | | | [address] | | + + + + + Care Team Providers + +------+ + | Care Call Center Team Leader Name | Role | Phone | + +------+ + | Dajuan Jerome MD | PCP | | + +------+ + Encounter Details +--------+ + + + + | Date | Type | Department | Care Team | Description | +--------+ + + + + | 10/02/ | Insulation Board Calender Operator | [facility] 7th | Robert Johnson MD | Lipomyelomeningocele | | 2009 | | Floor [address] | [address] | ; Neurogenic | | | | St Mailcode: [facility] | [place], [place] | bladder, NOS | | | | [facility] [place] | [address] | | | | | [address] | [phone] | | | | | [phone] | | | +--------+ + + + [...] | | + +---------+ + + | [facility] DEPARTMENT OF | | | | | RADIOLOGY | | | | + +---------+ + + documented in this encounter Visit Diagnoses + + | Diagnosis | + + | 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
--- OUTSIDE RECORDS SUMMARY | ~2019-10-26 | XMS | Encounter Summary ---
Demographics + + + | Address | [address] | | | [place] [address] | + + + | Home Phone [...] [place] | | | | | [address] | | + + + + + Care Team Providers + +------+ + | Care Senior Search Marketing Analyst Name | Role | Phone | [...] [place] | NOS; | | | | [place] | [address] | Lipomyelomeningocele | | | | [place] | [place], [place] | ; Unspecified | | | | [place], [place] | [address] | urinary incontinence | | | | [address] | [phone] | | | | | [phone] | | | +--------+---------+ + + + [...] as of this encounter Progress Notes Bhavna Vedruzco PNP - 11/29/2009 9:26 AM PST Addended [...] | + +--------+ + + + | NM | Routin | 11/15/2009 | Neurogenic | Results for this | | URETHROCYSTOGRAM+VOI | e | | bladder, NOS | procedure are in the | | DING | | | Lipomyelomeningocele | results section. | | | | | Unspecified | | | | | | urinary incontinence | | + +--------+ + + + | NM INTRAABDOMINAL | Routin | 11/15/2009 | Neurogenic | Results for this | | PRESSURE TEST | e | | bladder, NOS | procedure are in the | | | | | Lipomyelomeningocele | results section. | | | | | Unspecified | | | | | | urinary incontinence | | + +--------+ + + + | NM URINE VOIDING | Routin | 11/15/2009 | Neurogenic | Results for this | | PRESSURE STUDY | e | | bladder, NOS | procedure are in the | | | | | Lipomyelomeningocele | results section. | | | | | Unspecified | | | | | | urinary incontinence | | + +--------+ + + + | NM ANAL/URINARY | Routin | 11/15/2009 | Neurogenic | Results for this | | MUSCLE STUDY | e | | bladder, NOS | procedure are in the | | | | | Lipomyelomeningocele | results section. | | | | | Unspecified | | | | | | urinary incontinence | | + +--------+ + + + | NM COMPLEX | Routin | 11/15/2009 | Neurogenic | Results for this | | CYSTOMETROGRAM | e | | bladder, NOS | procedure are in the | | | | | Lipomyelomeningocele | results section. | | | | | Unspecified | | | | | | urinary incontinence | | + +--------+ + + + | NM INJECTION FOR | Routin | 11/15/2009 | Neurogenic | Results for this | | BLADDER X-RAY | e | | bladder, NOS | procedure are in the | | | | | Lipomyelomeningocele | results section. | | | | | Unspecified | | | | | | urinary incontinence | | + +--------+ + + + documented in this encounter Results NM INJECTION FOR BLADDER X-RAY (11/15/2009) + + + | Narrative | Performed At | + + + | See progress note | | + + + NM ANAL/URINARY MUSCLE STUDY (11/15/2009) + + + | Narrative | Performed At | + + + | See progress note | | + + + NM URINE VOIDING PRESSURE STUDY (11/15/2009) + + + | Narrative | Performed At | + + + | See progress note | | + + + NM INTRAABDOMINAL PRESSURE TEST (11/15/2009) + + + | Narrative | Performed At | + + + | See progress note | | + + + NM COMPLEX CYSTOMETROGRAM (11/15/2009) + + + | Narrative | Performed At | + + + | See progress note | | + + + NM URETHROCYSTOGRAM+VOIDING (11/15/2009) + + + | Narrative [...]
--- OUTSIDE RECORDS SUMMARY | ~2019-10-26 | XMS | Encounter Summary ---
Demographics + + + | Address | [address] | | | [place] [address] | + + + | Home Phone [...] [place] | | | | | [address] | | + + + + + Care Team Providers + +------+ + | Care Field Rep Name | Role | Phone | + +------+ + | No Pcp Per Patient | PCP | Unavailable | + +------+ + Encounter Details +--------+ + + + + | Date | Type | Department | Care Team | Description | +--------+ + + + + | 10/05/ | Ancillary | Registration [id number] | | | | 2006 | Registratio | [facility] | | | | | n | [address] Mailcode: RPB07 | | | | | | [place], [place] | | | | | | [address] | | | | | | [phone] | | | +--------+ + + + [...]
--- OUTSIDE RECORDS SUMMARY | ~2019-10-26 | XMS | Encounter Summary ---
Demographics + + + | Address | [address] | | | [place] [address] | + + + | Home Phone [...] [place] | | | | | [address] | | + + + + + Care Team Providers + +------+ + | Care Supervisor Cutting Department Name | Role | Phone | + +------+ + | Umm Kaufman MD | PCP | | + +------+ + Reason for Visit + + + | Reason | Comments | + + + | Neurogenic bladder | Lipomyelomeningocele-review U/S from today | + + + | Neurogenic Bowel | | + + + | Follow-up visit | | + + + | Erroneous Encounter | | | - Disregard | | + + + Office Visit - E/M Services (Routine) +--------+--------+ + + + + | Status | Reason | Specialty | Diagnoses / | Referred By | Referred To | | | | | Procedures | Contact | Contact | +--------+--------+ + + + + | Closed | | Pediatric | Diagnoses | Shae, | [facility] | | | | Urology | Neurogenic | Umm Salceod MD | Peds 7 Dch | | | | | bladder, NOS | PEDS | [address] [facility] | | | | | | SPECIALISTS | | | | | | | OF [place] | Mailcode: | | | | | | [address] | [address] | | | | | | [address] | [place] | | | | | | [address] | [place], [place] | | | | | | [place], | [address] | | | | | | [place] [address] | Phone: | | | | | | Phone: | [phone] | | | | | | [phone] | Fax: | | | | | | Fax: | [phone] | | | | | | [phone] | | +--------+--------+ + + + + Encounter Details +--------+---------+ + + + | Date | Type | Department | Care Team | Description | +--------+---------+ + + + | 02/01/ | Office | Urology -Pediatric | Justice Douglas, | Neurogenic bladder, | | 2011 | Visit | [address] [facility] | [facility] [facility] | NOS; | | | | Mailcode: CDW6 | [address] | Lipomyelomeningocele | | | | [place] | [place], [place] | ; Neurogenic bowel; | | | | [place], [place] | [address] | EE-CANCELED | | | | [address] | [phone] | | | | | [phone] | | | +--------+---------+ + + + [...] encounter Progress Notes Justice Douglas MD - 02/04/2012 9:18 PM PDT This encounter was opened in error. Please disregard this note. 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
--- OUTSIDE RECORDS SUMMARY | ~2019-10-26 | XMS | Encounter Summary ---
Demographics + + + | Address | [address] | | | [place] [address] | + + + | Home Phone [...] [place] | | | | | [address] | | + + + + + Care Team Providers + +------+ + | Care Consultant In Ergonomics And Safety Name | Role | Phone | + +------+ + | No Pcp Per Patient | PCP | Unavailable | + +------+ + Encounter Details +--------+ + + + + | Date | Type | Department | Care Team | Description | +--------+ + + + + | 08/05/ | Ancillary | Registration [id number] | Robert Johnson MD | | | 2005 | Registratio | [facility] | [address] | | | | [address] | [address] Mailcode: RPB07 | [place], [place] | | | | | [place], [place] | [address] | | | | | [address] | [phone] | | | | | [phone] | | | +--------+ + + + [...]
--- OUTSIDE RECORDS SUMMARY | ~2019-10-26 | XMS | Encounter Summary ---
Demographics + + + | Address | [address] | | | [place] [address] | + + + | Home Phone [...] [place] | | | | | [address] | | + + + + + Care Team Providers + +------+ + | Care Real Estate Attorney Name | Role | Phone | + [...] | | bowel | Maritza Ferreira | [facility] | | | | | Lipoma of | [place], [place] | for Health | | | | | other | [address] | and Healing, | | | | | specified | Phone: | Building 1, | | | | | sites | [phone] | 3rd Floor | | | | | Procedures | Fax: | [place], [place] | | | | | X-RAY | [phone] | [address] | | | | | CYSTOGRAM, | | Phone: | | | | | VOID | | [phone] | | | | | W/HYDRODYN | | Fax: | | | | | W/URETHRCYST | | [phone] | | | | | & INJECTION [...] | | bifida | PEDS | [facility] | | | | | without | SPECIALISTS | Mailcode: | | | | | mention of | OF [place] | [facility] | | | | | hydrocephalu | [address] | [place], [place] | | | | | s, lumbar | [address] | [address] | | | | | region | [address] | Phone: | | | | | Neurogenic | [place], | [phone] | | | | | bladder, NOS | [place] [address] | Fax: | | | | | Procedures | Phone: | [phone] | | | | | MM | [phone] | | | | | | | Fax: | | | | | | | [phone] | | + +--------+ + + + + Encounter Details +--------+---------+ + + + | Date | Type | Department | Care Team | Description | +--------+---------+ + + + | 12/18/ | Office | Urology -Pediatric | Justice Douglas, | Neurogenic bladder, | | 2010 | Visit | [address] | [address] [facility] | NOS; Neurogenic | | | | Mailcode: CDW6 | [address] | bowel; Lipoma of | | | | [place] | [place], [place] | other specified | | | | [place], [place] | [address] | sites | | | | [address] | [phone] | | | | | [phone] | | | +--------+---------+ + + + [...] Pediatric Urology Clinic Note Patient: Pete Orozco [id number] Date of Visit: 12/18/2010 Attending Provider: Naty Douglas MD History of Present Illness: Pete Orozco is a 14 y.o. Male [facility] He come s in today for f/u. [...] complex orthopedic surgery 10/26/07 DR. MERARY AYALA ([facility]) Right ankle/foot orthopedic surgery 06/2009 DR. MERARY AYALA ([facility]) Family History Problem Relation Age of Onset [...] now live with their father, Yamil, in [place], [place] . Last year he lived with his mother, Nicky, in [place], [place]. His parents in 2008. Pete has an older brother, Steven. Freeman is a 9th-grade student ([phone]). Review of Systems: General: negative. Physical Exam: [...] UT reconstruction. Naty Douglas MD, FAAP, FACS hairspring assembler Pediatric Urology documented in this en counter [...]
--- OUTSIDE RECORDS SUMMARY | ~2019-10-26 | XMS | Encounter Summary ---
Demographics + + + | Address | [address] | | | [place] [address] | + + + | Home Phone [...] [place] | | | | | [address] | | + + + + + Care Team Providers + +------+ + | Care Organic Gardening Teacher Name | Role | Phone | + +------+ + | Umm Kaufman MD | PCP | | + +------+ + Encounter Details +--------+ + + + + | Date | Type | Department | Care Team | Description | +--------+ + + + + | 12/18/ | Orders Only | [facility] at [facility] 7th | Lj Burgos, | | | 2010 | | Floor [address] | | | | | St Mailcode: [facility] | | | | | | [facility] [place] | | | | | | [address] | | | | | | [phone] | | | +--------+ + + + [...]
--- OUTSIDE RECORDS SUMMARY | ~2019-10-26 | XMS | Encounter Summary ---
Demographics + + + | Address | [address] | | | [place] [address] | + + + | Home Phone [...] [place] | | | | | [address] | | + + + + + Care Team Providers + +------+ + | Care Forensic Structural Engineer Name | Role | Phone | [...] | 10/15/ | Telephone | [facility] at [facility] 7th | Robert Johnson MD | Spina bifida; | | 2008 | | Floor [address] | [address] | Hematuria | | | | St Mailcode: [facility] | [place], [place] | | | | | [facility], [place] | [address] | | | | | [address] | [phone] | | | | | [phone] | | | +--------+ + + + [...]
--- OUTSIDE RECORDS SUMMARY | ~2019-10-26 | XMS | Encounter Summary ---
Demographics + + + | Address | [address] | | | [place] [address] | + + + | Home Phone [...] [place] | | | | | [address] | | + + + + + Care Team Providers + +------+ + | Care Drier And Evaporator Operator Name | Role | Phone | + +------+ + PCP | Unavailable | + +------+ + Encounter Details +--------+ + + + + | Date | Type | Department | Care Team | Description | +--------+ + + + + | 03/11/ | Office | [facility] | Note, [...] as of this encounter Progress Notes Interface, Mason Apprentice In - 06/15/2005 11:13 AM PDT [id number] [facility] Date: 03/11/2005 Clinic: Pediatric Orthopedic Clinic Pete is a 9-year-old young man with a history of a lipomyelomeningocele. I performed soft tissue surgery on his right foot and was concerned because he came back with a wet cast and skin maceration. We lost some of our correction of his foot because we had to leave him out of the cast for a few weeks. However, today, he comes back to clinic about 6 weeks later, and his foot really looks quite good. He has active dorsiflexion of his foot. The transfer is working nicely to the midfoot region. He is able to dorsiflex to a couple of degrees above neutral, and he fits well in his brace. Plan: The plan at the present time is for him to continue his activities as he is doing. He is to use the brace when he is up and around, and I will see him back in 6 months for a clinical checkup at that time. Addendum: Mother was once again a little bit distant in the clinic visit, but Gabriel was quite appropriately interactive. Madhav Cobb M.D. LUZ / [place]OR [id number] / [id number] / [id number] / [id number] documented i n this encounter Plan of Treatment Not on filedocumented as of this encounter Visit Diagnoses Not on filedocumented in this encounter"
--- OUTSIDE RECORDS SUMMARY | ~2019-10-26 | XMS | Encounter Summary ---
Demographics + + + | Address | [address] | | | [place] [address] | + + + | Home Phone [...] [place] | | | | | [address] | | + + + + + Care Team Providers + +------+ + | Care Software Sales Consultant Name | Role | Phone | + +------+ + PCP | Unavailable | + +------+ + Encounter Details +--------+ + + + + | Date | Type | Department | Care Team | Description | +--------+ + + + + | 06/26/ | Results | [facility] at [facility] 7th | Marcio, | | | 2004 | Only | Floor [address] | MD Reyna [address] | | | | | St Mailcode: [facility] | [facility] | | | | | [facility] [place], [place] | [place], [place] | | | | | [address] | [address] | | | | | [phone] | | | +--------+ + + + [...]
--- OUTSIDE RECORDS SUMMARY | ~2019-10-26 | XMS | Encounter Summary ---
Demographics + + + | Address | [address] | | | [place] [address] | + + + | Home Phone | | + + + | Preferred Language | Unknown | + + + | Marital Status | Unknown | + + + | Gnosticism Affiliation | Unknown | + + + | Race | Unknown | + + + | Ethnic Group | Unknown | + + + Author + + + | Author | [facility] | | | and [place] | + + + | Organization | [facility] | | | and [place] | + + + | Address | Unknown | + + + | Phone | Unavailable | + + + Support + + +---------+ + | Name | Relationship | Address | Phone | + + +---------+ + | Andressa Cosme | ECON | Unknown | | + + +---------+ + | Yamil KEENAN | Unknown | | + + +---------+ + Care Team Providers + +------+ + | Care Cloth Stock Sorter Name | Role | Phone | + +------+ + | Brooke Dickson | PCP | | + +------+ + Encounter Details +--------+ + + + + | Date | Type | Department | Care Team | Description | +--------+ + + + + | 12/20/ | Orders Only | [facility] | Freddy Gallardo MD | | | 2019 | | CONVERSION DEP [address] | [address] | | | | [address] | [place] [address] | | | | | [place], [place] | [phone] | | | | | [address] | | | | | | [phone] | | | +--------+ + + + [...]
--- OUTSIDE RECORDS SUMMARY | ~2019-10-26 | XMS | Encounter Summary ---
Demographics + + + | Address | [address] | | | [place] [address] | + + + | Home Phone [...] [place] | | | | | [address] | | + + + + + Care Team Providers + +------+ + | Care Recoil Spring Winder Name | Role | Phone | + [...] | | | bifida | [place] | [facility] | | | | | without | COUNTY | Mailcode: | | | | | mention of | HEALTH DEPT | [facility] | | | | | hydrocephalu | [address] [place] [address] | [place], [place] | | | | | s, lumbar | [place], | [address] | | | | | region | [place] [address] | Phone: | | | | | Neurogenic | Phone: | [phone] | | | | | bladder, NOS | [phone] | Fax: | | | | | Procedures | Fax: | [phone] | | | | | [place] | [phone] | | | | | | US,RETROPERI | | | | | | | T, | | | | | | | B-SCAN/REAL | | | | | | | TIME,COMPLET | | | | | | | E TX | | | | | | [...] | Office | [facility] at [facility] 7th | Anita Lopez, | Spina Bifida without | | 2008 | Visit | Floor [address] | PNP [address] [facility] | Mention of | | | | St Mailcode: [facility] | [address] | Hydrocephalus, | | | | [facility] [place], [place] | [place], [place] | Lumbar Region; | | | | [address] | [address] | Neurogenic Bladder, | | | | [phone] | [phone] | NOS | | | | | [...] consider for cecostomy tube Hospitalizations: none Surgeries: INDEPENDENT DRIVER Shunt: no History of 2 spinal cord [...] day. 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 He [...]
--- OUTSIDE RECORDS SUMMARY | ~2019-10-26 | XMS | Encounter Summary ---
Demographics + + + | Address | [address] | | | [place] [address] | + + + | Home Phone [...] [place] | | | | | [address] | | + + + + + Care Team Providers + +------+ + | Care Audiology Doctor Name | Role | Phone | + [...] | hydrocephalu | [address] | [place], [place] | | | | | s, lumbar | [address] | [address] | | | | | region | L01 | Phone: | | | | | Procedures | [place], | [phone] | | | | | ID EST | [place] [address] | Fax: | | | | | PATIENT | Phone: | [phone] | | | | | LEVEL V ID | [phone] | | | | | | PHYS THERAPY | Fax: | | | | | | EVALUATION | [phone] | | | | | | ID | | | | | | | OCCUPATIONAL | | | | | | | THERAPY | | | | | | | EVALUATION | | | | | | | ID | | | | | | | [...] | 2011 | Visit | [address] | [address] [facility] | NOS; | | | | Mailcode: CDW6 | [address] | Lipomyelomeningocele | | | | Anna | [place], [place] | ; Neurogenic bowel | | | | [place], [place] | [address] | | | | | [address] | [phone] | | | | | [phone] | | | +--------+---------+ + + + [...] surgery to have the tube removed call [phone] and ask to speak with one of the pediatric surgery nurses about this. documented in this encounter Progress Notes Justice Douglas MD - 04/14/2012 3:08 PM PDTFormatting of this note might be different fro m the original. Pediatric Urology Clinic Note Patient: Pete Orozco [id number] Date of Visit: 04/14/2012 Attending Provider: Naty [...] complex orthopedic surgery 10/26/07 DR. MERARY AYALA ([facility]) Right ankle/foot orthopedic surgery 06/2009 DR. MERARY AYALA ([facility]) Cystoscopy and bladder augmentation (ileocystoplasty with 30 [...] Hx: Here with his Aunt. Living in [facility] with mother. Review of Systems: General: negative. [...] PM Urine showed Nitr and LE Impression: [facility] S/p Bladder augmentation using ileum 1. Neurogenic [...] removed. Naty Douglas MD, FAAP, FACS manager ent Pediatric Urology documented in this e ncounter [...] DRAPER | 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
--- OUTSIDE RECORDS SUMMARY | ~2019-10-26 | XMS | Encounter Summary ---
Demographics + + + | Address | [address] | | | [place] [address] | + + + | Home Phone [...] [place] | | | | | [address] | | + + + + + Care Team Providers + +------+ + | Care Junior High School Teacher Name | Role | Phone | + +------+ + | Umm Kaufman MD | PCP | | + +------+ + Encounter Details +--------+ + + + + | Date | Type | Department | Care Team | Description | +--------+ + + + + | 12/18/ | Orders Only | [facility] 7th | Lj Burgos, | Lipomyelomeningocele | | 2010 | | Floor [address] | ; Neurogenic | | | | St Mailcode: [facility] | | bladder, NOS | | | | [facility] [place], [place] | | | | | | [address] | | | | | | [phone] | | | +--------+ + + + [...]
--- OUTSIDE RECORDS SUMMARY | ~2019-10-26 | XMS | Encounter Summary ---
Demographics + + + | Address | [address] | | | [place] [address] | + + + | Home Phone [...] + + | Author | [facility] | + + + | Organization | [facility] | + + + | Address | Unknown | + + + | Phone | Unavailable | + + + Support + + + + + | Name | Relationship | Address | Phone | + + + + + | Sarahi Orozco | ECON | [address] | | | | | [place] | | | | | [address] | | + + + + + Care Team Providers + +------+ + | Care Account Support Rep Name | Role | Phone | + +------+ + | Umm Kaufman MD | PCP | | + +------+ + Encounter Details +--------+ + + + + | Date | Type | Department | Care Team | Description | +--------+ + + + + | 12/18/ | Orders Only | [facility] 7th | Lj Burgos, | | | 2010 | | Floor [address] | | | | | St Mailcode: [facility] | | | | | | [facility] [place] | | | | | | [address] | | | | | | [phone] | | | +--------+ + + + [...]
--- OUTSIDE RECORDS SUMMARY | ~2019-10-26 | XMS | Encounter Summary ---
Demographics + + + | Address | [address] | | | [place] [address] | + + + | Home Phone | | + + + | Preferred Language | Unknown | + + + | Marital Status | Single | + + + | Islam Affiliation | CHR | + + + [...] [place] | | | | | [address] | | + + + + + Care Team Providers + +------+ + | Care Associate Professor Of Literacy Name | Role | Phone | + +------+ + | Dajuan Jerome MD | PCP | | + +------+ + Encounter Details +--------+ + + + + | Date | Type | Department | Care Team | Description | +--------+ + + + + | 05/01/ | Pipe Changer | [facility] 7th | Robert Johnson MD | Spina Bifida without | | 2008 | | Floor [address] | [address] | Mention of | | | | St Mailcode: [facility] | [place], [place] | Hydrocephalus, | | | | [facility] [place] | [address] | Lumbar Region; | | | | [address] | [phone] | Neurogenic Bladder, | | | | [phone] | | NOS | +--------+ + + [...] | | + +---------+ + + | [facility] DEPARTMENT OF | | | | | RADIOLOGY | | | | + +---------+ + + documented in this encounter Visit Diagnoses + + | Diagnosis | + + | Spina bifida without mention of hydrocephalus, lumbar region | + + | Neurogenic bladder, NOS | + + documented in this encounter"
--- OUTSIDE RECORDS SUMMARY | ~2019-10-26 | XMS | Clinical Summary ---
Demographics + + + | Address | [address] | | | [place] [address] | + + + | Home Phone | | + + + | Preferred Language | Unknown | + + + | Marital Status | Unknown | + + + | Moravian Affiliation | Unknown | + + + | Race | Unknown | + + + | Ethnic Group | Unknown | + + + Author + + + | Author | [facility] (Historical as of | | | 07-02-19) | + + + | Organization | [facility] (Historical as of | | | 07-02-19) [...] Team Providers + +------+ + | Care Cotton Picker Name | Role | Phone | + [...] +------+-------+ + | MEDICAID | [place] | [id number] | | | [address] | | | N | | | | [place] | | | [place] | | | | [address] | | | MAIL PROCESSING ASSOCIATE | | | | | + +--------+ [...] | 1995 | [phone] | [place] [address] | | | karolyn | | | [phone] | | + +--------+ +--------+ + +
--- OUTSIDE RECORDS SUMMARY | ~2019-10-26 | XMS | Encounter Summary ---
Demographics + + + | Address | [address] | | | [place] [address] | + + + | Home Phone [...] [place] | | | | | [address] | | + + + + + Care Team Providers + +------+ + | Care Electrical And Instrumentation Manager Name | Role | Phone | + +------+ + | Umm Kaufman MD | PCP | | + +------+ + Encounter Details +--------+ + + + + | Date | Type | Department | Care Team | Description | +--------+ + + + + | 06/24/ | Documentati | [facility] 7th | Ngoc Fish PNP | | | 2011 | on | Floor [address] | [address] | | | | | St Mailcode: [facility] | [place], [place] | | | | | [facility] [place], [place] | [address] | | | | | [address] | [phone] | | | | | [phone] | | | +--------+ + + + [...]
--- OUTSIDE RECORDS SUMMARY | ~2019-10-26 | XMS | Encounter Summary ---
Demographics + + + | Address | [address] | | | [place] [address] | + + + | Home Phone [...] [place] | | | | | [address] | | + + + + + Care Team Providers + +------+ + | Care Director Of Medical Review Name | Role | Phone | + [...] [place] | | | | | | [address] | | | +--------+ + + + [...]
--- OUTSIDE RECORDS SUMMARY | ~2019-10-26 | XMS | Encounter Summary ---
Demographics + + + | Address | [address] | | | [place] [address] | + + + | Home Phone [...] [place] | | | | | [address] | | + + + + + Care Team Providers + +------+ + | Care Phlebotomy Director Name | Role | Phone | + +------+ + | Dajuan Jerome MD | PCP | | + +------+ + Encounter Details +--------+ + + + + | Date | Type | Department | Care Team | Description | +--------+ + + + + | 03/21/ | Transcribed | Allergy Clinic at | Dictation, Other | Transcribed | | 1997 | | [facility] [address] | | | | | | [address] [place] | | | | | | Mailcode: OP34 [facility] | | | | | | [address] | | | | | | [facility] | | | | | | [place] [address] | | | | | | [phone] | | | +--------+ + + + [...] as of this encounter Progress Notes Interface, Junior Mechanical Engineer In - 12/08/2006 3:03 AM PST [facility] [address], [place], [place] [address] January 1998 UMM NG MD [address] [place] [address] [place] [address] RE:Pete Orozco MR#:[id number] Dear Umm: We saw 2-year 3-month-old Pete back in [facility] in [place] today. Our last full evaluation was in [...] be evaluated for language delay at the [facility] (original plans after the last evaluation [...] family is currently together and living in [place]. PHYSICAL EXAMINATION: Weight 12.8 kg, height 88.5 [...] in 9-12 months. Sincerely, Robert Johnson M.D. Stamping Machine Operator, Pediatrics RASHARD :vitaliy documented in this encounter Plan of Treatment Not on filedocumented as of this encounter Visit Diagnoses Not on filedocumented in this encounter"
--- OUTSIDE RECORDS SUMMARY | ~2019-10-26 | XMS | Encounter Summary ---
Demographics + + + | Address | [address] | | | [place] [address] | + + + | Home Phone [...] [place] | | | | | [address] | | + + + + + Care Team Providers + +------+ + | Care Petroleum Inspector Name | Role | Phone | + +------+ + | Dajuan Jerome MD | PCP | | + +------+ + Encounter Details +--------+ + + + + | Date | Type | Department | Care Team | Description | +--------+ + + + + | 01/09/ | Office | General Internal | Note, Outpatient | Progress Note | | 1996 | Visit-Trans | Medicine 5 | Clinic | | | | victor hugo | [address] [place] | | | | | | Mailcode: L475 | | | | | | Outpatient Clinic | | | | | | [facility], [address] | | | | | | [place], [place] | | | | | | [address] | | | | | | [phone] | | | +--------+ + + + [...] as of this encounter Progress Notes Interface, Cook Candy In - 01/22/2007 1:04 AM PST CLINIC DATE: 01/09/97 PEDIATRIC UROLOGY CLINIC SUBJECTIVE: The patient is a twelve month old with a history of a lipomeningocele status post previous repair. He was noted recently to have a lower urinary tract infection. He underwent a previous voiding cystourethrogram which demonstrated complete emptying of his bladder with no evidence of reflux. His upper urinary tracts have remained normal. A recent bladder ultrasound was performed which demonstrated complete emptying of the bladder. In addition, he has been catheterized on numerous occasions which showed complete bladder emptying. Because of this presence of his urinary tract infection, he was felt to have indications for performance of a circumcision which predisposed him to urinary tract infections. Therefore, we have discussed this with the family in regards to the need for circumcision. OBJECTIVE: Physical examination today reflects no evidence of palpable abdominal masses. Examination of his genitalia demonstrates the testes to be descended and the phallus to be normal and uncircumcised. Urine was obtained today and was normal microscopically and biochemically. ASSESSMENT/PLAN: We discussed with the family the indications for circumcision and its performance which will be done in the near future because of urinary tract infection. Dave Malik M.D. Finance Mgr, Urology MICHAEL/yonathan documented in this encounter Plan of Treatment Not on filedocumented as of this encounter Visit Diagnoses Not on filedocumented in this encounter"
--- OUTSIDE RECORDS SUMMARY | ~2019-10-26 | XMS | Encounter Summary ---
Demographics + + + | Address | [address] | | | [place] [address] | + + + | Home Phone [...] [place] | | | | | [address] | | + + + + + Care Team Providers + +------+ + | Care Line Staker Name | Role | Phone | + [...] as of this encounter Progress Notes Interface, Emergency Doctor In - 07/16/2005 5:02 AM PDT [id number] [facility] Date: 07/02/2005 Clinic Name: [facility] Diagnosis: Lumbosacral lipomyelomeningocele. [...] solid ankle AFO which he wears virtually activity therapist. Father reports that Pete is very happy [...] clinic appointment. Reyna Buckley M.D. / SALVADOR [id number] / [id number] / [id number] / Electronically signed by Reyna Buckley 07-15-2005 11:48:42 AM documented i n this encounter Plan of Treatment Not on filedocumented as of this encounter Visit Diagnoses Not on filedocumented in this encounter"
--- OUTSIDE RECORDS SUMMARY | ~2019-10-26 | XMS | Encounter Summary ---
Demographics + + + | Address | [address] | | | [place] [address] | + + + | Home Phone | | + + + | Preferred Language | Unknown | + + + | Marital Status | Single | + + + | Yazidism Affiliation | CHR | + + + [...] [place] | | | | | [address] | | + + + + + Care Team Providers + +------+ + | Care Financial Institution Treasurer Name | Role | Phone | + +------+ + | Dajuan Jerome MD | PCP | | + +------+ + Encounter Details +--------+ + + + + | Date | Type | Department | Care Team | Description | +--------+ + + + + | 03/28/ | Transcribed | Allergy Clinic at | Dictation, Other | Transcribed | | 1997 | | [facility] [address] | | | | | | [address] | | | | | | Mailcode: OP34 [facility] | | | | | | [address] | | | | | | [facility] | | | | | | [place] [address] | | | | | | [phone] | | | +--------+ + + + [...] as of this encounter Progress Notes Interface, Stud Beef Cattle Farmer In - 12/08/2006 3:03 AM PST [facility] [address], [place], [place] [address] March 29, 1998 UMM NG MD [address] [place] [address] [place] [address] RE:Pete Orozco MR#:[id number] Dear Umm: This [...] if I can offer any clarification, at [phone]. Sincerely, Robert Johnson M.D. Carburizing Furnace Operator, Pediatrics RASHARD:vitaliy documented in this encounter Plan of Treatment Not on filedocumented as of this encounter Visit Diagnoses Not on filedocumented in this encounter"
--- OUTSIDE RECORDS SUMMARY | ~2019-10-26 | XMS | Encounter Summary ---
Demographics + + + | Address | [address] | | | [place] [address] | + + + | Home Phone [...] [place] | | | | | [address] | | + + + + + Care Team Providers + +------+ + | Care Ceramic Tiler Name | Role | Phone | + +------+ + | No Pcp Per Patient | PCP | Unavailable | + +------+ + Encounter Details +--------+ + + + + | Date | Type | Department | Care Team | Description | +--------+ + + + + | 10/25/ | Ancillary | Registration [address] | | | | 2006 | Registratio | [facility] | | | | | [address] | [address] Mailcode: [id number] | | | | | | [place], [place] | | | | | | [address] | | | | | | [phone] | | | +--------+ + + + [...]
--- OUTSIDE RECORDS SUMMARY | ~2019-10-26 | XMS | Encounter Summary ---
Demographics + + + | Address | [address] | | | [place] [address] | + + + | Home Phone [...] [place] | | | | | [address] | | + + + + + Care Team Providers + +------+ + | Care Secretary Administrative Assistant Name | Role | Phone | [...] | | bifida | [place] | [address] [facility] | | | | | without | COUNTY | Mailcode: | | | | | mention of | HEALTH DEPT | [facility] | | | | | hydrocephalu | [address] | [place], [place] | | | | | s, lumbar | [place], | [address] | | | | | region | [place] [address] | Phone: | | | | | Neurogenic | Phone: | [phone] | | | | | bladder, NOS | [phone] | Fax: | | | | | Procedures | Fax: | [phone] | | | | | [place] | [phone] | | | | | | US,RETROPERI | | | | | | | T, | | | | | | | B-SCAN/REAL | | | | | | | TIME,COMPLET | | | | | | | [place] | | | | | | | [...] + + | 09/12/ | Office | [facility] at [facility] | Robert Johnson MD | Lipomyelomeningocele | | 2008 | Visit | [address] | [address] | ; Neurogenic | | | | St Mailcode: [facility] | [place], [place] | Bladder, NOS; | | | | [place], [place] | [address] | Neurogenic Bowel; | | | | [address] | [phone] | Pes Cavus, right; | | | | [phone] | | Decubitus Ulcer of | | [...] - 09/12/2009 12:43 PM [facility] Client Experience Specialist Chief Complaint: A 13-year-old returns to [facility] for followup on complex prob lems. Primary Provider: Dajuan Jerome MD, [facility] [address], [place] [address]. HPI: We last saw Pete for a [...] and hopefully, these can be covered by [facility] er his current insurance through mother's work or his application to [facility], which mother fee ls he would be eligible for. Braggs/Education: At the last visit, he had additional testing, which revealed visua l motor integration standard score at 7 years 6 months levels; visual perceptual skills at 1 1-1/2 years skills, and motor coordination at 12 years 2 months skills (average for age) in the then 13-year-old boy. Physical Exam: Wt=48.2 ikg (45%), L=164.7 cm, 65%; BMI=25%, Head circ=56.0 cm (75%). IX=024/69, P=54. G eneral appearance: alert, oriented, cooperative, [...] I will raise his case at the [facility] clinic 09/21/09. Hopefully there is a therapist counselor [facility] who can help him with cognitive [...] - [place] | [address] | [place], [place] | | | [place] [facility] | [address] | [address] | | | TESTS | | | | + + + + + | [facility] | [address] | [place], [place] | | | TESTS | [facility] | [address] | | + + + + + [...]
--- OUTSIDE RECORDS SUMMARY | ~2019-10-26 | XMS | Encounter Summary ---
Demographics + + + | Address | [address] | | | [place] [address] | + + + | Home Phone [...] [place] | | | | | [address] | | + + + + + Care Team Providers + +------+ + | Care Ingredient Scaler Helper Name | Role | Phone | [...] as of this encounter Progress Notes Interface, Velocity Shooter In - 06/15/2005 11:13 AM PDT [id number] [facility] Date: 03/11/2005 Clinic: Pediatric [...] was quite appropriately interactive. Madhav Cobb M.D. LZU / [place] [id number] / [id number] / [id number] / [id number] documented i n this encounter Plan of Treatment Not on filedocumented as of this encounter Visit Diagnoses Not on filedocumented in this encounter"
--- OUTSIDE RECORDS SUMMARY | ~2019-10-26 | XMS | Encounter Summary ---
Demographics + + + | Address | [address] | | | [place] [address] | + + + | Home Phone [...] [place] | | | | | [address] | | + + + + + Care Team Providers + +------+ + | Care Scrape Gatherer Name | Role | Phone | + [...] | | | bifida | [place] | [facility] | | | | | without | COUNTY | Mailcode: | | | | | mention of | HEALTH DEPT | [facility] | | | | | hydrocephalu | [address] | [place], [place] | | | | | s, lumbar | [place], | [address] | | | | | region | [place] [address] | Phone: | | | | | Neurogenic | Phone: | [phone] | | | | | bladder, NOS | [phone] | Fax: | | | | | Procedures | Fax: | [phone] | | | | | [place] | [phone] | | | | | | US,RETROPERI [...] | 04/21/ | Office | [facility] | Liliane Aldana, | Spina Bifida without | | 2006 | Visit | [address] | PNP [address] | Mention of | | | | St Mailcode: [facility] | [address] | Hydrocephalus, | | | | [place] | [place], [place] | Lumbar Region | | | | [address] | [address] | (Primary Dx) | | | | [phone] | [phone] | | | | | | | [...] cord retethering. He is being referred to [facility] for follow up.I reviewed the signs and [...]
--- OUTSIDE RECORDS SUMMARY | ~2019-10-26 | XMS | Encounter Summary ---
Demographics + + + | Address | [address] | | | [place] [address] | + + + | Home Phone | | + + + | Preferred Language | Unknown | + + + | Marital Status | Single | + + + | Buddhist Affiliation | CHR | + + + [...] [place] | | | | | [address] | | + + + + + Care Team Providers + +------+ + | Care Tree Faller Name | Role | Phone | + +------+ + | Dajuan Jerome MD | PCP | | + +------+ + Encounter Details +--------+ + + + + | Date | Type | Department | Care Team | Description | +--------+ + + + + | 02/08/ | Procedure - | Digestive Health | Record, Operation | Operative Report | | 1995 | | [place] at [facility] [address] | | | | | Transcribed | Nasir Tineo | | | | | | Mailcode: Center | | | | | | for [facility] and | | | | | | Healing, Building [address] | | | | | | [place], [place] | | | | | | [address] | | | | | | [phone] | | | +--------+ + + + [...] + + | OPERATION RECORD | | 02/09/1996 | | Results for this | | | | 12:00 AM | | procedure are in the | | | | [facility] | | results section. | + +--------+ + + + documented in this encounter Results OPERATION RECORD (02/09/1996 12:00 AM PST) + + | Procedure Note | + + | 02/09/1996 12:00 AM [facility] | | [facility] | | [facility] [place], [place] [address] | | [facility] | | | | OPERATION RECORD | | | | Med Rec No.: [id number] Date: 02/09/96 | | | | Name: Pete Orozco Luz | | | | | | ATTENDING SURGEON: Shiraz Vance Jr., MShelley., F.A.A.P. | | Media Analytics Manager, Neurosurgery | | and Pediatrics | | | | | | SUPERVISOR MOLD CONSTRUCTION(S): Radhames Booker M.D. | | Resident, Neurosurgery | | | | | | PREOPERATIVE DIAGNOSIS(ES): Lipomyelomeningocele. | | | | POSTOPERATIVE DIAGNOSIS(ES): Same. | | | | OPERATION(S) PERFORMED: Repair of lipomyelomeningocele; intraspinal | | microdissection. | | | | ANESTHESIA: General. | | | | SPECIMEN(S) REMOVED: Filum terminale. | | | | FINDINGS: The lipoma involved, predominantly, the | | right side of the spinal cord. The dural | | defect involved the right side of the | | spinal cord as well, and several important nerve roots in the lumbosacral | | region exited the spinal canal through lipomatous tissue rather than through | | dural sleeves. The spinal cord ended in a filum terminale that was | | infiltrated with fatty tissue. After stimulation of this structure, it was | | divided. | | | | INDICATIONS: Pete Orozco is a fed-aomp-pto infant with | | a lipomyelomeningocele. His neurologic | | examination was | | notable for diminished toe flexion on the right side and a diminished ankle | | reflex on the right side. | | | | PROCEDURE: When general oral endotracheal anesthesia | | had been induced, the patient was positioned | | prone on a foam | | doughnut. Surface electromyographic electrodes were applied over the | | gastroc soleus muscles on both sides. Needle electrodes were placed in the | | glutei on both side and in the external anal sphincter. The vesical | | pressure was transduced through the Lockett catheter. The skin of the back | | was scrubbed with Betadine, painted with Betadine, and draped in a sterile | | fashion. After infiltration of the skin with 0.5% Xylocaine with | | epinephrine, a linear incision was made from the upper lumbar region, where | | normal spinous processes could be palpated, across the dome of the | | subcutaneous lipoma. The incision was deepened with the #15 blade and with | | a needle tip Bovie, the lumbodorsal fascia was exposed. This fascia was | | incised in the midline over the lowest spinous process, and the muscular and | | ligamentous attachments of the posterior elements of the spine at this level | | were taken down with jokers. The fascial incision was extended inferiorly | | with the #15 blade until the fascial defect through which the lipoma exited | | the spinal canal, was encountered. A laminectomy was performed at the | | lowest exposed level with a [place] rongeur. | | | | Using the Cavitron, the subcutaneous lipoma was debulked and from | | the lipomatous tissue within the spinal canal. With the Cavitron, the plane | | around the lipoma at the level of the fascia was developed. Hemostasis was | | obtained with monopolar and bipolar cautery. Eventually the entire fascial | | defect was defined completely, and the lipoma exiting this defect was | | reduced in bulk considerably. | | | | With a #15 blade the dura was opened at the level of the laminectomy, and | | the dural opening was extended inferiorly with a dental instrument and with | | the #15 blade. The leaves of the dura were retracted with four #5-0 PDS | | sutures. Under the magnification and illumination of the operating | | microscope, the dural opening was extended inferiorly on the left side. | | There was a substantial meningocele on the left side, so separation of the | | dura from the spinal cord and the lipoma dorsal to the level of the dorsal | | nerve rootlets was straightforward. 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 On | | the right side, however, the spinal cord lipoma fused with the dura at a | | high level, and this line of fusion extended ventrally. Lipomatous tissue | | enveloped the lower lumbar and upper sacral nerve roots. The exact identify | | of these roots was not determined, but with the Cavitron, several rootlets | | at two levels had been exposed. Without transecting these spinal nerves, | | complete untethering of the spinal cord could not be accomplished. The | | surgeon elected to preserve these nerves. | | Attention was directed to the fibrolipoma in the filum. Under high | | magnification, the adjacent lower sacral nerve rootlets were from | | the filum. A bundle of these nerve rootlets was stimulated with bipolar | | electrodes, and bladder contraction was recorded along with the | | electromyographic activity in the external anal sphincter. Stimulation of | | the filum itself evoked no contraction of the bladder or muscle contraction. | | The filum was divided with bipolar forceps and micro scissors, and a short | | segment of the filum was sent as a specimen. The nerve rootlets that were | | passing through the lipoma on the right side were stimulated with bipolar | | electrodes as well, but no activity could be recorded at these levels. | | | | After generous irrigation of the wound with antibiotic solution, the dura | | was closed with #6-0 PDS. The gluteal myofascial flaps were developed | | bilaterally with the bipolar forceps and Metzenbaum scissors. The fascia | | was closed primarily, repairing the fascial defect, using interrupted #3-0 | | Vicryl stitches. After further irrigation of the wound the subcutaneous | | tissues were closed in several layers with interrupted #3-0 and #4-0 Vicryl | | sutures, and fast-absorbing #5-0 Vicryl was used to complete the skin | | closure. Antibiotic ointment was applied. | | | | | | | | | | | | | | Shiraz Vance Jr., M.D., F.A.A.P. | | Media Analytics Manager, Neurosurgery | | and Pediatrics | | | | Linda/luis angel | | | | P | | | | cc: | | | | | | GEOFF MOHAN MD | | [address] | | [place] [address] | | | + + documented in this encounter Visit Diagnoses Not on filedocumented in this encounter"
--- OUTSIDE RECORDS SUMMARY | ~2019-10-26 | XMS | Encounter Summary ---
Demographics + + + | Address | [address] | | | [place] [address] | + + + | Home Phone [...] [place] | | | | | [address] | | + + + + + Care Team Providers + +------+ + | Care Cleaning Machine Operator Name | Role | Phone | + +------+ + | Dajuan Jerome MD | PCP | | + +------+ + Encounter Details +--------+ + + + + | Date | Type | Department | Care Team | Description | +--------+ + + + + | 07/24/ | Results | [facility] 7th | Robert Johnson MD | | | 2005 | Only | Floor [address] | [address] | | | | | St Mailcode: [facility] | [place], [place] | | | | | [facility] [place], [place] | [address] | | | | | [address] | [phone] | | | | | [phone] | | | +--------+ + + + [...]
--- OUTSIDE RECORDS SUMMARY | ~2019-10-26 | XMS | Encounter Summary ---
Demographics + + + | Address | [address] | | | [place] [address] | + + + | Home Phone [...] [place] | | | | | [address] | | + + + + + Care Team Providers + +------+ + | Care Bulk Tank Car Unloader Name | Role | Phone | + +------+ + | Dajuan Jerome MD | PCP | | + +------+ + Encounter Details +--------+ + + + + | Date | Type | Department | Care Team | Description | +--------+ + + + + | 01/16/ | Office | [facility] | Report, Outpatient | Progress Note | | 1998 | Visit-Trans | | Consultation | | [...] as of this encounter Progress Notes Interface, Subsurface Augmentee Operator In - 11/10/2006 5:08 AM PSTCLINIC DATE: 01/16/1999 CLINIC NAME: [facility] DISCIPLINE: SOCIAL WORK Pete, 3 years and 1 month of age, comes to clinic today with his parents, Yamil and Nicky (Yamil's last name is Jt and Nicky's last name is Oliverio). 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 It is unclear to this social media project manager whether he is going to need to be monitored for issues regarding neurogenic bowel or bladder at this time. Pete and his parents and two siblings (larissa Coleman is a full sibling to Pete and his older brother, Dave, is a half-sibling) moved to [place] due to an employment opportunity for Yamil. Pete has medical coverage through the [place] [employer] and [facility] [place] is the managed care program. Dr. Rusty Montero is the new primary care physician. Pete's family is in the process of applying for SSI on Pete's behalf; this social media project manager assisted with completion of paperwork a few weeks ago. The family is interested in enrolling Pete in [employer] but is unsure where to pursue this, and this social media project manager will identify where [employer] applications for [place] residents can be found and will be in contact with the family. There are no other Social Work activities planned at this time although Social Work remains available if needed. Neli Robison L.C.S.W. Soft Top Installer BD:julius Jaswinder, Subsurface Augmentee Operator In - 11/10/2006 5:08 AM PSTCLINIC DATE: 01/16/1999 CLINIC NAME:[facility] DISCIPLINE: ORTHOPEDICS HISTORY: Pete is now 3. He is followed for his lipomeningocele. He has been ambulating without any difficulties lately. Their only is of occasional nighttime back pain. PHYSICAL EXAMINATION: Examination shows that Pete is fully active for a vcxld-oswb-sir. He is able to toe walk without difficulty. He can also heel walk as necessary. Spine is straight. His posterior closure has healed quite well. There are no specific abnormalities that would point to a mechanical low back problem. PLAN: For the present, I am inclined not to pursue a deep workup regarding this pain. We plan on no intervention otherwise. Follow-up at his next full appointment. Gilbert Romero M.D. Kaleigh sandee, Subsurface Augmentee Operator In - 11/10/2006 5:08 AM PSTCLINIC DATE: 01/16/1999 CLINIC NAME: [facility] DISCIPLINE: OCCUPATIONAL THERAPY Pete, accompanied by his family, was seen for an occupational therapy evaluation in the [facility] to monitor his development. He has been seen once previously by Occupational Therapy and was found to be performing well when he was at approximately [age] year of age. He has received Early Intervention services in the past while living in [facility] but no longer receives services. Father indicates that he would like him to begin in a [employer] program in the future. Today Father expresses no specific concerns about Pete's fine motor skills or development. Today Pete is very friendly and alert, enjoying the activities presented. The Diana Fine Motor Scales of Development were administered and performance is found at the 33-month level of skills in comparison to his chronological age of 37 months. This performance results in a percentile rank of 13, a Z score of -1.44, and a developmental motor quotient of 83, showing a mild delay at this time. Today he is seen to stack blocks, copy simple block designs and simple formations with pencil and paper. He also attempted to button and unbutton, string beads and tried to snip with scissors. No abnormality of movement, strength or coordination was noted and slight lowering of scores appears due to immaturity of function and possible lack of experience, especially with cutting items. It is felt that he would benefit greatly from a [employer] program as he shows nice beginning readiness skills for school. He should be reevaluated before he enters first grade to ensure appropriate school services. Kathy Simms M.S., 0.T.R./L. Occupational Therapist CHRISTINA/minnie Interface, Subsurface Augmentee Operator In - 11/10/2006 5:08 AM PSTCLINIC DATE: 01/16/1999 CLINIC NAME: [facility] DISCIPLINE: NEUROSURGERY I saw Pete a little more than one month ago because of back pain. There were no other symptoms or signs suggestive of spinal cord tethering. Pete continues to have back pain. It awakens him from sleep at night at times, and at times it bothers him during the day. Pete is not yet toilet trained, but he is only 33 months old. EXAMINATION: Pete looks comfortable today, but today he wants to tell me about a pain in his right forearm. There is no deformity of the feet or legs. The legs have the same circumference. The patellar reflexes are brisk. The Achilles reflexes are quite difficult to elicit, perhaps worse on the right than the left. Fine toe movements are perfectly normal. IMPRESSION: Lipomyelomeningocele. I do not attach much significance to Pete's back pain. Certainly it is not an indication for spinal cord tethering surgery at this time. PLAN: We asked Pete to return again in three months. If his symptoms are not improved, we shall arrange a urological investigation, perhaps including urodynamics. If his symptoms are not improved, he should have magnetic resonance imaging as well. Shiraz Vance M.D., Kian. Senior Consulting Manager, Department of Neurological Surgery and Pediatrics Anne Interface, Subsurface Augmentee Operator In - 11/10/2006 5:08 AM PSTCLINIC DATE: 01/16/1999 CLINIC NAME: [facility] DISCIPLINE: PHYSICAL THERAPY Pete attended clinic today accompanied by his parents and his siblings. 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 He has not had specific discernible neuromotor deficit but does consistently display more intact function and strength in the left lower extremity than in the right lower extremity. Today his parents report that he occasionally complains of back pain in the region of his lipomatous mass and continues to complain of sensory affects in his right lower extremity. They report that the frequency of his complaints has increased but they are ready to attribute this to him having greater clark of expressive language rather than necessarily to real increase in frequency of the sensory changes. Pete was awake, alert and spontaneous active. In the course of spontaneous movement around the exam room, which included climbing onto and off several objects, rising up to his toes to reach for things and jumping and standing on each leg independently, he displayed essentially functionally intact strength. However, he does display slight residual metatarsus adduction and a mild functional instability at the right ankle, especially during dynamic weight-bearing plantar flexion as in rising up onto his toes to reach for objects. Physical examination reveals symmetric low normal muscle tone with spontaneous as well as directed activation of all of his lower extremity musculature bilaterally. It is impossible by manual muscle testing to define a strength difference in his lower extremities, even distally where it is most evidence functionally. He does display downgoing toes on the left and equivocally upgoing toes on the right but otherwise his neuromotor testing was unremarkable. Pete appears to be doing functionally well, and his parents report that he appears to be able to keep up with age peers in developmental gross motor activities. I did not specifically assess his developmental gross motor level. I encouraged the parents to continue to monitor for changes in his status related to the possibility of symptomatic spinal cord tethering and commiserated with them about the difficulty of attaining certainty of neurologic changes when the only reports are of a sensory nature and when the slight motor asymmetry appears to be stable over this long period of time. I will plan to reevaluate Pete at his next scheduled full team clinic appointment with the [facility] and at that time will reassess his musculature and functional neuromotor status. Raul Zamora Physical Therapist LUC/minnie Interface, Subsurface Augmentee Operator In - 11/10/2006 5:08 AM PSTCLINIC DATE: 01/16/1999 CLINIC NAME: [facility] DISCIPLINE: UROLOGY SUBJECTIVE: Pete is now 3 years, 1 month old. 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 He is not on catheterization, he is not on antibiotics, nor is he on Ditropan. He has not had a urinary tract infection since circumcision two years ago. He has had no urinary tract infections or unexplained fevers or illnesses. He is currently learning how to potty train. He is in pull-up pants and he does demonstrate both volitional voiding and volitional bowel movements although his control is not perfect as of yet. OBJECTIVE: He is an ambulatory male in no distress. The penis is circumcised and normal without any lesions. Testes are descended bilaterally. He has no abdominal scars. On his back there is a scar consistent with his prior repair. His anus is not patulous. URINALYSIS: He volitionally voided 20 cc of clear urine. Urinalysis was negative for urinary tract infection. There was trace non-hemolyzed blood. ULTRASOUND: Performed today, left kidney 6.8 cm in length, minimal grade I hydronephrosis, AP diameter of the pelvis 0.3 cm. Right kidney 6.3 cm in length, no hydronephrosis. Bladder contained 30 cc and he was unable to void on ultrasound. There is some growth of the left kidney and no growth of the right kidney compared to his previous ultrasound one year ago. IMPRESSION: 1. Stable upper urinary tracts, no infections. He is currently not on any urinary tract intervention. 2. He seems to be making progress as far as toilet training is going and I do not feel the need to intervene or investigate further at this time. We should give him another six months or so to see what kind of control he gains during that time. PLAN: 1. Return to clinic in one year with ultrasound at that time. 2. If there are concerns over failure of progression of his toilet training, the parents should call in approximately six months for up to arrange follow-up sooner. Humberto Carrillo M.D. Resident, Urology Dave Malik M.D., F.A.A.P. Professor, Surgery and Pediatrics MG:julius Tdocumented in this encounter Plan of Treatment Not on filedocumented as of this encounter Visit Diagnoses Not on filedocumented in this encounter"
--- OUTSIDE RECORDS SUMMARY | ~2019-10-26 | XMS | Encounter Summary ---
Demographics + + + | Address | [address] | | | [place] [address] | + + + | Home Phone [...] [place] | | | | | [address] | | + + + + + Care Team Providers + +------+ + | Care Oncologist Name | Role | Phone | + [...] | | 2005 | Registratio | [facility] | [address] | | | | [address] | [address] Mailcode: [id number] | [place], [place] | | | | | [place], [place] | [address] | | | | | [address] | [phone] | | | | | [phone] | | | +--------+ + + + [...]
--- OUTSIDE RECORDS SUMMARY | ~2019-10-26 | XMS | Encounter Summary ---
Demographics + + + | Address | [address] | | | [place] [address] | + + + | Home Phone [...] [place] | | | | | [address] | | + + + + + Care Team Providers + +------+ + | Care Prep Manager Name | Role | Phone | [...] of this encounter Progress Notes Interface, Distribution Collection Operator In - 01/01/2007 6:29 AM [facility] [address], [place], [place] [address] January 16, 1999 SARAH SOLARES MD [address] [place] [address] RE: ADAMA OROZCO MR#: [id number] [...] liaison, or coordination. Sincerely, Robert Johnson M.D. Telephone Order Supervisor, Pediatrics Developmental Peditrician RASHARD/anna documented in this encounter Plan of Treatment Not on filedocumented as of this encounter Visit Diagnoses Not on filedocumented in this encounter
--- OUTSIDE RECORDS SUMMARY | ~2019-10-26 | XMS | Encounter Summary ---
Demographics + + + | Address | [address] | | | [place] [address] | + + + | Home Phone [...] [place] | | | | | [address] | | + + + + + Care Team Providers + +------+ + | Care Consulting Practice Director Name | Role | Phone | + +------+ + | Umm Kaufman MD | PCP | | + +------+ + Reason for Visit + + + | Reason | Comments | + + + | Difficulty carrying | | | out educational | | | activities | | + + + Encounter Details +--------+ + + + + | Date | Type | Department | Care Team | Description | +--------+ + + + + | 04/21/ | Telephone | [facility] 7th | [place], | Difficulty carrying | | 2011 | | Floor [address] | OT | out educational | | | | St Mailcode: [facility] | | activities | | | | [facility] [place], [place] | | | | | | [address] | | | | | | [phone] | | | +--------+ + + + [...]
--- OUTSIDE RECORDS SUMMARY | ~2019-10-26 | XMS | Encounter Summary ---
Demographics + + + | Address | [address] | | | [place] [address] | + + + | Home Phone [...] [place] | | | | | [address] | | + + + + + Care Team Providers + +------+ + | Care Sand Operator Name | Role | Phone | + +------+ + | Dajuan Jerome MD | PCP | | + +------+ + Encounter Details +--------+ + + + + | Date | Type | Department | Care Team | Description | +--------+ + + + + | 10/19/ | Results | Registration [id number] | | | | 1996 | Only | [address] | | | | | | Jhon Mailcode: [id number] | | | | | | [place], [place] | | | | | | [address] | | | | | | [phone] | | | +--------+ + + + [...] | + +--------+ + + + | MICROBIOLOGY TESTS 1 | Routin | 10/19/1996 | | Results for this | | | e | 3:45 PM | | procedure are in the | | | | PST | | results section. | + +--------+ + + + | URINALYSIS TESTS | Routin | 10/19/1996 | | Results for this | | | e | 3:45 PM | | procedure are in the | | | | PST | | results section. | + +--------+ + + + documented in this encounter Results MICROBIOLOGY TESTS 1 (10/19/1996 3:45 PM PST) + + + + + + | Component | Value | Ref Range | Performed | Pathologist | | | | | At | Signature | + + + + + + | CULTURE | Diagnosis | | | | | RESULT | NOT INDICATEDTest | | | | | | Ordered URINE | | | | | | CULTURE, ROUTINEOrdering | | | | | | Loc LABSpec | | | | | | Set Up Date 10/19Spec | | | | | | Set Up Time | | | | | | 15:45Source Body Site | | | | | | CATHETERColony Count | | | | | | >100,000 | | | | | | CFU/MLReport Status | | | | | | FINALCulture Result | | | | | | GROWTH, SEE | | | | | | ISOLATE(S)Date Of Final | | | | | | Re [id number] | | | | | | 01ISOLATE 01Final | | | | | | Isolate PROBABLE | | | | | | ESCHERICHIA | | | | | | COLIESCHERICHIA | | | | | | COLIISOLATE # | | | | | | 01Amikacin | | | | | | SAmp/Sulbact | | | | | | SAmpicillin | | | | | | SCefazolin | | | | | | SCeftazidime | | | | | | SCefuroxime | | | | | | Na SCephalothin | | | | | | | | | | | | SCiprofloxacin | | | | | | SGentamicin | | | | | | SImipenem | | | | | | SNitrofurantoin | | | | | | SNorfloxacin | | | | | | SPiperacillin | | | | | | STicarc/Clav Acid | | | | | | STobramycin | | | | | | STrimethoprimSulf S | | | | + + + + + + + + | Specimen | + + | | + + + + + + + | Performing | Address | City/State/Zipcode | Phone Number | | Organization | | | | + + + + + | [facility] | [address] | [place] [address] | | | PATHOLOGY | [address] | | | + + + + + URINALYSIS TESTS (10/19/1996 3:45 PM PST) + + + + + + | Component | Value | Ref Range | Performed | Pathologist | | | | | At | Signature | + + + + + + | UA, DIPSTK | MICROSCOPIC NOT | | | | | ONLY - | STANDARDIZED | | | | | HEADER | | | | | + + + + + + | COLOR(UR) | STRAW | | | | + + + + + + | APPEARANCE | SLIGHTLY CLOUDY | | | | + + + + + + | GLUCOSE(UR) | NEG | mg/dL | | | + + + + + + | BILIRUBIN | NEG | mg/dL | | | + + + + + + | KETONES | NEG | mg/dL | | | + + + + + + | SPECIFIC | 1.015 | mg/dL | | | | GRAVITY | | | | | + + + + + + | BLOOD | SMALL | mg/dL | | | + + + + + + | PH(UR) | 7. | mg/dL | | | + + + + + + | PROTEIN(LAB | NEG | mg/dL | | | | ) | | | | | + + + + + + | UROBILINOGE | 0.2 | HEATHER UNITS | | | | N | | | | | + + + + + + | NITRITES | POS | HEATHER UNITS | | | + + + + + + | LEUKOCYTE | SMALL | HEATHER UNITS | | | | ESTERASE | | | | | + + + + + + | WHITE CELLS | 35-45 | /HPF | | | + + + + + + | RED CELLS | 2-3 | /HPF | | | + + + + + + | NON-SQUAMOU | OCC | /HPF | | | | S EPITH | | | | | + + + + + + | SQUAMOUS | OCC | /HPF | | | | EPITHELIAL | | | | | + + + + + + | BACTERIA | MANY | /HPF | | | + + [...] + + + + + + | URINE | MANY WBC CLUMPS PRESENT | /LPF | | | | COMMENT1 | | | | | + + + + + + | URINE | ONLY 6 CC URINE SENT | /LPF | | | | COMMENT2 | | | | | + + [...] | + + + + + | [facility] | [address] | [place] [address] | | | PATHOLOGY | [address] | | | + + + + + documented in this encounter Visit Diagnoses Not on filedocumented in this encounter"
--- OUTSIDE RECORDS SUMMARY | ~2019-10-26 | XMS | Encounter Summary ---
Demographics + + + | Address | [address] | | | [place] [address] | + + + | Home Phone [...] [place] | | | | | [address] | | + + + + + Care Team Providers + +------+ + | Care Mold Breaker Name | Role | Phone | + [...] as of this encounter Progress Notes Interface, Ceramic Maker Demonstrator In - 09/19/2006 1:07 AM PSTCLINIC DATE: [...] has brought to the attention of his press operator helper. Gabriel complained of some itching in relation to this. Gabriel appears to be doing quite well and I will plan to reevaluate him at his next scheduled full team appointment with the [facility]. Raul Zmaora Physical Therapist WF:[phone] signed by Interface, Ceramic Maker Demonstrator In at 09/19/2006 1:07 AM PSTInterf latoya, Ceramic Maker Demonstrator In - 09/19/2006 1:07 AM PSTCLINIC DATE: [...] fluid. The order will be faxed to [facility]. We also discussed dietary measures of increasing [...] the [facility]. Mother should call our office, [phone], if she has any questions or concerns. 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 He is ambulatory. He recently started intermittent catheterization. His mother catheterizes him with an 8 Estonian catheter. They have had no difficulties in [...] routine basis. Dave Malik M.D., F.A.A.P. ROSITAS:[phone] signed by Interface, Ceramic Maker Demonstrator In at 09/19/2006 1:07 AM PSTInterf latoya, Ceramic Maker Demonstrator In - 09/19/2006 1:07 AM PSTCLINIC DATE: 11/18/2000 CLINIC NAME: [facility] DISCIPLINE: PEDIATRIC UROLOGY SUBJECTIVE: Pete is nearly [age] years old. 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 Currently, he is being catheterized every four hours by his mother with an 8 Estonian catheter. This was initiated in May 2000. [...] void. He is catheterized with an 8 Estonian catheter for a total of 15 cc. [...] Follow-up with Urology at the next scheduled [facility] Clinic appointment. Dr. Malik was present and participated in the history, physical examination and assessment. Curtis Pham M.D. Dave Malik M.D., F.A.A.P. CFK:[phone] signed by Interface, Ceramic Maker Demonstrator In at 09/19/2006 1:07 AM PSTInterf latoya, Ceramic Maker Demonstrator In - 09/19/2006 1:07 AM PSTCLINIC DATE: [...] in muscle strength. Js Deng M.D., Ph.D. Wax Specialist, Head, Division of Pediatric Neurosurgery NRS:[phone] signed by Interface, Ceramic Maker Demonstrator In at 09/19/2006 1:07 AM PSTdocume nted in this encounter Plan of Treatment Not on filedocumented as of this encounter Visit Diagnoses Not on filedocumented in this encounter"
--- OUTSIDE RECORDS SUMMARY | ~2019-10-26 | XMS | Encounter Summary ---
Demographics + + + | Address | [address] | | | [place] [address] | + + + | Home Phone [...] [place] | | | | | [address] | | + + + + + Care Team Providers + +------+ + | Care Biological Engineer Name | Role | Phone | + +------+ + PCP | Unavailable | + +------+ + Encounter Details +--------+ + + + + | Date | Type | Department | Care Team | Description | +--------+ + + + + | 01/31/ | Office | [facility] | Note, [...] as of this encounter Progress Notes Interface, Night Monitor In - 06/15/2005 12:07 AM PDT [id number] PAM Escobar CLINIC DATE: 01/31/2005 ORTHOPEDIC ADAMA IS A YOUNG MAN WHO HAS A HISTORY OF A LIPOMENINGOCELE. I PERFORMED SOME SOFT TISSUE SURGERY ON HIS RIGHT FOOT ABOUT 2 MONTHS AGO. UNFORTUNATELY, HE CAME BACK TO CLINIC WITH HIS CAST IN VERY POOR CONDITION, FULLY WET. HIS SKIN WAS ALL MACERATED, AND I TOOK HIM OUT OF THE CAST AND HAD HIM MEASURED FOR AN AFO. WE ARE NOW ABOUT 2 WEEKS AFTER THAT, AND HIS SKIN LOOKS MUCH BETTER, BUT UNFORTUNATELY, WE HAVE LOST A LOT OF THE CORRECTION. HE LOOKS LIKE HE LACKS A GOOD 10 OR 15 DEGREES FROM NEUTRAL IN REGARD TO EQUINUS. I SHOWED HIM SOME STRETCHING EXERCISES. WE PLACED HIM INTO HIS AFO, WHICH HE DOES FIT INTO, AND HOPEFULLY, THIS IS GOING TO GET BETTER HE PUTS WEIGHT ON IT AND WALKS. I WANT TO CHECK ON HIM IN ABOUT 6 WEEKS AND REASSESS HIM CLINICALLY AT THAT TIME TO SEE HOW HE IS DOING. I MIGHT TRY TO SEND HIM TO PHYSICAL THERAPY WELL. IT IS UNFORTUNATE THAT WE HAVE LOST SOME OF OUR CORRECTION, HOWEVER, DUE TO THE SKIN MACERATION NEEDING TO LEAVE HIM OUT. LUNA COTTRELL M.D. LUZ / SALVADOR [id number] / [id number] / [id number] / [id number] ELECTRONICALLY SIGNED BY LUNA COTTRELL 02-21-2005 10:32:57 AM documented i n this encounter Plan of Treatment Not on filedocumented as of this encounter Visit Diagnoses Not on filedocumented in this encounter"
--- OUTSIDE RECORDS SUMMARY | ~2019-10-26 | XMS | Encounter Summary ---
Demographics + + + | Address | [address] | | | [place] [address] | + + + | Home Phone [...] [place] | | | | | [address] | | + + + + + Care Team Providers + +------+ + | Care Drivers' Cash Clerk Name | Role | Phone | + +------+ + PCP | Unavailable | + +------+ + Encounter Details +--------+ + + + + | Date | Type | Department | Care Team | Description | +--------+ + + + + | 05/04/ | Results | [facility] | Dave Malik MD | | | 2001 | Only | Floor [address] | [address] | | | | | St Mailcode: [facility] | Maritza Ferreira [place], | | | | | [facility] [place], [place] | [place] [address] | | | | | [address] | [phone] | | | | | [phone] | | | +--------+ + + + [...] | US KIDNEY BILATERAL | Routin | 05/04/2002 | | Results for this | | LTD | e | 11:45 AM | | procedure are in the | | | | PDT | | results section. | + +--------+ + + + documented in this encounter Results US KIDNEY BILATERAL (05/04/2002 11:45 AM PDT) + + + + + + | Component | Value | Ref Range | Performed | Pathologist | | | | | At | Signature | + + + + + + | US KIDNEY | Radiologist 1: JAQUELINE, | | | | | COMPLETE | Naty REAGAN, | | | | | | MShelley.-Radiologist 2: | | | | | | Naty PARSONS, | | | | | | M.Florinda.RENAL ULTRASOUND: | | | | | | 05/04/2002 Dictated | | | | | | 05/04/2002 HISTORY: | | | | | | 6-year-old male with | | | | | | spina bifida. FINDINGS: | | | | | | The kidneys have | | | | | | normal contour and | | | | | | echogenicity. Theright | | | | | | kidney measures 6.9 x | | | | | | 4.1 x 4.1 cm for an | | | | | | overall renal volumeof | | | | | | 60.5 cc. The left | | | | | | kidney has normal | | | | | | contour and echogenicity | | | | | | andmeasures 7.1 x 3.7 x | | | | | | 3.1 cm for an overall | | | | | | volume of 43.4 cc. | | | | | | Thereis no | | | | | | hydronephrosis. The | | | | | | bladder was distended on | | | | | | evaluation with a | | | | | | volume of 97.5 | | | | | | cc.Catheterization was | | | | | | performed, and the post | | | | | | catheterization volume | | | | | | was1 cc. There is | | | | | | bladder wall thickening | | | | | | and trabeculation. A | | | | | | smallamount of | | | | | | intraluminal debris is | | | | | | present. IMPRESSION: 1. | | | | | | No evidence for | | | | | | hydronephrosis. 2. | | | | | | Mild bladder | | | | | | trabeculation and | | | | | | bladder wall thickening. | | | | | | 3. The renal volume | | | | | | suggested for the | | | | | | patient's weight | | | | | | ofapproximately 20 kg is | | | | | | near the 50th | | | | | | percentile bilaterally. | | | | | | END OF IMPRESSION: | | | | + + + + + + + + | Specimen | + + | | + + + +---------+ + + | Performing | Address | City/State/Zipcode | Phone Number | | Organization | | | | + +---------+ + + | [facility] DEPARTMENT OF | | | | | RADIOLOGY | | | | + +---------+ + + documented in this encounter Visit Diagnoses Not on filedocumented in this encounter"
--- OUTSIDE RECORDS SUMMARY | ~2019-10-26 | XMS | Encounter Summary ---
Demographics + + + | Address | [address] | | | [place] [address] | + + + | Home Phone [...] [place] | | | | | [address] | | + + + + + Care Team Providers + +------+ + | Care District Supervisor Name | Role | Phone | [...] | 04/21/ | Telephone | [facility] at [facility] 7th | [place], | Difficulty carrying | | 2011 | | Floor [address] | OT | out educational | | | | St Mailcode: [facility] | | activities | | | | [facility] [place], [place] | | | | | | [address] | | | | | | [phone] | | | +--------+ + + + [...]
--- OUTSIDE RECORDS SUMMARY | ~2019-10-26 | XMS | Encounter Summary ---
Demographics + + + | Address | [address] | | | [place] [address] | + + + | Home Phone [...] + + + | Author | [facility] | + + + | Organization | [facility] | + + + | Address | Unknown | + + + | Phone | Unavailable | + + + Support + + + + + | Name | Relationship | Address | Phone | + + + + + | Sarahi Orozco | ECON | [address] | | | | | [place] | | | | | [address] | | + + + + + Care Team Providers + +------+ + | Care Stud Driver Name | Role | Phone | + +------+ + | Dajuan Jerome MD | PCP | | + +------+ + Encounter Details +--------+ + + + + | Date | Type | Department | Care Team | Description | +--------+ + + + + | 04/26/ | Stereotype Caster | [facility] at [facility] | Robert Johnson MD | Spina Bifida without | | 2007 | | Floor [address] | [address] | Mention of | | | | St Mailcode: [facility] | [place], [place] | Hydrocephalus, | | | | [facility] [place] | [address] | Lumbar Region; | | | | [address] | [phone] | Neurogenic Bladder, | | | | [phone] | | NOS | +--------+ + + [...] UA 10 DIP POC | Routin | 05/03/2008 | Spina Bifida | Results for this | | | e | 2:47 PM | without Mention of | procedure are in the | | | | PDT | Hydrocephalus, | results section. | | | | | Lumbar Region | | | | | | Neurogenic Bladder, | | | | | | NOS | | + +--------+ + + + | US KIDNEY & BLADDER | Routin | 05/03/2008 | Spina Bifida | Results for this | | | e | 8:11 AM | without Mention of | procedure are in the | | | | PDT | Hydrocephalus, | results section. | | | | | Lumbar Region | | | | | | Neurogenic Bladder, | | | | | | NOS | | + +--------+ + + + documented in this encounter Results UA DIPSTICK ONLY, POC (05/03/2008 2:47 PM PDT) + + + + + + | Component | Value | Ref Range | Performed | Pathologist | | | | | At | Signature | + + + + + + | COLOR (UA | Yellow | | | | | DIP), POC | | | | | + + + + + + | APPEARANCE | Sl. Cloudy | | | | | (UA DIP), | | | | | | POC | | | | | + + + + + + | LEUKOCYTES | Trace | Negative | | | | (UA DIP), | | | | | | POC | | | | | + + + + + + | NITRITES | Pos. | Negative | | | | (UA DIP), | | | | | | POC | | | | | + + + + + + | UROBILINOGE | 0.2 | 0.2 HEATHER | | | | N (UA DIP), | | UNITS | | | | POC | | | | | + + + + + + | PROTEIN (UA | Trace | Negative to | | | | DIP), POC | | Trace mg/dL | | | + + + + + + | PH (UA | 6.0 | 5 - 8 | | | | DIP), POC | | | | | + + + + + + | BLOOD (UA | Small | Negative | | | | DIP), POC | | | | | + + + + + + | SPECIFIC | 1.030 | 1.005 - 1.03 | | | | GRAVITY (UA | | | | | | DIP), POC | | | | | + + + + + + | KETONES (UA | 5 | Negative mg/dL | | | | DIP), POC | | | | | + + + + + + | BILIRUBIN | Small | Negative | | | | (UA DIP), | | | | | | POC | | | | | + + + + + + | GLUCOSE (UA | Neg. | Negative to | | | | DIP), POC | | Trace mg/dL | | | + + + + + + + + | Specimen | + + | Urine | + + US KIDNEY & BLADDER (05/03/2008 8:11 AM PDT) + + + + + + | Component | Value | Ref Range | Performed | Pathologist | | | | | At | Signature | + + + + + + | US KIDNEY & | Renal Ultrasound: | | | | | BLADDER | 05/03/08.Comparison: | | | | | | 04/21/07.Clinical | | | | | | History: Spina | | | | | | bifida.Findings: The | | | | | | kidneys are normal in | | | | | | location, morphology, | | | | | | andechogenicity. The | | | | | | right kidney measures | | | | | | 8.3 cm x 4.9 cm x 4.5 cm | | | | | | andhas a volume of 97 | | | | | | cc. The left kidney | | | | | | measures 8.7 cm x 4.7 cm | | | | | | x3.9 cm and has a | | | | | | volume of 83.1 cc. | | | | | | Renal volumes are | | | | | | normal for thepatient's | | | | | | weight of 40 kg. No | | | | | | stones, cysts, or masses | | | | | | are seen.There is no | | | | | | hydronephrosis or | | | | | | hydroureter.The bladder | | | | | | is trabeculated, as | | | | | | previously noted. | | | | | | There is noevidence of | | | | | | debris. | | | | | | Pre-catheterization | | | | | | bladder volume measures | | | | | | 288cc. There is no | | | | | | post catheterization | | | | | | residual.IMPRESSION:Norm | | | | | | al renal ultrasound.END | | | | | | IMPRESSIONI have | | | | | | personally viewed this | | | | | | procedure/exam and | | | | | | reviewed this | | | | | | report.STATUS FINAL / | | | | | | Dr. VALENTE MIMS | | | | + + + + + + + + | Specimen | + + | | + + + +---------+ + + | Performing | Address | City/State/Zipcode | Phone Number | | Organization | | | | + +---------+ + + | [facility] DEPARTMENT OF | | | | | RADIOLOGY | | | | + +---------+ + + documented in this encounter Visit Diagnoses + + | Diagnosis | + + | Spina bifida without mention of hydrocephalus, lumbar region | + + | Neurogenic bladder, NOS | + + documented in this encounter"
--- OUTSIDE RECORDS SUMMARY | ~2019-10-26 | XMS | Encounter Summary ---
Demographics + + + | Address | [address] | | | [place] [address] | + + + | Home Phone | | + + + | Preferred Language | Unknown | + + + | Marital Status | Single | + + + | Scientology Affiliation | CHR | + + + [...] [place] | | | | | [address] | | + + + + + Care Team Providers + +------+ + | Care Disk Recordist Name | Role | Phone | + +------+ + PCP | Unavailable | + +------+ + Encounter Details +--------+ + + + + | Date | Type | Department | Care Team | Description | +--------+ + + + + | 01/16/ | Results | [facility] at [facility] | Dave Malik MD | | | 1998 | Only | Floor [address] | [address] | | | | | St Mailcode: [facility] | Maritza Ferreira [place], | | | | | [facility] [place], [place] | [place] [address] | | | | | [address] | [phone] | | | | | [phone] | | | +--------+ + + + [...] | | + +---------+ + + | [facility] DEPARTMENT OF | | | | [...] ACC# | | | | | | [id number], DONE ON | | | | | | 16-JAN-99 AT 12:06HAVE | | | | | | BEEN REPORTED ON THE:US | | | | | | KIDNEYS, ACC# [id number], | | | | | | DONE ON 16-JAN-99 AT | | | | | | 12:06. | | | | + + + + + + + + | Specimen | + + | | + + + +---------+ + + | Performing | Address | City/State/Zipcode | Phone Number | | Organization | | | | + +---------+ + + | [facility] DEPARTMENT OF | | | | | RADIOLOGY | | | | + +---------+ + + documented in this encounter Visit Diagnoses Not on filedocumented in this encounter"
--- OUTSIDE RECORDS SUMMARY | ~2019-10-26 | XMS | Encounter Summary ---
Demographics + + + | Address | [address] | | | [place] [address] | + + + | Home Phone | | + + + | Preferred Language | Unknown | + + + | Marital Status | Single | + + + | Cheondoism Affiliation | CHR | + + + [...] [place] | | | | | [address] | | + + + + + Care Team Providers + +------+ + | Care Promotion Manager Name | Role | Phone | + +------+ + | Dajuan Jerome MD | PCP | | + +------+ + Encounter Details +--------+ + + + + | Date | Type | Department | Care Team | Description | +--------+ + + + + | 06/06/ | Hospital | Radiology at [facility] | | | | 2008 | Encounter | [address] [facility] | | | | | | Mailcode: [address] | | | | | | [place] | | | | | | [place], [place] | | | | | | [address] | | | | | | [phone] | | | +--------+ + + + [...] | | + +---------+ + + | [facility] DEPARTMENT OF | | | | | RADIOLOGY | | | | + +---------+ + + documented in this encounter Visit Diagnoses + + | Diagnosis | + + | Spina bifida without mention of hydrocephalus, lumbar region | + + | Neurogenic bladder, NOS | + + documented in this encounter"
--- OUTSIDE RECORDS SUMMARY | ~2019-10-26 | XMS | Encounter Summary ---
Demographics + + + | Address | [address] | | | [place] [address] | + + + | Home Phone [...] [place] | | | | | [address] | | + + + + + Care Team Providers + +------+ + | Care Director Stars Name | Role | Phone | + +------+ + | Dajuan Jerome MD | PCP | | + +------+ + Encounter Details +--------+ + + + + | Date | Type | Department | Care Team | Description | +--------+ + + + + | 04/19/ | Transcribed | Allergy Clinic at | Dictation, Other | Transcribed | | 1996 | | [facility] [address] | | | | | | [address] | | | | | | Mailcode: [address] [facility] | | | | | | [place] | | | | | | [facility] | | | | | | [place] [address] | | | | | | [phone] | | | +--------+ + + + [...] as of this encounter Progress Notes Interface, Textile Machinery Instructor In - 01/11/2007 2:25 AM PST [facility] [address], [place], [place] [address] April 19, 1997 [facility] [address] [facility] [place] [address] RE:Pete Orozco MR#:[id number] : 89 Dear Umm, Hadalst-qwqiu-pam Pete came back to [facility] today here in [place]. We last did a full evaluation in [...] the hand). I did parts of the [place] II, and the [place], and he is definitely functioning at age levels on the [place], and above 12 months on the Gardner. [...] the next few months. They are in [place], with interpretation and films forwarded to Dr. [...] any additional clarification, liaison, or coordination. Sincerely, oRbert Johnson M.D. Sliding Joint Maker, Pediatrics SHAYNE /josiane A cc: documented in this encounter Plan of Treatment Not on filedocumented as of this encounter Visit Diagnoses Not on filedocumented in this encounter
--- OUTSIDE RECORDS SUMMARY | ~2019-10-26 | XMS | Encounter Summary ---
Demographics + + + | Address | [address] | | | [place] [address] | + + + | Home Phone [...] [place] | | | | | [address] | | + + + + + Care Team Providers + +------+ + | Care Fiberglass Machine Operator Name | Role | Phone | + +------+ + | Dajuan Jerome MD | PCP | | + +------+ + Encounter Details +--------+ + + + + | Date | Type | Department | Care Team | Description | +--------+ + + + + | 04/20/ | Transcribed | Allergy Clinic at | Dictation, Other | Transcribed | | 1995 | | [facility] [address] | | | | | | Ashley Acevedo | | | | | | Mailcode: [id number] [facility] | | | | | | Cyril Moon | | | | | | [facility] | | | | | | [place] [address] | | | | | | [phone] | | | +--------+ + + + [...] as of this encounter Progress Notes Interface, Draw End Hand In - 02/10/2007 5:02 AM PDT [facility] [address], [place], [place] [address] April 20, 1996 UMM NG MD [address] [place] [id number] RE:Pete Orozco MR#:[id number] Dear Umm: Today we saw oveu-gvxrn-onf Pete for a full evaluation in Spina Bifida Program. Both parents accompany and medical records were available from the hospitalization for surgical repair. 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 The parents report that recent evaluation by therapists from [facility] revealed some left-sided preference, right-sided weakness. Past Medical History: The lipomeningocele was unexpected at . Ultrasound had been done at about six months' gestation for dating and all appeared normal. Delivery was apparently uneventful and a lipomeningocele was apparent. You referred him for evaluation to Dr. Shiraz Vance, Pediatric Neurosurgeon. Pete was hospitalized at seven weeks of age at [facility] from 02/08 through 02/14/96 for exploration and repair of a lipomeningocele. Lipomatous tissue was apparently closely involved around nerve roots and could not be totally debulked. The only difficulty was a need for fully catheter until three days postop. Because of low post void residuals (less than 20 cc's) he was able to be discharged without the need for antibiotics or cathing. , Labor, and Delivery: As described above. Mother had an apparently uneventful . it felt quite normal, even in comparison to the previous . Mother has hip arthritis and was on NSAID until she realized she was at three months age, and then discontinued, thereafter using PRN Tylenol. She had gestational diabetes and hypertension, but neither needed special treatment. Review of Systems: There is mild weakness across the right ankle, as noted on my previous exams also. That is, right ankle dorsi and plantar flexion is about III/V, even the Babinski's are down bilaterally. Today I note that his toe grasp is somewhat diminished on the right compared to the left. DTR's are 2/4 bilaterally at the knees, and diminished or absent at the right ankle compared to 1/4 on the left ankle. He does not have hydrocephalus. They are satisfied that he hears and sees well. Neurogenic Bladder: He apparently has a good urinary stream and has "initiated" mother at least once. After discharge from the hospital he was seen again by Dr. Dave Malik, Pediatric Urologist. Parents report that the renal ultrasound and VCUG were apparently normal appearing. He has not had UTI's. As mentioned above, post void residuals were less than 20 cc's on multiple occasions. He is scheduled to be seen again by Dr. Malik, 05/02/96. Rule-Out Neurogenic Bowel: Bowel movements are usually a couple per day, green, soft. Once in a while he has small, brown, hard balls. Parents are reminded that if that becomes regular, then they should contact you or us for a prescription for a mild laxative such as Senokot syrup. Family Situation: Intact family. Well artb-hohu-jra brother. Parents describe him as an easy and pleasant personality who smiles much of the time. Development: He coos interactively, and imitates facial expressions. He brings his hands to midline. he is starting to attempt to roll over. Diet: He is on Enfamil formula. Growth curve is very nice. He has had first tastes of cereal, well tolerated. He is served by [employer]. PHYSICAL EXAMINATION: Weight 5.72 kg (25th percentile), length 61.2 cm (10th percentile), head circumference 41.2 cm (25th percentile). Pulse 177, blood pressure 96/55. General appearance: Well male. No somatic abnormalities. HEENT: Normocephalic, anterior fontanel 2x2 cm and soft; sutures are normal; there is mild asymmetry of the head from positioning and easy turning primarily to the right; there is no torticollis. EOMs are full, PERRLA, red reflexes are symmetrical, and there is no nystagmus or strabismus. TM's have normal landmarks and mobility. There are no significant oral lesions, and the uvula is singular. The spine is straight, and there is a well-healed vertical 2 inch midline surgical scar over the lumbosacral region, with a small amount of lipomatous tissue surrounding; no hirsutism, drainage, discoloration, or paresthesia. Lungs are clear throughout. Heart: Regular rhythm and physiologic sounds. Abdomen: No organomegaly or masses. Genitalia: Normal male, not circumcised, testes descended bilaterally, no hernia nor hydrocele; foreskin is easily retracted and returns to normal position. Orthopedics: There are no deformities or contractures. No significant skin lesions. Lymphatics are normal. NEUROLOGIC EXAMINATION: Cranial nerves 3, 4, 6, 7, 9-12 are intact. Strength is symmetrical in the upper extremities and the lower extremities excluding the ankles; diminished strength across the right ankle as described above (3/5). DTR's and Babinski's are also described above. With his hands he brings items to midline. He props his bottle using two hands. In prone, he does push up, up to about 60 degrees and follows well. Turning to the left is slower and less frequent. ASYMMETRICAL MOTOR FUNCTION: Physical exam by others endorses weakness and slightly decreased spontaneous activity on the right upper extremity. The right ankle is previously reported as somewhat diminished strength, both in dorsiflexion and plantar flexion. The patient is faced to the right most of the time with great difficulty moving beyond midline actively toward the left. This is reviewed with Dr. Shiraz Vance, Pediatric Neurosurgeon. Syrinx or other cord anomalies are rarely associated with lipomeningocele, which is this child's underlying lesion. Perhaps the best approach is to reevaluate the child again as scheduled in early (August [facility]). If asymmetrical tone and function is still present, then we will refer the patient for further evaluation. This would most appropriately be MRI of the brain. DISCUSSION: Things are medically stable. Neurologic and motor examination is exactly as I had seen it in the hospital in January. The parents are informed about the possible complications of spinal cord tethering which might occur at any age. These would present as loss of previous function, or deterioration of bowel or bladder pattern, or scoliosis. He should be evaluated annually throughout his life. Lipomyelomeningocele has a very positive prognosis. The risk of spinal cord tethering is in the range of about 30 percent. Hydrocephalus is not associated and he, therefore, is likely to have normal cognitive development. The weakness across the right ankle, if real, is easily controlled by bracing at the time that he starts walking. [employer] [facility] ([facility]) is already involved and will be providing services starting in July. Today, he will be seen in a comprehensive fashion by all of the affiliated services. He will have urinalysis today, and is scheduled to be seen by Dave Malik later this month. I think we can see him in [place] at the [facility] in August, and have a full evaluation here in [place] again in six months. Please feel free to call at any time if you have any questions, Umm. Thanks for the opportunity to see Pete again. Please feel free if we can offer any additional information, liaison, or coordination. Sincerely, Robert Johnson M.D. Chief Airport Guide, Pediatrics SHAYNE /shantel P C: 05/02/96 suzanna cc: [facility] documented in this encounter Plan of Treatment Not on filedocumented as of this encounter Visit Diagnoses Not on filedocumented in this encounter
--- OUTSIDE RECORDS SUMMARY | ~2019-10-26 | XMS | Encounter Summary ---
Demographics + + + | Address | [address] | | | [place] [address] | + + + | Home Phone [...] [place] | | | | | [address] | | + + + + + Care Team Providers + +------+ + | Care Inside Sales Associate Name | Role | Phone | [...] | +--------+ + + + + | 09/12/ | Documentati | [facility] at [facility] 7th | Norrissavi, | Spina bifida | | 2008 | on | Floor [address] | Neli, OPERATIONAL RISK ANALYST [address] | | | | | St Mailcode: [facility] | [address] | | | | | [facility], [place] | Rd [place], [place] | | | | | [address] | [address] | | | | | [phone] | | | +--------+ + + + [...]
--- OUTSIDE RECORDS SUMMARY | ~2019-10-26 | XMS | Encounter Summary ---
Demographics + + + | Address | [address] | | | [place] [address] | + + + | Home Phone [...] [place] | | | | | [address] | | + + + + + Care Team Providers + +------+ + | Care Manager Etl Name | Role | Phone | + [...] as of this encounter Progress Notes Interface, Softball Coach In - 06/15/2005 12:07 AM PDT [id number] 12/03/2004 12/03/2004 [id number] PAM LUNANathan Escobar CLINIC DATE: 12/03/2004 PEDIATRICS ORTHOPEDIC CLINIC NOTE CHIEF COMPLAINT: THE CHIEF COMPLAINT IS RIGHT FOOT DEFORMITY. HISTORY OF PRESENT ILLNESS: THIS IS A 8-YEAR-OLD YOUNG MALE WITH A HISTORY OF A LIPOMYELOMENIGOCELE . HE COMES TO VISIT US TODAY FROM [place]. DR. KNUTSON SAW HIM BACK IN FEBRUARY [...] COTTRELL M.D. LUZ/MIGUEL ANGEL P C: 12/10/2004 [id number] CC: DR. EVE KNUTSON [facility] ELECTRONICALLY SIGNED BY LUNA COTTRELL 02-21-2005 10:32:42 AM documented i n this encounter Plan of Treatment Not on filedocumented as of this encounter Visit Diagnoses Not on filedocumented in this encounter"
--- OUTSIDE RECORDS SUMMARY | ~2019-10-26 | XMS | Clinical Summary ---
Demographics + + + | Address | [address] | | | [place] [address] | + + + | Home Phone [...] | Sarahi Orozco | ECON | [address] [facility] | | | | | [place] | | | | | [address] | | + + + + + Care Team Providers + +------+ + | Care Overlock Hemmer Name | Role | Phone | + +------+ + | No Pcp Per Patient | PCP | Unavailable | + +------+ + Source Comments KELSEY is fully live on both [facility] Amb[facility] and [facility] InPatient.[facility] Allergies + + + + + + [...] Tab by mouth | | 0 | 05/3 | | Activ | | Oral Tablet | every six hours as | | | 0/20 | | e | | | needed. [...] + + | Tethering of spinal cord | 10/02/2010 | + + + | [...] 05/05/2008 | + + + | Monoparesis | 05/05/2008 | + + + | Scoliosis | 05/03/2008 | + + + + + | Overview: dextrosc | + + + + + | Visual impairment | 05/03/2008 | + + + + + | Overview: Difficulty tracking upward and to the right noted | | on exam-07-20 | + + + + + | Spina bifida of lumbar region | 1995 | + + + + + | Overview: Lipomyelomeningocele- repaired , second | | untethering [id number] | + + + + + | [...] | + + + + | Paraparesis | 05/05/20 | | | | 08 [...] | + + + + + | Influenza (Flu) | | | | | vaccination (#1) | 9 | | | + + + + + | Pneumococcal | Aged Out | | No longer eligible | | vaccination | | | based on patient's | | | | | age to complete this | | | | | topic | + + + + + Results Not on filefrom Last 3 Months Insurance + +--------+ +--------+-------+---------+--------+ | Payer | Benefi | Subscriber | Effect | Phone | Address | Type | | | t Plan | ID | aneta | | | | | | / | | Dates | | | | | | Group | | | | | | + +--------+ +--------+-------+---------+--------+ | DEPENDENCY COUNSELOR MEDICAID | DEPENDENCY COUNSELOR | xxxxxxxx | | | | Medica | | | [place] | | 012-Pr | | | id | | | [place] | | esent | | | | + +--------+ +--------+-------+---------+--------+ + +--------+ +--------+ + + | Guarantor Name | Accoun | Relation to | Date | Phone | Billing Address | | | t Type | Patient | of | | | | | | | | | | + +--------+ +--------+ + + | NICOLE OROZCO | Person | Father | [birth year] | | [address] | | | al/Fam | | 1970 | [phone] | [place] [address] | | | karolyn | | | 8 (Home) | | + +--------+ +--------+ + + | NICOLE OROZCO | Shrine | Parent | [birth year] | [address] | | | rs | | 1970 | [phone] | [place] [address] | | | | | | 8 (Home) | | + +--------+ +--------+ + + Advance Directives + + + + + | Type | Date Recorded | Patient | Explanation | | | | Core Dropper | | + + + + + | Advance | | | | | Directives and | | | | | Living Will | | | | + + + + + | Power of | | | | | Link Machine Operator | | | | + + + + + + + + + + | Code Status | Date | Date | Comments | | | Activated | Inactivated | | + + + + + | Full Code | 06/27/2011 | 07/03/2011 | | | | 2:10 PM | 4:15 PM | | + + + + + + + + +---+ | | | | | + + + +---+ | Full Code | 06/26/2011 | 06/27/2011 | | | | 8:57 AM | 2:10 PM | | + + + +---+
--- OUTSIDE RECORDS SUMMARY | ~2019-10-26 | XMS | Encounter Summary ---
Demographics + + + | Address | [address] | | | [place] [address] | + + + | Home Phone | | + + + | Preferred Language | Unknown | + + + | Marital Status | Single | + + + | Advent Affiliation | CHR | + + + [...] [place] | | | | | [address] | | + + + + + Care Team Providers + +------+ + | Care Portrait Studio Photographer Name | Role | Phone | + [...] | hydrocephalu | [address] | [place], [place] | | | | | s, lumbar | [address] | [address] | | | | | region | [address] | Phone: | | | | | Procedures | [place], | [phone] | | | | | [place] EST | [place] [address] | Fax: | | | | | PATIENT | Phone: | [phone] | | | | | LEVEL V [place] | [phone] | | | | | | PHYS THERAPY | Fax: | | | | | | EVALUATION | [phone] | | | | | | [place] | | | | | | | OCCUPATIONAL | | | | | | | THERAPY | | | | | | | EVALUATION | | | | | | | [place] | | | | | | | US,RETROPERI | | | | | | | T, | | | | | | | B-SCAN/REAL | | | | | | | TIME,COMPLET | | | | | | | E CB, WF, | | | | | | | JACELESTINA | | | +--------+--------+ + + + + Encounter Details +--------+---------+ + + + | Date | Type | Department | Care Team | Description | +--------+---------+ + + + | 04/14/ | Office | [facility] at [facility] | Cy Hutson | Lipomyelomeningocele | | 2011 | Visit | Floor [address] | , PT [address] [facility] | ; Monoparesis (HCC); | | | | St Mailcode: [facility] | [address] | Scoliosis; | | | | [facility], [place] | [place] [address] | Contracture of ankle | | | | [address] | | and foot joint; | | | | [phone] | | Abnormal gait; Pain | | | | | | in joint of right | | | | | | foot | +--------+---------+ + + + Social History [...] + documented in this encounter Progress Notes Cy Hutson Jr., PT - 04/14/2012 9:52 AM PDTFormatting of this note might be differen t from the original. PHYSICAL THERAPY EVALUATION [facility] SPINA BIFIDA PROGRAM DATE OF SERVICE: 04/14/2012 DATE: 1995 AGE: 16 year 3 month PRIMARY CARE PHYSICIAN: Umm Kaufman MD REASON FOR VISIT: Return evaluation. His last clinic visit (LCV) was 04/07/2011 . BACKGROUND AND DIAGNOSES: Pete attended clinic today for evaluation. His aunt accompani ed him. 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 He has had corrective surgery on the right foot, at [facility]. PREVIOUSLY: At his right foot Pete had developed [...] another surgical procedure correcting the right foot. The procedu re consisted of lengthening the tendoachilles, reduction of the high arch, and release of th e fifth toe's tendons. He derived good results from the procedure. At his 10/02/10 visit what was apparently new was poor proprioception and kinesthetic awar eness of his right foot and ankle. These sensory functions were intact previously as they ar e elsewhere. He has always had diminished but present tactile sensation in his right foot. T he effect on his gait was dramatic: " (his gait is) remarkably slow and deliberate. The plac ement of the right foot is inconsistent and he appears to have to make adjustments to its pl acement after foot strike. He declined to run." He had reported much tripping, stumbling and falling. Pete's full medical and surgical history is as follows: Patient Active Problem List Diagnoses Lipomyelomeningocele Neurogenic [...] right noted on exam-9 Lipomyelomeningocele Past Surgical History Procedure Date Pr release tethered spinal cord,lumbr 02/20/2003 First repair, release of lipomyelomeningocele 01/1996 Right ankle/foot orthopedic surgery 12/2004 DR. LUNA COTTRELL Right ankle/foot complex orthopedic surgery 10/26/07 DR. MERARY AYALA ([facility]) Right ankle/foot orthopedic surgery 06/2009 DR. MERARY AYALA ([facility]) Cystoscopy and bladder augmentation (ileocystoplasty with 30 cm of small bowel) 011 Laparoscopic chait cecostomy tube placement 06/26/2011 PATIENT CONCERNS: Pete reported two concerns, one related to Urology and the other relat ed to the red, swollen and painful right foot that He was eager to show me. REPORT OF PAIN: Pete has pain that is quit e exquisite in the area of the swelling. He s aid it was at least 7/10, a little better when elevated and worse when he bears weight or ot herwise presses upon it. SERVICES: Pete is not currently involved in any Physical Therapy (PT) services. He remai ns enrolled at [facility] in [place] for orthopedic care and orthotic management. GENERAL OBSERVATIONS AND BEHAVIOR: Pete was awake alert and pleasantly responsive. His r ight foot is in a position of nice neutral correction but the area around the right Great To e is indeed swollen, red, a little warm and quite tender to pressure. This is the foot with the chronic small but open wound beneath the first metatarsal head. I asked Ngoc Fish, PNP, Pediatric Nurse Practitioner in the Spina Bifida Program, to look a t this with me and she directed Pete to the [facility] Emergency Department., calling ahead to apprise them of our concerns. I reviewed his status otherwise. He denies any change and a brief review confirmed this. H is spine looks the same as does his leg length discrepancy (LLD). His gait today is antalgic but otherwise unchanged. I will copy here my most recent full description of his status. From my report of 01/16/2010: MUSCULOSKELETAL EXAMINATION: Pete has a 2.5 cm leg length discrepancy, with the right le g being shorter. The discrepancy appeared to be exclusively in the tibial component. Pete's right foot and ankle are in good alignment with excellent neutral plantigrade po sition amenable to orthotic wear. Most remarkable today is the visibility of his pelvic obliquity and the scoliosis. Both chi ve been previously described but the scoliosis was not visibly apparent to me. The left side of the pelvis is elevated, the right side dropping to meet the shorted leg. There is a visi ble rightward shift os his trunk in standing and walking. There is a visible left upper thor acic and right thoracolumbar curve that does not reverse with forward flexion of his trunk. The midline scar on his back has migrated rightward, visibly off midline now. I cannot appre ciate a rotational component. Elsewhere his musculoskeletal examination is entirely benign and normal for age. His range of motion, alignment and joint integrity in his other limbs, and proximally in the right lo wer limb, are intact and normal for age. Aside from his midline surgical repair scar there a re no anomalous structures. NEUROMOTOR EXAMINATION: Pete has [...] metatarsal pads of his right foot . This remains as a darkened callus and os suspect sturdiness. By his own report his sensation is impaired in his right foot but is intact elsewhere. He reports that the lanioo-ur-r-shoe sensation is much worse (and typically so) with the left f oot, verifying the sensory impairment in the right foot and the consequent ongoing skin inte grity threat. FUNCTIONAL LEVEL: FUNCTIONAL LEVEL LEFT RIGHT Thoracic [...] the GMFCS Pete functions at Level I RECOMMENDATIONS: I did not make specific recommendations for specific PT or related referra l. I did recommend subsequent return PT Evaluation in the context of a full-team visit. In th at light Pete's status and the risk for adverse change related to the underlying diagnose s warrant the return evaluation. It was a pleasure seeing Pete again today. I welcome questions related to this report. IDALMIS HUTSON PT, PCS Physical Therapist Pediatric Clinical Specialist [facility] [phone] [email or web address] documented in this encounter Plan of Treatment Not on filedocumented as of this encounter Procedures + +--------+ + + + | Procedure Name | Priori | Date/Time | Associated Diagnosis | Comments | | | ty | | | | + +--------+ + + + | [place] PHYS THERAPY | Routin | 04/14/2012 | | | | EVALUATION | e | 5:50 PM | Lipomyelomeningocele | | | | | PDT | Monoparesis (HCC) | | | | | | Scoliosis | | | | | | Contracture of ankle | | | | | | and foot joint | | | | | | Abnormal gait Pain | | | | | | in joint of right | | | | | | foot | | + +--------+ + + + documented in this encounter Visit Diagnoses + + | Diagnosis | + + | Lipomyelomeningocele Spina bifida without mention of hydrocephalus, lumbar region | + + | Monoparesis (HCC) Unspecified monoplegia | + + | Scoliosis Scoliosis (and kyphoscoliosis), idiopathic | + + | Contracture of ankle and foot joint | + + | Abnormal gait Abnormality of gait | + + | Pain in joint of right foot Pain in joint, ankle and foot | + + documented in this encounter
--- OUTSIDE RECORDS SUMMARY | ~2019-10-26 | XMS | Encounter Summary ---
Demographics + + + | Address | [address] | | | [place] [address] | + + + | Home Phone [...] [place] | | | | | [address] | | + + + + + Care Team Providers + +------+ + | Care Whipper Beater Name | Role | Phone | + [...] as of this encounter Progress Notes Interface, Archery Equipment Hay Sorter In - 05/09/2006 1:03 AM PDTCLINIC DATE: 06/21/2003 CLINIC NAME: SP[facility] BIFIDA CLINIC DISCIPLINE: PEDIATRIC NURSE PRACTITIONER BACKGROUND: Pete is a 7-hls[age]wf[age]sw[age] male with 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 He attends [facility] in the company his mother, Nicky [place]. Chief concern: Pete is scheduled today for urology and orthotics follow-up. It became evident that review of his current bowel program was indicated. Nicky and ePte were both present for review and bowel [...] juice. It is suggested that he take qxf-iwm-d-half teaspoons in the morning and again in [...] CPNP. Pediatric Nurse Practitioner CA:[id number] C: 07/04/2003 [facility] [phone] cc: PRIMARY CARE PHYSICIAN PARENTS Linda Zamora, Archery Equipment Hay Sorter In - 05/09/2006 1:03 AM PDTCLINIC DATE: 06/21/2003 CLINIC NAME: SP[facility] BIFIDA CLINIC DISCIPLINE: UROLOGY Pete is a very nice llbua-snal-lks with a history of neurogenic bladder secondary [...] their prescriptions. Dave Malik M.D., F.A.A.P. [id number] signed by Interface, Archery Equipment Hay Sorter In at 05/09/2006 1:03 AM [facility] umented in this encounter Plan of Treatment Not on filedocumented as of this encounter Visit Diagnoses Not on filedocumented in this encounter"
--- OUTSIDE RECORDS SUMMARY | ~2019-10-26 | XMS | Encounter Summary ---
Demographics + + + | Address | [address] | | | [place] [address] | + + + | Home Phone [...] [place] | | | | | [address] | | + + + + + Care Team Providers + +------+ + | Care Nurse Assistant Name | Role | Phone | [...] | | | bifida | [place] | [facility] | | | | | without | COUNTY | Mailcode: | | | | | mention of | HEALTH DEPT | [facility] | | | | | hydrocephalu | [address] [place] [address] | [place], [place] | | | | | s, lumbar | [place], | [address] | | | | | region | [place] [address] | Phone: | | | | | Neurogenic | Phone: | [phone] | | | | | bladder, NOS | [phone] | Fax: | | | | | Procedures | Fax: | [phone] | | | | | [place] | [phone] | | | | | | [place],RETROPERI [...] | 05/03/ | Office | [facility] at [facility] 7th | Liliane Aldana, | Spina Bifida without | | 2007 | Visit | Floor [address] | PNP [address] | Mention of | | | | St Mailcode: [facility] | [address] | Hydrocephalus, | | | | [facility] [place] | [place], [place] | Lumbar Region | | | | [address] | [phone] | (Primary Dx) | | | | [phone] | [phone] | | | | | | | [...] that Pete had his eyes checked at [facility] about 2 years ago, and does n [...] spinal cord retethering. He is followed at [facility].I reviewed the signs and symptoms with [...]
--- OUTSIDE RECORDS SUMMARY | ~2019-10-26 | XMS | Encounter Summary ---
Demographics + + + | Address | [address] | | | [place] [address] | + + + | Home Phone [...] [place] | | | | | [address] | | + + + + + Care Team Providers + +------+ + | Care Deployment Engineer Name | Role | Phone | + +------+ + | Dajuan Jerome MD | PCP | | + +------+ + Encounter Details +--------+ + + + + | Date | Type | Department | Care Team | Description | +--------+ + + + + | 04/26/ | Car Refinisher | [facility] at [facility] 7th | Robert Johnson MD | Spina Bifida without | | 2007 | | Floor [address] | [address] | Mention of | | | | St Mailcode: [facility] | [place], [place] | Hydrocephalus, | | | | [facility] [place] | [address] | Lumbar Region; | | | | [address] | [phone] | Neurogenic Bladder, | | | | [phone] | | NOS | +--------+ + + [...] | + +---------+ + + | [facility] DEPARTMENT OF | | | | | RADIOLOGY | | | | + +---------+ + + documented in this encounter Visit Diagnoses + + | Diagnosis | + + | Spina bifida without mention of hydrocephalus, lumbar region | + + | Neurogenic bladder, NOS | + + documented in this encounter"
--- OUTSIDE RECORDS SUMMARY | ~2019-10-26 | XMS | Encounter Summary ---
Demographics + + + | Address | [address] | | | [place] [address] | + + + | Home Phone [...] [place] | | | | | [address] | | + + + + + Care Team Providers + +------+ + | Care Airline Pilot/First Officer Name | Role | Phone | + +------+ + PCP | Unavailable | + +------+ + Encounter Details +--------+ + + + + | Date | Type | Department | Care Team | Description | +--------+ + + + + | 02/20/ | Procedure - | | Report, Eeg | EEG | | 2002 | | | | | | | [...] as of this encounter Progress Notes Interface, Telepathist In - 05/30/2006 3:07 AM [facility] By: Test Date: 02/20/2003 Test Type: SSEP Posterior Tibial,EMG Specific Muscles Pertinent Meds: INTERPRETATION Conditions of recording: Intraoperative EMG and posterior tibial nerve somatosensory evoked potentials were obtained during spine surgery for cord tethering. Repetitive electrical stimulation of the posterior tibial nerve was performed at the ankles with recordings over the popliteal fossa, the cervical spine and the scalp. Spontaneous EMG as well as from direct electrical stimulation within the surgical field was recorded from gastrocnemius, hamstrings and anal sphincter bilaterally. Description of recording: The popliteal fossa potential was well defined throughout the surgery at a latency of 5 msec following left or right stimulation. The subcortical potential, N29 was present at latencies of approximately 22-23 msec. The cortical waveform, N37 was not consistently present. There were no significant changes in the posterior tibial nerve latencies or amplitudes during the surgical procedure. Continuous EMG recording was done for four hours with my direct presence in the operating room. There were intermittent leg EMG discharges that were related to manipulation of the dorsal roots as well as intermittent anal sphincter discharges. Prior to detethering, direct stimulation was performed prior to surgically cutting any tissue and no EMG responses were seen at these times. Impression: Normal intraoperative posterior tibial nerve somatosensory evoked potentials bilaterally. Intraoperative EMG with results as noted above. Sumanth Lazo M.D. d ocumented in this encounter Plan of Treatment Not on filedocumented as of this encounter Procedures + +--------+ + + + | Procedure Name | Priori | Date/Time | Associated Diagnosis | Comments | | | ty | | | | + +--------+ + + + | EEG ROUTINE | | 02/20/2003 | | | + +--------+ + + + documented in this encounter Visit Diagnoses Not on filedocumented in this encounter"
--- OUTSIDE RECORDS SUMMARY | ~2019-10-26 | XMS | Encounter Summary ---
Demographics + + + | Address | [address] | | | [place] [address] | + + + | Home Phone [...] [place] | | | | | [address] | | + + + + + Care Team Providers + +------+ + | Care Director Sales Name | Role | Phone | + +------+ + | Dajuan Jerome MD | PCP | | + +------+ + Encounter Details +--------+ + + + + | Date | Type | Department | Care Team | Description | +--------+ + + + + | 01/16/ | Hospital | Radiology at [facility] | | | | 2009 | Encounter | [address] [facility] | | | | | | Mailcode: [id number] | | | | | | [place] | | | | | | [place], [place] | | | | | | [address] | | | | | | [phone] | | | +--------+ + + + [...] + + | Performing | Address | City[facility] | Phone Number | | Organization | | | | + +---------+ + + | [facility] DEPARTMENT OF | | | [...]
--- OUTSIDE RECORDS SUMMARY | ~2019-10-26 | XMS | Encounter Summary ---
Demographics + + + | Address | [address] | | | [place] [address] | + + + | Home Phone [...] [place] | | | | | [address] | | + + + + + Care Team Providers + +------+ + | Care Supervisor Cap And Hat Production Name | Role | Phone | + [...] as of this encounter Progress Notes Interface, Group Leader Semiconductor Testing In - 07/15/2005 5:02 AM PDT [id number] 07/02/2005 07/02/2005 [id number] PAM Escobar CLINIC DATE: 07/02/2005 CLINIC NAME: Sp[facility] Bifida Clinic DISCIPLINE: Pediatric Nurse Practitioner/Staffing Summary Pete is a 9 and lvd-szla-hvzx-old male with medical history of lumbosacral lipomyelomeningocele. He returns for routine follow-up through [facility]'s Spina Bifida Program. His father, Yamil Orozco, accompanies him. Chief Concern: No acute concerns are identified but Pete does report pain at the site of right calf tendon transfer as well as occasional back pain. Database Review/Healthcare Maintenance: Primary care is newly established in [place] at the [facility]. General health has been good without significant illness, injury or accident. He was hospitalized for orthopedic surgery in December of this year. Allergies:None known. RAST testing for the presence of latex allergy not yet obtained. General latex precautions are observed. Dental care not yet established in [place]. Ophthalmology evaluation has been urged in the last year due to complaints of blurriness of far vision. Since that recommendation the family moved and thus the evaluation was not pursued. Pete continues to report some trouble with vision from the back of the classroom. Both his brothers wear glasses. Medications: Oxybutynin 5 mg t.i.d. Nutrition: History of consistent growth and weight gain. Eats full table food diet without restrictions. Review of Systems: Comprehensive review is negative except as pertains to discussion herein. Lumbosacral Lipomyelomeningocele: Repaired in 1995 with repeat spinal cord untethering surgery in February of 2003. Progression of a right foot deformity last year prompted further concerns but no additional neurosurgical intervention was thought warranted. His last spinal MRI was obtained just prior to surgery in January 2003. Pete has no complaints of shooting pain in lower back or down his legs but does note his lower back hurts when he bends over. He will experience lower back and leg pain after actively running around out of doors with other boys but can usually keep up with them in terms of activity level, however, he will tire more quickly. He also reports localized pain over the lower medial calf just proximal to the malleolus. He describes it as "like a hammer is hitting it". It will sometimes awaken him at night. Overall strength, function and endurance have improved since his foot surgery. Neurogenic Bladder: Pete takes Ditropan 5 mg t.i.d. and performs intermittent catheterization approximately every 4 hours. He has some difficulty adhering to the time schedule; he is quite forgetful and needs frequent reminders. His father plans to buy him a watch with an alarm to serve as a reminder. He is fairly dry between if he hasn't allowed too much time elapse since the last catheterization. He is always wet overnight. There have been no urinary tract infections in the interval since his last visit. He wears diapers for leaking and bowel accidents. Pete is able to self catheterize and needs no assistance with the procedure. Renal ultrasounds have recently been stable without hydronephrosis. Today's reveals normal kidneys with mild hydronephrosis on the left that resolved completely with catheterization. Neurogenic Bowel: Pete has a pattern of at least 2 bowel movements each day. He cannot keep them from passing once they are near the external sphincter. Habit training programs have been encouraged but formal habit training has been difficult to incorporate into the family schedule. Pete is able to clean himself after an accident but he does not always realize he has had one. He states he is not always aware of the odor and is sometimes told by others. Orthopedic: Pete has not had significant orthopedic deformities with the exception of his right foot and ankle. He underwent complex surgery in December (right plantar fasciotomy, stripping of the intrinsic musculature, an anterior tibialis tendon transfer to the dorsum of his midfoot, flexor hallucis longus and flexor digitorum longus tendon lengthenings) with much improvement in alignment and function. His foot is now braceable and gait much improved. Mild scoliosis has been followed on serial x-rays; a spine x-ray repeated today reveals a spine that is essentially straight without scoliosis. Neuromotor/Mobility/Equipment: Asymmetrical strength and size with right calf musculature less bulky than the left and right foot smaller with certain deficits. He now has a right AFO that gives him added stability when walking and performing multiple gross motor activities. Please refer to our team physical therapy report for specific motor activities. Pete was seen to run and skip without any difficulty today. Psychoeducational: Academic progress has been slow. A school report received from [employer] where Pete completed the 3rd grade last year, noted steady progress but "well below grade level in all academic areas". Pete receives [facility] support fo reading, writing and math. Psychometric testing has found low average intellectual abilities with a full-scale IQ score of 89. He returned for additional testing 07/20. He had some difficulty with attention and executive function items. It was suggested that he might benefit from a trial of stimulant medication. Social: Pete's family has moved to [place], [place]. He lives with both his parents and his brothers, one younger and one older. Physical Examination: Weight and stature have shown consistent gains (specific measurements not available). Please refer to growth graphics for this information. GENERAL: Pete is a friendly and cooperative young man in no apparent distress. His verbal responses are slow and he appears to be quite dreamy in style. SKIN: Smooth, without rashes or lesions. There are well-healed surgical scars on his sacral spine and right lower extremity. HEENT: Head is normocephalic, atraumatic. Eyes are clear; pupils equal, round, and reactive to light and accommodation. Extraocular movements are intact without nystagmus. Cover-uncover is negative. Red reflexes bilaterally symmetric.Ears, nose, and throat are normal in structure and placement. Tympanic membranes are clear. Palate is intact and rises symmetrically. Uvula is midline. No lymphadenopathy. Cranial nerves II-XII grossly intact. Visual acuity is not assessed. Deep tendon reflexes 2+ in upper and lower extremities, 1+ at Achilles on left. LUNGS: Clear to auscultation. HEART: Irregular rate due to sinus tachycardia. No murmur noted on auscultation. ABDOMEn: Soft and flat without hepatosplenomegaly or other masses. GENITOURINARY: Deferred today. MUSCULOSKELETAL: Full strength and range of motion in upper extremities. Hips and knees have full strength and range of motion. Resting muscle tone is not elevated. The left foot and ankle are normal in alignment and strength is intact. The right foot continues to have an exaggerated arch but alignment is much improved and foot is now plantigrade. Toes are better aligned and the foot quite stable in the AFO. The AFO fits very well. The back does appear straight when sitting. There is asymmetry of pelvis when standing but the spine itself appears to be straight. Impression: Pete is now 9 and one half years of age. He is a sweet young man whose attention wanders a great deal during the course of today's interview and examination. He has some difficulty explicitly expressing his own experiences and aptitudes especially related to his bowel and bladder programs. His father did a very nice job allowing Pete to answer questions for himself. I think Pete and his family are hopeful that he can successfully manage his bowel and bladder programs independently. This will be possible only with a closely monitored and consistently applied program. He is doing very well with self catheterization and will likely do better with the alarm watch. Pete is quite stable regarding his spinal cord deformity at this time. The pain he describes at the calf is thought to be related to the tendon transfer. The back pain is likely mechanical from muscle fatigue. His visual acuity is a concern and he needs a full ophthalmology evaluation. Spina Bifida Team Recommendations: 1. Neurosurgical: Stable, routine follow up. 2. Neurogenic Bladder: Stable. Continue current medication and catheterization schedule. If wetness between increases or becomes less tolerable, contact [facility] to discuss further urological assessment. 3. Neurogenic Bowel: Continence options are reviewed with Yamil including cecostomoy surgery for antegrade enema administration. A sustained habit-training program, consistently applied for a minimum of 6 months is recommended prior to considering surgical options. Please contact [facility] is there are any questions about a habit training program. 4. Orthopedic/Mobility: Doing so well status post orthopedic surgery. No new recommendations. 5. Psychoeducational: Due to continued academic problems and apparent attention deficits, we will refer him to our Child Development Clinic for a Special Education, Attention Deficit and Learning evaluation. 6. Opthalmology: ePte should have a baseline ophthalmology evaluation. Visual acuity needs to be determined. Plan for Follow-up: [facility] will contact Pete's primary care clinic for referral to [facility] for ophthalmology evaluation or for a referral to a local tank wagon driver. [facility] will refer for additional psychoeducation evaluations as specified above. He will return for full-team evaluation in one year. We remain available for consultation regarding any questions or concerns that arise in the interim. Nereyda Solares R.N., M.S., C.P.N.P. RCA/rca P C: 07/11/2005 rca cc: [facility] Electronically signed by Nereyda Solares 07-14-2005 05:24:06 PM documented i n this encounter Plan of Treatment Not on filedocumented as of this encounter Visit Diagnoses Not on filedocumented in this encounter
--- OUTSIDE RECORDS SUMMARY | ~2019-10-26 | XMS | Encounter Summary ---
Demographics + + + | Address | [address] | | | [place] [address] | + + + | Home Phone [...] [place] | | | | | [address] | | + + + + + Care Team Providers + +------+ + | Care Chief Cook Name | Role | Phone | + +------+ + | Dajuan Jerome MD | PCP | | + +------+ + Encounter Details +--------+ + + + + | Date | Type | Department | Care Team | Description | +--------+ + + + + | 01/17/ | Transcribed | Allergy Clinic at | Dictation, Other | Transcribed | | 1995 | | [facility] [address] | | | | | | Ashley Acevedo | | | | | | Mailcode: [id number] [facility] | | | | | | [place] | | | | | | [facility] | | | | | | [place] [address] | | | | | | [phone] | | | +--------+ + + + [...] as of this encounter Progress Notes Interface, Interventional Physiatrist In - 02/15/2007 8:49 AM PDT [address] [address] [place] DIVISION OF PEDIATRIC NEUROLOGY [address] [place] [id number] , FAX: JANUARY 18, 1996 GEOFF NG MD [address] [place] [address] [place] [address] RE:ADAMA OROZCO MR#:[id number] DEAR DOCTOR HERNANDEZ: THANK [...] BEST REGARDS, NAVA CROUCH JR., Ludwig., F.A.A.P. METROLOGY SPECIALIST, NEUROSURGERY AND PEDIATRICS Linda/WESLEY P CC: documented in this encounter Plan of Treatment Not on filedocumented as of this encounter Visit Diagnoses Not on filedocumented in this encounter"
--- OUTSIDE RECORDS SUMMARY | ~2019-10-26 | XMS | Encounter Summary ---
Demographics + + + | Address | [address] | | | [place] [address] | + + + | Home Phone [...] [place] | | | | | [address] | | + + + + + Care Team Providers + +------+ + | Care Roller Cleaner Name | Role | Phone | + [...] as of this encounter Progress Notes Interface, Business Development Director In - 06/14/2005 7:10 PM PDTClinic Date: 03/06/2004 Clinic Name Spina Bifida Clinic Discipline Neurosurgery Pete was seen for a neurosurgical evaluation in the spina bifida clinic at [facility] on 03/06/2004. Pete is an 8-year-old boy with a lumbosacral lipomyelomeningocele that was initially repaired in January 1996. He had leg and back pain at the age of 2 years and underwent spinal cord untethering in February [address] Soha Nettles because of progressive deformity of his right foot and leg pain. His father and paternal grandmother accompanied him to the visit and stated that Pete complains about every two weeks of headache. The headache usually occurs after he has had a full day of play. Occasionally he vomits with the headache. He describes them as pounding. They have not increased in frequency and they do not seem to interfere with his play. He sometimes takes Tylenol and goes to sleep and when he awakens he is headache free. There is a family history of migraines in his paternal grandmother. Pete says that his legs hurt, particularly his knees, and he gets cramps in his hamstrings and gastrocnemii bilaterally. This occurs about twice a week and causes him to stop playing. His father believes that his right foot is intoeing more. His energy level has increased, however. There have been no changes in his bowel and bladder function. He catheterizes himself every four hours. He has not recently taken his Ditropan, but is planning to start back on that. Pete does not have complaints of neck or back pain. On examination, Pete was brightly alert and cooperative. His pupils were equal and reactive to light and accommodation. He had full extraocular movements without nystagmus. His disc margins were sharp and he had venous pulsations bilaterally. His facial movements were symmetric. His facial sensation was intact. His tongue and uvula were midline. He had full strength in his upper extremities and in his bilateral iliopsoas, left quadriceps, and hamstrings. His right quadriceps was 4+/5. His plantar flexors and dorsiflexors were 5/5. His left EHL was also 5/5. His right EHL was 4+ to 5-/5. The musculature of his right calf was diminished as compared to the left and his right foot was smaller than the left. He had a relatively rigid foot that was medially deviated with a very high arch and a plantar flexion contracture. He had clawing of the toes on the right. His deep tendon reflexes were 2+ in the upper extremities and at the patella, and 0 at the Achilles. On forward bend he had a scoliosis that was convex to the right. He had no response to stroking in his right plantar surface. He had downgoing toes on the left and a shallow decubitus ulcer on the left fifth toe. In talking with other team members, Pete's father gives a varying history for leg cramping and pain. His right foot deformity has been not tremendously progressive over the past year according to other team members. I discussed his examination with Dr. Nettles who did not feel that a spine MRI was indicated at this time. We will follow Pete for a routine neurosurgical evaluation in one year. Karoline MorrisN.P. Pediatric Nurse Practitioner [id number] A [id number] signed by Interface, Business Development Director In at 06/14/2005 7:10 PM [facility] umented in this encounter Plan of Treatment Not on filedocumented as of this encounter Visit Diagnoses Not on filedocumented in this encounter"
--- OUTSIDE RECORDS SUMMARY | ~2019-10-26 | XMS | Encounter Summary ---
Demographics + + + | Address | [address] | | | [place] [address] | + + + | Home Phone | | + + + | Preferred Language | Unknown | + + + | Marital Status | Single | + + + | Denominational Affiliation | CHR | + + + [...] [place] | | | | | [address] | | + + + + + Care Team Providers + +------+ + | Care Sales Exec Name | Role | Phone | + [...] as of this encounter Progress Notes Interface, Retirement Officer In - 06/15/2005 7:41 AM PDT [id number] 07/31/2004 07/31/2004 [id number] MCKAY Escobar CLINIC DATE: 07/31/2004 CLINIC NAME: [...] live at home with his parents in [place], [place]. Family history is significant for a half-brother diagnosed with Attention Deficit Hyperactivity Disorder (ADHD). Pete's primary care physician continues to be Dr. Umm Kaufman. 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 He is eligible for special education [...] and he will make a referral to [facility] to make sure there are no vision [...] do not hesitate to contact me at [phone]. Huber Diehl, Ph.D. Psychologist [id number]/[id number] P C: 08/12/2004 [email or web address] [id number] CC: Robert Johnson [facility] Developmental Gas Pipe Layer documented i n this encounter Plan of Treatment Not on filedocumented as of this encounter Visit Diagnoses Not on filedocumented in this encounter"
--- OUTSIDE RECORDS SUMMARY | ~2019-10-26 | XMS | Encounter Summary ---
Demographics + + + | Address | [address] | | | [place] [address] | + + + | Home Phone [...] + + + | Author | [facility] | + + + | Organization | [facility] | + + + | Address | Unknown | + + + | Phone | Unavailable | + + + Support + + + + + | Name | Relationship | Address | Phone | + + + + + | Sarahi Orozco | ECON | [address] | | | | | [place] | | | | | [address] | | + + + + + Care Team Providers + +------+ + | Care Instrument Lens Grinder Name | Role | Phone | + +------+ + | Dajuan Jerome MD | PCP | | + +------+ + Encounter Details +--------+ + + + + | Date | Type | Department | Care Team | Description | +--------+ + + + + | 01/02/ | Office | [facility] | Report, [...] as of this encounter Progress Notes Interface, Telecommunication Operator In - 11/13/2006 3:02 AM PSTCLINIC DATE: 01/02/1999 CLINIC NAME: [facility] DISCIPLINE: NEUROSURGERY Pete is 3 years of age. He has lipomyelomeningocele. Pete is in clinic today because he has been experiencing back pain. The pain disturbs his sleep two or three nights per week. It does not limit his activities in any way during the day. In the past, he has sometimes mentioned leg pain, but leg pain is not prominent at this time. His pain complaints have waxed and waned over the course of months. His current symptoms began about two months ago without any identifiable cause. Mother is also concerned about abdominal pain. She says that Ptee takes a few bites of food at the table and then will not eat anymore because of abdominal pain. She does not think that Pete is constipated. Pete voids spontaneously. He is not on any catheterization program. He is not yet toilet-trained. EXAMINATION: Pete looks comfortable today and he is in a good mood. He complains about various body parts that he says are painful, including his back, his abdomen, and his ear. He is quite suggestible. The lower limbs have the same length. The right leg is about 5 mm greater in circumference than the left. The left foot is narrow compared to the right. Fine toe movements seem perfectly normal. The patella and the Achilles reflexes are all present. Pete's gait looks normal. Straight leg raising to 90 degrees brings the buttocks about 1 cm off the table. The popliteal angle is about 5 degrees bilaterally. The abdomen is protuberant and soft. IMPRESSION: Lipomyelomeningocele. Pete is experiencing nocturnal back pain that awakens him from sleep several times a week, but this symptom is not limiting his activities. I expect that it represents a nonspecific sensitivity at the site of his lipomyelomeningocele repair. There is no current reason to think that it represents spinal cord tethering or that it requires further neurosurgical consideration. PLAN: Pete will return for a full clinic evaluation in early January, and I shall reassess him then. Shiraz Vance Jr., Ludwig., F.A.A.P. Histology Assistant, Department of Neurological Surgery and Pediatrics JHP:sgr cc: GEOFF NG MD [address] [facility] [place] [id number] signed by Interface, Telecommunication Operator In at 11/13/2006 3:02 AM PSTdocumented in this encounter Plan of Treatment Not on filedocumented as of this encounter Visit Diagnoses Not on filedocumented in this encounter"
--- OUTSIDE RECORDS SUMMARY | ~2019-10-26 | XMS | Encounter Summary ---
Demographics + + + | Address | [address] | | | [place] [address] | + + + | Home Phone [...] [place] | | | | | [address] | | + + + + + Care Team Providers + +------+ + | Care Pain Coordinator Name | Role | Phone | + +------+ + | Umm Kaufman MD | PCP | | + +------+ + Reason for Visit + + + | Reason | Comments | + + + | Follow-up visit | | + + + | Spina [...] | | Bifida | Neurogenic | Umm L, MD | Bifida 707 | | | | | bladder, NOS | PEDS | [address] | | | | | Neurogenic | SPECIALISTS | Mailcode: | | | | | bowel | OF [place] | [facility] | | | | | Procedures | [address] | [place], [place] | | | | | [address] | [address] | [address] | | | | | PATIENT | [address] | Phone: | | | | | LEVEL 5 MM, | [place], | [phone] | | | | | [place] | [place] [address] | Fax: | | | | | | Phone: | [phone] | | | | | | [phone] | | | | | | | Fax: | | | | | | | [phone] | | +--------+--------+ + + + + Encounter Details +--------+---------+ + + + | Date | Type | Department | Care Team | Description | +--------+---------+ + + + | 04/07/ | Office | [facility] | Shani Johnson MD | Lipomyelomeningocele | | 2010 | Visit | Floor [address] | [address] | ; Tethering of | | | | St Mailcode: [facility] | [place], [place] | spinal cord (HCC); | | | | [facility], [place] | [address] | Abnormal gait; | | | | [address] | [phone] | Neurogenic bladder, | | | | [phone] | | NOS; History of | | | | | | migraine headaches | +--------+---------+ + + + Social History [...] | Blood Pressure | 130/71 | 04/07/2011 12:17 PM | | | | | PDT | | + + + + + | Pulse | 74 | 04/07/2011 12:17 PM | | | | | PDT [...] 57.9 kg (127 lb 10.3 | 04/07/2011 12:17 PM | with cam-walker on | | | oz) | PDT | | + + + + + | Height | 173.7 cm (5' 8.39") | 04/07/2011 12:17 PM | | | | | PDT | | + + + + + | Body Mass Index | 19.19 | 04/07/2011 12:17 PM | | | | | PDT | | + + + + + documented in this encounter Progress Notes Merkens, Shani, MD - 04/07/2011 1:16 PM PDT[facility] Chief Complaint: A 15-year-old returns to evaluate for possible spinal cord tethering. Primary Provider: Umm Kaufman MD, Pediatric Specialist of [address], [address], [place], [place] [address] HPI: We have seen Pete in followup for possible spinal cord tethering. Last visit was in December 18, 2010. He had a history of his first urinary tract infection, difficulty with stairs, increasing risk of falling with decreased sense of balance. On exam in September, w e noted some declines in proprioception. At the last visit, however, he described his jcarlos ce has improved, and the exam similarly was improved. In the interim, we referred him for urodynamics which was just carried out in 01/17/2011. He was found to have no vesicoureteral reflux, areflexic bladder with poor compliance, and e levated DLPT at greater than 40 cm of water. This was essentially unchanged from the last s tudy. These findings endorsed efficacy of bladder augmentation surgery, but also do not end orse progression of spinal cord tethering symptoms. He has not had any urinary infections, nor change in urine and bowel function. No change i n sensory levels, which are intact in the L4 dermatome, diminished or spotty in the L5 derma tome, and particularly on the plantar surface bilaterally. Balance has improved. Orthopedics: He had a cavus foot which was increasing. He has been followed closely by Dr Ion Cantrell, at [facility] in [place]. Six weeks ago, he had surge ry to relax the cavus, transfer tendon (posterior tibialis ?), and fuse the larger 4 toes. This went successfully and today he returned to get the hardware removed (2 screws from the medial aspect of the arch, and pins from each of the 4 toes). In the interim this has of course impacted his ambulation. He has been required to be in w heelchair except for transfers and climbing stairs using crutches. He does report that his balance is actually improved. Migraine Headaches: At the last visit, he was seen by a pediatric neurologist, Jacoby camargo. He is having twice a week "sick headaches," characteristic of migraines. Topamax was s tarted and recommended to be monitored by Dr. Kaufman. Pete reports that in the interim, the headaches have decreased in frequency to average o nce a week, but unfortunately increased in severity. Hopefully over the longer term, there will be preventive effect of the Topamax. Neurogenic Bladder: As above, scheduled for admission tomorrow for placement of bladder au gmentation using the Payvmentofah ball. He has resumed taking Ditropan, he claims. Hopefully, th is can be discontinued after this bladder surgery. Physical Examination: Blood pressure 130/71, pulse 74. Head circumference 55.5 cm, weight 57.9 cm, height 173.7 cm (5 feet 8 inches). 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 Multiple small b andages and puncture sites on the right foot. Alert, oriented, appropriate for chronologic age. No distress, though he does report pain at level 8 (hardware just removed from feet). 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 Leg-length discrepancy, only 1 cm. No mobility in the right foot which now has multiple toes fused. Neurological: Ux Consultant nial nerves intact. In the upper extremities, normal strength and tone. In the lower extre mities, DTRs are present, 2/4 at both knees, perhaps even brisk at the right knee. Absent a t the ankles (as per my previous exam). Vibratory sensation is intact and complete at both great toes. Fine touch is intact in the L4 dermatome, diminished and spotty in the L5 derma tome, and diminished on the dorsum and particularly the plantar surfaces of both feet, symme trically. Muscle strength across the knees is 5/5 with hamstrings and quadriceps bilaterall y. 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 -Neurological exam stable, unchanged. Abnormal gait [781.2F] -s/p foot surgery 6 weeks ago, hardware removed today -has limited ambulation NEUROGENIC BLADDER, NOS [596.54] -scheduled tomorrow for bladder augmentation and placement of cecostomy. Migraine Headaches [v17.49] RECOMMENDATIONS: -Increase ambulation as per Orthopedics. -Preop today with Pediatric Urology, Dr. Douglas. -Will he require oxybutynin after augment surgery? -Already pre-oped for cecostomy. -Would recommend continued Topamax or some other medication for migraines as per Dr. Kaufman . -Return for comprehensive eval of this complex condition after next winter, call earlier if any set backs in ambulation, balance, pain. -I spent 30 minutes in direct encounter with this patient, >50% counseling and/or coordinat ion of care. 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
--- OUTSIDE RECORDS SUMMARY | ~2019-10-26 | XMS | Encounter Summary ---
Demographics + + + | Address | [address] | | | [place] [address] | + + + | Home Phone | | + + + | Preferred Language | Unknown | + + + | Marital Status | Single | + + + | Catholic Affiliation | CHR | + + [...] [place] | | | | | [address] | | + + + + + Care Team Providers + +------+ + | Care Monogram And Letter Paster Name | Role | Phone | + [...] as of this encounter Progress Notes Interface, Maxillofacial Surgeon In - 07/15/2005 5:02 AM PDT [id number] 07/02/2005 07/02/2005 [id number] PAM Escobar CLINIC DATE: 07/02/2005 CLINIC NAME: [facility] DISCIPLINE: Pediatric Nurse Practitioner/Staffing Summary Pete is a 9 and [age]-krl[age]-aowu-old male with medical history of lumbosacral lipomyelomeningocele. He returns for routine follow-up through [facility]. His father, Yamil Orozco, accompanies him. Chief Concern: No acute concerns are identified but Pete does report pain at the site of right calf tendon transfer as well as occasional back pain. Database Review/Healthcare Maintenance: Primary care is newly established in [place] at the [facility]. General health has been good without significant illness, injury or accident. He was hospitalized for orthopedic surgery in December of this year. Allergies:None known. RAST testing for the presence of latex allergy not yet obtained. General latex precautions are observed. Dental care not yet established in [place]. Ophthalmology evaluation has been urged in the [...] been slow. A school report received from [employer] where Pete completed the 3rd grade last [...] medication. Social: Pete's family has moved to [place], [place]. He lives with both his parents and his brothers, one younger and one older. Physical Examination: Weight and stature have shown consistent gains (specific measurements not available). Please refer to growth graphics for this information. GENERAL: ePte is a friendly and cooperative young man [...] between increases or becomes less tolerable, contact [facility] to discuss further urological assessment. 3. Neurogenic Bowel: Continence options are reviewed with Yamil including cecostomoy surgery for antegrade enema administration. A sustained habit-training program, consistently applied for a minimum of 6 months is recommended prior to considering surgical options. Please contact [facility] is there are any questions about a habit training program. 4. Orthopedic/Mobility: Doing so well status post orthopedic surgery. No new recommendations. 5. Psychoeducational: Due to continued academic problems and apparent attention deficits, we will refer him to our Child Development [facility] for a Special Education, Attention Deficit and Learning evaluation. 6. Opthalmology: Pete should have a baseline ophthalmology evaluation. Visual acuity needs to be determined. Plan for Follow-up: [facility] will contact Pete's primary care clinic for referral to [facility] for ophthalmology evaluation or for a referral to a local technical publications writer. [facility] will refer for additional psychoeducation evaluations as specified above. He will return for full-team evaluation in one year. We remain available for consultation regarding any questions or concerns that arise in the interim. Nereyda Solares R.N., M.S., C.P.N.P. RCA/rca P C: 07/11/2005 rca cc: [facility] Electronically signed by Nereyda Solares 07-14-2005 05:24:06 PM documented i n this encounter Plan of Treatment Not on filedocumented as of this encounter Visit Diagnoses Not on filedocumented in this encounter
--- OUTSIDE RECORDS SUMMARY | ~2019-10-26 | XMS | Encounter Summary ---
Demographics + + + | Address | [address] | | | [place] [address] | + + + | Home Phone [...] [place] | | | | | [address] | | + + + + + Care Team Providers + +------+ + | Care Timekeeping Supervisor Name | Role | Phone | + +------+ + | Dajuan Jerome MD | PCP | | + +------+ + Reason for Visit + + + | Reason | Comments | + + + | Scoliosis | | + + + Consultation (Routine) +--------+--------+ + + + + | Status | Reason | Specialty | Diagnoses / | Referred By | Referred To | | | | | Procedures | Contact | Contact | +--------+--------+ + + + + | Closed | | [facility] Spina | Diagnoses | Efraín Jerome Cdr Spina | | | | Bifida | Spina | Dajuan Hinson MD | Bifida [address] | | | | | bifida | [place] | [address] | | | | | without | COUNTY | Mailcode: | | | | | mention of | HEALTH DEPT | [facility] | | | | | hydrocephalu | [address] | [place], [place] | | | | | s, lumbar | [place], | [address] | | | | | region | [place] [address] | Phone: | | | | | Neurogenic | Phone: | [phone] | | | | | bladder, NOS | [phone] | Fax: | | | | | Procedures | Fax: | [phone] | | | | | MM,WF | [phone] | | +--------+--------+ + + + + Encounter Details +--------+---------+ + + + | Date | Type | Department | Care Team | Description | +--------+---------+ + + + | 10/02/ | Office | [facility] at [facility] 7th | Robert Johnson MD | Lipomyelomeningocele | | 2009 | Visit | Floor [address] | [address] | ; Scoliosis; Leg | | | | St Mailcode: [facility] | [place], [place] | Length Discrepancy, | | | | [facility], [place] | [address] | right; [place], | | | | [address] | [phone] | right; Tethering of | | | | [phone] | | spinal cord (HCC); | | [...] + + + | Blood Pressure | 122/74 | 10/02/2010 3:17 PM | | | | | PST | | + + + + + | Pulse | 61 | 10/02/2010 3:17 PM | | | | | PST [...] + + + + | Weight | 55.2 kg (121 lb 11.1 | 10/02/2010 3:17 PM | | | | oz) | PST | | + + + + + | Height | 171.4 cm (5' 7.48") | 10/02/2010 3:17 PM | | | | | PST | | + + + + + | Body Mass Index | 18.79 | 10/02/2010 3:17 PM | | | | | PST | | + + + + + documented in this encounter Progress Notes Robert Johnson MD - 10/02/2010 5:36 PM [facility] Developmental [facility] Chief Complaint: A 14-year-old with headaches, progressive scoliosis, and progressive clum siness; rule out spinal cord tethering. Primary Provider: Has recently moved to [place], [place] to reside with his father; [facility] provider not yet established. History of Present Illness: Pete was last seen for a comprehensive team evaluation on 0 01/16/2010. He carries an underlying diagnosis of lipomyelomeningocele, with shorter right l eg, neurogenic bowel and bladder. He had urodynamics on 11/15/2009, and scoliosis x-rays on 01/16/2010. He returns today because of concern as the chief complaint as above. Father notes that his gait is unsteady, and he has to hold onto things or seek balance more than before. He has not actually fallen, but it is clearly visible. He also has a recent history of headaches a couple times per week characterized by an aura, photophobia, noise intolerance, sometimes nausea and once sleeping off. He does state that they are improved with ibuprofen. There is no significant family history, but in our exper ience, migraines are much more common in persons experiencing neural tube defects. In addition, the father has noted his scoliosis and feels that it is quickly progressive. Lipomyelomeningocele: Original operation at a few months age in 1995, and on tethering in 2002. No specific new symptoms except as above. Orthopedics: He is in the midst of puberty growth spurt. Scoliosis x-ray, as above, did s how upper thoracic levoscoliosis 6 degrees, and thoracolumbar dextro curvature 7 degrees wit h tilt of the left hemipelvis. He does have a right leg length discrepancy, shorter in the tibial segment by 2.5 cm. He wears an AFO, newly constructed at [facility]. Scheduled follow up in a year or two with Dr. Cantrell. On exam today, we can see a visible hump in the right lumbar region. We will obtain x-rays . Neurogenic Bladder: Urodynamics last October. Showed poor bladder compliance, highly tra beculated, did not leak until greater than 40 cm water pressure. Recommendations were and h e carries out clean intermittent catheterization 5 times per day as well as. Anticholinergi c was prescribed and now he is taking Ditropan XL 5 mg once daily. He has not had a UTI but perhaps once in his life. Family Situation: The parents are and . He had been living with mother in [place], while his younger brother resided with father in [place]. Pete has now m pamela to join father. School: He is a freshman. He certainly feels like a newcomer. Formal cognitive evaluatio n was in 2000, showed full-scale IQ of 89 without a significant split; repeated in second gr evangelista showing executive function, spatial and memory scores ranging from 72 to 86, W[employer]SC in 200 6 at school showed processing speed 80, full-scale IQ 70. Now participates in support in [facility] for some subjects. Physical Examination: Blood pressure 122/74, pulse 61. Weight 55.2 kg (50 percentile). H eight 171.4 cm (65 percentile). BMI 35 percentile. Head circumference 56.0 cm (75 percenti le). General Appearance: A well adolescent male with only somatic variation being a shorte armani right distal lower extremity with diminished calf musculature and a smaller right foot. Alert, oriented, appropriate, cooperative, and conversant. HEENT: Normocephalic. Neck: Supple. Chest and Back: There is a well-healed midline surgical scar over the lumbosacral region without hirsutism, drainage, discoloration, or paresthesia; mild scoliosis when he be nds forward, with a slight hump in the right lumbar region. Lungs: Clear to auscultation. Heart: Regular rhythm and physiologic sounds. Abdomen: No organomegaly, masses, tenderne ss, or guarding. Genital and Rectal: Deferred, and he is wearing continence devices. Skin : No significant lesions. Lymphatics are normal. Orthopedics: The right calf and foot ar e obviously hypoplastic, and the right distal lower extremity tibial segment is 2.5 cm short er; the pelvis is tilted down on the right. Neurological: Cranial nerves 2 through 12 are i ntact. Normal function in the upper extremities. In the lower extremities, the DTRs are 1/ 4 at the knees, just present at the left ankle, absent at the right ankle. Vibratory sensat ion is intact, but slightly diminished at the right great toe. Similarly, position sense is intact at both great toes. His gait appears smooth, but he does have instability at the [facility] ankle, and because of weakness, the right foot is placed in a nonorganized fashion. ULTRASOUND OF THE KIDNEYS AND BLADDER, 10/02/10 [...] hemipelvis. 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 -Meantime they can try treating the migraine headaches with Excedrin Migraine pills. -I will present today's findings (scoliosis, loss of kinesthetic awareness right ankle/foot ) to Pediatric Neurosurgeon Dr. Js Deng. Does he think this is neurogenic, from spina l cord tethering, which indicates surgical intervention? -He is scheduled back to [facility] to Dr. Cantrell, Pediatric Orthopedist, November 04. -Back to this clinic November 06, to be seen in follow up by Pediatric Urolo gy, Dr. Christos Douglas in follow up with the Urodynamics 11/15/09. -Same day to be seen again by Developmental Pediatrics and PT to monitor for spinal cord te thering. We will do manual motor testing on return, for objective monitoring. -We will then present more objective and longitudinal findings to Dr. Deng to monitor fo r spinal cord tethering. If indicated, then spinal MRI would be imaged and referred. -I spent 45 minutes in direct encounter with this patient, >50% counseling and/or coordinat ion of care. Robert Johnson MD MM / HS [id number] / [id number] / [id number] / documented in this enco unter Plan of Treatment Not on filedocumented as of this encounter Results X-RAY SCOLI SPINE ENTIRE 36 1 VIEW (10/03/2010 9:26 AM PST) + + + + + + | Component | Value | Ref Range | Performed | Pathologist | | | | | At | Signature | + + + + + + | SCOLI SPINE | Exam: SPINE, ENTIRE 36" | | | | | ENTIRE 36 | AP, 1 VIEW 10/03/10 | | | | | 1 VIEW | 09:26:00 Clinical | | | | | | History: follow up, | | | | | | appears worse | | | | | | Comparison: 01/16/2010 | | | | | | Impression: Thoracic | | | | | | levocurvature and lumbar | | | | | | dextrocurvature | | | | | | areunchanged and measure | | | | | | 6 and 7 degrees, | | | | | | respectively. There | | | | | | iscephalad tilt of the | | | | | | left hemipelvis. | | | | | | Lumbosacral dysraphism | | | | | | areagain noted. I have | | | | | | personally viewed this | | | | | | procedure/exam and | | | | | | reviewed this report. | | | | | | Author: MELODY BERRY, | | | | | | MDReviewer: PRASANNA | | | | | | Morris VICTOR STATUS | | | | | | FINAL / Dr. 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
--- OUTSIDE RECORDS SUMMARY | ~2019-10-26 | XMS | Encounter Summary ---
Demographics + + + | Address | [address] | | | [place] [address] | + + + | Home Phone [...] [place] | | | | | [address] | | + + + + + Care Team Providers + +------+ + | Care Vending Machine Collector Name | Role | Phone | + [...] as of this encounter Progress Notes Interface, Fork Truck Driver In - 06/15/2005 7:41 AM PDT [id number] 07/31/2004 08/12/2004 [id number] PAM Escobar [facility] [address] [place] [address] August 12, 2004 Abdulkadir George M.D. [facility] [address] [place] [address] RE: Pete Orozco MR# [id number] [...] should have an annual evaluation by an protein purification scientist to monitor cupping as a sign of increased intracranial pressure or POLICE SERGEANT shunt failure. I therefore strongly recommend referral to an protein purification scientist as soon as possible and annual followup. We would even ask that notes be forwarded to our records. Thank you for your consideration of this matter. Sincerely, Robert Johnson M.D. Developmental Manager Express, Director, Spina Bifida Program MM/x71 A [id number] cc: WENDY MEDINA [address] [facility] [id number] documented i n this encounter Plan of Treatment Not on filedocumented as of this encounter Visit Diagnoses Not on filedocumented in this encounter"
--- OUTSIDE RECORDS SUMMARY | ~2019-10-26 | XMS | Encounter Summary ---
Demographics + + + | Address | [address] | | | [place] [address] | + + + | Home Phone [...] [place] | | | | | [address] | | + + + + + Care Team Providers + +------+ + | Care Recovery Specialist Name | Role | Phone | [...] | | | bifida | [place] | [facility] | | | | | without | COUNTY | Mailcode: | | | | | mention of | HEALTH DEPT | [facility] | | | | | hydrocephalu | [address] [place] [address] | [place], [place] | | | | | s, lumbar | [place], | [address] | | | | | region | [place] [address] | Phone: | | | | | Neurogenic | Phone: | [phone] | | | | | bladder, NOS | [phone] | Fax: | | | | | Procedures | Fax: | [phone] | | | | | SB SPECIAL | [phone] | | | | | | MM, [...] | mention of | | | | [place] | [address] | hydrocephalus, | | | | [place] | [place], [place] | lumbar region; | | | | [place], [place] | [address] | Neurogenic bladder, | | | | [address] | [phone] | NOS | | | | [phone] | | | +--------+---------+ + + + [...] Urology Clinic Note Patient: Pete Rendon Pam [id number] Date of Visit: 01/16/2010 Attending Provider: Naty [...] complex orthopedic surgery 10/26/07 DR. MERARY AYALA ([facility]) Right ankle/foot orthopedic surgery 06/2009 DR. MERARY AYALA ([facility]) Family History Problem Relation Non-contributory No other known family history of NTD Current Medication List Name Sig [facility]Non-Drug; Combo Route) route. OXYBUTYNIN CHLORIDE SR 10 [...] brother, Dave, lives with his aunt in [place], [place]. Pete is the middle child. Nathan paul live in [place], [place] where he attends school. Review of [...] u/s J. 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
--- OUTSIDE RECORDS SUMMARY | ~2019-10-26 | XMS | Encounter Summary ---
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 Pete walks independently. Pete came to clinic today with his father. Pete is a pleasant young man who was cleanly dressed and groomed today. He stayed busy playing during the social work interview with his father, occasionally contributing appropriately to the conversation. Pete lives in a home his family owns in [place], [place], which is near [place]. He lives with his mother, father, brother, Dave, who is 14 and brother, Jared, who is 7 years old. Pete's father reports that Pete plays well and is good friends with Jared. Pete's father works as a jukebox route driver. Pete's mother works in an adult foster usp. Pete completed the 3rd grade this past year and will be entering the 4th grade this coming year. He is on an IEP at school and gets extra help in the resource room at school. Pete's family recently moved to their new home in [place] from [place]. The move took place because Pete's father found a new job in [place]. Pete is covered by the [facility]. Pete's parents applied for SSI benefits for him and he was denied due to insufficient impairment. Pete's father explained that he plans to seek the services of an estate planning attorney to appeal this decision, but has had difficulty in finding one that will assist with disability cases for children. The family was provided with a brochure for SSI today, a number for their local [employer], which may be able to provide them a referral to an appropriate estate planning attorney and the phone number for their local Developmental Disabilities office. No other social work needs were identified at this time, however, social work remains available to the family as needed. Please see all other reports for this date. Dea Ng [facility] Inspector Handbag Frames YARA/yara P cc: Electronically signed by Dea Ng 07-14-2005 10:25:12 AM documented i n this encounter Plan of Treatment Not on filedocumented as of this encounter Visit Diagnoses Not on filedocumented in this encounter"
--- OUTSIDE RECORDS SUMMARY | ~2019-10-26 | XMS | Encounter Summary ---
Demographics + + + | Address | [address] | | | [place] [address] | + + + | Home Phone [...] [place] | | | | | [address] | | + + + + + Care Team Providers + +------+ + | Care Station Attendant Name | Role | Phone | + +------+ + | Umm Kaufman MD | PCP | | + +------+ + Encounter Details +--------+ + + + + | Date | Type | Department | Care Team | Description | +--------+ + + + + | 12/18/ | Orders Only | [facility] at [facility] 7th | Lj [place], | Lipomyelomeningocele | | 2010 | | Floor [address] [place] | ; Neurogenic | | | | St Mailcode: [facility] | | bladder, NOS | | | | [facility] [place], [place] | | | | | | [address] | | | | | | [phone] | | | +--------+ + + + [...]
--- OUTSIDE RECORDS SUMMARY | ~2019-10-26 | XMS | Encounter Summary ---
Demographics + + + | Address | [address] | | | [place] [address] | + + + | Home Phone [...] [place] | | | | | [address] | | + + + + + Care Team Providers + +------+ + | Care Mathematics Professor Name | Role | Phone | [...] | | [facility] Spina | Diagnoses | Rosalioi, | Cdr Spina | | | | Bifida | Spina | Dajuan Hinson MD | Bifida 707 | | | | | bifida | [place] | [facility] | | | | | without | COUNTY | Mailcode: | | | | | mention of | HEALTH DEPT | [facility] | | | | | hydrocephalu | [address] | [place], [place] | | | | | s, lumbar | [place], | [address] | | | | | region | [place] [address] | Phone: | | | | | Neurogenic | Phone: | [phone] | | | | | bladder, NOS | [phone] | Fax: | | | | | Procedures | Fax: | [phone] | | | | | MM,WF | [phone] | | +--------+--------+ + + + + Encounter Details +--------+---------+ + + + | Date | Type | Department | Care Team | Description | +--------+---------+ + + + | 10/02/ | Office | [facility] at [facility] 7th | Cy Hutson | Lipomyelomeningocele | | 2009 | Visit | Floor [address] | ., PT [address] | ; Scoliosis; | | | | St Mailcode: [facility] | [address] | Monoparesis ([facility]); | | | | [facility], [place] | [place], [place] [facility] | Contracture of ankle | | | | [id number] | | and foot joint; Leg | | | | [phone] | | Length Discrepancy, | | | | | | right; 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 PHYSICAL THERAPY EVALUATION [facility] DATE OF SERVICE: 10/02/2010 DATE: 1995 AGE: 14 years and 1 month PRIMARY CARE PHYSICIAN: Dajuan Jerome MD REASON FOR VISIT: Special appointment: Interim evaluation re: new complaints of neck and b ack pain. His last clinic visit (LCV), for full-team Evaluation was 01/16/2010. BACKGROUND AND DIAGNOSES: Pete attended clinic today for evaluation. His father and his fiance accompanied him. My Last Clinic Visit (LCV) with him was 09/12/09. Pete is 14 years and 1 month of age. 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 At [...] He derived good results from the procedure. 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 MERARY AYALA ([facility]) Right ankle/foot orthopedic surgery 06/2009 DR. MERARY AYALA ([facility]) FAMILY AND PATIENT CONCERNS: Pete's father reports posture and gait changes. He reports much tripping, stumbling and falling. Pete corroborates the tripping and stumbling and a cknowledges that he has fallen a few times. REPORT OF PAIN: Upon inquiry there was no pain reported and none evident. SERVICES: Pete is not currently involved in any Physical Therapy (PT) services. He remai ns enrolled at [facility] in [place] for orthopedic care and orthotic management. He has a follow-up appointment at [facility] on 11/04/10. GENERAL OBSERVATIONS AND BEHAVIOR: Pete was awake alert and pleasantly responsive. Most remarkable is his posture. His trunk is shifted rightward over his lower body. He has a quit e visible right lumbo-thoracic curve as well as an apparently compensatory left upper thorac ic curve. He tolerates physical examination quite well and complies with requests for activity such as gait. I was able to make an accurate assessment of his status. MUSCULOSKELETAL EXAMINATION: Pete has a paradoxical leg length discrepancy, that I have previously measured at 2.5 cm. The right leg is the shorter one. The discrepancy appeared t o be in the tibial component. However, the right femur appears to be longer than the left. Most remarkable today is the visibility of his pelvic obliquity and the scoliosis. Both chi ve been previously described are even more exaggerated now. The left side of the pelvis is e levated, the right side dropping to meet the shorter leg. There is a visible rightward shift of his trunk in standing and walking. There is a visible left upper thoracic and right thor acolumbar curve that does not reverse with forward flexion of his trunk. The midline scar on his back has migrated rightward, visibly off midline now. I cannot appreciate a rotational component. Pete's right foot and ankle are in good alignment with excellent neutral plantigrade po sition amenable to orthotic wear. And, elsewhere his musculoskeletal examination is benign a nd normal for age. His range of motion, alignment and joint integrity in his other limbs, an d proximally in the right lower limb, are intact and normal for age. Aside from his midline surgical repair scar there are no anomalous structures. NEUROMOTOR EXAMINATION: Pete has monoparesis in the form of distal weakness in his right lower limb. This is unchanged. What is apparently new is that he has poor proprioception an d kinesthetic awareness of his right foot and ankle. These sensory functions are intact else where. He has always had diminished but present tactile sensation in his right foot. Otherwise his neuromotor examination is unchanged: essentially benign and normal. His rest ing muscle tone in his preserved musculature is normal throughout. His reflex integration is complete. There are no long tract signs. He displays no abnormal posturing, or any abnormal or adventitious movements. His muscle activation in his preserved musculature is normal wit h isolated movement control appropriate for age. Aside from his monoplegia there is no focal or generalized weakness. Instead strength in these muscles is normal. There is no tremor or dysmetria or any other cerebellar signs. POSTURAL CONTROL: All of Pete's postural control mechanisms are intact and his sense of balance is functionally effective and appropriate for age. Falling is a concern. He reveals this with his slow and quite deliberate gait. EQUIPMENT: Pete has fashioned a lift that he has inserted into his right shoe. This slig htly redresses the pelvic obliquity. He did not have his right Ankle Foot Orthosis (AFO) wit h him. Temporarily adding more lift redressed the pelvic obliquity more effectively and he r eported feeling more comfortable. GAIT: Pete's gait is now remarkably slow and deliberate. The placement of the right foot is inconsistent and he appears to have to make adjustments to its placement after foot stri ke. He declined to run. As recently as his LCV 01/16/10 I described his gait as essentially normal, except for the drop-off at end-stance on the right, reflecting the right ankle and foot weakness. At that time he could run fast and well, and perform all manner of advanced dynamic upright activiti es except for those requiring the strong activation of his right ankle-foot musculature. He was playing sports competitively with age peers. ASSESSMENT: Has new sensory deficit affecting his right foot and ankle and is showing appar ent progression of his scoliosis. RECOMMENDATIONS: I concurred with recommendation to bring his status to the consideration o f Js Deng MD, [facility] Neurosurgery. I did urge him to keep the upcoming 11/04/10 return appointment at [facility]. I did not make specific recommendations for PT or related referral. I did recommend return PT Evaluation in this clinic. Because of Pete's status and the risk for adverse change r elated to the underlying diagnoses I will plan to evaluate him again at the next scheduled f l team appointment with the [facility]. Pete and his father appeared to appreciate these assessments and recommendations. It was a pleasure seeing Pete and his father again today. I welcome questions related to this report at [phone]. 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
--- OUTSIDE RECORDS SUMMARY | ~2019-10-26 | XMS | Encounter Summary ---
Demographics + + + | Address | [address] | | | [place] [address] | + + + | Home Phone [...] [place] | | | | | [address] | | + + + + + Care Team Providers + +------+ + | Care Family Nurse Name | Role | Phone | + +------+ + | Dajuan Jerome MD | PCP | | + +------+ + Encounter Details +--------+ + + + + | Date | Type | Department | Care Team | Description | +--------+ + + + + | 08/07/ | Office | [facility] | Report, [...] as of this encounter Progress Notes Interface, Oyster Picker In - 10/26/2006 5:03 AM PSTCLINIC DATE: 08/07/1999 CLINIC NAME:[facility] DISCIPLINE: PEDIATRIC UROLOGY SUBJECTIVE: Patient is a 3 -year-old boy with a lumbosacral lipomeningocele being followed by Pediatric Urology without any intervention based on a normal urinary pattern to date. He has been on toilet training for the last few months and he does demonstrate some volitional voiding as well as volitional bowel movements and he is still learning control of both. Mother comes in today noting that he is able to start his voiding on the toilet but stops a little bit prematurely and when he is done he does his pull-up of his diapers and within 5 or 10 minutes he empties the rest of his bladder into his diaper. She also notes that he has had no fevers, no urinary tract infections and no dysuria. She thinks he voids approximately every 3 to 4 hours and most of his bowel movements are in the diaper, although he does occasionally use a toilet for this. She also notes he does have some sensation of need to void so she tries to encourage him to void on a timed schedule. OBJECTIVE: Patient is a comfortable appearing young male in no apparent distress. ABDOMEN: His abdomen is soft, nontender and nondistended. GENITOURINARY: His penis is circumcised and he has bilaterally descended testes. LABORATORY: Urinalysis today was dip negative with a specific gravity of 0.01 and a pH of 6.5 (this was a voided specimen). RADIOLOGICAL STUDIES: The patient did not have any studies today. His renal ultrasound was done in January of 1999 and had normal upper tracts except for some minimal hydronephrosis (grade 1 on the left). A bladder scan done after his small voiding attempt identified 70 cc in the bladder. IMPRESSION: Lumbosacral lipomeningocele without any bladder dysfunction identified to date. He has had stable upper urinary tracts and no evidence of infections. His current habits with toilet training and inability to drain all into the toilet is not unusual for a child. PLAN: 1. I have instructed the mother to try double voiding and also to try to just have her son relax and not be in a keane to get off the toilet, and not to be concerned regarding his current incomplete emptying on the toilet with complete emptying in the diaper (by history). 2. We will re-evaluate his upper tract in 6 months with a renal ultrasound. 3. She should continue with her toilet training with strong encouragement with successful voiding. Please note that I discussed this assessment and plan with Dr. Dave Malik, who is in full agreement with the plan as outlined above. Robert Villa M.D. Dave Malik M.D., F.A.A.P. KEYSHA/neo Electronically signed by Interface, Oyster Picker In at 006 5:03 AM PSTInterface, Oyster Picker In - 10/26/2006 5:03 AM PSTCLINIC DATE: CLINIC NAME: [facility] DISCIPLINE: PEDIATRICS Ear pain: Pete is here for urologic evaluation in [facility]. He had significant right ear pain last night. He has had mild upper respiratory infection symptoms recently. On exam, the right tympanic membrane is bulging, pink, thickened, wrinkled, and irregular without light reflex. The left tympanic membrane is normal landmarks and mobility. ASSESSMENT: Right otitis media. PLAN: 1. Auralgan otic drops p.r.n. ear pain. 2. Amoxicillin 400 mg suspension two times a day times 10 days. 3. Return to primary physician for re-evaluation in two weeks. Robert Johnson M.D. Spiral Machine Operator, Pediatrics Developmental Crossword Puzzle Maker SHAYNE/julius Tdocumented in this encounter Plan of Treatment Not on filedocumented as of this encounter Visit Diagnoses Not on filedocumented in this encounter"
--- OUTSIDE RECORDS SUMMARY | ~2019-10-26 | XMS | Encounter Summary ---
Demographics + + + | Address | [address] | | | [place] [address] | + + + | Home Phone [...] [place] | | | | | [phone] | | + + + + + Care Team Providers + +------+ + | Care Manager Nicu Name | Role | Phone | + +------+ + | Dajuan Jerome MD | PCP | | + +------+ + Encounter Details +--------+ + + + + | Date | Type | Department | Care Team | Description | +--------+ + + + + | 11/17/ | Office | [facility] | Report, [...] as of this encounter Progress Notes Interface, Ball Winder In - 08/03/2006 3:07 AM PDTCLINIC DATE: 11/17/2001 CLINIC NAME: [facility] DISCIPLINE: SOCIAL WORK Pete, 5 years of age, comes to clinic today with his father, Yamil. 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 He ambulates independently, and responded to questions in the clinic setting in a pretty age-appropriate fashion. He continues to live in [place], [place] with his parents (mom's name is Nicky Duron), and his full sibling, Jared, who is 3 years of age, and 10-year-old Dave, who is a half-sibling. Dave has Attention Deficit Hyperactivity Disorder, and is on medication, Jared is reported to be developing typically thus far. Yamil is working outside of the home, driving cement truck locally, and Nicky is a telecom network manager at a [employer]. Yamil reports that Nicky typically works graveyard shift, so that the children's need for out of home daycare is limited, but when necessary, they have neighbors who are helpful to them. Medical coverage is through the [facility], and family care is the [facility]. Dr. Umm Kaufman continues as Pete's primary healthcare provider. 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 As a result, he did not have to catheterize himself at school; Yamil reports that happens before and after school attendance. It is Yamil's understanding that kindergarten is going well thus far for Pete, and he does seem to enjoy it. Pete reports that for fun in leisure time, he enjoys playing with toy cars and motorcycles. Yamil reports that Pete's favorite activity is wrestling with his brothers, which they do on a daily basis. He also is starting to be helpful around the house, and is responsible for picking up his toys, helping in the kitchen, helping with dishes, etcetera. There are no Social Work activities planned at this time, although Social Work remains very available as needed. 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 He returns today for routine follow-up. He has had no recent problems with urinary tract infections, change in gait or function, muscle wasting, etceteras. He keeps up with the other children in running and jumping. He very rarely complains of leg pain, which goes away with rubbing his legs. This is totally unchanged over the years, and is not progressive or more frequent in any way. If anything, it is less of a feature now than it might have been in the last couple of years, according to his father. On the examination today, Pete runs beautifully in the halls. He walks on his heels and toes. He wiggles his toes, better on the left, where he can completely cross the first over the second toe, and can only partially do this on the right. This is his baseline, according to my notes. Deep tendon reflexes are present at the knees, and trace at the ankles, barely perceptible on the right, as in the past. He has 90 degree extension on the right, and 85 degree extension on the left at the knee, and good ankle dorsiflexion bilaterally. His calves are symmetric by measurement. He has mildly high arches, but symmetric and unchanged. IMPRESSION: Lipomyelomeningocele; no active neurosurgical issues. He will continue routine follow-up in this clinic. I went over the signs and symptoms of tethering with his father again today. Js Deng M.D., Ph.D. [employer], Head, Division of Pediatric Neurosurgery NRS:[id number] signed by Interface, Ball Winder In at 08/03/2006 3:07 AM PDTInt flaquito, Ball Winder In - 08/03/2006 3:07 AM PDTCLINIC DATE: 11/17/2001 CLINIC NAME: [facility] DISCIPLINE: PEDIATRIC UROLOGY This dictation is being dictated as supplementation to the dictated note by the Urology Resident, Dr. Humberto Ortiz. 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 He is ambulatory. He is on intermittent catheterization. He has had no recent infections or other urologic complaints. He is wet between catheterizations. The patient was previously placed on oxybutynin, 5 mg twice per day. However, this was only taken for one month, as the patient apparently had insurance-related difficulties, and the family could not afford the medication. However, they presently have adequate insurance. The patient's physical findings are listed in the dictation by Dr. Ortiz. His urine today showed no signs of infection. An ultrasound today showed mild grade II left hydronephrosis. There was no hydroureter noted. This diminished significantly with catheterization. ASSESSMENT AND RECOMMENDATIONS: We discussed the importance of a regular catheterization schedule with the family. In addition, we refilled the prescription for oxybutynin, 5 mg twice per day. The patient was given enough for 30 days, with one year of refills. The patient was asked to return in six months for a repeat ultrasound. Dave Malik M.D., F.A.A.P. S:[id number] signed by Interface, Ball Winder In at 08/03/2006 3:07 AM PDTInt beverleycan, Ball Winder In - 08/03/2006 3:07 AM PDTCLINIC DATE: 11/17/2001 CLINIC NAME: [facility] DISCIPLINE: DEVELOPMENTAL PEDIATRICS/ATTENDING A comprehensive note is dictated by Kinjal Romero M.D., a senior Pediatric resident. This attending was present for preclinic chart review, critical aspects of history and physical exam, and post-clinic staffing, including decision making and planning. Total time 45 minutes. This 5-1/2-year-old boy was last seen for a full exam in May 2000. He has lipomyelomeningocele with no apparent neuromotor deficit in the extremities, but he does have neurogenic bowel and bladder. In the interim, he has been well. Special education and cognitive evaluation last February with Full Scale 89. Latex RAST never done. He is on clean intermittent catheterization q.4h., but is wet in-between. Ditropan has lapsed. Renal ultrasound today was quite normal. We suspect Urology is going to consider urodynamics, and a clinical trial of Ditropan. He is off all medications with regards to a bowel program. This is the age to start. We recommend FiberCare one teaspoon to one tablespoon daily, and sitting on the commode at a regular time, such as after supper nightly. PHYSICAL EXAMINATION: Weight 18.9 kg (25th percentile), height 112.5 cm (25th percentile), arm span 112.2 cm. Head circumference 51.5 cm (50th percentile). Blood pressure 112/65, pulse 123. GENERAL APPEARANCE: Well appearing male. HEENT: Normocephalic. Extraocular movements are symmetrical. There is a well-healed midline surgical scar over the lumbosacral region without hirsutism, drainage, discoloration or paresthesias; there is a lipomatous mass subcutaneously to the right of midline as before. In the lower extremities, there is full strength, deep tendon reflexes, Babinskis and ankle strength and toe grasp. He is also able to do full exercises of heel walking and toe walking symmetrically. DISCUSSION: Today he has a Latex RAST scheduled. He should continue on clean intermittent catheterization, but Urology will consider either further imaging and/or resumption of Ditropan. His bowel program has lapsed and he needs added fiber, and we have recommended FiberCare. We will see him again in one year. Robert Johnson M.D. Developmental Chief Investment Officer [facility]:[id number] signed by Interface, Ball Winder In at 08/03/2006 3:07 AM PDTInt erface, Ball Winder In - 08/03/2006 3:07 AM PDTCLINIC DATE: 11/17/2001 CLINIC NAME: [facility] DISCIPLINE: ORTHOPEDICS ADDENDUM: Standing scoliosis film shows no significant scoliosis, but he does have some asymmetry at the lumbosacral level, due to the lumbosacral spina bifida, and abnormalities on the right side at the SI joint. The pelvis is level and hips appear normal. Reyna Buckley M.D. FERNANDO/x95 [id number] signed by Interface, Ball Winder In at 08/03/2006 3:07 AM PDTInt erface, Ball Winder In - 08/03/2006 3:07 AM PDTCLINIC DATE: 11/17/2001 CLINIC NAME: [facility] DISCIPLINE: ORTHOPEDICS DIAGNOSIS: Lumbosacral lipomyelomeningocele. HISTORY: This is a 5-year, 73-lpstq-lgb male who has had no prior orthopedic issues. At his last visit, he was noted to have some apparent trunk asymmetry, which was thought to be positional. Dad does not think that this has worsened. On examination today, when standing his right iliac crest appears to be higher than the left. He does not have visible scoliosis nor does he have rib hump or flank prominence with forward bending. When he is supine or sitting, the asymmetry disappears. He has full symmetric range of motion of both hips without any evidence of hip dislocation or subluxation. Leg lengths appear to be equal. Gait is normal. PLAN: Standing AP scoliosis film. Reassess at next full clinic evaluation in six months. Reyna Buckley M.D. FERNANDO/x88 [id number] signed by Interface, Ball Winder In at 08/03/2006 3:07 AM PDTInt erface, Ball Winder In - 08/03/2006 3:07 AM PDTCLINIC DATE: 11/17/2001 CLINIC NAME: [facility] DISCIPLINE: PEDIATRIC UROLOGY Patient is a 5-year 29-katqx-exd male with a lipomeningocele, lumbosacral. It was repaired on January 1996. We have been following him for his neurogenic bladder. Since his last visit, he has been doing well without intercurrent urinary tract infections. He catheterizes q.4.h., with a #8-[place] catheter, getting moderate to large amounts of volumes. When they catheterized at his last visit, he was started on Ditropan. Unfortunately, secondary to insurance problems, this was only continued for less than one month before the family stopped giving it. The patient is continuously wet during the day. Occasionally, he will lose large volumes of urine, and at other times, dribbling urine. His testes are descended bilaterally, approximately 1.5 cubic cm each. His phallus is unremarkable and circumcised. No evidence of inguinal hernias. There is no evidence of perineal breakdown of the skin. Sphincter tone is lax, by inspection. STUDIES: Renal ultrasound today showed right kidney at 7.4 x 3.9 x 3.4 cm, for a total size of 52. Left kidney is 7.4 x 4.3 x 4.6, for a total volume of 77. There was left grade II hydronephrosis noted, that improved after catheterization. LABORATORY DATA: His urine today on a voided specimen showed a specific gravity of 1.005, 6.0, and dip negative. ASSESSMENT/PLAN: Patient is doing well without intercurrent urinary tract infections. He has developed a left grade II hydronephrosis that, for the most part, resolves after catheterization. He is not on Ditropan at the present time. We talked to the father about the importance of continuing Ditropan in this patient's case, and we prescribed him Ditropan 5 mg p.o. b.i.d., with refills for one year. We will see him back in approximately six months for another renal ultrasound, to see if his hydro resolved after starting the anticholinergic. Further interventions, such as a VCUG, will be considered if he fails to resolve this hydronephrosis on the left, or has a urinary tract infection. Humberto Ortiz M.D. Dave Malik M.D. Dr. Dave Malik M.D., staff urologist was present, and agrees with the above plan. Please see his addendum for additional information. Dave Malik M.D. ME:[id number] signed by Fredo, Ball Winder In at 08/03/2006 3:07 AM PDTUnc [facility] flaquito, Ball Winder In - 08/03/2006 3:07 AM PDT CLINIC DATE: 11/17/2001 CLINIC NAME: [facility] DISCIPLINE: PHYSICAL THERAPY Pete attended clinic today accompanied by his father. He is a boy of [age] years and ten months of age who has lumbosacral lipomyelomeningocele but with essentially intact neuromotor functioning to date. He has had subtle weakness described distally in his right lower extremity. His father reports that he continues to complain intermittently of pain in his lower extremities but this is apparently fleeting and not associated with any sustained adverse change in his function. In fact, the father reports that he has no concerns about Pete's motor functioning. Pete was awake, alert, and pleasantly cooperative for evaluation. Pete's musculoskeletal examination was unremarkable. His range of motion, alignment, and joint integrity are all intact and normal for age. Likewise, his neuromotor functioning is intact. His resting muscle tone is normal to passive movement, symmetric and equivalent in all four extremities. His deep tendon reflexes are available though difficult to elicit. I was unable to elicit deep tendon reflex in his right tendo-Achilles. His toes are downgoing bilaterally. He activates all musculature through both lower extremities and displays 5/5 strength to confrontational manual muscle testing. Subtle weakness distally in his right lower extremity is difficult to appreciate. He was able to walk through the whole cast of characters including walking on his heels, walking on his tiptoes, walking on the lateral borders of his feet, and he even attempted walking on the medial borders of his feet. In addition, he was able to perform giant steps, sequential hopping on either foot, sequential hopping on both feet, and even sequential hopping on each foot independently in a tiptoe configuration. When doing the latter, he did not display remarkable descent of his heel on the right side when compared to the left. He is able to run and jump and moves quite smoothly and safely through the entire gross motor developmental sequence up to these activities. He attempted skipping but had some difficulty organizing this well. I reviewed symptomatic tethering of the spinal cord with Pete and his father urging ongoing monitoring of his status and scheduling with the spina bifida program if any adverse changes are noted. Otherwise, I will plan to reevaluate Pete at his next scheduled full team appointment with the spina bifida program. Raul Zamora WF/X64 P [id number] signed by Interface, Ball Winder In at 08/03/2006 3:07 AM [facility] umented in this encounter Plan of Treatment Not on filedocumented as of this encounter Visit Diagnoses Not on filedocumented in this encounter"
--- OUTSIDE RECORDS SUMMARY | ~2019-10-26 | XMS | Encounter Summary ---
Demographics + + + | Address | [address] | | | [place] [address] | + + + | Home Phone [...] [place] | | | | | [address] | | + + + + + Care Team Providers + +------+ + | Care Sample Worker Name | Role | Phone | + +------+ + | Umm Kaufman MD | PCP | | + +------+ + Reason for Visit Consultation (Routine) + +--------+ + + + + | Status | Reason | Specialty | Diagnoses / | Referred By | Referred To | | | | | Procedures | Contact | Contact | + +--------+ + + + + | Canceled | | [facility] Spina | Diagnoses | Shae | Spina | | | | Bifida | Spina | Umm Salcedo MD | Bifida 707 | | | | | bifida | PEDS | [facility] | | | | | without | SPECIALISTS | Mailcode: | | | | | mention of | OF [place] | [facility] | | | | | hydrocephalu | [address] | [place], [place] | | | | | s, lumbar | [address] | [address] | | | | | region | L01 | Phone: | | | | | Neurogenic | [place], | [phone] | | | | | bladder, [place] | [place] [address] | Fax: | | | | | Procedures | Phone: | [phone] | | | | | MM | [phone] | | | | | | | Fax: | | | | | | | [phone] | | + +--------+ + + + + Encounter Details +--------+---------+ + + + | Date | Type | Department | Care Team | Description | +--------+---------+ + + + | 12/18/ | Office | [facility] at [facility] 7th | Cy Hutson | Lipomyelomeningocele | | 2010 | Visit | [address] | , PT [address] [facility] | ; Contracture of | | | | St Mailcode: [facility] | [address] | ankle and foot | | | | [facility] [place], [place] | [place] [address] | joint; Monoparesis | | | | [address] | | ([facility]); Tethering of | | | | [phone] | | spinal cord ([facility]); | | | | | | Leg Length | | | | | | Discrepancy, right; | | | | | | Scoliosis | +--------+---------+ + + + Social History [...] Progress Notes Cy Hutson Jr., PT - 12/18/2010 8:36 AM PSTFormatting of this note might be differen t from the original. PHYSICAL THERAPY EVALUATION [facility] SPINA BIFIDA PROGRAM DATE OF SERVICE: 12/18/2010 DATE: 1995 AGE: 14 years, 11 month, and 30 days PRIMARY CARE PHYSICIAN: Umm Kaufman MD REASON FOR VISIT: Return appointment: Interim evaluation re: [facility] His last clinic visit (LCV), for full-team Evaluation was 01/16/2010. BACKGROUND AND DIAGNOSES: Pete attended clinic today for evaluation. His father and his fiance accompanied him. My Last Clinic Visit (LCV) with him was 09/12/09. Pete is 14 years and 11 month of age. Tomorrow is his birthday. 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 At [...] foot strike. He declined to run." He reported much tripping, stumbling and falling. 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 MERARY AYALA ([facility]) Right ankle/foot orthopedic surgery 06/2009 DR. MERARY AYALA ([facility]) FAMILY AND PATIENT CONCERNS: Pete and his father report some improvement in his balance and gait and a much decreased incidence of falling. Father reports the presence of a Urinary Tract Infection (UTI) citing it as the first ever, as far as he can remember. REPORT OF PAIN: Pete reported right flank pain. This is consistent with the UTI and in f act has diminished as the medication has corrected his UTI. Upon inquiry there was no other pain reported and none evident. SERVICES: Pete is not currently involved in any Physical Therapy (PT) services. He remai ns enrolled at [facility] in [place] for orthopedic care and orthotic management. He has a follow-up appointment at [facility] on 11/04/10. GENERAL OBSERVATIONS AND BEHAVIOR: Pete was awake alert and pleasantly responsive. His p osture is still remarkable. for being shifted rightward over his lower body. He has a visibl e right lumbo-thoracic curve . He tolerates physical examination quite well and complies with requests for activity such as gait, and today, advanced dynamic upright activities. I was able to make an accurate asse ssment of his status. MUSCULOSKELETAL EXAMINATION: Pete has a paradoxical leg length discrepancy, that I have previously measured at 2.5 cm. The right leg is the shorter one. The discrepancy appeared to be in the tibial component. However, the right femur appears to be longer than the left. Most remarkable is the prominence of the pelvic obliquity and the accompanying scoliosis. The left side of the pelvis is elevated, the right side dropping to meet the shorter leg. Th ere is a rightward shift of his trunk in standing and walking. There is a slight but visible right thoracolumbar curve that is much less apparent when the pelvic obliquity is corrected , as happens when he sits. The midline scar on his back has migrated rightward, visibly off midline now. I do not appreciate a rotational component. Pete's right foot [...] lower limb. This is unchanged. What is remarkable today is that the proprioception and kine sthetic awareness of his right foot and ankle are improved. Clinically, no deficit is discer nible. These sensory functions remain are intact elsewhere. He has diminished but present ta ctile sensation in his right foot, but this is true over many years. Otherwise his neuromotor examination is unchanged: benign and normal for age. His resting muscle tone in his preserved musculature is normal throughout. His reflex integration is com plete. There are no long tract signs. He displays no abnormal posturing, or any abnormal or adventitious movements. His muscle activation in his preserved musculature is normal with is olated movement control appropriate for age. Aside from his monoplegia there is no focal or generalized weakness. Instead strength in these muscles is normal. There is no tremor or dys metria or any other cerebellar signs. POSTURAL CONTROL: All of Pete's postural control mechanisms are intact and his sense of balance is functionally effective and appropriate for age. Falling is no longer a concern. H e reveals this with his much improved gait. EQUIPMENT: Pete has fashioned a lift that he has inserted into his right shoe. This slig htly redresses the pelvic obliquity. He did not have his right Ankle Foot Orthosis (AFO) wit h him. Temporarily adding more lift redressed the pelvic obliquity more effectively and he r eported feeling more comfortable. GAIT: Pete's gait is now as it was previously, and as described in 01/23: essentially no rmal, except for the drop-off at end-stance on the right, reflecting the right ankle and miels t weakness. At that time he could run fast and well, and perform all manner of advanced sherri katelin upright activities except for those requiring the strong activation of his right ankle-f oot musculature. He was playing sports competitively with age peers. The placement of the right foot is again consistent. He readily displayed an array of adva nced dynamic upright activities including hopping, skipping, galloping and hopping on one fo ot. He can do the latter innumerable times on the left but can land on the right, and even w ith his eyes closed. He ascends and descends stairs, and did four full flights today. SKIN INTEGRITY: Pete has had a chronic wound under the metatarsal pads of his right foot . This remains as a darkened callus and os suspect sturdiness. By his own report his sensation is impaired in his right foot but is intact elsewhere. He reports that the jklpfn-wr-a-shoe sensation is much worse (and typically so) [...] devices; limitations walking outdoors and in the [facility]. Level III: Walks with assistive mobility devices; limitations walking outdoors and in the community. Level IV: Self-mobility with limitations; children use wheeled mobility. Level V: Self-mobility is severely limited even with the use of assistive technology On the [employer] Pete functions at Level I ASSESSMENT: Gabriel has enjoyed apparent jainism of his proprioceptive and kinesthetic a wareness in his right lower limb. His gait shows commensurate improvement. Pete is now ap parently stable with respect to his musculoskeletal system and neuromotor functioning. He has had an interval UTI The reader is referred to the report from this same day from Kiera Johnson MD, Developmental Rn Unit Manager and Heavy Threader of the Spina Bifida Program regarding disposition for further testing and follow-up RECOMMENDATIONS: I concurred with recommendation to evaluate Pete again in 2 to 3 months . I did not make specific recommendations for specific PT or related referral. I did recommend subsequent return PT Evaluation in the context of a full-team visit. In th at light Pete's status and the risk for adverse change related to the underlying diagnose s warrant the return evaluation. It was a pleasure seeing Pete and his father again today. I welcome questions related to this report. IDALMIS HUTSON, PT, PCS Physical Therapist Pediatric Clinical Specialist [facility] [phone] [email or web address] documented in th is encounter Plan of Treatment Not on filedocumented as of this encounter Procedures + +--------+ + + + | Procedure Name | Priori | Date/Time | Associated Diagnosis | Comments | | | ty | | | | + +--------+ + + + | [place] [facility] | Routin | 12/18/2010 | | | | EVALUATION | e | 3:49 PM | Lipomyelomeningocele | | | | | PST | Contracture of | | | | | | ankle and foot joint | | | | | | Monoparesis (HCC) | | | | | | Tethering of spinal | | | | | | cord (HCC) Leg | | | | | | Length Discrepancy, | | | | | | right Scoliosis | | + +--------+ + + + documented in this encounter Visit Diagnoses + + | Diagnosis | + + | 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
--- OUTSIDE RECORDS SUMMARY | ~2019-10-26 | XMS | Encounter Summary ---
Demographics + + + | Address | [address] | | | [place] [address] | + + + | Home Phone [...] [place] | | | | | [address] | | + + + + + Care Team Providers + +------+ + | Care Access Manager Name | Role | Phone | [...] as of this encounter Progress Notes Interface, Physical Therapist Technician In - 01/01/2007 6:[address] [facility] [address], [place], [place] [address] May 20, 2000 [facility] [address] [facility] [address] RE: Pete Oroczo MR# [id number] Dear Umm: We saw [age]- and [age]-bsab-hdtz-old Pete Orozco [facility] [...] brother. The family relocated back to the [facility] from [place] last year. PHYSICAL EXAMINATION: VITAL SIGNS: Weight [...] liaison, or coordination. Robert Johnson M.D. Developmental Vendor Analyst MM/x53 C: 05/26/2000/rafael documented in this encounter Plan of Treatment Not on filedocumented as of this encounter Visit Diagnoses Not on filedocumented in this encounter
--- OUTSIDE RECORDS SUMMARY | ~2019-10-26 | XMS | Encounter Summary ---
Demographics + + + | Address | [address] | | | [place] [address] | + + + | Home Phone | | + + + | Preferred Language | Unknown | + + + | Marital Status | Single | + + + | Anglican Affiliation | CHR | + + + [...] [place] | | | | | [address] | | + + + + + Care Team Providers + +------+ + | Care Internet Security Specialist Name | Role | Phone | + +------+ + PCP | Unavailable | + +------+ + Encounter Details +--------+ + + + + | Date | Type | Department | Care Team | Description | +--------+ + + + + | 01/08/ | Abstract | [facility] at [facility] 7th | Nereyda Solares PNP | | | 2005 | | Floor [address] | [address] | | | | | St Mailcode: [address] [place], | | | | | [facility] [place], [place] | [place] [address] | | | | | [address] | [phone] | | | | | [phone] | | | +--------+ + + + [...]
--- OUTSIDE RECORDS SUMMARY | ~2019-10-26 | XMS | Encounter Summary ---
Demographics + + + | Address | [address] | | | [place] [address] | + + + | Home Phone | | + + + | Preferred Language | Unknown | + + + | Marital Status | Single | + + + | Faith Affiliation | CHR | + + + [...] [place] | | | | | [address] | | + + + + + Care Team Providers + +------+ + | Care Telesales Agent Name | Role | Phone | + [...] as of this encounter Progress Notes Interface, Bouffant Curtain Machine Tender In - 10/26/2006 5:03 AM PSTCLINIC DATE: [...] M.D., F.A.A.P. KEYSHA/neo Electronically signed by Interface, Bouffant Curtain Machine Tender In at 006 5:03 AM PSTInterface, Bouffant Curtain Machine Tender In - 10/26/2006 5:03 AM PSTCLINIC DATE: [...] re-evaluation in two weeks. Robert Johnson M.D. Field Court Researcher, Pediatrics Developmental Quality Control Coordinator [email or web address] Tdocumented in this encounter Plan of Treatment Not on filedocumented as of this encounter Visit Diagnoses Not on filedocumented in this encounter"
--- OUTSIDE RECORDS SUMMARY | ~2019-10-26 | XMS | Encounter Summary ---
Demographics + + + | Address | [address] | | | [place] [address] | + + + | Home Phone [...] Author | [facility] | + + + | Organization | [facility] | + + + | Address | Unknown | + + + | Phone | Unavailable | + + + Support + + + + + | Name | Relationship | Address | Phone | + + + + + | Sarahi Orozco | ECON | [address] | | | | | [place] | | | | | [address] | | + + + + + Care Team Providers + +------+ + | Care Compliance Program Manager Name | Role | Phone | [...] | hydrocephalu | [address] | [place], [place] | | | | | s, lumbar | [address] | [address] | | | | | region | [address] | Phone: | | | | | Procedures | [place], | [phone] | | | | | [place] EST | [place] [address] | Fax: | | | | | PATIENT | Phone: | [phone] | | | | | LEVEL V [place] | [phone] | | | | | | PHYS THERAPY | Fax: | | | | | | EVALUATION | [phone] | | | | | | [place] | | | | | | | OCCUPATIONAL | | | | | | | THERAPY | | | | | | | EVALUATION | | | | | | | [place] | | | | | | | [...] + + | 04/14/ | Office | [facility] | Cy Hutson | Lipomyelomeningocele | | 2011 | Visit | Floor [address] | , PT [address] [facility] | ; Monoparesis (HCC); | | | | St Mailcode: [facility] | [address] | Scoliosis; | | | | [facility], [place] | [place] [address] | Contracture of ankle | | | | [address] | | and foot joint; | | | | [phone] | | Abnormal gait; Pain | | [...] t from the original. PHYSICAL THERAPY EVALUATION [facility] SPINA BIFIDA PROGRAM DATE OF SERVICE: 04/14/2012 [...] corrective surgery on the right foot, at [facility]. PREVIOUSLY: At his right foot Pete had [...] complex orthopedic surgery 10/26/07 DR. MERARY AYALA ([facility]) Right ankle/foot orthopedic surgery 06/2009 DR. MERARY AYALA ([facility]) Cystoscopy and bladder augmentation (ileocystoplasty with [...] (PT) services. He remai ns enrolled at [facility] in [place] for orthopedic care and orthotic management. GENERAL [...] me and she directed Pete to the [facility] Emergency Department., calling ahead to apprise [...] is intact elsewhere. He reports that the wxhzri-al-m-shoe sensation is much worse (and typically so) [...] PT, PCS Physical Therapist Pediatric Clinical Specialist [facility] [phone] [email or web address] documented in this encounter Plan of Treatment Not on filedocumented as of this encounter Procedures + +--------+ + + + | Procedure Name | Priori | Date/Time | Associated Diagnosis | Comments | | | ty | | | | + +--------+ + + + | [place] PHYS [facility]AP[facility] | Routin | 04/14/2012 | [...]
--- OUTSIDE RECORDS SUMMARY | ~2019-10-26 | XMS | Encounter Summary ---
Demographics + + + | Address | [address] | | | [place] [address] | + + + | Home Phone [...] [place] | | | | | [address] | | + + + + + Care Team Providers + +------+ + | Care Stitch Cleaner Name | Role | Phone | [...] | | | 2005 | Registratio | [facility] | MD Jos [address] | | | [address] | [address] Mailcode: [address] | Nasir [place], | | | | | [place], [place] | [place] [address] | | | | | [address] | [phone] | | | | | [phone] | | | +--------+ + + + [...]
--- OUTSIDE RECORDS SUMMARY | ~2019-10-26 | XMS | Encounter Summary ---
Demographics + + + | Address | [address] | | | [place] [address] | + + + | Home Phone [...] [place] | | | | | [address] | | + + + + + Care Team Providers + +------+ + | Care Lacquer Shader Name | Role | Phone | + [...] Pharmacy | | | | | | [address] | | | | | | [address] [place], [place] | | | | | | [address] | | | | | | [phone] | | | +--------+ + + + [...]
--- OUTSIDE RECORDS SUMMARY | ~2019-10-26 | XMS | Encounter Summary ---
Demographics + + + | Address | [address] | | | [place] [address] | + + + | Home Phone [...] [place] | | | | | [address] | | + + + + + Care Team Providers + +------+ + | Care Policy Specialist Name | Role | Phone | [...] | | | | mention of | [place], [place] | | | | | | hydrocephalu | [address] | | | | | | s, lumbar | Phone: | | | | | | region | [phone] | | | | | | Neurogenic | Fax: | | | | | | bladder, NOS | [phone] | | | | | | Neurogenic [...] | | 2010 | Visit | at [facility] [address] | RN,RUBENS | (Primary Dx) | | | | [place] Mailcode: | | | | | | [address] | | | | | | [place], [place] | | | | | | [address] | | | | | | [phone] | | | +--------+---------+ + + + [...] of this encounter Progress Notes Laurel Leal RN,SEWING MACHINES SALESPERSON - 07/28/2011 2:13 PM PDT Pete Orozco [...] complex orthopedic surgery 10/26/07 DR. MERARY AYALA ([facility]) Right ankle/foot orthopedic surgery 06/2009 DR. MERARY AYALA ([facility]) Cystoscopy and bladder augmentation (ileocystoplasty with [...]
--- OUTSIDE RECORDS SUMMARY | ~2019-10-26 | XMS | Encounter Summary ---
Demographics + + + | Address | [address] | | | [place] [address] | + + + | Home Phone [...] [place] | | | | | [address] | | + + + + + Care Team Providers + +------+ + | Care Upper Leather Sorter Name | Role | Phone | + +------+ + | Umm Kaufman MD | PCP | | + +------+ + Encounter Details +--------+ + + + + | Date | Type | Department | Care Team | Description | +--------+ + + + + | 01/13/ | Keno Writer | [facility] at [facility] 7th | Shiraz Segal, | Lipomyelomeningocele | | 2012 | | Floor [address] | [address] | (Primary Dx); | | | | St Mailcode: [facility] | [place], [place] | Neurogenic bladder, | | | | [facility] [place], [place] | [address] | NOS; Neurogenic | | | | [address] | [phone] | bowel | | | | [phone] | | | +--------+ + + + [...]
--- OUTSIDE RECORDS SUMMARY | ~2019-10-26 | XMS | Encounter Summary ---
Demographics + + + | Address | [address] | | | [place] [address] | + + + | Home Phone [...] [place] | | | | | [address] | | + + + + + Care Team Providers + +------+ + | Care Education Reporter Name | Role | Phone | + [...] | 12/18/ | Office | [facility] at [facility] 7th | Robert Johnson MD | Lipomyelomeningocele | | 2010 | Visit | Floor [address] | [address] | ; Neurogenic | | | | St Mailcode: [facility] | [place], [place] | bladder, NOS; | | | | [facility] [place] | [address] | Neurogenic bowel; | | | | [address] | [phone] | Scoliosis; Leg | | | | [phone] | | Length Discrepancy, | | | [...] PCP hereafter. -Continue Orthopedics as per Dr. Cantrell at [facility]. Foot surgery pending. -If nothing is needed [...] spinal cord tethering. Primary Provider: Umm Kaufman ([place], [place]) History of Present Illness: Pete still [...] wears an AFO, new ly constructed at [facility]. Anticipated right foot surgery with Dr. Cantrell to help alleviate pressure sores on plantar surface of right foot under 1st metatarsal head. Neurogenic Bladder: Urodynamics last October. Showed poor bladder compliance, highly trabe culated, did not leak until greater than 40 cm water pressure. He does his own clean intermi ttent catheterizations 5 times per day (has been in charge of self-catheterization since [facility] ). Anticholinergic was prescribed and now he [...] with his b rother and father in [place], [place] for approximately 1 year. School: He is [...] memory scores ranging from 72 to 86, [place] in 2005 at school showed processing speed [...] and reviewed with Dr. Robert Johnson, Developmental Chargemaster Specialist, wh o agrees with the above assessment [...]
--- OUTSIDE RECORDS SUMMARY | ~2019-10-26 | XMS | Encounter Summary ---
Demographics + + + | Address | [address] | | | [place] [address] | + + + | Home Phone [...] [place] | | | | | [address] | | + + + + + Care Team Providers + +------+ + | Care Job Placement Specialist Name | Role | Phone | [...] | Procedures | [address] | [place], [place] | | | | | [place] ESTAB | [address] | [address] | | | | | PATIENT | [address] | Phone: | | | | | LEVEL 5 MM, | [place], | [phone] | | | | | [place] | [place] [address] | Fax: | | | | | | Phone: | [phone] | | | | | | [phone] | | | | | | | Fax: | | | | | | | [phone] | | +--------+--------+ + + + + Encounter Details +--------+---------+ + + + | Date | Type | Department | Care Team | Description | +--------+---------+ + + + | 04/07/ | Office | [facility] at [facility] | Shani Johnson MD | Lipomyelomeningocele | | 2010 | Visit | Floor [address] | [address] | ; Tethering of | | | | St Mailcode: [facility] | [place], [place] | spinal cord (HCC); | | | | [facility], [place] | [address] | Abnormal gait; | | | | [address] | [phone] | Neurogenic bladder, | | | | [phone] | | NOS; History of | | [...] Provider: Umm Kaufman MD, Pediatric Specialist of [address], [place], [place] [address] HPI: We have seen Pete in followup [...] followed closely by Dr Ion Cantrell, at [facility] in [place]. Six weeks ago, he had surge ry [...] placement of bladder au gmentation using the ddmap.comofah ball. 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 Neurological: Phone Operator nial nerves intact. In the upper extremities, [...] 5/5 with hamstrings and quadriceps bilaterall y. [id number] IMPRESSIONS: Lipomyelomeningocele [741.93] Tethering of spinal cord [...]
--- OUTSIDE RECORDS SUMMARY | ~2019-10-26 | XMS | Encounter Summary ---
Demographics + + + | Address | [address] | | | [place] [address] | + + + | Home Phone [...] [place] | | | | | [address] | | + + + + + Care Team Providers + +------+ + | Care Supervisor Scrap Preparation Name | Role | Phone | + [...] as of this encounter Progress Notes Interface, Biological Technician In - 07/15/2005 5:02 AM PDT [id number] 07/02/2005 07/02/2005 [id number] [facility] DATE: 07/02/2005 CLINIC NAME: [...] in a home his family owns in [place], [place], which is near [place]. He lives with his mother, father, brother, Dave, who is 14 and brother, Jared, who is 7 years old. Pete's father reports that Pete plays well and is good friends with Jared. Pete's father works as a concrete mixer truck driver. Pete's mother works in an adult foster assisted. Pete completed the 3rd grade this past year and will be entering the 4th grade this coming year. He is on an IEP at school and gets extra help in the resource room at school. Pete's family recently moved to their new home in [place] from [place]. The move took place because Pete's father found a new job in [place]. Pete is covered by the [facility]. Pete's parents applied for SSI benefits for him and he was denied due to insufficient impairment. Pete's father explained that he plans to seek the services of an embalmer/funeral director to appeal this decision, but has had difficulty in finding one that will assist with disability cases for children. The family was provided with a brochure for SSI today, a number for their local [employer], which may be able to provide them a referral to an appropriate embalmer/funeral director and the phone number for their local Developmental Disabilities office. No other social work needs were identified at this time, however, social work remains available to the family as needed. Please see all other reports for this date. Dea Ng [facility] Tin Pot Operator YARA/yara P cc: Electronically signed by Dea Ng 07-14-2005 10:25:12 AM documented i n this encounter Plan of Treatment Not on filedocumented as of this encounter Visit Diagnoses Not on filedocumented in this encounter"
--- OUTSIDE RECORDS SUMMARY | ~2019-10-26 | XMS | Encounter Summary ---
Demographics + + + | Address | [address] | | | [place] [address] | + + + | Home Phone [...] [place] | | | | | [address] | | + + + + + Care Team Providers + +------+ + | Care Government Clerk Name | Role | Phone | [...] as of this encounter Progress Notes Interface, Tape Cutter In - 07/16/2005 5:02 AM PDT [id number] [facility] Date: 07/02/2005 Clinic Name: [facility] PEDI[facility]OLOG[facility] History of Present Illness: Gabriel is a 9-year-old male with a history of lumbosacral lipomyelomeningocele. He has been followed for his neurogenic bladder and was last seen in February 2004. He currently catheterizes with a 10-Vatican Citizen catheter every 4 hours with volumes up to 200 mL at a time. He has not had any problems with urinary tract infections in the past year. He leaks occasionally in between catheterization when he does not stick to a strict regimen of every 4 hours, and often when he wakes up, he will be wet given the fact he does not catheterize at night. This does require him to wear a diaper; however, leakage does not significantly cause any rashes or perineal breakdown. He has had no overt problems with constipation and has been taking the Ditropan 5 mg 3 times a day for the past year. Objective: General: He is a well-developed, healthy-appearing young man in no apparent distress. Abdomen: Soft and nontender. His colon is palpable in the left lower quadrant. Bladder is nonpalpable. He has no overt surgical scars. Extremities: Warm and well perfused. Genitourinary: Circumcised phallus. Normal glans. Normal meatus. Normal shaft. Bilateral distended testes with no evidence of hernia, hydrocele, or varicocele. Diagnostic Data: Radiographic studies and renal ultrasound today demonstrate right kidney 7.7 x 3.9 x 4.3 cm for a volume of 67 mL. The left kidney 7.4 x 3.7 x 4 cm for a volume of 58 mL. When the bladder is full to 200 mL, he has a mild grade 1 hydronephrosis on the left. Once the bladder is empty, the hydronephrosis resolves. Assessment: Stable neurogenic bladder. Reasonably dry on clean intermittent catheterization with a 10-V[place] Citizen catheter in conjunction with anticholinergic Ditropan 5 mg t.i.d. We did discuss if he has further wetness episodes or they are unhappy with his current status and diapers that we should pursue a urodynamic evaluation prior to any discussion of surgical options. The father and Gabriel both understand this option; however, they would like to think about it. We will then see him back in 1 year with a renal ultrasound and clinical followup. Shanna Valenzuela M.D. [facility] / [id number] / [id number] / [id number] / [id number] Electronically signed by Shanna Valenzuela 07-15-2005 02:55:07 PM documented i n this encounter Plan of Treatment Not on filedocumented as of this encounter Visit Diagnoses Not on filedocumented in this encounter"
--- OUTSIDE RECORDS SUMMARY | ~2019-10-26 | XMS | Encounter Summary ---
Demographics + + + | Address | [address] | | | [place] [address] | + + + | Home Phone [...] [place] | | | | | [address] | | + + + + + Care Team Providers + +------+ + | Care Resource Agent Name | Role | Phone | + +------+ + PCP | Unavailable | + +------+ + Encounter Details +--------+ + + + + | Date | Type | Department | Care Team | Description | +--------+ + + + + | 05/12/ | Letter-Zaragoza | | Letters, Other | Letters | | 2003 | scribed | | | | +--------+ [...] as of this encounter Progress Notes Interface, Tung Nut Grower In - 06/09/2006 1:03 AM [facility] [place] [address], [place] [address] or May 12, 2003 Robert Johnson M.D. [facility] Spina Bifida Clinic RE: ADAMA OROZCO MR #: [id number] Dear Robert: I had the pleasure of seeing Adama Orozco and his aunt today in Pediatric Neurosurgery Clinic. Unfortunately, his father was not able to accompany him and his aunt knows very little of Adama's medical history. Therefore, most of my interview was performed with Adama who is not a very accurate historian. 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 At that time he was noted to have progressive deformities of the right foot accompanying with leg pain. Since that time, Adama says that the preoperative back and leg pain has largely resolved. However, he still has some residual pain in the medial aspect of the right calf. He states this occurs approximately once a week and is relieved by Tylenol. Otherwise, he has noted no changes in his baseline bowel and bladder function and has had no progression of his right foot weakness. On exam, Adama is awake, alert, and interactive. He continues to have 5/5 strength in the upper extremities. In the lower extremities, he has some weakness in the EHL, anterior tibialis, and gastroc on the right side compared to the left. He continues to have a slight difficulty with heel and toe walking on the right side compared to the left. He has curling of the right toes and high arching on the right. When he ambulates, he tends to walk on the lateral aspect of the right foot. This is consistent with his preoperative evaluation. His lumbar incision is well healed and flat. I am unable to obtain any significant history from either Adama or his aunt today in the absence of his father. Clinically, Adama appeared stable with no further progression of his left lower extremity weakness. His back pain has also resolved. I would like to continue to follow him regularly in the Spina Bifida Clinic. Thank you again for allowing us to participate in his care. Sincerely, Soha Nettles M.D. Senior Hr Manager, Pediatric Neurosurgery [place] / [id number] / [id number] / [id number] / Tdocumented in this encounter Plan of Treatment Not on filedocumented as of this encounter Visit Diagnoses Not on filedocumented in this encounter"
--- OUTSIDE RECORDS SUMMARY | ~2019-10-26 | XMS | Encounter Summary ---
Demographics + + + | Address | [address] | | | [place] [address] | + + + | Home Phone [...] [place] | | | | | [address] | | + + + + + Care Team Providers + +------+ + | Care Biscuit Machine Operator Name | Role | Phone | + +------+ + | Dajuan Jerome MD | PCP | | + +------+ + Encounter Details +--------+ + + + + | Date | Type | Department | Care Team | Description | +--------+ + + + + | 10/03/ | Hospital | Radiology at [facility] | | | | 2009 | Encounter | [address] [facility] | | | | | | Mailcode: [address] | | | | | | [place] | | | | | | [place], [place] | | | | | | [address] | | | | | | [phone] | | | +--------+ + + + [...] + + | [facility] | Urgent | 10/03/2010 | | Results for this | | ENTIRE 36 1 VIEW | | 9:26 AM | Lipomyelomeningocele | procedure are in the | | | | PST | Scoliosis Leg | results section. | | | | | Length Discrepancy, | | | | | | right | | + +--------+ + + + [...] + + | Performing | Address | City/State[facility] | Phone Number | | Organization | | | | + +---------+ + + | [facility] | | | | | RADIOLOGY [...] (acquired) | + + documented in this encounter
--- OUTSIDE RECORDS SUMMARY | ~2019-10-26 | XMS | Encounter Summary ---
Demographics + + + | Address | [address] | | | [place] [address] | + + + | Home Phone [...] [place] | | | | | [address] | | + + + + + Care Team Providers + +------+ + | Care Spindle Sander Name | Role | Phone | + [...] | | | bifida | [place] | [facility] | | | | | without | COUNTY | Mailcode: | | | | | mention of | HEALTH DEPT | [facility] | | | | | hydrocephalu | [address] [place] [address] | [place], [place] | | | | | s, lumbar | [place], | [address] | | | | | region | [place] [address] | Phone: | | | | | Neurogenic | Phone: | [phone] | | | | | bladder, NOS | [phone] | Fax: | | | | | Procedures | Fax: | [phone] | | | | | [place] | [phone] | | | | | | US,RETROPERI [...] | 05/03/ | Office | [facility] at [facility] | Anita Lopez, | Spina Bifida without | | 2007 | Visit | Floor [address] | PNP [address] | Mention of | | | | St Mailcode: [facility] | [address] | Hydrocephalus, | | | | [facility], [place] | [place], [place] | Lumbar Region; | | | | [address] | [address] | Neurogenic Bladder, | | | | [phone] | [phone] | NOS; Neurogenic | | | | | | Bowel | +--------+---------+ + + + Social History [...] as of this encounter Progress Notes Anita Lopez - 05/03/2008 4:09 PM PDTFormatting of this note might be different from t mercy original. Spina Bifida Clinic Urology Ambulatory Treatment Record Pete Orozco is here today for routine urologic follow-up. At his last visit, he was cat dominguez once per day and voiding inbetween and not taking his Ditropan. He is now cathing himse lf about 4 times per day which is a huge improvement. He is scheduled to take Ditropan TID b ut is "bev" if he gets it onces per day. History: Age: 12 years Level of Lesion: lumbosacral lipomyelomeningocele Ambulatory Status: Full Catheterization Program: using 10 fr catheteter 4 times/day. He tried a 12 fr i n clinic had discomfort Urinary Infections: None in over 3 years. Continence: Leaks inbetween caths day and night Bowel Program: daily soft bowel movements either in the toilet or his pullup as he has no sensation. He is on Miralax at hs but will not sit on the toilet regularly. He does not mind having accidents Hospitalizations: None since last being seen Surgeries: ACCOUNT SUPPORT MANAGER Shunt: no History of 2 spinal cord detethering Bladder: CIC via urethra, he is independent with CIC Bowel: none Other: Ortho surgeries Allergies Allergen Reactions Amoxicillin DELETE Current outpatient medications Medication Sig OXYBUTYNIN CHLORIDE 5 MG ORAL TAB 1 tablet TID Sodium Fluoride 0.25 (0.55) mg Oral CHEW None Entered Physical Exam: Vitals: BP 109/72 HR 105 Wt 39.8 kg Abdomen: soft, non-tender : circumcised phallus, testes descended bilateral. No breakdown Back: well healed surgical scar. Lax anal tone Skin: no breakdown Radiology (include date): Urodynamics: None [facility]: No [facility] Renal/bladder ultrasound: 05/03/08: The kidneys are normal in location, morphology, and echogenicity. The right kidney measures 8.3 cm x 4.9 cm x 4.5 cm and has a volume of 97 cc. The left kidney measures 8.7 cm x 4.7 cm x 3.9 cm and has a volume of 83.1 cc. Renal volume s are normal for the patient's weight of 40 kg. No stones, cysts, or masses are seen. There is no hydronephrosis or hydroureter. The bladder is trabeculated, as previously noted. There is no evidence of debris. Pre-catheterization bladder volume measures 288 cc. There is no p ost catheterization residual. IMPRESSION: Normal renal ultrasound. Laboratory (include date): Assessment: 11 year old male with lipomyelomeningocele who is not taking his Ditropan regul manuel and but is doing better with CIC Plan: CIC at least 4 times per day, ideally every 4-5 hours, Ditropan 5 mg PO BID-TID. Had a long discussion with both Pete and his dad. Pete needs to be continue his CIC schedu le. He verbalized understanding and mom will make sure that he follows it. He needs to take his Ditropan on a regular schedule of TID. Alarm watch information was given. If no change, will repeat UDS Follow up in one year with [facility] Try 12 fr catheter again next year 4 :09 PM PDTdocumented in this encounter Plan of Treatment + +---------+--------+ + + | Name | Type | Priori | Associated Diagnoses | Order Schedule | | | | ty | | | + +---------+--------+ + + | [facility] | Imaging | Routin | Spina Bifida | Ordered: 05/03/2008 | | | | e | without Mention of | | | | | | Hydrocephalus, | | | | | | Lumbar Region | | | | | | Neurogenic Bladder, | | | | | | NOS Neurogenic | | | | | | Bowel | | + +---------+--------+ + + documented as of this encounter Visit Diagnoses + + | Diagnosis | + + | Spina bifida without mention of hydrocephalus, lumbar region | + + | Neurogenic bladder, NOS | + + | Neurogenic bowel | + + documented in this encounter
--- OUTSIDE RECORDS SUMMARY | ~2019-10-26 | XMS | Encounter Summary ---
Demographics + + + | Address | [address] | | | [place] [address] | + + + | Home Phone [...] [place] | | | | | [address] | | + + + + + Care Team Providers + +------+ + | Care Imaging Administrator Name | Role | Phone | + +------+ + | Dajuan Jerome MD | PCP | | + +------+ + Encounter Details +--------+ + + + + | Date | Type | Department | Care Team | Description | +--------+ + + + + | 09/22/ | Office | [facility] | Report, Outpatient | Progress Note | | 1996 | Visit-Trans | & Rehabilitation | Consultation | | | | cribed | [address] | | | | | | Loop Mailcode: | | | | | | [id number] Physician[address] | | | | | | [place], | | | | | | [place] [address] | | | | | | [phone] | | | +--------+ + + + [...] as of this encounter Progress Notes Interface, National Stormwater Leader In - 12/26/2006 3:10 AM [facility] CLINIC DATE: 09/22/97 CLINIC NAME: [facility] DISCIPLINE: SOCIAL WORK Pete is now [age] year, nine months of age. He is a youngster with spina bifida. He has been followed in our [facility] in [place] as well as in [place]. Pete is in the Early Intervention Program through the [facility]. He does attend a toddler group as well, and the teacher is Deedee Colby. He receives occupational therapy and physical therapy as well. Pete is one of two children of the parents, Nicky Duron and Yamil Orozco. The parents have had some marital difficulties and they have been recently. However, they are now back together and trying to work things out. They are not receiving any counseling. Mom is and due in December. Father works as a batch mixing truck driver for a local company and he is home in the evenings. Mom is unemployed. The parents do not qualify for SSI since the income is too high. They have the [employer], however, for Pete. Dr. Kaufman is the [facility]'s manager costing. The parents continue to have some concerns about how Pete will develop, but they are very pleased with how well he has done so far. They feel they were given a very pessimistic prognosis at the time of his , but now he is walking, seems alert, and generally doing much better than they or even the doctors had thought. They were quite pleased to report this today. There will be some issues regarding toileting, and Dr. Kaufman and Dr. Cuello are available to work with the parents around these issues. Pete seems to be doing nicely and the parents are working on some of the marital stresses and have not chosen to go for any professional counseling. They do benefit from the support given by the clinic staff as well as meeting other young parents who have children with special needs. We will continue to follow Pete in our clinic. Mariposa Kitchen LCSW Swaging Machine Adjuster EM:julius documented in this encounter Plan of Treatment Not on filedocumented as of this encounter Visit Diagnoses Not on filedocumented in this encounter"
--- OUTSIDE RECORDS SUMMARY | ~2019-10-26 | XMS | Encounter Summary ---
Demographics + + + | Address | [address] | | | [place] [address] | + + + | Home Phone [...] [place] | | | | | [address] | | + + + + + Care Team Providers + +------+ + | Care Concrete Laborer Name | Role | Phone | + [...] [address] | | | | | | [place], [place] | | | | | | [address] | | | | | | [phone] | | | +--------+ + + + [...] | + + + + + | [facility] | [address] | [place] [address] | | | SERVICES, CORE | [address] [...] | + + + + + | [facility] | [address] | [place] [address] | | | SERVICES, CORE | PARK [...] [facility] | [address] | [place] [address] | | | SERVICES, CORE | PARK [...] | + + + + + | [facility] | [address] [facility] | [place] [address] | | | SERVICES, CORE | ELISSA [...] | | | LABORATORY | | | [place] | | | SERVICES, | | | [...] | + + + + + | [facility] | [address] | [place] [address] | | | SERVICES, CORE | [address] | | | + + + + + documented in this encounter Visit Diagnoses + + | Diagnosis | + + | Pressure ulcer, unspecified site(707.00) Pressure ulcer, unspecified site | + + documented in this encounter"
--- OUTSIDE RECORDS SUMMARY | ~2019-10-26 | XMS | Encounter Summary ---
Demographics + + + | Address | [address] | | | [place] [address] | + + + | Home Phone [...] [place] | | | | | [address] | | + + + + + Care Team Providers + +------+ + | Care Team Assembly Line Machine Operator Name | Role | Phone [...] as of this encounter Progress Notes Interface, Sling Operator In - 06/14/2005 7:10 PM PDTClinic Date: 03/06/2004 Clinic Name Spina Bifida Clinic Discipline Neurosurgery Pete was seen for a neurosurgical evaluation in the spina bifida clinic at [facility] on 03/06/2004. Pete is an 8-year-old boy [...] Karoline MorrisN.P. Pediatric Nurse Practitioner [id number] A [id number] signed by Interface, Sling Operator In at 06/14/2005 7:10 PM [facility] umented in this encounter Plan of Treatment Not on filedocumented as of this encounter Visit Diagnoses Not on filedocumented in this encounter"
--- OUTSIDE RECORDS SUMMARY | ~2019-10-26 | XMS | Encounter Summary ---
Demographics + + + | Address | [address] | | | [place] [address] | + + + | Home Phone [...] [place] | | | | | [address] | | + + + + + Care Team Providers + +------+ + | Care Supervisor Ordnance Truck Installation Name | Role | Phone | + [...] Progress Notes Interface, Oyster Picker In - 06/14/2005 7:09 PM PDTClinic Date: 03/06/2004 Clinic Name Spina bifida Discipline Urology Subject: Pete is a 8-year 2-month-old male with a history of lumbosacral lipomyelomeningocele. He is followed for his neurogenic bladder and was last seen June 2003. Due to problems with insurance he has not been getting his Ditropan. He has been catheterized with a 10 Z[place]ian Catheter every four hours. He is leaking [...] in urology. Danny Dhaliwal M.D., F.A.A.P. Clinical Rubber Stamp Maker Pediatric Urology [id number] P [id number] cc: Morris Doshi [place]. P DTdocumented in this encounter Plan of Treatment Not on filedocumented as of this encounter Visit Diagnoses Not on filedocumented in this encounter"
--- OUTSIDE RECORDS SUMMARY | ~2019-10-26 | XMS | Encounter Summary ---
Demographics + + + | Address | [address] | | | [place] [address] | + + + | Home Phone [...] [place] | | | | | [address] | | + + + + + Care Team Providers + +------+ + | Care Ict Help Desk Officer Name | Role | Phone | + +------+ + | No Pcp Per Patient | PCP | Unavailable | + +------+ + Encounter Details +--------+ + + + + | Date | Type | Department | Care Team | Description | +--------+ + + + + | 03/13/ | Ancillary | LAB CORE [address] | | | | 2014 | Orders | [address] | | | | | | [place], [place] | | | | | | [address] | | | | | | [phone] | | | +--------+ + + + [...] + +--------+ + + + | CULTURE, WOUND DEEP | Routin | 03/13/2015 | Pressure ulcer, | Results for this | | W/ ANAEROBE | e | 8:20 AM | other site(707.09) | procedure are in the | | | | PDT | [ICD-9-CM] | results section. | + +--------+ + + + documented in this encounter Results CULTURE, WOUND DEEP W/ ANAEROBE (03/13/2015 8:20 AM PDT) + + + + + + | Component | Value | Ref Range | Performed | Pathologist | | | | | At | Signature | + + + + + + | CULTURE | Yemi granger (Twni) | | [facility] | | | RESULT | | | [facility] | | | | | | [place] | | + + + + + + + + | Specimen | + + | Swab - Foot - right | + + + + + | Narrative | Performed At | + + + | Culture Report: Rare Finegoldia magna Rare Skin kalin Gram | [facility] | | Stain: No squamous epithelial cells Rare polymorphonuclear cells | [facility] | | No organisms seen | [place] | + + + + + + + + | Performing | Address | City/State/Zipcode | Phone Number | | Organization | | | | + + + + + | [facility] | [address] | [place] [address] | | | [place] | | | | + + + + + documented in this encounter Visit Diagnoses + + | Diagnosis | + + | Pressure ulcer, other site(707.09) Pressure ulcer, other site | + + documented in this encounter"
--- OUTSIDE RECORDS SUMMARY | ~2019-10-26 | XMS | Encounter Summary ---
Demographics + + + | Address | [address] | | | [place] [address] | + + + | Home Phone [...] [place] | | | | | [address] | | + + + + + Care Team Providers + +------+ + | Care Electronics Technician Apprentice Name | Role | Phone | [...] Clinic | | | | | | [facility], [address] | | | | | | [place], [place] | | | | | | [address] | | | | | | [phone] | | | +--------+ + + + [...] as of this encounter Progress Notes Interface, Ophthalmology Assistant In - 01/22/2007 7:15 AM [facility] CLINIC DATE: 02/29/96 PEDIATRIC [...] bladder function. Shiraz Vance Jr., M.D., F.A.A.P. Corn Grower, Neurosurgery and Pediatrics PATRICK:juarez documented in this encounter Plan of Treatment Not on filedocumented as of this encounter Visit Diagnoses Not on filedocumented in this encounter"
--- OUTSIDE RECORDS SUMMARY | ~2019-10-26 | XMS | Encounter Summary ---
Demographics + + + | Address | [address] | | | [place] [address] | + + + | Home Phone [...] [place] | | | | | [address] | | + + + + + Care Team Providers + +------+ + | Care Procedure Writer Name | Role | Phone | + [...] as of this encounter Progress Notes Interface, Haul Cane Brakeman In - 09/25/2006 5:04 AM PSTCLINIC DATE: [...] program in May of 2000 using 8 Slovenian straight catheters every four hours. This has [...] catheterization every four hours with an 8 Slovenian catheter. 2) Add Ditropan, 4 cc PO [...] clinic for reevaluation. Danny Dhaliwal M.D. DBMatias/[id number] signed by Interface, Haul Cane Brakeman In at 09/25/2006 5:04 AM PSTdocume nted in this encounter Plan of Treatment Not on filedocumented as of this encounter Visit Diagnoses Not on filedocumented in this encounter"
--- OUTSIDE RECORDS SUMMARY | ~2019-10-26 | XMS | Encounter Summary ---
Demographics + + + | Address | [address] | | | [place] [address] | + + + | Home Phone [...] [place] | | | | | [address] | | + + + + + Care Team Providers + +------+ + | Care Proposal Review Analyst Name | Role | Phone | [...] as of this encounter Discharge Summaries Interface, Professor Of Genetics In - 05/30/2006 3:07 AM PDT [place] [address] [address] [facility] MEDICAL SUMMARY OF HOSPITALIZATION Med Rec No: [...] Clifton M.D. RS:[id number] cc: GEOFF NG MD [address] [place] [address] [address] [place] [address] [id number] signed by Interface, Professor Of Genetics In at 05/30/2006 3:07 AM PDTdoc umented in this encounter Plan of Treatment Not on filedocumented as of this encounter Visit Diagnoses Not on filedocumented in this encounter"
--- OUTSIDE RECORDS SUMMARY | ~2019-10-26 | XMS | Encounter Summary ---
Demographics + + + | Address | [address] | | | [place] [address] | + + + | Home Phone | | + + + | Preferred Language | Unknown | + + + | Marital Status | Single | + + + | Hinduism Affiliation | CHR | + + + [...] [place] | | | | | [address] | | + + + + + Care Team Providers + +------+ + | Care Information And Referral Director Name | Role | Phone | + +------+ + | Umm Kaufman MD | PCP | | + +------+ + Reason for Visit +--------+ + | Reason | Comments | +--------+ + | Preop | | +--------+ + Encounter Details +--------+ + + + + | Date | Type | Department | Care Team | Description | +--------+ + + + + | 06/23/ | Telephone | Urology -Pediatric | Justice Douglas, | Preop | | 2010 | | [address] | [address] [facility] | | | | | Mailcode: CDW6 | Cyril Maritza Ferreira | | | | | Anna | [place], [place] | | | | | [place], [place] | [address] | | | | | [address] | [phone] | | | | | [phone] | | | +--------+ + + + [...]
--- OUTSIDE RECORDS SUMMARY | ~2019-10-26 | XMS | Encounter Summary ---
Demographics + + + | Address | [address] | | | [place] [address] | + + + | Home Phone [...] [place] | | | | | [address] | | + + + + + Care Team Providers + +------+ + | Care Media Technician Name | Role | Phone | [...] as of this encounter Progress Notes Interface, Accountancy Professor In - 07/10/2006 3:09 AM PDTCLINIC DATE: [...] DATA: He underwent an MRI scan at [facility] on May 31, 2002. This reveals the [...] a spinal cord untethering. Soha Nettles M.D. Mail Processing Machine Operator of Pediatric Neurosurgery [place] / [place] [id number] / [id number] / [id number] / Tdocumented in this encounter Plan of Treatment Not on filedocumented as of this encounter Visit Diagnoses Not on filedocumented in this encounter"
--- OUTSIDE RECORDS SUMMARY | ~2019-10-26 | XMS | Encounter Summary ---
Demographics + + + | Address | [address] | | | [place] [address] | + + + | Home Phone [...] [place] | | | | | [address] | | + + + + + Care Team Providers + +------+ + | Care Panel Beater Name | Role | Phone | [...] | | [facility] Spina | Diagnoses | Betelmaski, | Cdr Spina | | | | Bifida | Spina | Dajuan Arguelles MD | Bifida [address] | | | | | bifida | [place] | [address] [facility] | | | | | without | COUNTY | Mailcode: | | | | | mention of | HEALTH DEPT | [facility] | | | | | hydrocephalu | [address] | [place], [place] | | | | | s, lumbar | [place], | [address] | | | | | region | [place] [address] | Phone: | | | | | Neurogenic | Phone: | [phone] | | | | | bladder, NOS | [phone] | Fax: | | | | | Procedures | Fax: | [phone] | | | | | SB SPECIAL | [phone] | | | | | | MM, EA | | | +--------+--------+ + + + + Encounter Details +--------+---------+ + + + | Date | Type | Department | Care Team | Description | +--------+---------+ + + + | 01/16/ | Office | [facility] 7[facility] | Cy Hutson | Lipomyelomeningocele | | 2009 | Visit | Floor [address] | ., PT [address] [facility] | ; Monoparesis (HCC); | | | | St Mailcode: [facility] | [address] | Contracture of | | | | [facility], [place] | [place] [address] | ankle and foot | | | | [address] | | joint; Scoliosis; | | | | [phone] | | Leg Length | | | [...] Progress Notes Cy Hutson Jr., PT - 01/16/2010 9:54 AM PSTFormatting of this note might be differen t from the original. 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 Pete's full medical and surgical history is [...] complex orthopedic surgery 10/26/07 DR. MERARY AYALA ([facility]) At his right foot Pete had developed [...] He derived good results from the procedure. FAMILY AND PATIENT CONCERNS: Pete reported no adverse interval changes. Mother corrobora rupert this. He is pleased with the new right Ankle Foot Orthosis (AFO). REPORT OF PAIN: Upon inquiry there was no pain reported and none evident. SERVICES: Pete is not currently involved in any Physical Therapy (PT) services. He remai adrianna enrolled at [facility] in [place] for orthopedic care and orthotic management. GENERAL OBSERVATIONS AND BEHAVIOR: Pete was awake alert and pleasantly responsive. He to lerates physical examination quite well and complies with requests for activity such as gait . I was able to make an accurate assessment of his status. MUSCULOSKELETAL EXAMINATION: Pete has a 2.5 cm [...] is intact elsewhere. He reports that the yjvzyb-no-i-shoe sensation is much worse (and typically so) with the left f oot, verifying the sensory impairment in the right foot and the consequent ongoing skin inte grity threat. DEVELOPMENTAL EXAMINATION: I did not conduct a [...] Pete functions at Level I EQUIPMENT: Pete has a new right Ankle Foot Orthosis (AFO) he received [facility] [place] after his cast removal last . He wears the orthotic for comfort and f or joint stability at his ankle and at his knee. He wears the orthotic all the time except w hen he sleeps. The AFO is made with a narrow profile above the ankle. There is some frogmout dominguez and consequent material fatigue. I demonstrated this to Pete and his mother. I sugge sted that they call [facility] in [place] to have this addressed. GAIT: Pete's gait is essentially normal, except for subtle drop-off at end-stance on the right. He runs fast and well, and can perform all manner of advanced dynamic upright activi ties except for those requiring the strong activation of his right ankle-foot musculature. Vikki arguelles plays sports competitively. INSTRUCTION: I reviewed symptomatic [...] for PT or related referral. I did urge return to [facility] in [place] because of the new visibility of the scoliosis and to have his AFO reviewed. . I did recommend return PT Evaluation in [...] welcome questions related to this report at [phone]. IDALMIS HUTSON PT, PCS Physical Therapist Pediatric Clinical Specialist [facility] [phone] [email or web address] documented in th is encounter Plan of Treatment + + +--------+ + + | Name | Type | Priori | Associated Diagnoses | Order Schedule | | | | ty | | | + + +--------+ + + | MD PHYS THERAPY | Procedures | Routin | | Ordered: 01/17/2010 | | EVALUATION | | e | Lipomyelomeningocele | | | | | | Monoparesis (HCC) | | | | | | Contracture of | | | | | | ankle and foot joint | | | | | | Scoliosis Leg | | | | | | Length Discrepancy, | | | | | | right | | + + +--------+ + + documented as of this encounter Visit Diagnoses + + | Diagnosis | + + | 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
--- OUTSIDE RECORDS SUMMARY | ~2019-10-26 | XMS | Clinical Summary ---
Demographics + + + | Address | [address] | | | [place] [address] | + + + | Home Phone [...] | Sarahi Orozco | ECON | [address] [facility] | | | | | [place] | | | | | [address] | | + + + + + Care Team Providers + +------+ + | Care High School Music Director Name | Role | Phone | + +------+ + | No Pcp Per Patient | PCP | Unavailable | + +------+ + Source Comments KELSEY is fully live on both [facility] and [facility] InPatient.Formerly [facility] Allergies + + + + [...] Lipomyelomeningocele- repaired , second | | untethering [id number] | + + + + + | [...] | | | + +--------+ +--------+-------+---------+--------+ | JOURNEYMAN POWERHOUSE OPERATOR MEDICAID | JOURNEYMAN POWERHOUSE OPERATOR | xxxxxxxx | | | | Medica [...] | 1970 | [phone] | [place] [address] | | | karolyn | | | 8 (Home) | | + +--------+ +--------+ + + | NICOLE OROZCO | Shrine | Parent | [birth year] | [address] | | | rs | | 1970 | [phone] | [place] [address] | | | | | | 8 (Home) | | + +--------+ +--------+ + + Advance Directives + + + + + | Type | Date Recorded | Patient | Explanation | | | | Move Coordinator | | + + + + + | Advance | | | | | Directives and | | | | | Living Will | | | | + + + + + | Power of | | | | | Parts Representative | | | | + + + [...]
--- OUTSIDE RECORDS SUMMARY | ~2019-10-26 | XMS | Encounter Summary ---
Demographics + + + | Address | [address] | | | [place] [address] | + + + | Home Phone [...] [place] | | | | | [address] | | + + + + + Care Team Providers + +------+ + | Care Tailercpa Name | Role | Phone | + [...] as of this encounter Progress Notes Interface, M1 Armor Crewman In - 05/30/2006 3:07 AM PDTCare Unit[facility] By: Test Date: 02/20/2003 Test Type: [...]
--- OUTSIDE RECORDS SUMMARY | ~2019-10-26 | XMS | Encounter Summary ---
Demographics + + + | Address | [address] | | | [place] [address] | + + + | Home Phone [...] [place] | | | | | [address] | | + + + + + Care Team Providers + +------+ + | Care Tube Building Machine Operator Name | Role | Phone [...] + + | 09/12/ | Documentati | [facility] 7th | Norrissavi, | Spina bifida | | 2008 | on | Floor [address] | Neli, CQ DEVELOPER [address] | | | | | St Mailcode: [facility] | [address] | | | | | [facility], [place] | Rd [place], [place] | | | | | [address] | [address] | | | | | [phone] | | | +--------+ + + + [...]
--- OUTSIDE RECORDS SUMMARY | ~2019-10-26 | XMS | Encounter Summary ---
Demographics + + + | Address | [address] | | | [place] [address] | + + + | Home Phone [...] [place] | | | | | [address] | | + + + + + Care Team Providers + +------+ + | Care Qa Automation Architect Name | Role | Phone | + +------+ + | Umm Kaufman MD | PCP | | + +------+ + Encounter Details +--------+ + + + + | Date | Type | Department | Care Team | Description | +--------+ + + + + | 12/18/ | Orders Only | [facility] | Lj Burgos, | | | 2010 | | Floor [address] | | | | | St Mailcode: [facility] | | | | | | [facility] [place] | | | | | | [address] | | | | | | [phone] | | | +--------+ + + + [...]
--- OUTSIDE RECORDS SUMMARY | ~2019-10-26 | XMS | Encounter Summary ---
Demographics + + + | Address | [address] | | | [place] [address] | + + + | Home Phone [...] [place] | | | | | [address] | | + + + + + Care Team Providers + +------+ + | Care Flight Test Data Acquisition Technician Name | Role | Phone | + +------+ + PCP | Unavailable | + +------+ + Encounter Details +--------+ + + + + | Date | Type | Department | Care Team | Description | +--------+ + + + + | 01/04/ | Results | [facility] at [facility] 7th | Marcio, | | | 2002 | Only | Floor [address] | MD Reyna [address] | | | | | St Mailcode: [facility] | [facility] | | | | | [facility] [place], [place] | [place], [place] | | | | | [address] | [address] | | | | | [phone] | | | +--------+ + + + [...] | X-RAY [facility] | Routin | 01/04/2003 | | Results for this | | ENTIRE 36 1 VIEW | e | 4:05 PM | | procedure are in the | | | | PST | | results section. | + +--------+ + + + documented in this encounter Results [facility] ENTIRE 36 1 VIEW (01/04/2003 4:05 PM PST) + + + + + + | Component | Value | Ref Range | Performed | Pathologist | | | | | At | Signature | + + + + + + | [facility] | Radiologist 1: JAQUELINE, | | | | | ENTIRE 36 | Naty REAGAN M.D.STANDING | | | | | 1 VIEW | THORACIC SPINE - AP: | | | | | | 01/04/2003 | | | | | | Dictated: 01/04/2003 | | | | | | FINDINGS: There is | | | | | | lumbosacral spine | | | | | | dysraphism. There is | | | | | | eightdegrees of mild | | | | | | thoracolumbar | | | | | | dextroscoliosis from T3 | | | | | | through L1. Thepatient | | | | | | is Risser stage 0. | | | | | | END OF IMPRESSION: | | | | + + + + + + + + | Specimen | + + | | + + + +---------+ + + | Performing | Address | City/State/Zipcode | Phone Number | | Organization | | | | + +---------+ + + | [facility] DEPARTMENT OF | | | | | RADIOLOGY | | | | + +---------+ + + documented in this encounter Visit Diagnoses Not on filedocumented in this encounter"
--- OUTSIDE RECORDS SUMMARY | ~2019-10-26 | XMS | Encounter Summary ---
Demographics + + + | Address | [address] | | | [place] [address] | + + + | Home Phone [...] [place] | | | | | [address] | | + + + + + Care Team Providers + +------+ + | Care Directional Drill Operator Name | Role | Phone | + +------+ + PCP | Unavailable | + +------+ + Encounter Details +--------+ + + + + | Date | Type | Department | Care Team | Description | +--------+ + + + + | 12/17/ | Office | [facility] | Note, [...] as of this encounter Progress Notes Interface, Club Waiter/Waitress In - 06/15/2005 12:04 AM PDT [id number] 12/17/2004 12/17/2004 [id number] MCKAY GALAN Clinic Date: 12/17/2004 Orthopedics Clinic Note NO DICTATION Mariana Najera/mls P [id number] cc: documented i n this encounter Plan of Treatment Not on filedocumented as of this encounter Visit Diagnoses Not on filedocumented in this encounter"
--- OUTSIDE RECORDS SUMMARY | ~2019-10-26 | XMS | Encounter Summary ---
Demographics + + + | Address | [address] | | | [place] [address] | + + + | Home Phone [...] [place] | | | | | [address] | | + + + + + Care Team Providers + +------+ + | Care Environmental Service Aide Name | Role | Phone | + [...] [place] | | | | | | [address] | | | +--------+ + + + [...]
--- OUTSIDE RECORDS SUMMARY | ~2019-10-26 | XMS | Encounter Summary ---
Demographics + + + | Address | [address] | | | [place] [address] | + + + | Home Phone | | + + + | Preferred Language | Unknown | + + + | Marital Status | Unknown | + + + | Baptist Affiliation | Unknown | + + + | Race | Unknown | + + + | Ethnic Group | Unknown | + + + Author + + + | Author | [facility] | | | and [place] | + + + | Organization | [facility] | | | and [place] [...] Team Providers + +------+ + | Care Aquatic Centre Manager Name | Role | Phone | [...] | | | | [address] | [place] [address] | | | | | [place], [place] | [phone] | | | | | [address] | | | | | | [phone] | | | +--------+ + + + [...]
--- OUTSIDE RECORDS SUMMARY | ~2019-10-26 | XMS | Encounter Summary ---
Demographics + + + | Address | [address] | | | [place] [address] | + + + | Home Phone [...] [place] | | | | | [address] | | + + + + + Care Team Providers + +------+ + | Care Applications Support Lead Name | Role | Phone | + [...] | | | | hydrocephalu | [address] | [place], [place] | | | | | s, lumbar | [place], | [address] | | | | | region | [place] [address] | Phone: | | | | | Neurogenic | Phone: | [phone] | | | | | bladder, NOS | [phone] | Fax: | | | | | Procedures | Fax: | [phone] | | | | | CO | [phone] | | | | | | US,RETROPERI | | | | | | | T, | | | | | | | B-SCAN/REAL | | | | | | | TIME,COMPLET | | | | | | | E CO | | | | | | [...] | 06/06/ | Office | [facility] at [facility] | Robert Johnson MD | Lipomyelomeningocele | | 2008 | Visit | Floor [address] | [address] | ; Neurogenic | | | | St Mailcode: [facility] | [place], [place] | Bladder, NOS; | | | | [facility], [place] | [address] | Neurogenic Bowel; | | | | [address] | [phone] | Pes Cavus, right; | | | | [phone] | | Leg Length | | | [...] Monoparesis [344.5A] Decubitus Ulcer of right foot [067.7] RECOMMENDATIONS: -Continue Clean Intermittent Catheterization (CIC) -Add [...] monito ring. Primary Provider: Dajuan Jerome M.D., [facility], [address], [place], [place] [address]. HPI: Things have been stable over the [...] diet. I also feel that over the retirement, he is a good candidate for cecostomy. [...] coordination are within average range for age. [place]: Pete provided much of his own history [...] percentile). Height 162.4 cm (60 percentile). B MD 40 percentile. Head circumference 55.0 cm (55 [...] DRAPER | [address] | [place], [place] | | | AKIL POINT OF CARE | [address] | [address] | | | TESTS | | | | + + + + + | [facility]-POINT OF CARE | [address] | [place], [place] | | | TESTS | [address] | [address] | | + + + + + [...]
--- OUTSIDE RECORDS SUMMARY | ~2019-10-26 | XMS | Encounter Summary ---
Demographics + + + | Address | [address] | | | [place] [address] | + + + | Home Phone [...] [place] | | | | | [address] | | + + + + + Care Team Providers + +------+ + | Care Executive Pilot Name | Role | Phone | + +------+ + PCP | Unavailable | + +------+ + Encounter Details +--------+ + + + + | Date | Type | Department | Care Team | Description | +--------+ + + + + | 07/02/ | Results | | Other, Faculty | | | 2006 | Only | | [phone] | | +--------+ + + + + [...]
--- OUTSIDE RECORDS SUMMARY | ~2019-10-26 | XMS | Encounter Summary ---
Demographics + + + | Address | [address] | | | [place] [address] | + + + | Home Phone [...] [place] | | | | | [address] | | + + + + + Care Team Providers + +------+ + | Care Assistant Coach Name | Role | Phone | [...] [address] | | | | | [address] | [address] | | | | | Loop Mailcode: | [place], [place] | | | | | [address] Physician's | [address] | | | | | [place], | [phone] | | | | | [place] [address] | | | | | | [phone] | | | +--------+ + + + [...] | | + +---------+ + + | [facility] DEPARTMENT OF | | | | | RADIOLOGY | | | | + +---------+ + + documented in this encounter Visit Diagnoses Not on filedocumented in this encounter"
--- OUTSIDE RECORDS SUMMARY | ~2019-10-26 | XMS | Encounter Summary ---
Demographics + + + | Address | [address] | | | [place] [address] | + + + | Home Phone [...] [place] | | | | | [address] | | + + + + + Care Team Providers + +------+ + | Care Cell Tender Name | Role | Phone | [...] | | 1995 | | [facility] [address] | | | | | | [address] | | | | | | Mailcode: OP34 [facility] | | | | | | [address] | | | | | | [facility] | | | | | | [place] [address] | | | | | | [phone] | | | +--------+ + + + [...] as of this encounter Progress Notes Interface, Vulcanizer Rubber Plate In - 01/31/2007 2:48 PM PDT [facility] [address], [place], [place] [address] August 18, 1996 UMM NG MD [address] [place] [address] RE:Pete Orozco MR#:[id number] Dear Umm: We saw [id number] Pete today in [facility] in [place] with Kaleb Cuello M.D. We last saw him July 13 in [place] at the [facility] to check out the reported weakness on the right side. This was an opportunity to meet with [facility], Public Health, and other community agents [...] of age. He will see us in [place] in October and return for full check [...] clarification, liaison, or coordination. Robert Johnson M.D. Elementary School Social Worker, Pediatrics SHAYNE /ever A cc: [facility] documented in this encounter Plan of Treatment Not on filedocumented as of this encounter Visit Diagnoses Not on filedocumented in this encounter
--- OUTSIDE RECORDS SUMMARY | ~2019-10-26 | XMS | Encounter Summary ---
Demographics + + + | Address | [address] | | | [place] [address] | + + + | Home Phone [...] [place] | | | | | [address] | | + + + + + Care Team Providers + +------+ + | Care Circulation Sales Representative Name | Role | Phone | + +------+ + | Dajuan Jerome MD | PCP | | + +------+ + Encounter Details +--------+ + + + + | Date | Type | Department | Care Team | Description | +--------+ + + + + | 07/24/ | Results | [facility] at [facility] 7th | Robert Johnson MD | | | 2005 | Only | Floor [address] | [address] | | | | | St Mailcode: [facility] | [place], [place] | | | | | [facility] [place], [place] | [address] | | | | | [address] | [phone] | | | | | [phone] | | | +--------+ + + + [...]
--- OUTSIDE RECORDS SUMMARY | ~2019-10-26 | XMS | Encounter Summary ---
Demographics + + + | Address | [address] | | | [place] [address] | + + + | Home Phone [...] [place] | | | | | [address] | | + + + + + Care Team Providers + +------+ + | Care Advertising Analyst Name | Role | Phone | + +------+ + PCP | Unavailable | + +------+ + Encounter Details +--------+ + + + + | Date | Type | Department | Care Team | Description | +--------+ + + + + | 07/02/ | Results | | Other, Faculty | | | 2006 | Only | | [phone] | | +--------+ + + + + [...]
--- OUTSIDE RECORDS SUMMARY | ~2019-10-26 | XMS | Encounter Summary ---
Demographics + + + | Address | [address] | | | [place] [address] | + + + | Home Phone [...] [place] | | | | | [address] | | + + + + + Care Team Providers + +------+ + | Care Final Inspector Shuttle Name | Role | Phone | + [...] + + + + | 07/28/ | Telephone | HOSPITAL CASE | [address] | Social work | | 2010 | | MANAGEMENT [address] | [address] | consultation | | | | [address] | [address] [place], [place] | | | | | [place], [place] | [address] | | | | | [address] | | | +--------+ + + + [...]
--- OUTSIDE RECORDS SUMMARY | ~2019-10-26 | XMS | Encounter Summary ---
Demographics + + + | Address | [address] | | | [place] [address] | + + + | Home Phone [...] [place] | | | | | [address] | | + + + + + Care Team Providers + +------+ + | Care Charger Operator Name | Role | Phone | [...] as of this encounter Progress Notes Interface, Animal Cytologist In - 06/14/2005 7:10 PM PDTClinic Date: 03/06/2004 Clinic Name Spina bifida Clinic Discipline Social Work Pete is 8-years and 6-qmyeli-qon. He returns to this clinic with his father, Yamil, and accompanied by his paternal grandmother, Yolie. Pete is followed for needs related to a repaired lumbosacral lipomyelomeningocele and mild orthopedic needs. He has a neurogenic bowel and bladder as well. He continues to live in [place] with his parents, Yamil and Nicky, and his older brother Dave and younger brother Jared. Please see all reports from this date. Currently Yamil is working as a bung driver. 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 His works as a care provider. She was not able to come today because of her work and also because of the need to provide supervision for the other two children, ages 13 and 6. This family has lived in [place] for a long time and due have friends and extended family. Yamil's brother also lives there and his parents have recently moved to the area. Primary care is with Dr. Marlyn Kaufman. Currently Pete is covered under the [place] [employer] through [employer]. At the moment the family income is too great for Pete to qualify for supplemental security income benefits and it is questionable if he would be considered disabled enough anyway to qualify. His family has had some difficulty maintaining [place] [employer] status because of some difficulty keeping up with the paper work in a timely way. Currently Pete does receive Pull-Ups and catheterization supplies that are delivered to the family and paid for through the [place] [employer]. Pete has a brace for one of his feet but this has been very uncomfortable and so he has not been wearing it recently. Pete is in the second grade at [employer] in [place]. He is considered a slow learning in the slow average range of cognitive abilities. He does have an IEP which includes the self catheterization that he does at school. However, he is also struggling academically and is described as being just at the beginning of the first grade level. A recent school meeting with the parents focused on whether he should go on to the third grade. His parents are not eager for him to remain in the one-two combination and so do want him to go on. However, they are concerned about his learning. This high school social science teacher will be evaluating his individual education plan with the idea of assisting the family to advocate for appropriate academic resources. Pete is described as being a really nice kid who is passive, gentle, and has an overall good attitude. He enjoys playing computer games and his father thinks he will be a computer isai as an adult. He seems to get on well with his brother on a whole. He also has his own friends. He enjoys riding his bike outside but he also enjoys playing computer games. I did have concerns about the school program for this child. However, it sounds like this small community with a fairly small elementary school, has been working with the family to provide the best program for this young man. Please see other discussion about other areas of concern. Laurel Kraft LCSW NLM/y13 P [id number] signed by Interface, Animal Cytologist In at 06/14/2005 7:10 PM PDTdoc umented in this encounter Plan of Treatment Not on filedocumented as of this encounter Visit Diagnoses Not on filedocumented in this encounter"
--- OUTSIDE RECORDS SUMMARY | ~2019-10-26 | XMS | Encounter Summary ---
Demographics + + + | Address | [address] | | | [place] [address] | + + + | Home Phone [...] [place] | | | | | [address] | | + + + + + Care Team Providers + +------+ + | Care Hand Surgeon Name | Role | Phone | + [...] | | Bifida | Neurogenic | Umm Matias MD | Bifida 707 | | | | | bladder, NOS | PEDS | [address] | | | | | Neurogenic | SPECIALISTS | Mailcode: | | | | | bowel | OF [place] | [facility] | | | | | Procedures | [address] | [place], [place] | | | | | DC ESTAB | [address] | [address] | | | | | PATIENT | [address] | Phone: | | | | | LEVEL 5 MM, | [place], | [phone] | | | | | [place] | [place] [address] | Fax: | | | | | | Phone: | [phone] | | | | | | [phone] | | | | | | | Fax: | | | | | | | [phone] | | +--------+--------+ + + + + Encounter Details +--------+---------+ + + + | Date | Type | Department | Care Team | Description | +--------+---------+ + + + | 04/07/ | Office | [facility] at [facility]th | Cy Hutson | Lipomyelomeningocele | | 2010 | Visit | Floor [address] | Jr., PT [address] | ; Contracture of | | | | St Mailcode: [facility] | [address] | ankle and foot | | | | [facility] [place] | [place], [place] [facility] | joint; Monoparesis | | | | [address] | | ([facility]); Abnormal gait | | | | [phone] | | | +--------+---------+ + + + [...] Progress Notes Cy Hutson Jr., PT - 04/07/2011 8:45 AM PDTFormatting of this note might be differen t from the original. PHYSICAL THERAPY EVALUATION [facility] SPINA BIFIDA PROGRAM DATE OF SERVICE: 04/07/2011 DATE: 1995 AGE: 15 year 3 month PRIMARY CARE PHYSICIAN: Umm Kaufman MD REASON FOR VISIT: Return special appointment: Interim evaluation re: follow-up from special visit. His last clinic visit (LCV) was 12/18/2010. BACKGROUND AND DIAGNOSES: Pete attended clinic today for evaluation. His father accompa nied him. My Last Clinic Visit (LCV) with him was 09/12/09. Pete is 15 years of age. 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 He has had corrective surgery on the right foot, at [facility]. He just had the hardware removed immediately preceding this appointment. PREVIOUSLY: At his right foot Pete had [...] of spinal cord 742.59BF Abnormal gait 781.2F History of migraine headaches V17.49DT Past Medical History Diagnosis Date Neurogenic bladder [...] right noted on exam-9-04 Lipomyelomeningocele Past Surgical History Procedure Date Pr release tethered spinal cord,lumbr 02/20/2003 First repair, release of lipomyelomeningocele 01/1996 Right ankle/foot orthopedic surgery 12/2004 DR. LUNA COTTRELL Right ankle/foot complex orthopedic surgery 10/26/07 DR. MERARY AYALA ([facility]) Right ankle/foot orthopedic surgery 06/2009 DR. MERARY AYALA ([facility]) FAMILY AND PATIENT CONCERNS: Pete and his father report resolution of the problems with his balance and gait, and a much decreased incidence of falling. REPORT OF PAIN: Upon inquiry there was no other pain reported and none evident. SERVICES: Pete is not currently involved in any Physical Therapy (PT) services. He davinaai adrianna enrolled at [facility] in [place] for orthopedic care and orthotic management. GENERAL OBSERVATIONS AND BEHAVIOR: Pete was awake alert and pleasantly responsive. His r ight foot is in a position of nice neutral correction but is sore from the hardware removal so he declined to bear weight on it, or to participate in strength testing. This was reasona ble. I did not pursue physical examination. I will not submit a charge for service. RECOMMENDATIONS: I did not make specific recommendations for specific PT or related referra l. I did recommend subsequent return PT Evaluation in the context of a full-team visit. In at light Pete's status and the risk for adverse change related to the underlying diagnose s warrant the return evaluation. It was a pleasure seeing Pete and his father again today. I welcome questions related to this report. IDALMIS HUTSON, PT, PCS Physical Therapist Pediatric Clinical Specialist [facility] [phone] [email or web address] documented in is encounter Plan of Treatment Not on filedocumented as of this encounter Visit Diagnoses + + | Diagnosis | + + | Lipomyelomeningocele Spina bifida without mention of hydrocephalus, lumbar region | + + | Contracture of ankle and foot joint | + + | Monoparesis (HCC) Unspecified monoplegia | + + | Abnormal gait Abnormality of gait | + + documented in this encounter
--- OUTSIDE RECORDS SUMMARY | ~2019-10-26 | XMS | Encounter Summary ---
Demographics + + + | Address | [address] | | | [place] [address] | + + + | Home Phone [...] [place] | | | | | [address] | | + + + + + Care Team Providers + +------+ + | Care Dinkey Engineer Name | Role | Phone | [...] as of this encounter Progress Notes Interface, Carpenter/Labor In - 06/14/2005 7:10 PM PDTClinic Date: 03/06/2004 Clinic Name Spina Bifida Clinic Discipline Pediatric Nurse Practitioner/Staffing Summary Pete is an 8-year-old male with medical history of lumbosacral lipomyelomeningocele. He returns for routine follow-up through [facility]'s spina bifida clinic in the company of his father, Yamil Orozco, and his grandmother. Chief Concern: Pete's father identifies his ongoing problems with his right foot and ankle as well as complaints of pain at his left knee as his chief concern for today's visit. Database Review/Healthcare Maintenance: Primary care continues with Dr. Kaufman in [place], [place]. Pete's last team evaluation was approximately [...] discontinued late last summer when the family's [place] [employer] coverage was lost due to an increase in their income. The increased income, however, did not provide health insurance. They have now requalified for the [place] [employer]. He has not had urinary [...] He is now a second grader at [employer] in [place]. It is a mixed first/second grade class. [...] Pete. Social: Pete continues to live in [place] with his parents and two brothers. One [...] right. Rapid alternating, sequential finger touching, and gryeoq-ciqp-nqetep are all performed well and smoothly. LUNGS: [...] time. Pete will be referred to Dr. Madhav Cobb, pediatric orthopedist for consideration of right [...] Pediatric Nurse Practitioner RCA/x34 A C: 03/13/2004 [facility] [id number] signed by Interface, Carpenter/Labor In at 06/14/2005 7:10 PM PDTdoc umented in this encounter Plan of Treatment Not on filedocumented as of this encounter Visit Diagnoses Not on filedocumented in this encounter"
--- OUTSIDE RECORDS SUMMARY | ~2019-10-26 | XMS | Encounter Summary ---
Demographics + + + | Address | [address] | | | [place] [address] | + + + | Home Phone [...] Author + + + | Author | [facility] | + + + | Organization | [facility] | + + + | Address | Unknown | + + + | Phone | Unavailable | + + + Support + + + + + | Name | Relationship | Address | Phone | + + + + + | Sarahi Orozco | ECON | [address] | | | | | [place] | | | | | [address] | | + + + + + Care Team Providers + +------+ + | Care Quote Clerk Name | Role | Phone | [...] | | [address] | [address] [facility] | | | | | Mailcode: CDW6 | [address] | | | | | [place] | [place], [place] | | | | | [place], [place] | [address] | | | | | [address] | [phone] | | | | | [phone] | | | +--------+ + + + [...]
--- OUTSIDE RECORDS SUMMARY | ~2019-10-26 | XMS | Encounter Summary ---
Demographics + + + | Address | [address] | | | [place] [address] | + + + | Home Phone [...] [place] | | | | | [address] | | + + + + + Care Team Providers + +------+ + | Care Lens Mold Setter Name | Role | Phone | [...] | Transcriptions | + + | Interface, Physical Medicine Specialist In - 11/05/2005 5:19 AM PST | | [id number] | | [phone] PAM Escobar | | | | Date: 12/18/2004 | | | | Attending Surgeon: Madhav Cobb M.D. | | | | Log Carrier Operator(s): Jessica Strange M.D. | | Juan Miguel [...] | | RJT / HS | | [phone] / [id number] / [id number] / | | | | | | | | | | | | Electronically signed by Madhav Cobb 01-30-2005 04:00:39 PM | + + documented in this encounter Visit Diagnoses Not on filedocumented in this encounter"
--- OUTSIDE RECORDS SUMMARY | ~2019-10-26 | XMS | Encounter Summary ---
Demographics + + + | Address | [address] | | | [place] [address] | + + + | Home Phone [...] [place] | | | | | [address] | | + + + + + Care Team Providers + +------+ + | Care Commercial Litigation Paralegal Name | Role | Phone | + +------+ + PCP | Unavailable | + +------+ + Encounter Details +--------+ + + + + | Date | Type | Department | Care Team | Description | +--------+ + + + + | 02/07/ | Results | | Other, Faculty | | | 1995 | Only | | [phone] | | +--------+ + + + + [...] | + +--------+ + + + | SEDATION IN MRI | Routin | 02/08/1996 | | Results for this | | | e | 11:05 AM | | procedure are in the | | | | PST | | results section. | + +--------+ + + + | MRI T-SPINE, UP/LOW, | Routin | 02/08/1996 | | Results for this | | 3 SEQ [facility] | e | 10:30 AM | | procedure are in the | | | | PST | | results section. | + +--------+ + + + | MRI L-SPINE, 3 SEQ, | Routin | 02/08/1996 | | Results for this | | [facility] | e | 10:30 AM | | procedure are in the | | | | PST | | results section. | + +--------+ + + + documented in this encounter Results SEDATION IN MRI (02/08/1996 11:05 AM PST) + + + + + + | Component | Value | Ref Range | Performed | Pathologist | | | | | At | Signature | + + + + + + | SEDATION | Radiologist 1: CECE, | | | | | | HENOK | | | | | | M.D.-Radiologist 2: | | | | | | HENOK ZHAO, | | | | | | M.D.Date: 02/08/96 | | | | | | Department: MRI | | | | | | Procedure: TOTAL SPINE | | | | | | MRIWeight: 4 KG Age: 6 | | | | | | WKS Allergies: NONE | | | | | | KNOWNBaseline Vital | | | | | | Signs: HR RR BP Pulse | | | | | | [id number]%Diagnosis: | | | | | | LIPOMYELOMENINGOCELE | | | | | | ASA Class: 1Meets | | | | | | NPO guidelines: | | | | | | YESConsent for | | | | | | sedation obtained? YES | | | | | | From: PARENTSMeets | | | | | | Assessment Standards | | | | | | For: Resp Cardiac | | | | | | Neuro Renal/Liver | | | | | | Sedation Hx: YES TO | | | | | | ALLSedation equipment | | | | | | per Sedation Service | | | | | | Protocols andStandards | | | | | | of Care: YES | | | | | | Physician Orders:CHLORAL | | | | | | HYDRATE 240MG P.O. | | | | | | Medications Given:Time | | | | | | Medication Dose Route | | | | | | [id number] CHLORAL | | | | | | HYDRATE 240MG PO LDK | | | | | | Intra-Procedure: | | | | | | LOC Banda: Level 1 = fully | | | | | | awake | | | | | | Level 2 = drowsy, | | | | | | anxiety free | | | | | | Level 3 = | | | | | | asleep, but arousable to | | | | | | voice stimulation | | | | | | Level 4 = | | | | | | arousable to painful | | | | | | stimulation | | | | | | Level 5 = no | | | | | | response to painful | | | | | | stimulation Time HR | | | | | | Resp BP Pulse OX | | | | | | Level of Consciousness | | | | | | [id number] | | | | | | 142 28 | | | | | | 98% 91565 140 | | | | | | 28 98% | | | | | | 63768 132 | | | | | | 28 98% | | | | | | 37609 140 26 | | | | | | 96% | | | | | | 34911 140 26 | | | | | | 95% 10866 | | | | | | 142 27 | | | | | | 96% 15220 132 | | | | | | | | | | | | 96% 3Post | | | | | | Procedure:1040 WOKE | | | | | | WHEN TAKEN OFF TABLE. | | | | | | NIPPLING | | | | | | HUNGRILY.Discharge: | | | | | | Time: 1050Outpatient: | | | | | | Discharge criteria met: | | | | | | YES CommentsDischarge | | | | | | to: PARENTSDischarge | | | | | | sheet and instructions | | | | | | given to: PARENTS NPO | | | | | | Guidelines ([facility] Dept | | | | | | Anesthesiology, May, | | | | | | 1992) Term | | | | | | neonates, infants, | | | | | | Clear liquids only | | | | | | Solids,milk | | | | | | Children<12yrs, 3 hrs | | | | | | prior to sedation 6 hrs | | | | | | prior to sedation * | | | | | | Under 1 year of age | | | | | | should be offered clears | | | | | | up to 3 hours prior | | | | | | to sedation. Normal | | | | | | Respiratory Assessment | | | | | | rate appropriate | | | | | | for age while at rest | | | | | | respirations quiet, | | | | | | regular, and nonlabored | | | | | | equal and clear | | | | | | breath sounds over both | | | | | | lung sorensen nail | | | | | | beds and mucous | | | | | | membranes pink | | | | | | sputum and nasal | | | | | | drainage clear if | | | | | | present normal | | | | | | facies Normal | | | | | | Cardiovascular | | | | | | Assessment: | | | | | | regular apical or radial | | | | | | pulse no murmur | | | | | | or extra heart sounds | | | | | | capillary refill | | | | | | less than 3 seconds | | | | | | no edema | | | | | | peripheral pulses | | | | | | palpable and of equal | | | | | | quality pink nail | | | | | | beds and mucous | | | | | | membranes Normal | | | | | | Neurological Assessment: | | | | | | Appropriate for | | | | | | Development Age | | | | | | responds appropriately | | | | | | to stimuli full | | | | | | range of motion (active | | | | | | or passive) with | | | | | | symmetry of | | | | | | strength | | | | | | behavior appropriate to | | | | | | situation alert | | | | | | and oriented gait | | | | | | steady if patient | | | | | | ambulatory | | | | | | exhibits | | | | | | verbalization/vocalizati | | | | | | on swallows | | | | | | without coughing or | | | | | | choking on liquids or | | | | | | solids clear | | | | | | vision or tracks and | | | | | | recognizes objects | | | | | | appropriately for | | | | | | development age Normal | | | | | | Renal Assessment | | | | | | negative history for | | | | | | renal failure | | | | | | voids appropriately for | | | | | | intake Normal Hepatic | | | | | | Assessment liver | | | | | | function within normal | | | | | | limits Negative HX | | | | | | liver disorders Normal | | | | | | Sedation History | | | | | | negative history for | | | | | | reaction to anesthetic | | | | | | agents negative | | | | | | history for reaction to | | | | | | sedative agents | | | | | | Discharge Criteria (AAP, | | | | | | 1991) 1. | | | | | | Cardiovascular function | | | | | | and airway patency are | | | | | | satisfactory and | | | | | | stable. 2. The | | | | | | patient is easily | | | | | | arousable, and | | | | | | protective reflexes are | | | | | | intact. 3. | | | | | | The patient can talk | | | | | | (if age appropriate). | | | | | | 4. The patient can | | | | | | sit up unaided (if age | | | | | | appropriate). 5. | | | | | | For a very young or | | | | | | handicapped child, | | | | | | incapable of the usually | | | | | | expected | | | | | | responses, the | | | | | | presedation level of | | | | | | responsiveness or | | | | | | a level as close as | | | | | | possible to the normal | | | | | | level for that child | | | | | | should be | | | | | | achieved. 6. The | | | | | | state of hydration is | | | | | | adequate. | | | | | | IMPRESSION:ASA-1 THE | | | | | | PATIENT TOLERATED DEEP | | | | | | SEDATION WITH | | | | | | CHLORALHYDRATE FOR MRI | | | | | | WITHOUT INCIDENT. END | | | | | | OF IMPRESSION: | | | | + + + + + + + + | Specimen | + + | | + + + + + | Narrative | Performed At | + + + | Ordered by NAVA CROUCH M.D. | | + + + + +---------+ + + | Performing | Address | City/State/Zipcode | Phone Number | | Organization | | | | + +---------+ + + | [facility] DEPARTMENT OF | | | | | RADIOLOGY | | | | + +---------+ + + MRI T-SPINE, UP/LOW, 3 SEQ [facility] (02/08/1996 10:30 AM PST) + + + + + + | Component | Value | Ref Range | Performed | Pathologist | | | | | At | Signature | + + + + + + | MRI | Radiologist 1: GREGORY, | | | | | T-SPINE, | ULISES Blackman, | | | | | UP/LOW, 3 | M.D.-Radiologist 2: | | | | | SEQ [facility] | JOHNATHON ROYAL, | | | | | | MADAMA VICTORIA | | | | | | | | | | | | | | | | | | [birth year] MRI | | | | | | SCAN OF THORACIC AND | | | | | | LUMBAR SPINE: 02-08-96 | | | | | | at 1030 hours | | | | | | Dictated: 02-10-96 | | | | | | PROCEDURE: T1 and T2 | | | | | | weighted sagittal and | | | | | | axial images of | | | | | | thethoracic and lumbar | | | | | | spine comprise the | | | | | | study. FINDINGS: | | | | | | THORACIC SPINE: | | | | | | Sagittal and axial | | | | | | images demonstrated a | | | | | | normalappearing thoracic | | | | | | spinal cord without | | | | | | signal | | | | | | abnormalitiesidentified. | | | | | | No spinal dysraphism | | | | | | is evident at the | | | | | | thoracic level. LUMBAR | | | | | | SPINE: Spinal | | | | | | dysraphism is present, | | | | | | with wide | | | | | | dysraphicposterior | | | | | | elements at L5, S1 and | | | | | | S2. An intraspinal | | | | | | lipoma is presentwhich | | | | | | becomes contiguous with | | | | | | a myelomeningocele. | | | | | | There are nerveroots | | | | | | which appear to course | | | | | | through the upper | | | | | | portion of the lipomaand | | | | | | there are probably | | | | | | other nerve roots that | | | | | | are coursing throughthis | | | | | | region as well that are | | | | | | simply not visualized. | | | | | | The cordcontinues to | | | | | | the L3 level, where it | | | | | | is met by a lipoma and | | | | | | both extendcaudally to | | | | | | approximately L5 where | | | | | | they become contiguous | | | | | | with | | | | | | themyelomeningocele. | | | | | | IMPRESSION: | | | | | | Lipomyelomeningocele as | | | | | | described above. | | | | | | Dysraphic posterior | | | | | | elementsare seen from | | | | | | L5-S2. END OF | | | | | | IMPRESSION: | | | | + + + + + + + + | Specimen | + + | | + + + + + | Narrative | Performed At | + + + | Ordered by NAVA CROUCH M.D. | | + + + + +---------+ + + | Performing | Address | City/State/Zipcode | Phone Number | | Organization | | | | + +---------+ + + | [facility] DEPARTMENT OF | | | | | RADIOLOGY | | | | + +---------+ + + MRI L-SPINE, 3 WILLIAM (02/08/1996 10:30 AM PST) + + + + + + | Component | Value | Ref Range | Performed | Pathologist | | | | | At | Signature | + + + + + + | MRI | Radiologist 1: GREGORY, | | | | | L-SPINE, 3 | ULISES Blackman, | | | | | WILLIAM | M.D.-Radiologist 2: | | | | | | JOHNATHON ROYAL | | | | | | ADAMA RAMIREZ | | | | | | | | | | | | | | | | | | [birth year] MRI | | | | | | SCAN OF THORACIC AND | | | | | | LUMBAR SPINE: 02-08-96 | | | | | | at 1030 hours | | | | | | Dictated: 02-10-96 | | | | | | PROCEDURE: T1 and T2 | | | | | | weighted sagittal and | | | | | | axial images of | | | | | | thethoracic and lumbar | | | | | | spine comprise the | | | | | | study. FINDINGS: | | | | | | THORACIC SPINE: | | | | | | Sagittal and axial | | | | | | images demonstrated a | | | | | | normalappearing thoracic | | | | | | spinal cord without | | | | | | signal | | | | | | abnormalitiesidentified. | | | | | | No spinal dysraphism | | | | | | is evident at the | | | | | | thoracic level. LUMBAR | | | | | | SPINE: Spinal | | | | | | dysraphism is present, | | | | | | with wide | | | | | | dysraphicposterior | | | | | | elements at L5, S1 and | | | | | | S2. An intraspinal | | | | | | lipoma is presentwhich | | | | | | becomes contiguous with | | | | | | a myelomeningocele. | | | | | | There are nerveroots | | | | | | which appear to course | | | | | | through the upper | | | | | | portion of the lipomaand | | | | | | there are probably | | | | | | other nerve roots that | | | | | | are coursing throughthis | | | | | | region as well that are | | | | | | simply not visualized. | | | | | | The cordcontinues to | | | | | | the L3 level, where it | | | | | | is met by a lipoma and | | | | | | both extendcaudally to | | | | | | approximately L5 where | | | | | | they become contiguous | | | | | | with | | | | | | themyelomeningocele. | | | | | | IMPRESSION: | | | | | | Lipomyelomeningocele as | | | | | | described above. | | | | | | Dysraphic posterior | | | | | | elementsare seen from | | | | | | L5-S2. END OF | | | | | | IMPRESSION: | | | | + + + + + + + + | Specimen | + + | | + + + + + | Narrative | Performed At | + + + | Nick CROUCH M.D. | | + + + + +---------+ [...]
--- OUTSIDE RECORDS SUMMARY | ~2019-10-26 | XMS | Encounter Summary ---
Demographics + + + | Address | [address] | | | [place] [address] | + + + | Home Phone [...] [place] | | | | | [address] | | + + + + + Care Team Providers + +------+ + | Care Assurance Analyst Name | Role | Phone | [...]
--- OUTSIDE RECORDS SUMMARY | ~2019-10-26 | XMS | Encounter Summary ---
Demographics + + + | Address | [address] | | | [place] [address] | + + + | Home Phone [...] [place] | | | | | [address] | | + + + + + Care Team Providers + +------+ + | Care Trimmer Climber Name | Role | Phone | + +------+ + PCP | Unavailable | + +------+ + Encounter Details +--------+ + + + + | Date | Type | Department | Care Team | Description | +--------+ + + + + | 01/04/ | Results | [facility]th | Dave Malik MD | | | 2002 | Only | Floor [address] | [address] | | | | | St Mailcode: [facility] | Maritza Ferreira [place], | | | | | [facility] [place], [place] | [place] [address] | | | | | [address] | [phone] | | | | | [phone] | | | +--------+ + + + [...] It | | | | | | [id number] cc prior to | | | | [...]
--- OUTSIDE RECORDS SUMMARY | ~2019-10-26 | XMS | Encounter Summary ---
Demographics + + + | Address | [address] | | | [place] [address] | + + + | Home Phone [...] [place] | | | | | [address] | | + + + + + Care Team Providers + +------+ + | Care Lining Sewer Name | Role | Phone | + [...] | Transcriptions | + + | Interface, Stone Lathe Operator In - 05/30/2006 3:07 AM PDT | | [facility] [address] | | [place], [place] [address] | | [facility] RECORDMed Rec No.: | | [id number] Date: 02/20/2003Name: Pete Orozco SURGEON: | | Soha Nettles M.D.MANAGER POLICY: Luis Klein | | MorrisPREOPERATIVE DIAGNOSIS:Tethered cord [...] was opened with a 15 blade. A Perris was passed over the dura.The dural | [...] M.D. Soha Nettles, | | MorrisNEREIDA:x54D: 02/20/2003T: 02/21/[id number] | | | |Next, the microscope was brought into the field and microdissection began. | |The dura was opened with a 15 blade. A Perris was passed over the dura. | |The [...] | |NEREIDA:x54 | | | | | |[id number] | + + documented in this encounter Visit Diagnoses Not on filedocumented in this encounter"
--- OUTSIDE RECORDS SUMMARY | ~2019-10-26 | XMS | Encounter Summary ---
Demographics + + + | Address | [address] | | | [place] [address] | + + + | Home Phone [...] [place] | | | | | [address] | | + + + + + Care Team Providers + +------+ + | Care Director Digital Analytics Name | Role | Phone | + [...] | | | [address] | Road [place], [place] | | | | | [place], [place] | [address] | | | | | [address] | | | +--------+ + + + [...]
--- OUTSIDE RECORDS SUMMARY | ~2019-10-26 | XMS | Encounter Summary ---
Demographics + + + | Address | [address] | | | [place] [address] | + + + | Home Phone [...] [place] | | | | | [address] | | + + + + + Care Team Providers + +------+ + | Care Pin Sticker Name | Role | Phone | + [...] | 04/29/ | Telephone | [facility] | Enriqueta, | Social work | | 2006 | | Floor [address] | Neli, [employer] [address] | consultation | | | | St Mailcode: [facility] | [address] | | | | | [facility] [place], [place] | [address] [place], [place] | | | | | [address] | [address] | | | | | [phone] | | | +--------+ + + + [...]
--- OUTSIDE RECORDS SUMMARY | ~2019-10-26 | XMS | Encounter Summary ---
Demographics + + + | Address | [address] | | | [place] [address] | + + + | Home Phone [...] [place] | | | | | [address] | | + + + + + Care Team Providers + +------+ + | Care Interpreter Translator Name | Role | Phone | + [...] | 06/06/ | Office | [facility] | Olena Grijalva, | Lipomyelomeningocele | | 2008 | Visit | Floor [address] | OT [address] | (Primary Dx) | | | | St Mailcode: [facility] | [facility] | | | | | [place], [place] | [place] [address] | | | | | [address] | [phone] | | | | | [phone] | | | +--------+---------+ + + + [...] might be different fr om the original. [facility] Occupational Therapy Assessment Clinic/Program: Spina Bifida [...] Previous Clinics: Spina Bifida 04/23, Followed at [facility] orthopedics Medical History: Medical history was provided through chart review and caregiver interview. 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 S/p complex orthopedic surgeries or R foot and a nkle deformity, most recently 12/24 now well aligned and ambulating without device. Social/Educational History: Lives in [place] with family. Going into 8th Grade. Current [...] sentence he w rote "I whint to [employer]" in an attempt to write "I went [...] rding resouces and recommendations was provided. The [facility] recognizes that it is the respons [...] free to contact me by email at [email or web address] [email or web address] Grijalva MS, OTR/L Occupational Therapist [facility] [place] [email or web address] documented in this e ncounter Plan of Treatment + + +--------+ + + | Name | Type | Priori | Associated Diagnoses | Order Schedule | | | | ty | | | + + +--------+ + + | MD OCCUPATIONAL | Procedures | Routin | | [...]
--- OUTSIDE RECORDS SUMMARY | ~2019-10-26 | XMS | Encounter Summary ---
Demographics + + + | Address | [address] | | | [place] [address] | + + + | Home Phone [...] [place] | | | | | [address] | | + + + + + Care Team Providers + +------+ + | Care Provider Relations Rep Name | Role | Phone | + +------+ + PCP | Unavailable | + +------+ + Encounter Details +--------+ + + + + | Date | Type | Department | Care Team | Description | +--------+ + + + + | 05/31/ | Results | Specialty Clinics | Js Deng MD | | | 2001 | Only | at [facility] [address] | [address] | | | | | [place] | [facility] [place] | | | | | Mailcode:[id number] | [address] | | | | | [place] | [phone] | | | | | [place], [place] | | | | | | [address] | | | | | | [phone] | | | +--------+ + + + [...] | SEDATION IN MRI | Routin | 05/31/2002 | | Results for this | | | e | 1:55 PM | | procedure are in the | | | | PDT | | results section. | + +--------+ + + + | MRI SPINE THORACIC | Routin | 05/31/2002 | | Results for this | | WO CONTRST | e | 1:00 PM | | procedure are in the | | | | PDT | | results section. | + +--------+ + + + | MRI SPINE LUMBAR WO | Routin | 05/31/2002 | | Results for this | | CONT | e | 1:00 PM | | procedure are in the | | | | PDT | | results section. | + +--------+ + + + | MRI SPINE CERVICAL | Routin | 05/31/2002 | | Results for this | | WO CONTRAST | e | 1:00 PM | | procedure are in the | | | | PDT | | results section. | + +--------+ + + + documented in this encounter Results SEDATION IN MRI (05/31/2002 1:55 PM PDT) + + + + + + | Component | Value | Ref Range | Performed | Pathologist | | | | | At | Signature | + + + + + + | SEDATION | Radiologist 1: CECE | | | | | | HENOK | | | | | | Morris-Radiologist 2: | | | | | | VIVI DAY | | | | | | R.N.Date: 05/31/02 | | | | | | Department: MRI | | | | | | Procedure/study: TOTAL | | | | | | SPINE Diagnosis: HISTORY | | | | | | SPINA BIFIDA NOW BACK | | | | | | PAIN AND DRAGGING ONE | | | | | | FOOTWITH EXTENSIVE | | | | | | WALKING. ASA Class: II | | | | | | Weight: 20 KG Age: 6 | | | | | | YRS Allergies: NKDA | | | | | | Medications: Baseline | | | | | | Vital Signs: HR-108 RR | | | | | | BP-99/62 SaO2-99% Meets | | | | | | NPO guidelines: YES | | | | | | Consent for sedation | | | | | | obtained? YES From: | | | | | | MOM Meets Assessment | | | | | | Standards For: Resp | | | | | | Cardiac Neuro | | | | | | Renal/Liver Sedation | | | | | | HxVariance: Sedation | | | | | | equipment per Sedation | | | | | | Service Protocols | | | | | | andStandards of Care: | | | | | | YES Intravenous Access: | | | | | | EMLA IV start: | | | | | | Time-1110 Site-R HAND | | | | | | Gauge-22 IV care per | | | | | | protocol-YES Physician | | | | | | Orders: PER DR. ZHAO | | | | | | Medications Given:Time | | | | | | Medication Dose | | | | | | Route | | | | | | [id number] VERSED | | | | | | 2 MG IV | | | | | | [id number] | | | | | | NEMBUTAL 90 MG | | | | | | IV [id number] | | | | | | PROPOFOL 50 | | | | | | MG IV AK/WB | | | | | | Procedure | | | | | | Summary:Awakened and | | | | | | resedated times two, due | | | | | | to long scantime. | | | | | | Tolerated sedation well | | | | | | with natural | | | | | | airway.Uneventful | | | | | | recovery. Discharge: | | | | | | Time: 1355Discharge | | | | | | to: HOME WITH PARENTS | | | | | | PER W/CDischarge sheet | | | | | | and instructions given | | | | | | to: MOTHERComments: | | | | | | IMPRESSION: ASA-II THE | | | | | | PATIENT TOLERATED DEEP | | | | | | SEDATION WITHOUT | | | | | | INCIDENT. END OF | | | | | | IMPRESSION: | | | | + + + + + + + + | Specimen | + + | | + + + +---------+ + + | Performing | Address | City/State/Zipcode | Phone Number | | Organization | | | | + +---------+ + + | [facility] DEPARTMENT OF | | | | | RADIOLOGY | | | | + +---------+ + + MRI SPINE THORACIC WO CONTR (05/31/2002 1:00 PM PDT) + + + + + + | Component | Value | Ref Range | Performed | Pathologist | | | | | At | Signature | + + + + + + | MR THORACIC | Radiologist 1: GREGORY, | | | | | SPINE WO | ULISES Blackman | | | | | RANJANA | Morris-Radiologist 2: | | | | | | LUNA MORROW, | | | | | | M.D.MRI OF THE CERVICAL, | | | | | | THORACIC, AND LUMBAR | | | | | | SPINE: 05/31/2002 | | | | | | Dictated: 05/31/2002 | | | | | | COMPARISON: None | | | | | | available. TECHNIQUE: | | | | | | Axial and sagittal T1 | | | | | | and T2 images of the | | | | | | entire spine. 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 The cord splits | | | | | | at approximately the | | | | | | L2-3 levelwith nerve | | | | | | roots extending into a | | | | | | large distal lipoma. A | | | | | | small amountof fluid is | | | | | | also seen within the | | | | | | cord at the L2-3 level. 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 The vertebral | | | | | | body heights, disc | | | | | | spaces and alignments | | | | | | are maintained.The | | | | | | cervical medullary | | | | | | junction is normal, and | | | | | | there is no evidence | | | | | | ofChiari malformation. | | | | | | The cervical and | | | | | | thoracic cord signal | | | | | | andmorphology is normal. | | | | | | IMPRESSION: Findings | | | | | | consistent with previous | | | | | | lipomyelomeningocele | | | | | | repair withresidual | | | | | | abnormalities as | | | | | | described. Correlation | | | | | | with previousstudies if | | | | | | available would be | | | | | | helpful. END OF | | | | | | IMPRESSION: Addendum # | | | | | | 1 The addendum | | | | | | associates the | | | | | | examinations | | | | | | interpretation in | | | | | | thisreport. | | | | + + + + + + + + | Specimen | + + | | + + + +---------+ + + | Performing | Address | City/State/Zipcode | Phone Number | | Organization | | | | + +---------+ + + | [facility] DEPARTMENT OF | | | | | RADIOLOGY | | | | + +---------+ + + MRI SPINE LUMBAR WO CONT (05/31/2002 1:00 PM PDT) + + + + + + | Component | Value | Ref Range | Performed | Pathologist | | | | | At | Signature | + + + + + + | MR LUMBAR | Radiologist 1: GREGORY, | | | | | SPINE WO | ULISES Blackman, | | | | | CONT | M.D.-Radiologist 2: | | | | | | LUNA MORROW, | | | | | | M.D.MRI OF THE CERVICAL, | | | | | | THORACIC, AND LUMBAR | | | | | | SPINE: 05/31/2002 | | | | | | Dictated: 05/31/2002 | | | | | | COMPARISON: None | | | | | | available. TECHNIQUE: | | | | | | Axial and sagittal T1 | | | | | | and T2 images of the | | | | | | entire spine. 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 The cord splits | | | | | | at approximately the | | | | | | L2-3 levelwith nerve | | | | | | roots extending into a | | | | | | large distal lipoma. A | | | | | | small amountof fluid is | | | | | | also seen within the | | | | | | cord at the L2-3 level. 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 The vertebral | | | | | | body heights, disc | | | | | | spaces and alignments | | | | | | are maintained.The | | | | | | cervical medullary | | | | | | junction is normal, and | | | | | | there is no evidence | | | | | | ofChiari malformation. | | | | | | The cervical and | | | | | | thoracic cord signal | | | | | | andmorphology is normal. | | | | | | IMPRESSION: Findings | | | | | | consistent with previous | | | | | | lipomyelomeningocele | | | | | | repair withresidual | | | | | | abnormalities as | | | | | | described. Correlation | | | | | | with previousstudies if | | | | | | available would be | | | | | | helpful. END OF | | | | | | IMPRESSION: Addendum # | | | | | | 1 The addendum | | | | | | associates the | | | | | | examinations | | | | | | interpretation in | | | | | | thisreport. | | | | + + + [...] | | + +---------+ + + MRI SPINE CERVICAL WO CONTRAST (05/31/2002 1:00 PM PDT) + + + + + + | Component | Value | Ref Range | Performed | Pathologist | | | | | At | Signature | + + + + + + | MR CERVICAL | Radiologist 1: GREGORY, | | | | | SPINE WO | ULISES Blackman, | | | | | CONTRAST | M.D.-Radiologist 2: | | | | | | LUNA MORROW, | | | | | | M.D.MRI OF THE CERVICAL, | | | | | | THORACIC, AND LUMBAR | | | | | | SPINE: 05/31/2002 | | | | | | Dictated: 05/31/2002 | | | | | | COMPARISON: None | | | | | | available. TECHNIQUE: | | | | | | Axial and sagittal T1 | | | | | | and T2 images of the | | | | | | entire spine. 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 The cord splits | | | | | | at approximately the | | | | | | L2-3 levelwith nerve | | | | | | roots extending into a | | | | | | large distal lipoma. A | | | | | | small amountof fluid is | | | | | | also seen within the | | | | | | cord at the L2-3 level. 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 The vertebral | | | | | | body heights, disc | | | | | | spaces and alignments | | | | | | are maintained.The | | | | | | cervical medullary | | | | | | junction is normal, and | | | | | | there is no evidence | | | | | | ofChiari malformation. | | | | | | The cervical and | | | | | | thoracic cord signal | | | | | | andmorphology is normal. | | | | | | IMPRESSION: Findings | | | | | | consistent with previous | | | | | | lipomyelomeningocele | | | | | | repair withresidual | | | | | | abnormalities as | | | | | | described. Correlation | | | | | | with previousstudies if | | | | | | available would be | | | | | | helpful. END OF | | | | | | IMPRESSION: Addendum # | | | | | | 1 The addendum | | | | | | associates the | | | | | | examinations | | | | | | interpretation in | | | | | | thisreport. | | | | + + + + + + + + | Specimen | + + | | + + + +---------+ + + | Performing | Address | City/State/Zipcode | Phone Number | | Organization | | | | + +---------+ + + | [facility] DEPARTMENT OF | | | | | RADIOLOGY | | | | + +---------+ + + documented in this encounter Visit Diagnoses Not on filedocumented in this encounter"
--- OUTSIDE RECORDS SUMMARY | ~2019-10-26 | XMS | Encounter Summary ---
Demographics + + + | Address | [address] | | | [place] [address] | + + + | Home Phone [...] [place] | | | | | [address] | | + + + + + Care Team Providers + +------+ + | Care Grocery Store Bagger Name | Role | Phone | + +------+ + PCP | Unavailable | + +------+ + Encounter Details +--------+ + + + + | Date | Type | Department | Care Team | Description | +--------+ + + + + | 03/06/ | Results | [facility] 7th | Dave Malik MD | | | 2003 | Only | Floor [address] | [address] | | | | | [address] Mailcode: [facility] | Maritza Ferreira [place], | | | | | [facility] [place], [place] | [place] [address] | | | | | [address] | [phone] | | | | | [phone] | | | +--------+ + + + [...] + + | Performing | Address | City/State[facility] | Phone Number | | Organization | | | | + +---------+ + + | [facility] DEPARTMENT | | | | | RADIOLOGY | | | | + +---------+ + + documented in this encounter Visit Diagnoses Not on filedocumented in this encounter"
--- OUTSIDE RECORDS SUMMARY | ~2019-10-26 | XMS | Encounter Summary ---
Demographics + + + | Address | [address] | | | [place] [address] | + + + | Home Phone [...] [place] | | | | | [address] | | + + + + + Care Team Providers + +------+ + | Care Fire Fighter Name | Role | Phone | + [...] as of this encounter Progress Notes Interface, Operating Room Specialist In - 08/03/2006 3:07 AM [facility] [place] [address] [place], [place] [address] or November 17, 2001 Umm Kaufman M.D. [address] [place] [address] RE: ADAMA OROZCO MR #: [id number] Dear Dr. Kaufman: It is a pleasure [...] He gets straight cath'd with an #8 Malay every 4 hours during the daytime, and [...] parents. They are currently living in the [facility]. Things seem to be going pretty well and both parents are consistent with [place]'s care. On physical exam, the height is [...] Robert Johnson M.D. Developmental Pediatrics JAT / [id number] / [id number] / [id number] / [id number] signed by Interface, Operating Room Specialist In at 08/03/2006 3:07 AM PDTdoc umented in this encounter Plan of Treatment Not on filedocumented as of this encounter Visit Diagnoses Not on filedocumented in this encounter"
--- OUTSIDE RECORDS SUMMARY | ~2019-10-26 | XMS | Encounter Summary ---
Demographics + + + | Address | [address] | | | [place] [address] | + + + | Home Phone | | + + + | Preferred Language | Unknown | + + + | Marital Status | Unknown | + + + | Latter-Day Affiliation | Unknown | + + + | Race | Unknown | + + + | Ethnic Group | Unknown | + + + Author + + + | Author | [facility] | | | and [place] | + + + | Organization | [facility] | | | and [place] [...] Team Providers + +------+ + | Care Emblem Cutter Name | Role | Phone | + +------+ + PCP | Unavailable | + +------+ + Encounter Details +--------+ + + + + | Date | Type | Department | Care Team | Description | +--------+ + + + + | 12/19/ | Hospital | [facility] IP | Conversion | Pain | | 2019 | Encounter | CONVERSION [address] | Transaction, | | | | | [address] | Provider Unknown | | | | | [place] | [phone] | | | | | [address] | | | | | | [phone] | | | +--------+ + + + [...] | + +--------+ + + + | CT HEAD WO CONTRAST | Routin | 12/18/2018 | | Results for this | | | e | 11:51 PM | | procedure are in the | | | | PST | | results section. | + +--------+ + + + documented in this encounter Results CT Head wo Contrast (12/18/2018 11:51 PM PST) + + | Specimen | + + | | + + + + + | Narrative | Performed At | + + + | This is a non-reportable procedure without a radiologist report and | | | is used for image storage only | | + + + + + | Procedure Note | + + | Bebeto Regalado Marjorie - 06/28/2019 9:49 PM PDT This is a non-reportable procedure | | without a radiologist report and isused for image storage only | + + documented in this encounter Visit Diagnoses + + | Diagnosis | + + | Pain Generalized pain | + + documented in this encounter"
--- OUTSIDE RECORDS SUMMARY | ~2019-10-26 | XMS | Encounter Summary ---
Demographics + + + | Address | [address] | | | [place] [address] | + + + | Home Phone [...] [place] | | | | | [address] | | + + + + + Care Team Providers + +------+ + | Care Graining Press Operator Name | Role | Phone | [...] Consultation | | | | cribed | [address] | | | | | | Loop Mailcode: | | | | | | [id number] Physician[address] | | | | | | [place], | | | | | | [place] [address] | | | | | | [phone] | | | +--------+ + + + [...] as of this encounter Progress Notes Interface, Diversity Manager In - 02/05/2007 5:02 AM PDT CLINIC [...] spine shortly before his operation. On the cider maker view the cervical spinal cord is imaged. [...] August, at the [facility] in [place]. If he seems to progress in any way in the asymmetry of his movements, we can initiate an investigation at that point. Shiraz Vance Jr., M.D., F.A.A.P. Sound Equipment Mechanic, Neurosurgery and Pediatrics [facility] A cc: Godfrey Cuello M.D. [address] [place] [phone] nterface, Diversity Manager In - 02/03/2007 8:04 AM PDT CLINIC [...] age. Kathy Simms M.S., OTR/L Occupational Therapist [place]STINA /elias P cc: nterface, Diversity Manager In - 02/03/2007 8:04 AM PDT CLINIC [...] He is able to transfer objects from hwbo-rt-mzua when they are held over his face. [...] and he has already been referred to [facility]. Recommendations at this point are to have him reach actively with his right arm up against gravity, and to stimulate his right upper extremity movement as much as they can. They should also attempt to adjust the weight-bearing of the right leg so that he is standing sole-down. These recommendations will also be sent to the [facility] physical therapists so that they can be involved with this as well. He should return to this clinic per [facility] recommendations. Raul Keating Physical Therapist DO:nohelia cc: [facility] [place] [phone] documented in this encounter Plan of Treatment Not on filedocumented as of this encounter Visit Diagnoses Not on filedocumented in this encounter
--- OUTSIDE RECORDS SUMMARY | ~2019-10-26 | XMS | Encounter Summary ---
Demographics + + + | Address | [address] | | | [place] [address] | + + + | Home Phone [...] [place] | | | | | [address] | | + + + + + Care Team Providers + +------+ + | Care Guest Service Manager Name | Role | Phone | + +------+ + | Umm Kaufman MD | PCP | | + +------+ + Reason for Visit + + + | Reason | Comments | + + + | Urodynamics | | + + + Encounter Details +--------+ + + + + | Date | Type | Department | Care Team | Description | +--------+ + + + + | 01/17/ | Procedure | Urology -Pediatric | Anita Lopez, | Urodynamics | | 2010 | | [address] | PNP [address] [facility] | | | | | Mailcode: CDW[address] | [address] | | | | | [place] | [place], [place] | | | | | [place], [place] | [address] | | | | | [address] | [phone] | | | | | [phone] | | | +--------+ + + + [...] encounter Progress Notes Anita Lopez, PNP - 01/17/2011 4:57 PM PSTUrodynamics Examination Indications: Pete Orozco is a 15 y.o. male with neurogenic bladder. He is on CIC wi th 14 fr catheter 4 times per day (instructed for at least 5) and leaks day/night. He is sup posed to be on Ditropan but is not taking it now. He is unable to state why. Normal MILTON exce pted for mild left hydro that resolves with cathing and trabeculated bladder. Concern for sp inal cord re-tethering and presents for UDS. Procedures: 1. Complex cystometrogram 2. Electromyography of urethral sphincter 3. Voiding pressure study 4. Intraabdominal pressure monitoring 5. Voiding cystourethrogram 6. Injection of contrast for cystogram Procedure: At 1310 (time), prior to the beginning of the [...] members were present during the team pause Rosette Villavicencio CMA and RAKAN Black. Following informed consent, the patient's urethral meatus was prepped with Betadine and the lubricated urodynamics catheter was inserted. The post-void residual was measured. The EMG pads were placed appropriately, and the rectal pressure transducer was inserted into the rec desi. Infusion of dilute contrast was begun and infused at a rate of 20-25 ml/min per protoco l. Continuous calibrated electronic pressure monitoring of the bladder, abdomen, and detruso r were recorded. The electromyography activity of the pelvic floor musculature was also con tinuously recorded. Fluoroscopy was used to image the bladder throughout the procedure. Once the filling phas e was completed and leak point pressures determined, the catheters and EMG pads were removed . The patient tolerated the procedure well, and there were no complications. Results: 1. Bladder capacity 330 ml - [...] >40 cm of H2O at end filling Small, poorly compliant bladder. Today's UDS demonstrates decreased bladder capacity but st udy stopped due to leak point pressures found and increased bladder pressures. He cathed 400 ml at start of study - fairly unchanged from last study. Recommendations: CIC Take the Ditropan!!! Family is interested in chait tube and willingly to discuss bladder augmentation given poor pressures, early hydro. Bring back to [facility] in next couple of months and coordinate [facility] peds surgery appt to review surgical options Cr, BUN to be drawn today. Reviewed with Dr. Douglas who agrees. Dr. Douglas was available, if needed, for the above mentioned procedure. documented in this encounter Plan of Treatment + +---------+--------+ + + | Name | Type | Priori | Associated Diagnoses | Order Schedule | | | | ty | | | + +---------+--------+ + + | IA | Imaging | Routin | Neurogenic | Ordered: 01/16/2011 | | URETHROCYSTOGRAM+VOI | | e | bladder, NOS | | | DING | | | Lipomyelomeningocele | | | | | | Neurogenic bowel | | + +---------+--------+ + + documented as of this encounter Procedures + +--------+ + + + | Procedure Name | Priori | Date/Time | Associated Diagnosis | Comments | | | ty | | | | + +--------+ + + + | UA 10 DIP POC | Routin | 01/17/2011 | Neurogenic | Results for this | | | e | 2:22 PM | bladder, NOS | procedure are in the | | | | PST | Lipomyelomeningocele | results section. | | | | | Neurogenic bowel | | + +--------+ + + + | IA INJECTION FOR | Routin | 01/16/2011 | Neurogenic | | | BLADDER X-RAY | e | 11:45 AM | bladder, NOS | | | | | PST | Lipomyelomeningocele | | | | | | Neurogenic bowel | | + +--------+ + + + | IA CYSTOMETROGRAM | Routin | 01/16/2011 | Neurogenic | | | W/NUTRITION SERVICES WORKER | e | 11:45 AM | bladder, NOS | | | | | PST | Lipomyelomeningocele | | | | | | Neurogenic bowel | | + +--------+ + + + | IA INTRAABDOMINAL | Routin | 01/16/2011 | Neurogenic | | | PRESSURE TEST | e | 11:45 AM | bladder, NOS | | | | | PST | Lipomyelomeningocele | | | | | | Neurogenic bowel | | + +--------+ + + + | IA ANAL/URINARY | Routin | 01/16/2011 | Neurogenic | | | MUSCLE STUDY | e | 11:45 AM | bladder, NOS | | | | | PST | Lipomyelomeningocele | | | | | | Neurogenic bowel | | + +--------+ + + + documented in this encounter Results UA DIPSTICK ONLY W/O MICRO, POC (01/17/2011 2:22 PM PST) + + + + + + | Component | Value | Ref Range | Performed | Pathologist | | | | | At | Signature | + + + + + + | COLOR (UA | yellow | | [facility] - | | | DIP), POC | | | [facility] | | | | | | [facility] | | | | | | OF CARE | | | | | | TESTS | | + + + + + + | APPEARANCE | sl cloudy | | [facility] - | | | (UA DIP), | | | [facility] | | | POC | | | [facility] | | | | | | OF CARE | | | | | | TESTS | | + + + + + + | LEUKOCYTES | neg | Negative | [facility] - | | | (UA DIP), | | | [facility] | | | POC | | | [facility] | | | | | | OF CARE | | | | | | TESTS | | + + + + + + | NITRITES | neg | Negative | [facility] - [...] + + + | PROTEIN (UA | neg | Negative to | [facility] - | | | DIP), POC | | Trace mg/dL | [facility] | | | | | | [facility] | | | | | | OF CARE | | | | | | TESTS | | + + + + + + | PH (UA | 6.0 | 5 - 8 | [facility] - | | | DIP), POC | | | [facility] | | | | | | [facility] | | | | | | OF CARE | | | | | | TESTS | | + + + + + + | BLOOD (UA | neg | Negative | [facility] [...] (UA | neg | Negative mg/dL | [facility] - | | | DIP), [...] DIP), POC | | Trace mg/dL | [facility] | | | | | [...] DRAPER | [address] | [place], [place] | | | [facility] CARE | [address] | [address] | | | TESTS | | | | + + + + + documented in this encounter Visit Diagnoses + + | Diagnosis | + + | Neurogenic bladder, NOS | + + | Lipomyelomeningocele Spina bifida without mention of hydrocephalus, lumbar region | + + | Neurogenic bowel | + + documented in this encounter"
--- OUTSIDE RECORDS SUMMARY | ~2019-10-26 | XMS | Encounter Summary ---
Demographics + + + | Address | [address] | | | [place] [address] | + + + | Home Phone [...] [place] | | | | | [address] | | + + + + + Care Team Providers + +------+ + | Care Electric Meter Technician Name | Role | Phone | [...] as of this encounter Progress Notes Interface, Union Laborer In - 07/16/2005 5:02 AM PDT [id number] [facility] Date: 07/02/2005 Clinic Name: [facility] History of Present Illness: Gabriel is a 9-year-old male with a history of lumbosacral lipomyelomeningocele. He has been followed for his neurogenic bladder and was last seen in February 2004. He currently catheterizes with a 10-Faroese catheter every 4 hours with volumes up [...] dry on clean intermittent catheterization with a 10-Faroese catheter in conjunction with anticholinergic Ditropan 5 [...] ultrasound and clinical followup. Shanna Valenzuela M.D. [facility] / [id number] / [id number] / [id number] / [id number] Electronically signed by Shanna Valenzuela 07-15-2005 02:55:07 PM documented i n this encounter Plan of Treatment Not on filedocumented as of this encounter Visit Diagnoses Not on filedocumented in this encounter"
--- OUTSIDE RECORDS SUMMARY | ~2019-10-26 | XMS | Encounter Summary ---
Demographics + + + | Address | [address] | | | [place] [address] | + + + | Home Phone [...] [place] | | | | | [address] | | + + + + + Care Team Providers + +------+ + | Care Groundwater Consultant Name | Role | Phone | [...] | | 2006 | Registratio | [facility] | [address] | | | | [address] | [address] Mailcode: RPB07 | [place], [place] | | | | | [place], [place] | [address] | | | | | [address] | [phone] | | | | | [phone] | | | +--------+ + + + [...] examination | | | | | | tpm347.7 cc. The | | | | | [...] | | + +---------+ + + | [facility] DEPARTMENT OF | | | | | RADIOLOGY | | | | + +---------+ + + documented in this encounter Visit Diagnoses Not on filedocumented in this encounter"
--- OUTSIDE RECORDS SUMMARY | ~2019-10-26 | XMS | Encounter Summary ---
Demographics + + + | Address | [address] | | | [place] [address] | + + + | Home Phone [...] [place] | | | | | [address] | | + + + + + Care Team Providers + +------+ + | Care Battery Checker Name | Role | Phone | [...] | | 2005 | Registratio | [facility] | [address] | | | | [address] | [address] Mailcode: RPB07 | [place], [place] | | | | | [place], [place] | [address] | | | | | [address] | [phone] | | | | | [phone] | | | +--------+ + + + [...]
--- OUTSIDE RECORDS SUMMARY | ~2019-10-26 | XMS | Encounter Summary ---
Demographics + + + | Address | [address] | | | [place] [address] | + + + | Home Phone [...] [place] | | | | | [address] | | + + + + + Care Team Providers + +------+ + | Care Downstairs Maid Name | Role | Phone | + [...] of this encounter Progress Notes Interface, Senior Business Consultant In - 11/13/2006 3:02 AM PSTCLINIC DATE: [...] concerned about abdominal pain. She says that Pete takes a few bites of food at [...] him then. Shiraz Vance Jr., Ludwig., F.A.A.P. Analytical Research Program Manager, Department of Neurological Surgery and Pediatrics JHP:sgr cc: GEOFF NG MD [address] [facility] [place] [id number] signed by Interface, Senior Business Consultant In at 11/13/2006 3:02 AM PSTdocumented in this encounter Plan of Treatment Not on filedocumented as of this encounter Visit Diagnoses Not on filedocumented in this encounter"
--- OUTSIDE RECORDS SUMMARY | ~2019-10-26 | XMS | Encounter Summary ---
Demographics + + + | Address | [address] | | | [place] [address] | + + + | Home Phone [...] [place] | | | | | [address] | | + + + + + Care Team Providers + +------+ + | Care Paid Internship Name | Role | Phone | + [...] as of this encounter Progress Notes Interface, Binder Sorter In - 06/14/2005 7:09 PM PDTClinic Date: [...] AFO was prescribed and was made by [facility] in the [facility] area. Parents report that he has been [...] clinic appointment. Reyna Buckley M.D. RM/y11 P [id number] cc: Madhav Cobb M.D. documented in this encounter Plan of Treatment Not on filedocumented as of this encounter Visit Diagnoses Not on filedocumented in this encounter"
--- OUTSIDE RECORDS SUMMARY | ~2019-10-26 | XMS | Encounter Summary ---
Demographics + + + | Address | [address] | | | [place] [address] | + + + | Home Phone [...] [place] | | | | | [address] | | + + + + + Care Team Providers + +------+ + | Care Control And Recovery Special Tactics Name | Role | Phone | + [...] | hydrocephalu | [address] | [place], [place] | | | | | s, lumbar | [address] | [address] | | | | | region | [address] | Phone: | | | | | Procedures | [place], | [phone] | | | | | [place] EST | [place] [address] | Fax: | | | | | PATIENT | Phone: | [phone] | | | | | LEVEL V [place] | [phone] | | | | | | PHYS THERAPY | Fax: | | | | | | EVALUATION | [phone] | | | | | | [place] | | | | | | | OCCUPATIONAL | | | | | | | THERAPY | | | | | | | EVALUATION | | | | | | | [place] | | | | | | | [...] | 04/14/ | Office | [facility] at [facility] 7th | Ngoc Fish, PNP | Right foot infection | | 2011 | Visit | Floor [address] | [address] | (Primary Dx); | | | | St Mailcode: [facility] | [facility], [place] | Lipomyelomeningocele | | | | [facility] [place] | [address] | ; Monoparesis (HCC) | | | | [address] | [phone] | | | | | [phone] | | | +--------+---------+ + + + [...] big toe. Pt here with Aunt from [place] for annual Spina Bifida appt. Area i [...] guarding, +foot odor. Skin colored t o straw hat machine operator colored callous to right ball of foot [...]
--- OUTSIDE RECORDS SUMMARY | ~2019-10-26 | XMS | Encounter Summary ---
Demographics + + + | Address | [address] | | | [place] [address] | + + + | Home Phone [...] [place] | | | | | [address] | | + + + + + Care Team Providers + +------+ + | Care Bulb Weeder Name | Role | Phone | + [...] Clinic | | | | | | [facility], [address] | | | | | | [place], [place] | | | | | | [address] | | | | | | [phone] | | | +--------+ + + + [...] as of this encounter Progress Notes Interface, Tufter Operator In - 01/22/2007 1:04 AM PST CLINIC [...] of urinary tract infection. Dave Malik M.D. Superintendent Track, Urology MICHAEL/yonathan documented in this encounter Plan of Treatment Not on filedocumented as of this encounter Visit Diagnoses Not on filedocumented in this encounter"
--- OUTSIDE RECORDS SUMMARY | ~2019-10-26 | XMS | Encounter Summary ---
Demographics + + + | Address | [address] | | | [place] [address] | + + + | Home Phone [...] [place] | | | | | [address] | | + + + + + Care Team Providers + +------+ + | Care Inspector And Tester Name | Role | Phone | [...] | | bifida | [place] | [facility] | | | | | without | COUNTY | Mailcode: | | | | | mention of | HEALTH DEPT | [facility] | | | | | hydrocephalu | [address] | [place], [place] | | | | | s, lumbar | [place], | [address] | | | | | region | [place] [address] | Phone: | | | | | Neurogenic | Phone: | [phone] | | | | | bladder, NOS | [phone] | Fax: | | | | | Procedures | Fax: | [phone] | | | | | [place] | [phone] | | | | | | US,RETROPERI [...] + + | 05/03/ | Office | [facility] at [facility] 7th | Cy Hutson | Spina Bifida without | | 2007 | Visit | Floor [address] | Jr., PT [address] | Mention of | | | | St Mailcode: [facility] | [facility] | Hydrocephalus, | | | | [facility], [place] | [place] [address] | Lumbar Region; | | | | [address] | | Equinus Deformity of | | | | [phone] | | Foot, Acquired; | | | [...] - 05/08/2008 12:22 PM PDTPHYSICAL THERAPY ADDENDUM [facility] SPINA BIFIDA PROGRAM DATE: 95 PRIMARY CARE [...] Therefore in 10/22 he had surgery at [facility] with Yehuda Cantrell MD, [facility] Orthopedist, performing the surgery. This consisted of: [...] fascia. IDALMIS HUTSON, PT, PCS Physical Therapist [facility] Cy Bach Jr. - 05/03/2008 8:47 AM PDTPHYSICAL THERAPY EVALUATION [facility] SPINA BIFIDA PROGRAM DATE: 95 PRIMARY CARE [...] indicated that he would try to go [facility] today to have this fixed. REPORT OF [...] in any marin r. SERVICES: Gabriel attends [facility] in [place] for orthopedic and orthotic manageme nt. He [...] is intact elsewhere. He reports that the rkkjug-as-a- shoe sensation is much worse (and typically [...] address questions related to this report at [phone]. IDALMIS HUTSON PT, PCS Physical Therapist [facility] documented in this e ncounter Plan of Treatment + + +--------+ + + | Name | Type | Priori | Associated Diagnoses | Order Schedule | | | | ty | | | + + +--------+ + + | [facility] | Procedures | Routin | [...]
--- OUTSIDE RECORDS SUMMARY | ~2019-10-26 | XMS | Encounter Summary ---
Demographics + + + | Address | [address] | | | [place] [address] | + + + | Home Phone [...] [place] | | | | | [address] | | + + + + + Care Team Providers + +------+ + | Care Shelter Advocate Name | Role | Phone | + [...] | 2010 | Visit | [address] | [address] [facility] | NOS; | | | | Mailcode: CDW6 | [address] | Lipomyelomeningocele | | | | Anna | [place], [place] | ; Neurogenic bowel | | | | [place], [place] | [address] | | | | | [address] | [phone] | | | | | [phone] | | | +--------+---------+ + + + [...] abdominal pain, vomiting, or any other questions:. [phone] during clin ic hours 8:30-430 PM Mon through Thursday). After clinic hours call [phone] and ask for companion pediatric urology resident. documented in this encounter [...] Pediatric Urology Clinic Note Patient: Pete Orozco [id number] Date of Visit: 07/28/2011 Attending Provider: Naty [...] complex orthopedic surgery 10/26/07 DR. MERARY AYALA ([facility]) Right ankle/foot orthopedic surgery 06/2009 DR. MERARY AYALA ([facility]) Cystoscopy and bladder augmentation (ileocystoplasty with [...] with saline. Naty Douglas MD, FAAP, FACS petroleum sampler Pediatric Urology docume nted in this encounter [...]
--- OUTSIDE RECORDS SUMMARY | ~2019-10-26 | XMS | Encounter Summary ---
Demographics + + + | Address | [address] | | | [place] [address] | + + + | Home Phone [...] Author + + + | Author | [facility] | + + + | Organization | [facility] | + + + | Address | Unknown | + + + | Phone | Unavailable | + + + Support + + + + + | Name | Relationship | Address | Phone | + + + + + | Sarahi Orozco | ECON | [address] | | | | | [place] | | | | | [address] | | + + + + + Care Team Providers + +------+ + | Care Optical Sales Associate Name | Role | Phone [...] | 05/09/ | Telephone | [facility] at [facility] 7th | Enriqueta, | Support equipment | | 2008 | | Floor [address] | Neli, APPRAISAL SPECIALIST [address] | | | | St Mailcode: [facility] | [address] | | | | | [facility] [place], [place] | Rd [place], [place] | | | | | [address] | [address] | | | | | [phone] | | | +--------+ + + + [...]
--- OUTSIDE RECORDS SUMMARY | ~2019-10-26 | XMS | Encounter Summary ---
Demographics + + + | Address | [address] | | | [place] [address] | + + + | Home Phone [...] [place] | | | | | [address] | | + + + + + Care Team Providers + +------+ + | Care Pot Builder Name | Role | Phone | + +------+ + | Dajuan Jerome MD | PCP | | + +------+ + Encounter Details +--------+ + + + + | Date | Type | Department | Care Team | Description | +--------+ + + + + | 03/11/ | Results | [facility] at [facility] | Robert Johnson MD | | | 2006 | Only | Floor [address] | [address] | | | | | St Mailcode: [facility] | [place], [place] | | | | | [facility] [place] | [address] | | | | | [address] | [phone] | | | | | [phone] | | | +--------+ + + + [...]
--- OUTSIDE RECORDS SUMMARY | ~2019-10-26 | XMS | Encounter Summary ---
Demographics + + + | Address | [address] | | | [place] [address] | + + + | Home Phone [...] [place] | | | | | [address] | | + + + + + Care Team Providers + +------+ + | Care Case Supervisor Name | Role | Phone | [...] as of this encounter Progress Notes Interface, Debt Counselor In - 06/14/2005 7:10 PM PDTClinic Date: [...] clinic. Raul Zamora Physical Therapist WF/[id number] signed by Interface, Debt Counselor In at 06/14/2005 7:10 PM PDTdoc umented in this encounter Plan of Treatment Not on filedocumented as of this encounter Visit Diagnoses Not on filedocumented in this encounter"
--- OUTSIDE RECORDS SUMMARY | ~2019-10-26 | XMS | Encounter Summary ---
Demographics + + + | Address | [address] | | | [place] [address] | + + + | Home Phone [...] [place] | | | | | [address] | | + + + + + Care Team Providers + +------+ + | Care Wrister Name | Role | Phone | + +------+ + PCP | Unavailable | + +------+ + Encounter Details +--------+ + + + + | Date | Type | Department | Care Team | Description | +--------+ + + + + | 07/02/ | Office | [facility] 7th | Marcio, | | | 2004 | Visit-ECX | Floor [address] | MD Reyna [address] | | | | | St Mailcode: [facility] | [facility] | | | | | [facility] [place], [place] | [place], [place] | | | | | [address] | [phone] | | | | | [phone] | | | +--------+ + + + [...]
--- OUTSIDE RECORDS SUMMARY | ~2019-10-26 | XMS | Encounter Summary ---
Demographics + + + | Address | [address] | | | [place] [address] | + + + | Home Phone [...] Author + + + | Author | [facility] | + + + | Organization | [facility] | + + + | Address | Unknown | + + + | Phone | Unavailable | + + + Support + + + + + | Name | Relationship | Address | Phone | + + + + + | Sarahi Orozco | ECON | [address] | | | | | [place] | | | | | [address] | | + + + + + Care Team Providers + +------+ + | Care Goldsmith Apprentice Name | Role | Phone | + +------+ + | Dajuan Jerome MD | PCP | | + +------+ + Encounter Details +--------+ + + + + | Date | Type | Department | Care Team | Description | +--------+ + + + + | 02/13/ | Discharge | Allergy Clinic at | Summary, Discharge | D/C Summary ODDS | | 1995 | Summary-Tra | [place] [address] | | | | | nscribed | [address] | | | | | | Mailcode: OP34 [facility] | | | | | | [place] | | | | | | [facility] | | | | | | [place] [address] | | | | | | [phone] | | | +--------+ + + + [...] as of this encounter Discharge Summaries Interface, Sales Specialist In - 01/22/2007 7:15 AM PST [address] [address] [facility] MEDICAL SUMMARY OF HOSPITALIZATION Med Rec No.: [id number] Admission Date: 02/09/96 Name: Pete Orozco Discharge Date: 02/14/96 STAFF PHYSICIAN: Shiraz Vance Jr., M.D., F.A.A.P. Cancer Center Director, Neurosurgery and Pediatrics PRINCIPAL FINAL DIAGNOSIS: Lipomyomeningocele. PRINCIPAL PROCEDURE: Repair of lipomyomeningocele. 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 The patient was noted to have a mass over his lumbosacral area at delivery. His parents reported that the mass increased in size. He was seen by his primary care physician in [place], who referred the patient to Dr. Vance for evaluation. The patient was worked up by Dr. Vance and found to have a lipomyelomeningocele and was thus sent to the Operating Room for correction of this. HOSPITAL COURSE: The patient was brought to the Operating Room where he underwent repair of the lipomyelomeningocele. He tolerated the procedure well. Postoperatively, he remained in the Pediatric Intensive Care Unit for observation. He was then transferred to the floor, as there were no significant postoperative complications. The patient had one minor complication, in that he had some problems with urination. A Lockett catheter was left in place and Urology was consulted. They will follow the patient on an outpatient basis. This has been arranged with them. They also recommended prophylactic Macrodantin. On February 13, the patient was in good condition and was thus discharged to home. At the time of discharge, the patient's wound was clean, dry and intact and was healing without any signs of infection. CONDITION ON DISCHARGE: Good. DISCHARGE INSTRUCTION(S): Diet is regular, activity as tolerated. The patient will follow-up with a renal ultrasound on February 14 as an outpatient. He will follow-up with Pediatric Urology, Dr. Malik, on February 15 and follow-up with Dr. Vance in 2 weeks. Humberto Bills M.D. Senior Manager [employer], General Surgery Shiraz Vance Jr., Ludwig., F.A.A.P. Cancer Center Director, Neurosurgery and Pediatrics /sera A cc: GEFOF NG MD [address] [place] [address] documented in this encounter Plan of Treatment Not on filedocumented as of this encounter Visit Diagnoses Not on filedocumented in this encounter"
--- OUTSIDE RECORDS SUMMARY | ~2019-10-26 | XMS | Encounter Summary ---
Demographics + + + | Address | [address] | | | [place] [address] | + + + | Home Phone [...] [place] | | | | | [address] | | + + + + + Care Team Providers + +------+ + | Care Quick Print Operator Name | Role | Phone | [...] | | | | mention of | [place], [place] | | | | | | hydrocephalu | [address] | | | | | | s, lumbar | Phone: | | | | | | region | [phone] | | | | | | Neurogenic | Fax: | | | | | | bladder, NOS | [phone] | | | | | | Neurogenic [...] + + + + | 01/21/ | Tractor Operator Helper | [facility] at [facility] 7th | Robert Johnson MD | Lipomyelomeningocele | | 2010 | | Floor [address] | [address] | ; Neurogenic | | | | St Mailcode: [facility] | [place], [place] | bladder, NOS; | | | | [facility] [place] | [address] | Neurogenic bowel | | | | [address] | [phone] | | | | | [phone] | | | +--------+ + + + [...]
--- OUTSIDE RECORDS SUMMARY | ~2019-10-26 | XMS | Encounter Summary ---
Demographics + + + | Address | [address] | | | [place] [address] | + + + | Home Phone [...] [place] | | | | | [address] | | + + + + + Care Team Providers + +------+ + | Care Churn Driller Helper Name | Role | Phone | [...] | [address] | MD Jos [address] | | | | | Loop Mailcode: L588 | Nasir Tineo [place], | | | | | Physician's | [place] [address] | | | | | [address] | [phone] | | | | | [place], [place] | | | | | | [address] | | | | | | [phone] | | | +--------+ + + + [...]
--- OUTSIDE RECORDS SUMMARY | ~2019-10-26 | XMS | Encounter Summary ---
Demographics + + + | Address | [address] | | | [place] [address] | + + + | Home Phone [...] [place] | | | | | [address] | | + + + + + Care Team Providers + +------+ + | Care Certified Pathology Assistant Name | Role | Phone | + +------+ + | Dajuan Jerome MD | PCP | | + +------+ + Reason for Visit + + + | Reason | Comments | + + + | Follow-up encounter | | + + + Consultation (Routine) [...] | | | | hydrocephalu | [address] | [place], [place] | | | | | s, lumbar | [place], | [address] | | | | | region | [place] [address] | Phone: | | | | | Neurogenic | Phone: | [phone] | | | | | bladder, NOS | [phone] | Fax: | | | | | Procedures | Fax: | [phone] | | | | | [place] | [phone] | | | | | | US,RETROPERI [...] | 04/21/ | Office | [facility] at [facility] 7th | Anita Lopez, | Spina Bifida without | | 2006 | Visit | Floor [address] | PNP [address] | Mention of | | | | St Mailcode: [facility] | [facility] | Hydrocephalus, | | | | [facility] [place] | [place], [place] | Lumbar Region; | | | | [address] | [address] | Neurogenic Bladder, | | | | [phone] | [phone] | NOS; Neurogenic | | | | [...] | Blood Pressure | 102/62 | 04/21/2007 10:38 AM | | | | | PDT | | + + + + + | Pulse | 95 | 04/21/2007 10:38 AM | | | | | PDT [...] 32.9 kg (72 lb 8.5 | 04/21/2007 10:38 AM | | | | oz) | PDT | | + + + + + | Height | 144.2 cm (4' 8.77") | 04/21/2007 10:38 AM | | | | | PDT | | + + + + + | Body Mass Index | 15.82 | 04/21/2007 10:38 AM | | | | | PDT | | + + + + + documented in this encounter Progress Notes Anita Lopez - 04/21/2007 2:36 PM PDTFormatting of this note might be different from t [facility] original. Spina Bifida Clinic Urology Ambulatory Treatment Record Pete Luz Orozco is here today for routine urologic follow-up. History: Age: 11 Yrs 4 Mos Level of Lesion: lumbosacral lipomyelomeningocele Ambulatory Status: Full Catheterization Program: only does CIC once per day with a 10 mozambican straight c atheter. He leaks inbetween and at night (if he does not cath before bed). He will void in t toilet with abdominal pressure or just leak. Urinary Infections: None in over 2 years. Continence: Leaks inbetween as he only is on CIC once per day (he is supposed to cath at 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 He will often sit and try to have a bowel movement with abdominal pain. 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 0 cm (20.87") Abdomen: soft, non-tender : circumcised phallus, testes descended bilateral. No breakdown Back: well healed surgical scar. Lax anal tone Skin: no breakdown Radiology (include date): Urodynamics: None [facility]1996: No [facility] Renal/bladder ultrasound: 04/21/07:Views of the pelvis demonstrate a normal urinary bladder. The bladder wall thickness is normal without focal abnormality. The estimated bladder volume at the beginning of the examination was 123.7 cc. The patient catheterized the bladder at the conclusion of the study. The postvoid volume measures approximately 5.5 cc. There is no distal uretere ctasis. The right kidney is normal in size, cortical echogenicity, and corticomedullary differentia tion. The right kidney measures 8 x 4.5 x 4.5 cm, 84.5 cc in volume. There is no focal abnor mality or hydronephrosis. The left kidney is normal in size, cortical echogenicity, and corticomedullary differentiat ion. The left kidney measures 8.7 x 3.8 x 4.5 cm, 77.7 cc in volume. There is no focal abnor mality or hydronephrosis. Mild pre-catheterization pelviectasis noted on the prior study is not seen currently. IMPRESSION: Normal ultrasound of the kidneys and bladder. DMSA/MAG3: None Laboratory (include date): UA: pH 5.0, specific gravity 1.010 and is chemically normal. Assessment: 11 year old male with lipomyelomeningocele who is not taking his Ditropan regul manuel and is not on a regular CIC schedule secondary to compliance issues. Plan: CIC at least 4 times per day, ideally every 4-5 hours, Ditropan 5 mg PO BID-TID. Had a long discussion with both Pete and his mom. Payal needs to be on regular CIC schedul e. He verbalized understanding and mom will make sure that he follows it. The renal u/s dem onstrated a little growth from previous ultrasound. Follow up in one year with [facility] or sooner if with issues. documented in this encou nter Plan of Treatment + +---------+--------+ + + | Name | Type | Priori | Associated Diagnoses | Order Schedule | | | | ty | | | + +---------+--------+ + + | US KIDNEY & BLADDER | Imaging | Routin | Spina Bifida | Expected: 04/21/2008 | | | | e | without [...]
--- OUTSIDE RECORDS SUMMARY | ~2019-10-26 | XMS | Encounter Summary ---
Demographics + + + | Address | [address] | | | [place] [address] | + + + | Home Phone [...] [place] | | | | | [address] | | + + + + + Care Team Providers + +------+ + | Care Game Farm Supervisor Name | Role | Phone | + +------+ + | Dajuan Jerome MD | PCP | | + +------+ + Encounter Details +--------+ + + + + | Date | Type | Department | Care Team | Description | +--------+ + + + + | 04/20/ | Transcribed | Allergy Clinic at | Dictation, Other | Transcribed | | 1995 | | [facility] [address] | | | | | | Ashley Acevedo | | | | | | Mailcode: OP34 [facility] | | | | | | Cyril Moon | | | | | | [facility] | | | | | | [place] [address] | | | | | | [phone] | | | +--------+ + + + [...] as of this encounter Progress Notes Interface, Associate Professor Of History In - 02/10/2007 5:02 AM PDT [facility] [address], [place], [place] [address] April 20, 1996 MUM NG MD [address] [place] [id number] RE:Pete Orozco MR#:[id number] Dear Umm: Today we saw zepn-ttyrj-lqr Pete for a full evaluation in Spina Bifida Program. Both parents accompany and medical records were available from the hospitalization for surgical repair. 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 The parents report that recent evaluation by therapists from [facility] revealed some left-sided preference, right-sided weakness. Past Medical History: The lipomeningocele was unexpected at . Ultrasound had been done at about six months' gestation for dating and all appeared normal. Delivery was apparently uneventful and a lipomeningocele was apparent. You referred him for evaluation to Dr. Shiraz Vance, Pediatric Neurosurgeon. Pete was hospitalized at seven weeks of age at [facility] from 02/08 through 02/14/96 for exploration and [...] Senokot syrup. Family Situation: Intact family. Well eoeh-qrxn-ccy brother. Parents describe him as an easy and pleasant personality who smiles much of the time. Development: He coos interactively, and imitates facial expressions. He brings his hands to midline. he is starting to attempt to roll over. Diet: He is on Enfamil formula. Growth curve is very nice. He has had first tastes of cereal, well tolerated. He is served by [email or web address]. PHYSICAL EXAMINATION: Weight 5.72 kg (25th percentile), [...] at the time that he starts walking. [employer] [facility] ([facility]) is already involved and will be providing services starting in July. Today, he will be seen in a comprehensive fashion by all of the affiliated services. He will have urinalysis today, and is scheduled to be seen by Dave Malik later this month. I think we can see him in [place] at [facility] in August, and have a full evaluation here in [place] again in six months. Please feel free to call at any time if you have any questions, Umm. Thanks for the opportunity to see Pete again. Please feel free if we can offer any additional information, liaison, or coordination. Sincerely, Robert Johnson M.D. Yarding And Folding Machine Operator, Pediatrics SHAYNE /shantel P C: [birth year] suzanna cc: PARENTS [facility] documented in this encounter Plan of Treatment Not on filedocumented as of this encounter Visit Diagnoses Not on filedocumented in this encounter
--- OUTSIDE RECORDS SUMMARY | ~2019-10-26 | XMS | Encounter Summary ---
Demographics + + + | Address | [address] | | | [place] [address] | + + + | Home Phone [...] [place] | | | | | [address] | | + + + + + Care Team Providers + +------+ + | Care Secret Code Expert Name | Role | Phone | + [...] Consultation | | | | cribed | [address] | | | | | | Loop Mailcode: | | | | | | PV[address] Physician's | | | | | | [place], | | | | | | [place] [address] | | | | | | [phone] | | | +--------+ + + + [...] as of this encounter Progress Notes Interface, Railroad Hand In - 01/26/2007 3:12 AM PDT CLINIC [...] Physical Therapist LUC /areli P cc: nterface, Railroad Hand In - 01/26/2007 3:12 AM PDT CLINIC DATE: 10/19/[birth year] CLINIC NAME: [facility] CL[facility]IC DISCIPLINE: PEDIATRIC UROLOGY Pete follows up today. He is a 35-mlqdp-vkt male with a history of lipomyelomeningocele of [...] Pettit M.D. Resident, Urology Dave Malik M.D. Paste Worker, Urology B:vitaliy nterface, Railroad Hand In - 01/26/2007 3:12 AM PDT CLINIC [...] other needs. He lives at home in [place] with his parents and 5-year-old half-brother. Nicky is currently working outside the home as a lithoplate maker at a restaurant and Yamil is driving a truck for [employer]. When both of Pete's parents are at work, his maternal aunt provides child day care center worker. Medical coverage is provided through the [place] [facility]. The managed care program is [employer] [place]. Nicky reports that she thinks there will be private health insurance through [employer] next year and this social service liaison will monitor that. Pete was determined non-eligible for SSI and Nicky reports that he is not receiving any Early Intervention services, either. senior laboratory technician is Dr. Umm Kaufman. There are no social work concerns or activities identified at this time, although this social service liaison remains available as needed. Neli Robison LCSW Doctor Of Nurse Anesthesia JUNE/destiny A cc: nterface, Railroad Hand In - 01/26/2007 3:12 AM PDT CLINIC [...] through this clinic. Shiraz Vance Jr., M.D. Paste Worker, Neurosurgery PATRICK/minnie nterface, Railroad Hand In - 01/26/2007 3:12 AM PDT CLINIC DATE: 10/19/96 CLINIC NAME: [facility] CLINIC DISCIPLINE: ORTHOPEDICS Gabriel is a isa-zrfce-lse boy who is followed for his lipomeningocele. [...] his next full appointment. Gilbert Romero M.D. Stars Specialist, Orthopedics and Rehabilitation ANAMARIA:ana nterface, Railroad Hand In - 01/26/2007 3:12 AM PDT CLINIC DATE: 10/19/96 CLINIC NAME: [facility] CLINIC DISCIPLINE: NURSING Pete is a 79-sdrdm-mqi male with a lumbosacral lipomyelomeningocele repaired . He is accompanied by both parents for todays full evaluation. HEALTH CARE MAINTENANCE: Pete receives his primary care from Dr. Kaufman in [place]. The parents report that his immunizations are [...] six months. Annabelle Burnett R.N., B.S.N. Nurse Head School Custodian AYAKA /antoni A cc: documented in this encounter Plan of Treatment Not on filedocumented as of this encounter Visit Diagnoses Not on filedocumented in this encounter"
--- OUTSIDE RECORDS SUMMARY | ~2019-10-26 | XMS | Encounter Summary ---
Demographics + + + | Address | [address] | | | [place] [address] | + + + | Home Phone [...] [place] | | | | | [address] | | + + + + + Care Team Providers + +------+ + | Care Industrial Cleaning Technician Name | Role | Phone | [...] | Procedures | [address] | [place], [place] | | | | | [place] ESTAB | [address] | [address] | | | | | PATIENT | [address] | Phone: | | | | | LEVEL 5 MM, | [place], | [phone] | | | | | [place] | [place] [address] | Fax: | | | | | | Phone: | [phone] | | | | | | [phone] | | | | | | | Fax: | | | | | | | [phone] | | +--------+--------+ + + + + Encounter Details +--------+---------+ + + + | Date | Type | Department | Care Team | Description | +--------+---------+ + + + | 04/07/ | Office | [facility] at [facility] 7th | Cy Hutson | Lipomyelomeningocele | | 2010 | Visit | Floor [address] | Jr., PT [address] | ; Contracture of | | | | St Mailcode: CD[facility] | [address] | ankle and foot | | | | [facility] [place] | [place], [place] [facility] | joint; Monoparesis | | | | [address] | | ([facility]); Abnormal gait | | | | [phone] | | | +--------+---------+ + + + [...] t from the original. PHYSICAL THERAPY EVALUATION [facility] SPINA BIFIDA PROGRAM DATE OF SERVICE: [...] corrective surgery on the right foot, at [facility]. He just had the hardware removed immediately [...] complex orthopedic surgery 10/26/07 DR. MERARY AYALA ([facility]) Right ankle/foot orthopedic surgery 06/2009 DR. MERARY AYALA ([facility]) FAMILY AND PATIENT CONCERNS: Pete and his father report resolution of the problems with his balance and gait, and a much decreased incidence of falling. REPORT OF PAIN: Upon inquiry there was no other pain reported and none evident. SERVICES: Pete is not currently involved in any Physical Therapy (PT) services. He davinaai adrianna enrolled at [facility] in [place] for orthopedic care and orthotic management. GENERAL [...] PT, PCS Physical Therapist Pediatric Clinical Specialist [facility] [phone] [email or web address] documented in is encounter Plan of Treatment [...]
--- OUTSIDE RECORDS SUMMARY | ~2019-10-26 | XMS | Encounter Summary ---
Demographics + + + | Address | [address] | | | [place] [address] | + + + | Home Phone [...] [place] | | | | | [address] | | + + + + + Care Team Providers + +------+ + | Care Fresh Work Inspector Name | Role | Phone | + +------+ + PCP | Unavailable | + +------+ + Encounter Details +--------+ + + + + | Date | Type | Department | Care Team | Description | +--------+ + + + + | 02/07/ | Results | | Other, Faculty | | | 1995 | Only | | [phone] | | +--------+ + + + + [...] Pulse | | | | | | [id number]%Diagnosis: | | | | | | LIPOMYELOMENINGOCELE [...] Route | | | | | | [id number] [address] | | | | | | [...] Consciousness | | | | | | [id number] | | | | | | 142 28 | | | | | | 98% 05707 140 | | | | | | 28 98% | | | | | | 37716 132 | | | | | | 28 98% | | | | | | 49963 140 26 | | | | | | 96% | | | | | | 60347 140 26 | | | | | | 95% [address] | | | | | | 142 27 | | | | | | 96% 11806 132 | | | | | | [...] | | + +---------+ + + | [facility] DEPARTMENT OF | | | | [...] | | + +---------+ + + | [facility] DEPARTMENT OF | | | | [...]
--- OUTSIDE RECORDS SUMMARY | ~2019-10-26 | XMS | Encounter Summary ---
Demographics + + + | Address | [address] | | | [place] [address] | + + + | Home Phone [...] [place] | | | | | [address] | | + + + + + Care Team Providers + +------+ + | Care Grazing Examiner Name | Role | Phone | + +------+ + | Umm Kaufman MD | PCP | | + +------+ + Encounter Details +--------+ + + + + | Date | Type | Department | Care Team | Description | +--------+ + + + + | 04/14/ | Hospital | Radiology at [facility] | | | | 2011 | Encounter | [address] [facility] | | | | | | Mailcode: L340 | | | | | | [place] | | | | | | [place] | | | | | | [address] | | | | | | [phone] | | | +--------+ + + + [...] | | + +---------+ + + | [facility] DEPARTMENT OF | | | [...]
--- OUTSIDE RECORDS SUMMARY | ~2019-10-26 | XMS | Encounter Summary ---
Demographics + + + | Address | [address] | | | [place] [address] | + + + | Home Phone [...] [place] | | | | | [address] | | + + + + + Care Team Providers + +------+ + | Care Veterinary Technologist Name | Role | Phone | + [...] as of this encounter Progress Notes Interface, Zipper Joiner In - 06/09/2006 1:03 AM [facility] [place] [address] [place] [address] or May 12, 2003 Robert Johnson M.D. [facility] Spina Bifida Clinic RE: ADAMA OROZCO MR #: [id number] Dear Robert: I had the pleasure of [...] in his care. Sincerely, Soha Nettles M.D. Strap Setter, Pediatric Neurosurgery [place] / [id number] / [id number] / [id number] / Tdocumented in this encounter Plan of Treatment Not on filedocumented as of this encounter Visit Diagnoses Not on filedocumented in this encounter"
--- OUTSIDE RECORDS SUMMARY | ~2019-10-26 | XMS | Encounter Summary ---
Demographics + + + | Address | [address] | | | [place] [address] | + + + | Home Phone [...] [place] | | | | | [address] | | + + + + + Care Team Providers + +------+ + | Care Industrial Relations Manager Name | Role | Phone | + +------+ + | No Pcp Per Patient | PCP | Unavailable | + +------+ + Encounter Details +--------+ + + + + | Date | Type | Department | Care Team | Description | +--------+ + + + + | 03/25/ | Ancillary | Registration [address] | | | | 2006 | Registratio | [address] [facility] | | | | | n | Rd Mailcode: RPB07 | | | | | | [place], [place] | | | | | | [address] | | | | | | [phone] | | | +--------+ + + + [...]
--- OUTSIDE RECORDS SUMMARY | ~2019-10-26 | XMS | Encounter Summary ---
Demographics + + + | Address | [address] | | | [place] [address] | + + + | Home Phone [...] [place] | | | | | [address] | | + + + + + Care Team Providers + +------+ + | Care Tool Grinder Operator External Name | Role | Phone | + +------+ + | No Pcp Per Patient | PCP | Unavailable | + +------+ + Encounter Details +--------+ + + + + | Date | Type | Department | Care Team | Description | +--------+ + + + + | 03/25/ | Ancillary | Registration [address] | | | | 2006 | Registratio | [address] [facility] | | | | | n | Rd Mailcode: RPB07 | | | | | | [place], [place] | | | | | | [address] | | | | | | [phone] | | | +--------+ + + + [...]
--- OUTSIDE RECORDS SUMMARY | ~2019-10-26 | XMS | Encounter Summary ---
Demographics + + + | Address | [address] | | | [place] [address] | + + + | Home Phone [...] [place] | | | | | [address] | | + + + + + Care Team Providers + +------+ + | Care Breaker Up Name | Role | Phone | + +------+ + | No Pcp Per Patient | PCP | Unavailable | + +------+ + Encounter Details +--------+ + + + + | Date | Type | Department | Care Team | Description | +--------+ + + + + | 12/27/ | Ancillary | Registration [id number] | | | | 2007 | Registratio | [address] [facility] | | | | | n | Rd Mailcode: RPB07 | | | | | | [place], [place] | | | | | | [address] | | | | | | [phone] | | | +--------+ + + + [...]
--- OUTSIDE RECORDS SUMMARY | ~2019-10-26 | XMS | Encounter Summary ---
Demographics + + + | Address | [address] | | | [place] [address] | + + + | Home Phone [...] [place] | | | | | [address] | | + + + + + Care Team Providers + +------+ + | Care Silver Cleaner Name | Role | Phone | [...] | | | | | Maritza Ferreira [place], | | | | | | [place] [address] | | | +--------+ + + + [...] | + + | 2004 10:07 AM [facility] Anesthesia PostOp Report | | | | Patient: ADAMA OROZCO J Med Rec: [id number] Bonilla M Bdate: 1995 | | Date/Time Data | | Entered Into [facility] | | Anesth PostOp | | Surgery Date [id number] 12/19/04 10:07 | | [id number] 02/21/03 09:46 | | Anesthesiologist BENIGNO KNUTSON 12/19/04 10:07 | | RAMON CARRANZA 02/21/03 09:46 | | Resident Anesthesiolog EDMUNDO TRACY 12/19/04 10:07 | | BECKI GUZMAN 02/21/03 09:46 | | Complications | [...]
--- OUTSIDE RECORDS SUMMARY | ~2019-10-26 | XMS | Encounter Summary ---
Demographics + + + | Address | [address] | | | [place] [address] | + + + | Home Phone [...] [place] | | | | | [address] | | + + + + + Care Team Providers + +------+ + | Care Cardiac Technologist Name | Role | Phone | [...] | | | bifida | [place] | [facility] | | | | | without | COUNTY | Mailcode: | | | | | mention of | HEALTH DEPT | [facility] | | | | | hydrocephalu | [address] [place] [address] | [place], [place] | | | | | s, lumbar | [place], | [address] | | | | | region | [place] [address] | Phone: | | | | | Neurogenic | Phone: | [phone] | | | | | bladder, NOS | [phone] | Fax: | | | | | Procedures | Fax: | [phone] | | | | | [place] | [phone] | | | | | | [place],RETROPERI [...] | 05/03/ | Office | [facility] at [facility] 7th | Anita Lopez, | Spina Bifida without | | 2007 | Visit | Floor [address] | PNP [address] | Mention of | | | | St Mailcode: [facility] | [address] | Hydrocephalus, | | | | [facility], [place] | [place], [place] | Lumbar Region; | | | | [address] | [address] | Neurogenic Bladder, | | | | [phone] | [phone] | NOS; Neurogenic | | | | [...] Hospitalizations: None since last being seen Surgeries: HOOP EXPANDER Shunt: no History of 2 spinal cord [...]
--- OUTSIDE RECORDS SUMMARY | ~2019-10-26 | XMS | Encounter Summary ---
Demographics + + + | Address | [address] | | | [place] [address] | + + + | Home Phone [...] [place] | | | | | [address] | | + + + + + Care Team Providers + +------+ + | Care Clamp Truck Driver Name | Role | Phone | [...] as of this encounter Progress Notes Interface, Field Checker In - 11/10/2006 5:08 AM PSTCLINIC DATE: [...] ankle. It is unclear to this social service assistant whether he is going to need to be monitored for issues regarding neurogenic bowel or bladder at this time. Pete and his parents and two siblings (larissa Coleman is a full sibling to Pete and his older brother, aDve, is a half-sibling) moved to [place] due to an employment opportunity for Yamil. Pete has medical coverage through the [place] [employer] and [employer] [place] is the managed care program. Dr. Rusty Montero is the new primary care physician. Pete's family is in the process of applying for SSI on Pete's behalf; this social service assistant assisted with completion of paperwork a few weeks ago. The family is interested in enrolling Pete in [employer] but is unsure where to pursue this, and this social service assistant will identify where [employer] applications for [place] residents can be found and will be in contact with the family. There are no other Social Work activities planned at this time although Social Work remains available if needed. Neli Robison L.C.S.W. Bill Peddler BD:julius Jaswinder, Field Checker In - 11/10/2006 5:08 AM PSTCLINIC DATE: 01/16/1999 CLINIC NAME:[facility] BIFIDA CLINIC DISCIPLINE: ORTHOPEDICS HISTORY: Pete is now 3. He is followed for his lipomeningocele. He has been ambulating without any difficulties lately. Their only is of occasional nighttime back pain. PHYSICAL EXAMINATION: Examination shows that Pete is fully active for a ururs-fccb-mwk. He is able to toe walk without [...] full appointment. Gilbert Romero M.D. Kaleigh sandee, Field Checker In - 11/10/2006 5:08 AM PSTCLINIC DATE: [...] services in the past while living in [facility] but no longer receives services. Father indicates [...] Simms M.S., 0.T.R./L. Occupational Therapist CHRISTINA/minnie Interface, Field Checker In - 11/10/2006 5:08 AM PSTCLINIC DATE: [...] imaging as well. Shiraz Vance M.D., Kian. Switch Operators Supervisor, Department of Neurological Surgery and Pediatrics Anne Interface, Field Checker In - 11/10/2006 5:08 AM PSTCLINIC DATE: [...] status. Raul Zamora Physical Therapist LUC/minnie Interface, Field Checker In - 11/10/2006 5:08 AM PSTCLINIC DATE: [...]
--- OUTSIDE RECORDS SUMMARY | ~2019-10-26 | XMS | Encounter Summary ---
Demographics + + + | Address | [address] | | | [place] [address] | + + + | Home Phone [...] [place] | | | | | [address] | | + + + + + Care Team Providers + +------+ + | Care Change Over Name | Role | Phone | + [...] + + | 04/14/ | Emergency | [facility] Emergency | [place], | | | 2011 | | Department [address] | [address] [facility] | | | | | [address] | [facility] [address] | | | | | [facility] | [place], [place] | | | | | [place], [place] | [address] | | | | | [address] | [phone] | | | | | [phone] | | | +--------+ + + + [...] doctor if you can take an o gtc-qdt-tzftixa medicine. If your doctor told you to [...] to the Emergency Room", log into your [employer] account at [email or web address]. You can enter [id number] in the Zipari" se arch box. Not on [employer]? Review the Zalandohart section of your After Visit Summary for directions on ho w to sign up. [phone] [email or web address]. Care instructions adapted under license by [facility] & [facility]. This care instruction is for use with your licensed healthCanwest e professional. If you have questions about a medical condition or this instruction, always ask your healthcare professional. [email or web address] disclaims any warranty or liabili ty for your use of this information. Content Version: 9.3.22070; Last Revised: September 08, 2011 documented in [...] | + +---------+ + + | [facility] DEPARTMENT OF | | | | | [...] | + + + + + | [facility] DEPARTMENT OF | [address] | [place] [address] | | | PATHOLOGY | [address] [...] | + + + + + | [facility] | [address] | [place] [address] | | | PATHOLOGY | [address] [...] Way Lab) | [facility] | | [facility] [address] | REGIONAL | | [place] [address] | LABORATORY | + + + + + + + + | Performing | Address | City/State/Zipcode | Phone Number | | Organization | | | | + + + + + | [facility] | [address] | [place] [address] | | | LABORATORY | | | [...] DEPARTMENT OF | [address] | [place] [address] | | | PATHOLOGY | [address] [...] | + + + + + | [facility] DEPART[facility] | [address] | [place] [address] | | | PATHOLOGY | [address] [...]
--- OUTSIDE RECORDS SUMMARY | ~2019-10-26 | XMS | Encounter Summary ---
Demographics + + + | Address | [address] | | | [place] [address] | + + + | Home Phone [...] [place] | | | | | [address] | | + + + + + Care Team Providers + +------+ + | Care User Acceptance Tester Name | Role | Phone | + +------+ + PCP | Unavailable | + +------+ + Encounter Details +--------+ + + + + | Date | Type | Department | Care Team | Description | +--------+ + + + + | 11/17/ | Results | [facility] at [facility] 7th | Marc[place], | | | 2001 | Only | Floor [address] | MD Reyna [address] | | | | St Mailcode: [facility] | [facility] | | | | | [facility] [place], [place] | [place], [place] | | | | | [address] | [address] | | | | | [phone] | | | +--------+ + + + [...] | X-RAY SCOLI SPINE | Routin | 11/17/2001 | | Results for this | | ENTIRE 36 1 VIEW | e | 3:20 PM | | procedure are in the | | | | PST | | results section. | + +--------+ + + + documented in this encounter Results SCOLI SPINE ENTIRE 36 1 VIEW (11/17/2001 3:20 PM PST) + + + + + + | Component | Value | Ref Range | Performed | Pathologist | | | | | At | Signature | + + + + + + | SCOLI SPINE | Radiologist 1: FERMÍN | | | | | ENTIRE 36 | IVÁN Chris-Radiologist | | | | | 1 VIEW | 2: IVÁN KOVACS | | | | | | DotAP VIEW OF COMPLETE | | | | | | SPINE: 11/17/2001 | | | | | | Dictated 11/17/2001 | | | | | | COMPARISON: None. | | | | | | HISTORY: This is a | | | | | | butg-qlvs-zuk male with | | | | | | a history of spina | | | | | | bifida. FINDINGS: There | | | | | | is a 12 degree Silva | | | | | | angle dextroscoliosis | | | | | | measuredfrom the top of | | | | | | T1 through the bottom of | | | | | | L4 pedicles. There | | | | | | islumbosacral spina | | | | | | bifida with segmentation | | | | | | anomalies of the | | | | | | sacrum.The femoral heads | | | | | | are well covered by | | | | | | acetabulum. IMPRESSION: | | | | | | 1. 12 degree | | | | | | dextroscoliosis of the | | | | | | thoracolumbar spine. 2. 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 | | | | | | END OF IMPRESSION: | | | | + + + + + + + + | Specimen | + + | | + + + +---------+ + + | Performing | Address | City/State/Zipcode | Phone Number | | Organization | | | | + +---------+ + + | [facility] DEPARTMENT OF | | | | | RADIOLOGY | | | | + +---------+ + + documented in this encounter Visit Diagnoses Not on filedocumented in this encounter"
--- OUTSIDE RECORDS SUMMARY | ~2019-10-26 | XMS | Encounter Summary ---
Demographics + + + | Address | [address] | | | [place] [address] | + + + | Home Phone [...] [place] | | | | | [address] | | + + + + + Care Team Providers + +------+ + | Care Director Of Casino Marketing Name | Role | Phone | + +------+ + | No Pcp Per Patient | PCP | Unavailable | + +------+ + Encounter Details +--------+ + + + + | Date | Type | Department | Care Team | Description | +--------+ + + + + | 10/25/ | Ancillary | Registration [address] | | | | 2006 | Registratio | [facility] | | | | | n | Rd Mailcode: RPB07 | | | | | | [place], [place] | | | | | | [address] | | | | | | [phone] | | | +--------+ + + + [...]
--- OUTSIDE RECORDS SUMMARY | ~2019-10-26 | XMS | Encounter Summary ---
Demographics + + + | Address | [address] | | | [place] [address] | + + + | Home Phone [...] [place] | | | | | [address] | | + + + + + Care Team Providers + +------+ + | Care Funds Transfer Clerk Name | Role | Phone | + +------+ + | No Pcp Per Patient | PCP | Unavailable | + +------+ + Encounter Details +--------+ + + + + | Date | Type | Department | Care Team | Description | +--------+ + + + + | 04/21/ | Ancillary | Registration [address] | | | | 2006 | Registratio | [facility]INA [facility] | | | | | n | Rd Mailcode: RPB07 | | | | | | [place], [place] | | | | | | [address] | | | | | | [phone] | | | +--------+ + + + [...]
--- OUTSIDE RECORDS SUMMARY | ~2019-10-26 | XMS | Encounter Summary ---
Demographics + + + | Address | [address] | | | [place] [address] | + + + | Home Phone [...] [place] | | | | | [address] | | + + + + + Care Team Providers + +------+ + | Care Clinical Partner Name | Role | Phone | + +------+ + | Umm Kaufman MD | PCP | | + +------+ + Reason for Visit Diagnostic Testing (Routine) +--------+--------+ + + + [...] | | bowel | Maritza Ferreira | [facility] | | | | | [place] of | [place], [place] | for Health | | | | | other | [address] | and Healing, | | | | | specified | Phone: | Building 1, | | | | | sites | [phone] | 3rd Floor | | | | | Procedures | Fax: | [place], [place] | | | | | X-RAY | [phone] | [address] | | | | | CYSTOGRAM, | | Phone: | | | | | VOID | | [phone] | | | | | W/HYDRODYN | | Fax: | | | | | W/URETHRCYST | | [phone] | | | | | & INJECTION | | | +--------+--------+ + + + + Encounter Details +--------+ + + + + | Date | Type | Department | Care Team | Description | +--------+ + + + + | 01/17/ | Hospital | Radiology at [facility] | | | | 2010 | Encounter | [address] [facility] | | | | | | Mailcode: L340 | | | | | | [place] | | | | | | [place], [place] | | | | | | [address] | | | | | | [phone] | | | +--------+ + + + [...]
--- OUTSIDE RECORDS SUMMARY | ~2019-10-26 | XMS | Encounter Summary ---
Demographics + + + | Address | [address] | | | [place] [address] | + + + | Home Phone [...] [place] | | | | | [address] | | + + + + + Care Team Providers + +------+ + | Care Stone Driller Helper Name | Role | Phone [...] Consultation | | | | cribed | [address] | | | | | | Loop Mailcode: | | | | | | [address] Physician's | | | | | | [place], | | | | | | [place] [address] | | | | | | [phone] | | | +--------+ + + + [...] as of this encounter Progress Notes Interface, Vp Production In - 12/26/2006 3:10 AM [facility] DATE: 09/22/97 CLINIC NAME: [facility] DISCIPLINE: SOCIAL WORK Pete is now [age] year, nine months of age. He is a youngster with spina bifida. He has been followed in our [facility] in [place] as well as in [place]. Pete is in the Early Intervention Program through the [facility]. He does attend a toddler group as [...] due in December. Father works as a local company flatbed truck driver for a local company and he is home in the evenings. Mom is unemployed. The parents do not qualify for SSI since the income is too high. They have the [employer], however, for Pete. Dr. Kaufman is the [facility]'s boy's adviser. The parents continue to have some concerns [...] Pete in our clinic. Mariposa Kitchen LCSW Machine Castings Plasterer EM:julius documented in this encounter Plan of Treatment Not on filedocumented as of this encounter Visit Diagnoses Not on filedocumented in this encounter"
--- OUTSIDE RECORDS SUMMARY | ~2019-10-26 | XMS | Encounter Summary ---
Demographics + + + | Address | [address] | | | [place] [address] | + + + | Home Phone [...] [place] | | | | | [address] | | + + + + + Care Team Providers + +------+ + | Care Framing Inspector Name | Role | Phone | + +------+ + PCP | Unavailable | + +------+ + Encounter Details +--------+ + + + + | Date | Type | Department | Care Team | Description | +--------+ + + + + | 05/31/ | Results | Specialty Clinics | Js Deng MD | | | 2001 | Only | at [facility] [address] | [address] | | | | | Lacy Smith | [facility] [place] | | | | | Mailcode:OP14B | [address] | | | | | [place] | [phone] | | | | | [place], [place] | | | | | | [address] | | | | | | [phone] | | | +--------+ + + + [...] Route | | | | | | [id number] VERSED | | | | | | 2 MG IV | | | | | | [id number] | | | | | | NEMBUTAL 90 MG | | | | | | IV [id number] | | | | | | PROPOFOL [...] | + +---------+ + + | [facility] DEPARTMENT OF | | | | [...] | + +---------+ + + | [facility] DEPARTMENT OF | | | | [...] | + +---------+ + + | [facility] DEPARTMENT OF | | | | | RADIOLOGY | | | | + +---------+ + + documented in this encounter Visit Diagnoses Not on filedocumented in this encounter"
--- OUTSIDE RECORDS SUMMARY | ~2019-10-26 | XMS | Encounter Summary ---
Demographics + + + | Address | [address] | | | [place] [address] | + + + | Home Phone [...] [place] | | | | | [address] | | + + + + + Care Team Providers + +------+ + | Care Credit Review Manager Name | Role | Phone | [...] | | Urology | Neurogenic | Umm Salcedo MD | Peds 7 D[address] | | | | | bladder, NOS | PEDS | [address] [facility] | | | | | | SPECIALISTS | | | | | | | OF [place] | Mailcode: | | | | | | [address] | [address] | | | | | | [address] | [place] | | | | | | [address] | [place], [place] | | | | | | [place], | [address] | | | | | | [place] [address] | Phone: | | | | | | Phone: | [phone] | | | | | | [phone] | Fax: | | | | | | Fax: | [phone] | | | | | | [phone] | | +--------+--------+ + + + + Encounter Details +--------+---------+ + + + | Date | Type | Department | Care Team | Description | +--------+---------+ + + + | 02/01/ | Office | Urology -Pediatric | Justice Douglas, | Neurogenic bladder, | | 2011 | Visit | [address] [facility] | [address] [facility] | NOS; | | | | Mailcode: CDW6 | [address] | Lipomyelomeningocele | | | | [place] | [place], [place] | ; Neurogenic bowel; | | | | [place], [place] | [address] | EE-CANCELED | | | | [address] | [phone] | | | | | [phone] | | | +--------+---------+ + + + [...]
--- OUTSIDE RECORDS SUMMARY | ~2019-10-26 | XMS | Encounter Summary ---
Demographics + + + | Address | [address] | | | [place] [address] | + + + | Home Phone [...] [place] | | | | | [address] | | + + + + + Care Team Providers + +------+ + | Care Bailer Operators Supervisor Name | Role | Phone | [...] Clinic | | | | | | [facility], [address] | | | | | | [place], [place] | | | | | | [address] | | | | | | [phone] | | | +--------+ + + + [...] as of this encounter Progress Notes Interface, [employer] Developer In - 01/22/2007 7:15 AM PST CLINIC DATE: 02/16/96 PEDIATRIC UROLOGY CLINIC: PROBLEM LIST: Lipomyelomeningocele. 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 Resident, Urology Dave Malik M.D. [place] [employer], Urology TWF:vitaliy documented in this encounter Plan of Treatment Not on filedocumented as of this encounter Visit Diagnoses Not on filedocumented in this encounter"
--- OUTSIDE RECORDS SUMMARY | ~2019-10-26 | XMS | Encounter Summary ---
Demographics + + + | Address | [address] | | | [place] [address] | + + + | Home Phone [...] [place] | | | | | [address] | | + + + + + Care Team Providers + +------+ + | Care Industrial Sweeper Cleaner Name | Role | Phone | + +------+ + | Dajuan Jerome MD | PCP | | + +------+ + Encounter Details +--------+ + + + + | Date | Type | Department | Care Team | Description | +--------+ + + + + | 03/11/ | Results | [facility] at [facility] | Robert Johnson MD | | | 2006 | Only | Floor [address] | [address] | | | | | St Mailcode: [facility] | [place], [place] | | | | | [facility] [place] | [address] | | | | | [address] | [phone] | | | | | [phone] | | | +--------+ + + + [...]
--- OUTSIDE RECORDS SUMMARY | ~2019-10-26 | XMS | Encounter Summary ---
Demographics + + + | Address | [address] | | | [place] [address] | + + + | Home Phone [...] [place] | | | | | [address] | | + + + + + Care Team Providers + +------+ + | Care Metrologist Name | Role | Phone | + [...] | | bifida | [place] | [facility] | | | | | without | COUNTY | Mailcode: | | | | | mention of | HEALTH DEPT | [facility] | | | | | hydrocephalu | [address] | [place], [place] | | | | | s, lumbar | [place], | [address] | | | | | region | [place] [address] | Phone: | | | | | Neurogenic | Phone: | [phone] | | | | | bladder, NOS | [phone] | Fax: | | | | | Procedures | Fax: | [phone] | | | | | MM,WF | [phone] | | +--------+--------+ + + + + Encounter Details +--------+---------+ + + + | Date | Type | Department | Care Team | Description | +--------+---------+ + + + | 10/02/ | Office | [facility] at 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 PHYSICAL THERAPY EVALUATION [facility] SPINA BIFIDA PROGRAM DATE OF SERVICE: 10/02/2010 [...] complex orthopedic surgery 10/26/07 DR. MERARY AYALA ([facility]) Right ankle/foot orthopedic surgery 06/2009 DR. MERARY AYALA ([facility]) FAMILY AND PATIENT CONCERNS: Pete's father [...] (PT) services. He remai ns enrolled at [facility] in [place] for orthopedic care and orthotic management. He has a follow-up appointment at [facility] on 11/04/10. GENERAL OBSERVATIONS AND BEHAVIOR: Pete [...] the consideration o f Js Deng MD, [facility] Neurosurgery. I did urge him to keep the upcoming 11/04/10 return appointment at [facility]. I did not make specific recommendations for [...] welcome questions related to this report at [phone]. documented in th is encounter Plan of Treatment Not on filedocumented as of this encounter Procedures + +--------+ + + + | Procedure Name | Priori | Date/Time | Associated Diagnosis | Comments | | | ty | | | | + +--------+ + + + | [place] PHYS THERAPY | Routin | 10/09/2010 | | | | EVALUATION | e | 9:07 AM | Lipomyelomeningocele | | | | | PST | Scoliosis | | | | | | Monoparesis ([facility]) | | | | | [...]
--- OUTSIDE RECORDS SUMMARY | ~2019-10-26 | XMS | Encounter Summary ---
Demographics + + + | Address | [address] | | | [place] [address] | + + + | Home Phone [...] [place] | | | | | [address] | | + + + + + Care Team Providers + +------+ + | Care It Investment/Portfolio Manager Name | Role | Phone | [...] + + + + | 06/06/ | Documentati | [facility] at [facility] 7th | Norrissavi, | Spina bifida | | 2008 | on | Floor [address] | Neli, WALL TAPER [address] | | | | | St Mailcode: [facility] | [address] | | | | | [facility], [place] | Rd [place], [place] | | | | | [address] | [address] | | | | | [phone] | | | +--------+ + + + [...]
--- OUTSIDE RECORDS SUMMARY | ~2019-10-26 | XMS | Encounter Summary ---
Demographics + + + | Address | [address] | | | [place] [address] | + + + | Home Phone [...] + + + + + | Sarahi Oroczo | ECON | [address] | | | | | [place] | | | | | [address] | | + + + + + Care Team Providers + +------+ + | Care Spray Machine Tender Name | Role | Phone [...] | | | | | hydrocephalu | [place], [place] | | | | | s, lumbar | [address] | [address] | | | | | region | Phone: | Phone: | | | | | Neurogenic | [phone] | [phone] | | | | | bladder, NOS | Fax: | Fax: | | | | | Neurogenic | [phone] | [phone] | | | | | bowel | [...] | | | | | | | NE COMPLEX | | | | | | | | | | | | | | CYSTOMETROGR | | | | | | | AM NE | | | | | | | ELECTRO-UROF | | | | | | | LOWMETRY, | | | | | | | FIRST NE | | | | | | | ANAL/URINARY | | | | | | | MUSCLE | | | | | | | STUDY NE | | | | | | | INTRAABDOMIN | | | | | | | AL PRESSURE | | | | | | | TEST NE | | | | | | | URETHROCYSTO | | | | | | | GRAM+VOIDING | | | | | | | NE | | | | | | | INJECTION | | | | | | | FOR BLADDER | | | | | | | X-RAY NE | | | | | | [...] | | | bifida | [place] | [facility] [place] [facility] | | | | | without | COUNTY | Mailcode: | | | | | mention of | HEALTH DEPT | [facility] | | | | | hydrocephalu | [address] | [place], [place] | | | | | s, lumbar | [place], | [address] | | | | | region | [place] [address] | Phone: | | | | | Neurogenic | Phone: | [phone] | | | | | bladder, NOS | [phone] | Fax: | | | | | Procedures | Fax: | [phone] | | | | | NE | [phone] | | | | | | [place],RETROPERI [...] | 09/12/ | Office | [facility] at [facility] | Anita Lopez, | Lipomyelomeningocele | | 2008 | Visit | Floor [address] | PNP [address] [facility] | ; Neurogenic | | | | Mailcode: [facility] | [address] | Bladder, NOS; | | | | [facility] [place], [place] | [place], [place] | Neurogenic Bowel | | | | [address] | [address] | | | | | [phone] | [phone] | | | | | | | [...] Bowel Program: No medications Hospitalizations: none Surgeries: BASKET PERSON Shunt: no History of 2 spinal cord [...]
--- OUTSIDE RECORDS SUMMARY | ~2019-10-26 | XMS | Encounter Summary ---
Demographics + + + | Address | [address] | | | [place] [address] | + + + | Home Phone [...] [place] | | | | | [address] | | + + + + + Care Team Providers + +------+ + | Care Saw Superintendent Name | Role | Phone | + [...] Rd | | | | | | [place], [place] | | | | | | [address] | | | | | | [phone] | | | +--------+ + + + [...] + + | CULTURE | Yemi granger (Twin) | | [place] - | | | [...] + | [place] - | [address] | [place] [address] | | | [place] | | | | + + + + + documented in this encounter Visit Diagnoses + + | Diagnosis | + + | Pressure ulcer, other site(707.09) Pressure ulcer, other site | + + documented in this encounter"
--- OUTSIDE RECORDS SUMMARY | ~2019-10-26 | XMS | Encounter Summary ---
Demographics + + + | Address | [address] | | | [place] [address] | + + + | Home Phone [...] [place] | | | | | [address] | | + + + + + Care Team Providers + +------+ + | Care Camp Assistant Name | Role | Phone | + +------+ + | Dajuan Jerome MD | PCP | | + +------+ + Encounter Details +--------+ + + + + | Date | Type | Department | Care Team | Description | +--------+ + + + + | 10/03/ | Hospital | Radiology at [facility] | | | | 2009 | Encounter | [address] [facility] | | | | | | Mailcode: L340 | | | | | | [address] | | | | | | [place], [place] | | | | | | [address] | | | | | | [phone] | | | +--------+ + + + [...] + + | Performing | Address | City/State/[facility] | Phone Number | | Organization | | | | + +---------+ + + | [facility] | | | | | RADIOLOGY [...]
--- OUTSIDE RECORDS SUMMARY | ~2019-10-26 | XMS | Encounter Summary ---
Demographics + + + | Address | [address] | | | [place] [address] | + + + | Home Phone [...] [place] | | | | | [address] | | + + + + + Care Team Providers + +------+ + | Care Risk Officer Name | Role | Phone | + +------+ + | Umm Kaufman MD | PCP | | + +------+ + Encounter Details +--------+ + + + + | Date | Type | Department | Care Team | Description | +--------+ + + + + | 06/10/ | Shower [facility]id | Urology -Pediatric | Justice Douglas, | Neurogenic bladder, | | 2010 | | [address] | [address] [facility] | NOS; | | | | Mailcode: CDW6 | [address] | Lipomyelomeningocele | | | | [place] | [place], [place] | | | | | [place], [place] | [address] | | | | | [address] | [phone] | | | | | [phone] | | | +--------+ + + + [...]
--- OUTSIDE RECORDS SUMMARY | ~2019-10-26 | XMS | Encounter Summary ---
Demographics + + + | Address | [address] | | | [place] [address] | + + + | Home Phone [...] [place] | | | | | [address] | | + + + + + Care Team Providers + +------+ + | Care Sales And Leasing Agent Name | Role | Phone | + +------+ + | No Pcp Per Patient | PCP | Unavailable | + +------+ + Encounter Details +--------+ + + + + | Date | Type | Department | Care Team | Description | +--------+ + + + + | 12/09/ | Ancillary | Registration [address] | | | | 2007 | Registratio | [facility] | | | | | n | [address] Mailcode: RPB07 | | | | | | [place], [place] | | | | | | [address] | | | | | | [phone] | | | +--------+ + + + [...]
--- OUTSIDE RECORDS SUMMARY | ~2019-10-26 | XMS | Encounter Summary ---
Demographics + + + | Address | [address] | | | [place] [address] | + + + | Home Phone [...] [place] | | | | | [address] | | + + + + + Care Team Providers + +------+ + | Care Coning Machine Operator Name | Role | Phone [...] as of this encounter Progress Notes Interface, Incinerator Plant Laborer In - 05/26/2006 1:08 AM PDTCLINIC DATE: [...] the next coming weeks. Soha Nettles M.D. Dairy Worker, Pediatric Neurosurgery SD/X64 [id number] signed by Interface, Incinerator Plant Laborer In at 05/26/2006 1:08 AM [facility] umented in this encounter Plan of Treatment Not on filedocumented as of this encounter Visit Diagnoses Not on filedocumented in this encounter"
--- OUTSIDE RECORDS SUMMARY | ~2019-10-26 | XMS | Encounter Summary ---
Demographics + + + | Address | [address] | | | [place] [address] | + + + | Home Phone [...] [place] | | | | | [address] | | + + + + + Care Team Providers + +------+ + | Care Superintendent Menagerie Name | Role | Phone | + [...] | | | | | | | [facility] | | | | | | | Mail Code: | | | | | | | DC9S | | | | | | | [place] | | | | | | | [address] | | | | | | | Phone: | | | | | | | [phone] | | | | | | | Fax: | | | | | | | [phone] | +--------+--------+ + + + + Encounter Details +--------+ + + + + | Date | Type | Department | Care Team | Description | +--------+ + + + + | 06/26/ | Hospital | [facility] [address] | [place], | | | 2010 - | Encounter | [address] | [address] | | | | | [place], [place] | [address] | | | 07/03/ | | [address] | [place], [place] | | | 2010 | | [phone] | [address] | | | | | | [phone] | | | | | | | [...] 0659 07/02/11 07 - 07/03/11 0659 Shift 6866-8665 6923-6164 8301-1363 Daily Total 0621-2766 9061-0985 4932-1644 Daily Total I N T A K E P.O. 300 60 360 I.V. 10 398.1 753.23 1161.33 Other 30 30 120 180 Shift Total 340 488.1 873.23 1701.33 O U T P U T Urine 335 907 055 6959 I/O Urinary Drain Output (Urinary Cath Placement Suprapubic) 255 808 017 9862 I/O Urinary Drain Output (Urinary Cath Placement urethral [place]) 80 245 108 433 Drains 25 25 Wound Drain Output (Drains (wounds/surgical) DAVID) 25 25 Other Stool 2 2 Shift Total 360 969 286 0253 NET -20 -271.9 454.23 162.33 Physical Exam: [...] 24 hours Final Report Resulted: 07/01/11 [facility] ([facility]) [facility] [address] [place] [address] Assessment and Plan: POD #5 s/p ileocystoplasty, chait tube - full liquids for now, will d/w staff options for regular diet today - cont ivf for now, follow up, enc po intake - teach pt and family tube irrigation and provide discharge supplies - oob tid to [facility] today - anticipate d/c home once tolerating regular diet and bowel function normalized. - holding on chait irrigations until ok'd by Gen Surg (likely outpatient) MD Jacoby Simpson MD Resident - R6 Division of Urology Pager #[phone] Dave Mendiola MD - 07/01/2011 4:32 PM [...] 0659 07/01/11 07 - 07/02/11 0659 Shift 6722-2627 8572-6552 7604-8795 Daily Total 2306-0036 4110-7150 0391-2260 Daily Total I N T A K E P.O. 390 180 570 I.V. 1265 5 55 1325 Other 30 20 50 Shift Total 1685 233 98 0610 O U T P U T Urine 770 4775 856 5394 I/O Urinary Drain Output (Urinary Cath Placement Suprapubic) 700 4382 541 0005 I/O Urinary Drain Output (Urinary Cath Placement urethral [place]) 70 145 35 250 Drains 35 27 53 115 Wound Drain Output (Drains (wounds/surgical) ) 35 27 53 115 Shift Total 805 87156797 431 1508 [facility] [phone] [phone] Physical Exam: General: Alert, no acute distress [...] Vancomycin S Final Report Resulted: 06/29/11 [facility] ([facility]) [facility] [place] [address] [place] [address] Assessment and Plan: POD #4 s/p ileocystoplasty, [...] oob to hallway. Still with pain on HAIR DRESSER. No n/v, no f/c. ruben clears. Objective: [...] Date 06/29/11699 - 06/30/1165806/30/11699 - 07/01/11658 Shift 8184-0975 0096-7207 4420-9699 Daily Total 4168-4687 0062-3776 2338-7730 Daily Total I N T A K E P.O. 330 390 720 30 30 I.V. 965 590.2 1555.2 960 960 Shift Total 1295 980.2 2275.2 990 990 O U T P U T Urine 590 6751 838 6717 270 270 I/O Urinary Drain Output (Urinary Cath Placement Suprapubic) 125 967 445 7059 250 250 I/O Urinary Drain Output (Urinary Cath Placement urethral [place]) 465 180 300 945 20 2 0 Drains 54 49 75 178 15 15 Wound Drain Output (Drains (wounds/surgical) DAVID) 54 49 75 178 15 15 Shift Total 644 7419 619 6277 285 285 NET 651 -123.8 -675 -147.8 704 745 Physical Exam: General: Alert, no acute distress [...] mg in bacteriostatic NaCl 0.9% 50 mL HAIR DRESSER infusion, , Intravenous, CONTINUOUS ibupr ofen (aka [...] Vancomycin S Final Report Resulted: 06/29/11 [facility] ([facility]) [place] [address] [place] [address] Assessment and Plan: POD #3 s/p augment [...] list of active medications is available via Gigz[employer] unde r: Patient Chart -> Orders Lead Software Development Engineer -> Orders -> Medications. PHYSICAL EXAM and [...] 2. OOB to hallways today 3. Con't HAIR DRESSER for pain control 4. Would advance to [...] not tomorrow 3. Increase pain dose per HAIR DRESSER press 4. Ice chips for diet 5. Follow up on labs. If okay then no need for recheck until Thursday at the earliest. 6. Would not start hand irrigation yet. CHATO BENAVIDES MD [place] [address] [address] - 8:53 PM PDTI have [...] mg in bacteriostatic NaCl 0.9% 50 mL HAIR DRESSER infusion Intravenous CONTIN UOUS ibuprofen (aka ADVIL,MOTRIN) [...] study for 1 wk from liliana pfeiffer ([phone]) * Pedatric Gen Surg signing off at this time Diagnostic data, case and plan discussed with the Pediatric Surgery Attending of the day. P casey subject to change pending clinical status. Ivis Cho MD General Surgery, R1 Pager: [phone] Date: June 27, 2011 Justice Maddox MD - 12:06 PM PDTPEDIATRIC UROLOGY OPERATIVE NOTE Patient: Pete Orozco CSN:[id number] Date: 06/27/2011 12:06 PM Attending Physician: Naty [...] trabeculated NGB Naty [place] MD, FAAP, FACS dye padder operator Pediatric Urology Courtney Anne, Ivis Hinson [...] 06/27/11 0600 Gross per 24 hour Intake 78872 ml Output 975 ml Net 9557 ml [...] Ivis Cho MD General Surgery, R1 Pager: [phone] Date: June 27, 2011 documented in this [...] Douglas MD - 06/27/2011 9:13 PM PDT [id number] | | [id number] MCKAY Escobar | | [id number] Date: 06/27/2011 Attending Surgeon: Justice | | MD Misael Plastics Technician(s): Terrence Pardo MD | | Lb Luo [...] prepped and draped in the usual fashion. A14.5-Slovak pediatric cystoscope was advanced | | through [...] was divided with DANIS 60 staplers. A wsgtdffivncbke-ol-tblj | | anastomosis was then performed by [...] The abdomen was | | irrigated. A 19-Slovak round DAVID wasbrought through the right lower [...] 0.25% bupivacaine just prior to skin closure. Jusitce Douglas, | | MAULIK / [id number] / [id number] / [id number] / T: 06/27/2011 | |dictated separately. He [...] with DANIS 60 staplers. A functional | |fjyd-zb-oacn anastomosis was then performed by opening the [...] |significant leaks. The abdomen was irrigated. A 19-Slovak round DAVID was | |brought through the [...] Douglas MD | |JA / HS | |[id number] / [id number] / [id number] / | | | | | | | | | | | | | | | | | | | | | + + | Gabriel Loera MD - 06/28/2011 8:23 AM PDT [id number] | | [id number] [id number] MCKAY Escobar | | [id number] Date: 06/26/2011 Attending Surgeon: Gabriel | | Morris Loera Plastics Technician(s): Preoperative Diagnosis(es):Spina bifida with bowel | | [...] bladderaugmentation. Gabriel | | Ludwig Loera.ART / [id number] / [id number] / [id number] / T: 06/27/2011 | |Anesthesia: | |General [...] Loera M.D. | |GZ / HS | |[id number] / [id number] / [id number] / | | | | | | [...] | | | | | | [facility] ([facility]) | | | | | | [place] | | | | | | [facility] | | | | | | [address] [address] [facility] | | | | | | [place], [place] | | | | | | [address] | | | | + + + + + + + + | Specimen | + + | Urine - [place] Cath | + + + + + + + | Performing | Address | City/State/Zipcode | Phone Number | | Organization | | | | + + + + + | [facility] | [address] | [place] [address] | | | LAB-MICRO | | | [...] + + + + + | [facility] DEPARTMENT OF | [address] | [place] [address] | | | PATHOLOGY | [address] [...] | + + + + + | [facility] | [address] | [place] [address] | | | PATHOLOGY | [address] [...] Stefan | | | | | | [facility] | | | | | | [address] | | | | | | [place], [place] | | | | | | [address] | | | | + + + + + + + + | Specimen | + + | | + + + + + + + | Performing | Address | City/State/Zipcode | Phone Number | | Organization | | | | + + + + + | [facility] | [address] | [place] [address] | | | LAB-MICRO | | | [...] DEPARTMENT OF | [address] | [place] [address] | | | PATHOLOGY | [address] [...] DEPARTMENT OF | [address] | [place] [address] | | | PATHOLOGY | [address] [...] + + | Performing | Address | City/State/[facility] | Phone Number | | Organization | [...] DEPARTMENT OF | [address] | [place] [address] | | | PATHOLOGY | [address] [...] | + + + + + | [facility] | [address] | [place] [address] | | | PATHOLOGY | [address] [...] 11 7:35 | | | | | HAIR DRESSER infusion intravenous, | | PM PDT | [...] 11 7:18 | | | | | HAIR DRESSER infusion intravenous, | | AM PDT | [...] 11 7:42 | | | | | HAIR DRESSER infusion intravenous, | | AM PDT | [...] PDT | | | | | dose, [facility] 06/26/11 at 1000 | | | | [...] PDT | | | | | dose, [facility] 07/01/11 at 1430 | | | | | | + +-------+ +--------+---+---+ +---+---+ | | | +---+---+ documented in this encounter
--- OUTSIDE RECORDS SUMMARY | ~2019-10-26 | XMS | Encounter Summary ---
Demographics + + + | Address | [address] | | | [place] [address] | + + + | Home Phone | | + + + | Preferred Language | Unknown | + + + | Marital Status | Unknown | + + + | Amish Affiliation | Unknown | + + + | Race | Unknown | + + + | Ethnic Group | Unknown | + + + Author + + + | Author | [facility] | | | and [place] | + + + | Organization | [facility] | | | and [place] [...] Team Providers + +------+ + | Care Communication Skills Instructor Name | Role | Phone | [...] | | | | [place] | [phone] | | | | | [address] | | | | | | [phone] | | | +--------+ + + + [...]
--- OUTSIDE RECORDS SUMMARY | ~2019-10-26 | XMS | Encounter Summary ---
Demographics + + + | Address | [address] | | | [place] [address] | + + + | Home Phone [...] [place] | | | | | [address] | | + + + + + Care Team Providers + +------+ + | Care Partition Assembler Name | Role | Phone | + [...] | | | | hydrocephalu | [address] | [place], [place] | | | | | s, lumbar | [place], | [address] | | | | | region | [place] [address] | Phone: | | | | | Neurogenic | Phone: | [phone] | | | | | bladder, NOS | [phone] | Fax: | | | | | Procedures | Fax: | [phone] | | | | | [place] | [phone] | | | | | | US,RETROPERI [...] | 04/21/ | Office | [facility] at [facility] | Cy Hutson | 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); | | 2006 | Visit | Floor [address] | Jr., PT [address] [facility] | Equinus Deformity of | | | | St Mailcode: [facility] | [address] | Foot, Acquired; | | | | [facility], [place] | [place] [address] | Spina Bifida without | | | | [address] | | Mention of | | | | [phone] | | Hydrocephalus, | | | | [...] Discipline: Physical Therapy. Date of : [facility] Physician: DAJUAN JEROME MD Pete attended clinic [...] me it was bebeing done by the dynamic etching processor at [facility] although he is not yet enrolled there [...] surgery in 2004. I suggested enrolling in [facility] for orthotic managtement, orthopedic baseline ev aluation of his spine, and orthopedic re-evaluation of his right foot. I discussed my findi ngs and recommendations with Gabriel and his mother, and subsequently with Robert Johnson MD, Developmental Psychiatric Arnp and Payroll And Benefits Coordinator of the Spina Bifida Program Otherwise Pete appears to be stable in his structure and function. Because of the risk f or adverse change I will plan to evaluate him again at the next scheduled full team appointm ent with the Spina Bifida Program. IDALMIS HUTSON PT Physical Therapist [facility] documented in [...]
--- OUTSIDE RECORDS SUMMARY | ~2019-10-26 | XMS | Encounter Summary ---
Demographics + + + | Address | [address] | | | [place] [address] | + + + | Home Phone [...] [place] | | | | | [address] | | + + + + + Care Team Providers + +------+ + | Care Security And Compliance Analyst Name | Role | Phone | + +------+ + PCP | Unavailable | + +------+ + Encounter Details +--------+ + + + + | Date | Type | Department | Care Team | Description | +--------+ + + + + | 11/17/ | Results | [facility] at [facility] 7th | Marcio, | | | 2001 | Only | Floor [address] | MD Reyna [address] | | | | | St Mailcode: [facility] | [facility] | | | | | [facility] [place], [place] | [place], [place] | | | | | [address] | [address] | | | | | [phone] | | | +--------+ + + + [...] a | | | | | | dzni-awul-igw male with | | | | | [...] | | + +---------+ + + | [facility] DEPARTMENT OF | | | | | RADIOLOGY | | | | + +---------+ + + documented in this encounter Visit Diagnoses Not on filedocumented in this encounter"
--- OUTSIDE RECORDS SUMMARY | ~2019-10-26 | XMS | Encounter Summary ---
Demographics + + + | Address | [address] | | | [place] [address] | + + + | Home Phone [...] [place] | | | | | [address] | | + + + + + Care Team Providers + +------+ + | Care Tunnel Kiln Operator Name | Role | Phone | [...] | | bowel | Maritza Ferreira | [facility] | | | | | [place] of | [place], [place] | for Health | | | | | other | [address] | and Healing, | | | | | specified | Phone: | Building [address], | | | | | sites | [phone] | 3rd Floor | | | | | Procedures | Fax: | [place], [place] | | | | | X-RAY | [phone] | [address] | | | | | CYSTOGRAM, | | Phone: | | | | | VOID | | [phone] | | | | | W/HYDRODYN | | Fax: | | | | | W/URETHRCYST | | [phone] | | | | | & INJECTION | | | +--------+--------+ + + + + Encounter Details +--------+ + + + + | Date | Type | Department | Care Team | Description | +--------+ + + + + | 01/17/ | Hospital | Radiology at [facility] | | | | 2010 | Encounter | [address] [facility] | | | | | | Mailcode: L340 | | | | | | [place] | | | | | | [place], [place] | | | | | | [address] | | | | | | [phone] | | | +--------+ + + + [...]
--- OUTSIDE RECORDS SUMMARY | ~2019-10-26 | XMS | Encounter Summary ---
Demographics + + + | Address | [address] | | | [place] [address] | + + + | Home Phone [...] [place] | | | | | [address] | | + + + + + Care Team Providers + +------+ + | Care Pony Edger Name | Role | Phone | + [...] as of this encounter Progress Notes Interface, Multiple Resaw Operator In - 06/15/2005 12:04 AM PDT [id number] 12/17/2004 12/17/2004 [id number] MCKAY GALAN Clinic Date: 12/17/2004 Orthopedics Clinic Note NO DICTATION Mariana Najera/mls P [id number] cc: documented i n this encounter Plan of Treatment Not on filedocumented as of this encounter Visit Diagnoses Not on filedocumented in this encounter"
--- OUTSIDE RECORDS SUMMARY | ~2019-10-26 | XMS | Encounter Summary ---
Demographics + + + | Address | [address] | | | [place] [address] | + + + | Home Phone [...] [place] | | | | | [address] | | + + + + + Care Team Providers + +------+ + | Care Pnp Name | Role | Phone | + +------+ + PCP | Unavailable | + +------+ + Encounter Details +--------+ + + + + | Date | Type | Department | Care Team | Description | +--------+ + + + + | 05/20/ | Results | [facility] at [facility] 7th | Dave Malik MD | | | 1999 | Only | Floor [address] | [address] | | | | | St Mailcode: [facility] | Mairtza Ferreira [place], | | | | | [facility] [place], [place] | [place] [address] | | | | | [address] | [phone] | | | | | [phone] | | | +--------+ + + + [...] | US KIDNEY BILATERAL | Routin | 05/20/2000 | | Results for this | | | e | 1:20 PM | | procedure are in the | | | | PDT | | results section. | + +--------+ + + + documented in this encounter Results US KIDNEY BILATERAL (05/20/2000 1:20 PM PDT) + + + + + + | Component | Value | Ref Range | Performed | Pathologist | | | | | At | Signature | + + + + + + | US KIDNEY | Radiologist 1: | | | | | BILATERAL | MIGUEL KONG, | | | | | | M.DIonULTRASOUND KIDNEY | | | | | | BILATERAL: 05/20/00 | | | | | | Dictated 05/20/00 | | | | | | CLINICAL INFORMATION: | | | | | | The patient weighs | | | | | | approximately 16.6 kg. | | | | | | FINDINGS: The right | | | | | | kidneys is normal in | | | | | | echotexture. It measures | | | | | | 6.6x 3 x 3.8 cm with a | | | | | | volume of 39.3 cc which | | | | | | is close to the | | | | | | 50thpercentile using | | | | | | renal volume for | | | | | | weight. There is no | | | | | | hydronephrosisor | | | | | | hydroureter. The left | | | | | | kidney is normal in | | | | | | echotexture. It measures | | | | | | 6.7 x 3.1 x 3.6cm with | | | | | | a volume of 39 cc which | | | | | | is close to the 50th | | | | | | percentile usingrenal | | | | | | volume for weight. No | | | | | | hydronephrosis or | | | | | | hydroureter. The bladder | | | | | | was approximately 45 | | | | | | cc. After voiding there | | | | | | was aresidual of 39 cc, | | | | | | with a significant post | | | | | | void residual. | | | | | | IMPRESSION: 1. The upper | | | | | | tracts have remained | | | | | | normal. 2. Large post | | | | | | void residual. The | | | | | | patient does not self | | | | | | catheterize atthis time. | | | | | | END OF IMPRESSION: | | | | | | | | | | + + + + + + + + | Specimen | + + | | + + + +---------+ + + | Performing | Address | City[facility] | Phone Number | | Organization | | | | + +---------+ + + | [facility] DEPARTMENT | | | | | RADIOLOGY | | | | + +---------+ + + documented in this encounter Visit Diagnoses Not on filedocumented in this encounter"
--- OUTSIDE RECORDS SUMMARY | ~2019-10-26 | XMS | Encounter Summary ---
Demographics + + + | Address | [address] | | | [place] [address] | + + + | Home Phone [...] [place] | | | | | [address] | | + + + + + Care Team Providers + +------+ + | Care Training And Quality Manager Name | Role | Phone | [...] | | | | hydrocephalu | [address] | [place], [place] | | | | | s, lumbar | [place], | [address] | | | | | region | [place] [address] | Phone: | | | | | Neurogenic | Phone: | [phone] | | | | | bladder, NOS | [phone] | Fax: | | | | | Procedures | Fax: | [phone] | | | | | MM,WF | [phone] | | +--------+--------+ + + + + Encounter Details +--------+---------+ + + + | Date | Type | Department | Care Team | Description | +--------+---------+ + + + | 10/02/ | Office | [facility] at [facility] 7th | Robert Johnson MD | 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 Primary Provider: Has recently moved to [place], [place] to reside with his father; [employer] provider not yet established. History of Present [...] He wears an AFO, newly constructed at [facility]. Scheduled follow up in a year or [...] He had been living with mother in [place], while his younger brother resided with father in [place]. Pete has now m pamela to join [...] IQ 70. Now participates in support in [employer] [facility] [facility] [employer] for some subjects. Physical Examination: [...] but he does have instability at the [facility] ankle, and because of weakness, the right [...] surgical intervention? -He is scheduled back to [facility] to Dr. Cantrell, Pediatric Orthopedist, November 04. [...] care. Robert Johnson MD MM / HS [id number] / [id number] / [id number] / documented in this enco unter Plan [...]
--- OUTSIDE RECORDS SUMMARY | ~2019-10-26 | XMS | Encounter Summary ---
Demographics + + + | Address | [address] | | | [place] [address] | + + + | Home Phone [...] [place] | | | | | [address] | | + + + + + Care Team Providers + +------+ + | Care Supply Chain Intern Name | Role | Phone | + +------+ + PCP | Unavailable | + +------+ + Encounter Details +--------+ + + + + | Date | Type | Department | Care Team | Description | +--------+ + + + + | 05/04/ | Results | [facility] at [facility] 7th | Dave Malik MD | | | 2001 | Only | Floor [address] | [address] | | | | | St Mailcode: [facility] | Maritza Ferreira [place], | | | | | [facility] [place], [place] | [place] [address] | | | | | [address] | [phone] | | | | | [phone] | | | +--------+ + + + [...]
--- OUTSIDE RECORDS SUMMARY | ~2019-10-26 | XMS | Encounter Summary ---
Demographics + + + | Address | [address] | | | [place] [address] | + + + | Home Phone [...] [place] | | | | | [address] | | + + + + + Care Team Providers + +------+ + | Care Director Blood Bank Name | Role | Phone | + +------+ + | Dajuan Jerome MD | PCP | | + +------+ + Encounter Details +--------+ + + + + | Date | Type | Department | Care Team | Description | +--------+ + + + + | 04/20/ | Office | [facility] | Report, Outpatient | Progress Note | | 1995 | Visit-Trans | & Rehabilitation | Consultation | | | | cribed | [phone] | | | | | | Loop Mailcode: | | | | | | [id number] Physician's | | | | | | [place], | | | | | | [place] [address] | | | | | | [phone] | | | +--------+ + + + [...] of this encounter Progress Notes Interface, Air Route Controller In - 02/10/2007 5:02 AM PDT CLINIC DATE: 04/20/96 CLINIC NAME: [facility] DISCIPLINE: PHYSICAL THERAPY Pete attended clinic this morning accompanied by both of his parents. He is a boy of four months of age who has a diagnosis of lipomyelomeningocele status post repair. During his hospitalization following repair of the lipomyelomeningocele, he was described as having apparent focal weakness only at his right ankle. Pete is reportedly receiving Early Intervention physical therapy and occupational therapy services. Pete was asleep when I initially approached him but subsequently awakened. He proved to be alert and attentive and tolerant of my exam. I believe I was able to make an accurate assessment of his status. His general appearance that he consistently displayed throughout my time with him was remarkable for strong preferential head turning to the right. Likewise, he consistently displayed more movement with his left-sided extremities than with his right-sided extremities whether the movements were spontaneous or elicited by stimulation. He did display full active range of motion of his head to the right side, however, and he did display active control in apparent age-appropriate movement patterns with his right-sided extremities. Also remarkable about his appearance throughout my time with him was the consistently shortened right side of his trunk. Accompanying this, he kept his right shoulder in elevation with partial abduction and with partial flexion of his elbow, wrist pronation and occasional partial fisting. Musculoskeletal exam of Pete was essentially normal. He displayed hip abduction that was limited to 0-70 degrees bilaterally when his hips were 90 degrees of flexion, but there were no other clinical signs of hip subluxation or dislocation. His range of motion, alignment and joint integrity are all intact throughout all four extremities and in his trunk. Notably too, he displays full active and passive range of motion at his neck for all excursions. Neuromotor exam of Pete was most remarkable for the apparent asymmetry of use of his extremities. He does display activation of all of the musculature at his right ankle and foot, but there is discernible weakness in that he does not accept any resistance to the movement without collapsing that position. I had difficulty assessing his resting muscle tone because he did not appear to completely relax for me to do passive movement throughout. However, I was unable to appreciate any asymmetry of muscle tone when I did attempt to examine and compare his extremities. He did not display any persistence of primitive reflexes, but he did display downgoing toes on the right and upgoing toes on the left. Pete then is a 4-month-old boy with a diagnosis of lipomyelomeningocele and who also displays some paradoxical findings in the form of apparent mild weakness or less readily available movement affecting his right-sided extremities. In addition, he does display moderate focal weakness affecting his right ankle and foot musculature. I did strongly recommend that he continue with the therapy services that are being provided through Early Intervention at the present time. I will plan to reevaluate [facility] August 1996. At that time, I will reassess his neuromotor and musculoskeletal status with particular attention to the asymmetry that I discerned today. I will be available in the meantime to address questions related to this report at . Raul Zamora Physical Therapist WF:vitaliy nterface, Air Route Controller In - 02/10/2007 5:02 AM PDT CLINIC DATE: 04/20/96 CLINIC NAME: [facility] DISCIPLINE: SOCIAL WORK Pete, four months of age, comes to Clinic today with his parents, Nicky Chapa and Yamil Orozco. Nicky describes herself as being a young woman who is now 24 years of age who required Special Education as she was growing up, especially in the areas of Spelling and Math. Yamil is 25 years of age, no information regarding his education as growing up. He is currently a short cdl truck driver. This family lives in [place] with Nicky's rcjp-uhkp-lpv son, Dave, by a prior marriage. A review of community resources reveals that Pete is covered through the [facility] and his managed care program is through [facility]. Umm Kaufman M.D. is his local primary care provider. He receives Supplemental Security Income (SSI). He has been evaluated by the local Early Intervention staff, but services are not likely to begin until the fall. Pete's parents are obviously eager to do the best that they can with him. This social media marketing analyst remains available as needed. Neli Robison LCSW Veterinary Toxicologist BD /josiane A cc: nterface, Air Route Controller In - 02/10/2007 5:02 AM PDT CLINIC DATE: 04/20/96 CLINIC NAME: [facility] DISCIPLINE: PEDIATRICS Asymmetrical Motor Function: Physical exam by others endorses weakness and [...] lipomeningocele, which is this child's underlying lesion. Perhaps, the best approach is to reevaluate the child again as scheduled in early (August [facility]). If asymmetrical tone and function is still present, then we will refer the patient for further evaluation. This would most appropriately be MRI of the brain. Robert Johnson M.D. Stem Shaper, Pediatrics MM /shantel A cc: INES KING MD [address] [place] [address] [place] [id number] Raul Zamora Physical Therapist [facility] nterface, Air Route Controller In - 02/10/2007 5:02 AM PDT CLINIC DATE: 04/20/96 CLINIC NAME: [facility] DISCIPLINE: NURSING Pete is a 4-month-old boy with lipomeningocele, repaired. He is accompanied by both parents for today's first evaluation at [facility]. HEALTH CARE MAINTENANCE Pete receives his primary care from Dr. Kaufman in [place]. He had repair of his lipomeningocele on 02/09/96 at 7 weeks of age here at [facility]. The parents report he has been healthy otherwise except for a slight cough and occasional wheezing. The parents smoke in the home and this was discussed today. In addition, Pete was due for his second doses of vaccines and today he received a second dose of diphtheria, pertussis, and tetanus vaccine (DPT), oral polio vaccine (OPV), and Hemophilus influenzae type B (HIB). NUTRITION/ELIMINATION Pete takes Enfamil with iron. The family is planning to begin introducing him to solids beginning with rice cereal in the next week. He had a renal ultrasound done when in the hospital. He reportedly voids with a stream and has not had any urinary tract infections. He has twice daily bowel movements. They are described as generally soft baby stools with an occasional harder stool. DEVELOPMENTAL Pete has had an Early Intervention assessment with plans to begin services once a month in Fall 1995. The parents have been instructed in exercise and therapies to be performed at home in the interim. There was recommendations that Pete have his vision and hearing checked. The parents do not feel that he has visual difficulties and feel that he tracks well. They do suspect, however, that he does not hear well in the left ear. He is described as not demonstrating startle to sounds on the left side and that when approaching him from behind he sometimes has difficulty orienting to where the sound is coming from. He will have an audiology assessment today. Pete does tend to turn and lay on his right side. He requires encouragement and much stimulation to make him orient to the left. Please see physical therapy report. PLAN Pete should return to [facility] for full evaluation in six months. In the interim he will have follow-up at the [facility] in July 1996. We will continue to monitor his growth and development as well as bowel and bladder issues. Annabelle Burnett R.N., B.S.N. Nurse Bag Turner AYAKA/jose a P nterface, Air Route Controller In - 02/10/2007 5:02 AM PDT CLINIC DATE: CLINIC NAME: DISCIPLINE: ORTHOPEDICS Pete is a jaus-zvgna-olt boy who presents with a previously resected lipomeningocele, which was done around the time of . The parents have noted no particular motor difficulties. Spinal microdissection was done at the time of the initial closure. Physical examination shows that he is a healthy-appearing ttbd-zghsg-fly boy. He has a posterior midline closure in the lumbosacral spine, which is nicely healed. The spine is straight. Upper extremity mobility is normal. Lower extremities show that he has stable hips bilaterally. He is kicking his knees and ankles seemingly in a normal fashion. IMPRESSION: Lipomeningocele with seemingly no orthopedic defect at present. PLAN: Will plan long-range follow-up without intervention at present. I will see him at his next appointment. Gilbert Romero M.D. Chicken Handler, Orthopedics and Rehabilitation ANAMARIA/daisy A nterface, Air Route Controller In - 02/10/2007 5:02 AM PDT CLINIC DATE: 04/20/96 CLINIC NAME: ?? DISCIPLINE: PEDIATRIC UROLOGY SUBJECTIVE: Pete is a dowc-dayos-xht boy born with lipomyelomeningocele which was closed approximately two months after . [facility] as an inpatient and as an outpatient, and he has an appointment with Dr. Malik on the 17th of this month. The parents report that he has had no problems with his urinary tract. In particular, he has a good urinary stream which they both witnessed, and he also has had no urinary tract infections to their knowledge. Pete has been evaluated by Dr. Dave Malik with a renal ultrasound which was reportedly normal except for some minimal dilatation over the left renal pelvis. He also had a voiding cystourethrogram (VCUG) which showed no reflux but a moderate-sized postvoid residual. OBJECTIVE: Today the patient appears normal and is sleeping. On examination he is uncircumcised. Phallus is normal-appearing otherwise. He has palpable testes descended bilaterally. He has no abdominal masses. The patient does move both lower extremities. A urine specimen was not obtained today, as he will be following up with Dr. Malik in less than two weeks. ASSESSMENT: The patient has mild lipomyelomeningocele and a neurogenic bladder with large postvoid residual. He has no evidence of reflux and has had no urinary tract infection and is currently not on any form of catheterization or antibiotics. PLAN: The patient will follow up with Dr. Malik as above. The patient should follow up in the [facility] clinic in approximately six months or with his next scheduled visit. Darryl Cox M.D. Resident, Urology Dylan Agarwal M.D. Professor, Surgery Pediatric Urology MATT/telma P cc: nterface, Air Route Controller In - 02/10/2007 5:02 AM PDT CLINIC DATE: 04/20/96 CLINIC NAME: [facility] DISCIPLINE: NEUROLOGY Pete is four months of age. Shortly after , he underwent repair of a lipomyelomeningocele. The lipoma was on the right side of the spinal cord, and it involved some of the lumbosacral nerve roots on the right side. Pete has been well. His parents say that he urinates with a stream. The spine wound is nicely healed. There is no contracture or deformity of the lower limbs. The feet are the same size. Spontaneous movements are normal. The plantar flexion is normal on the right side, and the Achilles reflexes are present bilaterally. I did not observe active ankle plantar flexion on the left today. IMPRESSION: Lipomyelomeningocele. Pete seems quite stable from a neurosurgical standpoint. PLAN: Routine follow-up in six months. Shiraz Vance Jr., M.D., F.A.A.P. Stem Shaper, Neurosurgery and Pediatrics PATRICK/telma P cc: nterface, Air Route Controller In - 02/10/2007 5:02 AM PDT CLINIC DATE: 04/20/96 CLINIC NAME: [facility] DISCIPLINE: PEDIATRIC AUDIOLOGY GENERAL COMMENTS: This 4-month-old was seen by Pediatric Audiology as part of his participation in the above named clinic. His parents accompanied him to this evaluation, and expressed some concern regarding their son's hearing. They noted that it appears he has some trouble localizing when sounds are to the left, and at times does not seem to respond when his parents are outside of his visual field but calling his name. He has no history of ear infections. CONDITION OF HEARING: This child's hearing was evaluated with informal uncalibrated pediatric observation techniques. He localized to a variety of auditory stimuli within the 40 to 60 db range. Localization was somewhat better right than left. He displayed an excellent startle response to both 3,000 hertz narrow band stimulus at an intensity level of 90 db, and to a trike horn with an intensity of approximately 100 db. The middle ears were tested with otoscopy and tympanometry. It was difficult to visualize the tympanic membranes due to an accumulation of ceruminous debris in the ear canal. Tympanograms revealed negative pressure with normal compliance--right, and normal pressure and compliance--left. There was no obvious evidence of fluid, infection or drainage in either ear. DIAGNOSTIC IMPRESSIONS: Normal auditory responsiveness for developmental age level. These observations described above, however, cannot rule out the possibility of a mild unilateral or high frequency hearing loss. Middle ear function is within normal limits, with the exception of slight negative pressure in the right ear. COMMENTS AND RECOMMENDATIONS: The findings of today's examination were shared with Pete's parents and with the clinic team. Today's observations do rule out the possibility of a severe to profound hearing loss, however, auditory responsiveness is within normal limits today. Therefore, further testing is not recommended immediately. Calibrated VRA testing is recommended within two to three months and that can be performed at [facility] or at another facility. Faina Ledesma Audiology Fellow Ines Steel Ed.D. Senior Merchandiser DP /omar P cc: documented in this encounter Plan of Treatment Not on filedocumented as of this encounter Visit Diagnoses Not on filedocumented in this encounter"
--- OUTSIDE RECORDS SUMMARY | ~2019-10-26 | XMS | Encounter Summary ---
Demographics + + + | Address | [address] | | | [place] [address] | + + + | Home Phone [...] [place] | | | | | [address] | | + + + + + Care Team Providers + +------+ + | Care Rubber Stamp Die Inspector Name | Role | Phone | [...] [id number] | | | | | | [place], [place] | | | | | | [address] | | | | | | [phone] | | | +--------+ + + + [...] | | | | | | Re [id number] | | | | | | 01ISOLATE [...] | + + + + + | [facility] | [address] | [place] [address] | | | PATHOLOGY | [address] [...] | + + + + + | [facility] | [address] | [place] [address] | | | PATHOLOGY | [address] | | | + + + + + documented in this encounter Visit Diagnoses Not on filedocumented in this encounter"
--- OUTSIDE RECORDS SUMMARY | ~2019-10-26 | XMS | Encounter Summary ---
Demographics + + + | Address | [address] | | | [place] [address] | + + + | Home Phone [...] [place] | | | | | [address] | | + + + + + Care Team Providers + +------+ + | Care Staff Forester Name | Role | Phone | + [...] | | 2004 | Registratio | [address] [facility] | [address] | | | | [address] | [address] Mailcode: [id number] | [place], [place] | | | | | [place], [place] | [address] | | | | | [address] | [phone] | | | | | [phone] | | | +--------+ + + + [...]
--- OUTSIDE RECORDS SUMMARY | ~2019-10-26 | XMS | Encounter Summary ---
Demographics + + + | Address | [address] | | | [place] [address] | + + + | Home Phone [...] [place] | | | | | [address] | | + + + + + Care Team Providers + +------+ + | Care Inspector Sheet Metal Parts Name | Role | Phone | + [...] Consultation | | | | cribed | [address] | | | | | | Loop Mailcode: | | | | | | [id number] Physician's | | | | | | [place], | | | | | | [place] [address] | | | | | | [phone] | | | +--------+ + + + [...] as of this encounter Progress Notes Interface, Assistant Child Care Teacher In - 01/11/2007 2:25 AM PST CLINIC [...] of lumbosacral lipomyelomeningocele. He is followed in [place] in the Early Intervention Program by Nellie [...] scribbling. He was able to place a deering into a formboard. He did not imitate [...] a neat pincer grasp in order to sheepskin pickler small pellet-sized objects and was able to [...] feel free to contact this therapist at [phone]. John Sierra Occupational Therapist DAMIAN/nicol A nterface, Assistant Child Care Teacher In - 01/11/2007 2:25 AM PST CLINIC [...] His mom serves as a fairly good wound treatment rn on his behalf. It is nice that her mom is here for her support. Pete lives in [place] with his mom and his 6-year-old half-brother, Dave. Nicky reports that she is currently in very early . This child she is carrying will be a full sibling to Pete. She reports that she and Pete's father are currently and he is living in [place]. She is unsure what the future holds for their marriage. She is currently home full-time with the kids and looking for work. She receives some financial assistance through [facility] and has [facility] coverage for herself and her children. She reports she also receives some child support. She has applied for SSI on Pete's behalf in the past and, thus far, has been denied but plans to appeal. Managed care for [facility] provides medical coverage and the managed care program is called the [facility] [place]. Dr. Umm Kaufman continues as Pete's primary care physician. Pete [...] remains available as needed. Neli Robison LCSW Turret Lathe Set Up Operator Vitor nterface, Assistant Child Care Teacher In - 01/11/2007 2:25 AM [facility] CLINIC DATE: 04/19/97 CLINIC NAME: [facility] DISCIPLINE: PEDIATRIC UROLOGY Pete is a 25-tvpfq-pcg boy with a lumbosacral lipomyelomeningocele. He has [...] Dixon M.D. Resident, Urology Dave Malik M.D. Breast Splitter, Urology TMW:vitaliy nterface, Assistant Child Care Teacher In - 01/11/2007 2:25 AM PST CLINIC [...] report at . Raul Zamora Physical Therapist WF:viatliy nterface, Assistant Child Care Teacher In - 01/11/2007 2:25 AM PST CLINIC [...] through this clinic. Shiraz Vance Jr. M.D.,F.A.A.P. Breast Splitter, Neurosurgery and Pediatrics CULLENP:vitaliy nterface, Assistant Child Care Teacher In - 01/11/2007 2:25 AM PST CLINIC [...] the next full evaluation. Gilbert Romero M.D. Digital Marketing Project Manager, Orthopedics and Rehabilitation ANAMARIA:julius nterface, Assistant Child Care Teacher In - 01/11/2007 2:25 AM PST CLINIC DATE: 04/19/97 CLINIC NAME: [facility] DISCIPLINE: PEDIATRIC AUDIOLOGY GENERAL COMMENTS: This 73-uucvy-mlk infant is seen today through the [facility] [...] on a request basis. Sami Francois, Ph.D. Strawhat Blocking Operator ROP:julius documented in this encounter Plan of Treatment Not on filedocumented as of this encounter Visit Diagnoses Not on filedocumented in this encounter
--- OUTSIDE RECORDS SUMMARY | ~2019-10-26 | XMS | Encounter Summary ---
Demographics + + + | Address | [address] | | | [place] [address] | + + + | Home Phone [...] [place] | | | | | [address] | | + + + + + Care Team Providers + +------+ + | Care Cardiac Catheterization Technologist Name | Role | Phone | + +------+ + PCP | Unavailable | + +------+ + Encounter Details +--------+ + + + + | Date | Type | Department | Care Team | Description | +--------+ + + + + | 02/15/ | Results | [facility] 7th | Dave Malik MD | | | 1995 | Only | Floor [address] | [address] | | | | | [address] Mailcode: [facility] | [place], | | | | | [facility] [place], [place] | [place] [address] | | | | | [address] | [phone] | | | | | [phone] | | | +--------+ + + + [...] | | + +---------+ + + | [facility] DEPARTMENT OF | | | [...] | | + +---------+ + + | [facility] DEPARTMENT OF | | | [...]
--- OUTSIDE RECORDS SUMMARY | ~2019-10-26 | XMS | Encounter Summary ---
Demographics + + + | Address | [address] | | | [place] [address] | + + + | Home Phone [...] [place] | | | | | [address] | | + + + + + Care Team Providers + +------+ + | Care Desktop Technician Name | Role | Phone | [...] as of this encounter Progress Notes Interface, Art Museum Aide In - 07/25/2005 5:02 AM PDT [id number] [facility] Date: 07/02/2005 Clinic Name: [facility] Discipline: Physical Therapy. Pete attended clinic today, accompanied by his father. He is 9-1/2-years of age and has lumbosacral lipomyelomeningocele with isolated subtle motor deficits affecting the right foot. 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 In December 2004, he underwent a right plantar fasciotomy with stripping of the intrinsic musculature and an anterior tibialis tendon transferred to the dorsum of the midfoot along with lengthening of flexor hallucis longus and the flexor digitorum longus. He now has an AFO fit post surgery. Pete reports that he is doing well and likes having his orthotics. He reports that the AFO makes him skip. He is able to clarify this and point that he feels steadier and more stable with the device on. Physical Examination: Pete's physical exam in unremarkable for any change elsewhere. At his right foot, however, he has a stiff foot with limited plantar flexion and dorsiflexion but the foot is in very good position for orthotic management. In fact good neutral alignment is readily available throughout. Pete is able to move to the gross motor developmental sequence from the recumbency up through sitting nearly half nearly standing walking and running. He is able to hop on either foot independently with his AFO on. He is able to skip and even manage to skip backwards, has completely normal gross motor activity. He runs quite well. Pete is stable in status and has benefited with better alignment in function of his right foot following his surgery. He has also benefiting from the orthotic. I will plan to evaluate him again at his next scheduled full team appointment with the clinic. Lauryn Zamora. / [id number] / [id number] / [id number] / Electronically signed by Robinson Hutson 07-24-2005 01:21:08 PM documented i n this encounter Plan of Treatment Not on filedocumented as of this encounter Visit Diagnoses Not on filedocumented in this encounter"
--- OUTSIDE RECORDS SUMMARY | ~2019-10-26 | XMS | Encounter Summary ---
Demographics + + + | Address | [address] | | | [place] [address] | + + + | Home Phone [...] [place] | | | | | [address] | | + + + + + Care Team Providers + +------+ + | Care Certified Anesthesiologist Assistant Name | Role | Phone | [...] | | | | | Mailcode: OP34 [facility] | | | | | | [place] | | | | | | [facility] | | | | | | [place] [address] | | | | | | [phone] | | | +--------+ + + + [...] as of this encounter Discharge Summaries Interface, Implementation Project Manager In - 01/22/2007 7:15 AM PST [address] [address] [facility] MEDICAL SUMMARY OF HOSPITALIZATION Med Rec No.: [id number] Admission Date: 02/09/96 Name: Pete Orozco Discharge Date: 02/14/96 STAFF PHYSICIAN: Shiraz Vance Jr., M.D., F.A.A.P. Assembler 1St Shift, Neurosurgery and Pediatrics PRINCIPAL FINAL DIAGNOSIS: Lipomyomeningocele. PRINCIPAL PROCEDURE: Repair of lipomyomeningocele. 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 The patient was noted to have a mass over his lumbosacral area at delivery. His parents reported that the mass increased in size. He was seen by his primary care physician in [place], who referred the patient to Dr. Vance [...] Vance in 2 weeks. Humberto Bills M.D. Letterpress Setter, General Surgery Shiraz Vance Jr., Ludwig., F.A.A.P. Assembler 1St Shift, Neurosurgery and Pediatrics /sera A cc: GEOFF NG MD [address] [place] [address] documented in this encounter Plan of Treatment Not on filedocumented as of this encounter Visit Diagnoses Not on filedocumented in this encounter"
--- OUTSIDE RECORDS SUMMARY | ~2019-10-26 | XMS | Encounter Summary ---
Demographics + + + | Address | [address] | | | [place] [address] | + + + | Home Phone [...] [place] | | | | | [address] | | + + + + + Care Team Providers + +------+ + | Care Drywall Metal Stud Worker Name | Role | Phone | + +------+ + | Dajuan Jerome MD | PCP | | + +------+ + Encounter Details +--------+ + + + + | Date | Type | Department | Care Team | Description | +--------+ + + + + | 10/02/ | Hospital | Radiology at [facility] | | | | 2009 | Encounter | [address] [facility] | | | | | | Mailcode: L340 | | | | | | [place] | | | | | | [place], [place] | | | | | | [address] | | | | | | [phone] | | | +--------+ + + + [...] | | + +---------+ + + | [facility] DEPARTMENT OF | | | | | RADIOLOGY | | | | + +---------+ + + documented in this encounter Visit Diagnoses + + | Diagnosis | + + | 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
--- OUTSIDE RECORDS SUMMARY | ~2019-10-26 | XMS | Encounter Summary ---
Demographics + + + | Address | [address] | | | [place] [address] | + + + | Home Phone [...] [place] | | | | | [address] | | + + + + + Care Team Providers + +------+ + | Care Educational Assistant Teacher Name | Role | Phone | [...] | | | | mention of | [place], [place] | | | | | | hydrocephalu | [address] | | | | | | s, lumbar | Phone: | | | | | | region | [phone] | | | | | | Neurogenic | Fax: | | | | | | bladder, NOS | [phone] | | | | | | Neurogenic [...] | 07/28/ | Hospital | Radiology at [facility] | | | | 2010 | Encounter | [address] | | | | | | Mailcode: L340 | | | | | | [place] | | | | | | [place], [place] | | | | | | [address] | | | | | | [phone] | | | +--------+ + + + [...]
--- OUTSIDE RECORDS SUMMARY | ~2019-10-26 | XMS | Encounter Summary ---
Demographics + + + | Address | [address] | | | [place] [address] | + + + | Home Phone [...] [place] | | | | | [address] | | + + + + + Care Team Providers + +------+ + | Care Child Support Specialist Name | Role | Phone | [...] [place] | | | | | | [address] | | | +--------+ + + + [...]
--- OUTSIDE RECORDS SUMMARY | ~2019-10-26 | XMS | Encounter Summary ---
Demographics + + + | Address | [address] | | | [place] [address] | + + + | Home Phone [...] [place] | | | | | [address] | | + + + + + Care Team Providers + +------+ + | Care Graphite Grinder Name | Role | Phone | [...] | hydrocephalu | [address] | [place], [place] | | | | | s, lumbar | [address] | [address] | | | | | region | [address] | Phone: | | | | | Procedures | [place], | [phone] | | | | | ID EST | [place] [address] | Fax: | | | | | PATIENT | Phone: | [phone] | | | | | LEVEL V ID | [phone] | | | | | | PHYS THERAPY | Fax: | | | | | | EVALUATION | [phone] | | | | | | ID [...] | 04/14/ | Office | [facility] | Yolis Hamilton, | Lipomyelomeningocele | | 2011 | Visit | Floor [address] | OT | ; Delayed | | | | St Mailcode: [facility] | | milestones; Visual | | | | [facility] [place], [place] | | impairment | | | | [address] | | | | | | [phone] | | | +--------+---------+ + + + [...] might be different fr om the original. [facility] Spina Bifida Program Occupational Therapy Evaluation Report IDENTIFYING INFORMATION: Name: Pete Orozco Age: 16 year 3 month Date of Visit: 04/14/2012 Accompanied by: Aunt Language Spoken: Syriac is the language spoken in the home. [...] year old brother, and brother's fiance in [place], [place]. COMMUNITY SERVICES: Pete is in the 10th grade at [employer]. He reports he does not [...] Thin I wunt to go to my [employer] house. Thin go up to the [place]." in attempt to write "I want to go fishing. Then I want to go to my grandma's house. Then go up to the [employer]." Formal Assessment: Maria Teresa Developmental Test of [...] Raw Score Standard Score Percentile Age Equivalent [facility] VMI 26 92 30th 12 years 3 [...] all self-care skills. He prepares meals for [facility] including Tv dinners and simple sandwiches or microwaveable meals. For fun he enjoys hanging out with his friends and riding his bike at the [employer]. He reports that he does not [...] one free resource online (h ttp://www.typing-lessons.org/) or www.Boticca. He may also benefit from software tae viveros Co:Lead Medical Technologist. Co:Lead Medical Technologist is a word prediction program that helps increase the written work production for the student struggling with sentence composition. Information about Co:write r can be found at http://www.RELEASEIF/products/korina/index.html 3. Pete should be encouraged to practice his writing skills for functional tasks such as for filling out forms, registering for sports teams, or sending cards. PLAN: Follow-up OT evaluation in 1 year with the [facility] Spina Bifida team. It was a pleasure working with Pete and his aunt today. The referral from Umm ford MD, M.D. was greatly appreciated. The results and recommendations from this evaluation we re discussed with the individual/family at the end of the session. [facility] recognizes that it is the responsibility of the parents and the school district's educational team to determine services and implement suggestions as appropriate. The information in this report may be u sed to help make these decisions. Please contact the occupational therapist named below at for questions or concerns regarding this evaluation. Yolis Hamilton MS, OTR/L [facility] Occupational Therapist documented in this encounter Plan of Treatment Not on filedocumented as of this encounter Procedures + +--------+ + + + | Procedure Name | Priori | Date/Time | Associated Diagnosis | Comments | | | ty | | | | + +--------+ + + + | ID OCCUPATIONAL | Routin | 05/06/2012 | | [...]
--- OUTSIDE RECORDS SUMMARY | ~2019-10-26 | XMS | Encounter Summary ---
Demographics + + + | Address | [address] | | | [place] [address] | + + + | Home Phone [...] [place] | | | | | [address] | | + + + + + Care Team Providers + +------+ + | Care Animal Nursery Worker Name | Role | Phone | [...] as of this encounter Progress Notes Interface, Customs Officer In - 06/14/2005 7:10 PM PDTClinic Date: 03/06/2004 Clinic Name Spina bifida Clinic Discipline Social Work Pete is 8-years and 9-skcxgq-wuv. He returns to this clinic with his father, Yamil, and accompanied by his paternal grandmother, Yolie. Pete is followed for needs related to a repaired lumbosacral lipomyelomeningocele and mild orthopedic needs. He has a neurogenic bowel and bladder as well. He continues to live in [place] with his parents, Yamil and Nicky, and his older brother Dave and younger brother Jared. Please see all reports from this date. Currently Yamil is working as a assistant city attorney. 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 His works as a care provider. She was not able to come today because of her work and also because of the need to provide supervision for the other two children, ages 13 and 6. This family has lived in [place] for a long time and due have friends and extended family. Yamil's brother also lives there and his parents have recently moved to the area. Primary care is with Dr. Marlyn Kaufman. Currently Pete is covered under the [place] [employer] through [employer]. At the moment the family income is too great for Pete to qualify for supplemental security income benefits and it is questionable if he would be considered disabled enough anyway to qualify. His family has had some difficulty maintaining [place] [employer] status because of some difficulty keeping up with the paper work in a timely way. Currently Pete does receive Pull-Ups and catheterization supplies that are delivered to the family and paid for through the [place] [employer]. Pete has a brace for one of his feet but this has been very uncomfortable and so he has not been wearing it recently. Pete is in the second grade at [employer] in [place]. He is considered a slow learning in [...] they are concerned about his learning. This sr. social media & mobile manager will be evaluating his individual education plan [...] of concern. Laurel Kraft LCSW NLM/y13 P [id number] signed by Interface, Customs Officer In at 06/14/2005 7:10 PM PDTdoc umented in this encounter Plan of Treatment Not on filedocumented as of this encounter Visit Diagnoses Not on filedocumented in this encounter"
--- OUTSIDE RECORDS SUMMARY | ~2019-10-26 | XMS | Encounter Summary ---
Demographics + + + | Address | [address] | | | [place] [address] | + + + | Home Phone [...] + + + + + | Sarahi Orozoc | ECON | [address] | | | | | [place] | | | | | [address] | | + + + + + Care Team Providers + +------+ + | Care Mall Manager Name | Role | Phone | [...] | | 2005 | Registratio | [facility] | [address] | | | | n | [address] Mailcode: RPB07 | [place], [place] | | | | | [place], [place] | [address] | | | | | [address] | [phone] | | | | | [phone] | | | +--------+ + + + [...]
--- OUTSIDE RECORDS SUMMARY | ~2019-10-26 | XMS | Encounter Summary ---
Demographics + + + | Address | [address] | | | [place] [address] | + + + | Home Phone [...] [place] | | | | | [address] | | + + + + + Care Team Providers + +------+ + | Care Order Make Up Clerk Name | Role | Phone | [...] | | | | hydrocephalu | [address] | [place], [place] | | | | | s, lumbar | [place], | [address] | | | | | region | [place] [address] | Phone: | | | | | Neurogenic | Phone: | [phone] | | | | | bladder, NOS | [phone] | Fax: | | | | | Procedures | Fax: | [phone] | | | | | [place] | [phone] | | | | | | [place],RETROPERI [...] Office | [facility] at [facility] 7th | Anita Lopez, | Spina Bifida without | | 2006 | Visit | Floor [address] | PNP [address] | Mention of | | | | St Mailcode: [facility] | [facility] | Hydrocephalus, | | | | [facility] [place] | [place], [place] | Lumbar Region; | | | | [address] | [address] | Neurogenic Bladder, | | | | [phone] | [phone] | NOS; Neurogenic | | | | [...] [facility]IC once per day with a 10 congolese straight c atheter. He leaks inbetween and at night (if he does not cath before bed). He will void in t toilet with abdominal pressure or just leak. Urinary Infections: None in over 2 years. Continence: Leaks inbetween as he only is on CIC once per day (he is supposed to cath at 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 He will often sit and try to have a bowel movement with abdominal pain. Hospitalizations: None since last being seen Surgeries: FOOD SERVICE HOTEL RUNNER Shunt: no History of 2 spinal cord [...]
--- OUTSIDE RECORDS SUMMARY | ~2019-10-26 | XMS | Encounter Summary ---
Demographics + + + | Address | [address] | | | [place] [address] | + + + | Home Phone [...] [place] | | | | | [address] | | + + + + + Care Team Providers + +------+ + | Care Auction Assistant Name | Role | Phone | [...] as of this encounter Progress Notes Interface, Loop Sewer In - 06/15/2005 12:07 AM PDT [id number] PAM Escobar CLINIC DATE: 01/31/2005 ORTHOPEDIC ADAMA [...] OUT. LUNA COTTRELL M.D. LUZ / SALVADOR [id number] / [id number] / [id number] / [id number] ELECTRONICALLY SIGNED BY LUNA COTTRELL 02-21-2005 10:32:57 AM documented i n this encounter Plan of Treatment Not on filedocumented as of this encounter Visit Diagnoses Not on filedocumented in this encounter"
--- OUTSIDE RECORDS SUMMARY | ~2019-10-26 | XMS | Encounter Summary ---
Demographics + + + | Address | [address] | | | [place] [address] | + + + | Home Phone [...] [place] | | | | | [address] | | + + + + + Care Team Providers + +------+ + | Care Cast Iron Dipper Name | Role | Phone | + +------+ + | Umm Kaufman MD | PCP | | + +------+ + Encounter Details +--------+ + + + + | Date | Type | Department | Care Team | Description | +--------+ + + + + | 06/10/ | Customer Relations Assistant | Urology -Pediatric | Justice Douglas, | Neurogenic bladder, | | 2010 | | [address] | [address] [facility] | NOS; | | | | Mailcode: CDW6 | [address] | Lipomyelomeningocele | | | | [place] | [place], [place] | | | | | [place], [place] | [address] | | | | | [address] | [phone] | | | | | [phone] | | | +--------+ + + + [...]
--- OUTSIDE RECORDS SUMMARY | ~2019-10-26 | XMS | Encounter Summary ---
Demographics + + + | Address | [address] | | | [place] [address] | + + + | Home Phone [...] [place] | | | | | [address] | | + + + + + Care Team Providers + +------+ + | Care Corporate Analyst Name | Role | Phone | + +------+ + | Dajuan Jerome MD | PCP | | + +------+ + Reason for Visit + + + | Reason | Comments | + + + | Headache | | + + + Encounter Details +--------+ + + + + | Date | Type | Department | Care Team | Description | +--------+ + + + + | 06/01/ | Telephone | [facility] at [facility] 7th | Enri[place], | Headache | | 2008 | | Floor [address] | Neli, STAFF ELECTRONIC WARFARE OFFICER [address] | | | | | St Mailcode: [facility] | [address] | | | | | [place], [place] | [place], [place] | | | | | [address] | [address] | | | | | [phone] | | | +--------+ + + + [...]
--- OUTSIDE RECORDS SUMMARY | ~2019-10-26 | XMS | Encounter Summary ---
Demographics + + + | Address | [address] | | | [place] [address] | + + + | Home Phone [...] [place] | | | | | [address] | | + + + + + Care Team Providers + +------+ + | Care Entertainer Or Variety Artist Name | Role | Phone | + [...] | | bifida | PEDS | [facility] | | | | | without | SPECIALISTS | Mailcode: | | | | | mention of | OF [place] | [facility] | | | | | hydrocephalu | [address] | [place], [place] | | | | | s, lumbar | [address] | [address] | | | | | region | [address] | Phone: | | | | | Neurogenic | [place], | [phone] | | | | | bladder, NOS | [place] [address] | Fax: | | | | | Procedures | Phone: | [phone] | | | | | MM | [phone] | | | | | | | Fax: | | | | | | | [phone] | | + +--------+ + + + + Encounter Details +--------+---------+ + + + | Date | Type | Department | Care Team | Description | +--------+---------+ + + + | 12/18/ | Office | [facility] at [facility] 7th | Cy Hutson | Lipomyelomeningocele | | 2010 | Visit | Floor [address] | , PT [address] [facility] | ; Contracture of | | | | St Mailcode: [facility] | [address] | ankle and foot | | | | [facility] [place], [place] | [place] [address] | joint; Monoparesis | | | | [address] | | ([facility]); 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 PHYSICAL THERAPY EVALUATION [facility] SPINA BIFIDA PROGRAM DATE OF SERVICE: 12/18/2010 DATE: 1995 AGE: 14 years, 11 month, and 30 days PRIMARY CARE PHYSICIAN: Umm Kaufman MD REASON FOR VISIT: Return appointment: Interim evaluation re[facility] visit (LCV), for [...] 06/2009 DR. MERARY AYALA ([facility]) FAMILY AND PATIENT CONCERNS: Pete and [...] (PT) services. He remai ns enrolled at [facility] in [place] for orthopedic care and orthotic management. He has a follow-up appointment at [facility] on 11/04/10. GENERAL OBSERVATIONS AND BEHAVIOR: Pete [...] the right, reflecting the right ankle and miles t weakness. At that time he could [...] is intact elsewhere. He reports that the lebvrk-zb-v-shoe sensation is much worse (and typically so) [...] devices; limitations walking outdoors and in the [facility] ty. Level III: Walks with assistive mobility devices; limitations walking outdoors and in the community. Level IV: Self-mobility with limitations; children use wheeled mobility. Level V: Self-mobility is severely limited even with the use of assistive technology On the [facility] Pete functions at Level I ASSESSMENT: Gabriel has enjoyed apparent roman catholic of his proprioceptive and kinesthetic a wareness in his right lower limb. His gait shows commensurate improvement. Pete is now ap parently stable with respect to his musculoskeletal system and neuromotor functioning. He has had an interval UTI The reader is referred to the report from this same day from Kiera Johnson MD, Developmental Certified Tumor Registrar and Anthropology Faculty Member of the Spina Bifida Program regarding disposition [...] PT, PCS Physical Therapist Pediatric Clinical Specialist [facility] [phone] [email or web address] documented in th is encounter Plan of Treatment Not on filedocumented as of this encounter Procedures + +--------+ + + + | Procedure Name | Priori | Date/Time | Associated Diagnosis | Comments | | | ty | | | | + +--------+ + + + | [place] PHYS THERAP[facility] | Routin | 12/18/2010 | [...]
--- OUTSIDE RECORDS SUMMARY | ~2019-10-26 | XMS | Encounter Summary ---
Demographics + + + | Address | [address] | | | [place] [address] | + + + | Home Phone [...] [place] | | | | | [address] | | + + + + + Care Team Providers + +------+ + | Care Linter Drier Operator Name | Role | Phone | [...] + + | 06/06/ | Documentati | [facility] 7th | [place], | Spina bifida | | 2008 | on | Floor [address] | Neli, ADVERTISING STATISTICAL CLERK [address] | | | | | St Mailcode: [facility] | [address] | | | | | [facility], [place] | Rd [place], [place] | | | | | [address] | [address] | | | | | [phone] | | | +--------+ + + + [...]
--- OUTSIDE RECORDS SUMMARY | ~2019-10-26 | XMS | Encounter Summary ---
Demographics + + + | Address | [address] | | | [place] [address] | + + + | Home Phone [...] [place] | | | | | [address] | | + + + + + Care Team Providers + +------+ + | Care Host Hostess Name | Role | Phone | + +------+ + | Dajuan Jerome MD | PCP | | + +------+ + Encounter Details +--------+ + + + + | Date | Type | Department | Care Team | Description | +--------+ + + + + | 02/08/ | Procedure - | Digestive Health | Record, Operation | Operative Report | | 1995 | | [place] at [facility] [address] | | | | | Transcribed | Nasir Tineo | | | | | | Mailcode: Center | | | | | | for [facility] and | | | | | | Healing, [address] | | | | | | [place], [place] | | | | | | [address] | | | | | | [phone] | | | +--------+ + + + [...] are in the | | | | [facility] | | results section. | + +--------+ + + + documented in this encounter Results OPERATION RECORD (02/09/1996 12:00 AM PST) + + | Procedure Note | + + | 02/09/1996 12:00 AM [facility] | | [facility] | | [facility] [place], [place] [address] | | [facility] | | | | OPERATION RECORD | | | | Med Rec No.: [id number] Date: 02/09/96 | | | | Name: Pete Orozco Luz | | | | | | ATTENDING SURGEON: Shiraz Vance Jr., MShelley., F.A.A.P. | | Magnetizer, Neurosurgery | | and Pediatrics | | | | | | PROFESSOR OF JOURNALISM(S): Radhames Booker M.D. | | Resident, Neurosurgery [...] | | INDICATIONS: Pete Orozco is a oii-ydrk-inz infant with | | a lipomyelomeningocele. His [...] | | lowest exposed level with a [place] rongeur. | | | | Using the [...] Shiraz Vance Jr., M.D., F.A.A.P. | | Magnetizer, Neurosurgery | | and Pediatrics | | | | Linda/luis angel | | | | P | | | | cc: | | | | | | GEOFF MOHAN MD | | [address] | | [place] [address] | | | + + documented in this encounter Visit Diagnoses Not on filedocumented in this encounter"
--- OUTSIDE RECORDS SUMMARY | ~2019-10-26 | XMS | Encounter Summary ---
Demographics + + + | Address | [address] | | | [place] [address] | + + + | Home Phone [...] [place] | | | | | [address] | | + + + + + Care Team Providers + +------+ + | Care Orthotic Finish Grinding Technician Name | Role | Phone | [...] Rd | | | | | | [place], [place] | | | | | | [address] | | | | | | [phone] | | | +--------+ + + + [...] | e | 1:42 PM | other site(627.) | procedure are in the | | | | PDT | [ICD-9-CM] | results section. | + +--------+ + + + | CULTURE, TISSUE | Routin | 03/06/2015 | Pressure ulcer, | Results for this | | | e | 1:42 PM | other site(707.11) | procedure are in the | | [...] + | [facility] - | [address] | [place] [address] | | | [place] | | | | + + + [...] + | [facility] - | [address] | [place] [address] | | | [place] | | | | + + + + + documented in this encounter Visit Diagnoses + + | Diagnosis | + + | Pressure ulcer, other site(707.09) Pressure ulcer, other site | + + documented in this encounter"
--- OUTSIDE RECORDS SUMMARY | ~2019-10-26 | XMS | Encounter Summary ---
Demographics + + + | Address | [address] | | | [place] [address] | + + + | Home Phone [...] [place] | | | | | [address] | | + + + + + Care Team Providers + +------+ + | Care Production Analyst Name | Role | Phone | [...] as of this encounter Progress Notes Interface, Knitting Teacher In - 06/09/2006 1:03 AM PDTCLINIC DATE: 05/03/2003 CLINIC NAME: SP[facility] BIFIDA CLINIC DISCIPLINE: ORTHOPEDICS DIAGNOSES: 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 HISTORY OF PRESENT ILLNESS: Pete Orozco is a ymobx-akzp-swl male, who is here today for follow-up [...] mother was given instructions to contact her lawn technician in [place], to find out which vendor provides orthotics for [facility] patients. I will see Pete when he returns for his next routine full clinic appointment, or sooner if needed. Reyna Buckley M.D. RM:[id number] signed by Interface, Knitting Teacher In at 06/09/2006 1:03 AM PDTdoc umented in this encounter Plan of Treatment Not on filedocumented as of this encounter Visit Diagnoses Not on filedocumented in this encounter"
--- OUTSIDE RECORDS SUMMARY | ~2019-10-26 | XMS | Encounter Summary ---
Demographics + + + | Address | [address] | | | [place] [address] | + + + | Home Phone [...] [place] | | | | | [address] | | + + + + + Care Team Providers + +------+ + | Care Building Engineer Name | Role | Phone | + +------+ + | Umm Kaufman MD | PCP | | + +------+ + Reason for Visit + + + | Reason | Comments | + + + | Postoperative visit | surg. 06/26/2011 | + + + | Neurogenic bladder | Lipomyelomeningocele | + + + | Erroneous Encounter | | | - Disregard | | + + + Encounter Details +--------+---------+ + + + | Date | Type | Department | Care Team | Description | +--------+---------+ + + + | 07/16/ | Office | Urology -Pediatric | Justice Douglas, | Neurogenic bladder, | | 2010 | Visit | [address] | [address] [facility] | NOS; | | | | Mailcode: CDW6 | [address] | Lipomyelomeningocele | | | | Anna | [place], [place] | ; Neurogenic bowel; | | | | [place], [place] | [address] | ERRONEOUS ENCOUNTER | | | | [address] | [phone] | - NO DIAGNOSIS | | | | [phone] | | | +--------+---------+ + + + [...] encounter Progress Notes Justice Douglas MD - 08/07/2011 9:16 PM PDT This encounter was opened in error. Please disregard this note. 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
--- OUTSIDE RECORDS SUMMARY | ~2019-10-26 | XMS | Encounter Summary ---
Demographics + + + | Address | [address] | | | [place] [address] | + + + | Home Phone [...] [place] | | | | | [address] | | + + + + + Care Team Providers + +------+ + | Care Fur Tailor Name | Role | Phone | + [...] | | | | | | [place], | | | | | | [place] [address] | | | | | | [phone] | | | +--------+ + + + [...] as of this encounter Progress Notes Interface, Fine Grader In - 02/10/2007 5:02 AM PDT CLINIC [...] . Raul Zamora Physical Therapist WF:vitaliy nterface, Fine Grader In - 02/10/2007 5:02 AM PDT CLINIC [...] growing up. 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 This family lives in [place] with Nicky's srti-vfyp-ybe son, Dave, by a prior marriage. A review of community resources reveals that Pete is covered through the [facility] and his managed care program is through [facility]. Umm Kaufman M.D. is his local primary care provider. He receives Supplemental Security Income (SSI). He has been evaluated by the local Early Intervention staff, but services are not likely to begin until the fall. Pete's parents are obviously eager to do the best that they can with him. This social media director remains available as needed. Neli Robison LCSW American History Professor BD /josiane A cc: nterface, Fine Grader In - 02/10/2007 5:02 AM PDT CLINIC [...] MRI of the brain. Robert Johnson M.D. 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 He is accompanied by both parents for today's first evaluation at [facility]. HEALTH CARE MAINTENANCE Pete receives his primary care from Dr. Kaufman in [place]. He had repair of his lipomeningocele on 02/09/96 at 7 weeks of age here at [facility]. The parents report he has [...] therapy report. PLAN Pete should return to [facility] for full evaluation in six months. In the interim he will have follow-up at the [facility] in July 1996. We will continue to monitor his growth and development as well as bowel and bladder issues. Annabelle Burnett R.N., B.S.N. Nurse Congressional Assistant AYAKA/jose a P nterface, Fine Grader In - 02/10/2007 5:02 AM PDT CLINIC DATE: CLINIC NAME: DISCIPLINE: ORTHOPEDICS Pete is a xsra-eddtb-nqe boy who presents with a previously resected lipomeningocele, which was done around the time of . The parents have noted no particular motor difficulties. Spinal microdissection was done at the time of the initial closure. Physical examination shows that he is a healthy-appearing rota-nxdke-pqb boy. He has a posterior midline closure [...] at his next appointment. Gilbert Romero M.D. Tactical Air Control Party, Orthopedics and Rehabilitation ANAMARIA/daisy A nterface, Fine Grader In - 02/10/2007 5:02 AM PDT CLINIC DATE: 04/20/96 CLINIC NAME: ?? 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 Darryl Cox M.D. Resident, Urology Dylan Agarwal M.D. Professor, Surgery Pediatric Urology MATT/telma P cc: nterface, Fine Grader In - 02/10/2007 5:02 AM PDT CLINIC [...] six months. Shiraz Vance Jr., M.D., F.A.A.P. Cleaning Professional, Neurosurgery and Pediatrics PATRICK/telma P cc: nterface, Fine Grader In - 02/10/2007 5:02 AM PDT CLINIC [...] months and that can be performed at [facility] or at another facility. Faina Ledesma Audiology Fellow Ines Steel Ed.D. Locksmith Helper DP /omar P cc: documented in this encounter Plan of Treatment Not on filedocumented as of this encounter Visit Diagnoses Not on filedocumented in this encounter"
--- OUTSIDE RECORDS SUMMARY | ~2019-10-26 | XMS | Encounter Summary ---
Demographics + + + | Address | [address] | | | [place] [address] | + + + | Home Phone [...] [place] | | | | | [address] | | + + + + + Care Team Providers + +------+ + | Care Home Health Registered Nurse Name | Role | Phone | [...] as of this encounter Progress Notes Interface, Resident Medical Officer In - 05/30/2006 3:07 AM PDTCLINIC DATE: 03/06/2003 PEDIATRIC NEUROSURGERY CLINIC SUBJECTIVE: Pete and his brother and father returned to clinic today for a postoperative check. This child recently underwent a release of tethered cord by Dr. Nettles. He is usually followed in [facility] here at the [facility]. Since surgery according to father he has [...] or other exams. ASSESSMENT AND PLAN: In [facility], this is a young child who [...] is not currently working. Christin Garcia. / [id number] / [id number] / [id number] / Tdocumented in this encounter Plan of Treatment Not on filedocumented as of this encounter Visit Diagnoses Not on filedocumented in this encounter"
--- OUTSIDE RECORDS SUMMARY | ~2019-10-26 | XMS | Encounter Summary ---
Demographics + + + | Address | [address] | | | [place] [address] | + + + | Home Phone [...] [place] | | | | | [address] | | + + + + + Care Team Providers + +------+ + | Care Electronic Field Service Engineer Name | Role | Phone | + +------+ + | Umm Kaufman MD | PCP | | + +------+ + Encounter Details +--------+ + + + + | Date | Type | Department | Care Team | Description | +--------+ + + + + | 12/22/ | Documentati | [facility] at [facility]th | Nereyda Solares PNP | | | 2010 | on | Floor [address] | [address] | | | | | St Mailcode: [facility] [address] [place], | | | | | [facility] [place], [place] | [place] [address] | | | | | [address] | [phone] | | | | | [phone] | | | +--------+ + + + [...]
--- OUTSIDE RECORDS SUMMARY | ~2019-10-26 | XMS | Encounter Summary ---
Demographics + + + | Address | [address] | | | [place] [address] | + + + | Home Phone [...] [place] | | | | | [address] | | + + + + + Care Team Providers + +------+ + | Care Corporate Webmaster Name | Role | Phone | + [...] | | | bifida | [place] | [facility] [facility] [address] | | | | | without | COUNTY | Mailcode: | | | | | mention of | HEALTH DEPT | [facility] | | | | | hydrocephalu | [address] | [place], [place] | | | | | s, lumbar | [place], | [address] | | | | | region | [place] [address] | Phone: | | | | | Neurogenic | Phone: | [phone] | | | | | bladder, NOS | [phone] | Fax: | | | | | Procedures | Fax: | [phone] | | | | | SB SPECIAL | [phone] | | | | | | MM, EA | | | +--------+--------+ + + + + Encounter Details +--------+---------+ + + + | Date | Type | Department | Care Team | Description | +--------+---------+ + + + | 01/16/ | Office | [facility] 7th | Nereyda Solares PNP | Lipomyelomeningocele | | 2009 | Visit | Floor [address] | [address] | (Primary Dx); Leg | | | | St Mailcode: [facility] | Maritza Ferreira [place], | Length Discrepancy, | | | | [facility] [place] | [place] [address] | right; Scoliosis; | | | | [address] | [phone] | Change of life; | | | | [phone] | | Neurogenic bladder, | | | | | | NOS; Neurogenic | | | | | | bowel; Monoparesis | | | | | | ([facility]) | +--------+---------+ + + + Social History [...] complex orthopedic surgery 10/26/07 DR. MERARY CANTRELL ([facility]) Right ankle/foot orthopedic surgery 06/2009 DR. MERARY CANTRELL ([facility]) History Social History Narrative Pete lives with his mother, Nicky, in [place], [place]. Last year (2008) his parents divor anuja and Pete's younger brother, Jared now lives with his father, Yamil, in [place], [place]. Pete's older brother, Dave, has returned to [place] from [place], [place], where he was l iving with an aunt. Pete is an 8th-grade student ([phone]). Current outpatient prescriptions: Catheter Misc, by Misc.(Non-Drug; [...] Treatment: Clean intermittent catheterization: yes size: 14 Chinese. He is prescrib ed 5 mg Ditropan [...] Complex surgery 12/21 (Luna Cottrell MD at [facility]), however, right foot deformitie s continued [...] Wearing new AFO on right foot from [employer]. Gait: normal ex cept for subtle drop-off [...] encouraged baseline evaluation. Optometry screening exam at [facility], negative for visual acuity problems. ROS: Except [...] in no apparent distress. He is fully marketing communications coordinator perative with today's interview and exam. HEENT: [...] We encourage dilated fundal exam with an overlock sleeve setter, locally or here at [facility]. Dr. Jerome to make referral. Neurogenic Bladder: [...] more than 50% was spent in [facility]. FOLLOW UP: Full team with renal ultrasound in 6 months. KAREL Matthews Pediatric Nurse Practitioner Spina Bifida Program PH: [phone] Email: [email or web address] documented in this enco unter Plan of [...] + + | Performing | Address | City/State/[facility] [[email or web address] | Phone Number | | Organization | [...]
--- OUTSIDE RECORDS SUMMARY | ~2019-10-26 | XMS | Encounter Summary ---
Demographics + + + | Address | [address] | | | [place] [address] | + + + | Home Phone [...] [place] | | | | | [address] | | + + + + + Care Team Providers + +------+ + | Care Metalizer Name | Role | Phone | + [...] | 05/03/ | Office | [facility] | [place], | Spina Bifida without | | 2007 | Visit | Floor [address] | Neli, PARTY SUPPLY SPECIALIST [address] | Mention of | | | | St Mailcode: [facility] | [address] [facility] | Hydrocephalus, | | | | [facility] [place], [place] | [address] [place], [place] | Lumbar Region; | | | | [address] | [address] | Delayed Milestones | | | | [phone] | | | +--------+---------+ + + + [...] Progress Neli Kumar - 05/03/2008 10:31 AM [facility] Social Work Note - Sp[facility] Bifida Clinic Pete, 12 years of age, comes to [facility] with his father Yamil and his broth fish Coleman. This is a return visit for Pete, he has a diagnostic list that includes a repair ed lipomyelomeningocele, neurogenic bowel and bladder. Pete lives in [place] with his parents and 10 year old [...] b aseball team and in a [employer] troop. He has some nice responsibilities at home that includ es washing dishes, taking garbage out and doing some laundry chores. Pete is a 6th grader at [employer] where he is on an IEP and [...] Gabriel [facility], medical insurance is through [facility] [...] they do have free food pantries in [facility] and Nicky uses them regularly. Family income is too high for food stamp eligibility. These are issues that so cia work might monitor during future visits to clinic for Pete. NELI [facility] Social Work Department [facility] phone: [phone] Addendum: 05/05/08, I called Thania and described [...]
--- OUTSIDE RECORDS SUMMARY | ~2019-10-26 | XMS | Encounter Summary ---
Demographics + + + | Address | [address] | | | [place] [address] | + + + | Home Phone [...] [place] | | | | | [address] | | + + + + + Care Team Providers + +------+ + | Care Adjunct Professor Of U.S. History Name | Role | Phone | + [...] [address] | PNP [address] [facility] | | | | | Mailcode: CDW6 | [address] | | | | | [place] | [place], [place] | | | | | [place], [place] | [address] | | | | | [address] | [phone] | | | | | [phone] | | | +--------+ + + + [...] couple of months and coordinate [facility] peds surgery appt to review surgical options [...] | | + +---------+--------+ + + | ID | Imaging | Routin | Neurogenic | [...] + +--------+ + + + | ID INJECTION FOR | Routin | 01/16/2011 | Neurogenic | | | BLADDER X-RAY | e | 11:45 AM | bladder, NOS | | | | | PST | Lipomyelomeningocele | | | | | | Neurogenic bowel | | + +--------+ + + + | ID CYSTOMETROGRAM | Routin | 01/16/2011 | Neurogenic | | | W/DIRECTOR EMBALMER | e | 11:45 AM | bladder, NOS | | | | | PST | Lipomyelomeningocele | | | | | | Neurogenic bowel | | + +--------+ + + + | ID INTRAABDOMINAL | Routin | 01/16/2011 | Neurogenic | | | PRESSURE TEST | e | 11:45 AM | bladder, NOS | | | | | PST | Lipomyelomeningocele | | | | | | Neurogenic bowel | | + +--------+ + + + | ID ANAL/URINARY | Routin | 01/16/2011 | Neurogenic [...] DRAPER | 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
--- OUTSIDE RECORDS SUMMARY | ~2019-10-26 | XMS | Encounter Summary ---
Demographics + + + | Address | [address] | | | [place] [address] | + + + | Home Phone [...] [place] | | | | | [address] | | + + + + + Care Team Providers + +------+ + | Care Director Of Software Development Name | Role | Phone | + [...] as of this encounter Progress Notes Interface, Forest Engineer In - 06/15/2005 12:04 AM PDT [id number] 12/17/2004 12/17/2004 [id number] [facility] Date: 12/17/2004 Patient is an 8-year-old male with a history of lipomeningocele. He has been indicated for soft tissue releases about the right foot. He has pretty progressive deformity and very stiff foot. He was visited with Dr. Cobb today. Dad signed the consent freely after a PARQ conference was held for soft tissue release of the right foot. Plan is to have him come in tomorrow at 6 a.m. NPO instructions were given. He will go to the PAT clinic although no labs were ordered. Dad understands all the risks and benefits and will follow up in the morning. The plan is to bring back in four weeks. At that point in time, take his cast off, fit him for a brace and then bring him back in a couple weeks for the brace fitting. Dad also mentioned at the very end of the visit today that someone down at [facility] mentioned that he might need some followup for his spine and we are probably not going deal with that at today's visit but would like to get his surgery going. On one of his postoperative visits though, he would require a scoliosis spine view so that could be looked at a little closer. Dad had a good understanding of the plan and he will follow up as advised. Mariana Najera/bonilla P [id number] cc: documented i n this encounter Plan of Treatment Not on filedocumented as of this encounter Visit Diagnoses Not on filedocumented in this encounter"
--- OUTSIDE RECORDS SUMMARY | ~2019-10-26 | XMS | Encounter Summary ---
Demographics + + + | Address | [address] | | | [place] [address] | + + + | Home Phone [...] [place] | | | | | [address] | | + + + + + Care Team Providers + +------+ + | Care Group Exercise Class Instructor Name | Role | Phone | + +------+ + PCP | Unavailable | + +------+ + Encounter Details +--------+ + + + + | Date | Type | Department | Care Team | Description | +--------+ + + + + | 01/04/ | Results | [facility] at [facility] 7th | Marcio, | | | 2002 | Only | Floor [address] | MD Reyna [address] | | | | | St Mailcode: [facility] | [facility] | | | | | [facility] [place], [place] | [address], [place] | | | | | [address] | [address] | | | | | [phone] | | | +--------+ + + + [...] | | + +---------+ + + | [facility] DEPARTMENT OF | | | | | RADIOLOGY | | | | + +---------+ + + documented in this encounter Visit Diagnoses Not on filedocumented in this encounter"
--- OUTSIDE RECORDS SUMMARY | ~2019-10-26 | XMS | Encounter Summary ---
Demographics + + + | Address | [address] | | | [place] [address] | + + + | Home Phone [...] [place] | | | | | [address] | | + + + + + Care Team Providers + +------+ + | Care B Operator Name | Role | Phone | [...] as of this encounter Progress Notes Interface, Wastewater Treatment Engineer In - 07/10/2006 3:09 AM PDTCLINIC DATE: [...] Pete today with Ngoc Weeks, physical therapy international student advisor, who did some of Pete's examination. Physical [...] or sooner upon request. Raul Zamora WF/x88 [id number] signed by Fredo, Wastewater Treatment Engineer In at 07/10/2006 3:09 AM Barak huddleston, Wastewater Treatment Engineer In - 07/10/2006 3:09 AM PDTCLINIC DATE: [...] and was seen by a doctor in [place] who obtained a urinalysis that grew some bacteria. He was given a course of cephalexin. The child apparently took a few capsules but did not like the capsule dissolving in his mouth and stopped taking the medication. He has been asymptomatic since that time. His supposed to catheterize every four hours with an 8 Romanian catheter, and he apparently does this himself [...] ultrasound and serum chemistries. Danny Dhaliwal M.D. Respiratory Therapy Manager Clinical Professor Pediatric Urology DBL/x36 cc: Morris Forbes [place] [id number] signed by Interface, Wastewater Treatment Engineer In at 07/10/2006 3:09 AM [facility]ed in this encounter Plan of Treatment Not on filedocumented as of this encounter Visit Diagnoses Not on filedocumented in this encounter"
--- OUTSIDE RECORDS SUMMARY | ~2019-10-26 | XMS | Encounter Summary ---
Demographics + + + | Address | [address] | | | [place] [address] | + + + | Home Phone [...] [place] | | | | | [address] | | + + + + + Care Team Providers + +------+ + | Care Sales Agent Casualty Insurance Name | Role | Phone | + [...] | 2010 | Visit | [address] | [address] [facility] | NOS; | | | | Mailcode: CDW6 | [address] | Lipomyelomeningocele | | | | Anna | [place], [place] | ; Neurogenic bowel; | | | | [place], [place] | [address] | ERRONEOUS ENCOUNTER | | | | [address] | [phone] | - NO DIAGNOSIS | | | | [phone] | | | +--------+---------+ + + + [...]
--- OUTSIDE RECORDS SUMMARY | ~2019-10-26 | XMS | Encounter Summary ---
Demographics + + + | Address | [address] | | | [place] [address] | + + + | Home Phone [...] [place] | | | | | [address] | | + + + + + Care Team Providers + +------+ + | Care Life Support Technician Name | Role | Phone | [...] | | bifida | [place] | [facility] | | | | | without | COUNTY | Mailcode: | | | | | mention of | HEALTH DEPT | [facility] | | | | | hydrocephalu | [address] | [place], [place] | | | | | s, lumbar | [place], | [address] | | | | | region | [place] [address] | Phone: | | | | | Neurogenic | Phone: | [phone] | | | | | bladder, NOS | [phone] | Fax: | | | | | Procedures | Fax: | [phone] | | | | | SB SPECIAL | [phone] | | | | | | MM, EA | | | +--------+--------+ + + + + Encounter Details +--------+---------+ + + + | Date | Type | Department | Care Team | Description | +--------+---------+ + + + | 01/16/ | Office | [facility] | Cy Hutson | Lipomyelomeningocele | | 2009 | Visit | Floor [address] | ., PT [address] [facility] | ; Monoparesis (HCC); | | | | St Mailcode: [facility] | [address] | Contracture of | | | | [facility], [place] | [place] [address] | ankle and foot | | | | [address] | | joint; Scoliosis; | | | | [phone] | | Leg Length | | | [...] t from the original. PHYSICAL THERAPY EVALUATION [facility] SPINA BIFIDA PROGRAM DATE OF SERVICE: 01/16/2010 [...] orthopedic surgery 10/26/07 DR. MERARY AYALA ([facility]) At his right foot Pete [...] (PT) services. He remai adrianna enrolled at [facility] in [place] for orthopedic care and orthotic management. GENERAL [...] is intact elsewhere. He reports that the rlvhlv-cb-r-shoe sensation is much worse (and typically so) [...] Ankle Foot Orthosis (AFO) he received from [facility] in [place] after his cast removal last . He [...] mother. I sugge sted that they call [facility] in [place] to have this addressed. GAIT: Ptee's gait is essentially normal, except for subtle [...] related referral. I did urge return to [facility] in [place] because of the new visibility of the [...] welcome questions related to this report at [phone]. IDALMIS HUTSON PT, PCS Physical Therapist Pediatric Clinical Specialist [facility] [phone] [email or web address] documented in th is encounter Plan of Treatment + + +--------+ + + | Name | Type | Priori | Associated Diagnoses | Order Schedule | | | | ty | | | + + +--------+ + + | [place] [facility] | Procedures | Routin | [...]
--- OUTSIDE RECORDS SUMMARY | ~2019-10-26 | XMS | Encounter Summary ---
Demographics + + + | Address | [address] | | | [place] [address] | + + + | Home Phone [...] [place] | | | | | [address] | | + + + + + Care Team Providers + +------+ + | Care Quality Intern Name | Role | Phone | + +------+ + | Dajuan Jerome MD | PCP | | + +------+ + Encounter Details +--------+ + + + + | Date | Type | Department | Care Team | Description | +--------+ + + + + | 07/13/ | Transcribed | Allergy Clinic at | Dictation, Other | Transcribed | | 1995 | | [facility] [address] | | | | | | Ashley Acevedo | | | | | | Mailcode: OP34 [facility] | | | | | | C[place] | | | | | | [facility] | | | | | | [place] [address] | | | | | | [phone] | | | +--------+ + + + [...] as of this encounter Progress Notes Interface, Clock Repairer In - 02/03/2007 8:04 AM PDT [facility] [address], [place], [place] [address] July 13, 1996 UMM NG MD [address] [place] [address] [place] [address] RE:Pete Orozco MR#:[id number] : [birth year] Dear Umm, We saw mit-wptij-cry Pete today in the [facility]. You will recall that you saw him just yesterday. We are doing evaluations of reported weakness on the right side. In retrospect, parents reported to me at the time of the first full evaluation April,, that therapists from [facility] ([facility]) had found left-sided preference with right-sided weakness. [...] early August in [facility] [place] for comparison. He is also due for a full Team check in October. Please feel free to call for any additional clarification, liaison, or coordination if this change is for the worse. Sincerely, Robert Johnson M.D. Neck Band Setter, Pediatrics SHAYNE/sb A C: 07/21/96 lisa cc: THE PARENTS BELGICA SCHMIDT Claire Sandhu R.N. Shutdown Coordinator documented in this encounter Plan of Treatment Not on filedocumented as of this encounter Visit Diagnoses Not on filedocumented in this encounter"
--- OUTSIDE RECORDS SUMMARY | ~2019-10-26 | XMS | Encounter Summary ---
Demographics + + + | Address | [address] | | | [place] [address] | + + + | Home Phone [...] [place] | | | | | [address] | | + + + + + Care Team Providers + +------+ + | Care Percolator Operator Name | Role | Phone | + +------+ + | Dajuan Jerome MD | PCP | | + +------+ + Encounter Details +--------+ + + + + | Date | Type | Department | Care Team | Description | +--------+ + + + + | 10/19/ | Transcribed | Allergy Clinic at | Dictation, Other | Transcribed | | 1995 | | [facility] [address] | | | | | | Ashley Acevedo | | | | | | Mailcode: OP34 [facility] | | | | | | C[place] | | | | | | [facility] | | | | | | [place] [address] | | | | | | [phone] | | | +--------+ + + + [...] as of this encounter Progress Notes Interface, Motorcycle Designer In - 01/26/2007 3:12 AM PDT [facility] [address], [place], [place] [address] October 19, 1996 UMM NG MD [address] [facility] [place] [address] RE:Pete OROZCO Dear Umm: Today we saw 10 month old Pete in Sp[facility] Bifida Clinic here in [place]. You will recall that we just saw him two months ago in the [facility] [place] with Kaleb Cuello. We were particularly interested in seeing how his previous right-sided weakness was doing. There have been no interim problems. Health Maintenance: He still receives all his subspecialty here. No interim problems. 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 The only deficit ever noted was some weakness in plantar flexion at the right ankle. Today on examination, I do notice that he has present plantar flexion, but less often and with less strength than on the left. Otherwise, he has full sensation and full muscle mass available. He is getting to sitting, has protective reflexes, transfers into crawling, pulls to standing and supports himself well. Neurogenic Bladder: He had a normal renal ultrasound and voiding cystourethrogram as a . He has a good urinary stream. He has never had urinary tract infections. No medications. Current goals are just to monitor what may be normal function. Will just get a urinalysis today. Neurogenic Bowel: He has had some over-formed stools in the past, and was treated with Senokot. However, recently, now that he is on a relatively normal diet, this problem has completely resolved. Development: He was registered with Early Intervention, but did not receive any services, probably because he was not eligible. Parents currently describe that he is saying "mama" and "claudine" properly. I have described his motor function above. He certainly is doing normally in all realms. Status Post Right Upper Extremity Weakness: See the previous notes. This was followed for several months. It was very minimal. There were no abnormal findings at any time. We just let this follow its normal course and it did, in fact, totally resolve. 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 We are certainly pleased that it has resolved. PHYSICAL EXAMINATION: Weight is 9.27 kg, length is 74.5 cm (both 50th percentile), and head circumference is 45 cm (25th percentile). General appearance: Well, male; no motor abnormalities; only the visible lipoma over the sacral region. Head, eyes, ears, nose and throat: Normocephalic. Extraocular movements are full. Pupils equal, round, react to light and accommodation. Red reflexes are symmetrical, and there is no nystagmus or strabismus. Tympanic membranes: Normal landmarks and mobility. The spine is straight, and there is a well-healed, midline scar over the lumbosacral region; there is a lipomatous lump over the sacral region, without hirsutism, drainage or discomfort; only some mild hemangiomatous discoloration. Lungs are clear. Heart: Regular rhythm and physiologic sounds. Abdomen: No organomegaly or masses. Hips: Full range of motion. Genitalia: Normal male; testes descended bilaterally; no hernia or hydrocele; not circumcised; meatus is normally positioned. Extremities: Full range of motion throughout, and no orthopedic deformities. NEUROLOGIC EXAMINATION: There are deep tendon reflexes present at both knees. Full strength and normal tone throughout, except for slightly diminished plantar flexion at the right ankle. DISCUSSION: Things are perfectly stable. The only concern was the expected minimal growth of the lipomatous mass. The previously noted right-sided weakness is totally resolved. He is making normal developmental progress. Bowel program is now normal to loose, and he has never had any signs of urinary abnormality. We will just continue to monitor. We will see him again in six months. We will see him again the [facility] in [place] next august. Sincerely, Robert Johnson M.D. Bagman/Woman, Pediatrics SHAYNE/minnie cc: Parents documented in this encounter Plan of Treatment Not on filedocumented as of this encounter Visit Diagnoses Not on filedocumented in this encounter
--- OUTSIDE RECORDS SUMMARY | ~2019-10-26 | XMS | Encounter Summary ---
Demographics + + + | Address | [address] | | | [place] [address] | + + + | Home Phone [...] [place] | | | | | [address] | | + + + + + Care Team Providers + +------+ + | Care Flight Control Manager Name | Role | Phone | [...] | 06/01/ | Telephone | [facility] at [facility] 7th | [place], | Headache | | 2008 | | Floor [address] | Neli, ANESTHESIA DIRECTOR [address] | | | | St Mailcode: [facility] | [address] | | | | | [place], [place] | [place], [place] | | | | | [address] | [address] | | | | | [phone] | | | +--------+ + + + [...]
--- OUTSIDE RECORDS SUMMARY | ~2019-10-26 | XMS | Encounter Summary ---
Demographics + + + | Address | [address] | | | [place] [address] | + + + | Home Phone [...] [place] | | | | | [address] | | + + + + + Care Team Providers + +------+ + | Care Plug Drill Operator Name | Role | Phone [...] | | | bifida | [place] | [facility] | | | | | without | COUNTY | Mailcode: | | | | | mention of | HEALTH DEPT | [facility] | | | | | hydrocephalu | [address] | [place], [place] | | | | | s, lumbar | [place], | [address] | | | | | region | [place] [address] | Phone: | | | | | Neurogenic | Phone: | [phone] | | | | | bladder, NOS | [phone] | Fax: | | | | | Procedures | Fax: | [phone] | | | | | [place] | [phone] | | | | | | US,RETROPERI [...] | 05/03/ | Office | [facility] at [facility] | Nereyda Solares PNP | Spina Bifida without | | 2007 | Visit | Floor [address] | [address] | Mention of | | | | St Mailcode: [facility] | Maritza Ferreira [place], | Hydrocephalus, | | | | [facility] [place] | [place] [address] | Lumbar Region | | | | [address] | [phone] | (Primary Dx); | | | | [phone] | | Neurogenic Bladder, | | | [...] complex orthopedic surgery 10/26/07 DR. MERARY CANTRELL ([facility]) History Social History Narrative Pete lives with his family (parents Yamil and Nicky and younger brother, Jared). Pete 's older brother, Dave, lives with his aunt in [place], [place]. Pete is the middle child. Nathan paul live in [place], [place] where he attends school. Current outpatient [...] rig ht ankle/foot surgery last October at [facility]. LIPOMYELOMENINGOCELE: Initial repair 1995. Secondary untethering [...] Treatment: Clean intermittent catheterization: yes size: 10 Irish. He is prescrib ed 5 mg oxybutynin [...] complex surgery 10/[address] Cantrell at [facility] with good results and much improved [...] an optometry screening exam at [facility], negative for visual acuity problems. ROS: Except [...] encourage dilated fundal exam w ith an frame gate mortiser operator, locally or here at [facility]. Dr. Jerome to make referr al. 3. Neurogenic Bladder: Stable ultrasound today. We have again counseled Pete about takin g Ditropan and cathing on regular schedule. Prescriptions are updated for catheters, diapers and Ditropan. [facility] to order countdown timer watch through [...] Pediatric Nurse Practitioner Spina Bifida Program PH: [phone] Email: [email or web address] documented in this encounter Plan of Treatment [...]
--- OUTSIDE RECORDS SUMMARY | ~2019-10-26 | XMS | Encounter Summary ---
Demographics + + + | Address | [address] | | | [place] [address] | + + + | Home Phone [...] [place] | | | | | [address] | | + + + + + Care Team Providers + +------+ + | Care Television Engineering Teacher Name | Role | Phone | + +------+ + | Dajuan Jerome MD | PCP | | + +------+ + Encounter Details +--------+ + + + + | Date | Type | Department | Care Team | Description | +--------+ + + + + | 10/19/ | Transcribed | Allergy Clinic at | Dictation, Other | Transcribed | | 1995 | | [facility] [address] | | | | | | Ashley Acevedo | | | | | | Mailcode: OP34 [facility] | | | | | | [place] | | | | | | [facility] | | | | | | [place] [address] | | | | | | [phone] | | | +--------+ + + + [...] as of this encounter Progress Notes Interface, Base Remover In - 01/26/2007 3:12 AM PDT [facility] [address], [place], [place] [address] October 19, 1996 UMM NG MD [address] [facility] [place] [address] RE:Pete OROZCO Dear Umm: Today we saw 10 month old Pete in Sp[facility]ida Clinic here in [place]. You will recall that we just saw [...] totally resolve. 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 We are certainly pleased that it [...] see him again the [facility] in [place] next august. Sincerely, Robert Johnson M.D. Cuff Setter Overlock, Pediatrics SHAYNE/minnie cc: Parents documented in this encounter Plan of Treatment Not on filedocumented as of this encounter Visit Diagnoses Not on filedocumented in this encounter
--- OUTSIDE RECORDS SUMMARY | ~2019-10-26 | XMS | Encounter Summary ---
Demographics + + + | Address | [address] | | | [place] [address] | + + + | Home Phone | | + + + | Preferred Language | Unknown | + + + | Marital Status | Unknown | + + + | Pentecostalism Affiliation | Unknown | + + + | Race | Unknown | + + + | Ethnic Group | Unknown | + + + Author + + + | Author | [facility] | | | and [place] | + + + | Organization | [facility] | | | and [place] [...] Team Providers + +------+ + | Care Patient'S Librarian Name | Role | Phone | [...] Encounter | [facility] | [address] [facility] | | | | | CARE FLOOR [address] | [place] [address] | | | 12/20/ | | [address] | [phone] | | | 2018 | | [place], [place] | | | | | | [address] | | | | | | [phone] | | | +--------+ + + + [...] 12/20/181118 Date of Service: 12/20/181115 Status: Signed Faculty Member: Ijeoma Gallardo MD (Physician) [facility] Service: Hospitalist Physician Discharge Summary Pt: Pete Orozco AGE/SEX: 23 y.o. male ROOM: [address] [place] [address] PCP: Brooke Dickson : 1995 Admit date: [...] Procedure Component Value Units Date/Time Fungus culture [[id number]] Collected: 12/19/18 133 Specimen: Body Fluid from Body Fluid Updated: 12/19/18 1743 Anaerobic Culture W/Gram Stain [[id number]] Collected: 12/19/18 133 Specimen: Body Fluid from [...] if needed. Follow-Up: ANDER Herndon [address] [address] In 1 week Cory Tamayo DDS [address] [facility] [address] In 1 week Discharge took more than 35 minutes, to include final examination, discussion of admission, and preparation of prescriptions, instructions for ongoing care, follow up and dictation of summary. Signed: IJEOMA GALLARDO MD 12/20/2018 11:17 AM Dictation software, [employer], used which may contain error for similar [...] 1201 Date of Service: 12/20/181149 Status: Signed Faculty Member: Porsha Barker RN (Registered Nurse) Pt has [...] 114 Date of Service: 12/20/181148 Status: Signed Faculty Member: Janine Kolb RN (Registered Nurse) Reviewed discharge [...] 12/20/18713 Date of Service: 12/20/18710 Status: Signed Faculty Member: Abdulkadir Tolentino RN (Registered Nurse) End of shift note VSS. Hourly rounding remained uneventful thru the day. No other acute changes from previous assessment. 24 hour chart check complete onver diaz Transaction, Provider Unknown - 2018 5:42 PM PST Nurse Progress Note by Pablo Ta at 12/19/181741 Author: Pablo Ta Service: (none) Author Type: Masonry Contractor Administrator Filed: 12/19/181744 Date of Service: 12/19/181741 Status: Signed Faculty Member: Pablo Ta (Masonry Contractor Administrator) Surgical I&D this afternoon with KENY BOOTH. Post op vital signs stable. Pain controlled wit h IV Toradol and Dilaudid. IV abx continued. No current needs. Will continue to monitor. End of shift review complete. Pablo Ta RN onver diaz Transaction, Provider Unknown - 2018 8:02 AM PST Case Management by ALFRED Guadalupe at 12/19/18801 Author: ALFRED Guadalupe Service: (none) Author Type: Paid Search Analyst Filed: 12/19/18802 Date of Service: 12/19/18801 Status: Signed Faculty Member: ALFRED Guadalupe (Paid Search Analyst) CM met with pt for discharge planning. [...] Relationship to Patient significant other Phone number [phone] Mental Status Oriented Anticipated Discharge Plan Post [...] Note by Abdulkadir Tolentino RN at 12/19/18 64 Author: Abdulkadir Tolentino RN Service: (none) Author Type: Registered Nurse Filed: 1826 Date of Service: 12/19/18519 Status: Signed Faculty Member: Abdulkadir Tolentino RN (Registered Nurse) End of shift note Pt admitted in AM from [facility]. S. 24 hour chart check complete onver diaz Transaction, Provider Unknown - 2018 4:31 AM PST Pharmacy Note by Julianna Faustin RPH at 12/19/18430 Author: Julianna Faustin RPH Service: Pharmacy Author Type: Pharmacist Filed: 12/19/18430 Date of Service: 12/19/18430 Status: Signed Faculty Member: Julianna Faustin RPH (Pharmacist) Clinical Pharmacy Note: [...] | | | Basophils | performed at [facility], [address] | K/uL | LAB | | | | [address], | | | | | | [place] [address] | | | | + + + [...] EXTERNAL | | | | performed at [facility], [address] | | LAB | | | | [address], | | | | | | [place] [address] | | | | + + + [...] | | | | | performed at [facility], [address] | | | | | | [facility], | | | | | | [place] [address] | | | | + + + [...] | | | Basophils | performed at [facility];[address] | K/uL | LAB | | | | [address];[place] | | | | | | [address] | | | | + + + [...] EXTERNAL | | | | performed at [facility];[address] | | LAB | | | | [address];[place], [place] | | | | | | [address] | | | | + + + [...] EXTERNAL | | | | performed at [facility];[address] | | LAB | | | | [address];[place] | | | | | | [address] | | | | + + + [...] EXTERNAL | | | | performed at [facility];[address] | mmol/L | LAB | | | | [address];[place], [place] | | | | | | [address] | | | | + + + [...] | | | | | performed at [facility];[address] | | | | | | [facility];[place], [place] | | | | | | [address] | | | | + + + [...]
--- OUTSIDE RECORDS SUMMARY | ~2019-10-26 | XMS | Encounter Summary ---
Demographics + + + | Address | [address] | | | [place] [address] | + + + | Home Phone [...] [place] | | | | | [address] | | + + + + + Care Team Providers + +------+ + | Care Centrex Radio Operator Name | Role | Phone | [...] as of this encounter Progress Notes Interface, Clinical Operations Manager In - 06/15/2005 12:04 AM PDT [id number] 12/17/2004 12/17/2004 [id number] [facility] Date: 12/17/2004 Patient [...] the visit today that someone down at [facility] mentioned that he might need some followup [...] follow up as advised. Mariana Najera/bonilla P [id number] cc: documented i n this encounter Plan of Treatment Not on filedocumented as of this encounter Visit Diagnoses Not on filedocumented in this encounter"
--- OUTSIDE RECORDS SUMMARY | ~2019-10-26 | XMS | Encounter Summary ---
Demographics + + + | Address | [address] | | | [place] [address] | + + + | Home Phone [...] [place] | | | | | [address] | | + + + + + Care Team Providers + +------+ + | Care Vacuum Drum Drier Operator Name | Role | Phone [...] as of this encounter Progress Notes Interface, Waste Management Engineer In - 07/25/2005 5:02 AM PDT [id number] [facility] Date: 07/02/2005 Clinic Name: [facility] Discipline: Physical Therapy. [...] appointment with the clinic. Lauryn Zamora. / [id number] / [id number] / [id number] / Electronically signed by Robinson Hutson 07-24-2005 01:21:08 PM documented i n this encounter Plan of Treatment Not on filedocumented as of this encounter Visit Diagnoses Not on filedocumented in this encounter"
--- OUTSIDE RECORDS SUMMARY | ~2019-10-26 | XMS | Encounter Summary ---
Demographics + + + | Address | [address] | | | [place] [address] | + + + | Home Phone [...] [place] | | | | | [address] | | + + + + + Care Team Providers + +------+ + | Care Electronics Assembler And Tester Name | Role | Phone [...] of this encounter Progress Notes Interface, Vp Care Management In - 08/03/2006 3:07 AM PDTCLINIC DATE: [...] age-appropriate fashion. He continues to live in [place], [place] with his parents (mom's name is Nicky Duron), and his full sibling, Jared, who is 3 years of age, and 10-year-old Dave, who is a half-sibling. Dave has Attention Deficit Hyperactivity Disorder, and is on medication, Jared is reported to be developing typically thus far. Yamil is working outside of the home, driving cement truck locally, and Nicky is a gelatin plant supervisor at a [employer]. Yamil reports that Nicky typically works graveyard shift, so that the children's need for out of home daycare is limited, but when necessary, they have neighbors who are helpful to them. Medical coverage is through the [facility], and family care is the [facility]. Dr. Umm Kaufman continues as Pete's primary healthcare provider. 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 Neli Robison LCSW Electrical Linesworker BD:x49 [id number] signed by Fredo, Vp Care Management In at 08/03/2006 3:07 AM Barak huddleston, Vp Care Management In - 08/03/2006 3:07 AM GLADYS DATE: [...] father again today. Js Deng M.D., Ph.D. Metal Buildings Assembler, Head, Division of Pediatric Neurosurgery NRS:[id number] signed by Interface, Vp Care Management In at 08/03/2006 3:07 AM PDTInt flaquito, Vp Care Management In - 08/03/2006 3:07 AM PDTCLINIC DATE: 11/17/2001 CLINIC NAME: [facility] DISCIPLINE: PEDIATRIC UROLOGY This dictation is being dictated as supplementation to the dictated note by the Urology Resident, Dr. Humberto Ortiz. The patient is a qjpr-jarc-tbt male with a history of neurogenic bladder [...] repeat ultrasound. Dave Malik M.D., F.A.A.P. S:x50 [id number] signed by Interface, Vp Care Management In at 08/03/2006 3:07 AM PDTInt beverleycan, Vp Care Management In - 08/03/2006 3:07 AM PDTCLINIC DATE: [...] in one year. Robert Johnson M.D. Developmental Jig Grinder [facility]:x66 [id number] signed by Interface, Vp Care Management In at 08/03/2006 3:07 AM PDTInt erface, Vp Care Management In - 08/03/2006 3:07 AM PDTCLINIC DATE: 11/17/2001 CLINIC NAME: [facility] DISCIPLINE: ORTHOPEDICS ADDENDUM: Standing scoliosis film shows no significant scoliosis, but he does have some asymmetry at the lumbosacral level, due to the lumbosacral spina bifida, and abnormalities on the right side at the SI joint. The pelvis is level and hips appear normal. Reyna Buckley M.D. [place]/x95 [id number] signed by Interface, Vp Care Management In at 08/03/2006 3:07 AM PDTInt erface, Vp Care Management In - 08/03/2006 3:07 AM PDTCLINIC DATE: 11/17/2001 CLINIC NAME: [facility] DISCIPLINE: ORTHOPEDICS DIAGNOSIS: Lumbosacral lipomyelomeningocele. HISTORY: This is a 5-year, 12-bejbw-yyb male who has had no prior orthopedic [...] in six months. Reyna Buckley M.D. [place]/x88 [id number] signed by Interface, Vp Care Management In at 08/03/2006 3:07 AM PDTInt erface, Vp Care Management In - 08/03/2006 3:07 AM PDTCLINIC DATE: 11/17/2001 CLINIC NAME: [facility] DISCIPLINE: PEDIATRIC UROLOGY Patient is a 5-year 08-prtjy-ecr male with a lipomeningocele, lumbosacral. It was repaired on January 1996. We have been following him for his neurogenic bladder. Since his last visit, he has been doing well without intercurrent urinary tract infections. He catheterizes q.4.h., with a #8-Samoan catheter, getting moderate to large amounts of [...] for additional information. Dave Malik M.D. ME:x49 [id number] signed by Fredo, Vp Care Management In at 08/03/2006 3:07 AM [facility] flaquito, Vp Care Management In - 08/03/2006 3:07 AM PDT CLINIC [...] spina bifida program. Raul [place] WF/X64 P [id number] signed by Interface, Vp Care Management In at 08/03/2006 3:07 AM [facility] umented in this encounter Plan of Treatment Not on filedocumented as of this encounter Visit Diagnoses Not on filedocumented in this encounter"
--- OUTSIDE RECORDS SUMMARY | ~2019-10-26 | XMS | Encounter Summary ---
Demographics + + + | Address | [address] | | | [place] [address] | + + + | Home Phone [...] [place] | | | | | [address] | | + + + + + Care Team Providers + +------+ + | Care Hr Representative Name | Role | Phone | + +------+ + PCP | Unavailable | + +------+ + Encounter Details +--------+ + + + + | Date | Type | Department | Care Team | Description | +--------+ + + + + | 05/20/ | Results | [facility]th | Dave Malik MD | | | 1999 | Only | Floor [address] | [address] | | | | | St Mailcode: [facility] | Maritza Ferreira [place], | | | | | [facility] [place], [place] | [place] [address] | | | | | [address] | [phone] | | | | | [phone] | | | +--------+ + + + [...] + + | Performing | Address | City[facility] | Phone Number | | Organization | | | | + +---------+ + + | [facility] DEPARTMENT | | | | | RADIOLOGY | | | | + +---------+ + + documented in this encounter Visit Diagnoses Not on filedocumented in this encounter"
--- OUTSIDE RECORDS SUMMARY | ~2019-10-26 | XMS | Encounter Summary ---
Demographics + + + | Address | [address] | | | [place] [address] | + + + | Home Phone [...] [place] | | | | | [address] | | + + + + + Care Team Providers + +------+ + | Care Wrapper Leaf Inspector Name | Role | Phone | + +------+ + | Dajuan Jerome MD | PCP | | + +------+ + Encounter Details +--------+ + + + + | Date | Type | Department | Care Team | Description | +--------+ + + + + | 05/03/ | Orders Only | [facility] at [facility] 7th | | | | 2009 | | Floor [address] | | | | | | St Mailcode: [facility] | | | | | | [facility] [place], [place] | | | | | | [address] | | | | | | [phone] | | | +--------+ + + + [...]
--- OUTSIDE RECORDS SUMMARY | ~2019-10-26 | XMS | Encounter Summary ---
Demographics + + + | Address | [address] | | | [place] [address] | + + + | Home Phone [...] [place] | | | | | [address] | | + + + + + Care Team Providers + +------+ + | Care Welding Machine Assembler Name | Role | Phone | [...] Consultation | | | | cribed | [address] | | | | | | [address] Mailcode: | | | | | | [id number] | | | | | | [place], | | | | | | [place] [address] | | | | | | [phone] | | | +--------+ + + + [...] as of this encounter Progress Notes Interface, Byproducts Operator In - 12/08/2006 3:03 AM PST CLINIC [...] at Pete's young age. Pete lives in [place] with his parents, 7-year-old half brother Dave, and 3-month-old full brother Jared. His parents are not yet , and at this time neither are employed but are both looking for employment. Income for this family is restricted to Yamil's unemployment payment. The family also receives [employer] [place] and [facility] assistance. Pete's medical coverage is through the [facility] [place] [facility] [place] is the managed care program. The mother [...] moved back and forth a bit between [place] and [place] in the winter months and lost contact with those agencies. Nicky reports that they will soon be reevaluating Pete as possibly being eligible for Internet Security [employer] in the future. There are no social work activities other than to make sure that medical reports from today's visit get sent to Pete's primary care physician, the [facility], as well as Dr. Kaufman. This social media marketing analyst was able to obtain a message phone number as this family has no phone (Pete's maternal aunt Kiana at [phone]). There are no other social work activities planned, although social work remains available as needed. Neli Robison LCSW Policyholder Information Clerk BD:vitaliy nterface, Byproducts Operator In - 12/08/2006 3:03 AM [facility] CL[facility]IC DATE: 03/21/98 CLINIC NAME: [facility] [...] his next full appointment. Gilbert Romero M.D. Seaman, Orthopedics and Rehabilitation KAV:vitaliy nterface, Byproducts Operator In - 12/08/2006 3:03 AM [facility] CLIN[facility] DATE: 03/21/98 CLINIC: [facility] [...] other services at this time. As a [id number] boy, he is apparently displaying good consolidation [...] . Raul Zamora Physical Therapist WF:olivia nterface, Byproducts Operator In - 12/08/2006 3:03 AM [facility] CLINIC DATE: 03/21/98 CLINIC: [facility] [...] F.A.A.P. Professor, Surgery and Pediatrics JJ:olivia nterface, Byproducts Operator In - 12/08/2006 3:03 AM PST CLINIC [...] the appointment. Shiraz Vance Jr., M.D., F.A.A.P. Section Repairer, Neurosurgery and Pediatrics PATRICK:olivia documented in this encounter Plan of Treatment Not on filedocumented as of this encounter Visit Diagnoses Not on filedocumented in this encounter"
--- OUTSIDE RECORDS SUMMARY | ~2019-10-26 | XMS | Encounter Summary ---
Demographics + + + | Address | [address] | | | [place] [address] | + + + | Home Phone | | + + + | Preferred Language | Unknown | + + + | Marital Status | Single | + + + | Nondenominational Affiliation | CHR | + + + [...] [place] | | | | | [address] | | + + + + + Care Team Providers + +------+ + | Care Software Analyst Name | Role | Phone | + +------+ + PCP | Unavailable | + +------+ + Encounter Details +--------+ + + + + | Date | Type | Department | Care Team | Description | +--------+ + + + + | 11/17/ | Results | [facility] at [facility] 7th | Dave Malik MD | | | 2001 | Only | Floor [address] | [address] | | | | | St Mailcode: [facility] | [place], | | | | | [facility] [place], [place] | [place] [address] | | | | | [address] | [phone] | | | | | [phone] | | | +--------+ + + + [...] | + +---------+ + + | [facility] DEPARTMENT OF | | | | | RADIOLOGY | | | | + +---------+ + + documented in this encounter Visit Diagnoses Not on filedocumented in this encounter"
--- OUTSIDE RECORDS SUMMARY | ~2019-10-26 | XMS | Clinical Summary ---
Demographics + + + | Address | [address] | | | [place] [address] | + + + | Home Phone | | + + + | Preferred Language | Unknown | + + + | Marital Status | Unknown | + + + | Rastafari Affiliation | Unknown | + + + | Race | Unknown | + + + | Ethnic Group | Unknown | + + + Author + + + | Author | [facility] | | | and [place] | + + + | Organization | [facility] | | | and [place] [...] Team Providers + +------+ + | Care Level Designer Name | Role | Phone | [...]
--- OUTSIDE RECORDS SUMMARY | 2019-10-26 16:32 | XMS ---
PreManage Notification: ADAMA BASHIR Security Vice President Risk Management Events No recent Security Events currently on file CRITERIA MET - Group Notification - [facility] CARE PROVIDERS MARIUM FISH Physician Outside Contractor Sales Current PHONE: [phone] Aleena Abdul Community Health Worker 07/21/2019-Current PHONE: [phone] WILLIAM LI [facility] Care [facility] PHONE: Unknown LAURENCE GODOY Primary Care Bhavna SANTIAGO PHONE: Unknown EDSON COOPER Primary Care Current PHONE: [phone] Kaden has no Care Guidelines for this patient. Care History Medical/Surgical 05/05/2018 [facility] - Patient is currently established with [facility]. If patient is seen in the ED during business hours. Please contact [facility] at [facility] at [phone]. Care Recommendation: This patient has had 5 or more Emergency Department visits in the last 12 months.\T\nbsp; Patient requires education on the scope and purpose of the ED as an acute care provider not a Primary Care Provider and should not be utilized for chronic conditions.\T\nbsp; If patient returns to ED please contact Community Health WorkerMaria A at [phone]. These are guidelines and the provider should exercise clinical judgment when providing care. E.[facility]. V[facility] COUNT (12 MO.) [facility] TOTAL 5 NOTE: Visits indicate total known visits. ED/UCC VISIT TRACKING (12 MO.) 10/26/2019 16:30 [facility] [place] TYPE: Emergency COMPLAINT: - FLANK PAIN 08/07/2019 00:00 [facility] [place] TYPE: Emergency COMPLAINT: - CATHETER ISSUE 07/24/2019 14:40 [facility] [place] TYPE: Emergency DIAGNOSES: - ALLERGIC REACTION TO BUG BITE - Cellulitis of right upper limb 07/21/2019 01:55 [facility] [place] TYPE: Emergency DIAGNOSES: - GENERAL MEDICAL 12/18/2018 20:02 [facility] [place] TYPE: Emergency DIAGNOSES: - Periapical abscess without sinus - Sepsis, unspecified organism Sepsis, u - ABSCESS ON FACE - Cellulitis of face INPATIENT VISIT TRACKING (12 MO.) 2018 01:35 [facility] Tricia MARIANO TYPE: General Medicine DIAGNOSES: - dental abcess [email or web address]
[2019-10-26] MEDS ORDERED: ADVIL200 MG PO (16:56)
[2019-10-26] MEDS ORDERED: TYLENOL EXTRA500 MG PO (16:56)
[2019-10-26] MEDS ORDERED: CEPHALEXIN500 MG PO (19:41)
--- NOTE | 2019-10-26 22:54 | EKG ---
[facility] [address] [place], [place] [address] Signed Sinus tachycardia Otherwise normal ECG No previous ECGs available Confirmed by PRASHANT THOMASON MD ([id number]) on 10/26/2019 10:54:15 PM Electronically Signed By: PRASHANT THOMASON MD 10/26/19 2254 PATIENT NAME: ADAMA BASHIR Electrocardiogram DATE OF : [birth year] PHYSICIAN: PRASHANT THOMASON MD REPORT #: [id number] REPORT IS CONFIDENTIAL AND NOT TO BE RELEASED WITHOUT AUTHORIZATION
== END 2019-10-26 20:22 | disposition home or self-care (01) ==
LOC: ED 16:30
DX: N39.0 Urinary tract infection, site not specified (principal); J10.1 Influenza due to other identified influenza virus with other respiratory manifestations; F17.200 Nicotine dependence, unspecified, uncomplicated; Z88.0 Allergy status to penicillin; Z91.040 Latex allergy status; Z88.5 Allergy status to narcotic agent; Z88.1 Allergy status to other antibiotic agents
CPT/HCPCS: 51701; 71045; 80053; 81001; 83605; 83690; 85025; 87502; 93005; 93010; 99284-25; J0696; J1885; J7030

== ENCOUNTER 2020-11-05 12:32 | Emergency (ER) | payer OTHER ==
[~2020-11-05] VITALS: Ht 180.3 cm; Wt 70.6 kg
[~2020-11-05 12:32] MED LIST changes: +ADVIL200 MG PO; +TYLENOL EXTRA500 MG PO
--- OUTSIDE RECORDS SUMMARY | 2020-11-05 12:34 | XMS ---
PreManage Notification: ADAMA BASHIR Security Rolled Glass Crosscutter Events No recent Security Events currently on file CRITERIA MET - Group Notification - History of Sepsis Dx CARE PROVIDERS TRENT SEGURA Community Health Worker 07/21/2019-Current PHONE: [phone] Kaden has no Care Guidelines for this patient. Care History Medical/Surgical 10/27/2019 [facility] REFERRAL MADE-DUE TO PATIENT NON COMPLIANCE WITH PCP-PATIENT NO SHOWED TO MULTIPLE APTS WITH PCP EDSON COOPER. - PATIENT NEEDS A PCP. [facility] CASE MANAGEMENT NOTIFIED. E.D. VISIT COUNT (12 MO.) [address] [place] [address] TOTAL 1 NOTE: Visits indicate total known visits. ED/UCC VISIT TRACKING (12 MO.) 11/05/2020 12:32 [facility] [place] TYPE: Emergency COMPLAINT: - HAND LAC INPATIENT VISIT TRACKING (12 MO.) No inpatient visits to display in this time frame [email or web address]
[2020-11-05] MEDS ORDERED: KEFLEX500 MG PO (14:28)
== END 2020-11-05 14:42 | disposition home or self-care (01) ==
LOC: ED 12:32
DX: S66.921A Laceration of unspecified muscle, fascia and tendon at wrist and hand level, right hand, initial encounter (principal); W25.XXXA Contact with sharp glass, initial encounter; F17.200 Nicotine dependence, unspecified, uncomplicated; Z88.0 Allergy status to penicillin; Z88.5 Allergy status to narcotic agent; Z88.1 Allergy status to other antibiotic agents; Z91.010 Allergy to peanuts
CPT/HCPCS: 12002; 99282-25